=== PATIENT | male | born 1955 | race Caucasian/White ===

== ENCOUNTER 2016-09-15 01:43 | Inpatient (IN) | payer BC, MEDICARE ==
[2016-09-15] MEDS ORDERED: NITROGLYCERIN-D5W PMX 50 MG in DEXTROSE/WATER 1 250ML.BAG IV STA (02:00)
[2016-09-15 02:36] LABS: Calcium 9.3 mg/dL (8.4-10.2); Potassium 4.6 mmol/L (3.5-5.1); Total Bilirubin 0.5 mg/dL (0.2-1.3); Total Protein 6.8 g/dL (6.3-8.2)
[2016-09-15 02:40] LABS: Basophils # (A) 0.1 k/uL (0-0.2); Basophils % (A) 1 %; CHCM 32.1; Eosinophils # (A) 0.3 k/uL (0-0.7); Eosinophils % (A) 2 %; HCT 48.4 % (39.0-53.0); HDW 2.76; HGB 15.3 gm/dL (13.0-17.5); Luc # (Auto) 0.21; Luc % (Auto) 1; Lymphocytes # (A) 2.2 k/uL (1.0-4.8); Lymphocytes % (A) 15 %; MCH 28.8 pg (25.0-35.0); MCHC 31.6 g/dL (31.0-37.0); MCV 91.2 fL (80.0-100.0); Mean Platelet Volume 7.5; Monocytes # (A) 0.6 k/uL (0-1.0); Monocytes % (A) 4 %; Neutrophils # (A) 11.2 k/uL (1.3-7.7); Neutrophils % (A) 77 %; WBC 14.6 k/uL (3.8-10.6)
[2016-09-15 02:41] LABS: INR 1.1 (<1.1); Prothrombin Time 10.8 sec (9.0-12.0)
[2016-09-15 02:42] LABS: Partial Thromboplastin Time 26.5 sec (22.0-30.0)
[2016-09-15 03:11] LABS: Creatine Kinase MB 5.1 ng/mL (0.0-2.4); Troponin I 0.548 ng/mL (0.000-0.034)
--- NOTE | 2016-09-15 03:36 | XR ---
EXAM: XR Chest, 1 View CLINICAL HISTORY: Reason: dyspnea TECHNIQUE: Frontal view of the chest. COMPARISON: CXR 10/20/15 FINDINGS: Lungs: Pulmonary vascular congestion and interstitial infiltrates suggestive of pulmonary edema in the setting of congestive failure. Pleural space: Small pleural effusions. No pneumothorax. Heart: Unremarkable. No cardiomegaly. Mediastinum: Unremarkable. Bones/joints: Unremarkable. IMPRESSION: Pulmonary vascular congestion and interstitial infiltrates suggestive of pulmonary edema in the setting of congestive failure.
[2016-09-15] MEDS ORDERED: ENOXAPARIN 80 MG/0.8 ML SYRINGE SQ STA (04:02)
[2016-09-15] MEDS ORDERED: FUROSEMIDE 10 MG/ML 4 ML VIAL IV SCH (04:45)
[2016-09-15] MEDS ORDERED: SODIUM CHLORIDE 0.9% 1,000 ML IV SCH (04:45)
[2016-09-15] MEDS ORDERED: MAGNESIUM SULFATE SYG 4.06 MEQ/ML SYRINGE IV ONE (05:00)
[2016-09-15] MEDS ORDERED: ceFAZolin 1,000 MG in SODIUM CHLORIDE 0.9% IRRIGATIO 1,000 ML IRRIGATION ONE (05:00)
[2016-09-15] MEDS ORDERED: ALBUMIN HUMAN 5% 500 ML in EMPTY BAG 1 BAG IVPB ONE ×6 (05:00)
[2016-09-15] MEDS ORDERED: NOREPINEPHRIN 4 MG-0.9% NS PMX 4 MG/250 ML ML IV SCH (05:00)
[2016-09-15] MEDS ORDERED: ceFAZolin 2 GM in SODIUM CHLORIDE 0.9% 30 ML IVPB ONE (05:00)
[2016-09-15] MEDS ORDERED: HEPARIN SODIUM 1,000 UN/ML (10ML VL) IV ONE ×2 (05:00→12:38)
[2016-09-15] MEDS ORDERED: ceFAZolin 2,000 MG in SODIUM CHLORIDE 0.9% 30 ML IVPB ONE (05:00)
[2016-09-15] MEDS ORDERED: PROTAMINE SULFATE 10 MG/ML 25 ML VIAL IV ONE (05:00)
[2016-09-15] MEDS ORDERED: DEXTROSE 5% IN WATER 1,000 ML with POTASSIUM CHLORIDE 25 MEQ, SODIUM CHLORIDE 4MEQ/ML V... IV SCH ×6 (05:00)
[2016-09-15] MEDS ORDERED: ALBUMIN HUMAN 25% 50 ML in EMPTY BAG 1 BAG IVPB ONE (05:00)
[2016-09-15] MEDS ORDERED: AMINOCAPROIC ACID 5,000 MG in DEXTROSE 5% IN WATER 50 ML IV ONE ×4 (05:00)
[2016-09-15] MEDS ORDERED: MANNITOL 25% 12.5 GM/50 ML VIAL IV ONE ×2 (05:00)
[2016-09-15] MEDS ORDERED: PHENYLEPHRINE-0.9% NACL SYG 1 MG/10 ML SYRINGE IV ONE ×4 (05:00)
[2016-09-15] MEDS ORDERED: HEPARIN SODIUM,PORCINE 5,000 UNIT in SODIUM CHLORIDE 0.9% 500 ML IV ONE (05:00)
[2016-09-15] MEDS ORDERED: SODIUM BICARB 8.4% 50 ML SYR (1 MEQ/ML) IV ONE (05:00)
[2016-09-15] MEDS ORDERED: PROTAMINE SULFATE 250 MG in EMPTY BAG 1 BAG IV ONE (05:00)
[2016-09-15] MEDS ORDERED: AMINOCAPROIC ACID 250 MG/ML 20 ML VIAL IV ONE (05:00)
[2016-09-15] MEDS ORDERED: CLEVIDIPINE BUTYRATE 25 MG in EMPTY BAG 1 BAG IV ONE (05:00)
[2016-09-15] MEDS ORDERED: CALCIUM CHLORIDE 100 MG/ML 10 ML SYRINGE IVP ONE (05:00)
[2016-09-15] MEDS ORDERED: PROPOFOL 500 MG in EMPTY BAG 1 BAG IV ONE (05:00)
[2016-09-15] MEDS ORDERED: PHENYLEPHRINE 40 MG in SODIUM CHLORIDE 0.9% 250 ML IV ONE (05:00)
[2016-09-15] MEDS ORDERED: NITROGLYCERIN-D5W PMX 25 MG/250 ML BTL IV ONE (05:00)
[2016-09-15] MEDS ORDERED: INSULIN REGULAR 100 UNIT in SODIUM CHLORIDE 0.9% 100 ML IV ONE (05:00)
[2016-09-15] MEDS ORDERED: DEXTROSE 5% IN WATER 1,000 ML with POTASSIUM CHLORIDE 110 MEQ, MAGNESIUM SULFATE 16 MEQ... IV SCH ×5 (05:00)
[2016-09-15] MEDS ORDERED: PAPAVERINE 360 MG in SODIUM CHLORIDE 0.9% 90 ML IV ONE (05:00)
[2016-09-15] MEDS ORDERED: CHLORHEXIDINE GLUCONATE 15 ML CUP MUCOUS MEM ONE (05:00)
[2016-09-15 06:03] LABS: Glucose,Whole Blood 191 mg/dL (75-99)
[2016-09-15 07:08] LABS: Appearance,Urine Clear (Clear); Bacteria,Urine Rare /hpf; Bilirubin,Urine 2+ (Negative); Glucose,Urine (UA) Negative (Negative); Ketones,Urine Negative (Negative); Leukocyte Esterase,Urine Negative (Negative); Mucus,Urine Rare /hpf; Nitrite,Urine Negative (Negative); PH, Urine 5.5 (5.0-8.0); Particle Count 9445; Protein,Urine 2+ (Negative); Specific Gravity,Urine 1.014 (1.001-1.035); UA Billing (MACRO vs. MICRO) MICRO; Urobilinogen,Urine <2.0 mg/dL (<2.0); WBC,Urine 4 /hpf (0-5)
[2016-09-15] MEDS ORDERED: HEPARIN SODIUM,PORCINE 5,000 UNIT/ML 1 ML VIAL SQ SCH ×2 (08:00→09:00)
[2016-09-15] MEDS ORDERED: MAGNESIUM OXIDE 400 MG TAB PO SCH (09:00)
[2016-09-15] MEDS ORDERED: CLOPIDOGREL 75 MG TAB PO SCH (09:00)
[2016-09-15] MEDS ORDERED: INSULIN DETEMIR 100 UNIT/ML 10 ML VIAL SQ SCH ×2 (09:00→21:00)
[2016-09-15] MEDS ORDERED: NICOTINE 21MG/24HR PATCH TRANSDERM SCH (09:00)
[2016-09-15] MEDS ORDERED: ASPIRIN 81 MG CHEW PO SCH (09:00)
[2016-09-15] MEDS ORDERED: LISINOPRIL 10 MG TAB PO SCH (09:00)
[2016-09-15] MEDS ORDERED: FENOFIBRATE 160 MG TAB PO SCH (09:00)
[2016-09-15] MEDS ORDERED: FLUTICASONE 50MCG/SPRAY NASAL 16GM EA NOSTRIL SCH (09:00)
[2016-09-15] MEDS ORDERED: INSULIN LISPRO (humaLOG) 300 UNIT/3 ML VIAL SQ SCH ×2 (09:00→12:30)
[2016-09-15] MEDS ORDERED: ETODOLAC 300 MG CAPSULE PO SCH (09:00)
[2016-09-15] MEDS ORDERED: INSULIN GLARGINE 100 UNIT/ML 10 ML VIAL SQ SCH (09:00)
[2016-09-15] MEDS ORDERED: PANTOPRAZOLE 40 MG TABLET PO SCH (09:00)
--- NOTE | 2016-09-15 10:38 | ED ---
SOB HPI - General Chief Complaint: Shortness of Breath Stated Complaint: diff breathing Time Seen by Provider: 09/15/16 02:00 Source: family (), EMS Mode of arrival: EMS Limitations: no limitations - History of Present Illness Initial Comments: This patient is a 60-year-old man presenting to the emergency department by EMS for shortness of breath. History from the patient is somewhat limited as he is severely dyspneic. The patient's does provide some additional history. They report that he was in his usual state of health when he went to bed. He woke up approximately an hour and a half ago with the complaint that he was feeling short of breath. His breathing worsened and they called EMS. The patient is denying chest pain. He has not had nausea or vomiting. He is diaphoretic. EMS arrived and transported him here with nebulized treatment as he has history of COPD and also oxygen. The patient states she is not feeling much better. MD Complaint: shortness of breath Onset/Timin -: minutes(s) Improves With: nothing Worsens With: lying flat Known History Of: COPD Associated Symptoms: denies other symptoms - Related Data Home Medications Medication Instructions Recorded Confirmed Cholecalciferol [Vitamin D3] 1,000 unit PO DAILY@1200 10/07/13 09/15/16 Fenofibrate Nanocrystallized 145 mg PO DAILY 10/07/13 09/15/16 [Tricor] Lisinopril [Prinivil] 10 mg PO BID 10/07/13 09/15/16 Magnesium 200 mg PO DAILY 10/07/13 09/15/16 Melatonin 5 mg PO HS 10/07/13 09/15/16 Simvastatin [Zocor] 40 mg PO HS 10/07/13 09/15/16 Etodolac [Lodine] 300 mg PO BID 10/20/15 09/15/16 Fluticasone Nasal [place] [Flonase 1 spray EA NOSTRIL DAILY PRN 10/20/15 09/15/16 Nasal [place]] Insulin Aspart [NovoLOG] See Protocol SQ ACHS 09/15/16 09/15/16 Insulin Detemir [Levemir] 40 units SQ AC-BRKFST 09/15/16 09/15/16 Insulin Detemir [Levemir] 45 unit SQ HS 09/15/16 09/15/16 Previous Rx's Medication Instructions Recorded Clopidogrel [Plavix] 75 mg PO DAILY #30 tab 10/09/13 Aspirin 81 mg PO DAILY chew 10/22/15 Allergies Allergy/AdvReac Type Severity Reaction Status Date / Time No Known Allergies Allergy Verified 09/15/16 07:48 Review of Systems ROS Statement: Those systems with pertinent positive or pertinent negative responses have been documented in the HPI. ROS Other: All systems not noted in ROS Statement are negative. Limitations: ROS unobtainable due to patients medical condition Constitutional: Denies: fever Respiratory: Reports: dyspnea. Denies: cough, hemoptysis Cardiovascular: Reports: orthopnea. Denies: chest pain, edema, syncope Gastrointestinal: Denies: abdominal pain, vomiting, diarrhea Genitourinary: Denies: dysuria Musculoskeletal: Denies: back pain Skin: Denies: rash Neurological: Denies: headache, weakness, numbness Psychiatric: Reports: anxiety Past Medical History Past Medical History: Chest Pain / Angina, COPD, CVA/TIA, Diabetes Mellitus, Hyperlipidemia, Hypertension, Osteoarthritis (OA), Renal Disease, Supraventricular Tachycardia (SVT), Syncope, Vascular Disorder Additional Past Medical History / Comment(s): BACK PAIN History of Any Multi-Drug Resistant Organisms: None Reported Past Surgical History: Appendectomy, Hernia Repair, Joint Replacement Additional Past Surgical History / Comment(s): RIGHT HIP REPLACEMENT Past Anesthesia/Blood Transfusion Reactions: No Reported Reaction Past Psychological History: No Psychological Hx Reported Smoking Status: Current every day smoker Additional Past Alcohol Use History / Comment(s): 3 cigarellos a day - Past Family History Father Family Medical History: Myocardial Infarction ([place]) Mother Family Medical History: Coronary Artery Disease (CAD) Daughter(s) Family Medical History: No Reported History Son(s) Family Medical History: No Reported History General Exam Limitations: no limitations General appearance: alert, in distress Head exam: Present: atraumatic, normocephalic Eye exam: Present: normal appearance. Absent: scleral icterus, conjunctival injection Neck exam: Present: normal inspection, other (No JVD) Respiratory exam: Present: respiratory distress, wheezes, accessory muscle use, other (Patient is tachycardic, rate approximately 36 at my initial evaluation.) . Absent: rales, rhonchi, stridor Cardiovascular Exam: Present: normal rhythm, tachycardia (Rate is approximately 144 at my initial exam), gallop. Absent: systolic murmur, diastolic murmur, rubs GI/Abdominal exam: Present: soft. Absent: distended, tenderness, guarding, rebound, mass Extremities exam: Present: normal inspection, normal capillary refill. Absent: pedal edema, calf tenderness Back exam: Present: normal inspection. Absent: CVA tenderness (R), CVA tenderness (L) Neurological exam: Present: alert Psychiatric exam: Present: anxious Skin exam: Present: warm, intact, normal color, diaphoretic. Absent: rash, cyanosis, erythema, petechiae, pallor, mottled Course Vital Signs 09/15/16 09/15/16 09/15/16 01:51 01:55 01:56 Temperature 97.1 F L Pulse Rate 136 H 134 H 130 H Respiratory 48 H 48 H 46 H Rate Blood Pressure 188/117 176/96 156/87 O2 Sat by Pulse 96 94 L 94 L Oximetry 09/15/16 09/15/16 09/15/16 02:01 02:06 02:11 Temperature Pulse Rate 121 H 118 H 94 Respiratory 40 H 40 H 40 H Rate Blood Pressure 138/75 135/78 90/64 O2 Sat by Pulse 94 L 94 L 95 Oximetry 09/15/16 09/15/16 09/15/16 02:16 02:21 02:25 Temperature Pulse Rate 89 102 H 102 H Respiratory 40 H 28 H 25 H Rate Blood Pressure 81/50 79/52 83/53 O2 Sat by Pulse 95 98 98 Oximetry 09/15/16 09/15/16 09/15/16 02:30 02:35 02:41 Temperature Pulse Rate 102 H 101 H 99 Respiratory 32 H 20 22 Rate Blood Pressure 86/59 95/60 103/61 O2 Sat by Pulse 98 98 98 Oximetry 09/15/16 09/15/16 09/15/16 02:46 02:51 02:56 Temperature Pulse Rate 98 98 96 Respiratory 20 20 20 Rate Blood Pressure 107/63 103/58 101/60 O2 Sat by Pulse 98 99 99 Oximetry 09/15/16 09/15/16 09/15/16 03:06 03:11 03:16 Temperature Pulse Rate 94 92 92 Respiratory 20 20 20 Rate Blood Pressure 97/66 105/63 104/62 O2 Sat by Pulse 98 99 98 Oximetry 09/15/16 09/15/16 09/15/16 03:21 03:26 03:31 Temperature Pulse Rate 94 92 92 Respiratory 18 18 16 Rate Blood Pressure 105/62 105/58 103/57 O2 Sat by Pulse 97 97 97 Oximetry 09/15/16 09/15/16 09/15/16 03:36 03:41 03:46 Temperature Pulse Rate 90 92 90 Respiratory 16 16 16 Rate Blood Pressure 106/59 105/53 103/58 O2 Sat by Pulse 97 96 97 Oximetry 09/15/16 09/15/16 09/15/16 04:06 04:11 04:16 Temperature Pulse Rate 94 88 88 Respiratory 20 20 20 Rate Blood Pressure 101/56 103/55 93/52 O2 Sat by Pulse 92 L 98 97 Oximetry 09/15/16 09/15/16 09/15/16 04:21 04:26 04:36 Temperature Pulse Rate 86 92 86 Respiratory 20 20 20 Rate Blood Pressure 103/55 109/61 106/58 O2 Sat by Pulse 96 99 98 Oximetry 09/15/16 09/15/16 09/15/16 04:41 04:46 04:51 Temperature Pulse Rate 88 86 86 Respiratory 20 20 20 Rate Blood Pressure 101/55 102/58 113/63 O2 Sat by Pulse 98 99 98 Oximetry 09/15/16 09/15/16 04:56 05:16 Temperature 97.6 F Pulse Rate 88 Respiratory 20 Rate Blood Pressure 101/60 O2 Sat by Pulse 98 Oximetry Medical Decision Making - Medical Decision Making Patient is 60-year-old man with severe dyspnea and in congestive heart failure. He is changed over to the nonrebreather mask on arrival and he is given IV nitroglycerin by myself and boluses with reassessment. I did spend an initial 20 minutes at the bed side administering the boluses and reassessing the patient. He has improvement in his blood pressure and respiratory rate. The diaphoresis resolved and he is clinically feeling better. Case D/W Dr. Hidalgo, who will admit with cardiology consultationj. Patient found to have somewhat elevated troponin due to the CHF exacerbation and there may be a component non-STEMI. Patient has mild elevation of d-dimer, but the renal function is slightly elevated. Patient to have VQ scan and given Lovenox as coverage for both possible and STEMI and possible PE though with the resolution of the dyspnea suspect that all symptoms due to the hypertensive emergency with CHF/pulmonary edema. - Lab Data Result diagrams: 09/15/16 02:10 09/15/16 02:10 Lab Results 09/15/16 09/15/16 09/15/16 Range/Units 02:10 02:10 02:10 WBC 14.6 H (3.8-10.6) k/uL RBC 5.30 (4.30-5.90) m/uL Hgb 15.3 (13.0-17.5) gm/dL Hct 48.4 (39.0-53.0) % MCV 91.2 (80.0-100.0) fL MCH 28.8 (25.0-35.0) pg MCHC 31.6 (31.0-37.0) g/dL RDW 14.0 (11.5-15.5) % Plt Count 254 (150-450) k/uL Neutrophils % 77 % Lymphocytes % 15 % Monocytes % 4 % Eosinophils % 2 % Basophils % 1 % Neutrophils # 11.2 H (1.3-7.7) k/uL Lymphocytes # 2.2 (1.0-4.8) k/uL Monocytes # 0.6 (0-1.0) k/uL Eosinophils # 0.3 (0-0.7) k/uL Basophils # 0.1 (0-0.2) k/uL PT (9.0-12.0) sec INR (<1.1) APTT (22.0-30.0) sec D-Dimer (<0.60) mg/L FEU Sodium 140 (137-145) mmol/L Potassium 4.6 (3.5-5.1) mmol/L Chloride 112 H (98-107) mmol/L Carbon Dioxide 16 L (22-30) mmol/L Anion Gap 12 mmol/L BUN 41 H (9-20) mg/dL Creatinine 1.80 H (0.66-1.25) mg/dL Est GFR (MDRD) Af Amer 47 (>60 ml/min/1.73 sqM) Est GFR (MDRD) Non-Af 38 (>60 ml/min/1.73 sqM) Glucose 166 H (74-99) mg/dL Calcium 9.3 (8.4-10.2) mg/dL Magnesium 2.0 (1.6-2.3) mg/dL Total Bilirubin 0.5 (0.2-1.3) mg/dL AST 80 H (17-59) U/L ALT 119 H (21-72) U/L Alkaline Phosphatase 91 (38-126) U/L Total Creatine Kinase 310 H (55-170) U/L CK-MB (CK-2) 5.1 H* (0.0-2.4) ng/mL CK-MB (CK-2) Rel Index 1.6 Troponin I 0.548 H* (0.000-0.034) ng/mL NT-Pro-B Natriuret Pep pg/mL Total Protein 6.8 (6.3-8.2) g/dL Albumin 4.1 (3.5-5.0) g/dL 09/15/16 09/15/16 Range/Units 02:10 02:10 WBC (3.8-10.6) k/uL RBC (4.30-5.90) m/uL Hgb (13.0-17.5) gm/dL Hct (39.0-53.0) % MCV (80.0-100.0) fL MCH (25.0-35.0) pg MCHC (31.0-37.0) g/dL RDW (11.5-15.5) % Plt Count (150-450) k/uL Neutrophils % % Lymphocytes % % Monocytes % % Eosinophils % % Basophils % % Neutrophils # (1.3-7.7) k/uL Lymphocytes # (1.0-4.8) k/uL Monocytes # (0-1.0) k/uL Eosinophils # (0-0.7) k/uL Basophils # (0-0.2) k/uL PT 10.8 (9.0-12.0) sec INR 1.1 (<1.1) APTT 26.5 (22.0-30.0) sec D-Dimer 1.19 H (<0.60) mg/L FEU Sodium (137-145) mmol/L Potassium (3.5-5.1) mmol/L Chloride (98-107) mmol/L Carbon Dioxide (22-30) mmol/L Anion Gap mmol/L BUN (9-20) mg/dL Creatinine (0.66-1.25) mg/dL Est GFR (MDRD) Af Amer (>60 ml/min/1.73 sqM) Est GFR (MDRD) Non-Af (>60 ml/min/1.73 sqM) Glucose (74-99) mg/dL Calcium (8.4-10.2) mg/dL Magnesium (1.6-2.3) mg/dL Total Bilirubin (0.2-1.3) mg/dL AST (17-59) U/L ALT (21-72) U/L Alkaline Phosphatase (38-126) U/L Total Creatine Kinase (55-170) U/L CK-MB (CK-2) (0.0-2.4) ng/mL CK-MB (CK-2) Rel Index Troponin I (0.000-0.034) ng/mL NT-Pro-B Natriuret Pep 930 pg/mL Total Protein (6.3-8.2) g/dL Albumin (3.5-5.0) g/dL - EKG Data EKG shows normal: sinus rhythm, axis (Left axis), intervals (Normal), QRS complexes (LVH), ST-T waves (There are lateral T inversions) Rate: tachycardia Interpretation: LVH Disposition Clinical Impression: Congestive heart failure, Elevated d-dimer, Elevated troponin I level, Hypertensive emergency, Acute renal failure Disposition: ADMITTED IP TO THIS [facility] Condition: Serious
[2016-09-15] MEDS ORDERED: ALPRAZolam 0.5 MG TAB PO PRN (11:15)
[2016-09-15] MEDS ORDERED: ALPRAZolam 0.25 MG TAB PO PRN (11:15)
[2016-09-15] MEDS ORDERED: SODIUM CHLORIDE 0.9% 1,000 ML in EMPTY BAG 1 BAG IV ONE (11:15)
[2016-09-15] MEDS ORDERED: NITROGLYCERIN SL TABS 0.4 MG TAB SUBLINGUAL PRN (11:15)
[2016-09-15] MEDS ORDERED: ASPIRIN 325 MG TAB PO STA (11:15)
[2016-09-15] MEDS ORDERED: ATORVASTATIN 80 MG TAB PO STA (11:15)
--- NOTE | 2016-09-15 11:20 | P.NPCON ---
History of Present Illness - Reason for Consult acute renal failure - History of Present Illness Reason for consultation: Acute kidney injury on chronic kidney disease History of present illness: Patient is a 60-year-old male seen in renal consultation for acute kidney injury on chronic kidney disease. Patient has chronic kidney disease stage III secondary to diabetic kidney disease. His baseline creatinine appears to be near 1.5. 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 Creatinine on admission is 1.8. Patient presented to the hospital with dyspnea that started last night. Patient states he was unable to take a deep breath. Denies chest pain. His blood pressures have been in the systolic 80s to 100s. Chest x-ray revealed pulmonary edema and is currently maintained on Lasix 40 mg IV twice daily. Patient is a long-standing history of diabetes mellitus. His prior urinalysis revealed 2+ proteinuria without any hematuria. Appetite is good. No vomiting or diarrhea. Denies chest pain. Denies use of NSAIDs. Denies any family history of renal disease. Admits to good urine output without any hematuria or dysuria. No fever or chills. Vital signs are stable. General: The patient appeared well nourished and normally developed. HEENT: Head exam is unremarkable. Neck is without jugular venous distension. LUNGS: No rhonchi or wheezes. Breath sounds decreased. HEART: Rate and Rhythm are regular. First and second heart sounds normal. No murmurs, rubs or gallops. ABDOMEN: Abdominal exam reveals normal bowel sounds. Non-tender and non- distended. No evidence of peritonitis. Obese. EXTREMITITES: Trace edema. Past Medical History Past Medical History: Chest Pain / Angina, COPD, CVA/TIA, Diabetes Mellitus, Hyperlipidemia, Hypertension, Osteoarthritis (OA), Renal Disease, Supraventricular Tachycardia (SVT), Syncope, Vascular Disorder Additional Past Medical History / Comment(s): BACK PAIN History of Any Multi-Drug Resistant Organisms: None Reported Past Surgical History: Appendectomy, Hernia Repair, Joint Replacement Additional Past Surgical History / Comment(s): RIGHT HIP REPLACEMENT Past Anesthesia/Blood Transfusion Reactions: No Reported Reaction Past Psychological History: No Psychological Hx Reported Smoking Status: Current every day smoker Additional Past Alcohol Use History / Comment(s): 3 cigarellos a day - Past Family History Father Family Medical History: Myocardial Infarction ([place]) Mother Family Medical History: Coronary Artery Disease (CAD) Daughter(s) Family Medical History: No Reported History Son(s) Family Medical History: No Reported History Medications and Allergies Home Medications Medication Instructions Recorded Confirmed Type Cholecalciferol [Vitamin D3] 1,000 unit PO DAILY@1200 10/07/13 09/15/16 History Fenofibrate Nanocrystallized 145 mg PO DAILY 10/07/13 09/15/16 History [Tricor] Lisinopril [Prinivil] 10 mg PO BID 10/07/13 09/15/16 History Magnesium 200 mg PO DAILY 10/07/13 09/15/16 History Melatonin 5 mg PO HS 10/07/13 09/15/16 History Simvastatin [Zocor] 40 mg PO HS 10/07/13 09/15/16 History Etodolac [Lodine] 300 mg PO BID 10/20/15 09/15/16 History Fluticasone Nasal [place] [Flonase 1 spray EA NOSTRIL DAILY PRN 10/20/15 09/15/16 History Nasal [place]] Insulin Aspart [NovoLOG] See Protocol SQ ACHS 09/15/16 09/15/16 History Insulin Detemir [Levemir] 40 units SQ AC-BRKFST 09/15/16 09/15/16 History Insulin Detemir [Levemir] 45 unit SQ HS 09/15/16 09/15/16 History Allergies Allergy/AdvReac Type Severity Reaction Status Date / Time No Known Allergies Allergy Verified 09/15/16 07:48 Physical Exam Vitals: Vital Signs Temp Pulse Pulse Resp BP BP Pulse Ox 09/15/16 08:00 97.6 F 88 20 110/64 96 09/15/16 06:32 90 20 09/15/16 05:30 97.1 F L 90 20 115/70 100 09/15/16 05:16 97.6 F 09/15/16 04:56 88 20 101/60 98 09/15/16 04:51 86 20 113/63 98 09/15/16 04:46 86 20 102/58 99 09/15/16 04:41 88 20 101/55 98 09/15/16 04:36 86 20 106/58 98 09/15/16 04:26 92 20 109/61 99 09/15/16 04:21 86 20 103/55 96 09/15/16 04:16 88 20 93/52 97 09/15/16 04:11 88 20 103/55 98 09/15/16 04:06 94 20 101/56 92 L 09/15/16 03:46 90 16 103/58 97 09/15/16 03:41 92 16 105/53 96 09/15/16 03:36 90 16 106/59 97 09/15/16 03:31 92 16 103/57 97 09/15/16 03:26 92 18 105/58 97 09/15/16 03:21 94 18 105/62 97 09/15/16 03:16 92 20 104/62 98 09/15/16 03:11 92 20 105/63 99 09/15/16 03:06 94 20 97/66 98 09/15/16 02:56 96 20 101/60 99 09/15/16 02:51 98 20 103/58 99 09/15/16 02:46 98 20 107/63 98 09/15/16 02:41 99 22 103/61 98 09/15/16 02:35 101 H 20 95/60 98 09/15/16 02:30 102 H 32 H 86/59 98 09/15/16 02:25 102 H 25 H 83/53 98 09/15/16 02:21 102 H 28 H 79/52 98 09/15/16 02:16 89 40 H 81/50 95 09/15/16 02:11 94 40 H 90/64 95 09/15/16 02:06 118 H 40 H 135/78 94 L 09/15/16 02:01 121 H 40 H 138/75 94 L 09/15/16 01:56 130 H 46 H 156/87 94 L 09/15/16 01:55 134 H 48 H 176/96 94 L 09/15/16 01:51 97.1 F L 136 H 48 H 188/117 96 Intake and Output 09/14/16 09/15/16 09/15/16 22:59 06:59 14:59 Intake Total 0.25 Output Total 550 Balance 0.25 -550 Intake: Intake, IV Titration 0.25 Amount Nitroglycerin-D5w Pmx 50 0.25 mg In Dextrose/Water 1 250ml.bag @ 50 MCG/MIN 15 mls/hr IV .[id number] STA Rx#:[id number] Output: Urine 550 Other: Voiding Method Toilet # Voids 1 Weight 81.7 kg Results - Lab Results Most recent lab results Calcium 9.3 mg/dL (8.4-10.2) 09/15/16 02:10 Magnesium 2.0 mg/dL (1.6-2.3) 09/15/16 02:10 09/15/16 02:10 09/15/16 02:10 Assessment and Plan Plan: Assessment: #1. Nonoliguric acute kidney injury mostly prerenal secondary to diuresis and hypotension. Creatinine 1.8 today. #2. Chronic kidney disease stage III secondary to diabetic kidney disease with baseline creatinine near 1.5. #3. Metabolic acidosis secondary to acute kidney injury. #4. Volume overload. #5. Dyspnea related to vascular congestion. Rule out cardiac etiology. And: Continue Lasix 40 mg IV twice daily. Follow-up echocardiogram results. Avoid nephrotoxic agents and hypotensive episodes. Hold lisinopril for now. Add oral sodium bicarbonate 1300 mg twice daily. Maintain low salt diet. Repeat electrolytes in the morning. I did discuss with the patient the risk of developing contrast-induced nephropathy post cardiac catheterization and the potential need for renal replacement therapy. Patient is at a moderate risk due to his underlying CKD as well as diabetes status. Patient understands and agrees. I would recommend holding Lasix the night before and the the day of the cardiac catheterization. Will need to be cautious with IV hydration as he is currently fluid overloaded. Thank you for the consultation. I'll continue to follow the patient with you during his hospital stay.
--- NOTE | 2016-09-15 11:20 | P.PN ---
Progress Note - Text This is an addendum to the dictated cardiology consultation. The patient has a known history of hypertension, hyperlipidemia and diabetes mellitus as well as history of peripheral vessel disease status post CVA and TIA who presents with worsening dyspnea, quite severe on presentation and was EKG changes and T-wave inversion that is new to him there is minimal ST elevation in lead aVR. The patient has no prior document history of coronary disease and in 2016 his systolic function was normal. He denies any history of myocardial infarction or congestive heart failure. On presentation he was in severe pulmonary edema and he had elevated blood pressure. His troponin was minimally elevated and he had an abnormal echocardiogram on the preliminary report. His renal functions are abnormal at baseline but worse today. The patient presents with acute congestive heart failure, pulmonary edema and acute coronary syndrome. I have recommended to proceed with coronary angiography to further assess his status and guide his treatment. His a high risk procedure in view of the baseline renal function abnormality. Those findings and recommendations were discussed with the patient and he is in full understanding and agreement. Thank you for this consult we will follow with you.
--- NOTE | 2016-09-15 11:26 | P.CRDCN ---
History of Present Illness Consult date: 09/15/16 Requesting physician: Ashok Hidalgo Reason for Consult (text): Non-STEMI Chief complaint: Severe shortness of breath History of present illness: This is a 60-year-old gentleman with history of diabetes, hypertension , hyperlipidemia, prior TIA, chronic kidney disease, nicotine dependence, who presents to the hospital with symptoms of severe shortness of breath. He states that for the past couple of days he has had significant exertional shortness of breath to the point where he needed to stop what he was doing just to be able to breathe. He states also that he has noticed some tightness in his chest at the time of his difficulty in breathing. He denies any diaphoresis or nausea. Last night the patient states that he went to bed, woke up gasping for air, states that he thought he was going to . He called EMS and was brought here to the emergency room for further evaluation. We do not have EMS documentation in the chart. EKG on arrival unavailable, no scanned copy in the chart, no hard copy in the chart. No emergency room notes available. White blood cell count 14.6, hemoglobin 15.3, d-dimer 1.1, potassium 4.6, BUN 41, creatinine 1.8. Initial troponin which was drawn at 2 AM 0.54. BNP level 930. Chest x-ray performed on arrival revealed pulmonary vascular congestion and interstitial infiltrates suggestive of pulmonary edema. Blood pressure on arrival here 212/122, heart rate in the 130s, respirations 48, temperature 97.1, he was 95% on a 15% nonrebreather. It appears from the orders that the patient was initiated on a nitro drip at 50 mics, An hour later , the patient's blood pressure went down to 80 systolic. This morning's blood pressure 110/60 with a heart rate in the 80s. Patient was initiated on IV Lasix in the emergency room, and given a one time dose of Lovenox. I did obtain a stat EKG this morning which shows a normal sinus rhythm with ST elevation in aVR, ST depression and T-wave inversion in the lateral leads. We will attempt to obtain EKG performed on arrival in the emergency room as well as ER and EMS notes. At the time of my examination this morning patient continues to have mild shortness of breath, however much from admission. Past Medical History Past Medical History: Chest Pain / Angina, COPD, CVA/TIA, Diabetes Mellitus, Hyperlipidemia, Hypertension, Osteoarthritis (OA), Renal Disease, Supraventricular Tachycardia (SVT), Syncope, Vascular Disorder Additional Past Medical History / Comment(s): BACK PAIN History of Any Multi-Drug Resistant Organisms: None Reported Past Surgical History: Appendectomy, Hernia Repair, Joint Replacement Additional Past Surgical History / Comment(s): RIGHT HIP REPLACEMENT Past Anesthesia/Blood Transfusion Reactions: No Reported Reaction Past Psychological History: No Psychological Hx Reported Smoking Status: Current every day smoker Additional Past Alcohol Use History / Comment(s): 3 cigarellos a day - Past Family History Father Family Medical History: Myocardial Infarction ([place]) Mother Family Medical History: Coronary Artery Disease (CAD) Daughter(s) Family Medical History: No Reported History Son(s) Family Medical History: No Reported History Medications and Allergies Home Medications Medication Instructions Recorded Confirmed Type Cholecalciferol [Vitamin D3] 1,000 unit PO DAILY@1200 10/07/13 09/15/16 History Fenofibrate Nanocrystallized 145 mg PO DAILY 10/07/13 09/15/16 History [Tricor] Lisinopril [Prinivil] 10 mg PO BID 10/07/13 09/15/16 History Magnesium 200 mg PO DAILY 10/07/13 09/15/16 History Melatonin 5 mg PO HS 10/07/13 09/15/16 History Simvastatin [Zocor] 40 mg PO HS 10/07/13 09/15/16 History Etodolac [Lodine] 300 mg PO BID 10/20/15 09/15/16 History Fluticasone Nasal [place] [Flonase 1 spray EA NOSTRIL DAILY PRN 10/20/15 09/15/16 History Nasal [place]] Insulin Aspart [NovoLOG] See Protocol SQ ACHS 09/15/16 09/15/16 History Insulin Detemir [Levemir] 40 units SQ AC-BRKFST 09/15/16 09/15/16 History Insulin Detemir [Levemir] 45 unit SQ HS 09/15/16 09/15/16 History Allergies Allergy/AdvReac Type Severity Reaction Status Date / Time No Known Allergies Allergy Verified 09/15/16 07:48 Physical Exam Vitals: Vital Signs Temp Pulse Pulse Resp BP BP Pulse Ox 09/15/16 06:32 90 20 06/20/17 05:30 97.1 F L 90 20 115/70 100 09/15/16 05:16 97.6 F 09/15/16 04:56 88 20 101/60 98 09/15/16 04:51 86 20 113/63 98 09/15/16 04:46 86 20 102/58 99 09/15/16 04:41 88 20 101/55 98 09/15/16 04:36 86 20 106/58 98 09/15/16 04:26 92 20 109/61 99 09/15/16 04:21 86 20 103/55 96 09/15/16 04:16 88 20 93/52 97 09/15/16 04:11 88 20 103/55 98 09/15/16 04:06 94 20 101/56 92 L 09/15/16 03:46 90 16 103/58 97 09/15/16 03:41 92 16 105/53 96 09/15/16 03:36 90 16 106/59 97 09/15/16 03:31 92 16 103/57 97 09/15/16 03:26 92 18 105/58 97 09/15/16 03:21 94 18 105/62 97 09/15/16 03:16 92 20 104/62 98 09/15/16 03:11 92 20 105/63 99 09/15/16 03:06 94 20 97/66 98 09/15/16 02:56 96 20 101/60 99 09/15/16 02:51 98 20 103/58 99 09/15/16 02:46 98 20 107/63 98 09/15/16 02:41 99 22 103/61 98 09/15/16 02:35 101 H 20 95/60 98 09/15/16 02:30 102 H 32 H 86/59 98 09/15/16 02:25 102 H 25 H 83/53 98 09/15/16 02:21 102 H 28 H 79/52 98 09/15/16 02:16 89 40 H 81/50 95 09/15/16 02:11 94 40 H 90/64 95 09/15/16 02:06 118 H 40 H 135/78 94 L 09/15/16 02:01 121 H 40 H 138/75 94 L 09/15/16 01:56 130 H 46 H 156/87 94 L 09/15/16 01:55 134 H 48 H 176/96 94 L 09/15/16 01:51 97.1 F L 136 H 48 H 188/117 96 Intake and Output 09/14/16 09/15/16 09/15/16 22:59 06:59 14:59 Intake Total 0.25 Balance 0.25 Intake: Intake, IV Titration 0.25 Amount Nitroglycerin-D5w Pmx 50 0.25 mg In Dextrose/Water 1 250ml.bag @ 50 MCG/MIN 15 mls/hr IV .[id number] STA Rx#:[id number] Other: Voiding Method Toilet # Voids 1 Weight 81.7 kg PHYSICAL EXAMINATION: HEENT: Head is atraumatic, normocephalic. Pupils equal, round. Neck is supple. There is elevated jugular venous pressure. HEART EXAMINATION: Heart S1 and S2 systolic murmur is heard CHEST EXAMINATION: Lungs reveal diminished air entry to bilateral bases ABDOMEN: Soft, obese, nontender. Bowel sounds are heard. No organomegaly noted. EXTREMITIES: 2+ peripheral pulses with trace evidence of peripheral edema and no calf tenderness noted. NEUROLOGIC patient is awake, alert and oriented -3. . Results 09/15/16 02:10 09/15/16 02:10 Cardiac Enzymes 09/15/16 09/15/16 Range/Units 02:10 02:10 AST 80 H (17-59) U/L CK-MB (CK-2) 5.1 H* (0.0-2.4) ng/mL Troponin I 0.548 H* (0.000-0.034) ng/mL Coagulation 09/15/16 Range/Units 02:10 PT 10.8 (9.0-12.0) sec APTT 26.5 (22.0-30.0) sec CBC 09/15/16 Range/Units 02:10 WBC 14.6 H (3.8-10.6) k/uL RBC 5.30 (4.30-5.90) m/uL Hgb 15.3 (13.0-17.5) gm/dL Hct 48.4 (39.0-53.0) % Plt Count 254 (150-450) k/uL Comprehensive Metabolic Panel 09/15/16 Range/Units 02:10 Sodium 140 (137-145) mmol/L Potassium 4.6 (3.5-5.1) mmol/L Chloride 112 H (98-107) mmol/L Carbon Dioxide 16 L (22-30) mmol/L BUN 41 H (9-20) mg/dL Creatinine 1.80 H (0.66-1.25) mg/dL Glucose 166 H (74-99) mg/dL Calcium 9.3 (8.4-10.2) mg/dL AST 80 H (17-59) U/L ALT 119 H (21-72) U/L Alkaline Phosphatase 91 (38-126) U/L Total Protein 6.8 (6.3-8.2) g/dL Albumin 4.1 (3.5-5.0) g/dL Current Medications Generic Name Dose Route Start Last Admin Trade Name Freq PRN Reason Stop Dose Admin Ascorbic Acid 500 mg 09/15/16 12:00 Vitamin C PO DAILY@1200 [facility] Aspirin 81 mg 09/15/16 09:00 Aspirin PO DAILY [facility] Atorvastatin Calcium 20 mg 09/15/16 21:00 Lipitor PO HS [facility] Cholecalciferol 1,000 unit 09/15/16 12:00 Vitamin D3 PO DAILY@1200 [facility] Clopidogrel Bisulfate 75 mg 09/15/16 09:00 Plavix PO DAILY [facility] Fenofibrate 160 mg 09/15/16 09:00 Lofibra PO DAILY [facility] Fluticasone Propionate 1 spray 09/15/16 09:00 Flonase Nasal [place] EA NOSTRIL DAILY [facility] Furosemide 40 mg 09/15/16 04:45 09/15/16 06:00 Lasix IV 40 mg Q12H TERESA Administration Heparin Sodium (Porcine) 5,000 unit 09/15/16 09:00 Heparin SQ Q12HR [facility] Nitroglycerin/Dextrose 50 mg/ 250 mls @ 15 mls/hr 09/15/16 02:00 09/15/16 02: 14 IV Solution IV 09/15/16 18:39 10 mcg/min .[id number] STA 3 mls/hr Protocol Titration 50 MCG/MIN Sodium Chloride 1,000 mls @ 20 mls/hr 09/15/16 04:45 09/15/16 04:59 Saline 0.9% IV 20 mls/hr .Q24H TERESA Administration Insulin Detemir 40 unit 09/15/16 09:00 Levemir SQ AC-BRKFST [facility] Insulin Detemir 45 unit 09/15/16 21:00 Levemir SQ HS TERESA Insulin Glargine 44 unit 09/15/16 09:00 Lantus SQ DAILY [facility] Insulin Human Lispro 5 unit 09/15/16 09:00 Humalog SQ TID TER[facility]A Lisinopril 10 mg 09/15/16 09:00 Zestril PO BID TER[facility]A Magnesium Oxide 400 mg 09/15/16 09:00 Mag-Ox PO DAILY TER[facility]A Melatonin 5 mg 09/15/16 21:00 Melatonin PO HS TER[facility]A Nicotine 1 patch 09/15/16 09:00 Habitrol 21mg/24hr Patch TRANSDERM DAILY [facility] Non-Formulary Medication 0 unit 09/15/16 12:30 Insulin Aspart SQ ACHS TER[facility] Pantoprazole Sodium 40 mg 09/15/16 09:00 Protonix PO AC-BRKFST TERESA Intake and Output 09/14/16 09/15/16 09/15/16 22:59 06:59 14:59 Intake Total 0.25 Balance 0.25 Intake: Intake, IV Titration 0.25 Amount Nitroglycerin-D5w Pmx 50 0.25 mg In Dextrose/Water 1 250ml.bag @ 50 MCG/MIN 15 mls/hr IV .[id number] STA Rx#:[id number] Other: Voiding Method Toilet # Voids 1 Weight 81.7 kg 09/15/16 02:10 09/15/16 02:10 EKG Interpretations (text) EKG performed this morning shows a normal sinus rhythm with ST elevation in aVR ST depression and T-wave inversion in the lateral leads. Assessment and Plan Plan: Assessment and plan #1 non-ST elevation myocardial infarction #2 hypertensive urgency #3 history of hypertension #4 congestive cardiac failure systolic acute on chronic #5 diabetes #6 hyperlipidemia #7 nicotine dependence #8 COPD #9 acute on chronic kidney disease #10 prior TIA #11 abnormal liver enzymes likely secondary to congestion Plan We will discontinue the subcu heparin, start the patient on IV heparin drip. Increase Lipitor to 40 mg daily. Continue IV Lasix. Obtain EKGs in the ER notes. Patient will need to undergo cardiac catheterization, however the wrist is increased because of the abnormal renal function. Understanding the risks, and benefits. Dr. Cowan did speak with the patient and the recommendation is to take the patient to the cardiac catheterization lab. Further recommendations to follow... DNP note has been reviewed, I agree with a documented findings and plan of care. Patient was seen and examined.
[2016-09-15] MEDS ORDERED: SODIUM CHLORIDE 0.9% 500 ML IV ONE (11:36)
[2016-09-15] MEDS ORDERED: IV FLUID CONTINUATION 850 ML IV ONE (11:36)
[2016-09-15] MEDS ORDERED: fentaNYL (PF) 50 MCG/ML 2 ML AMP IVP ONE ×2 (11:54→12:00)
[2016-09-15] MEDS ORDERED: LIDOCAINE 2% INJ 20 MG/ML SQ ONE ×2 (11:54→12:02)
[2016-09-15] MEDS ORDERED: diphenhydrAMINE 50 MG/ML 1 ML VIAL IVP ONE ×2 (11:55→12:00)
[2016-09-15 12:00] LABS: Creatine Kinase MB 6.3 ng/mL (0.0-2.4); Troponin I 0.936 ng/mL (0.000-0.034)
[2016-09-15] MEDS ORDERED: ASCORBIC ACID 500 MG TAB PO SCH (12:00)
[2016-09-15] MEDS ORDERED: CHOLECALCIFEROL 1,000 UNIT TAB PO SCH (12:00)
[2016-09-15] MEDS ORDERED: VERAPAMIL SYRINGE (5 MG/10 ML) INTRAARTER ONE (12:02)
[2016-09-15] MEDS ORDERED: INSULIN ASPART SQ SCH (12:30)
[2016-09-15] MEDS ORDERED: MD COMMUNICATION TO PHARMACY 1 EACH MISC PO ONE ×2 (12:32)
--- NOTE | 2016-09-15 12:55 | P.HPIM ---
History of Present Illness H&P Date: 09/15/16 Chief Complaint: Acute pulmonary edema, elevated troponin with possible acute coronary syndr 61-year-old male one of my office patient of known for long time with past medical history of CVA, PAD, CAD, COPD, chronic smoking, diabetes, chronic neuropathy and stage III kidney disease who was the hospital last in September 2015 for CVA. Patient has been doing well his blood sugar has been slightly elevated. Patient went to sleep was feeling well he woke up around 2:00 after midnight gasping for air having significant shortness of breath with mild tightness and pressure with mild cold sweat than slight wheezes and cough. Patient ended up coming to the emergency department at [facility] where was seen and evaluated surprisingly his chest x-ray showed sign of pulmonary edema first EKGs shows slight T waves inversion second EKG had mild change as well and his troponin continued to be mildly elevated. Patient was diagnosed with acute pulmonary edema secondary to congestive heart failure and possible from acute currently syndrome. Patient risk factor of having coronary artery disease extremely high at the time. Patient will be seen cardiology and possible need for an intervention with heart catheter. His chronic kidney disease with the current creatinine is quite bit elevated will involve nephrology diuresis patient and add Nitrol hopefully patient be more stable at this point and I hope creatinine will improve enough to allow him to go for heart catheter when he is ready. Review of Systems Constitutional: Reports chronic pain, Reports lethargy, Reports night sweats, Reports weakness, Reports weight gain, Denies as per HPI, Denies anorexia, Denies chills, Denies chronic headaches, Denies daytime sleepiness, Denies fatigue, Denies fever, Denies malaise, Denies poor appetite, Denies sweats, Denies weight loss Eyes: bilateral as per HPI Ears: bilateral: decreased hearing Ears, nose, mouth and throat: Reports nasal congestion, Reports post-nasal drip , Reports sinus pain, Reports sinus pressure, Denies as per HPI, Denies ant. neck pain, Denies bleeding gums, Denies dental pain, Denies dysphagia, Denies epistaxis, Denies headache, Denies hoarseness, Denies mouth pain, Denies nasal discharge, Denies neck fullness/pressure, Denies neck lump, Denies nose pain, Denies odynophagia, Denies swelling in mouth, Denies swelling in throat, Denies sore throat, Denies vertigo, Denies voice changes Cardiovascular: Reports chest pain, Reports claudication, Reports decreased exercise tolerance, Reports dyspnea on exertion, Reports edema, Reports high blood pressure, Reports irregular heart beat, Reports leg edema, Reports lightheadedness, Reports orthopnea, Reports paroxysmal nocturnal dyspnea, Denies as per HPI, Denies palpitations, Denies phlebitis, Denies rapid heart beat, Denies shortness of breath, Denies syncope Respiratory: Reports congestion, Reports cough, Reports dyspnea, Reports pain on inspiration, Reports sleep apnea, Denies as per HPI, Denies cough with sputum , Denies excessive sputum, Denies hemoptysis, Denies home oxygen, Denies pain, Denies pleurisy, Denies respiratory infections, Denies snoring, Denies wheezing Gastrointestinal: Reports abdominal pain, Reports bloating, Reports change in bowel habits, Reports dyspepsia, Reports indigestion, Reports loss of appetite, Reports nausea, Denies as per HPI, Denies belching, Denies BRBPR, Denies coffee ground emesis, Denies constipation, Denies diarrhea, Denies early satiety, Denies excessive gas, Denies heartburn, Denies hematemesis, Denies hematochezia , Denies jaundice, Denies lactose intolerance, Denies melena, Denies vomiting Genitourinary: Reports urinary frequency, Reports urinary hesitancy, Denies as per HPI, Denies decreased libido, Denies difficulties fathering child, Denies discharge, Denies dysuria, Denies erectile dysfunction, Denies flank pain, Denies genital pain, Denies genital sores, Denies hematuria, Denies impotence, Denies incontinence, Denies kidney stones, Denies nocturia, Denies polyuria, Denies testicular lump, Denies testicular pain, Denies urinary retention Musculoskeletal: Reports low back pain, Reports myalgias, Reports neck pain, Denies as per HPI, Denies arm numbness/tingling, Denies atrophy, Denies fractures, Denies frequent falls, Denies gait dysfunction, Denies hot joints, Denies leg numbness/tingling, Denies limitation of motion, Denies loss of height , Denies morning stiffness, Denies muscle cramps, Denies muscle weakness, Denies neck stiffness, Denies prior amputations, Denies redness of joints, Denies shooting arm pain, Denies shooting leg pain Musculoskeletal: bilateral: ankle pain Integumentary: Reports pruritus, Reports rash, Denies as per HPI, Denies acne, Denies boils, Denies brittle nails, Denies change in hair/nails, Denies color changes, Denies darkening of skin, Denies depigmentation, Denies dryness, Denies foot/leg ulcers, Denies growths, Denies hirsutism, Denies lesions, Denies onychomycosis, Denies sores, Denies striae, Denies unusual bruising, Denies wounds Neurological: Reports ataxia, Reports gait dysfunction, Reports memory loss, Reports motor disturbance, Reports paralysis, Reports tingling, Reports weakness , Denies as per HPI, Denies aphasia, Denies balance difficulties, Denies burning pain, Denies change in mentation, Denies change in smell/taste, Denies change in speech, Denies confusion, Denies convulsions, Denies double vision, Denies head injury, Denies headaches, Denies hearing difficulties, Denies lack of coordination, Denies loss of vision, Denies migraines, Denies numbness, Denies paresthesias, Denies seizures, Denies sensory deficit, Denies spasticity , Denies syncope, Denies tic, Denies transient paralysis, Denies tremors, Denies vertigo, Denies visual changes Psychiatric: Reports anhedonia, Reports anxiety, Reports change in sleep habits , Reports irritability, Denies as per HPI, Denies anxiety attacks, Denies change in appetite, Denies change in libido, Denies confusion, Denies depression , Denies difficulty concentrating, Denies disorientation, Denies hallucinations , Denies hopelessness, Denies hypersomnia, Denies insomnia, Denies memory loss, Denies mood swings, Denies paranoia, Denies sadness/tearfulness, Denies sleep disturbances, Denies suicidal ideation Endocrine: Reports cold intolerance, Reports excessive thirst, Reports nocturia , Denies as per HPI, Denies deepening of the voice, Denies excessive sweating, Denies fatigue, Denies flushing, Denies heat intolerance, Denies high blood sugars, Denies increase in ring/shoe/hat size, Denies low blood sugars, Denies palpitations, Denies polydipsia, Denies polyphagia, Denies polyuria, Denies proptosis, Denies recent glucocorticoid use, Denies thyroid mass, Denies weight change Hematologic/Lymphatic: Reports easy bruising, Denies as per HPI, Denies easy bleeding, Denies lymphadenopathy, Denies lymphedema, Denies thrombophilia Allergic/Immunologic: Denies as per HPI, Denies allergic rhinitis, Denies anaphylaxis, Denies angioedema, Denies gluten intolerance, Denies persistent infections, Denies seasonal allergies, Denies urticaria, Denies wheezing Past Medical History Past Medical History: Chest Pain / Angina, COPD, CVA/TIA, Diabetes Mellitus, Hyperlipidemia, Hypertension, Osteoarthritis (OA), Renal Disease, Supraventricular Tachycardia (SVT), Syncope, Vascular Disorder Additional Past Medical History / Comment(s): BACK PAIN History of Any Multi-Drug Resistant Organisms: None Reported Past Surgical History: Appendectomy, Hernia Repair, Joint Replacement Additional Past Surgical History / Comment(s): RIGHT HIP REPLACEMENT Past Anesthesia/Blood Transfusion Reactions: No Reported Reaction Past Psychological History: No Psychological Hx Reported Smoking Status: Current every day smoker Additional Past Alcohol Use History / Comment(s): 3 cigarellos a day - Past Family History Father Family Medical History: Myocardial Infarction ([place]) Mother Family Medical History: Coronary Artery Disease (CAD) Daughter(s) Family Medical History: No Reported History Son(s) Family Medical History: No Reported History Medications and Allergies Home Medications Medication Instructions Recorded Confirmed Type Cholecalciferol [Vitamin D3] 1,000 unit PO DAILY@1200 10/07/13 09/15/16 History Fenofibrate Nanocrystallized 145 mg PO DAILY 10/07/13 09/15/16 History [Tricor] Lisinopril [Prinivil] 10 mg PO BID 10/07/13 09/15/16 History Magnesium 200 mg PO DAILY 10/07/13 09/15/16 History Melatonin 5 mg PO HS 10/07/13 09/15/16 History Simvastatin [Zocor] 40 mg PO HS 10/07/13 09/15/16 History Etodolac [Lodine] 300 mg PO BID 10/20/15 09/15/16 History Fluticasone Nasal [place] [Flonase 1 spray EA NOSTRIL DAILY PRN 10/20/15 09/15/16 History Nasal [place]] Insulin Aspart [NovoLOG] See Protocol SQ ACHS 09/15/16 09/15/16 History Insulin Detemir [Levemir] 40 units SQ AC-BRKFST 09/15/16 09/15/16 History Insulin Detemir [Levemir] 45 unit SQ HS 09/15/16 09/15/16 History Allergies Allergy/AdvReac Type Severity Reaction Status Date / Time No Known Allergies Allergy Verified 09/15/16 07:48 Physical Exam Vitals: Vital Signs Temp Pulse Pulse Resp BP BP Pulse Ox 09/15/16 11:26 97.6 F 88 20 110/64 96 09/15/16 08:00 97.6 F 88 20 110/64 96 09/15/16 06:32 90 20 09/15/16 05:30 97.1 F L 90 20 115/70 100 09/15/16 05:16 97.6 F 09/15/16 04:56 88 20 101/60 98 09/15/16 04:51 86 20 113/63 98 09/15/16 04:46 86 20 102/58 99 09/15/16 04:41 88 20 101/55 98 09/15/16 04:36 86 20 106/58 98 09/15/16 04:26 92 20 109/61 99 09/15/16 04:21 86 20 103/55 96 09/15/16 04:16 88 20 93/52 97 09/15/16 04:11 88 20 103/55 98 09/15/16 04:06 94 20 101/56 92 L 09/15/16 03:46 90 16 103/58 97 09/15/16 03:41 92 16 105/53 96 09/15/16 03:36 90 16 106/59 97 09/15/16 03:31 92 16 103/57 97 09/15/16 03:26 92 18 105/58 97 09/15/16 03:21 94 18 105/62 97 09/15/16 03:16 92 20 104/62 98 09/15/16 03:11 92 20 105/63 99 09/15/16 03:06 94 20 97/66 98 09/15/16 02:56 96 20 101/60 99 09/15/16 02:51 98 20 103/58 99 09/15/16 02:46 98 20 107/63 98 06/20/17 02:41 99 22 103/61 98 09/15/16 02:35 101 H 20 95/60 98 09/15/16 02:30 102 H 32 H 86/59 98 09/15/16 02:25 102 H 25 H 83/53 98 09/15/16 02:21 102 H 28 H 79/52 98 09/15/16 02:16 89 40 H 81/50 95 09/15/16 02:11 94 40 H 90/64 95 09/15/16 02:06 118 H 40 H 135/78 94 L 09/15/16 02:01 121 H 40 H 138/75 94 L 09/15/16 01:56 130 H 46 H 156/87 94 L 09/15/16 01:55 134 H 48 H 176/96 94 L 09/15/16 01:51 97.1 F L 136 H 48 H 188/117 96 Intake and Output 09/14/16 09/15/16 09/15/16 22:59 06:59 14:59 Intake Total 0.25 Output Total 550 Balance 0.25 -550 Intake: Intake, IV Titration 0.25 Amount Nitroglycerin-D5w Pmx 50 0.25 mg In Dextrose/Water 1 250ml.bag @ 50 MCG/MIN 15 mls/hr IV .[id number] STA Rx#:[id number] Output: Urine 550 Other: Voiding Method Toilet # Voids 1 Weight 81.7 kg - Constitutional General appearance: no average body habitus, cooperative, disheveled, no mild distress, no morbidly obese, no acute distress, no obese, no severe distress, no thin - EENT Eyes: abnormal pupil, no anicteric sclerae, no disc margins sharp, no edentulous , no EOMI, no PERRLA, no fundus normal, no photophobia, no dentition normal, no poor dentition, no ptosis, no scleral icterus, normal appearance ENT: hard of hearing, no hearing grossly normal, no NA/AT, normal oropharynx, no other, no pharyngeal erythema, no thrush, no tonsillar exudates, no tonsillar swelling Ears: bilateral: normal - Neck Neck: no lymphadenopathy, normal ROM, no other, no rigidity, no stridor, no thyromegaly Carotids: bilateral: upstroke normal Thyroid: bilateral: normal size - Respiratory Respiratory: bilateral: diminished, dullness, rales, rhonchi, wheezing - Cardiovascular Rhythm: regular Heart sounds: normal: S1, S2 Abnormal Heart Sounds: systolic murmur, S3 Gallop - Gastrointestinal General gastrointestinal: no absent bowel sounds, decreased bowel sounds, no distended, no hepatomegaly, no hyperactive bowel sounds, normal bowel sounds, no organomegaly, no rigid, no scaphoid, soft, no splenomegaly, no tenderness, no umbilical hernia, no ventral hernia - Integumentary Integumentary: no calor, no cellulitis, no cyanotic, no decreased turgor, no flushed, no jaundiced, normal, no normal turgor, pale, rash, no ulcer - Neurologic Neurologic: CNII-XII intact - Musculoskeletal Musculoskeletal: no gait normal, generalized weakness, no strength equal bilaterally, no right sided weakness, no left sided weakness - Psychiatric Psychiatric: A&O x's 3, no appropriate affect, no intact judgment & insight Results CBC & Chem 7: 09/15/16 02:10 09/15/16 02:10 Labs: Abnormal Lab Results - Last 24 Hours (Table) 09/15/16 09/15/16 09/15/16 Range/Units 02:10 02:10 02:10 WBC 14.6 H (3.8-10.6) k/uL Neutrophils # 11.2 H (1.3-7.7) k/uL D-Dimer (<0.60) mg/L FEU Chloride 112 H (98-107) mmol/L Carbon Dioxide 16 L (22-30) mmol/L BUN 41 H (9-20) mg/dL Creatinine 1.80 H (0.66-1.25) mg/dL Glucose 166 H (74-99) mg/dL POC Glucose (mg/dL) (75-99) mg/dL AST 80 H (17-59) U/L ALT 119 H (21-72) U/L Total Creatine Kinase 310 H (55-170) U/L CK-MB (CK-2) 5.1 H* (0.0-2.4) ng/mL Troponin I 0.548 H* (0.000-0.034) ng/mL Urine Protein (Negative) Urine Bilirubin (Negative) Urine Bacteria (None) /hpf Hyaline Casts (0-2) /lpf Urine Mucus (None) /hpf 09/15/16 09/15/16 09/15/16 Range/Units 02:10 06:02 06:05 WBC (3.8-10.6) k/uL Neutrophils # (1.3-7.7) k/uL D-Dimer 1.19 H (<0.60) mg/L FEU Chloride (98-107) mmol/L Carbon Dioxide (22-30) mmol/L BUN (9-20) mg/dL Creatinine (0.66-1.25) mg/dL Glucose (74-99) mg/dL POC Glucose (mg/dL) 191 H (75-99) mg/dL AST (17-59) U/L ALT (21-72) U/L Total Creatine Kinase (55-170) U/L CK-MB (CK-2) (0.0-2.4) ng/mL Troponin I (0.000-0.034) ng/mL Urine Protein 2+ H (Negative) Urine Bilirubin 2+ H (Negative) Urine Bacteria Rare H (None) /hpf Hyaline Casts 8 H (0-2) /lpf Urine Mucus Rare H (None) /hpf 09/15/16 Range/Units 10:51 WBC (3.8-10.6) k/uL Neutrophils # (1.3-7.7) k/uL D-Dimer (<0.60) mg/L FEU Chloride (98-107) mmol/L Carbon Dioxide (22-30) mmol/L BUN (9-20) mg/dL Creatinine (0.66-1.25) mg/dL Glucose (74-99) mg/dL POC Glucose (mg/dL) (75-99) mg/dL AST (17-59) U/L ALT (21-72) U/L Total Creatine Kinase (55-170) U/L CK-MB (CK-2) 6.3 H* (0.0-2.4) ng/mL Troponin I 0.936 H* (0.000-0.034) ng/mL Urine Protein (Negative) Urine Bilirubin (Negative) Urine Bacteria (None) /hpf Hyaline Casts (0-2) /lpf Urine Mucus (None) /hpf Thrombosis Risk Factor Assmnt - DVT/VTE Prophylaxis DVT/VTE Prophylaxis: Pharmacologic Prophylaxis ordered, Mechanical Prophylaxis ordered - Choose All That Apply Each Risk Factor Represents 3 Points: History of DVT/PE Thrombosis Risk Factor Assessment Total Risk Factor Score: 3 Thrombosis Risk Factor Assessment Level: Moderate Risk Assessment and Plan Plan: 1 acute coronary syndrome: With mildly elevated troponin slight change in his EKG. Patient will be seen cardiology continue CK with troponin 3, continue patient conservative management and prepare for heart catheter as well. Echocardiogram was order and we will continue beta chandu and aspirin, antiplatelet agent, and add Nitrol. 2 acute pulmonary edema: Patient be continue on furosemide 40 mg IV every 8, continue Nitrol repeat chest x-ray echo and BNP in the next 24 hours. 3 severe dyspnea and shortness of breath acute on a chronic respiratory failure with advanced COPD: Continue patient on O2 continue updraft treatment and if needed will start patient on smaller dose of steroid. 4 chronic kidney disease stage III: Continue patient on mild hydration, consult nephrology continue current management for going for heart catheter I/O was creatinine with abdominal lower 1.5. 5 type 2 diabetes: Patient is on oral agent side insulin, continue Levemir on twice a day basis will continue Humalog 8-10 units before meals meals plus a sliding scales coverage. 6 COPD: Continue patient on O2, DuoNeb and Pulmicort. 7 hyperlipidemia: Remain on simvastatin 40 mg a day and TriCor 54 mg daily. 8 BPH: Continue to watch for any urinary retention. 9 chronic tobacco use and dependency: We will add nicotine patch 21 milligrams daily. 10 history of CVA: Still with slight residual. 11 hypertension: Patient has been on lisinopril 10 mg twice a day along with smaller doses of beta chandu. GI prophylaxis: Continue patient on pantoprazole 40 mg daily. DVT prophylaxis: Patient be on heparin 5000 units continues twice a day. CODE STATUS: Full code. Expectation from's admission: Patient in the hospital for more than 2 nights.
[2016-09-15] MEDS ORDERED: IODIXANOL 320 MG/ML 100 ML INTRAARTER ONE (13:03)
[2016-09-15] MEDS ORDERED: METOPROLOL TARTRATE 12.5 MG TAB PO ONE (13:05)
[2016-09-15] MEDS ORDERED: ASPIRIN 325 MG TAB PO ONE (13:08)
[2016-09-15 13:11] LABS: Cholesterol 173 mg/dL (<200); HDL Cholesterol 29 mg/dL (40-60); Triglycerides 356 mg/dL (<150)
[2016-09-15 13:21] LABS: Appearance,Urine Clear (Clear); Bilirubin,Urine 1+ (Negative); Glucose,Urine (UA) Negative (Negative); Ketones,Urine Negative (Negative); Leukocyte Esterase,Urine Negative (Negative); Nitrite,Urine Negative (Negative); Protein,Urine Trace (Negative); Specific Gravity,Urine 1.008 (1.001-1.035); UA Billing (MACRO vs. MICRO) CHEM; Urobilinogen,Urine <2.0 mg/dL (<2.0)
[2016-09-15 13:25] LABS: Hemoglobin A1C 7.3 % (4.2-6.1)
[2016-09-15] MEDS ORDERED: MIDAZOLAM 2 MG/2 ML VIAL IV ONE ×2 (13:39→13:41)
[2016-09-15 13:43] LABS: Hepatitis B Surface Ag Index 0.05
[2016-09-15 13:49] LABS: Hepatitis B Core IgM Index 0.02
--- NOTE | 2016-09-15 13:54 | P.GSCN ---
History of Present Illness Consult date: 09/15/16 Reason for Consult: Urgent consult for severe left main disease Requesting physician: Anup Cowan History of present illness: Patient is a 61's old gentleman with several comorbidities admitted with a picture of flash pulmonary edema and non-ST elevation myocardial infarction. 2- D echo showed moderate to severe left ventricular dysfunction which is a change compared to his previous echo in 2016 showing a normal left ventricular function. Urgent cardiac catheterization today showed more than 90% diffuse left main stenosis with moderate stenosis of the right coronary artery with some collaterals through the septals to the left system. Urgent cardiac breast surgical consult was placed. Patient had an intraoperative balloon pump inserted in view of his critical anatomy. Currently he is pain-free with EKG changes showing diffuse ST depression. Patient had a stroke in 2016 has a known occluded left carotid system. It took several months of rehabilitation to improve motor function of his right side of the body. He states that he walks with a limp at this point. He admits to dyspnea on exertion over the last several months. Review of Systems Negative except for the history of present illness Past Medical History Past Medical History: Chest Pain / Angina, COPD, CVA/TIA, Diabetes Mellitus, Hyperlipidemia, Hypertension, Osteoarthritis (OA), Renal Disease, Supraventricular Tachycardia (SVT), Syncope, Vascular Disorder Additional Past Medical History / Comment(s): BACK PAIN History of Any Multi-Drug Resistant Organisms: None Reported Past Surgical History: Appendectomy, Hernia Repair, Joint Replacement Additional Past Surgical History / Comment(s): RIGHT HIP REPLACEMENT Past Anesthesia/Blood Transfusion Reactions: No Reported Reaction Past Psychological History: No Psychological Hx Reported Smoking Status: Current every day smoker Additional Past Alcohol Use History / Comment(s): 3 cigarellos a day - Past Family History Father Family Medical History: Myocardial Infarction ([place]) Mother Family Medical History: Coronary Artery Disease (CAD) Daughter(s) Family Medical History: No Reported History Son(s) Family Medical History: No Reported History Medications and Allergies Home Medications Medication Instructions Recorded Confirmed Type Cholecalciferol [Vitamin D3] 1,000 unit PO DAILY@1200 10/07/13 09/15/16 History Fenofibrate Nanocrystallized 145 mg PO DAILY 10/07/13 09/15/16 History [Tricor] Lisinopril [Prinivil] 10 mg PO BID 10/07/13 09/15/16 History Magnesium 200 mg PO DAILY 10/07/13 09/15/16 History Melatonin 5 mg PO HS 10/07/13 09/15/16 History Simvastatin [Zocor] 40 mg PO HS 10/07/13 09/15/16 History Etodolac [Lodine] 300 mg PO BID 10/20/15 09/15/16 History Fluticasone Nasal [place] [Flonase 1 spray EA NOSTRIL DAILY PRN 10/20/15 09/15/16 History Nasal [place]] Insulin Aspart [NovoLOG] See Protocol SQ ACHS 09/15/16 09/15/16 History Insulin Detemir [Levemir] 40 units SQ AC-BRKFST 09/15/16 09/15/16 History Insulin Detemir [Levemir] 45 unit SQ HS 09/15/16 09/15/16 History Allergies Allergy/AdvReac Type Severity Reaction Status Date / Time No Known Allergies Allergy Verified 09/15/16 07:48 Surgical - Exam Vital Signs Temp Pulse Resp BP Pulse Ox 97.1 F L 134 H 48 H 212/122 95 09/15/16 01:51 09/15/16 01:51 09/15/16 01:51 09/15/16 01:51 09/15/16 01:51 - General no distress - Respiratory normal expansion - Cardiovascular Rhythm: regular Heart Sounds: normal: S1, S2 - Abdomen Abdomen: distended - Genitourinary Deferred - Rectum Deferred - Neurologic Unable to complete a full motor exam however patient has 4 over 5 motor strength in his right body and normal cord urination. Results - Labs 09/15/16 02:10 09/15/16 02:10 Abnormal Lab Results - Last 24 Hours (Table) 09/15/16 09/15/16 09/15/16 Range/Units 02:10 02:10 02:10 WBC 14.6 H (3.8-10.6) k/uL Neutrophils # 11.2 H (1.3-7.7) k/uL D-Dimer (<0.60) mg/L FEU Chloride 112 H (98-107) mmol/L Carbon Dioxide 16 L (22-30) mmol/L BUN 41 H (9-20) mg/dL Creatinine 1.80 H (0.66-1.25) mg/dL Glucose 166 H (74-99) mg/dL POC Glucose (mg/dL) (75-99) mg/dL AST 80 H (17-59) U/L ALT 119 H (21-72) U/L Total Creatine Kinase 310 H (55-170) U/L CK-MB (CK-2) 5.1 H* (0.0-2.4) ng/mL Troponin I 0.548 H* (0.000-0.034) ng/mL Urine Protein (Negative) Urine Bilirubin (Negative) Urine Bacteria (None) /hpf Hyaline Casts (0-2) /lpf Urine Mucus (None) /hpf 09/15/16 09/15/16 09/15/16 Range/Units 02:10 06:02 06:05 WBC (3.8-10.6) k/uL Neutrophils # (1.3-7.7) k/uL D-Dimer 1.19 H (<0.60) mg/L FEU Chloride (98-107) mmol/L Carbon Dioxide (22-30) mmol/L BUN (9-20) mg/dL Creatinine (0.66-1.25) mg/dL Glucose (74-99) mg/dL POC Glucose (mg/dL) 191 H (75-99) mg/dL AST (17-59) U/L ALT (21-72) U/L Total Creatine Kinase (55-170) U/L CK-MB (CK-2) (0.0-2.4) ng/mL Troponin I (0.000-0.034) ng/mL Urine Protein 2+ H (Negative) Urine Bilirubin 2+ H (Negative) Urine Bacteria Rare H (None) /hpf Hyaline Casts 8 H (0-2) /lpf Urine Mucus Rare H (None) /hpf 09/15/16 09/15/16 Range/Units 10:51 13:00 WBC (3.8-10.6) k/uL Neutrophils # (1.3-7.7) k/uL D-Dimer (<0.60) mg/L FEU Chloride (98-107) mmol/L Carbon Dioxide (22-30) mmol/L BUN (9-20) mg/dL Creatinine (0.66-1.25) mg/dL Glucose (74-99) mg/dL POC Glucose (mg/dL) (75-99) mg/dL AST (17-59) U/L ALT (21-72) U/L Total Creatine Kinase (55-170) U/L CK-MB (CK-2) 6.3 H* (0.0-2.4) ng/mL Troponin I 0.936 H* (0.000-0.034) ng/mL Urine Protein Trace H (Negative) Urine Bilirubin 1+ H (Negative) Urine Bacteria (None) /hpf Hyaline Casts (0-2) /lpf Urine Mucus (None) /hpf Diabetes panel 09/15/16 Range/Units 02:10 Sodium 140 (137-145) mmol/L Potassium 4.6 (3.5-5.1) mmol/L Chloride 112 H (98-107) mmol/L Carbon Dioxide 16 L (22-30) mmol/L BUN 41 H (9-20) mg/dL Creatinine 1.80 H (0.66-1.25) mg/dL Glucose 166 H (74-99) mg/dL Calcium 9.3 (8.4-10.2) mg/dL AST 80 H (17-59) U/L ALT 119 H (21-72) U/L Alkaline Phosphatase 91 (38-126) U/L Total Protein 6.8 (6.3-8.2) g/dL Albumin 4.1 (3.5-5.0) g/dL Calcium panel 09/15/16 Range/Units 02:10 Calcium 9.3 (8.4-10.2) mg/dL Albumin 4.1 (3.5-5.0) g/dL Pituitary panel 09/15/16 Range/Units 02:10 Sodium 140 (137-145) mmol/L Potassium 4.6 (3.5-5.1) mmol/L Chloride 112 H (98-107) mmol/L Carbon Dioxide 16 L (22-30) mmol/L BUN 41 H (9-20) mg/dL Creatinine 1.80 H (0.66-1.25) mg/dL Glucose 166 H (74-99) mg/dL Calcium 9.3 (8.4-10.2) mg/dL Adrenal panel 09/15/16 Range/Units 02:10 Sodium 140 (137-145) mmol/L Potassium 4.6 (3.5-5.1) mmol/L Chloride 112 H (98-107) mmol/L Carbon Dioxide 16 L (22-30) mmol/L BUN 41 H (9-20) mg/dL Creatinine 1.80 H (0.66-1.25) mg/dL Glucose 166 H (74-99) mg/dL Calcium 9.3 (8.4-10.2) mg/dL Total Bilirubin 0.5 (0.2-1.3) mg/dL AST 80 H (17-59) U/L ALT 119 H (21-72) U/L Alkaline Phosphatase 91 (38-126) U/L Total Protein 6.8 (6.3-8.2) g/dL Albumin 4.1 (3.5-5.0) g/dL - Imaging EKG: report reviewed, image reviewed Additional studies: 2-D echo shows reportedly an EF of 30% with no significant valvular abnormality Cardiac catheterization shows severe left main disease with moderate right coronary artery stenosis. Intervertebral pump is in good position Assessment and Plan Plan: 61's old gentleman with several comorbidities including and not limited to previous CVA (documented [place] infar[place] 02022) known occluded left carotid system , CKD stage III, chronic plavix intake , with presently severe critical left main disease presenting as flash pulmonary edema, moderate to severe LV dysfunction, warranting emergent coronary artery bypass grafting. Patient evidently at high risk of mortality, stroke, dialysis, bleeding etc .... This has been discussed with him and his over the phone. He seemed to understood them and agreed to proceed. Thank you Dr. Cowan for the privilege of this consult
[2016-09-15 14:00] LABS: Hepatitis C Virus IgG Ab Negative (Negative); Hepatitis C Virus IgG Index 0.04
[2016-09-15] MEDS ORDERED: MUPIROCIN 2% OINT 22 GM TUBE TOPICAL SCH (14:00)
[2016-09-15] MEDS ORDERED: ALBUMIN HUMAN 5% 500 ML VIAL IVPB ONE (14:23)
[2016-09-15] MEDS ORDERED: SODIUM BICARB 8.4% 50 ML SYR (1 MEQ/ML) ONE (14:23)
[2016-09-15] MEDS ORDERED: HEPARIN SODIUM,PORCINE 10,000 UNIT/ML 1 ML VIAL ONE (14:23)
[2016-09-15] MEDS ORDERED: ePHEDrine 50 MG/ML 1 ML AMP ONE (14:23)
[2016-09-15] MEDS ORDERED: SUCCINYLCHOLINE CHLORIDE 100 MG/5 ML SYR IV ONE (14:23)
[2016-09-15] MEDS ORDERED: VECURONIUM 10 MG VIAL IV ONE (14:23)
[2016-09-15] MEDS ORDERED: MIDAZOLAM 2 MG/2 ML VIAL ONE (14:23)
[2016-09-15] MEDS ORDERED: ETOMIDATE 2 MG/ML 10 ML VIAL ONE (14:23)
[2016-09-15] MEDS ORDERED: fentaNYL (PF) 50 MCG/ML 50 ML VIAL ONE (14:23)
[2016-09-15] MEDS ORDERED: PROTAMINE SULFATE 10 MG/ML 5 ML VIAL IV ONE (14:23)
[2016-09-15] MEDS ORDERED: PHENYLEPHRINE-0.9% NACL SYG 1 MG/10 ML SYRINGE ONE (14:23)
[2016-09-15] MEDS ORDERED: HEPARIN SODIUM 1,000 UN/ML (10ML VL) ONE (14:23)
[2016-09-15] MEDS ORDERED: LIDOCAINE 2% SYG (PF) 100 MG/5 ML ONE (14:23)
[2016-09-15 15:14] LABS: Glucose,Whole Blood 142 mg/dL (75-99)
[2016-09-15 17:12] LABS: Glucose,Whole Blood 145 mg/dL (75-99)
--- NOTE | 2016-09-15 17:44 | P.CNPUL ---
History of Present Illness Consult date: 09/15/16 Chief complaint: Shortness of breath History of present illness: 61-year-old male with past medical history of CVA, PAD, CAD, COPD, chronic smoking, diabetes, chronic neuropathy and stage III kidney disease who was the hospital last in September 2015 for CVA. The patient presented to the ER complaining of sudden onset shortness of breath that awoke him from sleep. The chest x-ray showed sign of pulmonary edema. EKGs shows slight T waves inversion second EKG had mild change as well and his troponin continued to be mildly elevated. Patient was diagnosed with acute pulmonary edema secondary to congestive heart failure. The patient was taken to the cardiac catheter lab and found to have left main disease. The patient was subsequently put on a balloon pump. The patient is seen and examined in the recovery unit. The patient is currently being prepped for a CABG this evening. Further history is difficult to obtain at this time. Review of Systems All systems: negative Past Medical History Past Medical History: Chest Pain / Angina, COPD, CVA/TIA, Diabetes Mellitus, Hyperlipidemia, Hypertension, Osteoarthritis (OA), Renal Disease, Supraventricular Tachycardia (SVT), Syncope, Vascular Disorder Additional Past Medical History / Comment(s): BACK PAIN History of Any Multi-Drug Resistant Organisms: None Reported Past Surgical History: Appendectomy, Hernia Repair, Joint Replacement Additional Past Surgical History / Comment(s): RIGHT HIP REPLACEMENT Past Anesthesia/Blood Transfusion Reactions: No Reported Reaction Past Psychological History: No Psychological Hx Reported Smoking Status: Current every day smoker Additional Past Alcohol Use History / Comment(s): 3 cigarellos a day - Past Family History Father Family Medical History: Myocardial Infarction ([place]) Mother Family Medical History: Coronary Artery Disease (CAD) Daughter(s) Family Medical History: No Reported History Son(s) Family Medical History: No Reported History Medications and Allergies Home Medications Medication Instructions Recorded Confirmed Type Cholecalciferol [Vitamin D3] 1,000 unit PO DAILY@1200 10/07/13 09/15/16 History Fenofibrate Nanocrystallized 145 mg PO DAILY 10/07/13 09/15/16 History [Tricor] Lisinopril [Prinivil] 10 mg PO BID 10/07/13 09/15/16 History Magnesium 200 mg PO DAILY 10/07/13 09/15/16 History Melatonin 5 mg PO HS 10/07/13 09/15/16 History Simvastatin [Zocor] 40 mg PO HS 10/07/13 09/15/16 History Etodolac [Lodine] 300 mg PO BID 10/20/15 09/15/16 History Fluticasone Nasal [place] [Flonase 1 spray EA NOSTRIL DAILY PRN 10/20/15 09/15/16 History Nasal [place]] Insulin Aspart [NovoLOG] See Protocol SQ ACHS 09/15/16 09/15/16 History Insulin Detemir [Levemir] 40 units SQ AC-BRKFST 09/15/16 09/15/16 History Insulin Detemir [Levemir] 45 unit SQ HS 09/15/16 09/15/16 History Allergies Allergy/AdvReac Type Severity Reaction Status Date / Time No Known Allergies Allergy Verified 09/15/16 07:48 Physical Exam Osteopathic Statement: *. No significant issues noted on an osteopathic structural exam other than those noted in the History and Physical/Consult. Vitals: Vital Signs Temp Pulse Pulse Resp BP BP Pulse Ox 09/15/16 11:26 97.6 F 88 20 110/64 96 09/15/16 08:00 97.6 F 88 20 110/64 96 09/15/16 06:32 90 20 09/15/16 05:30 97.1 F L 90 20 115/70 100 09/15/16 05:16 97.6 F 09/15/16 04:56 88 20 101/60 98 09/15/16 04:51 86 20 113/63 98 09/15/16 04:46 86 20 102/58 99 09/15/16 04:41 88 20 101/55 98 09/15/16 04:36 86 20 106/58 98 09/15/16 04:26 92 20 109/61 99 09/15/16 04:21 86 20 103/55 96 09/15/16 04:16 88 20 93/52 97 09/15/16 04:11 88 20 103/55 98 09/15/16 04:06 94 20 101/56 92 L 09/15/16 03:46 90 16 103/58 97 09/15/16 03:41 92 16 105/53 96 09/15/16 03:36 90 16 106/59 97 09/15/16 03:31 92 16 103/57 97 09/15/16 03:26 92 18 105/58 97 09/15/16 03:21 94 18 105/62 97 09/15/16 03:16 92 20 104/62 98 09/15/16 03:11 92 20 105/63 99 09/15/16 03:06 94 20 97/66 98 09/15/16 02:56 96 20 101/60 99 09/15/16 02:51 98 20 103/58 99 09/15/16 02:46 98 20 107/63 98 09/15/16 02:41 99 22 103/61 98 09/15/16 02:35 101 H 20 95/60 98 09/15/16 02:30 102 H 32 H 86/59 98 09/15/16 02:25 102 H 25 H 83/53 98 09/15/16 02:21 102 H 28 H 79/52 98 09/15/16 02:16 89 40 H 81/50 95 09/15/16 02:11 94 40 H 90/64 95 09/15/16 02:06 118 H 40 H 135/78 94 L 09/15/16 02:01 121 H 40 H 138/75 94 L 09/15/16 01:56 130 H 46 H 156/87 94 L 09/15/16 01:55 134 H 48 H 176/96 94 L 09/15/16 01:51 97.1 F L 136 H 48 H 188/117 96 Intake and Output 09/15/16 09/15/16 09/15/16 06:59 14:59 22:59 Intake Total 0.25 450 Output Total 550 Balance 0.25 -100 Intake: IV 450 Intake, IV Titration 0.25 Amount Nitroglycerin-D5w Pmx 50 0.25 mg In Dextrose/Water 1 250ml.bag @ 50 MCG/MIN 15 mls/hr IV .[id number] STA Rx#:[id number] Output: Urine 550 Other: Voiding Method Toilet # Voids 1 Weight 81.7 kg Gen.: Patient is alert and oriented 3, he appears to be emotionally upset and tearful Cardiovascular: Regular rate and rhythm, S1/S2 Lungs: Diminished at the bases otherwise clear Abdomen: Soft nontender nondistended positive bowel sounds Extremities: + Edema Results - Laboratory Findings CBC and BMP: 09/15/16 02:10 09/15/16 02:10 PT/INR, D-dimer PT 10.8 sec (9.0-12.0) 09/15/16 02:10 INR 1.1 (<1.1) 09/15/16 02:10 D-Dimer 1.19 mg/L FEU (<0.60) H 09/15/16 02:10 Abnormal lab findings: Abnormal Labs 09/15/16 09/15/16 09/15/16 02:10 02:10 02:10 WBC 14.6 H Neutrophils # 11.2 H D-Dimer Chloride 112 H Carbon Dioxide 16 L BUN 41 H Creatinine 1.80 H Glucose 166 H POC Glucose (mg/dL) Hemoglobin A1c AST 80 H ALT 119 H Total Creatine Kinase 310 H CK-MB (CK-2) 5.1 H* Troponin I 0.548 H* Triglycerides HDL Cholesterol TSH Urine Protein Urine Bilirubin Urine Bacteria Hyaline Casts Urine Mucus Crossmatch 09/15/16 09/15/16 09/15/16 02:10 06:02 06:05 WBC Neutrophils # D-Dimer 1.19 H Chloride Carbon Dioxide BUN Creatinine Glucose POC Glucose (mg/dL) 191 H Hemoglobin A1c AST ALT Total Creatine Kinase CK-MB (CK-2) Troponin I Triglycerides HDL Cholesterol TSH Urine Protein 2+ H Urine Bilirubin 2+ H Urine Bacteria Rare H Hyaline Casts 8 H Urine Mucus Rare H Crossmatch 09/15/16 09/15/16 09/15/16 10:51 12:45 12:45 WBC Neutrophils # D-Dimer Chloride Carbon Dioxide BUN Creatinine Glucose POC Glucose (mg/dL) Hemoglobin A1c 7.3 H AST ALT Total Creatine Kinase CK-MB (CK-2) 6.3 H* Troponin I 0.936 H* Triglycerides 356 H HDL Cholesterol 29 L TSH 0.383 L Urine Protein Urine Bilirubin Urine Bacteria Hyaline Casts Urine Mucus Crossmatch 09/15/16 09/15/16 09/15/16 12:45 13:00 15:02 WBC Neutrophils # D-Dimer Chloride Carbon Dioxide BUN Creatinine Glucose POC Glucose (mg/dL) 142 H Hemoglobin A1c AST ALT Total Creatine Kinase CK-MB (CK-2) Troponin I Triglycerides HDL Cholesterol TSH Urine Protein Trace H Urine Bilirubin 1+ H Urine Bacteria Hyaline Casts Urine Mucus Crossmatch See Detail 06/20/17 17:08 WBC Neutrophils # D-Dimer Chloride Carbon Dioxide BUN Creatinine Glucose POC Glucose (mg/dL) 145 H Hemoglobin A1c AST ALT Total Creatine Kinase CK-MB (CK-2) Troponin I Triglycerides HDL Cholesterol TSH Urine Protein Urine Bilirubin Urine Bacteria Hyaline Casts Urine Mucus Crossmatch - Diagnostic Findings Chest x-ray: report reviewed, image reviewed Assessment and Plan Plan: Acute hypoxic respiratory failure Acute exacerbation of CHF, systolic, ejection fraction 30% Pulmonary edema Acute coronary syndrome Coronary artery disease Need for CABG History of CVA History of peripheral arterial disease Active tobacco abuse COPD Peripheral neuropathy CK D3 Diabetes mellitus type 2 BPH Hypertension Dyslipidemia O2 to maintain saturation greater than or equal to 88% Plan for CABG tonight per cardiothoracic surgery Vent management post surgery Pulmicort and DuoNeb's Cardiology recommendations Monitor renal function and urine output Hemodynamics per cardiothoracic surgery Smoking cessation is highly recommended GI and DVT prophylaxis Thank you for this consultation we'll continue to follow along
[2016-09-15 18:23] LABS: Glucose,Whole Blood 163 mg/dL (75-99)
[2016-09-15 19:03] LABS: Glucose,Whole Blood 351 mg/dL (75-99)
[2016-09-15 19:18] LABS: Glucose,Whole Blood 342 mg/dL (75-99)
[2016-09-15] MEDS ORDERED: ALBUMIN HUMAN 5% 250 ML IVPB ONE (19:26)
[2016-09-15 19:51] LABS: Glucose,Whole Blood 325 mg/dL (75-99)
[2016-09-15 20:18] LABS: Glucose,Whole Blood 296 mg/dL (75-99)
[2016-09-15 20:56] LABS: Glucose,Whole Blood 254 mg/dL (75-99)
[2016-09-15] MEDS ORDERED: ATORVASTATIN 20 MG TAB PO SCH (21:00)
[2016-09-15] MEDS ORDERED: SODIUM BICARBONATE TAB 650 MG TAB PO SCH (21:00)
[2016-09-15] MEDS ORDERED: MELATONIN 5 MG TABLET PO SCH (21:00)
[2016-09-15 21:27] LABS: Glucose,Whole Blood 193 mg/dL (75-99)
[2016-09-15] MEDS: NITROGLYCERIN-D5W PMX 50 MG in DEXTROSE/WATER 1 250ML.BAG IV ONE (22:00)
[2016-09-15] MEDS ORDERED: PROPOFOL 50 ML IV ONE (22:16)
[2016-09-15] MEDS ORDERED: METOCLOPRAMIDE 5 MG/ML 2 ML VIAL IVP PRN (22:18)
[2016-09-15] MEDS ORDERED: Magnesium Replacement Protocol 1 EACH MISC MISCELLANE PRN (22:18)
[2016-09-15] MEDS ORDERED: ONDANSETRON 4 MG/2 ML VIAL IVP PRN (22:18)
[2016-09-15] MEDS ORDERED: PROPOFOL 500 MG in EMPTY BAG 1 BAG IV SCH (22:18)
[2016-09-15] MEDS ORDERED: LACTATED RINGERS 1,000 ML IV SCH (22:18)
[2016-09-15] MEDS ORDERED: Potassium Replacement Protocol 1 EACH MISC MISCELLANE PRN (22:18)
[2016-09-15] MEDS ORDERED: BENZOCAINE/MENTHOL LOZENG 1 EACH LOZENGE MUCOUS MEM PRN (22:18)
[2016-09-15] MEDS ORDERED: CALCIUM GLUCONATE 2,000 MG in SODIUM CHLORIDE 0.9% 100 ML IVPB PRN (22:18)
[2016-09-15] MEDS ORDERED: Phosphorus Replacement Protoco 1 EACH MISC MISCELLANE PRN (22:18)
[2016-09-15 22:30] LABS: Glucose,Whole Blood 129 mg/dL (75-99)
[2016-09-15 22:43] LABS: Basophils % (A) 0 %; CH 29.2; Eosinophils % (A) 0 %; HCT 26.2 % (39.0-53.0); Luc # (Auto) 0.06; Luc % (Auto) 1; Lymphocytes # (A) 1.2 k/uL (1.0-4.8); Lymphocytes % (A) 9 %; MCH 29.2 pg (25.0-35.0); MCHC 32.7 g/dL (31.0-37.0); MCV 89.4 fL (80.0-100.0); Mean Platelet Volume 8.6; Monocytes # (A) 0.4 k/uL (0-1.0); Monocytes % (A) 3 %; Neutrophils # (A) 11.5 k/uL (1.3-7.7); Neutrophils % (A) 87 %; RBC 2.93 m/uL (4.30-5.90); RDW 14.1 % (11.5-15.5); WBC 13.2 k/uL (3.8-10.6); WBC (Perox) 13.06
[2016-09-15 22:50] LABS: INR 1.4 (<1.1); Partial Thromboplastin Time 32.3 sec (22.0-30.0); Prothrombin Time 13.3 sec (9.0-12.0)
[2016-09-15 22:52] LABS: HGB 8.6 gm/dL (13.0-17.5)
[2016-09-15] MEDS: IPRATROPIUM-ALBUTEROL 3 ML NEB INHALATION SCH ×2 (22:53→23:17)
--- NOTE | 2016-09-15 22:57 | XR ---
INDICATION: Post open heart COMPARISON: CXR 09/15/16 at 02:50 FINDINGS: Single frontal view of the chest is provided. Status post cardiac surgery with median sternotomy wires and mediastinal surgical clips. Endotracheal tube terminates 2.8 cm above the jun. Right internal jugular venous approach [place] catheter extends to the proximal main pulmonary artery. Endogastric tube extends to the stomach. There are 2 mediastinal drains and a left-sided chest tube. Mildly enlarged cardiac silhouette with pulmonary vascular congestion. Lung volumes are mildly decreased. No significant pleural effusion is evident. There is no pneumothorax. Regional skeleton appears intact. IMPRESSION: 1. Postoperative appearance of the chest with appropriately positioned support lines and tubes.
[2016-09-15 23:02] LABS: Glucose,Whole Blood 109 mg/dL (75-99)
[2016-09-15 23:05] LABS: Ionized Calcium 4.6 mg/dL (4.5-5.3)
[2016-09-15 23:11] LABS: ABG Base Excess -1.1 mmol/L; ABG HCO3 23 mmol/L (21-25); ABG PCO2 37 mmHg (35-45); ABG PH 7.41 (7.35-7.45); ABG PO2 88 mmHg (83-108); ABG TCO2 24 mmol/L (19-24)
[2016-09-15 23:12] LABS: Calcium 7.5 mg/dL (8.4-10.2); Magnesium 2.9 mg/dL (1.6-2.3); Potassium 3.5 mmol/L (3.5-5.1); Total Bilirubin 0.7 mg/dL (0.2-1.3); Total Protein 4.8 g/dL (6.3-8.2)
--- NOTE | 2016-09-15 23:12 | CC ---
DATE OF SERVICE: Mr. Cerna is a 60-year-old male with known history of hypertension, hyperlipidemia, diabetes mellitus, history of cerebrovascular accident, chronic tobacco use, who presented with significant dyspnea on exertion with ST-segment changes with some mild elevation in leads aVR and ST depression across the precordial leads. His troponin was minimally elevated and his creatinine on presentation was 1.8. Patient has a known history of chronic kidney disease. In view of his presentation and the possibility of left main disease, recommendation was made regarding cardiac catheterization, understanding that this is higher risk than average. The procedure as well as risks and complications were discussed with the patient, who was in full understanding and agreement. PROCEDURE: Patient was brought to the label drier in a fasting semi-sedated state after receiving fentanyl and Benadryl and achieving moderate conscious sedated state. Using Xylocaine anesthesia and Seldinger technique, a 6 [place] sheath were introduced in the right radial artery. Selective right and left coronary angiography was performed using 5 [place] 3-1/2 Bend right and left Ingrid catheters. Multiple views were taken of the arteries, including hemiaxial views. Following that, using Xylocaine anesthesia and Seldinger technique, a 6 [place] sheath was introduced in the right femoral artery. Subsequently in intervals the balloon pump was introduced, positioned and secured in place. After that, the sheath in the right radial artery was removed, and hemostasis was obtained with deployment of a TR band. There was no complication. Patient was hemodynamically stable and pain-free at the end of procedure. He received 4000 units of intravenous heparin as well as intra-arterial Verapamil. FINDINGS FLUOROSCOPY: There is calcification involving the left main and the proximal LAD. LEFT MAIN: This vessel has a 99% stenosis at the bifurcation. LEFT ANTERIOR DESCENDING ARTERY: This vessel is large in caliber giving rise to a diagonal branch of small caliber. The left anterior descending artery in the proximal segment has about a 50% plaque. The rest of the vessel has no high-grade stenosis. LEFT CIRCUMFLEX: This is a non-dominant vessel that gives rise to 3 obtuse marginal branches. The first one has about a 60% to 70% stenosis. The second one has an 80% stenosis. The vessel is diffusely diseased proximally. RIGHT CORONARY ARTERY: This vessel is a dominant vessel, large in caliber, bifurcating into PDA, posterolateral segment and branches. The right coronary artery in mid segment has about a 60% to 70% plaque. The rest of the vessel has no high-grade stenosis. COLLATERALS: There is collateral from the right coronary artery toward the LAD. CONCLUSION: 1. Critical left main disease. 2. Moderate to significant disease in the mid right coronary artery. 3. calcified coronary arteries. RECOMMENDATIONS: I have recommended proceeding with emergent coronary artery bypass grafting. Those findings were discussed with Dr. Whatley, who evaluated the patient in the cardiac catheterization laboratory. SWAPNIL
--- NOTE | 2016-09-15 23:15 | LTR ---
September 15, 2016 RE: ErynChema Dear Dr. Hidalgo, I had the pleasure of performing cardiac catheterization on Mr. Cerna at [facility] on September 15, and a full copy of the procedure note will be forwarded to you. He was found to have significant distal left main disease. Based on those findings, I have recommended proceeding with emergent coronary artery bypass grafting. I will keep you updated on his progress. Thank you again for allowing me to participate in this patient's care. Please feel free to call with any questions. Sincerely, SERENE RAWLS MD
[2016-09-15 23:34] LABS: ABG Base Excess -0.3 mmol/L; ABG HCO3 24 mmol/L (21-25); ABG PCO2 39 mmHg (35-45); ABG PH 7.41 (7.35-7.45); ABG PO2 157 mmHg (83-108); ABG TCO2 25 mmol/L (19-24)
[2016-09-16 00:03] LABS: Glucose,Whole Blood 85 mg/dL (75-99)
[2016-09-16] MEDS: POTASSIUM CHLORIDE ORAL LIQUID 40 MEQ/30 ML CUP NG-TUBE SCH ×2 (00:10→01:00)
[2016-09-16] MEDS: NITROGLYCERIN-D5W PMX 50 MG in DEXTROSE/WATER 1 250ML.BAG IV ONE (00:22)
[2016-09-16] MEDS: ACETAMINOPHEN IV (For NPO) 1,000 MG in EMPTY BAG 1 BAG IVPB SCH ×5 (00:23→17:56)
[2016-09-16] MEDS: CLEVIDIPINE BUTYRATE 25 MG in EMPTY BAG 1 BAG IV SCH ×2 (00:24→22:59)
[2016-09-16] MEDS: MUPIROCIN 2% OINT 22 GM TUBE NASAL SCH ×3 (00:25→21:55)
[2016-09-16] MEDS: ceFAZolin 2 GM in SODIUM CHLORIDE 0.9% 100 ML IVPB SCH ×3 (00:26→15:28)
[2016-09-16] MEDS: HEPARIN SODIUM,PORCINE 5,000 UNIT/ML 1 ML VIAL SQ SCH ×4 (00:39→22:56)
[2016-09-16 00:59] LABS: Glucose,Whole Blood 121 mg/dL (75-99)
[2016-09-16] MEDS: INSULIN REGULAR 100 UNIT in SODIUM CHLORIDE 0.9% 100 ML IV SCH (01:00)
[2016-09-16] MEDS: MORPHINE SULFATE 2 MG/ML SYRINGE IVP PRN ×3 (02:00→22:08)
[2016-09-16 02:08] LABS: Glucose,Whole Blood 154 mg/dL (75-99)
[2016-09-16 03:06] LABS: Glucose,Whole Blood 194 mg/dL (75-99)
[2016-09-16] MEDS: IPRATROPIUM-ALBUTEROL 3 ML NEB INHALATION SCH ×5 (03:13→19:56)
[2016-09-16] MEDS: DEXMEDETOMIDINE IN 0.9 % NACL 400 MCG in EMPTY BAG 1 BAG IV SCH ×3 (03:19→14:43)
[2016-09-16 04:02] LABS: Glucose,Whole Blood 200 mg/dL (75-99)
[2016-09-16 04:21] LABS: Basophils % (A) 0 %; CHCM 31.7; Eosinophils % (A) 0 %; HCT 27.3 % (39.0-53.0); HDW 2.89; HGB 8.4 gm/dL (13.0-17.5); Hypochromasia Slight; Luc # (Auto) 0.07; Luc % (Auto) 1; Lymphocytes # (A) 0.6 k/uL (1.0-4.8); Lymphocytes % (A) 4 %; MCH 28.6 pg (25.0-35.0); MCV 92.2 fL (80.0-100.0); Mean Platelet Volume 8.3; Monocytes # (A) 0.6 k/uL (0-1.0); Monocytes % (A) 4 %; Neutrophils # (A) 13.3 k/uL (1.3-7.7); Neutrophils % (A) 91 %; RBC 2.96 m/uL (4.30-5.90); RDW 14.3 % (11.5-15.5); WBC 14.6 k/uL (3.8-10.6); WBC (Perox) 13.59
[2016-09-16] MEDS ORDERED: ASPIRIN 325 MG TAB PO SCH (04:46)
[2016-09-16 05:02] LABS: ABG Base Excess -5.5 mmol/L; ABG HCO3 19 mmol/L (21-25); ABG Oxygen Saturation 96.4 % (94-97); ABG PCO2 35 mmHg (35-45); ABG PH 7.35 (7.35-7.45); ABG PO2 88 mmHg (83-108); ABG TCO2 20 mmol/L (19-24)
[2016-09-16 05:03] LABS: ABG Base Excess -7.6 mmol/L; ABG HCO3 19 mmol/L (21-25); ABG Oxygen Saturation 98.5 % (94-97); ABG PCO2 46 mmHg (35-45); ABG PH 7.25 (7.35-7.45); ABG PO2 133 mmHg (83-108); ABG TCO2 21 mmol/L (19-24)
[2016-09-16 05:04] LABS: ABG Base Excess -1.8 mmol/L; ABG HCO3 22 mmol/L (21-25); ABG PCO2 38 mmHg (35-45); ABG PH 7.39 (7.35-7.45); ABG PO2 >420 mmHg (83-108); ABG TCO2 24 mmol/L (19-24)
[2016-09-16 05:05] LABS: Ionized Calcium 4.8 mg/dL (4.5-5.3)
[2016-09-16 05:05] LABS: ABG Base Excess -3.8 mmol/L; ABG HCO3 23 mmol/L (21-25); ABG Oxygen Saturation 99.8 % (94-97); ABG PCO2 51 mmHg (35-45); ABG PH 7.27 (7.35-7.45); ABG PO2 274 mmHg (83-108); ABG TCO2 24 mmol/L (19-24)
[2016-09-16 05:06] LABS: ABG Base Excess -4.7 mmol/L; ABG HCO3 21 mmol/L (21-25); ABG Oxygen Saturation 99.9 % (94-97); ABG PCO2 44 mmHg (35-45); ABG PO2 326 mmHg (83-108); ABG TCO2 22 mmol/L (19-24)
[2016-09-16 05:07] LABS: Glucose,Whole Blood 189 mg/dL (75-99)
[2016-09-16 05:08] LABS: ABG Base Excess -2.8 mmol/L; ABG HCO3 22 mmol/L (21-25); ABG Oxygen Saturation 99.9 % (94-97); ABG PCO2 42 mmHg (35-45); ABG PH 7.34 (7.35-7.45); ABG PO2 314 mmHg (83-108); ABG TCO2 24 mmol/L (19-24)
[2016-09-16 05:10] LABS: ABG HCO3 20 mmol/L (21-25); ABG PCO2 44 mmHg (35-45); ABG PH 7.28 (7.35-7.45); ABG PO2 290 mmHg (83-108); ABG TCO2 21 mmol/L (19-24)
[2016-09-16 05:11] LABS: ABG Oxygen Saturation 99.9 % (94-97)
[2016-09-16 05:11] LABS: ABG Base Excess -2.8 mmol/L; ABG HCO3 23 mmol/L (21-25); ABG Oxygen Saturation 97.2 % (94-97); ABG PCO2 44 mmHg (35-45); ABG PH 7.33 (7.35-7.45); ABG PO2 100 mmHg (83-108); ABG TCO2 24 mmol/L (19-24)
[2016-09-16 05:12] LABS: ABG Base Excess -2.8 mmol/L; ABG HCO3 22 mmol/L (21-25); ABG Oxygen Saturation 95.6 % (94-97); ABG PCO2 40 mmHg (35-45); ABG PH 7.35 (7.35-7.45); ABG PO2 83 mmHg (83-108); ABG TCO2 23 mmol/L (19-24)
[2016-09-16 05:34] LABS: Calcium 7.9 mg/dL (8.4-10.2); Magnesium 2.6 mg/dL (1.6-2.3); Potassium 5.2 mmol/L (3.5-5.1); Total Bilirubin 0.4 mg/dL (0.2-1.3); Total Protein 4.5 g/dL (6.3-8.2)
[2016-09-16 05:48] LABS: ABG Base Excess -1.6 mmol/L; ABG HCO3 22 mmol/L (21-25); ABG PCO2 30 mmHg (35-45); ABG PH 7.47 (7.35-7.45); ABG PO2 82 mmHg (83-108); ABG TCO2 23 mmol/L (19-24)
[2016-09-16 06:01] LABS: Glucose,Whole Blood 166 mg/dL (75-99)
[2016-09-16] MEDS: MILRINONE-D5W PMX 20 MG in DEXTROSE/WATER 1 100ML.BAG IV SCH ×2 (06:12→14:07)
[2016-09-16] MEDS ORDERED: NOREPINEPHRIN 16 MG-0.9%NS PMX 16 MG/250 ML ML IV SCH (06:15)
[2016-09-16] MEDS: ALBUMIN HUMAN 5% 250 ML in EMPTY BAG 1 BAG IVPB PRN ×3 (07:00→14:40)
[2016-09-16 07:10] LABS: Glucose,Whole Blood 164 mg/dL (75-99)
--- NOTE | 2016-09-16 07:53 | XR ---
EXAMINATION TYPE: XR chest 1V portable DATE OF EXAM: 09/16/2016 HISTORY: Post Operative Cardiac Surgery. REFERENCE: Previous study dated 09/15/2016. FINDINGS: There has been a midline sternotomy. The patient is ET tube and NG tube as well as the patient's [place] catheter remain in place, uncha nged in appearance. There appears to be a counter pulsation aortic balloon pump in place, unchanged i n appearance. There is a left pleural drain. The heart is mildly prominent. There is vascular congestion and mild edema. There is left basilar air space disease. No definite pleural fluid is seen. Overall aeration has improved. IMPRESSION: IMPROVING POSTOPERATIVE CHANGES.
[2016-09-16 08:06] LABS: Glucose,Whole Blood 132 mg/dL (75-99)
--- NOTE | 2016-09-16 08:29 | OP ---
DATE OF SERVICE: 09/15/2016 SURGEON: Aundrea Whatley MD FLAKER OPERATOR: Tanner SALMON and Derrick Linares, nurse practitioner. 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 OPERATION: 1. Quadruple coronary artery bypass grafting using the left internal mammary artery to the intramyocardial left anterior descending artery, reverse saphenous vein graft connected to the aorta using the PAS-Port device and connected distally to the right coronary artery after local endarterectomy, reverse saphenous vein graft connected to the aorta using the PAS-Port device and anastomosed sequentially to the second obtuse marginal artery in a [id number] fashion then the third obtuse marginal artery in an end-to-side fashion. 2. Endoscopic harvesting of the left greater saphenous vein. 3. Intraoperative transesophageal echocardiogram and epiaortic scanning. 4. Intraoperative graft flow measurements using the [id number].comstim system. ANESTHESIA: ESTIMATED BLOOD LOSS: SPECIMENS REMOVED: N/A COMPLICATIONS: OPERATIVE FINDINGS: as per post-op diagnosis INDICATION FOR SURGERY: Patient is a 60-year-old gentleman with above comorbidities, who was admitted with a picture of flash pulmonary edema and had positive cardiac enzymes. He had deep ST changes and for that was taken to the cardiac catheterization where severe left main disease was discovered, warranting insertion of an intra-aortic balloon pump. The right coronary artery had moderate disease in it. The ejection fraction was estimated at around 30%. His ejection fraction was normal around one year ago. Patient will be taken for emergent surgery with an increased risk in view of chronic Plavix intake, prior stroke and known occluded left CCA, left ventricular dysfunction and left main disease with diffuse atherosclerotic burden and kidney dysfunction. Risks, benefits, and alternatives were discussed with him and his . They understood them and agreed to proceed. DESCRIPTION OF THE PROCEDURE: Patient had a left brachial arterial line inserted in the preoperative holding area and had a right internal jugular Mere[place]-Myrtle catheter inserted. His PA pressure was 35/20, his cardiac index was 2. Subsequently, he was brought to the operating room and as I mentioned he had an intra-aortic balloon pump already inserted in the micro lab analyst and general endotracheal anesthesia was induced uneventfully. Chan catheter had been also inserted in the micro lab analyst. Patient received 2 grams of cefazolin intravenously. The chest, abdomen and both lower extremities were prepped and draped using ChloraPrep. Ioban was used to cover the skin. Transesophageal echocardiogram revealed evidence of global moderate to severe left ventricular dysfunction. No significant valvular abnormality at this point. The aorta appeared to be diseased. Midline sternotomy was performed and the bone was bit osteopenic. No bone wax was used. The left raya-sternum was elevated and left internal mammary artery was harvested in a semi-skeletonized fashion. The left pleura was intentionally opened in this process and was drained with 28 Dutch chest tube. I made a small breech in the right pleura intentionally at the end of the case to decompress any potential pneumothorax and the right pleura was not drained. In the same setting, the left greater saphenous vein was harvested endoscopically from groin to above ankle level after administration of 1000 units of heparin as the patient's baseline ACT was 187. All the branches were tied. The leg incisions were closed over a drain. Mediastinal fat was transected between 2 ties and epiaortic scanning revealed disease of ascending aorta. There was no protruding atheroma. However, we identified several wall calcification. Pericardium was opened in an inverted T fashion and pericardial cradle was created. Findings included a fatty heart with diffuse coronary artery disease and intramyocardial left anterior descending artery. The aorta was very short. It had a calcific plaque proximally up to midway more towards the left. There was another calcific plaque that started in the proximal arch on the convex side. After thorough assessment, we had room for clamping the aorta but limited residual space for proximals.. After administration of systemic heparin and placement of respective pledgeted pursestring at the level of the inner arch for the aortic cannulation and the level of the right atrial appendage for the venous cannulatio, a 21 Dutch soft flow aortic cannula and a 29/37 venous cannula were inserted. . Antegrade as well as retrograde cardioplegia catheters were placed. The mammary artery was double clipped distally and transected, had an excellent pulsatile flow in it; however it was thin-walled, spastic and around 1.5 mm in diameter. The vein was prepared and appeared to be of good quality, around 4 mm in diameter. We initiated cardiopulmonary bypass and with the heart empty, we remained warm. We looked at the target and it appeared that the LAD was totally intramyocardial. Using the epiaortic probe, I was able to locate it and found it deep in the myocardium and despite that position, it appeared to have also some wall disease in it, reflection of his advanced atherosclerotic burden. The right coronary artery wall appeared to be diseased and it was uncovered in the groove before it bifurcated as the branches were small. Looking at the lateral wall, the first obtuse marginal artery was very small by the time it came out of the groove and I was able to locate the second and the third obtuse marginal arteries, which will be the site for bypass. Judging the narrow space to work with on the aorta, I decided to perform my proximal anastomosis using the PAS-Port system. Two vein grafts long enough to reach the inferior wall and the lateral wall were fashioned, loaded on 2 PAS-Port device and deployed on the soft part of the mid ascending aorta for the left and on the anterior aspect of the proximal aorta for the right. Both proximal anastomoses were hemostatic. There was excellent flow from both ends. At this point, we initiated cardiopulmonary bypass and kept the intra-aortic balloon pump on internal pulsatile mode. The aorta was clamped and myocardial protection was achieved with an initial dose of 1 L of antegrade cold blood cardioplegia followed by 500 mL of retrograde cold blood cardioplegia with good arrest at 350cc. Subsequent doses were given combined retrograde and antegrade. The first distal anastomosis was between the vein graft already connected to the aorta and the right coronary artery, which was opened, had a wall disease in the form of a plaque that detached easily and required local endarterectomy. There was injury to its posterior wall that was repaired with 2 Prolene 7-0 tied on the outside. The anastomosis at this point was completed using Prolene 7-0 in continuous fashion. The second distal anastomosis between the vein graft already connected to the aorta and the second obtuse marginal artery in a trfi-fw-[id number] fashion. That artery was opened, it was around 1.5 mm in diameter and diseased and the anastomosis was completed using Prolene 7-0 in continuous fashion. The third distal anastomosis was between the end of that vein and the side of the third obtuse marginal artery, which was a thin wall vessel. I used a 1 mm shunt to better define the edges as I performed the anastomosis. The fourth and last distal anastomosis was between the left internal mammary artery and the mid aspect of the left anterior descending artery in a deep intramyocardial position using Prolene 7-0 in continuous fashion. The LAD was around 1.5 mm in diameter. The mammary pedicle was affixed to the epicardium with 2 Prolene 6-0. Rewarming had been started as we were performing the last distal anastomosis and after half load with Primacor we unclamped the aorta. After a period of reperfusion, we were able to wean off cardiopulmonary bypass on IABP , primacor at 0.3 and levophed.. The anastomosis appeared to be hemostatic. I elected to use some CoSeal over the right coronary artery anastomosis in view of the known posterior injury for any potential leak but that appeared very satisfactory. One ventricular pacing wire was placed on the inferior aspect of the RV. Graft flow revealed excellent flow in all 3 grafts. MARLENE showed improved left ventricular function and good RV function. Test dose than full dose protamine was given. Patient received 10 units of platelets in view of his chronic Plavix intake. Two substernal 32 Dutch chest tubes were placed. A groove was made in the left pleural pericardial fat to accommodate the mammary artery medial to the lung and away from the posterior sternal table. Mediastinal fat was approximated over the aorta and the proximal grafts. After ensuring adequate hemostasis and hemodynamics and after correct sponge, instrument and needle count, the sternum was approximated using 5 adyenk-ax-npahi [place] cable after interposing fibrillar between the sternal edges. Thorough irrigation with cefazolin followed. The rest of the closure proceeded in layers. Skin glue was applied. Patient was transferred to the ICU in stable condition with a mean arterial pressure of 84 on intra-aortic balloon pump one-to-one, PA pressure of 34/21, cardiac index of 3 on 0.25 Primacor and low-dose Levophed. [facility]
--- NOTE | 2016-09-16 08:34 | OP ---
DATE OF SERVICE: SURGEON: Aundrea Whatley MD CONTINUATION: The anastomosis appeared to be hemostatic. I elected to use some CoSeal over the right coronary artery anastomosis in view of the known posterior injury for any potential leak, that was satisfactory. One ventricular pacing wire was placed. Graft flow revealed excellent flow in all 3 grafts. With that again and weaned off ( ) bypass with a MARLENE showing improved left ventricular function and good LV function. Test dose and full dose protamine was given. Patient received 10 units of platelets in view of his chronic Plavix intake. Two substernal 32 [place] chest tubes were placed. A groove was made in the left pleural pericardial fat to accommodate the mammary artery medial to the lung and away from the posterior sternal table. After ensuring adequate hemostasis and hemodynamics and after correct sponge, instrument and needle count, the sternum was approximated using 5 [id number] [place] cable after interposing fibrillar between the sternal edges. Thorough irrigation with cefazolin followed. The rest of the closure proceeded in layers. Skin glue was applied. Patient was transferred to the ICU in stable condition with a mean arterial pressure of 84 on intra-aortic balloon pump one-to-one, PA pressure of 34/21, cardiac index of 3 on 0.25 Primacor and low-dose Levophed.
[2016-09-16] MEDS ORDERED: CALCIUM GLUCONATE 1,000 MG in SODIUM CHLORIDE 0.9% 100 ML IVPB ONE (09:00)
[2016-09-16] MEDS ORDERED: ATORVASTATIN 40 MG TAB PO SCH (09:00)
[2016-09-16 09:03] LABS: Glucose,Whole Blood 120 mg/dL (75-99)
[2016-09-16 10:01] LABS: Glucose,Whole Blood 118 mg/dL (75-99)
--- NOTE | 2016-09-16 10:18 | P.PN ---
Subjective Principal diagnosis: Non-STEMI with left main disease requiring placement of intra-aortic balloon pump, flash pulmonary edema. History of hypertension, hyperlipidemia, COPD, CVA , left carotid occlusion, SVT, chronic kidney disease stage III, and current tobacco dependence. POD #1 emergent myocardial revascularization with the OJEDA to the LAD, reverse saphenous vein graft to the RCA, reverse saphenous vein graft to the OM 2 sequentially to the OM 3. Endoscopic harvesting of the left greater saphenous vein. Epi-aortic scanning. Intraoperative transesophageal echocardiogram. Acute postoperative hypoxic respiratory failure requiring mechanical ventilation , an expected outcome of surgical procedure. The patient is currently sedated on mechanical ventilation. Does open eyes but with increase agitation requiring increased sedation. Objective - Vital Signs Vital signs: Vital Signs Temp 99.3 F 09/16/16 08:00 Pulse 103 H 09/16/16 08:00 Resp 20 09/16/16 04:00 BP 110/64 09/15/16 11:26 Pulse Ox 99 09/16/16 08:00 Intake & Output 09/15/16 09/16/16 09/16/16 18:59 06:59 18:59 Intake Total 450 1118.183 95.083 Output Total 550 4301 140 Balance -100 -3182.817 -44.917 Weight 88.9 kg Intake: IV 450 863.6 85.2 ACETAMINOPHEN IV (For NPO 200 ) 1,000 mg In Empty Bag 1 bag @ 400 mls/hr IVPB Q6HR [facility] Rx#:[id number] CO/CI 100 20 Lactated Ringers 1,000 ml 330 50 @ 50 mls/hr IV .Q20H [facility] Rx#:[id number] Nitroglycerin-D5w Pmx 50 12.0 mg In Dextrose/Water 1 250ml.bag @ 5 MCG/MIN 1.5 mls/hr IV .Q24H [facility] Rx#: [id number] Pressure Bag 72 9 Primacor 49.6 6.2 ceFAZolin 2 gm In Sodium 100 Chloride 0.9% 100 ml @ 100 mls/hr IVPB Q8HR [facility] Rx#:[id number] Intake, IV Titration 49.583 9.883 Amount Dexmedetomidine in 0.9 % 5.583 NaCl 400 mcg In Empty Bag 1 bag @ Titrate IV .Q0M [facility] Rx#:[id number] Insulin Regular 100 unit 16.638 6.383 In Sodium Chloride 0.9% 100 ml @ Per Protocol IV .Q0M [facility] Rx#:[id number] Norepinephrin 16 mg-0.9% 3.5 Ns Pmx 16 mg In 250 ml @ Titrate IV .Q0M [facility] Rx#: [id number] Propofol 500 mg In Empty 27.362 Bag 1 bag @ Titrate IV . Q0M [facility] Rx#:[id number] Blood Product 205 Platelet Pheresis Acda2 205 Unit [id number] Platelet Pheresis Acda3 0 Unit [id number] Output: Chest Tube Drainage 396 25 Bilateral Mediastinal 291 20 Left Pleural 105 5 Drainage 15 Left [place] 15 Urine 550 1905 100 Estimated Blood Loss 2000 Other: Voiding Method Indwelling Catheter # Voids 1 ABP, PAP, CO, CI - Last Documented Arterial Blood Pressure 114/59 Pulmonary Artery Pressure 36/21 Cardiac Output 5.3 Cardiac Index 3.1 - Constitutional General appearance: Present: no acute distress, obese - Respiratory Details: Lungs sounds diminished and coarse bilaterally. Respirations even, nonlabored on mechanical ventilation. Current ventilator settings: SIMV mode, FiO2 60%, tidal volume 550, respiratory rate 18, PEEP 10. Mediastinal chest tube to -20 cm wall suction, drained 320 mL serosanguineous fluid since surgery. Left pleural chest tube to -20 cm wall suction, drained 75 mL serosanguineous drainage since surgery. No air leak at this time. - Cardiovascular Details: S1, S2 present. Regular rate and rhythm, sinus rhythm to low sinus tach on telemetry. Sternum stable. Left brachial a line, right IJ [place] present. Right femoral intra-aortic balloon pump present. Ventricular epicardial pacemaker wire present, connected to generator, VVI mode backup rate 50 bpm. Bilateral radial, DP pulses palpable. No edema present. Teds/SCDs present. - Gastrointestinal Gastrointestinal Comment(s): abdomen soft, nontender, nondistended, round. Hypoactive bowel sounds present. OG tube present to low intermittent suction with minimal yellow output. - Genitourinary Genitourinary Comment(s): Chan present draining clear, yellow urine. Output 80-395 mL per hour overnight. - Integumentary Integumentary Comment(s): Anterior chest wall on approximated and covered with dry intact dressing. Left lower extremity EVH site well approximated, Dermabond present, MARTIN drain present draining minimal drainage. - Neurologic Neurologic Comment(s): Sedated on mechanical ventilation. Does open eyes to command but with increased agitation. Does move all 4 extremities. - Allied health notes Allied health notes reviewed: nursing - Labs CBC & Chem 7: 09/16/16 04:00 09/16/16 04:00 Labs: Abnormal Lab Results - Last 24 Hours (Table) 09/15/16 09/15/16 09/15/16 Range/Units 10:51 12:45 12:45 WBC (3.8-10.6) k/uL RBC (4.30-5.90) m/uL Hgb (13.0-17.5) gm/dL Hct (39.0-53.0) % Neutrophils # (1.3-7.7) k/uL Lymphocytes # (1.0-4.8) k/uL PT (9.0-12.0) sec APTT (22.0-30.0) sec ABG pH (7.35-7.45) ABG pCO2 (35-45) mmHg ABG pO2 (83-108) mmHg ABG HCO3 (21-25) mmol/L ABG Total CO2 (19-24) mmol/L ABG O2 Saturation (94-97) % ABG Hematocrit (34.0-46.0) % ABG Potassium (3.4-4.5) mmol/L Potassium (3.5-5.1) mmol/L Chloride (98-107) mmol/L Carbon Dioxide (22-30) mmol/L BUN (9-20) mg/dL Creatinine (0.66-1.25) mg/dL Glucose (74-99) mg/dL POC Glucose (mg/dL) (75-99) mg/dL Hemoglobin A1c 7.3 H (4.2-6.1) % Calcium (8.4-10.2) mg/dL Magnesium (1.6-2.3) mg/dL AST (17-59) U/L Alkaline Phosphatase (38-126) U/L CK-MB (CK-2) 6.3 H* (0.0-2.4) ng/mL Troponin I 0.936 H* (0.000-0.034) ng/mL Total Protein (6.3-8.2) g/dL Albumin (3.5-5.0) g/dL Triglycerides 356 H (<150) mg/dL HDL Cholesterol 29 L (40-60) mg/dL TSH 0.383 L (0.465-4.680) mIU/L Arterial Blood Potassium (3.4-4.5) mmol/L Urine Protein (Negative) Urine Bilirubin (Negative) Crossmatch 09/15/16 09/15/16 09/15/16 Range/Units 12:45 13:00 15:02 WBC (3.8-10.6) k/uL RBC (4.30-5.90) m/uL Hgb (13.0-17.5) gm/dL Hct (39.0-53.0) % Neutrophils # (1.3-7.7) k/uL Lymphocytes # (1.0-4.8) k/uL PT (9.0-12.0) sec APTT (22.0-30.0) sec ABG pH (7.35-7.45) ABG pCO2 (35-45) mmHg ABG pO2 (83-108) mmHg ABG HCO3 (21-25) mmol/L ABG Total CO2 (19-24) mmol/L ABG O2 Saturation (94-97) % ABG Hematocrit (34.0-46.0) % ABG Potassium (3.4-4.5) mmol/L Potassium (3.5-5.1) mmol/L Chloride (98-107) mmol/L Carbon Dioxide (22-30) mmol/L BUN (9-20) mg/dL Creatinine (0.66-1.25) mg/dL Glucose (74-99) mg/dL POC Glucose (mg/dL) 142 H (75-99) mg/dL Hemoglobin A1c (4.2-6.1) % Calcium (8.4-10.2) mg/dL Magnesium (1.6-2.3) mg/dL AST (17-59) U/L Alkaline Phosphatase (38-126) U/L CK-MB (CK-2) (0.0-2.4) ng/mL Troponin I (0.000-0.034) ng/mL Total Protein (6.3-8.2) g/dL Albumin (3.5-5.0) g/dL Triglycerides (<150) mg/dL HDL Cholesterol (40-60) mg/dL TSH (0.465-4.680) mIU/L Arterial Blood Potassium (3.4-4.5) mmol/L Urine Protein Trace H (Negative) Urine Bilirubin 1+ H (Negative) Crossmatch See Detail 09/15/16 09/15/16 09/15/16 Range/Units 15:02 17:08 17:09 WBC (3.8-10.6) k/uL RBC (4.30-5.90) m/uL Hgb (13.0-17.5) gm/dL Hct (39.0-53.0) % Neutrophils # (1.3-7.7) k/uL Lymphocytes # (1.0-4.8) k/uL PT (9.0-12.0) sec APTT (22.0-30.0) sec ABG pH 7.25 L (7.35-7.45) ABG pCO2 46 H (35-45) mmHg ABG pO2 133 H (83-108) mmHg ABG HCO3 19 L 19 L (21-25) mmol/L ABG Total CO2 (19-24) mmol/L ABG O2 Saturation 98.5 H (94-97) % ABG Hematocrit (34.0-46.0) % ABG Potassium 4.6 H 4.9 H (3.4-4.5) mmol/L Potassium (3.5-5.1) mmol/L Chloride (98-107) mmol/L Carbon Dioxide (22-30) mmol/L BUN (9-20) mg/dL Creatinine (0.66-1.25) mg/dL Glucose (74-99) mg/dL POC Glucose (mg/dL) 145 H (75-99) mg/dL Hemoglobin A1c (4.2-6.1) % Calcium (8.4-10.2) mg/dL Magnesium (1.6-2.3) mg/dL AST (17-59) U/L Alkaline Phosphatase (38-126) U/L CK-MB (CK-2) (0.0-2.4) ng/mL Troponin I (0.000-0.034) ng/mL Total Protein (6.3-8.2) g/dL Albumin (3.5-5.0) g/dL Triglycerides (<150) mg/dL HDL Cholesterol (40-60) mg/dL TSH (0.465-4.680) mIU/L Arterial Blood Potassium 4.6 H 4.9 H (3.4-4.5) mmol/L Urine Protein (Negative) Urine Bilirubin (Negative) Crossmatch 09/15/16 09/15/16 09/15/16 Range/Units 18:09 18:09 18:48 WBC (3.8-10.6) k/uL RBC (4.30-5.90) m/uL Hgb (13.0-17.5) gm/dL Hct (39.0-53.0) % Neutrophils # (1.3-7.7) k/uL Lymphocytes # (1.0-4.8) k/uL PT (9.0-12.0) sec APTT (22.0-30.0) sec ABG pH (7.35-7.45) ABG pCO2 (35-45) mmHg ABG pO2 >420 H (83-108) mmHg ABG HCO3 (21-25) mmol/L ABG Total CO2 (19-24) mmol/L ABG O2 Saturation 100.0 H (94-97) % ABG Hematocrit 33 L (34.0-46.0) % ABG Potassium 4.7 H (3.4-4.5) mmol/L Potassium (3.5-5.1) mmol/L Chloride (98-107) mmol/L Carbon Dioxide (22-30) mmol/L BUN (9-20) mg/dL Creatinine (0.66-1.25) mg/dL Glucose (74-99) mg/dL POC Glucose (mg/dL) 163 H 351 H (75-99) mg/dL Hemoglobin A1c (4.2-6.1) % Calcium (8.4-10.2) mg/dL Magnesium (1.6-2.3) mg/dL AST (17-59) U/L Alkaline Phosphatase (38-126) U/L CK-MB (CK-2) (0.0-2.4) ng/mL Troponin I (0.000-0.034) ng/mL Total Protein (6.3-8.2) g/dL Albumin (3.5-5.0) g/dL Triglycerides (<150) mg/dL HDL Cholesterol (40-60) mg/dL TSH (0.465-4.680) mIU/L Arterial Blood Potassium 4.7 H (3.4-4.5) mmol/L Urine Protein (Negative) Urine Bilirubin (Negative) Crossmatch 09/15/16 09/15/16 09/15/16 Range/Units 18:48 19:14 19:18 WBC (3.8-10.6) k/uL RBC (4.30-5.90) m/uL Hgb (13.0-17.5) gm/dL Hct (39.0-53.0) % Neutrophils # (1.3-7.7) k/uL Lymphocytes # (1.0-4.8) k/uL PT (9.0-12.0) sec APTT (22.0-30.0) sec ABG pH 7.27 L 7.30 L (7.35-7.45) ABG pCO2 51 H (35-45) mmHg ABG pO2 274 H 326 H (83-108) mmHg ABG HCO3 (21-25) mmol/L ABG Total CO2 (19-24) mmol/L ABG O2 Saturation 99.8 H 99.9 H (94-97) % ABG Hematocrit 31 L 30 L (34.0-46.0) % ABG Potassium 7.6 H* 7.4 H* (3.4-4.5) mmol/L Potassium (3.5-5.1) mmol/L Chloride (98-107) mmol/L Carbon Dioxide (22-30) mmol/L BUN (9-20) mg/dL Creatinine (0.66-1.25) mg/dL Glucose (74-99) mg/dL POC Glucose (mg/dL) 342 H (75-99) mg/dL Hemoglobin A1c (4.2-6.1) % Calcium (8.4-10.2) mg/dL Magnesium (1.6-2.3) mg/dL AST (17-59) U/L Alkaline Phosphatase (38-126) U/L CK-MB (CK-2) (0.0-2.4) ng/mL Troponin I (0.000-0.034) ng/mL Total Protein (6.3-8.2) g/dL Albumin (3.5-5.0) g/dL Triglycerides (<150) mg/dL HDL Cholesterol (40-60) mg/dL TSH (0.465-4.680) mIU/L Arterial Blood Potassium 7.6 H* 7.4 H* (3.4-4.5) mmol/L Urine Protein (Negative) Urine Bilirubin (Negative) Crossmatch 09/15/16 09/15/16 09/15/16 Range/Units 19:37 19:37 20:15 WBC (3.8-10.6) k/uL RBC (4.30-5.90) m/uL Hgb (13.0-17.5) gm/dL Hct (39.0-53.0) % Neutrophils # (1.3-7.7) k/uL Lymphocytes # (1.0-4.8) k/uL PT (9.0-12.0) sec APTT (22.0-30.0) sec ABG pH 7.34 L (7.35-7.45) ABG pCO2 (35-45) mmHg ABG pO2 314 H (83-108) mmHg ABG HCO3 (21-25) mmol/L ABG Total CO2 (19-24) mmol/L ABG O2 Saturation 99.9 H (94-97) % ABG Hematocrit 29 L (34.0-46.0) % ABG Potassium 6.7 H* (3.4-4.5) mmol/L Potassium (3.5-5.1) mmol/L Chloride (98-107) mmol/L Carbon Dioxide (22-30) mmol/L BUN (9-20) mg/dL Creatinine (0.66-1.25) mg/dL Glucose (74-99) mg/dL POC Glucose (mg/dL) 325 H 296 H (75-99) mg/dL Hemoglobin A1c (4.2-6.1) % Calcium (8.4-10.2) mg/dL Magnesium (1.6-2.3) mg/dL AST (17-59) U/L Alkaline Phosphatase (38-126) U/L CK-MB (CK-2) (0.0-2.4) ng/mL Troponin I (0.000-0.034) ng/mL Total Protein (6.3-8.2) g/dL Albumin (3.5-5.0) g/dL Triglycerides (<150) mg/dL HDL Cholesterol (40-60) mg/dL TSH (0.465-4.680) mIU/L Arterial Blood Potassium 6.7 H* (3.4-4.5) mmol/L Urine Protein (Negative) Urine Bilirubin (Negative) Crossmatch 09/15/16 09/15/16 09/15/16 Range/Units 20:15 20:42 20:43 WBC (3.8-10.6) k/uL RBC (4.30-5.90) m/uL Hgb (13.0-17.5) gm/dL Hct (39.0-53.0) % Neutrophils # (1.3-7.7) k/uL Lymphocytes # (1.0-4.8) k/uL PT (9.0-12.0) sec APTT (22.0-30.0) sec ABG pH 7.28 L 7.33 L (7.35-7.45) ABG pCO2 (35-45) mmHg ABG pO2 290 H (83-108) mmHg ABG HCO3 20 L (21-25) mmol/L ABG Total CO2 (19-24) mmol/L ABG O2 Saturation 99.9 H 97.2 H (94-97) % ABG Hematocrit 29 L 31 L (34.0-46.0) % ABG Potassium 5.5 H (3.4-4.5) mmol/L Potassium (3.5-5.1) mmol/L Chloride (98-107) mmol/L Carbon Dioxide (22-30) mmol/L BUN (9-20) mg/dL Creatinine (0.66-1.25) mg/dL Glucose (74-99) mg/dL POC Glucose (mg/dL) 254 H (75-99) mg/dL Hemoglobin A1c (4.2-6.1) % Calcium (8.4-10.2) mg/dL Magnesium (1.6-2.3) mg/dL AST (17-59) U/L Alkaline Phosphatase (38-126) U/L CK-MB (CK-2) (0.0-2.4) ng/mL Troponin I (0.000-0.034) ng/mL Total Protein (6.3-8.2) g/dL Albumin (3.5-5.0) g/dL Triglycerides (<150) mg/dL HDL Cholesterol (40-60) mg/dL TSH (0.465-4.680) mIU/L Arterial Blood Potassium 5.5 H (3.4-4.5) mmol/L Urine Protein (Negative) Urine Bilirubin (Negative) Crossmatch 09/15/16 09/15/16 09/15/16 Range/Units 21:24 21:24 22:27 WBC (3.8-10.6) k/uL RBC (4.30-5.90) m/uL Hgb (13.0-17.5) gm/dL Hct (39.0-53.0) % Neutrophils # (1.3-7.7) k/uL Lymphocytes # (1.0-4.8) k/uL PT (9.0-12.0) sec APTT (22.0-30.0) sec ABG pH (7.35-7.45) ABG pCO2 (35-45) mmHg ABG pO2 (83-108) mmHg ABG HCO3 (21-25) mmol/L ABG Total CO2 (19-24) mmol/L ABG O2 Saturation (94-97) % ABG Hematocrit 32 L (34.0-46.0) % ABG Potassium (3.4-4.5) mmol/L Potassium (3.5-5.1) mmol/L Chloride (98-107) mmol/L Carbon Dioxide (22-30) mmol/L BUN (9-20) mg/dL Creatinine (0.66-1.25) mg/dL Glucose (74-99) mg/dL POC Glucose (mg/dL) 193 H 129 H (75-99) mg/dL Hemoglobin A1c (4.2-6.1) % Calcium (8.4-10.2) mg/dL Magnesium (1.6-2.3) mg/dL AST (17-59) U/L Alkaline Phosphatase (38-126) U/L CK-MB (CK-2) (0.0-2.4) ng/mL Troponin I (0.000-0.034) ng/mL Total Protein (6.3-8.2) g/dL Albumin (3.5-5.0) g/dL Triglycerides (<150) mg/dL HDL Cholesterol (40-60) mg/dL TSH (0.465-4.680) mIU/L Arterial Blood Potassium (3.4-4.5) mmol/L Urine Protein (Negative) Urine Bilirubin (Negative) Crossmatch 09/15/16 09/15/16 09/15/16 Range/Units 22:30 22:30 22:30 WBC 13.2 H (3.8-10.6) k/uL RBC 2.93 L (4.30-5.90) m/uL Hgb 8.6 L D (13.0-17.5) gm/dL Hct 26.2 L (39.0-53.0) % Neutrophils # 11.5 H (1.3-7.7) k/uL Lymphocytes # (1.0-4.8) k/uL PT 13.3 H (9.0-12.0) sec APTT 32.3 H (22.0-30.0) sec ABG pH (7.35-7.45) ABG pCO2 (35-45) mmHg ABG pO2 (83-108) mmHg ABG HCO3 (21-25) mmol/L ABG Total CO2 (19-24) mmol/L ABG O2 Saturation (94-97) % ABG Hematocrit (34.0-46.0) % ABG Potassium (3.4-4.5) mmol/L Potassium (3.5-5.1) mmol/L Chloride 112 H (98-107) mmol/L Carbon Dioxide (22-30) mmol/L BUN 41 H (9-20) mg/dL Creatinine 1.78 H (0.66-1.25) mg/dL Glucose 108 H (74-99) mg/dL POC Glucose (mg/dL) (75-99) mg/dL Hemoglobin A1c (4.2-6.1) % Calcium 7.5 L (8.4-10.2) mg/dL Magnesium 2.9 H (1.6-2.3) mg/dL AST (17-59) U/L Alkaline Phosphatase 30 L (38-126) U/L CK-MB (CK-2) (0.0-2.4) ng/mL Troponin I (0.000-0.034) ng/mL Total Protein 4.8 L (6.3-8.2) g/dL Albumin 3.2 L (3.5-5.0) g/dL Triglycerides (<150) mg/dL HDL Cholesterol (40-60) mg/dL TSH (0.465-4.680) mIU/L Arterial Blood Potassium (3.4-4.5) mmol/L Urine Protein (Negative) Urine Bilirubin (Negative) Crossmatch 09/15/16 09/15/16 09/16/16 Range/Units 22:59 23:25 00:57 WBC (3.8-10.6) k/uL RBC (4.30-5.90) m/uL Hgb (13.0-17.5) gm/dL Hct (39.0-53.0) % Neutrophils # (1.3-7.7) k/uL Lymphocytes # (1.0-4.8) k/uL PT (9.0-12.0) sec APTT (22.0-30.0) sec ABG pH (7.35-7.45) ABG pCO2 (35-45) mmHg ABG pO2 157 H (83-108) mmHg ABG HCO3 (21-25) mmol/L ABG Total CO2 25 H (19-24) mmol/L ABG O2 Saturation 99.0 H (94-97) % ABG Hematocrit (34.0-46.0) % ABG Potassium (3.4-4.5) mmol/L Potassium (3.5-5.1) mmol/L Chloride (98-107) mmol/L Carbon Dioxide (22-30) mmol/L BUN (9-20) mg/dL Creatinine (0.66-1.25) mg/dL Glucose (74-99) mg/dL POC Glucose (mg/dL) 109 H 121 H (75-99) mg/dL Hemoglobin A1c (4.2-6.1) % Calcium (8.4-10.2) mg/dL Magnesium (1.6-2.3) mg/dL AST (17-59) U/L Alkaline Phosphatase (38-126) U/L CK-MB (CK-2) (0.0-2.4) ng/mL Troponin I (0.000-0.034) ng/mL Total Protein (6.3-8.2) g/dL Albumin (3.5-5.0) g/dL Triglycerides (<150) mg/dL HDL Cholesterol (40-60) mg/dL TSH (0.465-4.680) mIU/L Arterial Blood Potassium (3.4-4.5) mmol/L Urine Protein (Negative) Urine Bilirubin (Negative) Crossmatch 09/16/16 09/16/16 09/16/16 Range/Units 02:05 03:04 04:00 WBC 14.6 H (3.8-10.6) k/uL RBC 2.96 L (4.30-5.90) m/uL Hgb 8.4 L (13.0-17.5) gm/dL Hct 27.3 L (39.0-53.0) % Neutrophils # 13.3 H (1.3-7.7) k/uL Lymphocytes # 0.6 L (1.0-4.8) k/uL PT (9.0-12.0) sec APTT (22.0-30.0) sec ABG pH (7.35-7.45) ABG pCO2 (35-45) mmHg ABG pO2 (83-108) mmHg ABG HCO3 (21-25) mmol/L ABG Total CO2 (19-24) mmol/L ABG O2 Saturation (94-97) % ABG Hematocrit (34.0-46.0) % ABG Potassium (3.4-4.5) mmol/L Potassium (3.5-5.1) mmol/L Chloride (98-107) mmol/L Carbon Dioxide (22-30) mmol/L BUN (9-20) mg/dL Creatinine (0.66-1.25) mg/dL Glucose (74-99) mg/dL POC Glucose (mg/dL) 154 H 194 H (75-99) mg/dL Hemoglobin A1c (4.2-6.1) % Calcium (8.4-10.2) mg/dL Magnesium (1.6-2.3) mg/dL AST (17-59) U/L Alkaline Phosphatase (38-126) U/L CK-MB (CK-2) (0.0-2.4) ng/mL Troponin I (0.000-0.034) ng/mL Total Protein (6.3-8.2) g/dL Albumin (3.5-5.0) g/dL Triglycerides (<150) mg/dL HDL Cholesterol (40-60) mg/dL TSH (0.465-4.680) mIU/L Arterial Blood Potassium (3.4-4.5) mmol/L Urine Protein (Negative) Urine Bilirubin (Negative) Crossmatch 09/16/16 09/16/16 09/16/16 Range/Units 04:00 04:00 05:05 WBC (3.8-10.6) k/uL RBC (4.30-5.90) m/uL Hgb (13.0-17.5) gm/dL Hct (39.0-53.0) % Neutrophils # (1.3-7.7) k/uL Lymphocytes # (1.0-4.8) k/uL PT (9.0-12.0) sec APTT (22.0-30.0) sec ABG pH (7.35-7.45) ABG pCO2 (35-45) mmHg ABG pO2 (83-108) mmHg ABG HCO3 (21-25) mmol/L ABG Total CO2 (19-24) mmol/L ABG O2 Saturation (94-97) % ABG Hematocrit (34.0-46.0) % ABG Potassium (3.4-4.5) mmol/L Potassium 5.2 H (3.5-5.1) mmol/L Chloride 113 H (98-107) mmol/L Carbon Dioxide 21 L (22-30) mmol/L BUN 40 H (9-20) mg/dL Creatinine 2.00 H (0.66-1.25) mg/dL Glucose 172 H (74-99) mg/dL POC Glucose (mg/dL) 200 H 189 H (75-99) mg/dL Hemoglobin A1c (4.2-6.1) % Calcium 7.9 L (8.4-10.2) mg/dL Magnesium 2.6 H (1.6-2.3) mg/dL AST 75 H (17-59) U/L Alkaline Phosphatase 37 L (38-126) U/L CK-MB (CK-2) (0.0-2.4) ng/mL Troponin I (0.000-0.034) ng/mL Total Protein 4.5 L (6.3-8.2) g/dL Albumin 3.1 L (3.5-5.0) g/dL Triglycerides (<150) mg/dL HDL Cholesterol (40-60) mg/dL TSH (0.465-4.680) mIU/L Arterial Blood Potassium (3.4-4.5) mmol/L Urine Protein (Negative) Urine Bilirubin (Negative) Crossmatch 09/16/16 09/16/16 09/16/16 Range/Units 05:35 05:59 07:07 WBC (3.8-10.6) k/uL RBC (4.30-5.90) m/uL Hgb (13.0-17.5) gm/dL Hct (39.0-53.0) % Neutrophils # (1.3-7.7) k/uL Lymphocytes # (1.0-4.8) k/uL PT (9.0-12.0) sec APTT (22.0-30.0) sec ABG pH 7.47 H (7.35-7.45) ABG pCO2 30 L (35-45) mmHg ABG pO2 82 L (83-108) mmHg ABG HCO3 (21-25) mmol/L ABG Total CO2 (19-24) mmol/L ABG O2 Saturation (94-97) % ABG Hematocrit (34.0-46.0) % ABG Potassium (3.4-4.5) mmol/L Potassium (3.5-5.1) mmol/L Chloride (98-107) mmol/L Carbon Dioxide (22-30) mmol/L BUN (9-20) mg/dL Creatinine (0.66-1.25) mg/dL Glucose (74-99) mg/dL POC Glucose (mg/dL) 166 H 164 H (75-99) mg/dL Hemoglobin A1c (4.2-6.1) % Calcium (8.4-10.2) mg/dL Magnesium (1.6-2.3) mg/dL AST (17-59) U/L Alkaline Phosphatase (38-126) U/L CK-MB (CK-2) (0.0-2.4) ng/mL Troponin I (0.000-0.034) ng/mL Total Protein (6.3-8.2) g/dL Albumin (3.5-5.0) g/dL Triglycerides (<150) mg/dL HDL Cholesterol (40-60) mg/dL TSH (0.465-4.680) mIU/L Arterial Blood Potassium (3.4-4.5) mmol/L Urine Protein (Negative) Urine Bilirubin (Negative) Crossmatch 09/16/16 Range/Units 08:04 WBC (3.8-10.6) k/uL RBC (4.30-5.90) m/uL Hgb (13.0-17.5) gm/dL Hct (39.0-53.0) % Neutrophils # (1.3-7.7) k/uL Lymphocytes # (1.0-4.8) k/uL PT (9.0-12.0) sec APTT (22.0-30.0) sec ABG pH (7.35-7.45) ABG pCO2 (35-45) mmHg ABG pO2 (83-108) mmHg ABG HCO3 (21-25) mmol/L ABG Total CO2 (19-24) mmol/L ABG O2 Saturation (94-97) % ABG Hematocrit (34.0-46.0) % ABG Potassium (3.4-4.5) mmol/L Potassium (3.5-5.1) mmol/L Chloride (98-107) mmol/L Carbon Dioxide (22-30) mmol/L BUN (9-20) mg/dL Creatinine (0.66-1.25) mg/dL Glucose (74-99) mg/dL POC Glucose (mg/dL) 132 H (75-99) mg/dL Hemoglobin A1c (4.2-6.1) % Calcium (8.4-10.2) mg/dL Magnesium (1.6-2.3) mg/dL AST (17-59) U/L Alkaline Phosphatase (38-126) U/L CK-MB (CK-2) (0.0-2.4) ng/mL Troponin I (0.000-0.034) ng/mL Total Protein (6.3-8.2) g/dL Albumin (3.5-5.0) g/dL Triglycerides (<150) mg/dL HDL Cholesterol (40-60) mg/dL TSH (0.465-4.680) mIU/L Arterial Blood Potassium (3.4-4.5) mmol/L Urine Protein (Negative) Urine Bilirubin (Negative) Crossmatch Microbiology - Last 24 Hours (Table) 09/15/16 13:00 Urine Culture - Preliminary Urine,Catheterized - Imaging and Cardiology Chest x-ray: report reviewed, image reviewed Assessment and Plan (1) Non-STEMI (non-ST elevated myocardial infarction) Status: Acute (2) Left main coronary artery disease Status: Acute (3) History of CVA (cerebrovascular accident) Status: Acute (4) Left carotid artery occlusion Status: Acute (5) COPD (chronic obstructive pulmonary disease) Status: Acute (6) Uncontrolled type 2 diabetes mellitus Status: Acute (7) Hyperlipidemia Status: Acute (8) Chronic kidney disease, stage III (moderate) Status: Acute (9) History of paroxysmal supraventricular tachycardia Status: Acute (10) Tobacco dependence Status: Acute (11) Obesity (BMI 30.0-34.9) Status: Acute (12) Hypertension Status: Acute Plan: 1. Continue aspirin, plavix, statin, beta chandu, heparin subcu. 2. Wean mechanical ventilation as tolerated. [employer] to manage. 3. Intra-aortic balloon pump placed to 1:2 frequency. Keep mean pressure greater than 75. Avoid episodes of hypotension. 4. Will wean levo and Primacor as tolerated. 5. Avoid nephrotoxins. [employer] on consult. 6. Insulin drip/diabetic management per primary care service. 7. Monitor daily labs, chest x-rays. 8. GI/DVT prophylaxis. 9. More recommendations as patient progresses. Time with Patient: Greater than 30
--- NOTE | 2016-09-16 10:55 | P.PN ---
Subjective Patient is seen in follow-up for acute kidney injury on chronic kidney disease. Patient has chronic kidney disease stage III secondary to diabetic kidney disease with baseline creatinine near 1.5. Creatinine is up to 2 today. Patient presented with dyspnea and flash pulmonary edema. Patient underwent a cardiac catheterization on September 16 which revealed triple-vessel disease and subsequently underwent emergent CABG on September 16. He is currently intubated and sedated in the intensive care unit. He is requiring 11 mics of levofed and is also on a Primacor drip. He is nonoliguric. Vital signs are stable. General: The patient appeared well nourished and normally developed. Intubated. HEENT: Head exam is unremarkable. Neck is without jugular venous distension. LUNGS: Scattered rhonchi. Breath sounds decreased. HEART: Rate and Rhythm are regular. First and second heart sounds normal. No murmurs, rubs or gallops. ABDOMEN: Abdominal exam reveals normal bowel sounds. Non-tender and non- distended. No evidence of peritonitis. EXTREMITITES: No clubbing, cyanosis, or edema. Objective - Vital Signs Vital signs: Vital Signs Temp 99.3 F 09/16/16 08:00 Pulse 115 H 09/16/16 10:00 Resp 21 09/16/16 09:00 BP 110/64 09/15/16 11:26 Pulse Ox 97 09/16/16 10:00 Intake & Output 09/15/16 09/16/16 09/16/16 18:59 06:59 18:59 Intake Total 450 1118.183 580.006 Output Total 550 4301 490 Balance -100 -3182.817 90.006 Weight 88.9 kg 88.9 kg Intake: IV 450 863.6 392.2 ACETAMINOPHEN IV (For NPO 200 ) 1,000 mg In Empty Bag 1 bag @ 400 mls/hr IVPB Q6HR [facility] Rx#:[id number] CO/CI 100 50 Lactated Ringers 1,000 ml 330 200 @ 50 mls/hr IV .Q20H [facility] Rx#:[id number] Nitroglycerin-D5w Pmx 50 12.0 mg In Dextrose/Water 1 250ml.bag @ 5 MCG/MIN 1.5 mls/hr IV .Q24H [facility] Rx#: [id number] Pressure Bag 72 36 Primacor 49.6 6.2 ceFAZolin 2 gm In Sodium 100 100 Chloride 0.9% 100 ml @ 100 mls/hr IVPB Q8HR [facility] Rx#:[id number] Intake, IV Titration 49.583 187.806 Amount Calcium Gluconate 1,000 100 mg In Sodium Chloride 0.9 % 100 ml @ 100 mls/hr IVPB ONCE [facility] Rx#: [id number] Dexmedetomidine in 0.9 % 5.583 45.094 NaCl 400 mcg In Empty Bag 1 bag @ Titrate IV .Q0M [facility] Rx#:[id number] Insulin Regular 100 unit 16.638 18.025 In Sodium Chloride 0.9% 100 ml @ Per Protocol IV .Q0M [facility] Rx#:[id number] Norepinephrin 16 mg-0.9% 24.687 Ns Pmx 16 mg In 250 ml @ Titrate IV .Q0M [facility] Rx#: [id number] Propofol 500 mg In Empty 27.362 Bag 1 bag @ Titrate IV . Q0M [facility] Rx#:[id number] Blood Product 205 Platelet Pheresis Acda2 205 Unit [id number] Platelet Pheresis Acda3 0 Unit [id number] Output: Chest Tube Drainage 396 130 Bilateral Mediastinal 291 100 Left Pleural 105 30 Drainage 15 Left [place] 15 Urine 550 1905 345 Estimated Blood Loss 1999 Other: Voiding Method Indwelling Catheter Indwelling Catheter # Voids 1 ABP, PAP, CO, CI - Last Documented Arterial Blood Pressure 95/59 Pulmonary Artery Pressure 33/21 Cardiac Output 7.6 Cardiac Index 4.0 - Labs CBC & Chem 7: 09/16/16 04:00 09/16/16 04:00 Labs: Abnormal Lab Results - Last 24 Hours (Table) 09/15/16 09/15/16 09/15/16 Range/Units 10:51 12:45 12:45 WBC (3.8-10.6) k/uL RBC (4.30-5.90) m/uL Hgb (13.0-17.5) gm/dL Hct (39.0-53.0) % Neutrophils # (1.3-7.7) k/uL Lymphocytes # (1.0-4.8) k/uL PT (9.0-12.0) sec APTT (22.0-30.0) sec ABG pH (7.35-7.45) ABG pCO2 (35-45) mmHg ABG pO2 (83-108) mmHg ABG HCO3 (21-25) mmol/L ABG Total CO2 (19-24) mmol/L ABG O2 Saturation (94-97) % ABG Hematocrit (34.0-46.0) % ABG Potassium (3.4-4.5) mmol/L Potassium (3.5-5.1) mmol/L Chloride (98-107) mmol/L Carbon Dioxide (22-30) mmol/L BUN (9-20) mg/dL Creatinine (0.66-1.25) mg/dL Glucose (74-99) mg/dL POC Glucose (mg/dL) (75-99) mg/dL Hemoglobin A1c 7.3 H (4.2-6.1) % Calcium (8.4-10.2) mg/dL Magnesium (1.6-2.3) mg/dL AST (17-59) U/L Alkaline Phosphatase (38-126) U/L CK-MB (CK-2) 6.3 H* (0.0-2.4) ng/mL Troponin I 0.936 H* (0.000-0.034) ng/mL Total Protein (6.3-8.2) g/dL Albumin (3.5-5.0) g/dL Triglycerides 356 H (<150) mg/dL HDL Cholesterol 29 L (40-60) mg/dL TSH 0.383 L (0.465-4.680) mIU/L Arterial Blood Potassium (3.4-4.5) mmol/L Urine Protein (Negative) Urine Bilirubin (Negative) Crossmatch 09/15/16 09/15/16 09/15/16 Range/Units 12:45 13:00 15:02 WBC (3.8-10.6) k/uL RBC (4.30-5.90) m/uL Hgb (13.0-17.5) gm/dL Hct (39.0-53.0) % Neutrophils # (1.3-7.7) k/uL Lymphocytes # (1.0-4.8) k/uL PT (9.0-12.0) sec APTT (22.0-30.0) sec ABG pH (7.35-7.45) ABG pCO2 (35-45) mmHg ABG pO2 (83-108) mmHg ABG HCO3 (21-25) mmol/L ABG Total CO2 (19-24) mmol/L ABG O2 Saturation (94-97) % ABG Hematocrit (34.0-46.0) % ABG Potassium (3.4-4.5) mmol/L Potassium (3.5-5.1) mmol/L Chloride (98-107) mmol/L Carbon Dioxide (22-30) mmol/L BUN (9-20) mg/dL Creatinine (0.66-1.25) mg/dL Glucose (74-99) mg/dL POC Glucose (mg/dL) 142 H (75-99) mg/dL Hemoglobin A1c (4.2-6.1) % Calcium (8.4-10.2) mg/dL Magnesium (1.6-2.3) mg/dL AST (17-59) U/L Alkaline Phosphatase (38-126) U/L CK-MB (CK-2) (0.0-2.4) ng/mL Troponin I (0.000-0.034) ng/mL Total Protein (6.3-8.2) g/dL Albumin (3.5-5.0) g/dL Triglycerides (<150) mg/dL HDL Cholesterol (40-60) mg/dL TSH (0.465-4.680) mIU/L Arterial Blood Potassium (3.4-4.5) mmol/L Urine Protein Trace H (Negative) Urine Bilirubin 1+ H (Negative) Crossmatch See Detail 09/15/16 09/15/16 09/15/16 Range/Units 15:02 17:08 17:09 WBC (3.8-10.6) k/uL RBC (4.30-5.90) m/uL Hgb (13.0-17.5) gm/dL Hct (39.0-53.0) % Neutrophils # (1.3-7.7) k/uL Lymphocytes # (1.0-4.8) k/uL PT (9.0-12.0) sec APTT (22.0-30.0) sec ABG pH 7.25 L (7.35-7.45) ABG pCO2 46 H (35-45) mmHg ABG pO2 133 H (83-108) mmHg ABG HCO3 19 L 19 L (21-25) mmol/L ABG Total CO2 (19-24) mmol/L ABG O2 Saturation 98.5 H (94-97) % ABG Hematocrit (34.0-46.0) % ABG Potassium 4.6 H 4.9 H (3.4-4.5) mmol/L Potassium (3.5-5.1) mmol/L Chloride (98-107) mmol/L Carbon Dioxide (22-30) mmol/L BUN (9-20) mg/dL Creatinine (0.66-1.25) mg/dL Glucose (74-99) mg/dL POC Glucose (mg/dL) 145 H (75-99) mg/dL Hemoglobin A1c (4.2-6.1) % Calcium (8.4-10.2) mg/dL Magnesium (1.6-2.3) mg/dL AST (17-59) U/L Alkaline Phosphatase (38-126) U/L CK-MB (CK-2) (0.0-2.4) ng/mL Troponin I (0.000-0.034) ng/mL Total Protein (6.3-8.2) g/dL Albumin (3.5-5.0) g/dL Triglycerides (<150) mg/dL HDL Cholesterol (40-60) mg/dL TSH (0.465-4.680) mIU/L Arterial Blood Potassium 4.6 H 4.9 H (3.4-4.5) mmol/L Urine Protein (Negative) Urine Bilirubin (Negative) Crossmatch 09/15/16 09/15/16 09/15/16 Range/Units 18:09 18:09 18:48 WBC (3.8-10.6) k/uL RBC (4.30-5.90) m/uL Hgb (13.0-17.5) gm/dL Hct (39.0-53.0) % Neutrophils # (1.3-7.7) k/uL Lymphocytes # (1.0-4.8) k/uL PT (9.0-12.0) sec APTT (22.0-30.0) sec ABG pH (7.35-7.45) ABG pCO2 (35-45) mmHg ABG pO2 >420 H (83-108) mmHg ABG HCO3 (21-25) mmol/L ABG Total CO2 (19-24) mmol/L ABG O2 Saturation 100.0 H (94-97) % ABG Hematocrit 33 L (34.0-46.0) % ABG Potassium 4.7 H (3.4-4.5) mmol/L Potassium (3.5-5.1) mmol/L Chloride (98-107) mmol/L Carbon Dioxide (22-30) mmol/L BUN (9-20) mg/dL Creatinine (0.66-1.25) mg/dL Glucose (74-99) mg/dL POC Glucose (mg/dL) 163 H 351 H (75-99) mg/dL Hemoglobin A1c (4.2-6.1) % Calcium (8.4-10.2) mg/dL Magnesium (1.6-2.3) mg/dL AST (17-59) U/L Alkaline Phosphatase (38-126) U/L CK-MB (CK-2) (0.0-2.4) ng/mL Troponin I (0.000-0.034) ng/mL Total Protein (6.3-8.2) g/dL Albumin (3.5-5.0) g/dL Triglycerides (<150) mg/dL HDL Cholesterol (40-60) mg/dL TSH (0.465-4.680) mIU/L Arterial Blood Potassium 4.7 H (3.4-4.5) mmol/L Urine Protein (Negative) Urine Bilirubin (Negative) Crossmatch 09/15/16 09/15/16 09/15/16 Range/Units 18:48 19:14 19:18 WBC (3.8-10.6) k/uL RBC (4.30-5.90) m/uL Hgb (13.0-17.5) gm/dL Hct (39.0-53.0) % Neutrophils # (1.3-7.7) k/uL Lymphocytes # (1.0-4.8) k/uL PT (9.0-12.0) sec APTT (22.0-30.0) sec ABG pH 7.27 L 7.30 L (7.35-7.45) ABG pCO2 51 H (35-45) mmHg ABG pO2 274 H 326 H (83-108) mmHg ABG HCO3 (21-25) mmol/L ABG Total CO2 (19-24) mmol/L ABG O2 Saturation 99.8 H 99.9 H (94-97) % ABG Hematocrit 31 L 30 L (34.0-46.0) % ABG Potassium 7.6 H* 7.4 H* (3.4-4.5) mmol/L Potassium (3.5-5.1) mmol/L Chloride (98-107) mmol/L Carbon Dioxide (22-30) mmol/L BUN (9-20) mg/dL Creatinine (0.66-1.25) mg/dL Glucose (74-99) mg/dL POC Glucose (mg/dL) 342 H (75-99) mg/dL Hemoglobin A1c (4.2-6.1) % Calcium (8.4-10.2) mg/dL Magnesium (1.6-2.3) mg/dL AST (17-59) U/L Alkaline Phosphatase (38-126) U/L CK-MB (CK-2) (0.0-2.4) ng/mL Troponin I (0.000-0.034) ng/mL Total Protein (6.3-8.2) g/dL Albumin (3.5-5.0) g/dL Triglycerides (<150) mg/dL HDL Cholesterol (40-60) mg/dL TSH (0.465-4.680) mIU/L Arterial Blood Potassium 7.6 H* 7.4 H* (3.4-4.5) mmol/L Urine Protein (Negative) Urine Bilirubin (Negative) Crossmatch 09/15/16 09/15/16 09/15/16 Range/Units 19:37 19:37 20:15 WBC (3.8-10.6) k/uL RBC (4.30-5.90) m/uL Hgb (13.0-17.5) gm/dL Hct (39.0-53.0) % Neutrophils # (1.3-7.7) k/uL Lymphocytes # (1.0-4.8) k/uL PT (9.0-12.0) sec APTT (22.0-30.0) sec ABG pH 7.34 L (7.35-7.45) ABG pCO2 (35-45) mmHg ABG pO2 314 H (83-108) mmHg ABG HCO3 (21-25) mmol/L ABG Total CO2 (19-24) mmol/L ABG O2 Saturation 99.9 H (94-97) % ABG Hematocrit 29 L (34.0-46.0) % ABG Potassium 6.7 H* (3.4-4.5) mmol/L Potassium (3.5-5.1) mmol/L Chloride (98-107) mmol/L Carbon Dioxide (22-30) mmol/L BUN (9-20) mg/dL Creatinine (0.66-1.25) mg/dL Glucose (74-99) mg/dL POC Glucose (mg/dL) 325 H 296 H (75-99) mg/dL Hemoglobin A1c (4.2-6.1) % Calcium (8.4-10.2) mg/dL Magnesium (1.6-2.3) mg/dL AST (17-59) U/L Alkaline Phosphatase (38-126) U/L CK-MB (CK-2) (0.0-2.4) ng/mL Troponin I (0.000-0.034) ng/mL Total Protein (6.3-8.2) g/dL Albumin (3.5-5.0) g/dL Triglycerides (<150) mg/dL HDL Cholesterol (40-60) mg/dL TSH (0.465-4.680) mIU/L Arterial Blood Potassium 6.7 H* (3.4-4.5) mmol/L Urine Protein (Negative) Urine Bilirubin (Negative) Crossmatch 09/15/16 09/15/16 09/15/16 Range/Units 20:15 20:42 20:43 WBC (3.8-10.6) k/uL RBC (4.30-5.90) m/uL Hgb (13.0-17.5) gm/dL Hct (39.0-53.0) % Neutrophils # (1.3-7.7) k/uL Lymphocytes # (1.0-4.8) k/uL PT (9.0-12.0) sec APTT (22.0-30.0) sec ABG pH 7.28 L 7.33 L (7.35-7.45) ABG pCO2 (35-45) mmHg ABG pO2 290 H (83-108) mmHg ABG HCO3 20 L (21-25) mmol/L ABG Total CO2 (19-24) mmol/L ABG O2 Saturation 99.9 H 97.2 H (94-97) % ABG Hematocrit 29 L 31 L (34.0-46.0) % ABG Potassium 5.5 H (3.4-4.5) mmol/L Potassium (3.5-5.1) mmol/L Chloride (98-107) mmol/L Carbon Dioxide (22-30) mmol/L BUN (9-20) mg/dL Creatinine (0.66-1.25) mg/dL Glucose (74-99) mg/dL POC Glucose (mg/dL) 254 H (75-99) mg/dL Hemoglobin A1c (4.2-6.1) % Calcium (8.4-10.2) mg/dL Magnesium (1.6-2.3) mg/dL AST (17-59) U/L Alkaline Phosphatase (38-126) U/L CK-MB (CK-2) (0.0-2.4) ng/mL Troponin I (0.000-0.034) ng/mL Total Protein (6.3-8.2) g/dL Albumin (3.5-5.0) g/dL Triglycerides (<150) mg/dL HDL Cholesterol (40-60) mg/dL TSH (0.465-4.680) mIU/L Arterial Blood Potassium 5.5 H (3.4-4.5) mmol/L Urine Protein (Negative) Urine Bilirubin (Negative) Crossmatch 09/15/16 09/15/16 09/15/16 Range/Units 21:24 21:24 22:27 WBC (3.8-10.6) k/uL RBC (4.30-5.90) m/uL Hgb (13.0-17.5) gm/dL Hct (39.0-53.0) % Neutrophils # (1.3-7.7) k/uL Lymphocytes # (1.0-4.8) k/uL PT (9.0-12.0) sec APTT (22.0-30.0) sec ABG pH (7.35-7.45) ABG pCO2 (35-45) mmHg ABG pO2 (83-108) mmHg ABG HCO3 (21-25) mmol/L ABG Total CO2 (19-24) mmol/L ABG O2 Saturation (94-97) % ABG Hematocrit 32 L (34.0-46.0) % ABG Potassium (3.4-4.5) mmol/L Potassium (3.5-5.1) mmol/L Chloride (98-107) mmol/L Carbon Dioxide (22-30) mmol/L BUN (9-20) mg/dL Creatinine (0.66-1.25) mg/dL Glucose (74-99) mg/dL POC Glucose (mg/dL) 193 H 129 H (75-99) mg/dL Hemoglobin A1c (4.2-6.1) % Calcium (8.4-10.2) mg/dL Magnesium (1.6-2.3) mg/dL AST (17-59) U/L Alkaline Phosphatase (38-126) U/L CK-MB (CK-2) (0.0-2.4) ng/mL Troponin I (0.000-0.034) ng/mL Total Protein (6.3-8.2) g/dL Albumin (3.5-5.0) g/dL Triglycerides (<150) mg/dL HDL Cholesterol (40-60) mg/dL TSH (0.465-4.680) mIU/L Arterial Blood Potassium (3.4-4.5) mmol/L Urine Protein (Negative) Urine Bilirubin (Negative) Crossmatch 09/15/16 09/15/16 09/15/16 Range/Units 22:30 22:30 22:30 WBC 13.2 H (3.8-10.6) k/uL RBC 2.93 L (4.30-5.90) m/uL Hgb 8.6 L D (13.0-17.5) gm/dL Hct 26.2 L (39.0-53.0) % Neutrophils # 11.5 H (1.3-7.7) k/uL Lymphocytes # (1.0-4.8) k/uL PT 13.3 H (9.0-12.0) sec APTT 32.3 H (22.0-30.0) sec ABG pH (7.35-7.45) ABG pCO2 (35-45) mmHg ABG pO2 (83-108) mmHg ABG HCO3 (21-25) mmol/L ABG Total CO2 (19-24) mmol/L ABG O2 Saturation (94-97) % ABG Hematocrit (34.0-46.0) % ABG Potassium (3.4-4.5) mmol/L Potassium (3.5-5.1) mmol/L Chloride 112 H (98-107) mmol/L Carbon Dioxide (22-30) mmol/L BUN 41 H (9-20) mg/dL Creatinine 1.78 H (0.66-1.25) mg/dL Glucose 108 H (74-99) mg/dL POC Glucose (mg/dL) (75-99) mg/dL Hemoglobin A1c (4.2-6.1) % Calcium 7.5 L (8.4-10.2) mg/dL Magnesium 2.9 H (1.6-2.3) mg/dL AST (17-59) U/L Alkaline Phosphatase 30 L (38-126) U/L CK-MB (CK-2) (0.0-2.4) ng/mL Troponin I (0.000-0.034) ng/mL Total Protein 4.8 L (6.3-8.2) g/dL Albumin 3.2 L (3.5-5.0) g/dL Triglycerides (<150) mg/dL HDL Cholesterol (40-60) mg/dL TSH (0.465-4.680) mIU/L Arterial Blood Potassium (3.4-4.5) mmol/L Urine Protein (Negative) Urine Bilirubin (Negative) Crossmatch 09/15/16 09/15/16 09/16/16 Range/Units 22:59 23:25 00:57 WBC (3.8-10.6) k/uL RBC (4.30-5.90) m/uL Hgb (13.0-17.5) gm/dL Hct (39.0-53.0) % Neutrophils # (1.3-7.7) k/uL Lymphocytes # (1.0-4.8) k/uL PT (9.0-12.0) sec APTT (22.0-30.0) sec ABG pH (7.35-7.45) ABG pCO2 (35-45) mmHg ABG pO2 157 H (83-108) mmHg ABG HCO3 (21-25) mmol/L ABG Total CO2 25 H (19-24) mmol/L ABG O2 Saturation 99.0 H (94-97) % ABG Hematocrit (34.0-46.0) % ABG Potassium (3.4-4.5) mmol/L Potassium (3.5-5.1) mmol/L Chloride (98-107) mmol/L Carbon Dioxide (22-30) mmol/L BUN (9-20) mg/dL Creatinine (0.66-1.25) mg/dL Glucose (74-99) mg/dL POC Glucose (mg/dL) 109 H 121 H (75-99) mg/dL Hemoglobin A1c (4.2-6.1) % Calcium (8.4-10.2) mg/dL Magnesium (1.6-2.3) mg/dL AST (17-59) U/L Alkaline Phosphatase (38-126) U/L CK-MB (CK-2) (0.0-2.4) ng/mL Troponin I (0.000-0.034) ng/mL Total Protein (6.3-8.2) g/dL Albumin (3.5-5.0) g/dL Triglycerides (<150) mg/dL HDL Cholesterol (40-60) mg/dL TSH (0.465-4.680) mIU/L Arterial Blood Potassium (3.4-4.5) mmol/L Urine Protein (Negative) Urine Bilirubin (Negative) Crossmatch 09/16/16 09/16/16 09/16/16 Range/Units 02:05 03:04 04:00 WBC 14.6 H (3.8-10.6) k/uL RBC 2.96 L (4.30-5.90) m/uL Hgb 8.4 L (13.0-17.5) gm/dL Hct 27.3 L (39.0-53.0) % Neutrophils # 13.3 H (1.3-7.7) k/uL Lymphocytes # 0.6 L (1.0-4.8) k/uL PT (9.0-12.0) sec APTT (22.0-30.0) sec ABG pH (7.35-7.45) ABG pCO2 (35-45) mmHg ABG pO2 (83-108) mmHg ABG HCO3 (21-25) mmol/L ABG Total CO2 (19-24) mmol/L ABG O2 Saturation (94-97) % ABG Hematocrit (34.0-46.0) % ABG Potassium (3.4-4.5) mmol/L Potassium (3.5-5.1) mmol/L Chloride (98-107) mmol/L Carbon Dioxide (22-30) mmol/L BUN (9-20) mg/dL Creatinine (0.66-1.25) mg/dL Glucose (74-99) mg/dL POC Glucose (mg/dL) 154 H 194 H (75-99) mg/dL Hemoglobin A1c (4.2-6.1) % Calcium (8.4-10.2) mg/dL Magnesium (1.6-2.3) mg/dL AST (17-59) U/L Alkaline Phosphatase (38-126) U/L CK-MB (CK-2) (0.0-2.4) ng/mL Troponin I (0.000-0.034) ng/mL Total Protein (6.3-8.2) g/dL Albumin (3.5-5.0) g/dL Triglycerides (<150) mg/dL HDL Cholesterol (40-60) mg/dL TSH (0.465-4.680) mIU/L Arterial Blood Potassium (3.4-4.5) mmol/L Urine Protein (Negative) Urine Bilirubin (Negative) Crossmatch 09/16/16 09/16/16 09/16/16 Range/Units 04:00 04:00 05:05 WBC (3.8-10.6) k/uL RBC (4.30-5.90) m/uL Hgb (13.0-17.5) gm/dL Hct (39.0-53.0) % Neutrophils # (1.3-7.7) k/uL Lymphocytes # (1.0-4.8) k/uL PT (9.0-12.0) sec APTT (22.0-30.0) sec ABG pH (7.35-7.45) ABG pCO2 (35-45) mmHg ABG pO2 (83-108) mmHg ABG HCO3 (21-25) mmol/L ABG Total CO2 (19-24) mmol/L ABG O2 Saturation (94-97) % ABG Hematocrit (34.0-46.0) % ABG Potassium (3.4-4.5) mmol/L Potassium 5.2 H (3.5-5.1) mmol/L Chloride 113 H (98-107) mmol/L Carbon Dioxide 21 L (22-30) mmol/L BUN 40 H (9-20) mg/dL Creatinine 2.00 H (0.66-1.25) mg/dL Glucose 172 H (74-99) mg/dL POC Glucose (mg/dL) 200 H 189 H (75-99) mg/dL Hemoglobin A1c (4.2-6.1) % Calcium 7.9 L (8.4-10.2) mg/dL Magnesium 2.6 H (1.6-2.3) mg/dL AST 75 H (17-59) U/L Alkaline Phosphatase 37 L (38-126) U/L CK-MB (CK-2) (0.0-2.4) ng/mL Troponin I (0.000-0.034) ng/mL Total Protein 4.5 L (6.3-8.2) g/dL Albumin 3.1 L (3.5-5.0) g/dL Triglycerides (<150) mg/dL HDL Cholesterol (40-60) mg/dL TSH (0.465-4.680) mIU/L Arterial Blood Potassium (3.4-4.5) mmol/L Urine Protein (Negative) Urine Bilirubin (Negative) Crossmatch 09/16/16 09/16/16 09/16/16 Range/Units 05:35 05:59 07:07 WBC (3.8-10.6) k/uL RBC (4.30-5.90) m/uL Hgb (13.0-17.5) gm/dL Hct (39.0-53.0) % Neutrophils # (1.3-7.7) k/uL Lymphocytes # (1.0-4.8) k/uL PT (9.0-12.0) sec APTT (22.0-30.0) sec ABG pH 7.47 H (7.35-7.45) ABG pCO2 30 L (35-45) mmHg ABG pO2 82 L (83-108) mmHg ABG HCO3 (21-25) mmol/L ABG Total CO2 (19-24) mmol/L ABG O2 Saturation (94-97) % ABG Hematocrit (34.0-46.0) % ABG Potassium (3.4-4.5) mmol/L Potassium (3.5-5.1) mmol/L Chloride (98-107) mmol/L Carbon Dioxide (22-30) mmol/L BUN (9-20) mg/dL Creatinine (0.66-1.25) mg/dL Glucose (74-99) mg/dL POC Glucose (mg/dL) 166 H 164 H (75-99) mg/dL Hemoglobin A1c (4.2-6.1) % Calcium (8.4-10.2) mg/dL Magnesium (1.6-2.3) mg/dL AST (17-59) U/L Alkaline Phosphatase (38-126) U/L CK-MB (CK-2) (0.0-2.4) ng/mL Troponin I (0.000-0.034) ng/mL Total Protein (6.3-8.2) g/dL Albumin (3.5-5.0) g/dL Triglycerides (<150) mg/dL HDL Cholesterol (40-60) mg/dL TSH (0.465-4.680) mIU/L Arterial Blood Potassium (3.4-4.5) mmol/L Urine Protein (Negative) Urine Bilirubin (Negative) Crossmatch 09/16/16 09/16/16 09/16/16 Range/Units 08:04 09:01 09:59 WBC (3.8-10.6) k/uL RBC (4.30-5.90) m/uL Hgb (13.0-17.5) gm/dL Hct (39.0-53.0) % Neutrophils # (1.3-7.7) k/uL Lymphocytes # (1.0-4.8) k/uL PT (9.0-12.0) sec APTT (22.0-30.0) sec ABG pH (7.35-7.45) ABG pCO2 (35-45) mmHg ABG pO2 (83-108) mmHg ABG HCO3 (21-25) mmol/L ABG Total CO2 (19-24) mmol/L ABG O2 Saturation (94-97) % ABG Hematocrit (34.0-46.0) % ABG Potassium (3.4-4.5) mmol/L Potassium (3.5-5.1) mmol/L Chloride (98-107) mmol/L Carbon Dioxide (22-30) mmol/L BUN (9-20) mg/dL Creatinine (0.66-1.25) mg/dL Glucose (74-99) mg/dL POC Glucose (mg/dL) 132 H 120 H 118 H (75-99) mg/dL Hemoglobin A1c (4.2-6.1) % Calcium (8.4-10.2) mg/dL Magnesium (1.6-2.3) mg/dL AST (17-59) U/L Alkaline Phosphatase (38-126) U/L CK-MB (CK-2) (0.0-2.4) ng/mL Troponin I (0.000-0.034) ng/mL Total Protein (6.3-8.2) g/dL Albumin (3.5-5.0) g/dL Triglycerides (<150) mg/dL HDL Cholesterol (40-60) mg/dL TSH (0.465-4.680) mIU/L Arterial Blood Potassium (3.4-4.5) mmol/L Urine Protein (Negative) Urine Bilirubin (Negative) Crossmatch Microbiology - Last 24 Hours (Table) 09/15/16 13:00 Urine Culture - Preliminary Urine,Catheterized Assessment and Plan Plan: Assessment: #1. Nonoliguric acute kidney injury secondary to an secondary to hemodynamic instability and acute NH. Patient also received contrast dye from cardiac catheterization in September 15. Creatinine up to 2.0 today. #2. Chronic kidney disease stage III secondary to diabetic kidney disease with baseline creatinine near 1.5. #3. Metabolic acidosis secondary to acute kidney injury. #4. Volume overload. Improved. #5. Coronary artery disease status post cardiac catheterization and emergent CABG on September 15. #6. Hyperkalemia related to acute kidney injury. Lactated Ringer's also richer and potassium compared to Plan: I will change LR to normal saline at 50 mL an hour Avoid nephrotoxic agents and hypotensive episodes. Hold lisinopril for now. Wean FiO2. Continue to monitor renal function and urine output. Repeat electrolytes in the morning.
[2016-09-16 11:11] LABS: ABG HCO3 21 mmol/L (21-25); ABG PCO2 28 mmHg (35-45); ABG PH 7.48 (7.35-7.45); ABG PO2 92 mmHg (83-108); ABG TCO2 22 mmol/L (19-24)
[2016-09-16 11:14] LABS: Glucose,Whole Blood 114 mg/dL (75-99)
[2016-09-16] MEDS: METOPROLOL TARTRATE 12.5 MG TAB PO SCH ×2 (11:41→21:55)
[2016-09-16] MEDS: CLOPIDOGREL 75 MG TAB PO SCH (11:41)
[2016-09-16] MEDS: ASPIRIN 325 MG TAB PO SCH (11:41)
[2016-09-16] MEDS: PANTOPRAZOLE 40 MG/10 ML VIAL IVP SCH (11:42)
[2016-09-16] MEDS: SODIUM CHLORIDE 0.9% 1,000 ML IV SCH (11:42)
--- NOTE | 2016-09-16 12:00 | P.PN ---
Subjective 61-year-old male one of my office patient of known for long time with past medical history of CVA, PAD, CAD, COPD, chronic smoking, diabetes, chronic neuropathy and stage III kidney disease who was the hospital last in September 2015 for CVA. Patient has been doing well his blood sugar has been slightly elevated. Patient went to sleep was feeling well he woke up around 2:00 after midnight gasping for air having significant shortness of breath with mild tightness and pressure with mild cold sweat than slight wheezes and cough. Patient ended up coming to the emergency department at [facility] where was seen and evaluated surprisingly his chest x-ray showed sign of pulmonary edema first EKGs shows slight T waves inversion second EKG had mild change as well and his troponin continued to be mildly elevated. Patient was diagnosed with acute pulmonary edema secondary to congestive heart failure and possible from acute currently syndrome. Patient risk factor of having coronary artery disease extremely high at the time. Patient will be seen cardiology and possible need for an intervention with heart catheter. His chronic kidney disease with the current creatinine is quite bit elevated will involve nephrology diuresis patient and add Nitrol hopefully patient be more stable at this point and I hope creatinine will improve enough to allow him to go for heart catheter when he is ready. 09/16: The patient had worsening dyspnea and flash pulmonary edema. He underwent a cardiac catheterization which revealed more than 90% diffuse left main stenosis with moderate stenosis of the right coronary artery with some collaterals through the septals to the left system. He underwent an emergent CABG and required placement of a intra aortic balloon pump, this was placed by Dr. Cowan in the crime lab analyst. 2-D echo shows ejection fraction of 30% with no significant valvular abnormality. He is currently intubated and and is is on levophed and a primacor drip. He is also being followed by nephrology for his chronic kidney disease stage III. BUN 41, creatinine 1.78. Last chest x-ray showed vascular congestion and mild edema left basilar airspace disease, improving postoperative changes. The patient is also being followed by pulmonology. Objective - Vital Signs Vital signs: Vital Signs Temp 99.3 F 09/16/16 08:00 Pulse 115 H 09/16/16 10:00 Resp 21 09/16/16 09:00 BP 110/64 09/15/16 11:26 Pulse Ox 97 09/16/16 10:00 Intake & Output 09/15/16 09/16/16 09/16/16 18:59 06:59 18:59 Intake Total 450 1118.183 617.111 Output Total 550 4301 490 Balance -100 -3182.817 127.111 Weight 88.9 kg 88.9 kg Intake: IV 450 863.6 392.2 ACETAMINOPHEN IV (For NPO 200 ) 1,000 mg In Empty Bag 1 bag @ 400 mls/hr IVPB Q6HR [facility] Rx#:[id number] CO/CI 100 50 Lactated Ringers 1,000 ml 330 200 @ 50 mls/hr IV .Q20H [facility] Rx#:[id number] Nitroglycerin-D5w Pmx 50 12.0 mg In Dextrose/Water 1 250ml.bag @ 5 MCG/MIN 1.5 mls/hr IV .Q24H [facility] Rx#: [id number] Pressure Bag 72 36 Primacor 49.6 6.2 ceFAZolin 2 gm In Sodium 100 100 Chloride 0.9% 100 ml @ 100 mls/hr IVPB Q8HR [facility] Rx#:[id number] Intake, IV Titration 49.583 224.911 Amount Calcium Gluconate 1,000 100 mg In Sodium Chloride 0.9 % 100 ml @ 100 mls/hr IVPB ONCE [facility] Rx#: [id number] Dexmedetomidine in 0.9 % 5.583 45.094 NaCl 400 mcg In Empty Bag 1 bag @ Titrate IV .Q0M [facility] Rx#:[id number] Insulin Regular 100 unit 16.638 27.786 In Sodium Chloride 0.9% 100 ml @ Per Protocol IV .Q0M [facility] Rx#:[id number] Norepinephrin 16 mg-0.9% 52.031 Ns Pmx 16 mg In 250 ml @ Titrate IV .Q0M [facility] Rx#: [id number] Propofol 500 mg In Empty 27.362 Bag 1 bag @ Titrate IV . Q0M [facility] Rx#:[id number] Blood Product 205 Platelet Pheresis Acda2 205 Unit [id number] Platelet Pheresis Acda3 0 Unit [id number] Output: Chest Tube Drainage 396 130 Bilateral Mediastinal 291 100 Left Pleural 105 30 Drainage 15 Left [place] 15 Urine 550 1905 345 Estimated Blood Loss 1999 Other: Voiding Method Indwelling Catheter Indwelling Catheter # Voids 1 ABP, PAP, CO, CI - Last Documented Arterial Blood Pressure 95/59 Pulmonary Artery Pressure 33/21 Cardiac Output 7.6 Cardiac Index 4.0 - Exam - Constitutional General appearance: no average body habitus, cooperative, disheveled, no mild distress, no morbidly obese, no acute distress, no obese, no severe distress, no thin - EENT Eyes: abnormal pupil, no anicteric sclerae, no disc margins sharp, no edentulous , no EOMI, no PERRLA, no fundus normal, no photophobia, no dentition normal, no poor dentition, no ptosis, no scleral icterus, normal appearance ENT: hard of hearing, no hearing grossly normal, no NA/AT, normal oropharynx, no other, no pharyngeal erythema, no thrush, no tonsillar exudates, no tonsillar swelling Ears: bilateral: normal - Neck Neck: no lymphadenopathy, normal ROM, no other, no rigidity, no stridor, no thyromegaly Carotids: bilateral: upstroke normal Thyroid: bilateral: normal size - Respiratory Respiratory: bilateral: diminished, dullness, rales, rhonchi, wheezing - Cardiovascular Rhythm: regular Heart sounds: normal: S1, S2 Abnormal Heart Sounds: systolic murmur, S3 Gallop - Gastrointestinal General gastrointestinal: no absent bowel sounds, decreased bowel sounds, no distended, no hepatomegaly, no hyperactive bowel sounds, normal bowel sounds, no organomegaly, no rigid, no scaphoid, soft, no splenomegaly, no tenderness, no umbilical hernia, no ventral hernia - Integumentary Integumentary: no calor, no cellulitis, no cyanotic, no decreased turgor, no flushed, no jaundiced, normal, no normal turgor, pale, rash, no ulcer - Neurologic Neurologic: CNII-XII intact - Musculoskeletal Musculoskeletal: no gait normal, generalized weakness, no strength equal bilaterally, no right sided weakness, no left sided weakness - Psychiatric Psychiatric: A&O x's 3, no appropriate affect, no intact judgment & insight - Labs CBC & Chem 7: 09/17/16 04:55 09/17/16 04:55 Labs: Abnormal Lab Results - Last 24 Hours (Table) 09/15/16 09/15/16 09/15/16 Range/Units 10:51 12:45 12:45 WBC (3.8-10.6) k/uL RBC (4.30-5.90) m/uL Hgb (13.0-17.5) gm/dL Hct (39.0-53.0) % Neutrophils # (1.3-7.7) k/uL Lymphocytes # (1.0-4.8) k/uL PT (9.0-12.0) sec APTT (22.0-30.0) sec ABG pH (7.35-7.45) ABG pCO2 (35-45) mmHg ABG pO2 (83-108) mmHg ABG HCO3 (21-25) mmol/L ABG Total CO2 (19-24) mmol/L ABG O2 Saturation (94-97) % ABG Hematocrit (34.0-46.0) % ABG Potassium (3.4-4.5) mmol/L Potassium (3.5-5.1) mmol/L Chloride (98-107) mmol/L Carbon Dioxide (22-30) mmol/L BUN (9-20) mg/dL Creatinine (0.66-1.25) mg/dL Glucose (74-99) mg/dL POC Glucose (mg/dL) (75-99) mg/dL Hemoglobin A1c 7.3 H (4.2-6.1) % Calcium (8.4-10.2) mg/dL Magnesium (1.6-2.3) mg/dL AST (17-59) U/L Alkaline Phosphatase (38-126) U/L CK-MB (CK-2) 6.3 H* (0.0-2.4) ng/mL Troponin I 0.936 H* (0.000-0.034) ng/mL Total Protein (6.3-8.2) g/dL Albumin (3.5-5.0) g/dL Triglycerides 356 H (<150) mg/dL HDL Cholesterol 29 L (40-60) mg/dL TSH 0.383 L (0.465-4.680) mIU/L Arterial Blood Potassium (3.4-4.5) mmol/L Urine Protein (Negative) Urine Bilirubin (Negative) Crossmatch 09/15/16 09/15/16 09/15/16 Range/Units 12:45 13:00 15:02 WBC (3.8-10.6) k/uL RBC (4.30-5.90) m/uL Hgb (13.0-17.5) gm/dL Hct (39.0-53.0) % Neutrophils # (1.3-7.7) k/uL Lymphocytes # (1.0-4.8) k/uL PT (9.0-12.0) sec APTT (22.0-30.0) sec ABG pH (7.35-7.45) ABG pCO2 (35-45) mmHg ABG pO2 (83-108) mmHg ABG HCO3 (21-25) mmol/L ABG Total CO2 (19-24) mmol/L ABG O2 Saturation (94-97) % ABG Hematocrit (34.0-46.0) % ABG Potassium (3.4-4.5) mmol/L Potassium (3.5-5.1) mmol/L Chloride (98-107) mmol/L Carbon Dioxide (22-30) mmol/L BUN (9-20) mg/dL Creatinine (0.66-1.25) mg/dL Glucose (74-99) mg/dL POC Glucose (mg/dL) 142 H (75-99) mg/dL Hemoglobin A1c (4.2-6.1) % Calcium (8.4-10.2) mg/dL Magnesium (1.6-2.3) mg/dL AST (17-59) U/L Alkaline Phosphatase (38-126) U/L CK-MB (CK-2) (0.0-2.4) ng/mL Troponin I (0.000-0.034) ng/mL Total Protein (6.3-8.2) g/dL Albumin (3.5-5.0) g/dL Triglycerides (<150) mg/dL HDL Cholesterol (40-60) mg/dL TSH (0.465-4.680) mIU/L Arterial Blood Potassium (3.4-4.5) mmol/L Urine Protein Trace H (Negative) Urine Bilirubin 1+ H (Negative) Crossmatch See Detail 09/15/16 09/15/16 09/15/16 Range/Units 15:02 17:08 17:09 WBC (3.8-10.6) k/uL RBC (4.30-5.90) m/uL Hgb (13.0-17.5) gm/dL Hct (39.0-53.0) % Neutrophils # (1.3-7.7) k/uL Lymphocytes # (1.0-4.8) k/uL PT (9.0-12.0) sec APTT (22.0-30.0) sec ABG pH 7.25 L (7.35-7.45) ABG pCO2 46 H (35-45) mmHg ABG pO2 133 H (83-108) mmHg ABG HCO3 19 L 19 L (21-25) mmol/L ABG Total CO2 (19-24) mmol/L ABG O2 Saturation 98.5 H (94-97) % ABG Hematocrit (34.0-46.0) % ABG Potassium 4.6 H 4.9 H (3.4-4.5) mmol/L Potassium (3.5-5.1) mmol/L Chloride (98-107) mmol/L Carbon Dioxide (22-30) mmol/L BUN (9-20) mg/dL Creatinine (0.66-1.25) mg/dL Glucose (74-99) mg/dL POC Glucose (mg/dL) 145 H (75-99) mg/dL Hemoglobin A1c (4.2-6.1) % Calcium (8.4-10.2) mg/dL Magnesium (1.6-2.3) mg/dL AST (17-59) U/L Alkaline Phosphatase (38-126) U/L CK-MB (CK-2) (0.0-2.4) ng/mL Troponin I (0.000-0.034) ng/mL Total Protein (6.3-8.2) g/dL Albumin (3.5-5.0) g/dL Triglycerides (<150) mg/dL HDL Cholesterol (40-60) mg/dL TSH (0.465-4.680) mIU/L Arterial Blood Potassium 4.6 H 4.9 H (3.4-4.5) mmol/L Urine Protein (Negative) Urine Bilirubin (Negative) Crossmatch 09/15/16 09/15/16 09/15/16 Range/Units 18:09 18:09 18:48 WBC (3.8-10.6) k/uL RBC (4.30-5.90) m/uL Hgb (13.0-17.5) gm/dL Hct (39.0-53.0) % Neutrophils # (1.3-7.7) k/uL Lymphocytes # (1.0-4.8) k/uL PT (9.0-12.0) sec APTT (22.0-30.0) sec ABG pH (7.35-7.45) ABG pCO2 (35-45) mmHg ABG pO2 >420 H (83-108) mmHg ABG HCO3 (21-25) mmol/L ABG Total CO2 (19-24) mmol/L ABG O2 Saturation 100.0 H (94-97) % ABG Hematocrit 33 L (34.0-46.0) % ABG Potassium 4.7 H (3.4-4.5) mmol/L Potassium (3.5-5.1) mmol/L Chloride (98-107) mmol/L Carbon Dioxide (22-30) mmol/L BUN (9-20) mg/dL Creatinine (0.66-1.25) mg/dL Glucose (74-99) mg/dL POC Glucose (mg/dL) 163 H 351 H (75-99) mg/dL Hemoglobin A1c (4.2-6.1) % Calcium (8.4-10.2) mg/dL Magnesium (1.6-2.3) mg/dL AST (17-59) U/L Alkaline Phosphatase (38-126) U/L CK-MB (CK-2) (0.0-2.4) ng/mL Troponin I (0.000-0.034) ng/mL Total Protein (6.3-8.2) g/dL Albumin (3.5-5.0) g/dL Triglycerides (<150) mg/dL HDL Cholesterol (40-60) mg/dL TSH (0.465-4.680) mIU/L Arterial Blood Potassium 4.7 H (3.4-4.5) mmol/L Urine Protein (Negative) Urine Bilirubin (Negative) Crossmatch 09/15/16 09/15/16 09/15/16 Range/Units 18:48 19:14 19:18 WBC (3.8-10.6) k/uL RBC (4.30-5.90) m/uL Hgb (13.0-17.5) gm/dL Hct (39.0-53.0) % Neutrophils # (1.3-7.7) k/uL Lymphocytes # (1.0-4.8) k/uL PT (9.0-12.0) sec APTT (22.0-30.0) sec ABG pH 7.27 L 7.30 L (7.35-7.45) ABG pCO2 51 H (35-45) mmHg ABG pO2 274 H 326 H (83-108) mmHg ABG HCO3 (21-25) mmol/L ABG Total CO2 (19-24) mmol/L ABG O2 Saturation 99.8 H 99.9 H (94-97) % ABG Hematocrit 31 L 30 L (34.0-46.0) % ABG Potassium 7.6 H* 7.4 H* (3.4-4.5) mmol/L Potassium (3.5-5.1) mmol/L Chloride (98-107) mmol/L Carbon Dioxide (22-30) mmol/L BUN (9-20) mg/dL Creatinine (0.66-1.25) mg/dL Glucose (74-99) mg/dL POC Glucose (mg/dL) 342 H (75-99) mg/dL Hemoglobin A1c (4.2-6.1) % Calcium (8.4-10.2) mg/dL Magnesium (1.6-2.3) mg/dL AST (17-59) U/L Alkaline Phosphatase (38-126) U/L CK-MB (CK-2) (0.0-2.4) ng/mL Troponin I (0.000-0.034) ng/mL Total Protein (6.3-8.2) g/dL Albumin (3.5-5.0) g/dL Triglycerides (<150) mg/dL HDL Cholesterol (40-60) mg/dL TSH (0.465-4.680) mIU/L Arterial Blood Potassium 7.6 H* 7.4 H* (3.4-4.5) mmol/L Urine Protein (Negative) Urine Bilirubin (Negative) Crossmatch 09/15/16 09/15/16 09/15/16 Range/Units 19:37 19:37 20:15 WBC (3.8-10.6) k/uL RBC (4.30-5.90) m/uL Hgb (13.0-17.5) gm/dL Hct (39.0-53.0) % Neutrophils # (1.3-7.7) k/uL Lymphocytes # (1.0-4.8) k/uL PT (9.0-12.0) sec APTT (22.0-30.0) sec ABG pH 7.34 L (7.35-7.45) ABG pCO2 (35-45) mmHg ABG pO2 314 H (83-108) mmHg ABG HCO3 (21-25) mmol/L ABG Total CO2 (19-24) mmol/L ABG O2 Saturation 99.9 H (94-97) % ABG Hematocrit 29 L (34.0-46.0) % ABG Potassium 6.7 H* (3.4-4.5) mmol/L Potassium (3.5-5.1) mmol/L Chloride (98-107) mmol/L Carbon Dioxide (22-30) mmol/L BUN (9-20) mg/dL Creatinine (0.66-1.25) mg/dL Glucose (74-99) mg/dL POC Glucose (mg/dL) 325 H 296 H (75-99) mg/dL Hemoglobin A1c (4.2-6.1) % Calcium (8.4-10.2) mg/dL Magnesium (1.6-2.3) mg/dL AST (17-59) U/L Alkaline Phosphatase (38-126) U/L CK-MB (CK-2) (0.0-2.4) ng/mL Troponin I (0.000-0.034) ng/mL Total Protein (6.3-8.2) g/dL Albumin (3.5-5.0) g/dL Triglycerides (<150) mg/dL HDL Cholesterol (40-60) mg/dL TSH (0.465-4.680) mIU/L Arterial Blood Potassium 6.7 H* (3.4-4.5) mmol/L Urine Protein (Negative) Urine Bilirubin (Negative) Crossmatch 09/15/16 09/15/16 09/15/16 Range/Units 20:15 20:42 20:43 WBC (3.8-10.6) k/uL RBC (4.30-5.90) m/uL Hgb (13.0-17.5) gm/dL Hct (39.0-53.0) % Neutrophils # (1.3-7.7) k/uL Lymphocytes # (1.0-4.8) k/uL PT (9.0-12.0) sec APTT (22.0-30.0) sec ABG pH 7.28 L 7.33 L (7.35-7.45) ABG pCO2 (35-45) mmHg ABG pO2 290 H (83-108) mmHg ABG HCO3 20 L (21-25) mmol/L ABG Total CO2 (19-24) mmol/L ABG O2 Saturation 99.9 H 97.2 H (94-97) % ABG Hematocrit 29 L 31 L (34.0-46.0) % ABG Potassium 5.5 H (3.4-4.5) mmol/L Potassium (3.5-5.1) mmol/L Chloride (98-107) mmol/L Carbon Dioxide (22-30) mmol/L BUN (9-20) mg/dL Creatinine (0.66-1.25) mg/dL Glucose (74-99) mg/dL POC Glucose (mg/dL) 254 H (75-99) mg/dL Hemoglobin A1c (4.2-6.1) % Calcium (8.4-10.2) mg/dL Magnesium (1.6-2.3) mg/dL AST (17-59) U/L Alkaline Phosphatase (38-126) U/L CK-MB (CK-2) (0.0-2.4) ng/mL Troponin I (0.000-0.034) ng/mL Total Protein (6.3-8.2) g/dL Albumin (3.5-5.0) g/dL Triglycerides (<150) mg/dL HDL Cholesterol (40-60) mg/dL TSH (0.465-4.680) mIU/L Arterial Blood Potassium 5.5 H (3.4-4.5) mmol/L Urine Protein (Negative) Urine Bilirubin (Negative) Crossmatch 09/15/16 09/15/16 09/15/16 Range/Units 21:24 21:24 22:27 WBC (3.8-10.6) k/uL RBC (4.30-5.90) m/uL Hgb (13.0-17.5) gm/dL Hct (39.0-53.0) % Neutrophils # (1.3-7.7) k/uL Lymphocytes # (1.0-4.8) k/uL PT (9.0-12.0) sec APTT (22.0-30.0) sec ABG pH (7.35-7.45) ABG pCO2 (35-45) mmHg ABG pO2 (83-108) mmHg ABG HCO3 (21-25) mmol/L ABG Total CO2 (19-24) mmol/L ABG O2 Saturation (94-97) % ABG Hematocrit 32 L (34.0-46.0) % ABG Potassium (3.4-4.5) mmol/L Potassium (3.5-5.1) mmol/L Chloride (98-107) mmol/L Carbon Dioxide (22-30) mmol/L BUN (9-20) mg/dL Creatinine (0.66-1.25) mg/dL Glucose (74-99) mg/dL POC Glucose (mg/dL) 193 H 129 H (75-99) mg/dL Hemoglobin A1c (4.2-6.1) % Calcium (8.4-10.2) mg/dL Magnesium (1.6-2.3) mg/dL AST (17-59) U/L Alkaline Phosphatase (38-126) U/L CK-MB (CK-2) (0.0-2.4) ng/mL Troponin I (0.000-0.034) ng/mL Total Protein (6.3-8.2) g/dL Albumin (3.5-5.0) g/dL Triglycerides (<150) mg/dL HDL Cholesterol (40-60) mg/dL TSH (0.465-4.680) mIU/L Arterial Blood Potassium (3.4-4.5) mmol/L Urine Protein (Negative) Urine Bilirubin (Negative) Crossmatch 09/15/16 09/15/16 09/15/16 Range/Units 22:30 22:30 22:30 WBC 13.2 H (3.8-10.6) k/uL RBC 2.93 L (4.30-5.90) m/uL Hgb 8.6 L D (13.0-17.5) gm/dL Hct 26.2 L (39.0-53.0) % Neutrophils # 11.5 H (1.3-7.7) k/uL Lymphocytes # (1.0-4.8) k/uL PT 13.3 H (9.0-12.0) sec APTT 32.3 H (22.0-30.0) sec ABG pH (7.35-7.45) ABG pCO2 (35-45) mmHg ABG pO2 (83-108) mmHg ABG HCO3 (21-25) mmol/L ABG Total CO2 (19-24) mmol/L ABG O2 Saturation (94-97) % ABG Hematocrit (34.0-46.0) % ABG Potassium (3.4-4.5) mmol/L Potassium (3.5-5.1) mmol/L Chloride 112 H (98-107) mmol/L Carbon Dioxide (22-30) mmol/L BUN 41 H (9-20) mg/dL Creatinine 1.78 H (0.66-1.25) mg/dL Glucose 108 H (74-99) mg/dL POC Glucose (mg/dL) (75-99) mg/dL Hemoglobin A1c (4.2-6.1) % Calcium 7.5 L (8.4-10.2) mg/dL Magnesium 2.9 H (1.6-2.3) mg/dL AST (17-59) U/L Alkaline Phosphatase 30 L (38-126) U/L CK-MB (CK-2) (0.0-2.4) ng/mL Troponin I (0.000-0.034) ng/mL Total Protein 4.8 L (6.3-8.2) g/dL Albumin 3.2 L (3.5-5.0) g/dL Triglycerides (<150) mg/dL HDL Cholesterol (40-60) mg/dL TSH (0.465-4.680) mIU/L Arterial Blood Potassium (3.4-4.5) mmol/L Urine Protein (Negative) Urine Bilirubin (Negative) Crossmatch 09/15/16 09/15/16 09/16/16 Range/Units 22:59 23:25 00:57 WBC (3.8-10.6) k/uL RBC (4.30-5.90) m/uL Hgb (13.0-17.5) gm/dL Hct (39.0-53.0) % Neutrophils # (1.3-7.7) k/uL Lymphocytes # (1.0-4.8) k/uL PT (9.0-12.0) sec APTT (22.0-30.0) sec ABG pH (7.35-7.45) ABG pCO2 (35-45) mmHg ABG pO2 157 H (83-108) mmHg ABG HCO3 (21-25) mmol/L ABG Total CO2 25 H (19-24) mmol/L ABG O2 Saturation 99.0 H (94-97) % ABG Hematocrit (34.0-46.0) % ABG Potassium (3.4-4.5) mmol/L Potassium (3.5-5.1) mmol/L Chloride (98-107) mmol/L Carbon Dioxide (22-30) mmol/L BUN (9-20) mg/dL Creatinine (0.66-1.25) mg/dL Glucose (74-99) mg/dL POC Glucose (mg/dL) 109 H 121 H (75-99) mg/dL Hemoglobin A1c (4.2-6.1) % Calcium (8.4-10.2) mg/dL Magnesium (1.6-2.3) mg/dL AST (17-59) U/L Alkaline Phosphatase (38-126) U/L CK-MB (CK-2) (0.0-2.4) ng/mL Troponin I (0.000-0.034) ng/mL Total Protein (6.3-8.2) g/dL Albumin (3.5-5.0) g/dL Triglycerides (<150) mg/dL HDL Cholesterol (40-60) mg/dL TSH (0.465-4.680) mIU/L Arterial Blood Potassium (3.4-4.5) mmol/L Urine Protein (Negative) Urine Bilirubin (Negative) Crossmatch 09/16/16 09/16/16 09/16/16 Range/Units 02:05 03:04 04:00 WBC 14.6 H (3.8-10.6) k/uL RBC 2.96 L (4.30-5.90) m/uL Hgb 8.4 L (13.0-17.5) gm/dL Hct 27.3 L (39.0-53.0) % Neutrophils # 13.3 H (1.3-7.7) k/uL Lymphocytes # 0.6 L (1.0-4.8) k/uL PT (9.0-12.0) sec APTT (22.0-30.0) sec ABG pH (7.35-7.45) ABG pCO2 (35-45) mmHg ABG pO2 (83-108) mmHg ABG HCO3 (21-25) mmol/L ABG Total CO2 (19-24) mmol/L ABG O2 Saturation (94-97) % ABG Hematocrit (34.0-46.0) % ABG Potassium (3.4-4.5) mmol/L Potassium (3.5-5.1) mmol/L Chloride (98-107) mmol/L Carbon Dioxide (22-30) mmol/L BUN (9-20) mg/dL Creatinine (0.66-1.25) mg/dL Glucose (74-99) mg/dL POC Glucose (mg/dL) 154 H 194 H (75-99) mg/dL Hemoglobin A1c (4.2-6.1) % Calcium (8.4-10.2) mg/dL Magnesium (1.6-2.3) mg/dL AST (17-59) U/L Alkaline Phosphatase (38-126) U/L CK-MB (CK-2) (0.0-2.4) ng/mL Troponin I (0.000-0.034) ng/mL Total Protein (6.3-8.2) g/dL Albumin (3.5-5.0) g/dL Triglycerides (<150) mg/dL HDL Cholesterol (40-60) mg/dL TSH (0.465-4.680) mIU/L Arterial Blood Potassium (3.4-4.5) mmol/L Urine Protein (Negative) Urine Bilirubin (Negative) Crossmatch 09/16/16 09/16/16 09/16/16 Range/Units 04:00 04:00 05:05 WBC (3.8-10.6) k/uL RBC (4.30-5.90) m/uL Hgb (13.0-17.5) gm/dL Hct (39.0-53.0) % Neutrophils # (1.3-7.7) k/uL Lymphocytes # (1.0-4.8) k/uL PT (9.0-12.0) sec APTT (22.0-30.0) sec ABG pH (7.35-7.45) ABG pCO2 (35-45) mmHg ABG pO2 (83-108) mmHg ABG HCO3 (21-25) mmol/L ABG Total CO2 (19-24) mmol/L ABG O2 Saturation (94-97) % ABG Hematocrit (34.0-46.0) % ABG Potassium (3.4-4.5) mmol/L Potassium 5.2 H (3.5-5.1) mmol/L Chloride 113 H (98-107) mmol/L Carbon Dioxide 21 L (22-30) mmol/L BUN 40 H (9-20) mg/dL Creatinine 2.00 H (0.66-1.25) mg/dL Glucose 172 H (74-99) mg/dL POC Glucose (mg/dL) 200 H 189 H (75-99) mg/dL Hemoglobin A1c (4.2-6.1) % Calcium 7.9 L (8.4-10.2) mg/dL Magnesium 2.6 H (1.6-2.3) mg/dL AST 75 H (17-59) U/L Alkaline Phosphatase 37 L (38-126) U/L CK-MB (CK-2) (0.0-2.4) ng/mL Troponin I (0.000-0.034) ng/mL Total Protein 4.5 L (6.3-8.2) g/dL Albumin 3.1 L (3.5-5.0) g/dL Triglycerides (<150) mg/dL HDL Cholesterol (40-60) mg/dL TSH (0.465-4.680) mIU/L Arterial Blood Potassium (3.4-4.5) mmol/L Urine Protein (Negative) Urine Bilirubin (Negative) Crossmatch 09/16/16 09/16/16 09/16/16 Range/Units 05:35 05:59 07:07 WBC (3.8-10.6) k/uL RBC (4.30-5.90) m/uL Hgb (13.0-17.5) gm/dL Hct (39.0-53.0) % Neutrophils # (1.3-7.7) k/uL Lymphocytes # (1.0-4.8) k/uL PT (9.0-12.0) sec APTT (22.0-30.0) sec ABG pH 7.47 H (7.35-7.45) ABG pCO2 30 L (35-45) mmHg ABG pO2 82 L (83-108) mmHg ABG HCO3 (21-25) mmol/L ABG Total CO2 (19-24) mmol/L ABG O2 Saturation (94-97) % ABG Hematocrit (34.0-46.0) % ABG Potassium (3.4-4.5) mmol/L Potassium (3.5-5.1) mmol/L Chloride (98-107) mmol/L Carbon Dioxide (22-30) mmol/L BUN (9-20) mg/dL Creatinine (0.66-1.25) mg/dL Glucose (74-99) mg/dL POC Glucose (mg/dL) 166 H 164 H (75-99) mg/dL Hemoglobin A1c (4.2-6.1) % Calcium (8.4-10.2) mg/dL Magnesium (1.6-2.3) mg/dL AST (17-59) U/L Alkaline Phosphatase (38-126) U/L CK-MB (CK-2) (0.0-2.4) ng/mL Troponin I (0.000-0.034) ng/mL Total Protein (6.3-8.2) g/dL Albumin (3.5-5.0) g/dL Triglycerides (<150) mg/dL HDL Cholesterol (40-60) mg/dL TSH (0.465-4.680) mIU/L Arterial Blood Potassium (3.4-4.5) mmol/L Urine Protein (Negative) Urine Bilirubin (Negative) Crossmatch 09/16/16 09/16/16 09/16/16 Range/Units 08:04 09:01 09:59 WBC (3.8-10.6) k/uL RBC (4.30-5.90) m/uL Hgb (13.0-17.5) gm/dL Hct (39.0-53.0) % Neutrophils # (1.3-7.7) k/uL Lymphocytes # (1.0-4.8) k/uL PT (9.0-12.0) sec APTT (22.0-30.0) sec ABG pH (7.35-7.45) ABG pCO2 (35-45) mmHg ABG pO2 (83-108) mmHg ABG HCO3 (21-25) mmol/L ABG Total CO2 (19-24) mmol/L ABG O2 Saturation (94-97) % ABG Hematocrit (34.0-46.0) % ABG Potassium (3.4-4.5) mmol/L Potassium (3.5-5.1) mmol/L Chloride (98-107) mmol/L Carbon Dioxide (22-30) mmol/L BUN (9-20) mg/dL Creatinine (0.66-1.25) mg/dL Glucose (74-99) mg/dL POC Glucose (mg/dL) 132 H 120 H 118 H (75-99) mg/dL Hemoglobin A1c (4.2-6.1) % Calcium (8.4-10.2) mg/dL Magnesium (1.6-2.3) mg/dL AST (17-59) U/L Alkaline Phosphatase (38-126) U/L CK-MB (CK-2) (0.0-2.4) ng/mL Troponin I (0.000-0.034) ng/mL Total Protein (6.3-8.2) g/dL Albumin (3.5-5.0) g/dL Triglycerides (<150) mg/dL HDL Cholesterol (40-60) mg/dL TSH (0.465-4.680) mIU/L Arterial Blood Potassium (3.4-4.5) mmol/L Urine Protein (Negative) Urine Bilirubin (Negative) Crossmatch 09/16/16 09/16/16 Range/Units 11:09 11:12 WBC (3.8-10.6) k/uL RBC (4.30-5.90) m/uL Hgb (13.0-17.5) gm/dL Hct (39.0-53.0) % Neutrophils # (1.3-7.7) k/uL Lymphocytes # (1.0-4.8) k/uL PT (9.0-12.0) sec APTT (22.0-30.0) sec ABG pH 7.48 H (7.35-7.45) ABG pCO2 28 L (35-45) mmHg ABG pO2 (83-108) mmHg ABG HCO3 (21-25) mmol/L ABG Total CO2 (19-24) mmol/L ABG O2 Saturation 98.0 H (94-97) % ABG Hematocrit (34.0-46.0) % ABG Potassium (3.4-4.5) mmol/L Potassium (3.5-5.1) mmol/L Chloride (98-107) mmol/L Carbon Dioxide (22-30) mmol/L BUN (9-20) mg/dL Creatinine (0.66-1.25) mg/dL Glucose (74-99) mg/dL POC Glucose (mg/dL) 114 H (75-99) mg/dL Hemoglobin A1c (4.2-6.1) % Calcium (8.4-10.2) mg/dL Magnesium (1.6-2.3) mg/dL AST (17-59) U/L Alkaline Phosphatase (38-126) U/L CK-MB (CK-2) (0.0-2.4) ng/mL Troponin I (0.000-0.034) ng/mL Total Protein (6.3-8.2) g/dL Albumin (3.5-5.0) g/dL Triglycerides (<150) mg/dL HDL Cholesterol (40-60) mg/dL TSH (0.465-4.680) mIU/L Arterial Blood Potassium (3.4-4.5) mmol/L Urine Protein (Negative) Urine Bilirubin (Negative) Crossmatch Microbiology - Last 24 Hours (Table) 09/15/16 13:00 Urine Culture - Preliminary Urine,Catheterized Assessment and Plan Plan: Plan: 1 CABG secondary to acute coronary syndrome with mildly elevated troponin slight change in his EKG: patient underwent cardiac cath, required emergent CABG 2 non-STEMI with left main disease: Patient underwent emergent CABG, with balloon pump continues to be followed by cardiology. 3 acute respiratory failure status post CABG surgery: Patient is intubated. Followed by pulmonology. 4 acute pulmonary edema: Patient be continue on furosemide 40 mg IV every 8, continue Nitrol repeat chest x-ray echo and BNP in the next 24 hours. 5 acute kidney injury secondary to hemodynamic instability and acute AL status post CABG: Continue to watch BUN and creatinine closely 6 Chronic kidney disease stage III: Patient followed by nephrology. We'll continue to monitor BUN and creatinine. 7 type 2 diabetes: Patient is on insulin drip change to long and short acting 8 COPD: Continue patient on O2, DuoNeb and Pulmicort, pulmonary is consulted 9 hyperlipidemia: Remain on simvastatin 40 mg a day and TriCor 54 mg daily. 10 BPH: Continue to watch for any urinary retention. 11 chronic tobacco use and dependency: We will add nicotine patch 21 milligrams daily. 12 history of CVA: Still with slight residual. 13 hypertension: continue metoprolol GI prophylaxis: Continue patient on pantoprazole 40 mg daily. DVT prophylaxis: Patient be on heparin 5000 units continues twice a day. CODE STATUS: Full code. The above impression and plan of care have been discussed and directed by signing physician. Cathie Sprague nurse practitioner acting as scribe for signing physician.
[2016-09-16 12:05] LABS: Glucose,Whole Blood 138 mg/dL (75-99)
[2016-09-16 12:17] LABS: ABG HCO3 21 mmol/L (21-25); ABG PCO2 28 mmHg (35-45); ABG PH 7.48 (7.35-7.45); ABG PO2 101 mmHg (83-108); ABG TCO2 22 mmol/L (19-24)
--- NOTE | 2016-09-16 13:04 | PN ---
Mr. Cerna is a 60-year-old male with a history of peripheral vascular disease who presented with pulmonary edema and evidence of myocardial infarction, underwent cardiac catheterization, was found to have critical left main disease, underwent placement of intraaortic balloon pump and subsequently emergent coronary artery bypass grafting. He remains intubated and sedated. He is on no pressors and Primacor. He is in sinus mechanism. There is no evidence of ventricular ectopic activity. PHYSICAL EXAMINATION: Blood pressure 114/59 with the heart rate in the low 100s. His PA pressure is 36. He is moving all extremities. LUNGS: Clear anteriorly. HEART: Regular rate rhythm. S1, S2, no S3, no rub appreciated. ABDOMEN: Soft, positive bowel sounds. EXTREMITIES: No edema. He has an intraaortic balloon pump placed, ( ) earlier and is being tapered down. His BUN and creatinine at 40 and 2.0. Potassium 5.2. Hemoglobin of 8.4. EKG revealed sinus mechanism with T wave inversion in the anterolateral leads. IMPRESSION: 1. Status post emergent coronary artery bypass grafting with severe left main disease. 2. Cardiomyopathy, ischemic, could be related to a stunned myocardium. 3. Peripheral vascular disease. 4. Chronic tobacco use. 5. Diabetes. 6. Hyperlipidemia. RECOMMENDATIONS: From the cardiac standpoint, will continue supportive care. Wean his intraaortic balloon pump as tolerated. I am hopeful that will see improvement in his left ventricular systolic function. His peak troponin is quite low. He remains quite critical.
[2016-09-16 13:15] LABS: Glucose,Whole Blood 136 mg/dL (75-99)
[2016-09-16 14:06] LABS: Glucose,Whole Blood 124 mg/dL (75-99)
--- NOTE | 2016-09-16 14:50 | P.PCN ---
Date of Procedure: 09/16/16 Preoperative Diagnosis: Severe multivessel coronary artery disease with left main disease requiring intra-aortic balloon pump insertion Postoperative Diagnosis: Same Procedure(s) Performed: Removal of intra-aortic balloon pump Implants: Anesthesia: none Surgeon: Aundrea Whatley Indications for Procedure: This patient is a 60-year-old male who was found to have symptomatic multivessel coronary artery disease with left main disease. An intra-aortic balloon pump was placed in the Phlebotomy Manager by Dr. Cowan. He went for emergent coronary artery bypass yesterday and has done well. Today he is hemodynamically stable and is no longer in need of intra-aortic balloon pump assistance. Removal of the device was recommended. Risks, benefits, alternatives to this procedure were discussed with the patient's family by Dr. Whatley. All questions were answered. Consent was obtained. Operative Findings: Description of Procedure: The right groin was examined. There is no evidence of hematoma. The balloon pump was turned off. The pre-existing sheath and balloon were removed en yuly and artery was allowed to bleed both antegrade and retrograde for several beats. Direct pressure was held over the site for 30 minutes. There is no residual bleeding or hematoma noted. The groin itself was soft. The right lower extremity appears warm and well-perfused. There were no immediate complications. He remained hemodynamically stable with a good follow-up cardiac index of 3.9.
[2016-09-16 15:04] LABS: Glucose,Whole Blood 119 mg/dL (75-99)
[2016-09-16 16:17] LABS: Glucose,Whole Blood 116 mg/dL (75-99)
[2016-09-16] MEDS ORDERED: MAGNESIUM HYDROXIDE 2,400 MG/10 ML CUP PO PRN (16:17)
[2016-09-16] MEDS ORDERED: BISACODYL 10 MG SUPP RECTAL PRN (16:17)
[2016-09-16 16:54] LABS: Glucose,Whole Blood 113 mg/dL (75-99)
[2016-09-16] MEDS: ATORVASTATIN 40 MG TAB PO SCH (16:58)
[2016-09-16 17:56] LABS: Glucose,Whole Blood 143 mg/dL (75-99)
[2016-09-16 19:10] LABS: Glucose,Whole Blood 149 mg/dL (75-99)
[2016-09-16 19:52] LABS: Glucose,Whole Blood 138 mg/dL (75-99)
[2016-09-16 20:05] LABS: ABG Base Excess -2.7 mmol/L; ABG HCO3 20 mmol/L (21-25); ABG PCO2 27 mmHg (35-45); ABG PH 7.49 (7.35-7.45); ABG PO2 84 mmHg (83-108); ABG TCO2 21 mmol/L (19-24)
[2016-09-16 21:00] LABS: Glucose,Whole Blood 126 mg/dL (75-99)
--- NOTE | 2016-09-16 21:07 | P.PN ---
Subjective Principal diagnosis: Coronary artery disease Late entry. Patient seen and examined in the ICU with nursing staff at bedside. Patient is currently on mechanical ventilator with PEEP of 10 and 50% FiO2. ABGs are reviewed. The PEEP will be decreased to 5. The patient remains sedated. He did have an episode of agitation this morning and was breathing over the ventilator. He became alkalotic. The patient is more sedated and comfortable on the ventilator. Case is discussed with the cardiothoracic nurse practitioner. Objective - Vital Signs Vital signs: Vital Signs Temp 99.3 F 09/16/16 08:00 Pulse 111 H 09/16/16 20:10 Resp 24 09/16/16 15:59 BP 95/52 09/16/16 16:00 Pulse Ox 94 L 09/16/16 19:00 Intake & Output 09/16/16 09/16/16 09/17/16 06:59 18:59 06:59 Intake Total 3886.906 7723.031 190.098 Output Total 4301 1515 135 Balance -3182.817 497.031 55.098 Weight 88.9 kg 88.9 kg Intake: IV 863.6 1084.2 159 ACETAMINOPHEN IV (For NPO 200 100 100 ) 1,000 mg In Empty Bag 1 bag @ 400 mls/hr IVPB Q6HR [facility] Rx#:[id number] CO/CI 100 90 Lactated Ringers 1,000 ml 330 580 50 @ 50 mls/hr IV .Q20H [facility] Rx#:[id number] Nitroglycerin-D5w Pmx 50 12.0 mg In Dextrose/Water 1 250ml.bag @ 5 MCG/MIN 1.5 mls/hr IV .Q24H [facility] Rx#: [id number] Pressure Bag 72 108 9 Primacor 49.6 6.2 ceFAZolin 2 gm In Sodium 100 200 Chloride 0.9% 100 ml @ 100 mls/hr IVPB Q8HR [facility] Rx#:[id number] Intake, IV Titration 49.583 723.831 31.098 Amount Albumin Human 5% 250 ml 250 As IVPB .STK-MED [facility] Rx#: [id number] Calcium Gluconate 1,000 100 mg In Sodium Chloride 0.9 % 100 ml @ 100 mls/hr IVPB ONCE [facility] Rx#: [id number] Dexmedetomidine in 0.9 % 5.583 142.429 NaCl 400 mcg In Empty Bag 1 bag @ Titrate IV .Q0M [facility] Rx#:[id number] Insulin Regular 100 unit 16.638 52.294 5.599 In Sodium Chloride 0.9% 100 ml @ Per Protocol IV .Q0M [facility] Rx#:[id number] Milrinone-D5w Pmx 20 mg 52.122 17.733 In Dextrose/Water 1 100ml .bag @ 0.25 MCG/KG/MIN 6. 12 mls/hr IV .[id number] [facility] Rx#:[id number] Norepinephrin 16 mg-0.9% 126.986 7.766 Ns Pmx 16 mg In 250 ml @ Titrate IV .Q0M [facility] Rx#: [id number] Propofol 500 mg In Empty 27.362 Bag 1 bag @ Titrate IV . Q0M [facility] Rx#:[id number] Blood Product 205 204 Platelet Pheresis Acda2 205 Unit [id number] Platelet Pheresis Acda3 0 204 Unit [id number] Output: Chest Tube Drainage 396 370 35 Bilateral Mediastinal 291 265 25 Left Pleural 105 105 10 Drainage 30 Left Whiting 30 Urine 1905 1115 100 Estimated Blood Loss 1999 Other: Voiding Method Indwelling Catheter Indwelling Catheter # Voids 1 1 ABP, PAP, CO, CI - Last Documented Arterial Blood Pressure 108/66 Pulmonary Artery Pressure 48/29 Cardiac Output 7.4 Cardiac Index 3.9 - Exam Gen.: Patient is sedated on mechanical ventilator Cardiovascular: Regular rate and rhythm, S1/S2 Lungs: Coarse breath sounds bilaterally Abdomen: Soft nontender nondistended positive bowel sounds Extremities: + Edema - Labs CBC & Chem 7: 09/16/16 04:00 09/16/16 04:00 Labs: Abnormal Lab Results - Last 24 Hours (Table) 09/15/16 09/15/16 09/15/16 Range/Units 12:45 15:02 17:09 WBC (3.8-10.6) k/uL RBC (4.30-5.90) m/uL Hgb (13.0-17.5) gm/dL Hct (39.0-53.0) % Neutrophils # (1.3-7.7) k/uL Lymphocytes # (1.0-4.8) k/uL PT (9.0-12.0) sec APTT (22.0-30.0) sec ABG pH 7.25 L (7.35-7.45) ABG pCO2 46 H (35-45) mmHg ABG pO2 133 H (83-108) mmHg ABG HCO3 19 L 19 L (21-25) mmol/L ABG Total CO2 (19-24) mmol/L ABG O2 Saturation 98.5 H (94-97) % ABG Hematocrit (34.0-46.0) % ABG Potassium 4.6 H 4.9 H (3.4-4.5) mmol/L Potassium (3.5-5.1) mmol/L Chloride (98-107) mmol/L Carbon Dioxide (22-30) mmol/L BUN (9-20) mg/dL Creatinine (0.66-1.25) mg/dL Glucose (74-99) mg/dL POC Glucose (mg/dL) (75-99) mg/dL Calcium (8.4-10.2) mg/dL Magnesium (1.6-2.3) mg/dL AST (17-59) U/L Alkaline Phosphatase (38-126) U/L Total Protein (6.3-8.2) g/dL Albumin (3.5-5.0) g/dL Arterial Blood Potassium 4.6 H 4.9 H (3.4-4.5) mmol/L Crossmatch See Detail 09/15/16 09/15/16 09/15/16 Range/Units 18:09 18:48 19:18 WBC (3.8-10.6) k/uL RBC (4.30-5.90) m/uL Hgb (13.0-17.5) gm/dL Hct (39.0-53.0) % Neutrophils # (1.3-7.7) k/uL Lymphocytes # (1.0-4.8) k/uL PT (9.0-12.0) sec APTT (22.0-30.0) sec ABG pH 7.27 L 7.30 L (7.35-7.45) ABG pCO2 51 H (35-45) mmHg ABG pO2 >420 H 274 H 326 H (83-108) mmHg ABG HCO3 (21-25) mmol/L ABG Total CO2 (19-24) mmol/L ABG O2 Saturation 100.0 H 99.8 H 99.9 H (94-97) % ABG Hematocrit 33 L 31 L 30 L (34.0-46.0) % ABG Potassium 4.7 H 7.6 H* 7.4 H* (3.4-4.5) mmol/L Potassium (3.5-5.1) mmol/L Chloride (98-107) mmol/L Carbon Dioxide (22-30) mmol/L BUN (9-20) mg/dL Creatinine (0.66-1.25) mg/dL Glucose (74-99) mg/dL POC Glucose (mg/dL) (75-99) mg/dL Calcium (8.4-10.2) mg/dL Magnesium (1.6-2.3) mg/dL AST (17-59) U/L Alkaline Phosphatase (38-126) U/L Total Protein (6.3-8.2) g/dL Albumin (3.5-5.0) g/dL Arterial Blood Potassium 4.7 H 7.6 H* 7.4 H* (3.4-4.5) mmol/L Crossmatch 09/15/16 09/15/16 09/15/16 Range/Units 19:37 20:15 20:43 WBC (3.8-10.6) k/uL RBC (4.30-5.90) m/uL Hgb (13.0-17.5) gm/dL Hct (39.0-53.0) % Neutrophils # (1.3-7.7) k/uL Lymphocytes # (1.0-4.8) k/uL PT (9.0-12.0) sec APTT (22.0-30.0) sec ABG pH 7.34 L 7.28 L 7.33 L (7.35-7.45) ABG pCO2 (35-45) mmHg ABG pO2 314 H 290 H (83-108) mmHg ABG HCO3 20 L (21-25) mmol/L ABG Total CO2 (19-24) mmol/L ABG O2 Saturation 99.9 H 99.9 H 97.2 H (94-97) % ABG Hematocrit 29 L 29 L 31 L (34.0-46.0) % ABG Potassium 6.7 H* 5.5 H (3.4-4.5) mmol/L Potassium (3.5-5.1) mmol/L Chloride (98-107) mmol/L Carbon Dioxide (22-30) mmol/L BUN (9-20) mg/dL Creatinine (0.66-1.25) mg/dL Glucose (74-99) mg/dL POC Glucose (mg/dL) (75-99) mg/dL Calcium (8.4-10.2) mg/dL Magnesium (1.6-2.3) mg/dL AST (17-59) U/L Alkaline Phosphatase (38-126) U/L Total Protein (6.3-8.2) g/dL Albumin (3.5-5.0) g/dL Arterial Blood Potassium 6.7 H* 5.5 H (3.4-4.5) mmol/L Crossmatch 09/15/16 09/15/16 09/15/16 Range/Units 21:24 21:24 22:27 WBC (3.8-10.6) k/uL RBC (4.30-5.90) m/uL Hgb (13.0-17.5) gm/dL Hct (39.0-53.0) % Neutrophils # (1.3-7.7) k/uL Lymphocytes # (1.0-4.8) k/uL PT (9.0-12.0) sec APTT (22.0-30.0) sec ABG pH (7.35-7.45) ABG pCO2 (35-45) mmHg ABG pO2 (83-108) mmHg ABG HCO3 (21-25) mmol/L ABG Total CO2 (19-24) mmol/L ABG O2 Saturation (94-97) % ABG Hematocrit 32 L (34.0-46.0) % ABG Potassium (3.4-4.5) mmol/L Potassium (3.5-5.1) mmol/L Chloride (98-107) mmol/L Carbon Dioxide (22-30) mmol/L BUN (9-20) mg/dL Creatinine (0.66-1.25) mg/dL Glucose (74-99) mg/dL POC Glucose (mg/dL) 193 H 129 H (75-99) mg/dL Calcium (8.4-10.2) mg/dL Magnesium (1.6-2.3) mg/dL AST (17-59) U/L Alkaline Phosphatase (38-126) U/L Total Protein (6.3-8.2) g/dL Albumin (3.5-5.0) g/dL Arterial Blood Potassium (3.4-4.5) mmol/L Crossmatch 09/15/16 09/15/16 09/15/16 Range/Units 22:30 22:30 22:30 WBC 13.2 H (3.8-10.6) k/uL RBC 2.93 L (4.30-5.90) m/uL Hgb 8.6 L D (13.0-17.5) gm/dL Hct 26.2 L (39.0-53.0) % Neutrophils # 11.5 H (1.3-7.7) k/uL Lymphocytes # (1.0-4.8) k/uL PT 13.3 H (9.0-12.0) sec APTT 32.3 H (22.0-30.0) sec ABG pH (7.35-7.45) ABG pCO2 (35-45) mmHg ABG pO2 (83-108) mmHg ABG HCO3 (21-25) mmol/L ABG Total CO2 (19-24) mmol/L ABG O2 Saturation (94-97) % ABG Hematocrit (34.0-46.0) % ABG Potassium (3.4-4.5) mmol/L Potassium (3.5-5.1) mmol/L Chloride 112 H (98-107) mmol/L Carbon Dioxide (22-30) mmol/L BUN 41 H (9-20) mg/dL Creatinine 1.78 H (0.66-1.25) mg/dL Glucose 108 H (74-99) mg/dL POC Glucose (mg/dL) (75-99) mg/dL Calcium 7.5 L (8.4-10.2) mg/dL Magnesium 2.9 H (1.6-2.3) mg/dL AST (17-59) U/L Alkaline Phosphatase 30 L (38-126) U/L Total Protein 4.8 L (6.3-8.2) g/dL Albumin 3.2 L (3.5-5.0) g/dL Arterial Blood Potassium (3.4-4.5) mmol/L Crossmatch 09/15/16 09/15/16 09/16/16 Range/Units 22:59 23:25 00:57 WBC (3.8-10.6) k/uL RBC (4.30-5.90) m/uL Hgb (13.0-17.5) gm/dL Hct (39.0-53.0) % Neutrophils # (1.3-7.7) k/uL Lymphocytes # (1.0-4.8) k/uL PT (9.0-12.0) sec APTT (22.0-30.0) sec ABG pH (7.35-7.45) ABG pCO2 (35-45) mmHg ABG pO2 157 H (83-108) mmHg ABG HCO3 (21-25) mmol/L ABG Total CO2 25 H (19-24) mmol/L ABG O2 Saturation 99.0 H (94-97) % ABG Hematocrit (34.0-46.0) % ABG Potassium (3.4-4.5) mmol/L Potassium (3.5-5.1) mmol/L Chloride (98-107) mmol/L Carbon Dioxide (22-30) mmol/L BUN (9-20) mg/dL Creatinine (0.66-1.25) mg/dL Glucose (74-99) mg/dL POC Glucose (mg/dL) 109 H 121 H (75-99) mg/dL Calcium (8.4-10.2) mg/dL Magnesium (1.6-2.3) mg/dL AST (17-59) U/L Alkaline Phosphatase (38-126) U/L Total Protein (6.3-8.2) g/dL Albumin (3.5-5.0) g/dL Arterial Blood Potassium (3.4-4.5) mmol/L Crossmatch 09/16/16 09/16/16 09/16/16 Range/Units 02:05 03:04 04:00 WBC 14.6 H (3.8-10.6) k/uL RBC 2.96 L (4.30-5.90) m/uL Hgb 8.4 L (13.0-17.5) gm/dL Hct 27.3 L (39.0-53.0) % Neutrophils # 13.3 H (1.3-7.7) k/uL Lymphocytes # 0.6 L (1.0-4.8) k/uL PT (9.0-12.0) sec APTT (22.0-30.0) sec ABG pH (7.35-7.45) ABG pCO2 (35-45) mmHg ABG pO2 (83-108) mmHg ABG HCO3 (21-25) mmol/L ABG Total CO2 (19-24) mmol/L ABG O2 Saturation (94-97) % ABG Hematocrit (34.0-46.0) % ABG Potassium (3.4-4.5) mmol/L Potassium (3.5-5.1) mmol/L Chloride (98-107) mmol/L Carbon Dioxide (22-30) mmol/L BUN (9-20) mg/dL Creatinine (0.66-1.25) mg/dL Glucose (74-99) mg/dL POC Glucose (mg/dL) 154 H 194 H (75-99) mg/dL Calcium (8.4-10.2) mg/dL Magnesium (1.6-2.3) mg/dL AST (17-59) U/L Alkaline Phosphatase (38-126) U/L Total Protein (6.3-8.2) g/dL Albumin (3.5-5.0) g/dL Arterial Blood Potassium (3.4-4.5) mmol/L Crossmatch 09/16/16 09/16/16 09/16/16 Range/Units 04:00 04:00 05:05 WBC (3.8-10.6) k/uL RBC (4.30-5.90) m/uL Hgb (13.0-17.5) gm/dL Hct (39.0-53.0) % Neutrophils # (1.3-7.7) k/uL Lymphocytes # (1.0-4.8) k/uL PT (9.0-12.0) sec APTT (22.0-30.0) sec ABG pH (7.35-7.45) ABG pCO2 (35-45) mmHg ABG pO2 (83-108) mmHg ABG HCO3 (21-25) mmol/L ABG Total CO2 (19-24) mmol/L ABG O2 Saturation (94-97) % ABG Hematocrit (34.0-46.0) % ABG Potassium (3.4-4.5) mmol/L Potassium 5.2 H (3.5-5.1) mmol/L Chloride 113 H (98-107) mmol/L Carbon Dioxide 21 L (22-30) mmol/L BUN 40 H (9-20) mg/dL Creatinine 2.00 H (0.66-1.25) mg/dL Glucose 172 H (74-99) mg/dL POC Glucose (mg/dL) 200 H 189 H (75-99) mg/dL Calcium 7.9 L (8.4-10.2) mg/dL Magnesium 2.6 H (1.6-2.3) mg/dL AST 75 H (17-59) U/L Alkaline Phosphatase 37 L (38-126) U/L Total Protein 4.5 L (6.3-8.2) g/dL Albumin 3.1 L (3.5-5.0) g/dL Arterial Blood Potassium (3.4-4.5) mmol/L Crossmatch 09/16/16 09/16/16 09/16/16 Range/Units 05:35 05:59 07:07 WBC (3.8-10.6) k/uL RBC (4.30-5.90) m/uL Hgb (13.0-17.5) gm/dL Hct (39.0-53.0) % Neutrophils # (1.3-7.7) k/uL Lymphocytes # (1.0-4.8) k/uL PT (9.0-12.0) sec APTT (22.0-30.0) sec ABG pH 7.47 H (7.35-7.45) ABG pCO2 30 L (35-45) mmHg ABG pO2 82 L (83-108) mmHg ABG HCO3 (21-25) mmol/L ABG Total CO2 (19-24) mmol/L ABG O2 Saturation (94-97) % ABG Hematocrit (34.0-46.0) % ABG Potassium (3.4-4.5) mmol/L Potassium (3.5-5.1) mmol/L Chloride (98-107) mmol/L Carbon Dioxide (22-30) mmol/L BUN (9-20) mg/dL Creatinine (0.66-1.25) mg/dL Glucose (74-99) mg/dL POC Glucose (mg/dL) 166 H 164 H (75-99) mg/dL Calcium (8.4-10.2) mg/dL Magnesium (1.6-2.3) mg/dL AST (17-59) U/L Alkaline Phosphatase (38-126) U/L Total Protein (6.3-8.2) g/dL Albumin (3.5-5.0) g/dL Arterial Blood Potassium (3.4-4.5) mmol/L Crossmatch 09/16/16 09/16/16 09/16/16 Range/Units 08:04 09:01 09:59 WBC (3.8-10.6) k/uL RBC (4.30-5.90) m/uL Hgb (13.0-17.5) gm/dL Hct (39.0-53.0) % Neutrophils # (1.3-7.7) k/uL Lymphocytes # (1.0-4.8) k/uL PT (9.0-12.0) sec APTT (22.0-30.0) sec ABG pH (7.35-7.45) ABG pCO2 (35-45) mmHg ABG pO2 (83-108) mmHg ABG HCO3 (21-25) mmol/L ABG Total CO2 (19-24) mmol/L ABG O2 Saturation (94-97) % ABG Hematocrit (34.0-46.0) % ABG Potassium (3.4-4.5) mmol/L Potassium (3.5-5.1) mmol/L Chloride (98-107) mmol/L Carbon Dioxide (22-30) mmol/L BUN (9-20) mg/dL Creatinine (0.66-1.25) mg/dL Glucose (74-99) mg/dL POC Glucose (mg/dL) 132 H 120 H 118 H (75-99) mg/dL Calcium (8.4-10.2) mg/dL Magnesium (1.6-2.3) mg/dL AST (17-59) U/L Alkaline Phosphatase (38-126) U/L Total Protein (6.3-8.2) g/dL Albumin (3.5-5.0) g/dL Arterial Blood Potassium (3.4-4.5) mmol/L Crossmatch 09/16/16 09/16/16 09/16/16 Range/Units 11:09 11:12 12:04 WBC (3.8-10.6) k/uL RBC (4.30-5.90) m/uL Hgb (13.0-17.5) gm/dL Hct (39.0-53.0) % Neutrophils # (1.3-7.7) k/uL Lymphocytes # (1.0-4.8) k/uL PT (9.0-12.0) sec APTT (22.0-30.0) sec ABG pH 7.48 H (7.35-7.45) ABG pCO2 28 L (35-45) mmHg ABG pO2 (83-108) mmHg ABG HCO3 (21-25) mmol/L ABG Total CO2 (19-24) mmol/L ABG O2 Saturation 98.0 H (94-97) % ABG Hematocrit (34.0-46.0) % ABG Potassium (3.4-4.5) mmol/L Potassium (3.5-5.1) mmol/L Chloride (98-107) mmol/L Carbon Dioxide (22-30) mmol/L BUN (9-20) mg/dL Creatinine (0.66-1.25) mg/dL Glucose (74-99) mg/dL POC Glucose (mg/dL) 114 H 138 H (75-99) mg/dL Calcium (8.4-10.2) mg/dL Magnesium (1.6-2.3) mg/dL AST (17-59) U/L Alkaline Phosphatase (38-126) U/L Total Protein (6.3-8.2) g/dL Albumin (3.5-5.0) g/dL Arterial Blood Potassium (3.4-4.5) mmol/L Crossmatch 09/16/16 09/16/16 09/16/16 Range/Units 12:14 13:10 14:04 WBC (3.8-10.6) k/uL RBC (4.30-5.90) m/uL Hgb (13.0-17.5) gm/dL Hct (39.0-53.0) % Neutrophils # (1.3-7.7) k/uL Lymphocytes # (1.0-4.8) k/uL PT (9.0-12.0) sec APTT (22.0-30.0) sec ABG pH 7.48 H (7.35-7.45) ABG pCO2 28 L (35-45) mmHg ABG pO2 (83-108) mmHg ABG HCO3 (21-25) mmol/L ABG Total CO2 (19-24) mmol/L ABG O2 Saturation 98.0 H (94-97) % ABG Hematocrit (34.0-46.0) % ABG Potassium (3.4-4.5) mmol/L Potassium (3.5-5.1) mmol/L Chloride (98-107) mmol/L Carbon Dioxide (22-30) mmol/L BUN (9-20) mg/dL Creatinine (0.66-1.25) mg/dL Glucose (74-99) mg/dL POC Glucose (mg/dL) 136 H 124 H (75-99) mg/dL Calcium (8.4-10.2) mg/dL Magnesium (1.6-2.3) mg/dL AST (17-59) U/L Alkaline Phosphatase (38-126) U/L Total Protein (6.3-8.2) g/dL Albumin (3.5-5.0) g/dL Arterial Blood Potassium (3.4-4.5) mmol/L Crossmatch 09/16/16 09/16/16 09/16/16 Range/Units 15:02 16:16 16:52 WBC (3.8-10.6) k/uL RBC (4.30-5.90) m/uL Hgb (13.0-17.5) gm/dL Hct (39.0-53.0) % Neutrophils # (1.3-7.7) k/uL Lymphocytes # (1.0-4.8) k/uL PT (9.0-12.0) sec APTT (22.0-30.0) sec ABG pH (7.35-7.45) ABG pCO2 (35-45) mmHg ABG pO2 (83-108) mmHg ABG HCO3 (21-25) mmol/L ABG Total CO2 (19-24) mmol/L ABG O2 Saturation (94-97) % ABG Hematocrit (34.0-46.0) % ABG Potassium (3.4-4.5) mmol/L Potassium (3.5-5.1) mmol/L Chloride (98-107) mmol/L Carbon Dioxide (22-30) mmol/L BUN (9-20) mg/dL Creatinine (0.66-1.25) mg/dL Glucose (74-99) mg/dL POC Glucose (mg/dL) 119 H 116 H 113 H (75-99) mg/dL Calcium (8.4-10.2) mg/dL Magnesium (1.6-2.3) mg/dL AST (17-59) U/L Alkaline Phosphatase (38-126) U/L Total Protein (6.3-8.2) g/dL Albumin (3.5-5.0) g/dL Arterial Blood Potassium (3.4-4.5) mmol/L Crossmatch 09/16/16 09/16/16 09/16/16 Range/Units 17:23 17:55 19:08 WBC (3.8-10.6) k/uL RBC (4.30-5.90) m/uL Hgb (13.0-17.5) gm/dL Hct (39.0-53.0) % Neutrophils # (1.3-7.7) k/uL Lymphocytes # (1.0-4.8) k/uL PT (9.0-12.0) sec APTT (22.0-30.0) sec ABG pH 7.49 H (7.35-7.45) ABG pCO2 27 L (35-45) mmHg ABG pO2 (83-108) mmHg ABG HCO3 20 L (21-25) mmol/L ABG Total CO2 (19-24) mmol/L ABG O2 Saturation (94-97) % ABG Hematocrit (34.0-46.0) % ABG Potassium (3.4-4.5) mmol/L Potassium (3.5-5.1) mmol/L Chloride (98-107) mmol/L Carbon Dioxide (22-30) mmol/L BUN (9-20) mg/dL Creatinine (0.66-1.25) mg/dL Glucose (74-99) mg/dL POC Glucose (mg/dL) 143 H 149 H (75-99) mg/dL Calcium (8.4-10.2) mg/dL Magnesium (1.6-2.3) mg/dL AST (17-59) U/L Alkaline Phosphatase (38-126) U/L Total Protein (6.3-8.2) g/dL Albumin (3.5-5.0) g/dL Arterial Blood Potassium (3.4-4.5) mmol/L Crossmatch 09/16/16 09/16/16 Range/Units 19:51 20:49 WBC (3.8-10.6) k/uL RBC (4.30-5.90) m/uL Hgb (13.0-17.5) gm/dL Hct (39.0-53.0) % Neutrophils # (1.3-7.7) k/uL Lymphocytes # (1.0-4.8) k/uL PT (9.0-12.0) sec APTT (22.0-30.0) sec ABG pH (7.35-7.45) ABG pCO2 (35-45) mmHg ABG pO2 (83-108) mmHg ABG HCO3 (21-25) mmol/L ABG Total CO2 (19-24) mmol/L ABG O2 Saturation (94-97) % ABG Hematocrit (34.0-46.0) % ABG Potassium (3.4-4.5) mmol/L Potassium (3.5-5.1) mmol/L Chloride (98-107) mmol/L Carbon Dioxide (22-30) mmol/L BUN (9-20) mg/dL Creatinine (0.66-1.25) mg/dL Glucose (74-99) mg/dL POC Glucose (mg/dL) 138 H 126 H (75-99) mg/dL Calcium (8.4-10.2) mg/dL Magnesium (1.6-2.3) mg/dL AST (17-59) U/L Alkaline Phosphatase (38-126) U/L Total Protein (6.3-8.2) g/dL Albumin (3.5-5.0) g/dL Arterial Blood Potassium (3.4-4.5) mmol/L Crossmatch Microbiology - Last 24 Hours (Table) 09/15/16 13:00 Urine Culture - Preliminary Urine,Catheterized Assessment and Plan Plan: Acute hypoxic respiratory failure present on admission Acute exacerbation of CHF, systolic, ejection fraction 30% Pulmonary edema Acute coronary syndrome Coronary artery disease Need for CABG History of CVA History of peripheral arterial disease Active tobacco abuse COPD Peripheral neuropathy CK D3 Diabetes mellitus type 2 BPH Hypertension Dyslipidemia O2 to maintain saturation greater than or equal to 88% Decrease PEEP to 5, repeat ABG in 1 hour Pulmicort and DuoNeb's Cardiology recommendations Monitor renal function and urine output Hemodynamics per cardiothoracic surgery Smoking cessation is highly recommended GI and DVT prophylaxis Hopeful for possible extubation later today
[2016-09-16] MEDS: SENNOSIDES-DOCUSATE SODIUM 1 EACH TAB PO SCH (21:56)
[2016-09-16 22:21] LABS: Glucose,Whole Blood 107 mg/dL (75-99)
[2016-09-16 22:55] LABS: Glucose,Whole Blood 104 mg/dL (75-99)
[2016-09-16] MEDS: HYDROcodone/APAP 5-325MG 1 EACH TAB PO PRN (22:56)
[2016-09-17 00:22] LABS: Glucose,Whole Blood 136 mg/dL (75-99)
[2016-09-17] MEDS: MORPHINE SULFATE 2 MG/ML SYRINGE IVP PRN ×3 (00:28→05:20)
[2016-09-17] MEDS: INSULIN REGULAR 100 UNIT in SODIUM CHLORIDE 0.9% 100 ML IV SCH (00:29)
[2016-09-17 01:22] LABS: Glucose,Whole Blood 135 mg/dL (75-99)
[2016-09-17] MEDS ORDERED: FUROSEMIDE 10 MG/ML 4 ML VIAL ONE (01:45)
[2016-09-17] MEDS: IPRATROPIUM-ALBUTEROL 3 ML NEB INHALATION PRN ×6 (01:51→19:29)
[2016-09-17 02:06] LABS: Glucose,Whole Blood 125 mg/dL (75-99)
[2016-09-17 03:19] LABS: Glucose,Whole Blood 113 mg/dL (75-99)
[2016-09-17 04:10] LABS: Glucose,Whole Blood 105 mg/dL (75-99)
[2016-09-17 04:57] LABS: Glucose,Whole Blood 120 mg/dL (75-99)
[2016-09-17 05:07] LABS: Basophils % (A) 0 %; CH 29.1; CHCM 31.7; Eosinophils % (A) 0 %; HCT 25.6 % (39.0-53.0); HDW 2.92; HGB 8.2 gm/dL (13.0-17.5); Hypochromasia Slight; Luc # (Auto) 0.14; Luc % (Auto) 1; Lymphocytes % (A) 9 %; MCH 29.5 pg (25.0-35.0); MCHC 31.9 g/dL (31.0-37.0); MCV 92.6 fL (80.0-100.0); Mean Platelet Volume 7.5; Monocytes # (A) 0.5 k/uL (0-1.0); Monocytes % (A) 4 %; Neutrophils # (A) 9.4 k/uL (1.3-7.7); Neutrophils % (A) 85 %; RBC 2.77 m/uL (4.30-5.90); RDW 14.5 % (11.5-15.5); WBC (Perox) 11.27
[2016-09-17 05:10] LABS: Ionized Calcium 4.8 mg/dL (4.5-5.3)
[2016-09-17 05:14] LABS: INR 1.2 (<1.1)
[2016-09-17] MEDS: SODIUM CHLORIDE 0.9% 1,000 ML IV SCH (05:16)
[2016-09-17 05:20] LABS: Calcium 8.2 mg/dL (8.4-10.2); Magnesium 2.6 mg/dL (1.6-2.3); Potassium 4.4 mmol/L (3.5-5.1); Total Bilirubin 0.4 mg/dL (0.2-1.3); Total Protein 5.1 g/dL (6.3-8.2)
[2016-09-17 06:14] LABS: Glucose,Whole Blood 128 mg/dL (75-99)
--- NOTE | 2016-09-17 06:46 | XR ---
EXAMINATION TYPE: XR chest 1V portable DATE OF EXAM: 09/17/2016 HISTORY: sob. REFERENCE: Previous study dated 09/16/2016. FINDINGS: There has been a midline sternotomy. The patient has been extubated. The patient is NG tube is been removed. The patient's [place] catheter remains in place. Its tips in the main pulmonary o utflow tract. A left pleural drain is in place. The heart is enlarged. There is worsening bibasilar infiltrates. There are small, bilateral effusions . There is developing subcutaneous emphysema on the left. IMPRESSION: 1. POSTSURGICAL CHANGE. 2. WORSENING BIBASILAR AIRSPACE DISEASE. 3. SMALL BILATERAL EFFUSIONS. 4. WORSENING SUBCUTANEOUS EMPHYSEMA ON THE LEFT.
[2016-09-17 06:58] LABS: Glucose,Whole Blood 125 mg/dL (75-99)
[2016-09-17 07:25] LABS: ABG HCO3 20 mmol/L (21-25); ABG PCO2 27 mmHg (35-45); ABG PH 7.49 (7.35-7.45); ABG PO2 107 mmHg (83-108); ABG TCO2 21 mmol/L (19-24)
--- NOTE | 2016-09-17 08:11 | P.PN ---
<Lakisha Nesbitt - Last Filed: 09/17/16 07:55> Subjective Principal diagnosis: Non-STEMI, triple vessel coronary artery disease with left main disease requiring preoperative placement of intra-aortic balloon pump, flash pulmonary edema, moderate to severe left ventricular dysfunction. History of hypertension , hyperlipidemia, COPD, CVA, left carotid occlusion, type 2 diabetes, SVT, chronic kidney disease stage III, and current tobacco dependence. Calcified ascending aorta. POD #2 emergent quadruple coronary artery bypass grafting using the left internal mammary artery to the intra-myocardial left anterior descending artery , reverse saphenous vein graft connected to the aorta using the PAS-Port device and connected distally to the right coronary artery after local endarterectomy, reverse saphenous vein graft connected to the aorta using the PAS-Port device and anastomosed sequentially to the second obtuse marginal artery in a side-to- side fashion then the third obtuse marginal artery in an end to side fashion. Endoscopic harvesting of the left greater saphenous vein. Intraoperative transesophageal echocardiogram and epi-aortic scanning. Intraoperative graft flow measurements using the [employer] system. Acute postoperative hypoxic respiratory failure requiring mechanical ventilation , an expected outcome of surgical procedure. The patient was extubated yesterday to a Ventimask. Did have some respiratory distress overnight requiring placement of BiPAP. Currently sitting up in bed in no acute distress with BiPAP mask on. Right femoral intra-aortic balloon pump was removed yesterday. Was weaned off levo overnight, Primacor turned off this morning. Vital signs remain stable. Objective - Vital Signs Vital signs: Vital Signs Temp 98.8 F 09/17/16 04:00 Pulse 97 09/17/16 07:00 Resp 22 09/17/16 07:00 BP 95/52 09/16/16 16:00 Pulse Ox 98 09/17/16 07:00 Intake & Output 09/16/16 09/17/16 09/17/16 18:59 06:59 18:59 Intake Total 2012.031 1111.103 104.504 Output Total 1515 1670 165 Balance 497.031 -558.897 -60.496 Weight 88.9 kg 90.2 kg Intake: IV 1084.2 949.82 59 ACETAMINOPHEN IV (For NPO 100 100 ) 1,000 mg In Empty Bag 1 bag @ 400 mls/hr IVPB Q6HR [facility] Rx#:[id number] CO/CI 90 83 Lactated Ringers 1,000 ml 580 600 50 @ 50 mls/hr IV .Q20H [facility] Rx#:[id number] Nitroglycerin-D5w Pmx 50 6.0 mg In Dextrose/Water 1 250ml.bag @ 5 MCG/MIN 1.5 mls/hr IV .Q24H [facility] Rx#: [id number] Pressure Bag 108 108 9 Primacor 6.2 52.82 ceFAZolin 2 gm In Sodium 200 Chloride 0.9% 100 ml @ 100 mls/hr IVPB Q8HR [facility] Rx#:[id number] Intake, IV Titration 723.831 161.283 45.504 Amount Albumin Human 5% 250 ml 250 As IVPB .STK-MED [facility] Rx#: [id number] Calcium Gluconate 1,000 100 mg In Sodium Chloride 0.9 % 100 ml @ 100 mls/hr IVPB ONCE [facility] Rx#: [id number] Dexmedetomidine in 0.9 % 142.429 24.919 40.8 NaCl 400 mcg In Empty Bag 1 bag @ Titrate IV .Q0M [facility] Rx#:[id number] Insulin Regular 100 unit 52.294 28.780 4.704 In Sodium Chloride 0.9% 100 ml @ Per Protocol IV .Q0M [facility] Rx#:[id number] Milrinone-D5w Pmx 20 mg 52.122 65.066 In Dextrose/Water 1 100ml .bag @ 0.25 MCG/KG/MIN 6. 12 mls/hr IV .[id number] [facility] Rx#:[id number] Norepinephrin 16 mg-0.9% 126.986 42.518 Ns Pmx 16 mg In 250 ml @ Titrate IV .Q0M [facility] Rx#: [id number] Blood Product 204 Platelet Pheresis Acda3 204 Unit [id number] Output: Chest Tube Drainage 370 445 40 Bilateral Mediastinal 265 245 20 Left Pleural 105 200 20 Drainage 30 75 Left Whiting 30 75 Urine 1115 1150 125 Other: Voiding Method Indwelling Catheter Indwelling Catheter # Voids 1 1 ABP, PAP, CO, CI - Last Documented Arterial Blood Pressure 108/63 Pulmonary Artery Pressure 36/21 Cardiac Output 5.6 Cardiac Index 3.1 - Constitutional General appearance: Present: cooperative, no acute distress, obese - Respiratory Details: Lungs sounds diminished and course bilaterally. Respirations even, and non- labored on BiPAP. Current settings FiO2 of 70%, IPAP 12, EPAP 5. Mediastinal chest tube to -20 cm wall suction, drained 130 mL overnight, 500 mL in the last 24 hours. Left pleural chest tube to -27 m wall suction, drained 130 mL overnight, 320 mL in the last 24 hours. No air leaks present. - Cardiovascular Details: S1, S2 present. Regular rate and rhythm, normal sinus rhythm to sinus tach on telemetry. Sternum stable. Heart hugger in place with patient unable to demonstrate appropriate use at this time. Teds/SCDs present. Left brachial A- line, right IJ Cordis/Rosebush remain present. Ventricular epicardial pacemaker wires present, connected to generator, VVI with backup rate 50 bpm. - Gastrointestinal Gastrointestinal Comment(s): Abdomen slightly firm, slightly distended, nontender. Hypoactive bowel sounds present. Minimal positive flatus. - Genitourinary Genitourinary Comment(s): Chan present draining clear, yellow urine. Output 50-175 mL/h overnight. - Integumentary Integumentary Comment(s): Anterior chest incision well approximated and covered with dry intact dressing. Left lower extremity EVH site well approximated, MARTIN drain in place with minimal serosanguineous output overnight. Right groin soft, nontender. - Musculoskeletal Musculoskeletal: Present: strength equal bilaterally - Psychiatric Psychiatric: Present: A&O x's 3, appropriate affect, intact judgment & insight - Allied health notes Allied health notes reviewed: nursing - Labs CBC & Chem 7: 09/17/16 04:55 09/17/16 04:55 Labs: Abnormal Lab Results - Last 24 Hours (Table) 09/15/16 09/16/16 09/16/16 Range/Units 12:45 08:04 09:01 WBC (3.8-10.6) k/uL RBC (4.30-5.90) m/uL Hgb (13.0-17.5) gm/dL Hct (39.0-53.0) % Neutrophils # (1.3-7.7) k/uL ABG pH (7.35-7.45) ABG pCO2 (35-45) mmHg ABG HCO3 (21-25) mmol/L ABG O2 Saturation (94-97) % Sodium (137-145) mmol/L Chloride (98-107) mmol/L BUN (9-20) mg/dL Creatinine (0.66-1.25) mg/dL Glucose (74-99) mg/dL POC Glucose (mg/dL) 132 H 120 H (75-99) mg/dL Calcium (8.4-10.2) mg/dL Magnesium (1.6-2.3) mg/dL AST (17-59) U/L ALT (21-72) U/L Total Protein (6.3-8.2) g/dL Albumin (3.5-5.0) g/dL Crossmatch See Detail 09/16/16 09/16/16 09/16/16 Range/Units 09:59 11:09 11:12 WBC (3.8-10.6) k/uL RBC (4.30-5.90) m/uL Hgb (13.0-17.5) gm/dL Hct (39.0-53.0) % Neutrophils # (1.3-7.7) k/uL ABG pH 7.48 H (7.35-7.45) ABG pCO2 28 L (35-45) mmHg ABG HCO3 (21-25) mmol/L ABG O2 Saturation 98.0 H (94-97) % Sodium (137-145) mmol/L Chloride (98-107) mmol/L BUN (9-20) mg/dL Creatinine (0.66-1.25) mg/dL Glucose (74-99) mg/dL POC Glucose (mg/dL) 118 H 114 H (75-99) mg/dL Calcium (8.4-10.2) mg/dL Magnesium (1.6-2.3) mg/dL AST (17-59) U/L ALT (21-72) U/L Total Protein (6.3-8.2) g/dL Albumin (3.5-5.0) g/dL Crossmatch 09/16/16 09/16/16 09/16/16 Range/Units 12:04 12:14 13:10 WBC (3.8-10.6) k/uL RBC (4.30-5.90) m/uL Hgb (13.0-17.5) gm/dL Hct (39.0-53.0) % Neutrophils # (1.3-7.7) k/uL ABG pH 7.48 H (7.35-7.45) ABG pCO2 28 L (35-45) mmHg ABG HCO3 (21-25) mmol/L ABG O2 Saturation 98.0 H (94-97) % Sodium (137-145) mmol/L Chloride (98-107) mmol/L BUN (9-20) mg/dL Creatinine (0.66-1.25) mg/dL Glucose (74-99) mg/dL POC Glucose (mg/dL) 138 H 136 H (75-99) mg/dL Calcium (8.4-10.2) mg/dL Magnesium (1.6-2.3) mg/dL AST (17-59) U/L ALT (21-72) U/L Total Protein (6.3-8.2) g/dL Albumin (3.5-5.0) g/dL Crossmatch 09/16/16 09/16/16 09/16/16 Range/Units 14:04 15:02 16:16 WBC (3.8-10.6) k/uL RBC (4.30-5.90) m/uL Hgb (13.0-17.5) gm/dL Hct (39.0-53.0) % Neutrophils # (1.3-7.7) k/uL ABG pH (7.35-7.45) ABG pCO2 (35-45) mmHg ABG HCO3 (21-25) mmol/L ABG O2 Saturation (94-97) % Sodium (137-145) mmol/L Chloride (98-107) mmol/L BUN (9-20) mg/dL Creatinine (0.66-1.25) mg/dL Glucose (74-99) mg/dL POC Glucose (mg/dL) 124 H 119 H 116 H (75-99) mg/dL Calcium (8.4-10.2) mg/dL Magnesium (1.6-2.3) mg/dL AST (17-59) U/L ALT (21-72) U/L Total Protein (6.3-8.2) g/dL Albumin (3.5-5.0) g/dL Crossmatch 09/16/16 09/16/16 09/16/16 Range/Units 16:52 17:23 17:55 WBC (3.8-10.6) k/uL RBC (4.30-5.90) m/uL Hgb (13.0-17.5) gm/dL Hct (39.0-53.0) % Neutrophils # (1.3-7.7) k/uL ABG pH 7.49 H (7.35-7.45) ABG pCO2 27 L (35-45) mmHg ABG HCO3 20 L (21-25) mmol/L ABG O2 Saturation (94-97) % Sodium (137-145) mmol/L Chloride (98-107) mmol/L BUN (9-20) mg/dL Creatinine (0.66-1.25) mg/dL Glucose (74-99) mg/dL POC Glucose (mg/dL) 113 H 143 H (75-99) mg/dL Calcium (8.4-10.2) mg/dL Magnesium (1.6-2.3) mg/dL AST (17-59) U/L ALT (21-72) U/L Total Protein (6.3-8.2) g/dL Albumin (3.5-5.0) g/dL Crossmatch 09/16/16 09/16/16 09/16/16 Range/Units 19:08 19:51 20:49 WBC (3.8-10.6) k/uL RBC (4.30-5.90) m/uL Hgb (13.0-17.5) gm/dL Hct (39.0-53.0) % Neutrophils # (1.3-7.7) k/uL ABG pH (7.35-7.45) ABG pCO2 (35-45) mmHg ABG HCO3 (21-25) mmol/L ABG O2 Saturation (94-97) % Sodium (137-145) mmol/L Chloride (98-107) mmol/L BUN (9-20) mg/dL Creatinine (0.66-1.25) mg/dL Glucose (74-99) mg/dL POC Glucose (mg/dL) 149 H 138 H 126 H (75-99) mg/dL Calcium (8.4-10.2) mg/dL Magnesium (1.6-2.3) mg/dL AST (17-59) U/L ALT (21-72) U/L Total Protein (6.3-8.2) g/dL Albumin (3.5-5.0) g/dL Crossmatch 09/16/16 09/16/16 09/17/16 Range/Units 22:19 22:54 00:20 WBC (3.8-10.6) k/uL RBC (4.30-5.90) m/uL Hgb (13.0-17.5) gm/dL Hct (39.0-53.0) % Neutrophils # (1.3-7.7) k/uL ABG pH (7.35-7.45) ABG pCO2 (35-45) mmHg ABG HCO3 (21-25) mmol/L ABG O2 Saturation (94-97) % Sodium (137-145) mmol/L Chloride (98-107) mmol/L BUN (9-20) mg/dL Creatinine (0.66-1.25) mg/dL Glucose (74-99) mg/dL POC Glucose (mg/dL) 107 H 104 H 136 H (75-99) mg/dL Calcium (8.4-10.2) mg/dL Magnesium (1.6-2.3) mg/dL AST (17-59) U/L ALT (21-72) U/L Total Protein (6.3-8.2) g/dL Albumin (3.5-5.0) g/dL Crossmatch 09/17/16 09/17/16 09/17/16 Range/Units 01:20 02:04 03:17 WBC (3.8-10.6) k/uL RBC (4.30-5.90) m/uL Hgb (13.0-17.5) gm/dL Hct (39.0-53.0) % Neutrophils # (1.3-7.7) k/uL ABG pH (7.35-7.45) ABG pCO2 (35-45) mmHg ABG HCO3 (21-25) mmol/L ABG O2 Saturation (94-97) % Sodium (137-145) mmol/L Chloride (98-107) mmol/L BUN (9-20) mg/dL Creatinine (0.66-1.25) mg/dL Glucose (74-99) mg/dL POC Glucose (mg/dL) 135 H 125 H 113 H (75-99) mg/dL Calcium (8.4-10.2) mg/dL Magnesium (1.6-2.3) mg/dL AST (17-59) U/L ALT (21-72) U/L Total Protein (6.3-8.2) g/dL Albumin (3.5-5.0) g/dL Crossmatch 09/17/16 09/17/16 09/17/16 Range/Units 04:08 04:55 04:55 WBC 11.0 H (3.8-10.6) k/uL RBC 2.77 L (4.30-5.90) m/uL Hgb 8.2 L (13.0-17.5) gm/dL Hct 25.6 L (39.0-53.0) % Neutrophils # 9.4 H (1.3-7.7) k/uL ABG pH (7.35-7.45) ABG pCO2 (35-45) mmHg ABG HCO3 (21-25) mmol/L ABG O2 Saturation (94-97) % Sodium 147 H (137-145) mmol/L Chloride 115 H (98-107) mmol/L BUN 34 H (9-20) mg/dL Creatinine 1.90 H (0.66-1.25) mg/dL Glucose 107 H (74-99) mg/dL POC Glucose (mg/dL) 105 H (75-99) mg/dL Calcium 8.2 L (8.4-10.2) mg/dL Magnesium 2.6 H (1.6-2.3) mg/dL AST 115 H (17-59) U/L ALT 78 H (21-72) U/L Total Protein 5.1 L (6.3-8.2) g/dL Albumin 3.4 L (3.5-5.0) g/dL Crossmatch 09/17/16 09/17/16 09/17/16 Range/Units 04:55 06:12 06:56 WBC (3.8-10.6) k/uL RBC (4.30-5.90) m/uL Hgb (13.0-17.5) gm/dL Hct (39.0-53.0) % Neutrophils # (1.3-7.7) k/uL ABG pH (7.35-7.45) ABG pCO2 (35-45) mmHg ABG HCO3 (21-25) mmol/L ABG O2 Saturation (94-97) % Sodium (137-145) mmol/L Chloride (98-107) mmol/L BUN (9-20) mg/dL Creatinine (0.66-1.25) mg/dL Glucose (74-99) mg/dL POC Glucose (mg/dL) 120 H 128 H 125 H (75-99) mg/dL Calcium (8.4-10.2) mg/dL Magnesium (1.6-2.3) mg/dL AST (17-59) U/L ALT (21-72) U/L Total Protein (6.3-8.2) g/dL Albumin (3.5-5.0) g/dL Crossmatch 09/17/16 Range/Units 07:23 WBC (3.8-10.6) k/uL RBC (4.30-5.90) m/uL Hgb (13.0-17.5) gm/dL Hct (39.0-53.0) % Neutrophils # (1.3-7.7) k/uL ABG pH 7.49 H (7.35-7.45) ABG pCO2 27 L (35-45) mmHg ABG HCO3 20 L (21-25) mmol/L ABG O2 Saturation 99.0 H (94-97) % Sodium (137-145) mmol/L Chloride (98-107) mmol/L BUN (9-20) mg/dL Creatinine (0.66-1.25) mg/dL Glucose (74-99) mg/dL POC Glucose (mg/dL) (75-99) mg/dL Calcium (8.4-10.2) mg/dL Magnesium (1.6-2.3) mg/dL AST (17-59) U/L ALT (21-72) U/L Total Protein (6.3-8.2) g/dL Albumin (3.5-5.0) g/dL Crossmatch - Imaging and Cardiology Chest x-ray: report reviewed, image reviewed Assessment and Plan (1) Non-STEMI (non-ST elevated myocardial infarction) Status: Acute (2) Left main coronary artery disease Status: Acute (3) History of CVA (cerebrovascular accident) Status: Acute (4) Left carotid artery occlusion Status: Acute (5) COPD (chronic obstructive pulmonary disease) Status: Acute (6) Uncontrolled type 2 diabetes mellitus Status: Acute (7) Hyperlipidemia Status: Acute (8) Chronic kidney disease, stage III (moderate) Status: Acute (9) History of paroxysmal supraventricular tachycardia Status: Acute (10) Tobacco dependence Status: Acute (11) Obesity (BMI 30.0-34.9) Status: Acute (12) Hypertension Status: Acute Plan: 1. Continue aspirin, plavix, statin, beta chandu, heparin subcu. 2. Wean oxygen as tolerated. Stone Polisher to manage. 3. Discontinue nitro drip today. Discontinue Rosebush. 4. Will discuss adding steroid based inhaler with pulmonology. 5. Avoid nephrotoxins. Decorator Hand on consult. 6. Insulin drip/diabetic management per primary care service. 7. Monitor daily labs, chest x-rays. 8. GI/DVT prophylaxis. 9. More recommendations as patient progresses. Time with Patient: Greater than 30 <Carrillo Hernandez - Last Filed: 09/17/16 10:53> Objective - Vital Signs Vital signs: Vital Signs Temp 98.8 F 09/17/16 04:00 Pulse 98 09/17/16 08:26 Resp 22 09/17/16 07:00 BP 95/52 09/16/16 16:00 Pulse Ox 93 L 09/17/16 09:50 Intake & Output 09/16/16 09/17/16 09/17/16 18:59 06:59 18:59 Intake Total 2011.031 1111.103 109.453 Output Total 1515 1670 165 Balance 497.031 -558.897 -55.547 Weight 88.9 kg 90.2 kg Intake: IV 1084.2 949.82 59 ACETAMINOPHEN IV (For NPO 100 100 ) 1,000 mg In Empty Bag 1 bag @ 400 mls/hr IVPB Q6HR [facility] Rx#:[id number] CO/CI 90 83 Lactated Ringers 1,000 ml 580 600 50 @ 50 mls/hr IV .Q20H [facility] Rx#:[id number] Nitroglycerin-D5w Pmx 50 6.0 mg In Dextrose/Water 1 250ml.bag @ 5 MCG/MIN 1.5 mls/hr IV .Q24H [facility] Rx#: [id number] Pressure Bag 108 108 9 Primacor 6.2 52.82 ceFAZolin 2 gm In Sodium 200 Chloride 0.9% 100 ml @ 100 mls/hr IVPB Q8HR [facility] Rx#:[id number] Intake, IV Titration 723.831 161.283 50.453 Amount Albumin Human 5% 250 ml 250 As IVPB .STK-MED [facility] Rx#: [id number] Calcium Gluconate 1,000 100 mg In Sodium Chloride 0.9 % 100 ml @ 100 mls/hr IVPB ONCE [facility] Rx#: [id number] Dexmedetomidine in 0.9 % 142.429 24.919 40.8 NaCl 400 mcg In Empty Bag 1 bag @ Titrate IV .Q0M [facility] Rx#:[id number] Insulin Regular 100 unit 52.294 28.780 9.653 In Sodium Chloride 0.9% 100 ml @ Per Protocol IV .Q0M [facility] Rx#:[id number] Milrinone-D5w Pmx 20 mg 52.122 65.066 In Dextrose/Water 1 100ml .bag @ 0.25 MCG/KG/MIN 6. 12 mls/hr IV .[id number] [facility] Rx#:[id number] Norepinephrin 16 mg-0.9% 126.986 42.518 Ns Pmx 16 mg In 250 ml @ Titrate IV .Q0M [facility] Rx#: [id number] Blood Product 204 Platelet Pheresis Acda3 204 Unit [id number] Output: Chest Tube Drainage 370 445 40 Bilateral Mediastinal 265 245 20 Left Pleural 105 200 20 Drainage 30 75 Left Whiting 30 75 Urine 1115 1150 125 Other: Voiding Method Indwelling Catheter Indwelling Catheter # Voids 1 1 ABP, PAP, CO, CI - Last Documented Arterial Blood Pressure 108/63 Pulmonary Artery Pressure 36/21 Cardiac Output 5.6 Cardiac Index 3.1 - Labs CBC & Chem 7: 09/17/16 04:55 09/17/16 04:55 Labs: Abnormal Lab Results - Last 24 Hours (Table) 09/15/16 09/16/16 09/16/16 Range/Units 12:45 11:09 11:12 WBC (3.8-10.6) k/uL RBC (4.30-5.90) m/uL Hgb (13.0-17.5) gm/dL Hct (39.0-53.0) % Neutrophils # (1.3-7.7) k/uL ABG pH 7.48 H (7.35-7.45) ABG pCO2 28 L (35-45) mmHg ABG HCO3 (21-25) mmol/L ABG O2 Saturation 98.0 H (94-97) % Sodium (137-145) mmol/L Chloride (98-107) mmol/L BUN (9-20) mg/dL Creatinine (0.66-1.25) mg/dL Glucose (74-99) mg/dL POC Glucose (mg/dL) 114 H (75-99) mg/dL Calcium (8.4-10.2) mg/dL Magnesium (1.6-2.3) mg/dL AST (17-59) U/L ALT (21-72) U/L Total Protein (6.3-8.2) g/dL Albumin (3.5-5.0) g/dL Crossmatch See Detail 09/16/16 09/16/16 09/16/16 Range/Units 12:04 12:14 13:10 WBC (3.8-10.6) k/uL RBC (4.30-5.90) m/uL Hgb (13.0-17.5) gm/dL Hct (39.0-53.0) % Neutrophils # (1.3-7.7) k/uL ABG pH 7.48 H (7.35-7.45) ABG pCO2 28 L (35-45) mmHg ABG HCO3 (21-25) mmol/L ABG O2 Saturation 98.0 H (94-97) % Sodium (137-145) mmol/L Chloride (98-107) mmol/L BUN (9-20) mg/dL Creatinine (0.66-1.25) mg/dL Glucose (74-99) mg/dL POC Glucose (mg/dL) 138 H 136 H (75-99) mg/dL Calcium (8.4-10.2) mg/dL Magnesium (1.6-2.3) mg/dL AST (17-59) U/L ALT (21-72) U/L Total Protein (6.3-8.2) g/dL Albumin (3.5-5.0) g/dL Crossmatch 09/16/16 09/16/16 09/16/16 Range/Units 14:04 15:02 16:16 WBC (3.8-10.6) k/uL RBC (4.30-5.90) m/uL Hgb (13.0-17.5) gm/dL Hct (39.0-53.0) % Neutrophils # (1.3-7.7) k/uL ABG pH (7.35-7.45) ABG pCO2 (35-45) mmHg ABG HCO3 (21-25) mmol/L ABG O2 Saturation (94-97) % Sodium (137-145) mmol/L Chloride (98-107) mmol/L BUN (9-20) mg/dL Creatinine (0.66-1.25) mg/dL Glucose (74-99) mg/dL POC Glucose (mg/dL) 124 H 119 H 116 H (75-99) mg/dL Calcium (8.4-10.2) mg/dL Magnesium (1.6-2.3) mg/dL AST (17-59) U/L ALT (21-72) U/L Total Protein (6.3-8.2) g/dL Albumin (3.5-5.0) g/dL Crossmatch 09/16/16 09/16/16 09/16/16 Range/Units 16:52 17:23 17:55 WBC (3.8-10.6) k/uL RBC (4.30-5.90) m/uL Hgb (13.0-17.5) gm/dL Hct (39.0-53.0) % Neutrophils # (1.3-7.7) k/uL ABG pH 7.49 H (7.35-7.45) ABG pCO2 27 L (35-45) mmHg ABG HCO3 20 L (21-25) mmol/L ABG O2 Saturation (94-97) % Sodium (137-145) mmol/L Chloride (98-107) mmol/L BUN (9-20) mg/dL Creatinine (0.66-1.25) mg/dL Glucose (74-99) mg/dL POC Glucose (mg/dL) 113 H 143 H (75-99) mg/dL Calcium (8.4-10.2) mg/dL Magnesium (1.6-2.3) mg/dL AST (17-59) U/L ALT (21-72) U/L Total Protein (6.3-8.2) g/dL Albumin (3.5-5.0) g/dL Crossmatch 09/16/16 09/16/16 09/16/16 Range/Units 19:08 19:51 20:49 WBC (3.8-10.6) k/uL RBC (4.30-5.90) m/uL Hgb (13.0-17.5) gm/dL Hct (39.0-53.0) % Neutrophils # (1.3-7.7) k/uL ABG pH (7.35-7.45) ABG pCO2 (35-45) mmHg ABG HCO3 (21-25) mmol/L ABG O2 Saturation (94-97) % Sodium (137-145) mmol/L Chloride (98-107) mmol/L BUN (9-20) mg/dL Creatinine (0.66-1.25) mg/dL Glucose (74-99) mg/dL POC Glucose (mg/dL) 149 H 138 H 126 H (75-99) mg/dL Calcium (8.4-10.2) mg/dL Magnesium (1.6-2.3) mg/dL AST (17-59) U/L ALT (21-72) U/L Total Protein (6.3-8.2) g/dL Albumin (3.5-5.0) g/dL Crossmatch 09/16/16 09/16/16 09/17/16 Range/Units 22:19 22:54 00:20 WBC (3.8-10.6) k/uL RBC (4.30-5.90) m/uL Hgb (13.0-17.5) gm/dL Hct (39.0-53.0) % Neutrophils # (1.3-7.7) k/uL ABG pH (7.35-7.45) ABG pCO2 (35-45) mmHg ABG HCO3 (21-25) mmol/L ABG O2 Saturation (94-97) % Sodium (137-145) mmol/L Chloride (98-107) mmol/L BUN (9-20) mg/dL Creatinine (0.66-1.25) mg/dL Glucose (74-99) mg/dL POC Glucose (mg/dL) 107 H 104 H 136 H (75-99) mg/dL Calcium (8.4-10.2) mg/dL Magnesium (1.6-2.3) mg/dL AST (17-59) U/L ALT (21-72) U/L Total Protein (6.3-8.2) g/dL Albumin (3.5-5.0) g/dL Crossmatch 09/17/16 09/17/16 09/17/16 Range/Units 01:20 02:04 03:17 WBC (3.8-10.6) k/uL RBC (4.30-5.90) m/uL Hgb (13.0-17.5) gm/dL Hct (39.0-53.0) % Neutrophils # (1.3-7.7) k/uL ABG pH (7.35-7.45) ABG pCO2 (35-45) mmHg ABG HCO3 (21-25) mmol/L ABG O2 Saturation (94-97) % Sodium (137-145) mmol/L Chloride (98-107) mmol/L BUN (9-20) mg/dL Creatinine (0.66-1.25) mg/dL Glucose (74-99) mg/dL POC Glucose (mg/dL) 135 H 125 H 113 H (75-99) mg/dL Calcium (8.4-10.2) mg/dL Magnesium (1.6-2.3) mg/dL AST (17-59) U/L ALT (21-72) U/L Total Protein (6.3-8.2) g/dL Albumin (3.5-5.0) g/dL Crossmatch 09/17/16 09/17/16 09/17/16 Range/Units 04:08 04:55 04:55 WBC 11.0 H (3.8-10.6) k/uL RBC 2.77 L (4.30-5.90) m/uL Hgb 8.2 L (13.0-17.5) gm/dL Hct 25.6 L (39.0-53.0) % Neutrophils # 9.4 H (1.3-7.7) k/uL ABG pH (7.35-7.45) ABG pCO2 (35-45) mmHg ABG HCO3 (21-25) mmol/L ABG O2 Saturation (94-97) % Sodium 147 H (137-145) mmol/L Chloride 115 H (98-107) mmol/L BUN 34 H (9-20) mg/dL Creatinine 1.90 H (0.66-1.25) mg/dL Glucose 107 H (74-99) mg/dL POC Glucose (mg/dL) 105 H (75-99) mg/dL Calcium 8.2 L (8.4-10.2) mg/dL Magnesium 2.6 H (1.6-2.3) mg/dL AST 115 H (17-59) U/L ALT 78 H (21-72) U/L Total Protein 5.1 L (6.3-8.2) g/dL Albumin 3.4 L (3.5-5.0) g/dL Crossmatch 09/17/16 09/17/16 09/17/16 Range/Units 04:55 06:12 06:56 WBC (3.8-10.6) k/uL RBC (4.30-5.90) m/uL Hgb (13.0-17.5) gm/dL Hct (39.0-53.0) % Neutrophils # (1.3-7.7) k/uL ABG pH (7.35-7.45) ABG pCO2 (35-45) mmHg ABG HCO3 (21-25) mmol/L ABG O2 Saturation (94-97) % Sodium (137-145) mmol/L Chloride (98-107) mmol/L BUN (9-20) mg/dL Creatinine (0.66-1.25) mg/dL Glucose (74-99) mg/dL POC Glucose (mg/dL) 120 H 128 H 125 H (75-99) mg/dL Calcium (8.4-10.2) mg/dL Magnesium (1.6-2.3) mg/dL AST (17-59) U/L ALT (21-72) U/L Total Protein (6.3-8.2) g/dL Albumin (3.5-5.0) g/dL Crossmatch 09/17/16 09/17/16 Range/Units 07:23 08:34 WBC (3.8-10.6) k/uL RBC (4.30-5.90) m/uL Hgb (13.0-17.5) gm/dL Hct (39.0-53.0) % Neutrophils # (1.3-7.7) k/uL ABG pH 7.49 H (7.35-7.45) ABG pCO2 27 L (35-45) mmHg ABG HCO3 20 L (21-25) mmol/L ABG O2 Saturation 99.0 H (94-97) % Sodium (137-145) mmol/L Chloride (98-107) mmol/L BUN (9-20) mg/dL Creatinine (0.66-1.25) mg/dL Glucose (74-99) mg/dL POC Glucose (mg/dL) 108 H (75-99) mg/dL Calcium (8.4-10.2) mg/dL Magnesium (1.6-2.3) mg/dL AST (17-59) U/L ALT (21-72) U/L Total Protein (6.3-8.2) g/dL Albumin (3.5-5.0) g/dL Crossmatch Assessment and Plan Plan: The patient was seen and examined. I agree with the above assessment and plan. He was extubated yesterday and was on BiPAP overnight. This morning he is on 15 L nasal cannula. He was given a dose of Lasix. His creatinine is 1.9. His [place] catheter was removed. His milrinone and Levophed were weaned off. Low-dose beta chandu was initiated. We will get him up in a chair later today.
[2016-09-17 08:37] LABS: Glucose,Whole Blood 108 mg/dL (75-99)
[2016-09-17] MEDS: HEPARIN SODIUM,PORCINE 5,000 UNIT/ML 1 ML VIAL SQ SCH ×2 (08:39→18:27)
[2016-09-17] MEDS: ATORVASTATIN 40 MG TAB PO SCH (08:40)
[2016-09-17] MEDS: ASPIRIN 325 MG TAB PO SCH (08:40)
[2016-09-17] MEDS: PANTOPRAZOLE 40 MG/10 ML VIAL IVP SCH (08:40)
[2016-09-17] MEDS: CLOPIDOGREL 75 MG TAB PO SCH (08:40)
[2016-09-17] MEDS: MUPIROCIN 2% OINT 22 GM TUBE NASAL SCH ×2 (08:40→20:53)
[2016-09-17] MEDS: METOPROLOL TARTRATE 12.5 MG TAB PO SCH ×2 (08:40→20:53)
[2016-09-17] MEDS: HYDROcodone/APAP 5-325MG 1 EACH TAB PO PRN ×4 (08:43→21:11)
[2016-09-17] MEDS ORDERED: FUROSEMIDE 10 MG/ML 4 ML VIAL IV STA (09:05)
--- NOTE | 2016-09-17 10:29 | ECHOF ---
Referral Reason:Heart Failure MEASUREMENTS -------- HEIGHT: 162.6 cm WEIGHT: 81.7 kg BP: 115/70 IVSd: 1.2 cm (0.6 - 1.1) LVIDd: 5.1 cm (3.9 - 5.3) LVPWd: 0.9 cm (0.6 - 1.1) IVSs: 1.8 cm LVIDs: 3.0 cm LVPWs: 1.5 cm LAESV Index (A-L): 30.83 ml/m Ao Diam: 3.7 cm (2.0 - 3.7) AV Cusp: 2.3 cm (1.5 - 2.6) LA Diam: 3.8 cm (2.7 - 3.8) MV EXCURSION: 20.477 mm (> 18.000) MV EF SLOPE: 222 mm/s (70 - 150) EPSS: 1.3 cm MV E Kiko: 1.00 m/s MV DecT: 141 ms MV A Kiko: 0.63 m/s MV E/A Ratio: 1.58 RAP: 5.00 mmHg RVSP: 29.79 mmHg FINDINGS -------- Sinus rhythm. This was a technically good study. There is mild concentric left ventricular hypertrophy. Overall left ventricular systolic function is moderate-severely impaired with, an EF between 30 - 35 %. Mitral Doppler inflow pattern suggests diastolic filling abnormality 18.31. Apical anterior LV wall motion is hypokinetic. Apical lateral LV wall motion is hypokinetic. Apical inferior LV wall motion is hypokinetic. Apical septum LV wall motion is hypokinetic. [place] Hypokinesis. The right ventricle is normal in size and function. LA is midly dilated 29-33ml/m2. The right atrium is normal in size. Aortic valve is trileaflet and is mildly thickened. The mitral valve leaflets are mildly thickened. Mild mitral regurgitation is present. Mild tricuspid regurgitation present. The right ventricular systolic pressure, as measured by Doppler, is 29.79mmHg. Pulmonic valve appears structurally normal. The aortic root, ascending aorta and aortic arch are normal. The pericardium is normal. CONCLUSIONS -------- 1. Sinus rhythm. 2. [place] Hypokinesis. 3. The right ventricle is normal in size and function. 4. LA is midly dilated 29-33ml/m2. 5. The right atrium is normal in size. 6. Aortic valve is trileaflet and is mildly thickened. 7. The mitral valve leaflets are mildly thickened. 8. Mild mitral regurgitation is present. 9. Mild tricuspid regurgitation present. 10. The right ventricular systolic pressure, as measured by Doppler, is 29.79mmHg. 11. Pulmonic valve appears structurally normal. 12. This was a technically good study. 13. The aortic root, ascending aorta and aortic arch are normal. 14. The pericardium is normal. 15. There is mild concentric left ventricular hypertrophy. 16. Overall left ventricular systolic function is moderate-severely impaired with, an EF between 30 - 35 %. 17. Mitral Doppler inflow pattern suggest diastolic filling abnormality 18.31. 18. Apical anterior LV wall motion is hypokinetic. 19. Apical lateral LV wall motion is hypokinetic. 20. Apical inferior LV wall motion is hypokinetic. 21. Apical septum LV wall motion is hypokinetic. BREAST BUFFER: Lakisha Alfred RDCS
[2016-09-17 11:04] LABS: Glucose,Whole Blood 120 mg/dL (75-99)
--- NOTE | 2016-09-17 11:53 | P.PN ---
Subjective 61-year-old male one of my office patient of known for long time with past medical history of CVA, PAD, CAD, COPD, chronic smoking, diabetes, chronic neuropathy and stage III kidney disease who was the hospital last in September 2015 for CVA. Patient has been doing well his blood sugar has been slightly elevated. Patient went to sleep was feeling well he woke up around 2:00 after midnight gasping for air having significant shortness of breath with mild tightness and pressure with mild cold sweat than slight wheezes and cough. Patient ended up coming to the emergency department at [facility] where was seen and evaluated surprisingly his chest x-ray showed sign of pulmonary edema first EKGs shows slight T waves inversion second EKG had mild change as well and his troponin continued to be mildly elevated. Patient was diagnosed with acute pulmonary edema secondary to congestive heart failure and possible from acute currently syndrome. Patient risk factor of having coronary artery disease extremely high at the time. Patient will be seen cardiology and possible need for an intervention with heart catheter. His chronic kidney disease with the current creatinine is quite bit elevated will involve nephrology diuresis patient and add Nitrol hopefully patient be more stable at this point and I hope creatinine will improve enough to allow him to go for heart catheter when he is ready. 09/16: The patient had worsening dyspnea and flash pulmonary edema. He underwent a cardiac catheterization which revealed more than 90% diffuse left main stenosis with moderate stenosis of the right coronary artery with some collaterals through the septals to the left system. He underwent an emergent CABG and required placement of a intra aortic balloon pump, this was placed by Dr. Cowan in the collaborative teacher. 2-D echo shows ejection fraction of 30% with no significant valvular abnormality. He is currently intubated and and is is on levophed and a primacor drip. He is also being followed by nephrology for his chronic kidney disease stage III. BUN 41, creatinine 1.78. Last chest x-ray showed vascular congestion and mild edema left basilar airspace disease, improving postoperative changes. The patient is also being followed by pulmonology. 09/17: The patient was extubated yesterday he did have some respiratory distress overnight and required placement of a BiPAP. Right femoral intra-aortic balloon pump was also removed yesterday he was weaned off levophed in Primacor drip was also turned off. Repeat chest x-ray showed postsurgical change worsening bibasilar airspace disease, small bilateral effusions, and worsening subcutaneous emphysema on the left. The patient continues to be followed by pulmonology. Kidney function slightly improved from yesterday BUN 34 creatinine 1.9. Objective - Vital Signs Vital signs: Vital Signs Temp 98.8 F 09/17/16 04:00 Pulse 92 09/17/16 11:00 Resp 22 09/17/16 08:00 BP 95/52 09/16/16 16:00 Pulse Ox 98 09/17/16 11:00 Intake & Output 09/16/16 09/17/16 09/17/16 18:59 06:59 18:59 Intake Total 2012.031 1111.103 487.453 Output Total 1515 1670 605 Balance 497.031 -558.897 -117.547 Weight 88.9 kg 90.2 kg 90.2 kg Intake: IV 1084.2 949.82 87 ACETAMINOPHEN IV (For NPO 100 100 ) 1,000 mg In Empty Bag 1 bag @ 400 mls/hr IVPB Q6HR [facility] Rx#:[id number] CO/CI 90 83 10 Lactated Ringers 1,000 ml 580 600 50 @ 50 mls/hr IV .Q20H [facility] Rx#:[id number] Nitroglycerin-D5w Pmx 50 6.0 mg In Dextrose/Water 1 250ml.bag @ 5 MCG/MIN 1.5 mls/hr IV .Q24H [facility] Rx#: [id number] Pressure Bag 108 108 27 Primacor 6.2 52.82 ceFAZolin 2 gm In Sodium 200 Chloride 0.9% 100 ml @ 100 mls/hr IVPB Q8HR [facility] Rx#:[id number] Intake, IV Titration 723.831 161.283 160.453 Amount Albumin Human 5% 250 ml 250 As IVPB .STK-MED ONE Rx#: [id number] Calcium Gluconate 1,000 100 mg In Sodium Chloride 0.9 % 100 ml @ 100 mls/hr IVPB ONCE [facility] Rx#: [id number] Dexmedetomidine in 0.9 % 142.429 24.919 40.8 NaCl 400 mcg In Empty Bag 1 bag @ Titrate IV .Q0M [facility] Rx#:[id number] Insulin Regular 100 unit 52.294 28.780 9.653 In Sodium Chloride 0.9% 100 ml @ Per Protocol IV .Q0M [facility] Rx#:[id number] Milrinone-D5w Pmx 20 mg 52.122 65.066 In Dextrose/Water 1 100ml .bag @ 0.25 MCG/KG/MIN 6. 12 mls/hr IV .[id number] [facility] Rx#:[id number] Norepinephrin 16 mg-0.9% 126.986 42.518 Ns Pmx 16 mg In 250 ml @ Titrate IV .Q0M [facility] Rx#: [id number] Sodium Chloride 0.9% 1, 110 000 ml @ 50 mls/hr IV . Q20H [facility] Rx#:[id number] Oral 240 Blood Product 204 Platelet Pheresis Acda3 204 Unit [id number] Output: Chest Tube Drainage 370 445 80 Bilateral Mediastinal 265 245 40 Left Pleural 105 200 40 Drainage 30 75 Left [place] 30 75 Urine 1115 1150 525 Other: Voiding Method Indwelling Catheter Indwelling Catheter Indwelling Catheter # Voids 1 1 ABP, PAP, CO, CI - Last Documented Arterial Blood Pressure 110/60 Pulmonary Artery Pressure 38/22 Cardiac Output 5.6 Cardiac Index 2.9 - Exam - Constitutional General appearance: no average body habitus, cooperative, disheveled, no mild distress, no morbidly obese, no acute distress, no obese, no severe distress, no thin - EENT Eyes: abnormal pupil, no anicteric sclerae, no disc margins sharp, no edentulous , no EOMI, no PERRLA, no fundus normal, no photophobia, no dentition normal, no poor dentition, no ptosis, no scleral icterus, normal appearance ENT: hard of hearing, no hearing grossly normal, no NA/AT, normal oropharynx, no other, no pharyngeal erythema, no thrush, no tonsillar exudates, no tonsillar swelling Ears: bilateral: normal - Neck Neck: no lymphadenopathy, normal ROM, no other, no rigidity, no stridor, no thyromegaly Carotids: bilateral: upstroke normal Thyroid: bilateral: normal size - Respiratory Respiratory: bilateral: diminished, dullness, rales, rhonchi, wheezing - Cardiovascular Rhythm: regular Heart sounds: normal: S1, S2 Abnormal Heart Sounds: systolic murmur, S3 Gallop - Gastrointestinal General gastrointestinal: no absent bowel sounds, decreased bowel sounds, no distended, no hepatomegaly, no hyperactive bowel sounds, normal bowel sounds, no organomegaly, no rigid, no scaphoid, soft, no splenomegaly, no tenderness, no umbilical hernia, no ventral hernia - Integumentary Integumentary: no calor, no cellulitis, no cyanotic, no decreased turgor, no flushed, no jaundiced, normal, no normal turgor, pale, rash, no ulcer - Neurologic Neurologic: CNII-XII intact - Musculoskeletal Musculoskeletal: no gait normal, generalized weakness, no strength equal bilaterally, no right sided weakness, no left sided weakness - Psychiatric Psychiatric: A&O x's 3, no appropriate affect, no intact judgment & insight - Labs CBC & Chem 7: 09/17/16 04:55 09/17/16 04:55 Labs: Abnormal Lab Results - Last 24 Hours (Table) 09/15/16 09/16/16 09/16/16 Range/Units 12:45 12:04 12:14 WBC (3.8-10.6) k/uL RBC (4.30-5.90) m/uL Hgb (13.0-17.5) gm/dL Hct (39.0-53.0) % Neutrophils # (1.3-7.7) k/uL ABG pH 7.48 H (7.35-7.45) ABG pCO2 28 L (35-45) mmHg ABG HCO3 (21-25) mmol/L ABG O2 Saturation 98.0 H (94-97) % Sodium (137-145) mmol/L Chloride (98-107) mmol/L BUN (9-20) mg/dL Creatinine (0.66-1.25) mg/dL Glucose (74-99) mg/dL POC Glucose (mg/dL) 138 H (75-99) mg/dL Calcium (8.4-10.2) mg/dL Magnesium (1.6-2.3) mg/dL AST (17-59) U/L ALT (21-72) U/L Total Protein (6.3-8.2) g/dL Albumin (3.5-5.0) g/dL Crossmatch See Detail 09/16/16 09/16/16 09/16/16 Range/Units 13:10 14:04 15:02 WBC (3.8-10.6) k/uL RBC (4.30-5.90) m/uL Hgb (13.0-17.5) gm/dL Hct (39.0-53.0) % Neutrophils # (1.3-7.7) k/uL ABG pH (7.35-7.45) ABG pCO2 (35-45) mmHg ABG HCO3 (21-25) mmol/L ABG O2 Saturation (94-97) % Sodium (137-145) mmol/L Chloride (98-107) mmol/L BUN (9-20) mg/dL Creatinine (0.66-1.25) mg/dL Glucose (74-99) mg/dL POC Glucose (mg/dL) 136 H 124 H 119 H (75-99) mg/dL Calcium (8.4-10.2) mg/dL Magnesium (1.6-2.3) mg/dL AST (17-59) U/L ALT (21-72) U/L Total Protein (6.3-8.2) g/dL Albumin (3.5-5.0) g/dL Crossmatch 09/16/16 09/16/16 09/16/16 Range/Units 16:16 16:52 17:23 WBC (3.8-10.6) k/uL RBC (4.30-5.90) m/uL Hgb (13.0-17.5) gm/dL Hct (39.0-53.0) % Neutrophils # (1.3-7.7) k/uL ABG pH 7.49 H (7.35-7.45) ABG pCO2 27 L (35-45) mmHg ABG HCO3 20 L (21-25) mmol/L ABG O2 Saturation (94-97) % Sodium (137-145) mmol/L Chloride (98-107) mmol/L BUN (9-20) mg/dL Creatinine (0.66-1.25) mg/dL Glucose (74-99) mg/dL POC Glucose (mg/dL) 116 H 113 H (75-99) mg/dL Calcium (8.4-10.2) mg/dL Magnesium (1.6-2.3) mg/dL AST (17-59) U/L ALT (21-72) U/L Total Protein (6.3-8.2) g/dL Albumin (3.5-5.0) g/dL Crossmatch 09/16/16 09/16/16 09/16/16 Range/Units 17:55 19:08 19:51 WBC (3.8-10.6) k/uL RBC (4.30-5.90) m/uL Hgb (13.0-17.5) gm/dL Hct (39.0-53.0) % Neutrophils # (1.3-7.7) k/uL ABG pH (7.35-7.45) ABG pCO2 (35-45) mmHg ABG HCO3 (21-25) mmol/L ABG O2 Saturation (94-97) % Sodium (137-145) mmol/L Chloride (98-107) mmol/L BUN (9-20) mg/dL Creatinine (0.66-1.25) mg/dL Glucose (74-99) mg/dL POC Glucose (mg/dL) 143 H 149 H 138 H (75-99) mg/dL Calcium (8.4-10.2) mg/dL Magnesium (1.6-2.3) mg/dL AST (17-59) U/L ALT (21-72) U/L Total Protein (6.3-8.2) g/dL Albumin (3.5-5.0) g/dL Crossmatch 09/16/16 09/16/16 09/16/16 Range/Units 20:49 22:19 22:54 WBC (3.8-10.6) k/uL RBC (4.30-5.90) m/uL Hgb (13.0-17.5) gm/dL Hct (39.0-53.0) % Neutrophils # (1.3-7.7) k/uL ABG pH (7.35-7.45) ABG pCO2 (35-45) mmHg ABG HCO3 (21-25) mmol/L ABG O2 Saturation (94-97) % Sodium (137-145) mmol/L Chloride (98-107) mmol/L BUN (9-20) mg/dL Creatinine (0.66-1.25) mg/dL Glucose (74-99) mg/dL POC Glucose (mg/dL) 126 H 107 H 104 H (75-99) mg/dL Calcium (8.4-10.2) mg/dL Magnesium (1.6-2.3) mg/dL AST (17-59) U/L ALT (21-72) U/L Total Protein (6.3-8.2) g/dL Albumin (3.5-5.0) g/dL Crossmatch 09/17/16 09/17/16 09/17/16 Range/Units 00:20 01:20 02:04 WBC (3.8-10.6) k/uL RBC (4.30-5.90) m/uL Hgb (13.0-17.5) gm/dL Hct (39.0-53.0) % Neutrophils # (1.3-7.7) k/uL ABG pH (7.35-7.45) ABG pCO2 (35-45) mmHg ABG HCO3 (21-25) mmol/L ABG O2 Saturation (94-97) % Sodium (137-145) mmol/L Chloride (98-107) mmol/L BUN (9-20) mg/dL Creatinine (0.66-1.25) mg/dL Glucose (74-99) mg/dL POC Glucose (mg/dL) 136 H 135 H 125 H (75-99) mg/dL Calcium (8.4-10.2) mg/dL Magnesium (1.6-2.3) mg/dL AST (17-59) U/L ALT (21-72) U/L Total Protein (6.3-8.2) g/dL Albumin (3.5-5.0) g/dL Crossmatch 09/17/16 09/17/16 09/17/16 Range/Units 03:17 04:08 04:55 WBC (3.8-10.6) k/uL RBC (4.30-5.90) m/uL Hgb (13.0-17.5) gm/dL Hct (39.0-53.0) % Neutrophils # (1.3-7.7) k/uL ABG pH (7.35-7.45) ABG pCO2 (35-45) mmHg ABG HCO3 (21-25) mmol/L ABG O2 Saturation (94-97) % Sodium 147 H (137-145) mmol/L Chloride 115 H (98-107) mmol/L BUN 34 H (9-20) mg/dL Creatinine 1.90 H (0.66-1.25) mg/dL Glucose 107 H (74-99) mg/dL POC Glucose (mg/dL) 113 H 105 H (75-99) mg/dL Calcium 8.2 L (8.4-10.2) mg/dL Magnesium 2.6 H (1.6-2.3) mg/dL AST 115 H (17-59) U/L ALT 78 H (21-72) U/L Total Protein 5.1 L (6.3-8.2) g/dL Albumin 3.4 L (3.5-5.0) g/dL Crossmatch 09/17/16 09/17/16 09/17/16 Range/Units 04:55 04:55 06:12 WBC 11.0 H (3.8-10.6) k/uL RBC 2.77 L (4.30-5.90) m/uL Hgb 8.2 L (13.0-17.5) gm/dL Hct 25.6 L (39.0-53.0) % Neutrophils # 9.4 H (1.3-7.7) k/uL ABG pH (7.35-7.45) ABG pCO2 (35-45) mmHg ABG HCO3 (21-25) mmol/L ABG O2 Saturation (94-97) % Sodium (137-145) mmol/L Chloride (98-107) mmol/L BUN (9-20) mg/dL Creatinine (0.66-1.25) mg/dL Glucose (74-99) mg/dL POC Glucose (mg/dL) 120 H 128 H (75-99) mg/dL Calcium (8.4-10.2) mg/dL Magnesium (1.6-2.3) mg/dL AST (17-59) U/L ALT (21-72) U/L Total Protein (6.3-8.2) g/dL Albumin (3.5-5.0) g/dL Crossmatch 09/17/16 09/17/16 09/17/16 Range/Units 06:56 07:23 08:34 WBC (3.8-10.6) k/uL RBC (4.30-5.90) m/uL Hgb (13.0-17.5) gm/dL Hct (39.0-53.0) % Neutrophils # (1.3-7.7) k/uL ABG pH 7.49 H (7.35-7.45) ABG pCO2 27 L (35-45) mmHg ABG HCO3 20 L (21-25) mmol/L ABG O2 Saturation 99.0 H (94-97) % Sodium (137-145) mmol/L Chloride (98-107) mmol/L BUN (9-20) mg/dL Creatinine (0.66-1.25) mg/dL Glucose (74-99) mg/dL POC Glucose (mg/dL) 125 H 108 H (75-99) mg/dL Calcium (8.4-10.2) mg/dL Magnesium (1.6-2.3) mg/dL AST (17-59) U/L ALT (21-72) U/L Total Protein (6.3-8.2) g/dL Albumin (3.5-5.0) g/dL Crossmatch 09/17/16 Range/Units 11:03 WBC (3.8-10.6) k/uL RBC (4.30-5.90) m/uL Hgb (13.0-17.5) gm/dL Hct (39.0-53.0) % Neutrophils # (1.3-7.7) k/uL ABG pH (7.35-7.45) ABG pCO2 (35-45) mmHg ABG HCO3 (21-25) mmol/L ABG O2 Saturation (94-97) % Sodium (137-145) mmol/L Chloride (98-107) mmol/L BUN (9-20) mg/dL Creatinine (0.66-1.25) mg/dL Glucose (74-99) mg/dL POC Glucose (mg/dL) 120 H (75-99) mg/dL Calcium (8.4-10.2) mg/dL Magnesium (1.6-2.3) mg/dL AST (17-59) U/L ALT (21-72) U/L Total Protein (6.3-8.2) g/dL Albumin (3.5-5.0) g/dL Crossmatch Assessment and Plan Plan: Plan: 1 CABG secondary to acute coronary syndrome with mildly elevated troponin slight change in his EKG: patient underwent cardiac cath, required emergent CABG 2 non-STEMI with left main disease: Patient underwent emergent CABG with balloon pump, balloon pump removed, continues to be followed by cardiology. 3 acute respiratory failure status post CABG surgery: Patient remains stable on BiPAP Followed by pulmonology. 4 acute pulmonary edema: Patient to be continued on furosemide, repeat chest x- ray 5 acute kidney injury secondary to hemodynamic instability and acute [place] status post CABG: Continue to watch BUN and creatinine closely 6 Chronic kidney disease stage III: Patient followed by nephrology. We'll continue to monitor BUN and creatinine. 7 type 2 diabetes: Patient is on insulin drip, plan to wean off insulin drip and change to long and short acting insulin. 8 COPD: Continue patient on O2, DuoNeb and Pulmicort, pulmonary is consulted 9 hyperlipidemia: Remain on simvastatin 40 mg a day and TriCor 54 mg daily. 10 BPH: Continue to watch for any urinary retention. 11 chronic tobacco use and dependency: We will add nicotine patch 21 milligrams daily. 12 history of CVA: Still with slight residual. 13 hypertension: continue metoprolol GI prophylaxis: Continue patient on pantoprazole 40 mg daily. DVT prophylaxis: Patient be on heparin 5000 units continues twice a day. CODE STATUS: Full code. The above impression and plan of care have been discussed and directed by signing physician. Cathie Sprague nurse practitioner acting as scribe for signing physician.
[2016-09-17 12:43] LABS: Glucose,Whole Blood 135 mg/dL (75-99)
--- NOTE | 2016-09-17 12:44 | PN ---
Mr. Cerna is a 60-year-old male who presented with an acute coronary syndrome and was found to have critical left main, underwent emergent coronary artery bypass grafting. He is extubated. His intra-aortic balloon pump has been removed. Hemodynamically, he is in sinus mechanism. There is no evidence of tachy or bradyarrhythmia. He is anxious. His oxygenation is stable. His urine output is stable. He has no dizziness. He has soreness in the chest. He continues to be Lipitor 40 mg daily, aspirin, Plavix, Lopressor 12.5 mg twice a day. PHYSICAL EXAMINATION: Blood pressure 101/50 with the heart rate in the 90s. LUNGS: With decreased breath sound at the bases and a few crackles. HEART: Regular rate and rhythm. S1, S2, no S3, no rub appreciated. ABDOMEN: Soft, nontender, positive bowel sounds. EXTREMITIES: No edema. Lab data revealed a BUN and creatinine of 34 and 1.9. Hemoglobin is 8.2. IMPRESSION: 1. Severe left main disease, status post coronary artery bypass grafting. 2. Ischemic cardiomyopathy, probably stunned myocardium. 3. Chronic kidney disease. 4. Hypertension. 5. Hyperlipidemia. 6. History of cerebrovascular accident and carotid disease. RECOMMENDATION: From the cardiac standpoint, we will continue supportive care. His x-ray shows congestion. I believe he will require diuretics and I will defer to the surgeon in that regard. If his pressure remains stable, then I will increase the dose of his beta blockers to 25 mg twice a day. Depending on his renal function and his blood pressure, further adjustment of his medical regimen can be made. Of note that the patient has been on an MATTY inhibitor prior to admission.
--- NOTE | 2016-09-17 12:55 | P.PN ---
Subjective Patient is seen in follow-up for acute kidney injury on chronic kidney disease. Patient has chronic kidney disease stage III secondary to diabetic kidney disease with baseline creatinine near 1.5. Creatinine peaked at 2 and is down to 1.9 today. Patient presented with dyspnea and flash pulmonary edema. Patient underwent a cardiac catheterization on September 16 which revealed triple- vessel disease and subsequently underwent emergent CABG on September 16. He was extubated on September 16. Balloon pump has been removed and Primacor drip has been discontinued as well. He is nonoliguric. Complains of pain at the surgical site. Vital signs are stable. General: The patient appeared well nourished and normally developed. Intubated. HEENT: Head exam is unremarkable. Neck is without jugular venous distension. LUNGS: Scattered rhonchi. Breath sounds decreased. HEART: Rate and Rhythm are regular. First and second heart sounds normal. No murmurs, rubs or gallops. ABDOMEN: Abdominal exam reveals normal bowel sounds. Non-tender and non- distended. No evidence of peritonitis. EXTREMITITES: No clubbing, cyanosis, or edema. Objective - Vital Signs Vital signs: Vital Signs Temp 99.4 F 09/17/16 12:00 Pulse 93 09/17/16 12:00 Resp 22 09/17/16 08:00 BP 95/52 09/16/16 16:00 Pulse Ox 93 L 09/17/16 12:00 Intake & Output 09/16/16 09/17/16 09/17/16 18:59 06:59 18:59 Intake Total 2012.031 1111.103 487.453 Output Total 1515 1670 695 Balance 497.031 -558.897 -207.547 Weight 88.9 kg 90.2 kg 90.2 kg Intake: IV 1084.2 949.82 87 ACETAMINOPHEN IV (For NPO 100 100 ) 1,000 mg In Empty Bag 1 bag @ 400 mls/hr IVPB Q6HR [facility] Rx#:[id number] CO/CI 90 83 10 Lactated Ringers 1,000 ml 580 600 50 @ 50 mls/hr IV .Q20H [facility] Rx#:[id number] Nitroglycerin-D5w Pmx 50 6.0 mg In Dextrose/Water 1 250ml.bag @ 5 MCG/MIN 1.5 mls/hr IV .Q24H [facility] Rx#: [id number] Pressure Bag 108 108 27 Primacor 6.2 52.82 ceFAZolin 2 gm In Sodium 200 Chloride 0.9% 100 ml @ 100 mls/hr IVPB Q8HR [facility] Rx#:[id number] Intake, IV Titration 723.831 161.283 160.453 Amount Albumin Human 5% 250 ml 250 As IVPB .STK-MED [facility] Rx#: [id number] Calcium Gluconate 1,000 100 mg In Sodium Chloride 0.9 % 100 ml @ 100 mls/hr IVPB ONCE [facility] Rx#: [id number] Dexmedetomidine in 0.9 % 142.429 24.919 40.8 NaCl 400 mcg In Empty Bag 1 bag @ Titrate IV .Q0M [facility] Rx#:[id number] Insulin Regular 100 unit 52.294 28.780 9.653 In Sodium Chloride 0.9% 100 ml @ Per Protocol IV .Q0M [facility] Rx#:[id number] Milrinone-D5w Pmx 20 mg 52.122 65.066 In Dextrose/Water 1 100ml .bag @ 0.25 MCG/KG/MIN 6. 12 mls/hr IV .[id number] [facility] Rx#:[id number] Norepinephrin 16 mg-0.9% 126.986 42.518 Ns Pmx 16 mg In 250 ml @ Titrate IV .Q0M [facility] Rx#: [id number] Sodium Chloride 0.9% 1, 110 000 ml @ 50 mls/hr IV . Q20H [facility] Rx#:[id number] Oral 240 Blood Product 204 Platelet Pheresis Acda3 204 Unit [id number] Output: Chest Tube Drainage 370 445 170 Bilateral Mediastinal 265 245 80 Left Pleural 105 200 90 Drainage 30 75 Left [place] 30 75 Urine 1115 1150 525 Other: Voiding Method Indwelling Catheter Indwelling Catheter Indwelling Catheter # Voids 1 1 ABP, PAP, CO, CI - Last Documented Arterial Blood Pressure 114/62 Pulmonary Artery Pressure 38/22 Cardiac Output 5.6 Cardiac Index 2.9 - Labs CBC & Chem 7: 09/17/16 04:55 09/17/16 04:55 Labs: Abnormal Lab Results - Last 24 Hours (Table) 09/15/16 09/16/16 09/16/16 Range/Units 12:45 13:10 14:04 WBC (3.8-10.6) k/uL RBC (4.30-5.90) m/uL Hgb (13.0-17.5) gm/dL Hct (39.0-53.0) % Neutrophils # (1.3-7.7) k/uL ABG pH (7.35-7.45) ABG pCO2 (35-45) mmHg ABG HCO3 (21-25) mmol/L ABG O2 Saturation (94-97) % Sodium (137-145) mmol/L Chloride (98-107) mmol/L BUN (9-20) mg/dL Creatinine (0.66-1.25) mg/dL Glucose (74-99) mg/dL POC Glucose (mg/dL) 136 H 124 H (75-99) mg/dL Calcium (8.4-10.2) mg/dL Magnesium (1.6-2.3) mg/dL AST (17-59) U/L ALT (21-72) U/L Total Protein (6.3-8.2) g/dL Albumin (3.5-5.0) g/dL Crossmatch See Detail 09/16/16 09/16/16 09/16/16 Range/Units 15:02 16:16 16:52 WBC (3.8-10.6) k/uL RBC (4.30-5.90) m/uL Hgb (13.0-17.5) gm/dL Hct (39.0-53.0) % Neutrophils # (1.3-7.7) k/uL ABG pH (7.35-7.45) ABG pCO2 (35-45) mmHg ABG HCO3 (21-25) mmol/L ABG O2 Saturation (94-97) % Sodium (137-145) mmol/L Chloride (98-107) mmol/L BUN (9-20) mg/dL Creatinine (0.66-1.25) mg/dL Glucose (74-99) mg/dL POC Glucose (mg/dL) 119 H 116 H 113 H (75-99) mg/dL Calcium (8.4-10.2) mg/dL Magnesium (1.6-2.3) mg/dL AST (17-59) U/L ALT (21-72) U/L Total Protein (6.3-8.2) g/dL Albumin (3.5-5.0) g/dL Crossmatch 09/16/16 09/16/16 09/16/16 Range/Units 17:23 17:55 19:08 WBC (3.8-10.6) k/uL RBC (4.30-5.90) m/uL Hgb (13.0-17.5) gm/dL Hct (39.0-53.0) % Neutrophils # (1.3-7.7) k/uL ABG pH 7.49 H (7.35-7.45) ABG pCO2 27 L (35-45) mmHg ABG HCO3 20 L (21-25) mmol/L ABG O2 Saturation (94-97) % Sodium (137-145) mmol/L Chloride (98-107) mmol/L BUN (9-20) mg/dL Creatinine (0.66-1.25) mg/dL Glucose (74-99) mg/dL POC Glucose (mg/dL) 143 H 149 H (75-99) mg/dL Calcium (8.4-10.2) mg/dL Magnesium (1.6-2.3) mg/dL AST (17-59) U/L ALT (21-72) U/L Total Protein (6.3-8.2) g/dL Albumin (3.5-5.0) g/dL Crossmatch 09/16/16 09/16/16 09/16/16 Range/Units 19:51 20:49 22:19 WBC (3.8-10.6) k/uL RBC (4.30-5.90) m/uL Hgb (13.0-17.5) gm/dL Hct (39.0-53.0) % Neutrophils # (1.3-7.7) k/uL ABG pH (7.35-7.45) ABG pCO2 (35-45) mmHg ABG HCO3 (21-25) mmol/L ABG O2 Saturation (94-97) % Sodium (137-145) mmol/L Chloride (98-107) mmol/L BUN (9-20) mg/dL Creatinine (0.66-1.25) mg/dL Glucose (74-99) mg/dL POC Glucose (mg/dL) 138 H 126 H 107 H (75-99) mg/dL Calcium (8.4-10.2) mg/dL Magnesium (1.6-2.3) mg/dL AST (17-59) U/L ALT (21-72) U/L Total Protein (6.3-8.2) g/dL Albumin (3.5-5.0) g/dL Crossmatch 09/16/16 09/17/16 09/17/16 Range/Units 22:54 00:20 01:20 WBC (3.8-10.6) k/uL RBC (4.30-5.90) m/uL Hgb (13.0-17.5) gm/dL Hct (39.0-53.0) % Neutrophils # (1.3-7.7) k/uL ABG pH (7.35-7.45) ABG pCO2 (35-45) mmHg ABG HCO3 (21-25) mmol/L ABG O2 Saturation (94-97) % Sodium (137-145) mmol/L Chloride (98-107) mmol/L BUN (9-20) mg/dL Creatinine (0.66-1.25) mg/dL Glucose (74-99) mg/dL POC Glucose (mg/dL) 104 H 136 H 135 H (75-99) mg/dL Calcium (8.4-10.2) mg/dL Magnesium (1.6-2.3) mg/dL AST (17-59) U/L ALT (21-72) U/L Total Protein (6.3-8.2) g/dL Albumin (3.5-5.0) g/dL Crossmatch 09/17/16 09/17/16 09/17/16 Range/Units 02:04 03:17 04:08 WBC (3.8-10.6) k/uL RBC (4.30-5.90) m/uL Hgb (13.0-17.5) gm/dL Hct (39.0-53.0) % Neutrophils # (1.3-7.7) k/uL ABG pH (7.35-7.45) ABG pCO2 (35-45) mmHg ABG HCO3 (21-25) mmol/L ABG O2 Saturation (94-97) % Sodium (137-145) mmol/L Chloride (98-107) mmol/L BUN (9-20) mg/dL Creatinine (0.66-1.25) mg/dL Glucose (74-99) mg/dL POC Glucose (mg/dL) 125 H 113 H 105 H (75-99) mg/dL Calcium (8.4-10.2) mg/dL Magnesium (1.6-2.3) mg/dL AST (17-59) U/L ALT (21-72) U/L Total Protein (6.3-8.2) g/dL Albumin (3.5-5.0) g/dL Crossmatch 09/17/16 09/17/16 09/17/16 Range/Units 04:55 04:55 04:55 WBC 11.0 H (3.8-10.6) k/uL RBC 2.77 L (4.30-5.90) m/uL Hgb 8.2 L (13.0-17.5) gm/dL Hct 25.6 L (39.0-53.0) % Neutrophils # 9.4 H (1.3-7.7) k/uL ABG pH (7.35-7.45) ABG pCO2 (35-45) mmHg ABG HCO3 (21-25) mmol/L ABG O2 Saturation (94-97) % Sodium 147 H (137-145) mmol/L Chloride 115 H (98-107) mmol/L BUN 34 H (9-20) mg/dL Creatinine 1.90 H (0.66-1.25) mg/dL Glucose 107 H (74-99) mg/dL POC Glucose (mg/dL) 120 H (75-99) mg/dL Calcium 8.2 L (8.4-10.2) mg/dL Magnesium 2.6 H (1.6-2.3) mg/dL AST 115 H (17-59) U/L ALT 78 H (21-72) U/L Total Protein 5.1 L (6.3-8.2) g/dL Albumin 3.4 L (3.5-5.0) g/dL Crossmatch 09/17/16 09/17/16 09/17/16 Range/Units 06:12 06:56 07:23 WBC (3.8-10.6) k/uL RBC (4.30-5.90) m/uL Hgb (13.0-17.5) gm/dL Hct (39.0-53.0) % Neutrophils # (1.3-7.7) k/uL ABG pH 7.49 H (7.35-7.45) ABG pCO2 27 L (35-45) mmHg ABG HCO3 20 L (21-25) mmol/L ABG O2 Saturation 99.0 H (94-97) % Sodium (137-145) mmol/L Chloride (98-107) mmol/L BUN (9-20) mg/dL Creatinine (0.66-1.25) mg/dL Glucose (74-99) mg/dL POC Glucose (mg/dL) 128 H 125 H (75-99) mg/dL Calcium (8.4-10.2) mg/dL Magnesium (1.6-2.3) mg/dL AST (17-59) U/L ALT (21-72) U/L Total Protein (6.3-8.2) g/dL Albumin (3.5-5.0) g/dL Crossmatch 09/17/16 09/17/16 09/17/16 Range/Units 08:34 11:03 12:41 WBC (3.8-10.6) k/uL RBC (4.30-5.90) m/uL Hgb (13.0-17.5) gm/dL Hct (39.0-53.0) % Neutrophils # (1.3-7.7) k/uL ABG pH (7.35-7.45) ABG pCO2 (35-45) mmHg ABG HCO3 (21-25) mmol/L ABG O2 Saturation (94-97) % Sodium (137-145) mmol/L Chloride (98-107) mmol/L BUN (9-20) mg/dL Creatinine (0.66-1.25) mg/dL Glucose (74-99) mg/dL POC Glucose (mg/dL) 108 H 120 H 135 H (75-99) mg/dL Calcium (8.4-10.2) mg/dL Magnesium (1.6-2.3) mg/dL AST (17-59) U/L ALT (21-72) U/L Total Protein (6.3-8.2) g/dL Albumin (3.5-5.0) g/dL Crossmatch Assessment and Plan Plan: Assessment: #1. Nonoliguric acute kidney injury secondary to an secondary to hemodynamic instability and acute OH. Patient also received contrast dye from cardiac catheterization in September 15. Creatinine peaked at 2 and is down to 1.9 today. #2. Chronic kidney disease stage III secondary to diabetic kidney disease with baseline creatinine near 1.5. #3. Metabolic acidosis secondary to acute kidney injury. #4. Volume overload. Improved. Status post 40 mg IV Lasix this morning. #5. Coronary artery disease status post cardiac catheterization and emergent CABG on September 15. #6. Hyperkalemia related to acute kidney injury and use of lactated Ringer's. #7. Hypernatremia secondary to lack of oral water intake. Plan: I will change IV fluids to half-normal saline to be run at 60 mL an hour. Avoid nephrotoxic agents and hypotensive episodes. Hold lisinopril for now. Continue to monitor renal function and urine output. Repeat electrolytes in the morning.
[2016-09-17 14:30] LABS: Glucose,Whole Blood 138 mg/dL (75-99)
[2016-09-17 17:09] LABS: Glucose,Whole Blood 126 mg/dL (75-99)
--- NOTE | 2016-09-17 17:20 | PN ---
DATE OF SERVICE: 09/17/2016 This patient is sleepy but arousable. He has not been using his incentive spirometer. He is breathing quite shallow and had to be on BiPAP. On physical examination, blood pressure is 117/62, respiratory rate of 12, pulse rate of 92, temperature 99.4. Oxygen saturation on 15 L by nasal cannula is 98%. HEENT reveals no new changes. Chest reveals decreased breath sounds at the bases with scattered rhonchi. Cardiovascular system reveals an S1, S2. Abdomen is soft. There is 1+ pedal edema. ABG showed pH of 7.49, pCO2 of 27, pO2 of 107, bicarb of 20, oxygen saturation of 99%. Blood sugar is 106. White count is 11, hemoglobin 8.2. BUN of 34, creatinine of 1.9. IMPRESSION AT THIS TIME: 1. Coronary artery disease, status post coronary artery bypass. 2. Congestive heart failure with cardiomyopathy and ejection fraction of 30%. 3. Pulmonary edema. 4. History of cerebrovascular accident. 5. Chronic obstructive pulmonary disease with previous nicotine abuse. 6. Diabetes mellitus, type 2. At this point in time, continue supplemental oxygen, encourage incentive spirometry and increase his activity level. Use BiPAP as needed. Follow his kidney function. Optimize his fluid status. Depending on how he does, we shall make further changes to his care.
--- NOTE | 2016-09-17 17:41 | P.CONS ---
History of Present Illness - Chief Complaint Cardiac debility - History of Present Illness I had the opportunity to see patient for inpatient rehab consultation with regard to cardiac debility. He was admitted to [facility] September 15 with severe shortness of breath and non-STEMI. Seen by cardiology for same. Seen by Dr. Lester who notes acute kidney injury. Seen by Dr. brown for acute respiratory failure, hypoxic. PT prescribed and I have added OT. Serial chest x-rays followed. Most recent demonstrates surgical change, bibasilar atelectasis and effusions and subcu emphysema. Previous functional history, as elicited from patient and : 60-year-old right-handed white male who is lives and 2 floor home tired/disabled. Independent with cooking and driving. does the laundry and driving. Patient independent with standing shower and gait with occasional need of quad cane. Family history of mother with OR. Review of Systems Review of systems: ENT: Denies sneezes or discharge. Eyes: Denies discharge or photophobia. Cardiac: Sternal chest discomfort. Pulmonary: At least mild shortness of breath. Gastrointestinal: Denies nausea, emesis, constipation, diarrhea. Genitourinary: Denies discharge or frequency. Musculoskeletal: Chronic back pain. Neurologic: Generalized weakness. Endocrine: Denies shakes or sweats. Oncology: Denies cancers. Dermatologic: Denies rash, itching, pruritus. ALLERGY/immunology: Denies sneezes, rashes. Past Medical History Past Medical History: Chest Pain / Angina, COPD, CVA/TIA, Diabetes Mellitus, Hyperlipidemia, Hypertension, Osteoarthritis (OA), Renal Disease, Supraventricular Tachycardia (SVT), Syncope, Vascular Disorder Additional Past Medical History / Comment(s): BACK PAIN History of Any Multi-Drug Resistant Organisms: None Reported Past Surgical History: Appendectomy, Hernia Repair, Joint Replacement Additional Past Surgical History / Comment(s): RIGHT HIP REPLACEMENT Past Anesthesia/Blood Transfusion Reactions: No Reported Reaction Past Psychological History: No Psychological Hx Reported Smoking Status: Current every day smoker Additional Past Alcohol Use History / Comment(s): 3 cigarellos a day - Past Family History Father Family Medical History: Myocardial Infarction (OR) Mother Family Medical History: Coronary Artery Disease (CAD) Daughter(s) Family Medical History: No Reported History Son(s) Family Medical History: No Reported History Medications and Allergies Home Medications Medication Instructions Recorded Confirmed Type Cholecalciferol [Vitamin D3] 1,000 unit PO DAILY@1200 10/07/13 09/15/16 History Fenofibrate Nanocrystallized 145 mg PO DAILY 10/07/13 09/15/16 History [Tricor] Lisinopril [Prinivil] 10 mg PO BID 10/07/13 09/15/16 History Magnesium 200 mg PO DAILY 10/07/13 09/15/16 History Melatonin 5 mg PO HS 10/07/13 09/15/16 History Simvastatin [Zocor] 40 mg PO HS 10/07/13 09/15/16 History Etodolac [Lodine] 300 mg PO BID 10/20/15 09/15/16 History Fluticasone Nasal [place] [Flonase 1 spray EA NOSTRIL DAILY PRN 10/20/15 09/15/16 History Nasal [place]] Insulin Aspart [NovoLOG] See Protocol SQ ACHS 09/15/16 09/15/16 History Insulin Detemir [Levemir] 40 units SQ AC-BRKFST 09/15/16 09/15/16 History Insulin Detemir [Levemir] 45 unit SQ HS 09/15/16 09/15/16 History Allergies Allergy/AdvReac Type Severity Reaction Status Date / Time No Known Allergies Allergy Verified 09/15/16 07:48 Physical Exam Vitals: Vital Signs Temp Pulse Pulse Resp Pulse Ox 09/17/16 17:00 96 96 09/17/16 16:36 98 09/17/16 16:25 96 09/17/16 16:00 99.0 F 96 91 L 09/17/16 15:00 91 94 L 09/17/16 14:00 95 96 09/17/16 13:00 92 98 09/17/16 12:50 92 09/17/16 12:00 99.4 F 93 88 22 93 L 09/17/16 11:00 92 98 09/17/16 10:00 94 94 L 09/17/16 09:50 93 L 09/17/16 09:00 102 H 87 L 09/17/16 08:26 98 09/17/16 08:16 97 09/17/16 08:00 96 88 22 99 09/17/16 07:00 97 22 98 09/17/16 06:00 102 H 20 98 09/17/16 05:06 101 H 09/17/16 05:00 99 19 98 09/17/16 04:53 99 09/17/16 04:00 98.8 F 101 H 19 98 09/17/16 03:20 88 24 09/17/16 03:00 100 22 98 09/17/16 02:00 104 H 44 H 85 L 09/17/16 01:53 106 H 09/17/16 01:40 106 H 09/17/16 01:00 102 H 24 94 L 09/17/16 00:00 99 F 103 H 88 22 96 09/16/16 23:30 106 H 96 09/16/16 23:00 111 H 95 09/16/16 22:32 96 09/16/16 22:00 111 H 94 L 09/16/16 21:00 112 H 94 L 09/16/16 20:10 111 H 09/16/16 20:00 109 H 88 24 95 09/16/16 19:56 111 H 09/16/16 19:00 114 H 94 L 09/16/16 18:00 113 H 94 L Intake and Output 09/17/16 09/17/16 09/17/16 06:59 14:59 22:59 Intake Total 663.103 579.453 Output Total 1160 920 100 Balance -496.897 -340.547 -100 Intake: IV 570.7 99 CO/CI 63 10 Lactated Ringers 1,000 ml 400 50 @ 50 mls/hr IV .Q20H [facility] Rx#:[id number] Nitroglycerin-D5w Pmx 50 1.5 mg In Dextrose/Water 1 250ml.bag @ 5 MCG/MIN 1.5 mls/hr IV .Q24H [facility] Rx#: [id number] Pressure Bag 72 39 Primacor 34.2 Intake, IV Titration 92.403 240.453 Amount Dexmedetomidine in 0.9 % 40.8 NaCl 400 mcg In Empty Bag 1 bag @ Titrate IV .Q0M [facility] Rx#:[id number] Insulin Regular 100 unit 10.318 9.653 In Sodium Chloride 0.9% 100 ml @ Per Protocol IV .Q0M [facility] Rx#:[id number] Milrinone-D5w Pmx 20 mg 47.333 In Dextrose/Water 1 100ml .bag @ 0.25 MCG/KG/MIN 6. 12 mls/hr IV .[id number] [facility] Rx#:[id number] Norepinephrin 16 mg-0.9% 34.752 Ns Pmx 16 mg In 250 ml @ Titrate IV .Q0M [facility] Rx#: [id number] Sodium Chloride 0.45% 1, 80 000 ml @ 60 mls/hr IV . [id number] [facility] Rx#:[id number] Sodium Chloride 0.9% 1, 110 000 ml @ 50 mls/hr IV . Q20H [facility] Rx#:[id number] Oral 240 Output: Chest Tube Drainage 260 170 Bilateral Mediastinal 130 80 Left Pleural 130 90 Drainage 75 Left [place] 75 Urine 825 750 100 Other: Voiding Method Indwelling Catheter Indwelling Catheter # Voids 1 1 Weight 90.2 kg 90.2 kg 90.2 kg Patient Weight 09/18/16 06:59 Weight 90.2 kg ABP, PAP, CO, CI - Last 8 Hours Arterial Blood Pressure 122/58 Arterial Blood Pressure 123/61 Arterial Blood Pressure 106/58 Arterial Blood Pressure 103/54 Arterial Blood Pressure 117/62 Arterial Blood Pressure 114/62 Arterial Blood Pressure 110/60 Arterial Blood Pressure 101/59 Skin: Good color, texture, turgor. General: Overweight and slightly uncomfortable appearance. Head: Normocephalic, atraumatic. Eyes: Symmetric. Pupils equal round. Ears: Symmetric. Hearing within normal limits. Mouth: Clear. Neck: Supple. Carotid without bruit. Cardiac: Midline sternotomy clean and dressed. Wearing harness. Lungs: Clear anteriorly and posteriorly. Abdomen: Soft active nontender overweight. Extremities: Normal tone. Neurological: Mental status: Alert, cooperative, pleasant. Cranial nerves: Symmetric facial tone and trapezius. Motor: Mild to moderate weakness right side as compared to left but generalized weakness with at best about antigravity. Sensation: Intact throughout. DTRs: Symmetric and equal throughout. Mobility: Requires nursing assistance for transfer to bed and chair. Results CBC & Chem 7: 09/17/16 04:55 09/17/16 04:55 Labs: Abnormal Lab Results - Last 24 Hours (Table) 09/15/16 09/16/16 09/16/16 Range/Units 12:45 17:23 17:55 WBC (3.8-10.6) k/uL RBC (4.30-5.90) m/uL Hgb (13.0-17.5) gm/dL Hct (39.0-53.0) % Neutrophils # (1.3-7.7) k/uL ABG pH 7.49 H (7.35-7.45) ABG pCO2 27 L (35-45) mmHg ABG HCO3 20 L (21-25) mmol/L ABG O2 Saturation (94-97) % Sodium (137-145) mmol/L Chloride (98-107) mmol/L BUN (9-20) mg/dL Creatinine (0.66-1.25) mg/dL Glucose (74-99) mg/dL POC Glucose (mg/dL) 143 H (75-99) mg/dL Calcium (8.4-10.2) mg/dL Magnesium (1.6-2.3) mg/dL AST (17-59) U/L ALT (21-72) U/L Total Protein (6.3-8.2) g/dL Albumin (3.5-5.0) g/dL Crossmatch See Detail 09/16/16 09/16/16 09/16/16 Range/Units 19:08 19:51 20:49 WBC (3.8-10.6) k/uL RBC (4.30-5.90) m/uL Hgb (13.0-17.5) gm/dL Hct (39.0-53.0) % Neutrophils # (1.3-7.7) k/uL ABG pH (7.35-7.45) ABG pCO2 (35-45) mmHg ABG HCO3 (21-25) mmol/L ABG O2 Saturation (94-97) % Sodium (137-145) mmol/L Chloride (98-107) mmol/L BUN (9-20) mg/dL Creatinine (0.66-1.25) mg/dL Glucose (74-99) mg/dL POC Glucose (mg/dL) 149 H 138 H 126 H (75-99) mg/dL Calcium (8.4-10.2) mg/dL Magnesium (1.6-2.3) mg/dL AST (17-59) U/L ALT (21-72) U/L Total Protein (6.3-8.2) g/dL Albumin (3.5-5.0) g/dL Crossmatch 09/16/16 09/16/16 09/17/16 Range/Units 22:19 22:54 00:20 WBC (3.8-10.6) k/uL RBC (4.30-5.90) m/uL Hgb (13.0-17.5) gm/dL Hct (39.0-53.0) % Neutrophils # (1.3-7.7) k/uL ABG pH (7.35-7.45) ABG pCO2 (35-45) mmHg ABG HCO3 (21-25) mmol/L ABG O2 Saturation (94-97) % Sodium (137-145) mmol/L Chloride (98-107) mmol/L BUN (9-20) mg/dL Creatinine (0.66-1.25) mg/dL Glucose (74-99) mg/dL POC Glucose (mg/dL) 107 H 104 H 136 H (75-99) mg/dL Calcium (8.4-10.2) mg/dL Magnesium (1.6-2.3) mg/dL AST (17-59) U/L ALT (21-72) U/L Total Protein (6.3-8.2) g/dL Albumin (3.5-5.0) g/dL Crossmatch 09/17/16 09/17/16 09/17/16 Range/Units 01:20 02:04 03:17 WBC (3.8-10.6) k/uL RBC (4.30-5.90) m/uL Hgb (13.0-17.5) gm/dL Hct (39.0-53.0) % Neutrophils # (1.3-7.7) k/uL ABG pH (7.35-7.45) ABG pCO2 (35-45) mmHg ABG HCO3 (21-25) mmol/L ABG O2 Saturation (94-97) % Sodium (137-145) mmol/L Chloride (98-107) mmol/L BUN (9-20) mg/dL Creatinine (0.66-1.25) mg/dL Glucose (74-99) mg/dL POC Glucose (mg/dL) 135 H 125 H 113 H (75-99) mg/dL Calcium (8.4-10.2) mg/dL Magnesium (1.6-2.3) mg/dL AST (17-59) U/L ALT (21-72) U/L Total Protein (6.3-8.2) g/dL Albumin (3.5-5.0) g/dL Crossmatch 09/17/16 09/17/16 09/17/16 Range/Units 04:08 04:55 04:55 WBC 11.0 H (3.8-10.6) k/uL RBC 2.77 L (4.30-5.90) m/uL Hgb 8.2 L (13.0-17.5) gm/dL Hct 25.6 L (39.0-53.0) % Neutrophils # 9.4 H (1.3-7.7) k/uL ABG pH (7.35-7.45) ABG pCO2 (35-45) mmHg ABG HCO3 (21-25) mmol/L ABG O2 Saturation (94-97) % Sodium 147 H (137-145) mmol/L Chloride 115 H (98-107) mmol/L BUN 34 H (9-20) mg/dL Creatinine 1.90 H (0.66-1.25) mg/dL Glucose 107 H (74-99) mg/dL POC Glucose (mg/dL) 105 H (75-99) mg/dL Calcium 8.2 L (8.4-10.2) mg/dL Magnesium 2.6 H (1.6-2.3) mg/dL AST 115 H (17-59) U/L ALT 78 H (21-72) U/L Total Protein 5.1 L (6.3-8.2) g/dL Albumin 3.4 L (3.5-5.0) g/dL Crossmatch 09/17/16 09/17/16 09/17/16 Range/Units 04:55 06:12 06:56 WBC (3.8-10.6) k/uL RBC (4.30-5.90) m/uL Hgb (13.0-17.5) gm/dL Hct (39.0-53.0) % Neutrophils # (1.3-7.7) k/uL ABG pH (7.35-7.45) ABG pCO2 (35-45) mmHg ABG HCO3 (21-25) mmol/L ABG O2 Saturation (94-97) % Sodium (137-145) mmol/L Chloride (98-107) mmol/L BUN (9-20) mg/dL Creatinine (0.66-1.25) mg/dL Glucose (74-99) mg/dL POC Glucose (mg/dL) 120 H 128 H 125 H (75-99) mg/dL Calcium (8.4-10.2) mg/dL Magnesium (1.6-2.3) mg/dL AST (17-59) U/L ALT (21-72) U/L Total Protein (6.3-8.2) g/dL Albumin (3.5-5.0) g/dL Crossmatch 09/17/16 09/17/16 09/17/16 Range/Units 07:23 08:34 11:03 WBC (3.8-10.6) k/uL RBC (4.30-5.90) m/uL Hgb (13.0-17.5) gm/dL Hct (39.0-53.0) % Neutrophils # (1.3-7.7) k/uL ABG pH 7.49 H (7.35-7.45) ABG pCO2 27 L (35-45) mmHg ABG HCO3 20 L (21-25) mmol/L ABG O2 Saturation 99.0 H (94-97) % Sodium (137-145) mmol/L Chloride (98-107) mmol/L BUN (9-20) mg/dL Creatinine (0.66-1.25) mg/dL Glucose (74-99) mg/dL POC Glucose (mg/dL) 108 H 120 H (75-99) mg/dL Calcium (8.4-10.2) mg/dL Magnesium (1.6-2.3) mg/dL AST (17-59) U/L ALT (21-72) U/L Total Protein (6.3-8.2) g/dL Albumin (3.5-5.0) g/dL Crossmatch 09/17/16 09/17/16 09/17/16 Range/Units 12:41 14:28 17:06 WBC (3.8-10.6) k/uL RBC (4.30-5.90) m/uL Hgb (13.0-17.5) gm/dL Hct (39.0-53.0) % Neutrophils # (1.3-7.7) k/uL ABG pH (7.35-7.45) ABG pCO2 (35-45) mmHg ABG HCO3 (21-25) mmol/L ABG O2 Saturation (94-97) % Sodium (137-145) mmol/L Chloride (98-107) mmol/L BUN (9-20) mg/dL Creatinine (0.66-1.25) mg/dL Glucose (74-99) mg/dL POC Glucose (mg/dL) 135 H 138 H 126 H (75-99) mg/dL Calcium (8.4-10.2) mg/dL Magnesium (1.6-2.3) mg/dL AST (17-59) U/L ALT (21-72) U/L Total Protein (6.3-8.2) g/dL Albumin (3.5-5.0) g/dL Crossmatch Chest x-ray: report reviewed (Chest x-rays followed for postsurgical change, bibasilar atelectasis and effusions, subcu emphysema) Assessment and Plan (1) Elevated troponin I level Status: Acute Plan: Impression: 1. Cardiac debility. 2. Non-STEMI. History of chest pain and angina 3. 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 4. COPD. 5. History of stroke and right hemiparesthesias. 6. Diabetes. 7. Hypertension. 8. Dyslipidemia. 9. Syncope. 10. Chronic kidney disease. Comments and plan: At this time PT is prescribed and I have added OT and [employer] 1[employer]. Follow with yourself. Anticipate safety concerns and possible need of inpatient rehab. Patient a past patient of inpatient rehab and both patient and were pleased with that experience.
[2016-09-17] MEDS: SODIUM CHLORIDE 0.45% 1,000 ML IV SCH (18:27)
[2016-09-17] MEDS: BUDESONIDE 0.5 MG/2 ML NEBU INHALATION SCH (19:29)
[2016-09-17 20:08] LABS: Glucose,Whole Blood 184 mg/dL (75-99)
[2016-09-17] MEDS: SENNOSIDES-DOCUSATE SODIUM 1 EACH TAB PO SCH (20:54)
[2016-09-17 22:46] LABS: Glucose,Whole Blood 85 mg/dL (75-99)
[2016-09-18 00:07] LABS: Glucose,Whole Blood 91 mg/dL (75-99)
[2016-09-18] MEDS: HEPARIN SODIUM,PORCINE 5,000 UNIT/ML 1 ML VIAL SQ SCH ×3 (00:28→17:01)
[2016-09-18] MEDS: HYDROcodone/APAP 5-325MG 1 EACH TAB PO PRN ×5 (00:30→21:59)
[2016-09-18] MEDS: MORPHINE SULFATE 2 MG/ML SYRINGE IVP PRN (02:04)
[2016-09-18 02:22] LABS: Glucose,Whole Blood 134 mg/dL (75-99)
[2016-09-18 04:20] LABS: Glucose,Whole Blood 125 mg/dL (75-99)
[2016-09-18 04:39] LABS: Basophils # (A) 0.1 k/uL (0-0.2); Basophils % (A) 0 %; CH 28.7; CHCM 31.5; Eosinophils # (A) 0.1 k/uL (0-0.7); Eosinophils % (A) 1 %; HCT 28.1 % (39.0-53.0); HDW 2.87; HGB 8.8 gm/dL (13.0-17.5); Hypochromasia Slight; Luc # (Auto) 0.13; Luc % (Auto) 1; Lymphocytes # (A) 1.2 k/uL (1.0-4.8); Lymphocytes % (A) 11 %; MCH 28.9 pg (25.0-35.0); MCHC 31.4 g/dL (31.0-37.0); Mean Platelet Volume 7.7; Monocytes # (A) 0.4 k/uL (0-1.0); Monocytes % (A) 3 %; Neutrophils # (A) 9.5 k/uL (1.3-7.7); Neutrophils % (A) 83 %; RBC 3.05 m/uL (4.30-5.90); RDW 14.3 % (11.5-15.5); WBC 11.4 k/uL (3.8-10.6); WBC (Perox) 11.34
[2016-09-18 04:53] LABS: Calcium 8.3 mg/dL (8.4-10.2); Potassium 4.6 mmol/L (3.5-5.1); Total Bilirubin 0.5 mg/dL (0.2-1.3); Total Protein 5.4 g/dL (6.3-8.2)
[2016-09-18 06:23] LABS: Glucose,Whole Blood 90 mg/dL (75-99)
--- NOTE | 2016-09-18 07:06 | XR ---
EXAMINATION TYPE: XR chest 1V portable DATE OF EXAM: 09/18/2016 CLINICAL HISTORY: Difficulty breathing progress study. Post open cardiac surgery. TECHNIQUE: Single AP portable upright view of the chest is obtained. COMPARISON: Chest x-ray from one day earlier FINDINGS: There is interval removal of right internal jugular Flaxton-Myrtle catheter, right sided cordis sheath remains present. There is left basilar chest tube with adjacent subcutaneous emphysema and 2 mediastinal drainage cath eters that remains present. Sternal wires and mediastinal clips are redemonstrated. There is persistent cardiomegaly with moderate central vascular congestion. There is persistent bibas ilar opacity consistent with infiltrate and/or atelectasis and probable small bilateral pleural effus ions. No sizable pneumothorax is seen bilaterally. Osseous structures are intact. IMPRESSION: Persistent cardiomegaly with moderate central vascular congestion and bibasilar infiltrat e and/or atelectasis and likely small bilateral pleural effusions all redemonstrated.
[2016-09-18] MEDS: IPRATROPIUM-ALBUTEROL 3 ML NEB INHALATION PRN (07:12)
[2016-09-18] MEDS: BUDESONIDE 0.5 MG/2 ML NEBU INHALATION SCH ×2 (07:12→20:09)
[2016-09-18 08:37] LABS: Glucose,Whole Blood 123 mg/dL (75-99)
[2016-09-18 08:41] VITALS: BMI 34.7
[2016-09-18] MEDS: INSULIN LISPRO (humaLOG) 300 UNIT/3 ML VIAL SQ SCH ×4 (08:48→21:40)
[2016-09-18] MEDS: ASPIRIN 325 MG TAB PO SCH (08:49)
[2016-09-18] MEDS: ATORVASTATIN 40 MG TAB PO SCH (08:49)
[2016-09-18] MEDS: CLOPIDOGREL 75 MG TAB PO SCH (08:50)
[2016-09-18] MEDS: MUPIROCIN 2% OINT 22 GM TUBE NASAL SCH ×2 (08:53→21:34)
[2016-09-18] MEDS: PANTOPRAZOLE 40 MG/10 ML VIAL IVP SCH (08:54)
[2016-09-18] MEDS ORDERED: METOPROLOL TARTRATE 25 MG TAB PO SCH (09:00)
[2016-09-18] MEDS: METOPROLOL TARTRATE 25 MG TAB PO SCH ×3 (11:03→22:43)
[2016-09-18] MEDS: SODIUM CHLORIDE 0.45% 1,000 ML IV SCH (11:03)
[2016-09-18] MEDS: hydrALAZINE HCL 25 MG TAB PO SCH ×2 (11:08→21:34)
--- NOTE | 2016-09-18 11:37 | P.PN ---
Subjective Patient is seen in follow-up for acute kidney injury on chronic kidney disease. Patient has chronic kidney disease stage III secondary to diabetic kidney disease with baseline creatinine near 1.5. Creatinine peaked at 2 and is down to 1.76 today. Patient presented with dyspnea and flash pulmonary edema. Patient underwent a cardiac catheterization on September 16 which revealed triple- vessel disease and subsequently underwent emergent CABG on September 16. He was extubated on September 16. Balloon pump has been removed and Primacor drip has been discontinued as well. He is nonoliguric. Oral intake has improved. Hemodynamically stable. Vital signs are stable. General: The patient appeared well nourished and normally developed. Intubated. HEENT: Head exam is unremarkable. Neck is without jugular venous distension. LUNGS: Scattered rhonchi. Breath sounds decreased. HEART: Rate and Rhythm are regular. First and second heart sounds normal. No murmurs, rubs or gallops. ABDOMEN: Abdominal exam reveals normal bowel sounds. Non-tender and non- distended. No evidence of peritonitis. EXTREMITITES: No clubbing, cyanosis, or edema. Objective - Vital Signs Vital signs: Vital Signs Temp 98.7 F 09/18/16 08:00 Pulse 81 09/18/16 11:00 Resp 17 09/18/16 11:00 BP 95/52 09/16/16 16:00 Pulse Ox 98 09/18/16 11:00 Intake & Output 09/17/16 09/18/16 09/18/16 18:59 06:59 18:59 Intake Total 433.548 7543.028 170 Output Total 1545 1300 285 Balance -735.547 85.028 -115 Weight 90.2 kg 91.7 kg 91.7 kg Intake: IV 129 72 130 CO/CI 10 Lactated Ringers 1,000 ml 50 100 @ 50 mls/hr IV .Q20H [facility] Rx#:[id number] Pressure Bag 69 72 30 Intake, IV Titration 440.453 513.028 40 Amount Dexmedetomidine in 0.9 % 40.8 NaCl 400 mcg In Empty Bag 1 bag @ Titrate IV .Q0M [facility] Rx#:[id number] Insulin Regular 100 unit 9.653 33.028 In Sodium Chloride 0.9% 100 ml @ Per Protocol IV .Q0M [facility] Rx#:[id number] Sodium Chloride 0.45% 1, 280 40 000 ml @ 60 mls/hr IV . [id number] [facility] Rx#:[id number] Sodium Chloride 0.9% 1, 110 440 40 000 ml @ 50 mls/hr IV . Q20H [facility] Rx#:[id number] Oral 240 800 Output: Chest Tube Drainage 340 460 30 Bilateral Mediastinal 150 140 10 Left Pleural 190 320 20 Drainage 20 80 Left Whiting 20 80 Urine 1185 760 255 Other: Voiding Method Indwelling Catheter Indwelling Catheter Indwelling Catheter # Voids 1 ABP, PAP, CO, CI - Last Documented Arterial Blood Pressure 128/70 Pulmonary Artery Pressure 38/22 Cardiac Output 5.6 Cardiac Index 2.9 - Labs CBC & Chem 7: 09/18/16 04:18 09/18/16 04:18 Labs: Abnormal Lab Results - Last 24 Hours (Table) 09/17/16 09/17/16 09/17/16 Range/Units 12:41 14:28 17:06 WBC (3.8-10.6) k/uL RBC (4.30-5.90) m/uL Hgb (13.0-17.5) gm/dL Hct (39.0-53.0) % Neutrophils # (1.3-7.7) k/uL Chloride (98-107) mmol/L Carbon Dioxide (22-30) mmol/L BUN (9-20) mg/dL Creatinine (0.66-1.25) mg/dL Glucose (74-99) mg/dL POC Glucose (mg/dL) 135 H 138 H 126 H (75-99) mg/dL Calcium (8.4-10.2) mg/dL AST (17-59) U/L ALT (21-72) U/L Total Protein (6.3-8.2) g/dL Albumin (3.5-5.0) g/dL 09/17/16 09/18/16 09/18/16 Range/Units 20:07 02:19 04:18 WBC 11.4 H (3.8-10.6) k/uL RBC 3.05 L (4.30-5.90) m/uL Hgb 8.8 L (13.0-17.5) gm/dL Hct 28.1 L (39.0-53.0) % Neutrophils # 9.5 H (1.3-7.7) k/uL Chloride (98-107) mmol/L Carbon Dioxide (22-30) mmol/L BUN (9-20) mg/dL Creatinine (0.66-1.25) mg/dL Glucose (74-99) mg/dL POC Glucose (mg/dL) 184 H 134 H (75-99) mg/dL Calcium (8.4-10.2) mg/dL AST (17-59) U/L ALT (21-72) U/L Total Protein (6.3-8.2) g/dL Albumin (3.5-5.0) g/dL 09/18/16 09/18/16 09/18/16 Range/Units 04:18 04:18 08:35 WBC (3.8-10.6) k/uL RBC (4.30-5.90) m/uL Hgb (13.0-17.5) gm/dL Hct (39.0-53.0) % Neutrophils # (1.3-7.7) k/uL Chloride 112 H (98-107) mmol/L Carbon Dioxide 20 L (22-30) mmol/L BUN 39 H (9-20) mg/dL Creatinine 1.76 H (0.66-1.25) mg/dL Glucose 111 H (74-99) mg/dL POC Glucose (mg/dL) 125 H 123 H (75-99) mg/dL Calcium 8.3 L (8.4-10.2) mg/dL AST 100 H (17-59) U/L ALT 97 H (21-72) U/L Total Protein 5.4 L (6.3-8.2) g/dL Albumin 3.2 L (3.5-5.0) g/dL Assessment and Plan Plan: Assessment: #1. Nonoliguric acute kidney injury secondary to an secondary to hemodynamic instability and acute AR. Patient also received contrast dye from cardiac catheterization in September 15. Creatinine peaked at 2 and is down to 1.9 today. #2. Chronic kidney disease stage III secondary to diabetic kidney disease with baseline creatinine near 1.5. #3. Metabolic acidosis secondary to acute kidney injury. #4. Volume overload. Improved. #5. Coronary artery disease status post cardiac catheterization and emergent CABG on September 15. #6. Hyperkalemia related to acute kidney injury and use of lactated Ringer's. Resolved. #7. Hypernatremia secondary to lack of oral water intake. Improved. #8. Postoperative anemia. Hemoglobin stable. Plan: Okay to heplock IV fluids if tolerating oral intake. Avoid nephrotoxic agents and hypotensive episodes. Hold lisinopril for now. Continue to monitor renal function and urine output. Repeat electrolytes in the morning.
[2016-09-18 12:26] LABS: Glucose,Whole Blood 236 mg/dL (75-99)
--- NOTE | 2016-09-18 13:00 | P.PN ---
Subjective 61-year-old male one of my office patient of known for long time with past medical history of CVA, PAD, CAD, COPD, chronic smoking, diabetes, chronic neuropathy and stage III kidney disease who was the hospital last in September 2015 for CVA. Patient has been doing well his blood sugar has been slightly elevated. Patient went to sleep was feeling well he woke up around 2:00 after midnight gasping for air having significant shortness of breath with mild tightness and pressure with mild cold sweat than slight wheezes and cough. Patient ended up coming to the emergency department at [facility] where was seen and evaluated surprisingly his chest x-ray showed sign of pulmonary edema first EKGs shows slight T waves inversion second EKG had mild change as well and his troponin continued to be mildly elevated. Patient was diagnosed with acute pulmonary edema secondary to congestive heart failure and possible from acute currently syndrome. Patient risk factor of having coronary artery disease extremely high at the time. Patient will be seen cardiology and possible need for an intervention with heart catheter. His chronic kidney disease with the current creatinine is quite bit elevated will involve nephrology diuresis patient and add Nitrol hopefully patient be more stable at this point and I hope creatinine will improve enough to allow him to go for heart catheter when he is ready. 09/16: The patient had worsening dyspnea and flash pulmonary edema. He underwent a cardiac catheterization which revealed more than 90% diffuse left main stenosis with moderate stenosis of the right coronary artery with some collaterals through the septals to the left system. He underwent an emergent CABG and required placement of a intra aortic balloon pump, this was placed by Dr. Cowan in the geophysical laboratory supervisor. 2-D echo shows ejection fraction of 30% with no significant valvular abnormality. He is currently intubated and and is is on levophed and a primacor drip. He is also being followed by nephrology for his chronic kidney disease stage III. BUN 41, creatinine 1.78. Last chest x-ray showed vascular congestion and mild edema left basilar airspace disease, improving postoperative changes. The patient is also being followed by pulmonology. 09/17: The patient was extubated yesterday he did have some respiratory distress overnight and required placement of a BiPAP. Right femoral intra-aortic balloon pump was also removed yesterday he was weaned off levophed in Primacor drip was also turned off. Repeat chest x-ray showed postsurgical change worsening bibasilar airspace disease, small bilateral effusions, and worsening subcutaneous emphysema on the left. The patient continues to be followed by pulmonology. Kidney function slightly improved from yesterday BUN 34 creatinine 1.9. 09/18: The patient was evaluated today he was sitting up in the chair eating breakfast. The patient is off BiPAP and remains on nasal cannula. BUN/ creatinine remain elevated, but again have improved since yesterday nightly 39, creatinine 1.7. PT/OT was consulted. The patient will be encouraged to get out of bed and start to ambulate. chest x-ray shows persisting cardiomegaly with moderate central vascular congestion and bibasilar infiltrate or atelectasis and likely small bilateral pleural effusions. Left chest tube and two mediastinal drain catheters remain present. Objective - Vital Signs Vital signs: Vital Signs Temp 98.4 F 09/18/16 12:00 Pulse 82 09/18/16 12:00 Resp 14 09/18/16 12:00 BP 95/52 09/16/16 16:00 Pulse Ox 100 09/18/16 12:00 Intake & Output 09/17/16 09/18/16 09/18/16 18:59 06:59 18:59 Intake Total 537.150 4626.028 176 Output Total 1545 1300 385 Balance -735.547 85.028 -209 Weight 90.2 kg 91.7 kg 91.7 kg Intake: IV 129 72 136 CO/CI 10 Lactated Ringers 1,000 ml 50 100 @ 50 mls/hr IV .Q20H [facility] Rx#:[id number] Pressure Bag 69 72 36 Intake, IV Titration 440.453 513.028 40 Amount Dexmedetomidine in 0.9 % 40.8 NaCl 400 mcg In Empty Bag 1 bag @ Titrate IV .Q0M [facility] Rx#:[id number] Insulin Regular 100 unit 9.653 33.028 In Sodium Chloride 0.9% 100 ml @ Per Protocol IV .Q0M [facility] Rx#:[id number] Sodium Chloride 0.45% 1, 280 40 000 ml @ 60 mls/hr IV . [id number] [facility] Rx#:[id number] Sodium Chloride 0.9% 1, 110 440 40 000 ml @ 50 mls/hr IV . Q20H [facility] Rx#:[id number] Oral 240 800 Output: Chest Tube Drainage 340 460 30 Bilateral Mediastinal 150 140 10 Left Pleural 190 320 20 Drainage 20 80 Left Whiting 20 80 Urine 1185 760 355 Other: Voiding Method Indwelling Catheter Indwelling Catheter Indwelling Catheter # Voids 1 ABP, PAP, CO, CI - Last Documented Arterial Blood Pressure 135/75 Pulmonary Artery Pressure 38/22 Cardiac Output 5.6 Cardiac Index 2.9 - Exam - Constitutional General appearance: no average body habitus, cooperative, disheveled, no mild distress, no morbidly obese, no acute distress, no obese, no severe distress, no thin - EENT Eyes: abnormal pupil, no anicteric sclerae, no disc margins sharp, no edentulous , no EOMI, no PERRLA, no fundus normal, no photophobia, no dentition normal, no poor dentition, no ptosis, no scleral icterus, normal appearance ENT: hard of hearing, no hearing grossly normal, no NA/AT, normal oropharynx, no other, no pharyngeal erythema, no thrush, no tonsillar exudates, no tonsillar swelling Ears: bilateral: normal - Neck Neck: no lymphadenopathy, normal ROM, no other, no rigidity, no stridor, no thyromegaly Carotids: bilateral: upstroke normal Thyroid: bilateral: normal size - Respiratory Respiratory: bilateral: diminished, dullness, rales, rhonchi, wheezing - Cardiovascular Rhythm: regular Heart sounds: normal: S1, S2 Abnormal Heart Sounds: systolic murmur, S3 Gallop - Gastrointestinal General gastrointestinal: no absent bowel sounds, decreased bowel sounds, no distended, no hepatomegaly, no hyperactive bowel sounds, normal bowel sounds, no organomegaly, no rigid, no scaphoid, soft, no splenomegaly, no tenderness, no umbilical hernia, no ventral hernia - Integumentary Integumentary: no calor, no cellulitis, no cyanotic, no decreased turgor, no flushed, no jaundiced, normal, no normal turgor, pale, rash, no ulcer - Neurologic Neurologic: CNII-XII intact - Musculoskeletal Musculoskeletal: no gait normal, generalized weakness, no strength equal bilaterally, no right sided weakness, no left sided weakness - Psychiatric Psychiatric: A&O x's 3, no appropriate affect, no intact judgment & insight - Labs CBC & Chem 7: 09/18/16 04:18 09/18/16 04:18 Labs: Abnormal Lab Results - Last 24 Hours (Table) 09/17/16 09/17/16 09/17/16 Range/Units 14:28 17:06 20:07 WBC (3.8-10.6) k/uL RBC (4.30-5.90) m/uL Hgb (13.0-17.5) gm/dL Hct (39.0-53.0) % Neutrophils # (1.3-7.7) k/uL Chloride (98-107) mmol/L Carbon Dioxide (22-30) mmol/L BUN (9-20) mg/dL Creatinine (0.66-1.25) mg/dL Glucose (74-99) mg/dL POC Glucose (mg/dL) 138 H 126 H 184 H (75-99) mg/dL Calcium (8.4-10.2) mg/dL AST (17-59) U/L ALT (21-72) U/L Total Protein (6.3-8.2) g/dL Albumin (3.5-5.0) g/dL 09/18/16 09/18/16 09/18/16 Range/Units 02:19 04:18 04:18 WBC 11.4 H (3.8-10.6) k/uL RBC 3.05 L (4.30-5.90) m/uL Hgb 8.8 L (13.0-17.5) gm/dL Hct 28.1 L (39.0-53.0) % Neutrophils # 9.5 H (1.3-7.7) k/uL Chloride 112 H (98-107) mmol/L Carbon Dioxide 20 L (22-30) mmol/L BUN 39 H (9-20) mg/dL Creatinine 1.76 H (0.66-1.25) mg/dL Glucose 111 H (74-99) mg/dL POC Glucose (mg/dL) 134 H (75-99) mg/dL Calcium 8.3 L (8.4-10.2) mg/dL AST 100 H (17-59) U/L ALT 97 H (21-72) U/L Total Protein 5.4 L (6.3-8.2) g/dL Albumin 3.2 L (3.5-5.0) g/dL 06/23/17 06/23/17 06/23/17 Range/Units 04:18 08:35 12:23 WBC (3.8-10.6) k/uL RBC (4.30-5.90) m/uL Hgb (13.0-17.5) gm/dL Hct (39.0-53.0) % Neutrophils # (1.3-7.7) k/uL Chloride (98-107) mmol/L Carbon Dioxide (22-30) mmol/L BUN (9-20) mg/dL Creatinine (0.66-1.25) mg/dL Glucose (74-99) mg/dL POC Glucose (mg/dL) 125 H 123 H 236 H (75-99) mg/dL Calcium (8.4-10.2) mg/dL AST (17-59) U/L ALT (21-72) U/L Total Protein (6.3-8.2) g/dL Albumin (3.5-5.0) g/dL Assessment and Plan Plan: Plan: 1 CABG secondary to acute coronary syndrome with mildly elevated troponin slight change in his EKG: patient underwent cardiac cath, required emergent CABG 2 non-STEMI with left main disease: Patient underwent emergent CABG with balloon pump, balloon pump removed, continues to be followed by cardiology. 3 acute respiratory failure status post CABG surgery: Patient remains stable on BiPAP Followed by pulmonology. 4 acute pulmonary edema: Patient to be continued on furosemide, repeat chest x- ray 5 acute kidney injury secondary to hemodynamic instability and acute MO status post CABG: Continue to watch BUN and creatinine closely 6 Chronic kidney disease stage III: Patient followed by nephrology. We'll continue to monitor BUN and creatinine. 7 type 2 diabetes: Patient is on insulin drip, plan to wean off insulin drip and change to long and short acting insulin. 8 COPD: Continue patient on O2, DuoNeb and Pulmicort, pulmonary is consulted 9 hyperlipidemia: Remain on simvastatin 40 mg a day and TriCor 54 mg daily. 10 BPH: Continue to watch for any urinary retention. 11 chronic tobacco use and dependency: We will add nicotine patch 21 milligrams daily. 12 history of CVA: Still with slight residual. 13 hypertension: continue metoprolol GI prophylaxis: Continue patient on pantoprazole 40 mg daily. DVT prophylaxis: Patient be on heparin 5000 units continues twice a day. CODE STATUS: Full code. The above impression and plan of care have been discussed and directed by signing physician. Cathie Sprague nurse practitioner acting as scribe for signing physician.
--- NOTE | 2016-09-18 13:40 | P.PN ---
Subjective Principal diagnosis: Non-STEMI, triple vessel coronary artery disease with left main disease requiring preoperative placement of intra-aortic balloon pump, flash pulmonary edema, moderate to severe left ventricular dysfunction. History of hypertension , hyperlipidemia, COPD, CVA, left carotid occlusion, type 2 diabetes, SVT, chronic kidney disease stage III, and current tobacco dependence. Calcified ascending aorta. POD #3 emergent quadruple coronary artery bypass grafting using the left internal mammary artery to the intra-myocardial left anterior descending artery , reverse saphenous vein graft connected to the aorta using the PAS-Port device and connected distally to the right coronary artery after local endarterectomy, reverse saphenous vein graft connected to the aorta using the PAS-Port device and anastomosed sequentially to the second obtuse marginal artery in a side-to- side fashion then the third obtuse marginal artery in an end to side fashion. Endoscopic harvesting of the left greater saphenous vein. Intraoperative transesophageal echocardiogram and epi-aortic scanning. Intraoperative graft flow measurements using the Medistim system. Acute postoperative hypoxic respiratory failure requiring mechanical ventilation , an expected outcome of surgical procedure. Currently sitting up in recliner in no acute distress. No BiPAP required last night. Weaned off levo and Primacor yesterday. Objective - Vital Signs Vital signs: Vital Signs Temp 98.9 F 09/18/16 04:00 Pulse 89 09/18/16 07:27 Resp 18 09/18/16 07:00 BP 95/52 09/16/16 16:00 Pulse Ox 100 09/18/16 07:15 Intake & Output 09/17/16 09/18/16 09/18/16 18:59 06:59 18:59 Intake Total 788.150 8234.028 46 Output Total 1545 1300 115 Balance -735.547 85.028 -69 Weight 90.2 kg 91.7 kg Intake: IV 129 72 6 CO/CI 10 Lactated Ringers 1,000 ml 50 @ 50 mls/hr IV .Q20H [facility] Rx#:[id number] Pressure Bag 69 72 6 Intake, IV Titration 440.453 513.028 40 Amount Dexmedetomidine in 0.9 % 40.8 NaCl 400 mcg In Empty Bag 1 bag @ Titrate IV .Q0M [facility] Rx#:[id number] Insulin Regular 100 unit 9.653 33.028 In Sodium Chloride 0.9% 100 ml @ Per Protocol IV .Q0M [facility] Rx#:[id number] Sodium Chloride 0.45% 1, 280 40 000 ml @ 60 mls/hr IV . [id number] [facility] Rx#:[id number] Sodium Chloride 0.9% 1, 110 440 40 000 ml @ 50 mls/hr IV . Q20H [facility] Rx#:[id number] Oral 240 800 Output: Chest Tube Drainage 340 460 30 Bilateral Mediastinal 150 140 10 Left Pleural 190 320 20 Drainage 20 80 Left Whiting 20 80 Urine 1185 760 85 Other: Voiding Method Indwelling Catheter Indwelling Catheter # Voids 1 ABP, PAP, CO, CI - Last Documented Arterial Blood Pressure 121/68 Pulmonary Artery Pressure 38/22 Cardiac Output 5.6 Cardiac Index 2.9 - Constitutional General appearance: Present: cooperative, no acute distress - Respiratory Details: Lungs sounds diminished and coarse bilaterally. Respirations even, nonlabored. Currently on 15 L high flow oxygen with saturations 98%. Able to achieve 750 mL on his incentive spirometer. Mediastinal chest tube to -20 cm wall suction, 90 mL output overnight, 350 mL in the last 24 hours. Left pleural chest tube to -20 cm wall suction, 220 mL output overnight, 500 mL in the last 24 hours. No air leaks present. - Cardiovascular Details: S1, S2 present. Regular rate and rhythm, normal sinus rhythm on telemetry. Sternum stable. Heart hugger in place with patient demonstrating appropriate use. Teds/SCDs present. Ventricular epicardial pacemaker wires present but grounded. Left brachial reynaldo/right IJ Cordis present. Slight nonpitting edema to bilateral hands. - Gastrointestinal Gastrointestinal Comment(s): Abdomen soft, nontender, nondistended. Hypoactive bowel sounds 4 quadrants. Positive flatus. Tolerating diet. - Genitourinary Genitourinary Comment(s): Chan present draining clear, yellow urine. Output overnight 40-80 mL per hour. - Integumentary Integumentary Comment(s): anterior chest incision well approximated and covered with dry intact dressing. Left lower extremity EVH site well approximated, MARTIN drain present with minimal output. - Musculoskeletal Musculoskeletal: Present: strength equal bilaterally - Psychiatric Psychiatric: Present: A&O x's 3, appropriate affect, intact judgment & insight - Allied health notes Allied health notes reviewed: nursing - Labs CBC & Chem 7: 09/18/16 04:18 09/18/16 04:18 Labs: Abnormal Lab Results - Last 24 Hours (Table) 09/17/16 09/17/16 09/17/16 Range/Units 08:34 11:03 12:41 WBC (3.8-10.6) k/uL RBC (4.30-5.90) m/uL Hgb (13.0-17.5) gm/dL Hct (39.0-53.0) % Neutrophils # (1.3-7.7) k/uL Chloride (98-107) mmol/L Carbon Dioxide (22-30) mmol/L BUN (9-20) mg/dL Creatinine (0.66-1.25) mg/dL Glucose (74-99) mg/dL POC Glucose (mg/dL) 108 H 120 H 135 H (75-99) mg/dL Calcium (8.4-10.2) mg/dL AST (17-59) U/L ALT (21-72) U/L Total Protein (6.3-8.2) g/dL Albumin (3.5-5.0) g/dL 09/17/16 09/17/16 09/17/16 Range/Units 14:28 17:06 20:07 WBC (3.8-10.6) k/uL RBC (4.30-5.90) m/uL Hgb (13.0-17.5) gm/dL Hct (39.0-53.0) % Neutrophils # (1.3-7.7) k/uL Chloride (98-107) mmol/L Carbon Dioxide (22-30) mmol/L BUN (9-20) mg/dL Creatinine (0.66-1.25) mg/dL Glucose (74-99) mg/dL POC Glucose (mg/dL) 138 H 126 H 184 H (75-99) mg/dL Calcium (8.4-10.2) mg/dL AST (17-59) U/L ALT (21-72) U/L Total Protein (6.3-8.2) g/dL Albumin (3.5-5.0) g/dL 09/18/16 09/18/16 09/18/16 Range/Units 02:19 04:18 04:18 WBC 11.4 H (3.8-10.6) k/uL RBC 3.05 L (4.30-5.90) m/uL Hgb 8.8 L (13.0-17.5) gm/dL Hct 28.1 L (39.0-53.0) % Neutrophils # 9.5 H (1.3-7.7) k/uL Chloride 112 H (98-107) mmol/L Carbon Dioxide 20 L (22-30) mmol/L BUN 39 H (9-20) mg/dL Creatinine 1.76 H (0.66-1.25) mg/dL Glucose 111 H (74-99) mg/dL POC Glucose (mg/dL) 134 H (75-99) mg/dL Calcium 8.3 L (8.4-10.2) mg/dL AST 100 H (17-59) U/L ALT 97 H (21-72) U/L Total Protein 5.4 L (6.3-8.2) g/dL Albumin 3.2 L (3.5-5.0) g/dL 09/18/16 Range/Units 04:18 WBC (3.8-10.6) k/uL RBC (4.30-5.90) m/uL Hgb (13.0-17.5) gm/dL Hct (39.0-53.0) % Neutrophils # (1.3-7.7) k/uL Chloride (98-107) mmol/L Carbon Dioxide (22-30) mmol/L BUN (9-20) mg/dL Creatinine (0.66-1.25) mg/dL Glucose (74-99) mg/dL POC Glucose (mg/dL) 125 H (75-99) mg/dL Calcium (8.4-10.2) mg/dL AST (17-59) U/L ALT (21-72) U/L Total Protein (6.3-8.2) g/dL Albumin (3.5-5.0) g/dL - Imaging and Cardiology Chest x-ray: image reviewed Assessment and Plan (1) Non-STEMI (non-ST elevated myocardial infarction) Status: Acute (2) Left main coronary artery disease Status: Acute (3) History of CVA (cerebrovascular accident) Status: Acute (4) Left carotid artery occlusion Status: Acute (5) COPD (chronic obstructive pulmonary disease) Status: Acute (6) Uncontrolled type 2 diabetes mellitus Status: Acute (7) Hyperlipidemia Status: Acute (8) Chronic kidney disease, stage III (moderate) Status: Acute (9) History of paroxysmal supraventricular tachycardia Status: Acute (10) Tobacco dependence Status: Acute (11) Obesity (BMI 30.0-34.9) Status: Acute (12) Hypertension Status: Acute Plan: 1. Continue aspirin, plavix, statin, heparin subcu. Lopressor increased to 25 mg by mouth twice a day. 2. Wean oxygen as tolerated. Encourage incentive spirometer. Pulmicort added by pulmonology. 3. Will discontinue Chan , mediastinal chest tube. 4. Increase activity, ambulate in hallway. Dr. Ashby on consult for rehabilitation recommendations. 5. Avoid nephrotoxins. Neurosurgery Spine Physician on consult. Hold MATTY inhibitor for now per nephrology. 6. Diabetic management per primary care service. 7. Monitor daily labs, chest x-rays. 8. GI/DVT prophylaxis. 9. More recommendations as patient progresses. Mediastinal chest tubes discontinued without incident. Pt theron well, CXR in AM Time with Patient: Greater than 30
--- NOTE | 2016-09-18 13:43 | PN ---
Mr. Cerna is a 60-year-old male who presented with an acute coronary syndrome, myocardial infarction and pulmonary edema, was found to have critical left main disease, underwent coronary bypass grafting. He is extubated, sitting up in the chair, feeling well in sinus mechanism. Denying any chest pain. No dizziness. No palpitation. He denies any nausea. He continues to be on aspirin once a day, Plavix 75 mg daily, Lopressor 25 mg twice a day, Lipitor 40 mg daily. He received one dose of diuretics yesterday. PHYSICAL EXAMINATION: Blood pressure running in the 140s with the heart rate in the 90s. LUNGS: Crackles at the bases. HEART: Regular rate and rhythm. S1, S2, no S3, no rub appreciated. ABDOMEN: Soft, nontender. EXTREMITIES: No edema noted. Lab data revealed a BUN and creatinine of 39 and 1.76, which has improved compared with yesterday. The patient is close to his baseline. His potassium is 4.6. Hemoglobin of 8.8. IMPRESSION: 1. Status post coronary artery bypass grafting with severe ischemic cardiomyopathy, probably stunned myocardium. 2. Prior history of smoking. 3. Hypertension. 4. Hyperlipidemia. 5. Diabetes mellitus. 6. Peripheral vascular disease with prior cerebrovascular accident. 7. Renal failure. RECOMMENDATION: I will increase the dose of his beta chandu. I will add hydralazine 25 mg twice a day because of the cardiomyopathy. We will await the input of the nephrology service to see if we can reinitiate an MATTY inhibitor as he was on prior to the admission. Will follow his renal function closely, increase his level of activity and depending on his progress, further recommendation will be made.
--- NOTE | 2016-09-18 15:48 | PN ---
DATE OF SERVICE: 09/18/2016 The patient is a 60-year-old male who is seen lying in bed in the ICU with nursing at the bedside. The patient is awake, alert, oriented, afebrile, hemodynamically stable, in no acute distress. VITAL SIGNS: Temp is 98.4, heart rate is 82, respiratory 14, blood pressure is 135/75, oxygen saturation is 100% on 15 liters high flow. HEENT: Head is normocephalic, atraumatic. NECK: Supple. Trachea is midline. LUNGS: Coarse breath sounds, decreased bases. HEART: S1 and S2 are heard. Not tachycardic. ABDOMEN: Soft, obese. Bowel sounds are heard. EXTREMITIES: With 1+ edema to upper and lower extremities. NEUROLOGIC: The patient is awake, alert, oriented. LABS: White count 11.4, hemoglobin is 8.8, hematocrit 28.1 with 175,000 platelets. Sodium is 142, potassium is 4.6, chloride 112, CO2 is 20, anion gap is 10, BUN is 39, creatinine is 1.76. Glucose is 111, calcium is 8.3. Total bilirubin 0.5, AST is 100, ALT is 97, alk phos is 42, total protein 5.4. Albumin is 3.2. IMAGING: Chest x-ray done this a.m. shows persistent cardiomegaly with moderate central vascular congestion and bibasilar infiltrates and/or atelectasis and likely small bilateral pleural effusions all redemonstrated IMPRESSION: 1. Coronary artery disease, status post coronary artery bypass graft. 2. Congestive heart failure with cardiomyopathy. An ejection fraction of 30%. 3. Pulmonary edema. 4. History of cerebrovascular accident. 5. Chronic obstructive pulmonary disease with previous nicotine abuse. 6. Diabetes mellitus type 2. PLAN: Continue current medications, which have been reviewed. Continue supplemental oxygen to maintain saturations greater than or equal to 90%. Use BiPAP as needed. Continue incentive spirometry and pulmonary hygiene. Continue to optimize fluid status maintain a negative fluid balance. Increase activity. Patient should be up in a chair t.i.d. Will continue to follow the patient closely with you, making further changes as necessary.
[2016-09-18 17:18] LABS: Glucose,Whole Blood 135 mg/dL (75-99)
[2016-09-18] MEDS: SENNOSIDES-DOCUSATE SODIUM 1 EACH TAB PO SCH (21:34)
[2016-09-18 21:35] LABS: Glucose,Whole Blood 214 mg/dL (75-99)
[2016-09-18] MEDS: INSULIN DETEMIR 100 UNIT/ML 10 ML VIAL SQ SCH (21:43)
[2016-09-19] MEDS: MORPHINE SULFATE 2 MG/ML SYRINGE IVP PRN (00:44)
[2016-09-19] MEDS: HEPARIN SODIUM,PORCINE 5,000 UNIT/ML 1 ML VIAL SQ SCH ×3 (00:44→16:53)
[2016-09-19 02:40] LABS: Glucose,Whole Blood 79 mg/dL (75-99)
[2016-09-19] MEDS: HYDROcodone/APAP 5-325MG 1 EACH TAB PO PRN ×4 (04:26→20:57)
[2016-09-19 05:01] LABS: Basophils % (A) 0 %; CH 28.8; CHCM 31.7; Eosinophils # (A) 0.2 k/uL (0-0.7); Eosinophils % (A) 2 %; HCT 27.3 % (39.0-53.0); HDW 2.88; HGB 8.6 gm/dL (13.0-17.5); Luc # (Auto) 0.16; Luc % (Auto) 2; Lymphocytes # (A) 1.3 k/uL (1.0-4.8); Lymphocytes % (A) 13 %; MCH 28.7 pg (25.0-35.0); MCHC 31.4 g/dL (31.0-37.0); MCV 91.5 fL (80.0-100.0); Mean Platelet Volume 7.5; Monocytes # (A) 0.3 k/uL (0-1.0); Monocytes % (A) 4 %; Neutrophils # (A) 7.5 k/uL (1.3-7.7); Neutrophils % (A) 79 %; RBC 2.98 m/uL (4.30-5.90); RDW 14.2 % (11.5-15.5); WBC 9.5 k/uL (3.8-10.6); WBC (Perox) 9.83
[2016-09-19 05:18] LABS: ALT 67 U/L (21-72); AST 43 U/L (17-59); Alkaline Phosphatase 46 U/L (38-126); Anion Gap 8 mmol/L; Blood Urea Nitrogen 42 mg/dL (9-20); Calcium 8.4 mg/dL (8.4-10.2); Carbon Dioxide 21 mmol/L (22-30); Chloride 109 mmol/L (98-107); Glucose 60 mg/dL (74-99); Non-African American GFR(MDRD) 51 (>60 ml/min/1.73 sqM); Potassium 3.9 mmol/L (3.5-5.1); Sodium 138 mmol/L (137-145); Total Bilirubin 0.3 mg/dL (0.2-1.3); Total Protein 5.1 g/dL (6.3-8.2)
[2016-09-19 06:58] LABS: Glucose,Whole Blood 74 mg/dL (75-99)
--- NOTE | 2016-09-19 07:17 | XR ---
EXAMINATION TYPE: XR chest 1V portable DATE OF EXAM: 09/19/2016 HISTORY: post op cardiac surgery. REFERENCE: Previous study dated 09/18/2016. FINDINGS: There has been a midline sternotomy. The heart is enlarged. The vascular pedicle is widened . There is bibasilar airspace disease. There are bilateral effusions. There is vascular congestion an d mild edema. The patient's right internal jugular sheath is been removed. A left pleural drain remains in place. IMPRESSION: EVOLVING POSTOPERATIVE CHANGE. THERE DOES APPEAR TO BE MILD HEART FAILURE THIS TIME.
[2016-09-19 07:32] LABS: Glucose,Whole Blood 109 mg/dL (75-99)
--- NOTE | 2016-09-19 07:43 | P.PN ---
Subjective Principal diagnosis: Non-STEMI, triple vessel coronary artery disease with left main disease requiring preoperative placement of intra-aortic balloon pump, flash pulmonary edema, moderate to severe left ventricular dysfunction. History of hypertension , hyperlipidemia, COPD, CVA, left carotid occlusion, type 2 diabetes, SVT, chronic kidney disease stage III, and current tobacco dependence. Calcified ascending aorta. POD #4 emergent quadruple coronary artery bypass grafting using the left internal mammary artery to the intra-myocardial left anterior descending artery , reverse saphenous vein graft connected to the aorta using the PAS-Port device and connected distally to the right coronary artery after local endarterectomy, reverse saphenous vein graft connected to the aorta using the PAS-Port device and anastomosed sequentially to the second obtuse marginal artery in a side-to- side fashion then the third obtuse marginal artery in an end to side fashion. Endoscopic harvesting of the left greater saphenous vein. Intraoperative transesophageal echocardiogram and epi-aortic scanning. Intraoperative graft flow measurements using the [employer] system. Acute postoperative hypoxic respiratory failure requiring mechanical ventilation , an expected outcome of surgical procedure. Currently sitting up in recliner in no acute distress. Oxygen able to be weaned down on last night to 4 L nasal cannula. Mediastinal chest tubes removed yesterday. Chan removed yesterday with adequate urine output. Patient 's only complaint is pain in the left lower extremity EVH site. He has ambulated out of the hallway. Objective - Vital Signs Vital signs: Vital Signs Temp 97.7 F 09/19/16 04:00 Pulse 80 09/19/16 07:00 Resp 16 09/19/16 07:00 BP 125/61 09/18/16 16:30 Pulse Ox 95 09/19/16 07:00 Intake & Output 09/18/16 09/19/16 09/19/16 18:59 06:59 18:59 Intake Total 212 836 128 Output Total 645 1505 280 Balance -433 -669 -152 Weight 91.7 kg 89.9 kg Intake: IV 172 36 3 Lactated Ringers 1,000 ml 100 @ 50 mls/hr IV .Q20H TERESA Rx#:[id number] Pressure Bag 72 36 3 Intake, IV Titration 40 Amount Sodium Chloride 0.9% 1, 40 000 ml @ 50 mls/hr IV . Q20H TERESA Rx#:[id number] Oral 800 125 Output: Chest Tube Drainage 190 350 30 Bilateral Mediastinal 10 Left Pleural 180 350 30 Drainage 50 70 Left Whiting 50 70 Urine 405 1085 250 Other: Voiding Method Urinal Urinal # Voids 1 ABP, PAP, CO, CI - Last Documented Arterial Blood Pressure 135/64 Pulmonary Artery Pressure 38/22 Cardiac Output 5.6 Cardiac Index 2.9 - Constitutional General appearance: Present: cooperative, no acute distress - Respiratory Details: Lungs sounds diminished and coarse bilaterally. Respirations even, nonlabored. Currently on 4 L nasal cannula with oxygen saturation 95%. Able to achieve 1000 mL on his incentive spirometry. Left pleural chest tube to -20 cm wall suction, 120 mL serous output in the last 8 hours, 400 mL output in the last 24 hours. No air leak present. - Cardiovascular Details: S1, S2 present. Regular rate and rhythm, normal sinus rhythm on telemetry. Sternum stable. Heart hugger in place with patient demonstrating appropriate use. Teds/SCDs present. Ventricular epicardial pacemaker wires present, grounded. Left brachial a line present. - Gastrointestinal Gastrointestinal Comment(s): Abdomen soft, nontender, nondistended. Active bowel sounds 4 quadrants. Positive flatus. No bowel movement yet. - Genitourinary Genitourinary Comment(s): Voiding clear, yellow urine per urinal. Approximate 260-275 ml every 4 hours. - Integumentary Integumentary Comment(s): Anterior chest incision well approximated covered with dry intact dressing. Left lower extremity EVH site well approximated with MARTIN drain, minimal drainage. - Musculoskeletal Musculoskeletal: Present: gait normal, strength equal bilaterally - Psychiatric Psychiatric: Present: A&O x's 3, appropriate affect, intact judgment & insight - Allied health notes Allied health notes reviewed: nursing - Labs CBC & Chem 7: 09/19/16 04:50 09/19/16 04:50 Labs: Abnormal Lab Results - Last 24 Hours (Table) 09/18/16 09/18/16 09/18/16 Range/Units 08:35 12:23 17:16 RBC (4.30-5.90) m/uL Hgb (13.0-17.5) gm/dL Hct (39.0-53.0) % Chloride (98-107) mmol/L Carbon Dioxide (22-30) mmol/L BUN (9-20) mg/dL Creatinine (0.66-1.25) mg/dL Glucose (74-99) mg/dL POC Glucose (mg/dL) 123 H 236 H 135 H (75-99) mg/dL Total Protein (6.3-8.2) g/dL Albumin (3.5-5.0) g/dL 09/18/16 09/19/16 09/19/16 Range/Units 21:33 04:50 04:50 RBC 2.98 L (4.30-5.90) m/uL Hgb 8.6 L (13.0-17.5) gm/dL Hct 27.3 L (39.0-53.0) % Chloride 109 H (98-107) mmol/L Carbon Dioxide 21 L (22-30) mmol/L BUN 42 H (9-20) mg/dL Creatinine 1.40 H (0.66-1.25) mg/dL Glucose 60 L (74-99) mg/dL POC Glucose (mg/dL) 214 H (75-99) mg/dL Total Protein 5.1 L (6.3-8.2) g/dL Albumin 3.0 L (3.5-5.0) g/dL 09/19/16 09/19/16 Range/Units 06:55 07:30 RBC (4.30-5.90) m/uL Hgb (13.0-17.5) gm/dL Hct (39.0-53.0) % Chloride (98-107) mmol/L Carbon Dioxide (22-30) mmol/L BUN (9-20) mg/dL Creatinine (0.66-1.25) mg/dL Glucose (74-99) mg/dL POC Glucose (mg/dL) 74 L 109 H (75-99) mg/dL Total Protein (6.3-8.2) g/dL Albumin (3.5-5.0) g/dL Microbiology - Last 24 Hours (Table) 09/15/16 13:00 Urine Culture - Final Urine,Catheterized Staphylococcus epidermidis - Imaging and Cardiology Chest x-ray: report reviewed, image reviewed Assessment and Plan (1) Non-STEMI (non-ST elevated myocardial infarction) Status: Acute (2) Left main coronary artery disease Status: Acute (3) History of CVA (cerebrovascular accident) Status: Acute (4) Left carotid artery occlusion Status: Acute (5) COPD (chronic obstructive pulmonary disease) Status: Acute (6) Uncontrolled type 2 diabetes mellitus Status: Acute (7) Hyperlipidemia Status: Acute (8) Chronic kidney disease, stage III (moderate) Status: Acute (9) History of paroxysmal supraventricular tachycardia Status: Acute (10) Tobacco dependence Status: Acute (11) Obesity (BMI 30.0-34.9) Status: Acute (12) Hypertension Status: Acute Plan: 1. Continue aspirin, plavix, statin, heparin subcu. Lopressor increased to 25 mg by mouth 3 times a day by cardiology. Hydralazine added per cardiology. 2. Wean oxygen as tolerated. Encourage incentive spirometer. Pulmicort added by pulmonology. 3. Likely will discontinue left pleural chest tube, MARTIN drain today. 4. Increase activity, ambulate in hallway. Dr. Ashby on consult for rehabilitation recommendations. 5. Avoid nephrotoxins. Manager Fiber on consult. Hold MATTY inhibitor for now per nephrology. 6. Diabetic management per primary care service. 7. Monitor daily labs, chest x-rays. 8. GI/DVT prophylaxis. 9. Likely will transfer to 6 E. selective care today. Time with Patient: Greater than 30
[2016-09-19] MEDS: INSULIN DETEMIR 100 UNIT/ML 10 ML VIAL SQ SCH ×2 (07:46→21:03)
[2016-09-19] MEDS: PANTOPRAZOLE 40 MG TABLET PO SCH (07:47)
[2016-09-19] MEDS: INSULIN LISPRO (humaLOG) 300 UNIT/3 ML VIAL SQ SCH ×4 (07:47→21:04)
[2016-09-19] MEDS: ASPIRIN 325 MG TAB PO SCH (07:48)
[2016-09-19] MEDS: CLOPIDOGREL 75 MG TAB PO SCH (07:49)
[2016-09-19] MEDS: ATORVASTATIN 40 MG TAB PO SCH (07:49)
[2016-09-19] MEDS: METOPROLOL TARTRATE 25 MG TAB PO SCH ×3 (07:49→20:57)
[2016-09-19] MEDS: hydrALAZINE HCL 25 MG TAB PO SCH ×2 (07:50→20:56)
[2016-09-19] MEDS ORDERED: POTASSIUM CHLORIDE ER 20 MEQ TAB.ER PO SCH (08:00)
[2016-09-19] MEDS: IPRATROPIUM-ALBUTEROL 3 ML NEB INHALATION PRN (08:05)
[2016-09-19] MEDS: BUDESONIDE 0.5 MG/2 ML NEBU INHALATION SCH ×2 (08:05→19:05)
--- NOTE | 2016-09-19 10:12 | P.PN ---
Subjective Patient is seen in follow-up for acute kidney injury on chronic kidney disease. Patient has chronic kidney disease stage III secondary to diabetic kidney disease with baseline creatinine near 1.5. Creatinine peaked at 2 and is down to 1.4 today. Patient presented with dyspnea and flash pulmonary edema. Patient underwent a cardiac catheterization on September 16 which revealed triple- vessel disease and subsequently underwent emergent CABG on September 16. He was extubated on September 16. Balloon pump has been removed and Primacor drip has been discontinued as well. He is nonoliguric. Oral intake has improved. Hemodynamically stable. Vital signs are stable. General: The patient appeared well nourished and normally developed. Intubated. HEENT: Head exam is unremarkable. Neck is without jugular venous distension. LUNGS: Scattered rhonchi. Breath sounds decreased. HEART: Rate and Rhythm are regular. First and second heart sounds normal. No murmurs, rubs or gallops. ABDOMEN: Abdominal exam reveals normal bowel sounds. Non-tender and non- distended. No evidence of peritonitis. EXTREMITITES: No clubbing, cyanosis, or edema. Objective - Vital Signs Vital signs: Vital Signs Temp 97.7 F 09/19/16 04:00 Pulse 80 09/19/16 08:13 Resp 20 09/19/16 08:00 BP 125/61 09/18/16 16:30 Pulse Ox 95 09/19/16 08:00 Intake & Output 09/18/16 09/19/16 09/19/16 18:59 06:59 18:59 Intake Total 212 836 134 Output Total 645 1505 300 Balance -433 -669 -166 Weight 91.7 kg 89.9 kg Intake: IV 172 36 9 Lactated Ringers 1,000 ml 100 @ 50 mls/hr IV .Q20H [facility] Rx#:[id number] Pressure Bag 72 36 9 Intake, IV Titration 40 Amount Sodium Chloride 0.9% 1, 40 000 ml @ 50 mls/hr IV . Q20H [facility] Rx#:[id number] Oral 800 125 Output: Chest Tube Drainage 190 350 50 Bilateral Mediastinal 10 Left Pleural 180 350 50 Drainage 50 70 Left Whiting 50 70 Urine 405 1085 250 Other: Voiding Method Urinal Urinal Urinal # Voids 1 ABP, PAP, CO, CI - Last Documented Arterial Blood Pressure 127/60 Pulmonary Artery Pressure 38/22 Cardiac Output 5.6 Cardiac Index 2.9 - Labs CBC & Chem 7: 09/19/16 04:50 09/19/16 04:50 Labs: Abnormal Lab Results - Last 24 Hours (Table) 09/18/16 09/18/16 09/18/16 Range/Units 12:23 17:16 21:33 RBC (4.30-5.90) m/uL Hgb (13.0-17.5) gm/dL Hct (39.0-53.0) % Chloride (98-107) mmol/L Carbon Dioxide (22-30) mmol/L BUN (9-20) mg/dL Creatinine (0.66-1.25) mg/dL Glucose (74-99) mg/dL POC Glucose (mg/dL) 236 H 135 H 214 H (75-99) mg/dL Total Protein (6.3-8.2) g/dL Albumin (3.5-5.0) g/dL 09/19/16 09/19/16 09/19/16 Range/Units 04:50 04:50 06:55 RBC 2.98 L (4.30-5.90) m/uL Hgb 8.6 L (13.0-17.5) gm/dL Hct 27.3 L (39.0-53.0) % Chloride 109 H (98-107) mmol/L Carbon Dioxide 21 L (22-30) mmol/L BUN 42 H (9-20) mg/dL Creatinine 1.40 H (0.66-1.25) mg/dL Glucose 60 L (74-99) mg/dL POC Glucose (mg/dL) 74 L (75-99) mg/dL Total Protein 5.1 L (6.3-8.2) g/dL Albumin 3.0 L (3.5-5.0) g/dL 09/19/16 Range/Units 07:30 RBC (4.30-5.90) m/uL Hgb (13.0-17.5) gm/dL Hct (39.0-53.0) % Chloride (98-107) mmol/L Carbon Dioxide (22-30) mmol/L BUN (9-20) mg/dL Creatinine (0.66-1.25) mg/dL Glucose (74-99) mg/dL POC Glucose (mg/dL) 109 H (75-99) mg/dL Total Protein (6.3-8.2) g/dL Albumin (3.5-5.0) g/dL Microbiology - Last 24 Hours (Table) 09/15/16 13:00 Urine Culture - Final Urine,Catheterized Staphylococcus epidermidis Assessment and Plan Plan: Assessment: #1. Nonoliguric acute kidney injury secondary to an secondary to hemodynamic instability and acute NH. Patient also received contrast dye from cardiac catheterization in September 15. Creatinine peaked at 2 and is down to 1.4 today. #2. Chronic kidney disease stage III secondary to diabetic kidney disease with baseline creatinine near 1.5. #3. Metabolic acidosis secondary to acute kidney injury. Improving. #4. Volume overload. Improved. #5. Coronary artery disease status post cardiac catheterization and emergent CABG on September 15. #6. Hyperkalemia related to acute kidney injury and use of lactated Ringer's. Resolved. #7. Hypernatremia secondary to lack of oral water intake. Resolved. #8. Postoperative anemia. Hemoglobin stable. Plan: Fluids have been discontinued. Encourage oral intake. Avoid nephrotoxic agents and hypotensive episodes. Hold lisinopril for now. Continue to monitor renal function and urine output. Repeat electrolytes in the morning.
[2016-09-19 12:03] LABS: Appearance,Urine Clear (Clear); Bilirubin,Urine Negative (Negative); Glucose,Urine (UA) 1+ (Negative); Ketones,Urine Negative (Negative); Leukocyte Esterase,Urine Negative (Negative); Nitrite,Urine Negative (Negative); Particle Count 771; Protein,Urine 1+ (Negative); RBC,Urine 1 /hpf (0-5); Specific Gravity,Urine 1.016 (1.001-1.035); Squamous Epithelial Cell,Urine <1 /hpf (0-4); UA Billing (MACRO vs. MICRO) MICRO; Urobilinogen,Urine <2.0 mg/dL (<2.0); WBC,Urine 1 /hpf (0-5)
[2016-09-19] MEDS: CHOLECALCIFEROL 1,000 UNIT TAB PO SCH (12:41)
[2016-09-19 13:00] LABS: Glucose,Whole Blood 67 mg/dL (75-99)
--- NOTE | 2016-09-19 13:00 | PN ---
DATE OF SERVICE: 09/19/2016 This patient is status post coronary artery bypass surgery. Patient is feeling well. He is resting comfortably in the recliner. He has been having some problem with gas, but denies any respiratory distress. Patient is afebrile. Blood pressure is 125/60 mmHg, heart rate is 80 per minute. First and second heart sounds are normal. Lung examination reveals bilateral scattered wheezes. Patient's creatinine is 1.4. FINAL IMPRESSION: Status post coronary artery bypass surgery. At present, there is no evidence of any significant congestive cardiac failure. Patient's creatinine has improved to 1.4. Patient did have a significantly impaired left ventricular systolic function. If the patient's creatinine remains stable for the next couple of days we can consider adding an MATTY inhibitor.
[2016-09-19 13:19] LABS: Glucose,Whole Blood 118 mg/dL (75-99)
--- NOTE | 2016-09-19 13:22 | PN ---
DATE OF SERVICE: 09/19/2016 He is starting to stand up and sit up. His IS is 750 to 1000. On physical examination, his blood pressure 141/77, respiratory rate of 15, pulse rate of 79, O2 sat on high-flow nasal cannula is 93%. HEENT: Unremarkable. Chest reveals decreased breath sounds at the bases. Cardiovascular system reveals an S1, S2. ABDOMEN: Soft. There is 1+ pedal edema. Sodium is 138, potassium 3.9, chloride 109, bicarb 29, BUN 42, creatinine 1.4. White count of 9.5, hemoglobin of 8.6. Chest x-ray shows sternotomy, bilateral pleural effusions and a left pleural drain. IMPRESSION: 1. Coronary artery disease, status post coronary artery bypass. 2. Accelerated hypertension. 3. Cardiomyopathy with congestive heart failure. 4. Previous history of cerebrovascular accident. 5. Diabetes mellitus type 2. Continue BiPAP as needed. Increase his activity. Encourage incentive spirometry. Optimize his fluid status. Nephrology is following as well and we shall defer to their expertise in managing his fluids. His prognosis at this time is fair.
--- NOTE | 2016-09-19 14:36 | P.PN ---
Subjective 61-year-old male one of my office patient of known for long time with past medical history of CVA, PAD, CAD, COPD, chronic smoking, diabetes, chronic neuropathy and stage III kidney disease who was the hospital last in September 2015 for CVA. Patient has been doing well his blood sugar has been slightly elevated. Patient went to sleep was feeling well he woke up around 2:00 after midnight gasping for air having significant shortness of breath with mild tightness and pressure with mild cold sweat than slight wheezes and cough. Patient ended up coming to the emergency department at [facility] where was seen and evaluated surprisingly his chest x-ray showed sign of pulmonary edema first EKGs shows slight T waves inversion second EKG had mild change as well and his troponin continued to be mildly elevated. Patient was diagnosed with acute pulmonary edema secondary to congestive heart failure and possible from acute currently syndrome. Patient risk factor of having coronary artery disease extremely high at the time. Patient will be seen cardiology and possible need for an intervention with heart catheter. His chronic kidney disease with the current creatinine is quite bit elevated will involve nephrology diuresis patient and add Nitrol hopefully patient be more stable at this point and I hope creatinine will improve enough to allow him to go for heart catheter when he is ready. 09/16: The patient had worsening dyspnea and flash pulmonary edema. He underwent a cardiac catheterization which revealed more than 90% diffuse left main stenosis with moderate stenosis of the right coronary artery with some collaterals through the septals to the left system. He underwent an emergent CABG and required placement of a intra aortic balloon pump, this was placed by Dr. Cowan in the mechanical laboratory technician. 2-D echo shows ejection fraction of 30% with no significant valvular abnormality. He is currently intubated and and is is on levophed and a primacor drip. He is also being followed by nephrology for his chronic kidney disease stage III. BUN 41, creatinine 1.78. Last chest x-ray showed vascular congestion and mild edema left basilar airspace disease, improving postoperative changes. The patient is also being followed by pulmonology. 09/17: The patient was extubated yesterday he did have some respiratory distress overnight and required placement of a BiPAP. Right femoral intra-aortic balloon pump was also removed yesterday he was weaned off levophed in Primacor drip was also turned off. Repeat chest x-ray showed postsurgical change worsening bibasilar airspace disease, small bilateral effusions, and worsening subcutaneous emphysema on the left. The patient continues to be followed by pulmonology. Kidney function slightly improved from yesterday BUN 34 creatinine 1.9. 09/18: The patient was evaluated today he was sitting up in the chair eating breakfast. The patient is off BiPAP and remains on nasal cannula. BUN/ creatinine remain elevated, but again have improved since yesterday nightly 39, creatinine 1.7. PT/OT was consulted. The patient will be encouraged to get out of bed and start to ambulate. chest x-ray shows persisting cardiomegaly with moderate central vascular congestion and bibasilar infiltrate or atelectasis and likely small bilateral pleural effusions. Left chest tube and two mediastinal drain catheters remain present. 09/19/2016: Patient is feeling a bit better today, he continues to have some pain in the on and off, he is having a burning sensation in the left lower x-ray , his pacer wire were removed, and the patient will be transferred to [facility] care. Objective - Vital Signs Vital signs: Vital Signs Temp 97.7 F 09/19/16 04:00 Pulse 79 09/19/16 10:00 Resp 15 09/19/16 10:00 BP 141/77 09/19/16 10:00 Pulse Ox 93 L 09/19/16 10:00 Intake & Output 09/18/16 09/19/16 09/19/16 18:59 06:59 18:59 Intake Total 212 836 134 Output Total 645 1505 300 Balance -433 -669 -166 Weight 91.7 kg 89.9 kg Intake: IV 172 36 9 Lactated Ringers 1,000 ml 100 @ 50 mls/hr IV .Q20H TERESA Rx#:[id number] Pressure Bag 72 36 9 Intake, IV Titration 40 Amount Sodium Chloride 0.9% 1, 40 000 ml @ 50 mls/hr IV . Q20H TERESA Rx#:[id number] Oral 800 125 Output: Chest Tube Drainage 190 350 50 Bilateral Mediastinal 10 Left Pleural 180 350 50 Drainage 50 70 Left Whiting 50 70 Urine 405 1085 250 Other: Voiding Method Urinal Urinal Urinal # Voids 1 ABP, PAP, CO, CI - Last Documented Arterial Blood Pressure 109/52 Pulmonary Artery Pressure 38/22 Cardiac Output 5.6 Cardiac Index 2.9 - Exam - Constitutional General appearance: no average body habitus, cooperative, disheveled, no mild distress, no morbidly obese, no acute distress, no obese, no severe distress, no thin - EENT Eyes: abnormal pupil, no anicteric sclerae, no disc margins sharp, no edentulous , no EOMI, no PERRLA, no fundus normal, no photophobia, no dentition normal, no poor dentition, no ptosis, no scleral icterus, normal appearance ENT: hard of hearing, no hearing grossly normal, no NA/AT, normal oropharynx, no other, no pharyngeal erythema, no thrush, no tonsillar exudates, no tonsillar swelling Ears: bilateral: normal - Neck Neck: no lymphadenopathy, normal ROM, no other, no rigidity, no stridor, no thyromegaly Carotids: bilateral: upstroke normal Thyroid: bilateral: normal size - Respiratory Respiratory: bilateral: diminished, dullness, rales, rhonchi, wheezing - Cardiovascular Rhythm: regular Heart sounds: normal: S1, S2 Abnormal Heart Sounds: systolic murmur, S3 Gallop - Gastrointestinal General gastrointestinal: no absent bowel sounds, decreased bowel sounds, no distended, no hepatomegaly, no hyperactive bowel sounds, normal bowel sounds, no organomegaly, no rigid, no scaphoid, soft, no splenomegaly, no tenderness, no umbilical hernia, no ventral hernia - Integumentary Integumentary: no calor, no cellulitis, no cyanotic, no decreased turgor, no flushed, no jaundiced, normal, no normal turgor, pale, rash, no ulcer - Neurologic Neurologic: CNII-XII intact - Musculoskeletal Musculoskeletal: no gait normal, generalized weakness, no strength equal bilaterally, no right sided weakness, no left sided weakness - Psychiatric Psychiatric: A&O x's 3, no appropriate affect, no intact judgment & insight - Labs CBC & Chem 7: 09/19/16 04:50 09/19/16 04:50 Labs: Abnormal Lab Results - Last 24 Hours (Table) 09/18/16 09/18/16 09/18/16 Range/Units 12:23 17:16 21:33 RBC (4.30-5.90) m/uL Hgb (13.0-17.5) gm/dL Hct (39.0-53.0) % Chloride (98-107) mmol/L Carbon Dioxide (22-30) mmol/L BUN (9-20) mg/dL Creatinine (0.66-1.25) mg/dL Glucose (74-99) mg/dL POC Glucose (mg/dL) 236 H 135 H 214 H (75-99) mg/dL Total Protein (6.3-8.2) g/dL Albumin (3.5-5.0) g/dL 09/19/16 09/19/16 09/19/16 Range/Units 04:50 04:50 06:55 RBC 2.98 L (4.30-5.90) m/uL Hgb 8.6 L (13.0-17.5) gm/dL Hct 27.3 L (39.0-53.0) % Chloride 109 H (98-107) mmol/L Carbon Dioxide 21 L (22-30) mmol/L BUN 42 H (9-20) mg/dL Creatinine 1.40 H (0.66-1.25) mg/dL Glucose 60 L (74-99) mg/dL POC Glucose (mg/dL) 74 L (75-99) mg/dL Total Protein 5.1 L (6.3-8.2) g/dL Albumin 3.0 L (3.5-5.0) g/dL 09/19/16 Range/Units 07:30 RBC (4.30-5.90) m/uL Hgb (13.0-17.5) gm/dL Hct (39.0-53.0) % Chloride (98-107) mmol/L Carbon Dioxide (22-30) mmol/L BUN (9-20) mg/dL Creatinine (0.66-1.25) mg/dL Glucose (74-99) mg/dL POC Glucose (mg/dL) 109 H (75-99) mg/dL Total Protein (6.3-8.2) g/dL Albumin (3.5-5.0) g/dL Microbiology - Last 24 Hours (Table) 09/15/16 13:00 Urine Culture - Final Urine,Catheterized Staphylococcus epidermidis Assessment and Plan Plan: Assessment and Plan Plan: Plan: 1 CABG secondary to acute coronary syndrome with mildly elevated troponin slight change in his EKG: patient underwent cardiac cath, required emergent CABG , patient is doing better today his pacer wire were removed, and he would be transferred to selective care. 2 non-STEMI with left main disease: Patient underwent emergent CABG . Continue to monitor the patient very closely. 3 acute respiratory failure status post CABG surgery. Continue nebulized treatment, continue patient on incentive spirometer, early ambulation. 4 acute pulmonary edema: Patient to be continued on furosemide, repeat chest x- ray 5 acute kidney injury secondary to hemodynamic instability and acute [place] status post CABG: Continue to watch BUN and creatinine closely 6 Chronic kidney disease stage III: Patient followed by nephrology. We'll continue to monitor BUN and creatinine. 7 type 2 diabetes: Patient is on insulin drip, plan to wean off insulin drip and change to long and short acting insulin. 8 COPD: Continue patient on O2, DuoNeb and Pulmicort, pulmonary is consulted 9 hyperlipidemia: Remain on simvastatin 40 mg a day and TriCor 54 mg daily. 10 BPH: Continue to watch for any urinary retention. 11 chronic tobacco use and dependency: We will add nicotine patch 21 milligrams daily. 12 history of CVA: Still with slight residual. 13 hypertension: continue metoprolol GI prophylaxis: Continue patient on pantoprazole 40 mg daily. DVT prophylaxis: Patient be on heparin 5000 units continues twice a day. CODE STATUS: Full code. Patient will be transferred to selective care.
[2016-09-19 17:07] LABS: Glucose,Whole Blood 159 mg/dL (75-99)
[2016-09-19 20:48] LABS: Glucose,Whole Blood 185 mg/dL (75-99)
[2016-09-19] MEDS: MUPIROCIN 2% OINT 22 GM TUBE NASAL SCH (20:56)
[2016-09-19] MEDS: SENNOSIDES-DOCUSATE SODIUM 1 EACH TAB PO SCH (21:04)
[2016-09-20] MEDS: HEPARIN SODIUM,PORCINE 5,000 UNIT/ML 1 ML VIAL SQ SCH ×2 (00:09→09:35)
[2016-09-20 02:19] LABS: Glucose,Whole Blood 59 mg/dL (75-99)
[2016-09-20] MEDS: HYDROcodone/APAP 5-325MG 1 EACH TAB PO PRN ×2 (02:21→20:25)
[2016-09-20 02:44] LABS: Glucose,Whole Blood 89 mg/dL (75-99)
[2016-09-20 06:24] LABS: Glucose,Whole Blood 61 mg/dL (75-99)
[2016-09-20 06:27] LABS: Glucose,Whole Blood 91 mg/dL (75-99)
[2016-09-20 06:27] LABS: CH 28.8; CHCM 31.4; HDW 2.96; Hypochromasia Slight; MCH 28.6 pg (25.0-35.0); MCV 92.4 fL (80.0-100.0); Mean Platelet Volume 7.3; RBC 3.14 m/uL (4.30-5.90); RDW 14.3 % (11.5-15.5); WBC 9.9 k/uL (3.8-10.6)
[2016-09-20 06:42] LABS: Calcium 8.4 mg/dL (8.4-10.2); Potassium 4.3 mmol/L (3.5-5.1); Total Bilirubin 0.5 mg/dL (0.2-1.3); Total Protein 5.4 g/dL (6.3-8.2)
--- NOTE | 2016-09-20 08:07 | XR ---
EXAMINATION TYPE: XR chest 1V portable DATE OF EXAM: 09/20/2016 HISTORY: post op cardiac surgery. REFERENCE: Previous study dated 09/19/2016. FINDINGS: There has been a midline sternotomy. There is a left pleural drain in place. There is bibasilar airspace disease. The heart is mildly enlarged. There are small bilateral effusion s. IMPRESSION: CONTINUING POSTOPERATIVE CHANGE.
[2016-09-20] MEDS ORDERED: FUROSEMIDE 10 MG/ML 2 ML VIAL IV ONE (08:55)
--- NOTE | 2016-09-20 08:57 | P.PN ---
Subjective Principal diagnosis: Non-STEMI, triple vessel coronary artery disease with left main disease requiring preoperative placement of intra-aortic balloon pump, flash pulmonary edema, moderate to severe left ventricular dysfunction. History of hypertension , hyperlipidemia, COPD, CVA, left carotid occlusion, type 2 diabetes, SVT, chronic kidney disease stage III, and current tobacco dependence. Calcified ascending aorta. POD #5 emergent quadruple coronary artery bypass grafting using the left internal mammary artery to the intra-myocardial left anterior descending artery , reverse saphenous vein graft connected to the aorta using the PAS-Port device and connected distally to the right coronary artery after local endarterectomy, reverse saphenous vein graft connected to the aorta using the PAS-Port device and anastomosed sequentially to the second obtuse marginal artery in a side-to- side fashion then the third obtuse marginal artery in an end to side fashion. Endoscopic harvesting of the left greater saphenous vein. Intraoperative transesophageal echocardiogram and epi-aortic scanning. Intraoperative graft flow measurements using the Medistim system. Acute postoperative hypoxic respiratory failure requiring mechanical ventilation , an expected outcome of surgical procedure. Patient is currently sitting up in the chair in no acute distress, eating breakfast. Was transferred to [address] [place] [address] yesterday. Objective - Vital Signs Vital signs: Vital Signs Temp 98.1 F 09/20/16 04:00 Pulse 80 09/20/16 04:00 Resp 17 09/20/16 04:00 BP 120/70 09/20/16 04:00 Pulse Ox 95 09/20/16 04:00 Intake & Output 09/19/16 09/20/16 09/20/16 18:59 06:59 18:59 Intake Total 134 Output Total 350 1110 Balance -216 -1110 Weight 90 kg Intake: IV 9 Pressure Bag 9 Oral 125 Output: Chest Tube Drainage 50 Left Pleural 50 Drainage 50 110 Left Whiting 50 110 Urine 250 1000 Other: Voiding Method Urinal Urinal # Voids 1 ABP, PAP, CO, CI - Last Documented Arterial Blood Pressure 109/52 Pulmonary Artery Pressure 38/22 Cardiac Output 5.6 Cardiac Index 2.9 - Constitutional General appearance: Present: cooperative, no acute distress - Respiratory Details: Lungs sounds diminished but coarse bilaterally. Respirations even, nonlabored. Currently on 3 L nasal cannula with oxygen saturation 95%. Able to achieve 1000 mL on his incentive spirometry. Left pleural chest tube to -20 cm wall suction. 300 mL serous fluid in the last 34 hours. No air leak present. - Cardiovascular Details: S1, S2 present. Regular rate and rhythm, normal sinus rhythm on telemetry. Sternum stable. Heart hugger placed patient demonstrating appropriate use. Teds/SCDs present. - Gastrointestinal Gastrointestinal Comment(s): Abdomen soft, nontender, nondistended. Active bowel sounds 4 quadrants. Tolerating diet. Positive bowel movement yesterday. - Genitourinary Genitourinary Comment(s): Continues to void clear, yellow urine per urinal, approximately 250-400 mL at a time. - Integumentary Integumentary Comment(s): Anterior chest incision well approximated covered with dry intact dressing. Left lower extremity EVH site well approximated with MARTIN drain in place, minimal drainage overnight. - Musculoskeletal Musculoskeletal: Present: gait normal, strength equal bilaterally - Psychiatric Psychiatric: Present: A&O x's 3, appropriate affect, intact judgment & insight - Allied health notes Allied health notes reviewed: nursing - Labs CBC & Chem 7: 09/20/16 05:32 09/20/16 05:32 Labs: Abnormal Lab Results - Last 24 Hours (Table) 09/19/16 09/19/16 09/19/16 Range/Units 11:35 12:40 13:01 RBC (4.30-5.90) m/uL Hgb (13.0-17.5) gm/dL Hct (39.0-53.0) % Chloride (98-107) mmol/L BUN (9-20) mg/dL Creatinine (0.66-1.25) mg/dL Glucose (74-99) mg/dL POC Glucose (mg/dL) 67 L 118 H (75-99) mg/dL Total Protein (6.3-8.2) g/dL Albumin (3.5-5.0) g/dL Urine Protein 1+ H (Negative) Urine Glucose (UA) 1+ H (Negative) 09/19/16 09/19/16 09/20/16 Range/Units 16:48 20:37 02:06 RBC (4.30-5.90) m/uL Hgb (13.0-17.5) gm/dL Hct (39.0-53.0) % Chloride (98-107) mmol/L BUN (9-20) mg/dL Creatinine (0.66-1.25) mg/dL Glucose (74-99) mg/dL POC Glucose (mg/dL) 159 H 185 H 59 L (75-99) mg/dL Total Protein (6.3-8.2) g/dL Albumin (3.5-5.0) g/dL Urine Protein (Negative) Urine Glucose (UA) (Negative) 09/20/16 09/20/16 09/20/16 Range/Units 05:32 05:32 06:05 RBC 3.14 L (4.30-5.90) m/uL Hgb 9.0 L (13.0-17.5) gm/dL Hct 29.0 L (39.0-53.0) % Chloride 112 H (98-107) mmol/L BUN 39 H (9-20) mg/dL Creatinine 1.51 H (0.66-1.25) mg/dL Glucose 54 L (74-99) mg/dL POC Glucose (mg/dL) 61 L (75-99) mg/dL Total Protein 5.4 L (6.3-8.2) g/dL Albumin 3.0 L (3.5-5.0) g/dL Urine Protein (Negative) Urine Glucose (UA) (Negative) Microbiology - Last 24 Hours (Table) 09/19/16 11:35 Urine Culture - Preliminary Urine,Clean Catch - Imaging and Cardiology Chest x-ray: image reviewed Assessment and Plan (1) Non-STEMI (non-ST elevated myocardial infarction) Status: Acute (2) Left main coronary artery disease Status: Acute (3) History of CVA (cerebrovascular accident) Status: Acute (4) Left carotid artery occlusion Status: Acute (5) COPD (chronic obstructive pulmonary disease) Status: Acute (6) Uncontrolled type 2 diabetes mellitus Status: Acute (7) Hyperlipidemia Status: Acute (8) Chronic kidney disease, stage III (moderate) Status: Acute (9) History of paroxysmal supraventricular tachycardia Status: Acute (10) Tobacco dependence Status: Acute (11) Obesity (BMI 30.0-34.9) Status: Acute (12) Hypertension Status: Acute Plan: 1. Continue aspirin, plavix, statin, heparin subcu, lopressor, hydralazine. 2. Wean oxygen as tolerated. Encourage incentive spirometer. Continue pulmicort. 3. Will discontinue left pleural chest tube, MARTIN drain today. 4. Will give lasix 20 mg IVP today. 5. Increase activity, ambulate in hallway. Dr. Ashby on consult for rehabilitation recommendations. 6. Avoid nephrotoxins. Bush Hog Operator on consult. Hold MATTY inhibitor for now per nephrology. 7. Diabetic management per primary care service. Episodes of hypoglycemia overnight, may need to adjust long-acting insulin. 8. Monitor daily labs, chest x-rays. 9. GI/DVT prophylaxis. 10. More recommendations as patient progresses. Time with Patient: Greater than 30
[2016-09-20] MEDS ORDERED: PANTOPRAZOLE 40 MG TABLET PO ONE (09:00)
[2016-09-20] MEDS ORDERED: METOPROLOL TARTRATE 25 MG TAB ONE (09:00)
[2016-09-20] MEDS ORDERED: HEPARIN SODIUM,PORCINE 5,000 UNIT/ML 1 ML VIAL ONE (09:00)
[2016-09-20] MEDS ORDERED: CLOPIDOGREL 75 MG TAB ONE (09:00)
[2016-09-20] MEDS ORDERED: hydrALAZINE HCL 25 MG TAB ONE (09:00)
[2016-09-20] MEDS ORDERED: ATORVASTATIN 40 MG TAB ONE (09:00)
[2016-09-20] MEDS ORDERED: ASPIRIN 325 MG TAB ONE (09:00)
[2016-09-20] MEDS: INSULIN LISPRO (humaLOG) 300 UNIT/3 ML VIAL SQ SCH ×4 (09:34→20:34)
[2016-09-20] MEDS: INSULIN DETEMIR 100 UNIT/ML 10 ML VIAL SQ SCH (09:34)
[2016-09-20] MEDS: ATORVASTATIN 40 MG TAB PO SCH (09:35)
[2016-09-20] MEDS: ASPIRIN 325 MG TAB PO SCH (09:35)
[2016-09-20] MEDS: PANTOPRAZOLE 40 MG TABLET PO SCH (09:35)
[2016-09-20] MEDS: METOPROLOL TARTRATE 25 MG TAB PO SCH ×3 (09:35→22:26)
[2016-09-20] MEDS: CLOPIDOGREL 75 MG TAB PO SCH (09:35)
[2016-09-20] MEDS: MUPIROCIN 2% OINT 22 GM TUBE NASAL SCH ×2 (09:35→20:31)
[2016-09-20] MEDS: hydrALAZINE HCL 25 MG TAB PO SCH (09:35)
--- NOTE | 2016-09-20 10:05 | P.PN ---
Subjective Patient is seen in follow-up for acute kidney injury on chronic kidney disease. Patient has chronic kidney disease stage III secondary to diabetic kidney disease with baseline creatinine near 1.5. Creatinine peaked at 2 and is 1.5 today. Patient presented with dyspnea and flash pulmonary edema. Patient underwent a cardiac catheterization on September 16 which revealed triple-vessel disease and subsequently underwent emergent CABG on September 16. He was extubated on September 16. Balloon pump has been removed and Primacor drip has been discontinued as well. He is nonoliguric. Oral intake has improved. Hemodynamically stable. He has been transferred out of the intensive care unit. Vital signs are stable. General: The patient appeared well nourished and normally developed. Intubated. HEENT: Head exam is unremarkable. Neck is without jugular venous distension. LUNGS: Scattered rhonchi. Breath sounds decreased. HEART: Rate and Rhythm are regular. First and second heart sounds normal. No murmurs, rubs or gallops. ABDOMEN: Abdominal exam reveals normal bowel sounds. Non-tender and non- distended. No evidence of peritonitis. EXTREMITITES: No clubbing, cyanosis, or edema. Objective - Vital Signs Vital signs: Vital Signs Temp 97.9 F 09/20/16 08:00 Pulse 88 09/20/16 08:00 Resp 16 09/20/16 08:00 BP 121/68 09/20/16 08:00 Pulse Ox 97 09/20/16 08:00 Intake & Output 09/19/16 09/20/16 09/20/16 18:59 06:59 18:59 Intake Total 134 Output Total 350 1110 490 Balance -216 -1110 -490 Weight 90 kg Intake: IV 9 Pressure Bag 9 Oral 125 Output: Chest Tube Drainage 50 175 Left Pleural 50 175 Drainage 50 110 115 Left Whiting 50 110 115 Urine 250 1000 200 Other: Voiding Method Urinal Urinal # Voids 1 ABP, PAP, CO, CI - Last Documented Arterial Blood Pressure 109/52 Pulmonary Artery Pressure 38/22 Cardiac Output 5.6 Cardiac Index 2.9 - Labs CBC & Chem 7: 09/20/16 05:32 09/20/16 05:32 Labs: Abnormal Lab Results - Last 24 Hours (Table) 09/19/16 09/19/16 09/19/16 Range/Units 11:35 12:40 13:01 RBC (4.30-5.90) m/uL Hgb (13.0-17.5) gm/dL Hct (39.0-53.0) % Chloride (98-107) mmol/L BUN (9-20) mg/dL Creatinine (0.66-1.25) mg/dL Glucose (74-99) mg/dL POC Glucose (mg/dL) 67 L 118 H (75-99) mg/dL Total Protein (6.3-8.2) g/dL Albumin (3.5-5.0) g/dL Urine Protein 1+ H (Negative) Urine Glucose (UA) 1+ H (Negative) 09/19/16 09/19/16 09/20/16 Range/Units 16:48 20:37 02:06 RBC (4.30-5.90) m/uL Hgb (13.0-17.5) gm/dL Hct (39.0-53.0) % Chloride (98-107) mmol/L BUN (9-20) mg/dL Creatinine (0.66-1.25) mg/dL Glucose (74-99) mg/dL POC Glucose (mg/dL) 159 H 185 H 59 L (75-99) mg/dL Total Protein (6.3-8.2) g/dL Albumin (3.5-5.0) g/dL Urine Protein (Negative) Urine Glucose (UA) (Negative) 09/20/16 09/20/16 09/20/16 Range/Units 05:32 05:32 06:05 RBC 3.14 L (4.30-5.90) m/uL Hgb 9.0 L (13.0-17.5) gm/dL Hct 29.0 L (39.0-53.0) % Chloride 112 H (98-107) mmol/L BUN 39 H (9-20) mg/dL Creatinine 1.51 H (0.66-1.25) mg/dL Glucose 54 L (74-99) mg/dL POC Glucose (mg/dL) 61 L (75-99) mg/dL Total Protein 5.4 L (6.3-8.2) g/dL Albumin 3.0 L (3.5-5.0) g/dL Urine Protein (Negative) Urine Glucose (UA) (Negative) Microbiology - Last 24 Hours (Table) 09/19/16 11:35 Urine Culture - Preliminary Urine,Clean Catch Assessment and Plan Plan: Assessment: #1. Nonoliguric acute kidney injury secondary to an secondary to hemodynamic instability and acute [place]. Patient also received contrast dye from cardiac catheterization in September 15. Creatinine peaked at 2 and is 1.5 today. #2. Chronic kidney disease stage III secondary to diabetic kidney disease with baseline creatinine near 1.5. #3. Metabolic acidosis secondary to acute kidney injury. Improving. #4. Volume overload. Improved. #5. Coronary artery disease status post cardiac catheterization and emergent CABG on September 15. #6. Hyperkalemia related to acute kidney injury and use of lactated Ringer's. Resolved. #7. Hypernatremia secondary to lack of oral water intake. Resolved. #8. Postoperative anemia. Hemoglobin stable. Plan: Fluids have been discontinued. Chan catheter also discontinued. Encourage oral intake. Avoid nephrotoxic agents and hypotensive episodes. Hold lisinopril for now. Continue to monitor renal function and urine output. Repeat electrolytes in the morning.
[2016-09-20 11:44] LABS: Glucose,Whole Blood 64 mg/dL (75-99)
[2016-09-20 11:44] LABS: Glucose,Whole Blood 54 mg/dL (75-99)
--- NOTE | 2016-09-20 11:44 | P.PN ---
Subjective 61-year-old male one of my office patient of known for long time with past medical history of CVA, PAD, CAD, COPD, chronic smoking, diabetes, chronic neuropathy and stage III kidney disease who was the hospital last in September 2015 for CVA. Patient has been doing well his blood sugar has been slightly elevated. Patient went to sleep was feeling well he woke up around 2:00 after midnight gasping for air having significant shortness of breath with mild tightness and pressure with mild cold sweat than slight wheezes and cough. Patient ended up coming to the emergency department at [facility] where was seen and evaluated surprisingly his chest x-ray showed sign of pulmonary edema first EKGs shows slight T waves inversion second EKG had mild change as well and his troponin continued to be mildly elevated. Patient was diagnosed with acute pulmonary edema secondary to congestive heart failure and possible from acute currently syndrome. Patient risk factor of having coronary artery disease extremely high at the time. Patient will be seen cardiology and possible need for an intervention with heart catheter. His chronic kidney disease with the current creatinine is quite bit elevated will involve nephrology diuresis patient and add Nitrol hopefully patient be more stable at this point and I hope creatinine will improve enough to allow him to go for heart catheter when he is ready. 09/16: The patient had worsening dyspnea and flash pulmonary edema. He underwent a cardiac catheterization which revealed more than 90% diffuse left main stenosis with moderate stenosis of the right coronary artery with some collaterals through the septals to the left system. He underwent an emergent CABG and required placement of a intra aortic balloon pump, this was placed by Dr. Cowan in the ship laborer. 2-D echo shows ejection fraction of 30% with no significant valvular abnormality. He is currently intubated and and is is on levophed and a primacor drip. He is also being followed by nephrology for his chronic kidney disease stage III. BUN 41, creatinine 1.78. Last chest x-ray showed vascular congestion and mild edema left basilar airspace disease, improving postoperative changes. The patient is also being followed by pulmonology. 09/17: The patient was extubated yesterday he did have some respiratory distress overnight and required placement of a BiPAP. Right femoral intra-aortic balloon pump was also removed yesterday he was weaned off levophed in Primacor drip was also turned off. Repeat chest x-ray showed postsurgical change worsening bibasilar airspace disease, small bilateral effusions, and worsening subcutaneous emphysema on the left. The patient continues to be followed by pulmonology. Kidney function slightly improved from yesterday BUN 34 creatinine 1.9. 09/18: The patient was evaluated today he was sitting up in the chair eating breakfast. The patient is off BiPAP and remains on nasal cannula. BUN/ creatinine remain elevated, but again have improved since yesterday nightly 39, creatinine 1.7. PT/OT was consulted. The patient will be encouraged to get out of bed and start to ambulate. chest x-ray shows persisting cardiomegaly with moderate central vascular congestion and bibasilar infiltrate or atelectasis and likely small bilateral pleural effusions. Left chest tube and two mediastinal drain catheters remain present. 09/19/2016: Patient is feeling a bit better today, he continues to have some pain in the on and off, he is having a burning sensation in the left lower x-ray , his pacer wire were removed, and the patient will be [facility]. 09/20/2016: Patient was transferred out of the intensive care unit yesterday he is sitting up in chair, continue to have some soreness in his left lower extremity, he is using incentive spirometer, patient did have an episode of hypoglycemia, subsequently we'll decrease his Levemir to 32 units subcutaneously at bedtime along with sliding scale insulin. Patient did receive apple juice after his blood glucose level was checked at the bedside at 51. Objective - Vital Signs Vital signs: Vital Signs Temp 97.9 F 09/20/16 08:00 Pulse 88 09/20/16 08:00 Resp 16 09/20/16 08:00 BP 121/68 09/20/16 08:00 Pulse Ox 97 09/20/16 08:00 Intake & Output 09/19/16 09/20/16 09/20/16 18:59 06:59 18:59 Intake Total 134 Output Total 350 1110 490 Balance -216 -1110 -775 Weight 90 kg Intake: IV 9 Pressure Bag 9 Oral 125 Output: Chest Tube Drainage 50 175 Left Pleural 50 175 Drainage 50 110 115 Left Whiting 50 110 115 Urine 250 1000 200 Other: Voiding Method Urinal Urinal # Voids 1 ABP, PAP, CO, CI - Last Documented Arterial Blood Pressure 109/52 Pulmonary Artery Pressure 38/22 Cardiac Output 5.6 Cardiac Index 2.9 - Exam - Constitutional General appearance: no average body habitus, cooperative, disheveled, no mild distress, no morbidly obese, no acute distress, no obese, no severe distress, no thin - EENT Eyes: abnormal pupil, no anicteric sclerae, no disc margins sharp, no edentulous , no EOMI, no PERRLA, no fundus normal, no photophobia, no dentition normal, no poor dentition, no ptosis, no scleral icterus, normal appearance ENT: hard of hearing, no hearing grossly normal, no NA/AT, normal oropharynx, no other, no pharyngeal erythema, no thrush, no tonsillar exudates, no tonsillar swelling Ears: bilateral: normal - Neck Neck: no lymphadenopathy, normal ROM, no other, no rigidity, no stridor, no thyromegaly Carotids: bilateral: upstroke normal Thyroid: bilateral: normal size - Respiratory Respiratory: bilateral: diminished, dullness, rales, rhonchi, wheezing - Cardiovascular Rhythm: regular Heart sounds: normal: S1, S2 Abnormal Heart Sounds: systolic murmur, S3 Gallop - Gastrointestinal General gastrointestinal: no absent bowel sounds, decreased bowel sounds, no distended, no hepatomegaly, no hyperactive bowel sounds, normal bowel sounds, no organomegaly, no rigid, no scaphoid, soft, no splenomegaly, no tenderness, no umbilical hernia, no ventral hernia - Integumentary Integumentary: no calor, no cellulitis, no cyanotic, no decreased turgor, no flushed, no jaundiced, normal, no normal turgor, pale, rash, no ulcer - Neurologic Neurologic: CNII-XII intact - Musculoskeletal Musculoskeletal: no gait normal, generalized weakness, no strength equal bilaterally, no right sided weakness, no left sided weakness - Psychiatric Psychiatric: A&O x's 3, no appropriate affect, no intact judgment & insight - Labs CBC & Chem 7: 09/20/16 05:32 09/20/16 05:32 Labs: Abnormal Lab Results - Last 24 Hours (Table) 09/19/16 09/19/16 09/19/16 Range/Units 11:35 12:40 13:01 RBC (4.30-5.90) m/uL Hgb (13.0-17.5) gm/dL Hct (39.0-53.0) % Chloride (98-107) mmol/L BUN (9-20) mg/dL Creatinine (0.66-1.25) mg/dL Glucose (74-99) mg/dL POC Glucose (mg/dL) 67 L 118 H (75-99) mg/dL Total Protein (6.3-8.2) g/dL Albumin (3.5-5.0) g/dL Urine Protein 1+ H (Negative) Urine Glucose (UA) 1+ H (Negative) 09/19/16 09/19/16 09/20/16 Range/Units 16:48 20:37 02:06 RBC (4.30-5.90) m/uL Hgb (13.0-17.5) gm/dL Hct (39.0-53.0) % Chloride (98-107) mmol/L BUN (9-20) mg/dL Creatinine (0.66-1.25) mg/dL Glucose (74-99) mg/dL POC Glucose (mg/dL) 159 H 185 H 59 L (75-99) mg/dL Total Protein (6.3-8.2) g/dL Albumin (3.5-5.0) g/dL Urine Protein (Negative) Urine Glucose (UA) (Negative) 09/20/16 09/20/16 09/20/16 Range/Units 05:32 05:32 06:05 RBC 3.14 L (4.30-5.90) m/uL Hgb 9.0 L (13.0-17.5) gm/dL Hct 29.0 L (39.0-53.0) % Chloride 112 H (98-107) mmol/L BUN 39 H (9-20) mg/dL Creatinine 1.51 H (0.66-1.25) mg/dL Glucose 54 L (74-99) mg/dL POC Glucose (mg/dL) 61 L (75-99) mg/dL Total Protein 5.4 L (6.3-8.2) g/dL Albumin 3.0 L (3.5-5.0) g/dL Urine Protein (Negative) Urine Glucose (UA) (Negative) Microbiology - Last 24 Hours (Table) 09/19/16 11:35 Urine Culture - Preliminary Urine,Clean Catch Assessment and Plan Plan: Assessment and Plan Plan: Plan: 1 CABG secondary to acute coronary syndrome with mildly elevated troponin slight change in his EKG: patient underwent cardiac cath, required emergent CABG , patient is doing better today his pacer wire were removed, and he would be [facility]. 2 non-STEMI with left main disease: Patient underwent emergent CABG . Continue to monitor the patient very closely. 3 acute respiratory failure status post CABG surgery. Continue nebulized treatment, continue patient on incentive spirometer, early ambulation. 4 acute pulmonary edema: Patient to be continued on furosemide, repeat chest x- ray 5 acute kidney injury secondary to hemodynamic instability and acute IL status post CABG: Continue to watch BUN and creatinine closely 6 Chronic kidney disease stage III: Patient followed by nephrology. We'll continue to monitor BUN and creatinine. 7 type 2 diabetes with episodic hypoglycemia. Decrease Levemir to 30 units at bedtime along with sliding scale insulin. Monitor the patient very closely for hypoglycemia. 8 COPD: Continue patient on O2, DuoNeb and Pulmicort, pulmonary is consulted 9 hyperlipidemia: Remain on simvastatin 40 mg a day and TriCor 54 mg daily. 10 BPH: Continue to watch for any urinary retention. 11 chronic tobacco use and dependency: We will add nicotine patch 21 milligrams daily. 12 history of CVA: Still with slight residual. 13 hypertension: continue metoprolol 14. GI prophylaxis: Continue patient on pantoprazole 40 mg daily. 15. DVT prophylaxis: Patient be on heparin 5000 units continues twice a day. 16. CODE STATUS: Full code.
[2016-09-20] MEDS: CHOLECALCIFEROL 1,000 UNIT TAB PO SCH (11:52)
[2016-09-20 12:01] LABS: Glucose,Whole Blood 104 mg/dL (75-99)
--- NOTE | 2016-09-20 12:03 | P.PN ---
Subjective Principal diagnosis: Non-STEMI This is a 60-year-old gentleman who presented to the hospital with a non-ST elevation myocardial infarction. He underwent coronary artery bypass grafting surgery, feeling overall much better today. Being followed on the telemetry unit. We will repeat a limited echo tomorrow to assess LV function, if the LV function does not improve patient may require a LifeVest prior to discharge. Creatinine is 1.5 today, we will initiate a small dose of MATTY inhibitor. This was discussed with Dr. Lester as well. Blood pressure 120/60 with a heart rate in the 80s. Objective - Vital Signs Vital signs: Vital Signs Temp 97.9 F 09/20/16 08:00 Pulse 88 09/20/16 08:00 Resp 16 09/20/16 08:00 BP 121/68 09/20/16 08:00 Pulse Ox 97 09/20/16 08:00 Intake & Output 09/19/16 09/20/16 09/20/16 18:59 06:59 18:59 Intake Total 134 Output Total 350 1110 490 Balance -216 -1110 -490 Weight 90 kg Intake: IV 9 Pressure Bag 9 Oral 125 Output: Chest Tube Drainage 50 175 Left Pleural 50 175 Drainage 50 110 115 Left Whiting 50 110 115 Urine 250 1000 200 Other: Voiding Method Urinal Urinal # Voids 1 ABP, PAP, CO, CI - Last Documented Arterial Blood Pressure 109/52 Pulmonary Artery Pressure 38/22 Cardiac Output 5.6 Cardiac Index 2.9 - Exam PHYSICAL EXAMINATION: HEENT: Head is atraumatic, normocephalic. Pupils equal, round. Neck is supple. There is no elevated jugular venous pressure. HEART EXAMINATION: Heart S1, S2 normal. No murmur or gallop heard. CHEST EXAMINATION: Circumflex clear with diminished air entry to bilateral bases. ABDOMEN: Soft, nontender. Bowel sounds are heard. No organomegaly noted. EXTREMITIES: 2+ peripheral pulses with evidence of peripheral edema and no calf tenderness noted. Bilateral TRINA hose in place. NEUROLOGIC patient is awake, alert and oriented -3. . - Labs CBC & Chem 7: 09/20/16 05:32 09/20/16 05:32 Labs: Abnormal Lab Results - Last 24 Hours (Table) 09/19/16 09/19/16 09/19/16 Range/Units 11:35 12:40 13:01 RBC (4.30-5.90) m/uL Hgb (13.0-17.5) gm/dL Hct (39.0-53.0) % Chloride (98-107) mmol/L BUN (9-20) mg/dL Creatinine (0.66-1.25) mg/dL Glucose (74-99) mg/dL POC Glucose (mg/dL) 67 L 118 H (75-99) mg/dL Total Protein (6.3-8.2) g/dL Albumin (3.5-5.0) g/dL Urine Protein 1+ H (Negative) Urine Glucose (UA) 1+ H (Negative) 09/19/16 09/19/16 09/20/16 Range/Units 16:48 20:37 02:06 RBC (4.30-5.90) m/uL Hgb (13.0-17.5) gm/dL Hct (39.0-53.0) % Chloride (98-107) mmol/L BUN (9-20) mg/dL Creatinine (0.66-1.25) mg/dL Glucose (74-99) mg/dL POC Glucose (mg/dL) 159 H 185 H 59 L (75-99) mg/dL Total Protein (6.3-8.2) g/dL Albumin (3.5-5.0) g/dL Urine Protein (Negative) Urine Glucose (UA) (Negative) 09/20/16 09/20/16 09/20/16 Range/Units 05:32 05:32 06:05 RBC 3.14 L (4.30-5.90) m/uL Hgb 9.0 L (13.0-17.5) gm/dL Hct 29.0 L (39.0-53.0) % Chloride 112 H (98-107) mmol/L BUN 39 H (9-20) mg/dL Creatinine 1.51 H (0.66-1.25) mg/dL Glucose 54 L (74-99) mg/dL POC Glucose (mg/dL) 61 L (75-99) mg/dL Total Protein 5.4 L (6.3-8.2) g/dL Albumin 3.0 L (3.5-5.0) g/dL Urine Protein (Negative) Urine Glucose (UA) (Negative) 09/20/16 09/20/16 Range/Units 11:12 11:24 RBC (4.30-5.90) m/uL Hgb (13.0-17.5) gm/dL Hct (39.0-53.0) % Chloride (98-107) mmol/L BUN (9-20) mg/dL Creatinine (0.66-1.25) mg/dL Glucose (74-99) mg/dL POC Glucose (mg/dL) 54 L 64 L (75-99) mg/dL Total Protein (6.3-8.2) g/dL Albumin (3.5-5.0) g/dL Urine Protein (Negative) Urine Glucose (UA) (Negative) Microbiology - Last 24 Hours (Table) 09/19/16 11:35 Urine Culture - Preliminary Urine,Clean Catch Assessment and Plan Plan: Assessment and plan #1 non-ST elevation myocardial infarction, status post coronary bypass grafting surgery #2 hypertensive urgency #3 history of hypertension #4 congestive cardiac failure systolic acute on chronic #5 diabetes #6 hyperlipidemia #7 nicotine dependence #8 COPD #9 acute on chronic kidney disease #10 prior TIA #11 abnormal liver enzymes likely secondary to congestion Plan We will repeat limited echo cardiac gram with Doppler study tomorrow to assess the patient's LV function. We will also start the patient on lisinopril 2.5 mg one tablet by mouth daily and discontinue the hydralazine. DNP note has been reviewed, I agree with a documented findings and plan of care. Patient was seen and examined.
--- NOTE | 2016-09-20 15:02 | PN ---
DATE OF SERVICE: 09/20/2016 He has remained hemodynamically stable. He is less short of breath. His IS is up to 1000. On physical examination, blood pressure is 113/65, respiratory rate 16, pulse rate 82, temperature 98 degrees Fahrenheit, O2 sat on 2 liters by nasal cannula is 96%. HEENT reveals pupils that are equal. Chest reveals decreased breath sounds at the bases. Cardiovascular system reveals an S1, S2. ABDOMEN: Soft. There is trace pedal edema. Labs reveal a glucose of 104. IMPRESSION: 1. Coronary artery disease, status post coronary artery bypass. 2. Cardiomyopathy. 3. Accelerated hypertension. PLAN: At this point in time, continue BiPAP only as needed. Increase activity level. Encourage intensive spirometry. Optimize her fluid status.
[2016-09-20] MEDS ORDERED: DEXTROSE 5% IN WATER 100 ML with AMIODARONE 150 MG IV ONE ×4 (15:17→19:00)
[2016-09-20] MEDS ORDERED: HEPARIN SODIUM,PORCINE 5,000 UNIT/ML 1 ML VIAL IV PRN (15:19)
[2016-09-20] MEDS ORDERED: HEPARIN SODIUM,PORCINE 5,000 UNIT/ML 1 ML VIAL IV ONE (15:45)
[2016-09-20] MEDS ORDERED: HEPARIN SODIUM,PORCINE/D5W PMX 25,000 UNIT in DEXTROSE/WATER 1 500ML.BAG IV SCH (16:00)
[2016-09-20 16:11] LABS: Glucose,Whole Blood 109 mg/dL (75-99)
[2016-09-20] MEDS: AMIODARONE 450 MG in DEXTROSE 5% IN WATER 250 ML IV SCH ×4 (16:25→23:51)
[2016-09-20] MEDS: LISINOPRIL 2.5 MG TAB PO SCH (16:44)
[2016-09-20] MEDS: BUDESONIDE 0.5 MG/2 ML NEBU INHALATION SCH ×2 (16:52→21:05)
[2016-09-20 17:13] LABS: Glucose,Whole Blood 106 mg/dL (75-99)
[2016-09-20] MEDS ORDERED: DIGOXIN 250 MCG/ML 2 ML AMP IVP STA (17:40)
[2016-09-20] MEDS: SENNOSIDES-DOCUSATE SODIUM 1 EACH TAB PO SCH (20:27)
[2016-09-20 20:28] LABS: Glucose,Whole Blood 157 mg/dL (75-99)
[2016-09-20] MEDS ORDERED: DIGOXIN 250 MCG/ML 2 ML AMP IVP ONE (21:00)
[2016-09-20] MEDS ORDERED: INSULIN DETEMIR 100 UNIT/ML 10 ML VIAL SQ SCH (21:00)
[2016-09-20] MEDS: IPRATROPIUM-ALBUTEROL 3 ML NEB INHALATION PRN (21:05)
[2016-09-21] MEDS ORDERED: DIGOXIN 250 MCG/ML 2 ML AMP IVP ONE (01:00)
[2016-09-21] MEDS: ALPRAZolam 0.25 MG TAB PO PRN ×2 (03:35→21:31)
[2016-09-21 03:53] LABS: Basophils % (A) 0 %; CH 28.7; CHCM 31.6; Eosinophils # (A) 0.1 k/uL (0-0.7); Eosinophils % (A) 1 %; HCT 29.7 % (39.0-53.0); HDW 2.96; HGB 9.2 gm/dL (13.0-17.5); Hypochromasia Slight; Luc # (Auto) 0.21; Luc % (Auto) 2; Lymphocytes # (A) 1.3 k/uL (1.0-4.8); Lymphocytes % (A) 13 %; MCH 28.3 pg (25.0-35.0); MCHC 30.9 g/dL (31.0-37.0); MCV 91.6 fL (80.0-100.0); Mean Platelet Volume 7.2; Monocytes # (A) 0.5 k/uL (0-1.0); Monocytes % (A) 5 %; Neutrophils # (A) 7.8 k/uL (1.3-7.7); Neutrophils % (A) 79 %; RBC 3.25 m/uL (4.30-5.90); RDW 14.1 % (11.5-15.5); WBC 9.9 k/uL (3.8-10.6); WBC (Perox) 10.66
[2016-09-21 04:11] LABS: Calcium 8.1 mg/dL (8.4-10.2); Potassium 4.1 mmol/L (3.5-5.1); Total Bilirubin 0.6 mg/dL (0.2-1.3); Total Protein 5.4 g/dL (6.3-8.2)
[2016-09-21 04:31] LABS: Glucose,Whole Blood 53 mg/dL (75-99)
[2016-09-21 04:52] LABS: Glucose,Whole Blood 88 mg/dL (75-99)
[2016-09-21] MEDS: HYDROcodone/APAP 5-325MG 1 EACH TAB PO PRN ×3 (06:11→21:31)
[2016-09-21] MEDS: PANTOPRAZOLE 40 MG TABLET PO SCH (06:11)
[2016-09-21] MEDS: INSULIN LISPRO (humaLOG) 300 UNIT/3 ML VIAL SQ SCH ×4 (06:41→21:27)
--- NOTE | 2016-09-21 07:26 | XR ---
EXAMINATION TYPE: XR chest 2V DATE OF EXAM: 09/21/2016 COMPARISON: 09/20/2016 HISTORY: Shortness of breath TECHNIQUE: Frontal and lateral views of the chest are obtained. FINDINGS: Left-sided chest tube has been removed. No evidence for sizable pneumothorax. Venous congestion and scattered infiltrates as well as basilar atelectasis and small effusions persis t. Small amount of subcutaneous air left lower chest wall. Heart size is stable. Mediastinal structures are stable and grossly unremarkable. No evidence for hilar prominence. Degenerative changes dorsal spine. IMPRESSION: 1. Left-sided chest tube has been removed. No evidence for sizable pneumothorax. 2. Venous congestion and scattered infiltrates as well as basilar atelectasis and small effusions per sist.
[2016-09-21] MEDS: AMIODARONE 450 MG in DEXTROSE 5% IN WATER 250 ML IV SCH ×4 (07:36→15:26)
[2016-09-21] MEDS ORDERED: DEXTROSE 5% IN WATER 100 ML with AMIODARONE 150 MG IV ONE (08:00)
[2016-09-21] MEDS: METOPROLOL TARTRATE 25 MG TAB PO SCH ×3 (08:04→19:47)
[2016-09-21] MEDS: ASPIRIN 325 MG TAB PO SCH (08:04)
[2016-09-21] MEDS: HEPARIN SODIUM,PORCINE 5,000 UNIT/ML 1 ML VIAL SQ SCH ×3 (08:04→23:22)
[2016-09-21] MEDS: LISINOPRIL 2.5 MG TAB PO SCH (08:04)
[2016-09-21] MEDS: CLOPIDOGREL 75 MG TAB PO SCH (08:04)
[2016-09-21] MEDS: ATORVASTATIN 40 MG TAB PO SCH (08:04)
[2016-09-21] MEDS: BUDESONIDE 0.5 MG/2 ML NEBU INHALATION SCH ×2 (08:05→20:41)
[2016-09-21] MEDS: MUPIROCIN 2% OINT 22 GM TUBE NASAL SCH ×2 (08:05→19:51)
[2016-09-21] MEDS: IPRATROPIUM-ALBUTEROL 3 ML NEB INHALATION PRN ×2 (08:05→20:41)
[2016-09-21] MEDS ORDERED: FUROSEMIDE 10 MG/ML 2 ML VIAL IV ONE ×2 (08:40→16:32)
--- NOTE | 2016-09-21 08:45 | P.PN ---
Subjective Principal diagnosis: Non-STEMI, triple vessel coronary artery disease with left main disease requiring preoperative placement of intra-aortic balloon pump, flash pulmonary edema, moderate to severe left ventricular dysfunction. History of hypertension , hyperlipidemia, COPD, CVA, left carotid occlusion, type 2 diabetes, SVT, chronic kidney disease stage III, and current tobacco dependence. Calcified ascending aorta. POD #6 emergent quadruple coronary artery bypass grafting using the left internal mammary artery to the intra-myocardial left anterior descending artery , reverse saphenous vein graft connected to the aorta using the PAS-Port device and connected distally to the right coronary artery after local endarterectomy, reverse saphenous vein graft connected to the aorta using the PAS-Port device and anastomosed sequentially to the second obtuse marginal artery in a side-to- side fashion then the third obtuse marginal artery in an end to side fashion. Endoscopic harvesting of the left greater saphenous vein. Intraoperative transesophageal echocardiogram and epi-aortic scanning. Intraoperative graft flow measurements using the Gigmaxstim system. Acute postoperative hypoxic respiratory failure requiring mechanical ventilation , an expected outcome of surgical procedure. Patient is currently sitting up in the chair in no acute distress, eating breakfast. Patient went into A. fib RVR yesterday. Received 1 bolus amiodarone as well as 3 doses of digoxin IV. Continues to be in A. fib RVR with brief episodes of normal sinus rhythm. Objective - Vital Signs Vital signs: Vital Signs Temp 97.8 F 09/21/16 04:00 Pulse 81 09/21/16 04:00 Resp 18 09/21/16 04:00 BP 131/72 09/21/16 04:00 Pulse Ox 94 L 09/21/16 04:00 Intake & Output 09/20/16 09/21/16 09/21/16 18:59 06:59 18:59 Intake Total 249.74 132.614 Output Total 490 200 Balance -490 49.74 132.614 Weight 84.8 kg Intake: Intake, IV Titration 249.74 132.614 Amount Amiodarone 450 mg In 249.74 132.614 Dextrose 5% in Water 250 ml @ 1 MG/MIN 34.53 mls/ hr IV .[id number] TERESA Rx#: [id number] Output: Chest Tube Drainage 175 Left Pleural 175 Drainage 115 Left Whiting 115 Urine 200 200 Other: Voiding Method Urinal # Voids 1 ABP, PAP, CO, CI - Last Documented Arterial Blood Pressure 109/52 Pulmonary Artery Pressure 38/22 Cardiac Output 5.6 Cardiac Index 2.9 - Constitutional General appearance: Present: cooperative, no acute distress - Respiratory Details: Lungs sounds diminished with coarse breath sounds in the bases. Respirations even, nonlabored. Currently on 2 L nasal cannula with oxygen saturation 94%. Able to achieve 1000 mL on his incentive spirometry. - Cardiovascular Details: S1, S2 present. Irregular, tachycardia rate and rhythm, A. fib with RVR on telemetry. Sternum stable. Heart hugger in place with patient demonstrating appropriate use. Trace bilateral lower extremity edema present. Teds/SCDs present. - Gastrointestinal Gastrointestinal Comment(s): Abdomen soft, nontender, nondistended. Active bowel sounds 4 quadrants. Tolerating diet. - Genitourinary Genitourinary Comment(s): Continues to void clear, yellow urine. - Integumentary Integumentary Comment(s): Anterior chest incision well approximated and covered with dry intact dressing. Left lower extremity EVH site well approximated. - Musculoskeletal Musculoskeletal: Present: gait normal, strength equal bilaterally - Psychiatric Psychiatric: Present: A&O x's 3, appropriate affect, intact judgment & insight - Allied health notes Allied health notes reviewed: nursing - Labs CBC & Chem 7: 09/21/16 03:40 09/21/16 03:40 Labs: Abnormal Lab Results - Last 24 Hours (Table) 09/20/16 09/20/16 09/20/16 Range/Units 11:12 11:24 11:46 RBC (4.30-5.90) m/uL Hgb (13.0-17.5) gm/dL Hct (39.0-53.0) % MCHC (31.0-37.0) g/dL Neutrophils # (1.3-7.7) k/uL Chloride (98-107) mmol/L Carbon Dioxide (22-30) mmol/L BUN (9-20) mg/dL Creatinine (0.66-1.25) mg/dL Glucose (74-99) mg/dL POC Glucose (mg/dL) 54 L 64 L 104 H (75-99) mg/dL Calcium (8.4-10.2) mg/dL Total Protein (6.3-8.2) g/dL Albumin (3.5-5.0) g/dL 09/20/16 09/20/16 09/20/16 Range/Units 15:46 17:02 20:27 RBC (4.30-5.90) m/uL Hgb (13.0-17.5) gm/dL Hct (39.0-53.0) % MCHC (31.0-37.0) g/dL Neutrophils # (1.3-7.7) k/uL Chloride (98-107) mmol/L Carbon Dioxide (22-30) mmol/L BUN (9-20) mg/dL Creatinine (0.66-1.25) mg/dL Glucose (74-99) mg/dL POC Glucose (mg/dL) 109 H 106 H 157 H (75-99) mg/dL Calcium (8.4-10.2) mg/dL Total Protein (6.3-8.2) g/dL Albumin (3.5-5.0) g/dL 09/21/16 09/21/16 09/21/16 Range/Units 03:40 03:40 04:20 RBC 3.25 L (4.30-5.90) m/uL Hgb 9.2 L (13.0-17.5) gm/dL Hct 29.7 L (39.0-53.0) % MCHC 30.9 L (31.0-37.0) g/dL Neutrophils # 7.8 H (1.3-7.7) k/uL Chloride 110 H (98-107) mmol/L Carbon Dioxide 19 L (22-30) mmol/L BUN 33 H (9-20) mg/dL Creatinine 1.54 H (0.66-1.25) mg/dL Glucose 49 L* (74-99) mg/dL POC Glucose (mg/dL) 53 L (75-99) mg/dL Calcium 8.1 L (8.4-10.2) mg/dL Total Protein 5.4 L (6.3-8.2) g/dL Albumin 3.0 L (3.5-5.0) g/dL Microbiology - Last 24 Hours (Table) 09/19/16 11:35 Urine Culture - Final Urine,Clean Catch - Imaging and Cardiology Chest x-ray: image reviewed Assessment and Plan (1) Non-STEMI (non-ST elevated myocardial infarction) Status: Acute (2) Left main coronary artery disease Status: Acute (3) History of CVA (cerebrovascular accident) Status: Acute (4) Left carotid artery occlusion Status: Acute (5) COPD (chronic obstructive pulmonary disease) Status: Acute (6) Uncontrolled type 2 diabetes mellitus Status: Acute (7) Hyperlipidemia Status: Acute (8) Chronic kidney disease, stage III (moderate) Status: Acute (9) History of paroxysmal supraventricular tachycardia Status: Acute (10) Tobacco dependence Status: Acute (11) Obesity (BMI 30.0-34.9) Status: Acute (12) Hypertension Status: Acute (13) Paroxysmal atrial fibrillation with rapid ventricular response Status: Acute Plan: 1. Continue aspirin, plavix, statin, heparin subcu, lopressor. MATTY inhibitor restarted per cardiology. 2. Wean oxygen as tolerated. Encourage incentive spirometer. Continue pulmicort. 3. Continue IV amiodarone until present bag is finished. Oral amiodarone to be started this morning. 4. Will give lasix 20 mg IVP today. 5. Will ultrasound right chest for possible thoracentesis. 6. Increase activity, ambulate in hallway. Dr. Ashby on consult for rehabilitation recommendations. 7. Avoid nephrotoxins. Medical/Surgery Registered Nurse on consult. 8. Diabetic management per primary care service. Episodes of hypoglycemia again overnight, may need to adjust long-acting insulin further. 9. Monitor daily labs, chest x-rays. 10. GI/DVT prophylaxis. 11. More recommendations as patient progresses. Time with Patient: Greater than 30
[2016-09-21] MEDS: AMIODARONE 200 MG TAB PO SCH ×2 (09:02→19:47)
--- NOTE | 2016-09-21 10:12 | US ---
EXAMINATION TYPE: US chest DATE OF EXAM: 09/21/2016 COMPARISON: x-ray CLINICAL HISTORY: measure right side for possible thoracentesis. EXAM MEASUREMENTS: Right Pleural Effusion fluid pocket: 1.5 cm Right skin to fluid thickness: 3.2 cm IMPRESSIONS: Right side marked for possible thoracentesis outside the dept. Left side marked for possible thoracentesis outside the dept. Pulmonologists are able to review the images in the patient?s EMR.
--- NOTE | 2016-09-21 10:30 | P.PN ---
Subjective Patient is seen in follow-up for acute kidney injury on chronic kidney disease. Patient has chronic kidney disease stage III secondary to diabetic kidney disease with baseline creatinine near 1.5. Creatinine peaked at 2 and is 1.5 today. Patient presented with dyspnea and flash pulmonary edema. Patient underwent a cardiac catheterization on September 16 which revealed triple-vessel disease and subsequently underwent emergent CABG on September 16. He was extubated on September 16. Balloon pump has been removed and Primacor drip has been discontinued as well. He is nonoliguric. Oral intake has improved. Hemodynamically stable. He has been transferred out of the intensive care unit. No active complaints at this time. Did develop Afib with rvr yesterday and is on amiodarone drip. Vital signs are stable. General: The patient appeared well nourished and normally developed. Intubated. HEENT: Head exam is unremarkable. Neck is without jugular venous distension. LUNGS: Scattered rhonchi. Breath sounds decreased. HEART: Rate and Rhythm are regular. First and second heart sounds normal. No murmurs, rubs or gallops. ABDOMEN: Abdominal exam reveals normal bowel sounds. Non-tender and non- distended. No evidence of peritonitis. EXTREMITITES: No clubbing, cyanosis, or edema. Objective - Vital Signs Vital signs: Vital Signs Temp 97.8 F 09/21/16 08:04 Pulse 80 09/21/16 08:55 Resp 20 09/21/16 08:04 BP 103/56 09/21/16 08:04 Pulse Ox 97 09/21/16 08:04 Intake & Output 09/20/16 09/21/16 09/21/16 18:59 06:59 18:59 Intake Total 249.74 132.614 Output Total 490 200 Balance -490 49.74 132.614 Weight 84.8 kg Intake: Intake, IV Titration 249.74 132.614 Amount Amiodarone 450 mg In 249.74 132.614 Dextrose 5% in Water 250 ml @ 1 MG/MIN 34.53 mls/ hr IV .Q7H31M [facility] Rx#: [id number] Output: Chest Tube Drainage 175 Left Pleural 175 Drainage 115 Left Wh[place] 115 Urine 200 200 Other: Voiding Method Urinal Urinal # Voids 1 ABP, PAP, CO, CI - Last Documented Arterial Blood Pressure 109/52 Pulmonary Artery Pressure 38/22 Cardiac Output 5.6 Cardiac Index 2.9 - Labs CBC & Chem 7: 09/21/16 03:40 09/21/16 03:40 Labs: Abnormal Lab Results - Last 24 Hours (Table) 09/20/16 09/20/16 09/20/16 Range/Units 11:12 11:24 11:46 RBC (4.30-5.90) m/uL Hgb (13.0-17.5) gm/dL Hct (39.0-53.0) % MCHC (31.0-37.0) g/dL Neutrophils # (1.3-7.7) k/uL Chloride (98-107) mmol/L Carbon Dioxide (22-30) mmol/L BUN (9-20) mg/dL Creatinine (0.66-1.25) mg/dL Glucose (74-99) mg/dL POC Glucose (mg/dL) 54 L 64 L 104 H (75-99) mg/dL Calcium (8.4-10.2) mg/dL Total Protein (6.3-8.2) g/dL Albumin (3.5-5.0) g/dL 09/20/16 09/20/16 09/20/16 Range/Units 15:46 17:02 20:27 RBC (4.30-5.90) m/uL Hgb (13.0-17.5) gm/dL Hct (39.0-53.0) % MCHC (31.0-37.0) g/dL Neutrophils # (1.3-7.7) k/uL Chloride (98-107) mmol/L Carbon Dioxide (22-30) mmol/L BUN (9-20) mg/dL Creatinine (0.66-1.25) mg/dL Glucose (74-99) mg/dL POC Glucose (mg/dL) 109 H 106 H 157 H (75-99) mg/dL Calcium (8.4-10.2) mg/dL Total Protein (6.3-8.2) g/dL Albumin (3.5-5.0) g/dL 09/21/16 09/21/16 09/21/16 Range/Units 03:40 03:40 04:20 RBC 3.25 L (4.30-5.90) m/uL Hgb 9.2 L (13.0-17.5) gm/dL Hct 29.7 L (39.0-53.0) % MCHC 30.9 L (31.0-37.0) g/dL Neutrophils # 7.8 H (1.3-7.7) k/uL Chloride 110 H (98-107) mmol/L Carbon Dioxide 19 L (22-30) mmol/L BUN 33 H (9-20) mg/dL Creatinine 1.54 H (0.66-1.25) mg/dL Glucose 49 L* (74-99) mg/dL POC Glucose (mg/dL) 53 L (75-99) mg/dL Calcium 8.1 L (8.4-10.2) mg/dL Total Protein 5.4 L (6.3-8.2) g/dL Albumin 3.0 L (3.5-5.0) g/dL Microbiology - Last 24 Hours (Table) 09/19/16 11:35 Urine Culture - Final Urine,Clean Catch Assessment and Plan Plan: Assessment: #1. Nonoliguric acute kidney injury secondary to an secondary to hemodynamic instability and acute CT. Patient also received contrast dye from cardiac catheterization in September 15. Creatinine peaked at 2 and is 1.5 today. #2. Chronic kidney disease stage III secondary to diabetic kidney disease with baseline creatinine near 1.5. #3. Metabolic acidosis secondary to acute kidney injury. Improving. #4. Volume overload. Improved. #5. Coronary artery disease status post cardiac catheterization and emergent CABG on September 15. #6. Hyperkalemia related to acute kidney injury and use of lactated Ringer's. Resolved. #7. Hypernatremia secondary to lack of oral water intake. Resolved. #8. Postoperative anemia. Hemoglobin stable. #9. Afib with RVR on amiodarone drip. Plan: Remains off IVFs. Lasix 20 mg IV today. Encourage oral intake. Avoid nephrotoxic agents and hypotensive episodes. Low-dose ACEI added 09/20/16. Continue to monitor renal function and urine output. Repeat electrolytes in the morning.
[2016-09-21 11:37] LABS: Glucose,Whole Blood 198 mg/dL (75-99)
[2016-09-21] MEDS: CHOLECALCIFEROL 1,000 UNIT TAB PO SCH (12:35)
[2016-09-21 13:48] VITALS: RESP 18
--- NOTE | 2016-09-21 13:55 | PN ---
DATE OF SERVICE: 09/21/2016 He has been hemodynamically stable. He continues to have shortness of breath and has some difficulty eating when he is lying down. On physical examination, his blood pressure is 103/56, respiratory rate 20, pulse rate of 141, temperature 97.8, O2 sat on 3 L by nasal cannula is 97%. HEENT reveals no new changes. Chest reveals decreased breath sounds at bases. Cardiovascular system reveals an S1, S2. Abdomen is soft. There is 1+ pedal edema. IMPRESSION: 1. Coronary artery disease, status post coronary artery bypass. 2. Bilateral pleural effusions with small effusions, IS is 1000 mL. At this point in time, continue incentive spirometry. Increase the patient's activity level. Keep the patient in negative fluid balance may help. Depending on how he does, we shall make further changes to his care. Agree with possible discharge planning to a rehab unit once he is stable.
[2016-09-21 16:49] LABS: Glucose,Whole Blood 130 mg/dL (75-99)
[2016-09-21] MEDS: SENNOSIDES-DOCUSATE SODIUM 1 EACH TAB PO SCH (19:46)
[2016-09-21 20:58] LABS: Glucose,Whole Blood 231 mg/dL (75-99)
--- NOTE | 2016-09-21 21:11 | PN ---
This patient went into an atrial fibrillation with RVR yesterday. IV amiodarone was started and this morning he converted to normal sinus rhythm. He is feeling better. Denies any shortness of breath. Patient's heart rate now is 73 per minute. Blood pressure is 113/62 mmHg. First and second heart sounds are normal. Lungs revealed a few scattered wheezes. Chest x-ray is suggestive of mild congestive heart failure. The patient has received 2 doses of Lasix and he is on oral amiodarone. Echocardiogram will be repeated today. Creatinine is 1.5. If patient has recurrent episodes of atrial fibrillation, patient would be considered for anticoagulation.
[2016-09-21] MEDS: INSULIN DETEMIR 100 UNIT/ML 10 ML VIAL SQ SCH (21:26)
[2016-09-22 01:51] LABS: Glucose,Whole Blood 139 mg/dL (75-99)
[2016-09-22] MEDS: HYDROcodone/APAP 5-325MG 1 EACH TAB PO PRN ×3 (01:57→21:42)
[2016-09-22 05:59] LABS: Glucose,Whole Blood 89 mg/dL (75-99)
[2016-09-22] MEDS: INSULIN LISPRO (humaLOG) 300 UNIT/3 ML VIAL SQ SCH ×4 (06:43→21:48)
[2016-09-22] MEDS: PANTOPRAZOLE 40 MG TABLET PO SCH (06:44)
--- NOTE | 2016-09-22 07:09 | XR ---
EXAMINATION TYPE: XR chest 2V DATE OF EXAM: 09/22/2016 HISTORY: cardiac surgery, post chest tube removal. REFERENCE: Previous study dated 09/21/2016. FINDINGS: There has been a midline sternotomy. The heart is enlarged. There is bibasilar atelectasis, worse on the left than the right. Overall aeration on the right has i mproved. There are small, bilateral effusions. IMPRESSION: 1. CARDIOMEGALY. 2. BIBASILAR ATELECTASIS. 3. SMALL, BILATERAL EFFUSIONS.
[2016-09-22] MEDS: ASPIRIN 325 MG TAB PO SCH (08:11)
[2016-09-22] MEDS: MUPIROCIN 2% OINT 22 GM TUBE NASAL SCH ×2 (08:11→21:48)
[2016-09-22] MEDS: ATORVASTATIN 40 MG TAB PO SCH (08:11)
[2016-09-22] MEDS: LISINOPRIL 2.5 MG TAB PO SCH (08:11)
[2016-09-22] MEDS: HEPARIN SODIUM,PORCINE 5,000 UNIT/ML 1 ML VIAL SQ SCH ×3 (08:11→23:02)
[2016-09-22] MEDS: AMIODARONE 200 MG TAB PO SCH ×2 (08:11→21:44)
[2016-09-22] MEDS: CLOPIDOGREL 75 MG TAB PO SCH (08:11)
[2016-09-22] MEDS: METOPROLOL TARTRATE 25 MG TAB PO SCH ×3 (08:11→21:44)
[2016-09-22] MEDS: BUDESONIDE 0.5 MG/2 ML NEBU INHALATION SCH ×2 (08:26→21:55)
[2016-09-22 08:53] LABS: Basophils % (A) 0 %; CH 28.6; CHCM 31.8; Eosinophils # (A) 0.3 k/uL (0-0.7); Eosinophils % (A) 3 %; HCT 28.2 % (39.0-53.0); HDW 3.18; Hypochromasia Slight; Luc % (Auto) 2; Lymphocytes # (A) 1.4 k/uL (1.0-4.8); Lymphocytes % (A) 13 %; MCV 90.7 fL (80.0-100.0); Mean Platelet Volume 8.6; Monocytes # (A) 0.7 k/uL (0-1.0); Monocytes % (A) 7 %; Neutrophils # (A) 8.2 k/uL (1.3-7.7); Neutrophils % (A) 76 %; RBC 3.11 m/uL (4.30-5.90); WBC 10.8 k/uL (3.8-10.6); WBC (Perox) 10.92
[2016-09-22 09:11] LABS: Calcium 8.2 mg/dL (8.4-10.2); Potassium 4.7 mmol/L (3.5-5.1); Total Bilirubin 0.6 mg/dL (0.2-1.3); Total Protein 5.8 g/dL (6.3-8.2)
--- NOTE | 2016-09-22 09:36 | ECHOF ---
Referral Reason:limited study assess lvf MEASUREMENTS -------- HEIGHT: 162.6 cm WEIGHT: 84.4 kg BP: 113/62 FINDINGS -------- Sinus rhythm. This was a technically good study. Limited Study TDS due to CABG and Bandages. Overall left ventricular systolic function is low-normal with, an EF between 50 - 55 %. CONCLUSIONS -------- 1. Sinus rhythm. 2. This was a technically good study. 3. Limited Study 4. TDS due to CABG and Bandages. 5. Overall left ventricular systolic function is low-normal with, an EF between 50 - 55 %. DIRECTOR: Aris Vargas RDCS
--- NOTE | 2016-09-22 09:47 | P.PN ---
Subjective Patient is seen in follow-up for acute kidney injury on chronic kidney disease. Patient has chronic kidney disease stage III secondary to diabetic kidney disease with baseline creatinine near 1.5. Creatinine peaked at 2 and is 1.77 today. Patient presented with dyspnea and flash pulmonary edema. Patient underwent a cardiac catheterization on September 16 which revealed triple-vessel disease and subsequently underwent emergent CABG on September 16. He was extubated on September 16. Balloon pump has been removed and Primacor drip has been discontinued as well. He is nonoliguric. Oral intake has improved. Hemodynamically stable. He has been transferred out of the intensive care unit. No active complaints at this time. Did develop Afib with rvr and is on oral amiodarone. Heart rate controlled. Vital signs are stable. General: The patient appeared well nourished and normally developed. Intubated. HEENT: Head exam is unremarkable. Neck is without jugular venous distension. LUNGS: Scattered rhonchi. Breath sounds decreased. HEART: Rate and Rhythm are regular. First and second heart sounds normal. No murmurs, rubs or gallops. ABDOMEN: Abdominal exam reveals normal bowel sounds. Non-tender and non- distended. No evidence of peritonitis. EXTREMITITES: No clubbing, cyanosis, or edema. Objective - Vital Signs Vital signs: Vital Signs Temp 98.8 F 09/22/16 08:00 Pulse 80 09/22/16 08:00 Resp 18 09/22/16 08:00 BP 126/59 09/22/16 08:00 Pulse Ox 94 L 09/22/16 08:00 Intake & Output 09/21/16 09/22/16 09/22/16 18:59 06:59 18:59 Intake Total 409.614 Output Total 950 850 Balance -540.386 -850 Weight 83.6 kg Intake: IV 160 saline 160 Intake, IV Titration 249.614 Amount Amiodarone 450 mg In 132.614 Dextrose 5% in Water 250 ml @ 1 MG/MIN 34.53 mls/ hr IV .Q7H31M [facility] Rx#: [id number] Dextrose 5% in Water 100 117 ml @ 618 mls/hr IV .Q10M [facility] with Amiodarone 150 mg Rx#:[id number] Output: Urine 950 850 Other: Voiding Method Urinal Urinal Urinal # Voids 1 ABP, PAP, CO, CI - Last Documented Arterial Blood Pressure 109/52 Pulmonary Artery Pressure 38/22 Cardiac Output 5.6 Cardiac Index 2.9 - Labs CBC & Chem 7: 09/22/16 08:25 09/22/16 08:25 Labs: Abnormal Lab Results - Last 24 Hours (Table) 09/21/16 09/21/16 09/21/16 Range/Units 11:36 16:33 20:56 WBC (3.8-10.6) k/uL RBC (4.30-5.90) m/uL Hgb (13.0-17.5) gm/dL Hct (39.0-53.0) % Neutrophils # (1.3-7.7) k/uL Chloride (98-107) mmol/L Carbon Dioxide (22-30) mmol/L BUN (9-20) mg/dL Creatinine (0.66-1.25) mg/dL Glucose (74-99) mg/dL POC Glucose (mg/dL) 198 H 130 H 231 H (75-99) mg/dL Calcium (8.4-10.2) mg/dL Total Protein (6.3-8.2) g/dL Albumin (3.5-5.0) g/dL 09/22/16 09/22/16 09/22/16 Range/Units 01:49 08:25 08:25 WBC 10.8 H (3.8-10.6) k/uL RBC 3.11 L (4.30-5.90) m/uL Hgb 9.0 L (13.0-17.5) gm/dL Hct 28.2 L (39.0-53.0) % Neutrophils # 8.2 H (1.3-7.7) k/uL Chloride 109 H (98-107) mmol/L Carbon Dioxide 18 L (22-30) mmol/L BUN 39 H (9-20) mg/dL Creatinine 1.77 H (0.66-1.25) mg/dL Glucose 162 H (74-99) mg/dL POC Glucose (mg/dL) 139 H (75-99) mg/dL Calcium 8.2 L (8.4-10.2) mg/dL Total Protein 5.8 L (6.3-8.2) g/dL Albumin 3.2 L (3.5-5.0) g/dL Assessment and Plan Plan: Assessment: #1. Nonoliguric acute kidney injury secondary to an secondary to hemodynamic instability and acute [place]. Patient also received contrast dye from cardiac catheterization in September 15. Creatinine peaked at 2 and is 1.7 today. #2. Chronic kidney disease stage III secondary to diabetic kidney disease with baseline creatinine near 1.5. #3. Metabolic acidosis secondary to acute kidney injury. Improving. #4. Volume overload. Improved. #5. Coronary artery disease status post cardiac catheterization and emergent CABG on September 15. #6. Hyperkalemia related to acute kidney injury and use of lactated Ringer's. Resolved. #7. Hypernatremia secondary to lack of oral water intake. Resolved. #8. Postoperative anemia. Hemoglobin stable. #9. Afib with RVR on oral amiodarone. Plan: Remains off IVFs. Encourage oral intake. Avoid nephrotoxic agents and hypotensive episodes. Low-dose ACEI added 09/20/16. Continue to monitor renal function and urine output. Repeat electrolytes in the morning. Lasix 40 mg PRN swelling.
--- NOTE | 2016-09-22 10:29 | P.PN ---
Progress Note - Text CV Surgery Nursing Principal diagnosis: Non-STEMI, triple vessel coronary artery disease with left main disease requiring preoperative placement of intra-aortic balloon pump, flash pulmonary edema, moderate to severe left ventricular dysfunction. History of hypertension , hyperlipidemia, COPD, CVA, left carotid occlusion, type 2 diabetes, SVT, chronic kidney disease stage III, and current tobacco dependence. Calcified ascending aorta. POD #7 emergent quadruple coronary artery bypass grafting using the left internal mammary artery to the intra-myocardial left anterior descending artery , reverse saphenous vein graft connected to the aorta using the PAS-Port device and connected distally to the right coronary artery after local endarterectomy, reverse saphenous vein graft connected to the aorta using the PAS-Port device and anastomosed sequentially to the second obtuse marginal artery in a side-to- side fashion then the third obtuse marginal artery in an end to side fashion. Endoscopic harvesting of the left greater saphenous vein. Intraoperative transesophageal echocardiogram and epi-aortic scanning. Intraoperative graft flow measurements using the Medistim system. Acute postoperative hypoxic respiratory failure requiring mechanical ventilation , an expected outcome of surgical procedure. Patient awake and alert, no distress noted, no specific complaints. He is sitting up to the bedside chair. Vital Signs: Afebrile Vital Signs - 24 hr 09/21/16 09/21/16 09/21/16 12:00 16:00 17:04 Temperature 97.0 F L 97.1 F L Pulse Rate Pulse Rate [ 75 73 Pulse Oximetery ] Respiratory 18 18 Rate Blood Pressure [Left Arm Sitting] Blood Pressure 128/64 113/62 [Right Arm] O2 Sat by Pulse 98 95 95 Oximetry 09/21/16 09/21/16 09/21/16 20:00 20:42 20:59 Temperature 97 F L Pulse Rate 84 84 Pulse Rate [ 69 Pulse Oximetery ] Respiratory 18 Rate Blood Pressure 117/67 [Left Arm Sitting] Blood Pressure [Right Arm] O2 Sat by Pulse 96 Oximetry 09/22/16 09/22/16 00:00 04:00 Temperature 97.1 F L 97.2 F L Pulse Rate Pulse Rate [ 73 68 Pulse Oximetery ] Respiratory 18 18 Rate Blood Pressure 111/59 105/63 [Left Arm Sitting] Blood Pressure [Right Arm] O2 Sat by Pulse 95 95 Oximetry Labs: Short CBC 09/22/16 Range/Units 08:25 WBC 10.8 H (3.8-10.6) k/uL Hgb 9.0 L (13.0-17.5) gm/dL Hct 28.2 L (39.0-53.0) % Plt Count 233 (150-450) k/uL Neutrophils # 8.2 H (1.3-7.7) k/uL Lungs: Scattered crackles to his bilateral bases, essentially clear to his upper lobes. Respirations are symmetrical and unlabored. Patient does have a productive cough with yellow tenacious sputum. O2 sat: 93% on room air. I/S: 1000 mL, reviewed with the patient important of using his incentive spirometry every hour while awake. Patient did give a good return demonstration on his incentive spirometry. Heart: S1S2, regular rhythm and rate, negative for S3, gallop or murmur. Remote telemetry showing normal sinus rhythm heart rate 78. No further episodes of atrial fibrillation. Sternum stable, chest incision clean with gauze dressing clean and dry. No drainage noted. Left leg incisions clean dry and well approximated. No drainage noted. Knee-high TRINA hose and sequential compression devices in place to his bilateral lower extremities. Abdomen: Soft, nontender. Positive bowel sounds present in all 4 quadrants. Patient reports she had a bowel movement last p.m. CBGs: 89-231 mg/dL last 24 hours. U/O: Adequate, 575 mL output in the last 8 hours. 24 hr Total: Intake & Output 09/20/16 09/21/16 09/22/16 09/23/16 06:59 06:59 06:59 06:59 Intake Total 134 249.74 409.614 Output Total 4386 281 6559 Balance -1726 -440.26 -1390.386 Weight 90 kg 84.8 kg 83.6 kg Active Medications Hydrocodone Bitart/Acetaminophen ([place] 5-325) 2 each PO Q4HR PRN PRN Reason: Severe Pain Last Admin: 09/22/16 01:57 Dose: 2 each Hydrocodone Bitart/Acetaminophen ([place] 5-325) 1 each PO Q4HR PRN PRN Reason: Moderate Pain Last Admin: 09/21/16 21:31 Dose: 1 each Albuterol/Ipratropium (Duoneb 0.5 Mg-3 Mg/3 Ml Soln) 3 ml INHALATION RT-Q2H PRN PRN Reason: Shortness Of Breath Or Wheezing Last Admin: 09/21/16 20:41 Dose: 3 ml Alprazolam (Xanax) 0.25 mg PO BID PRN PRN Reason: Anxiety Last Admin: 09/21/16 21:31 Dose: 0.25 mg Amiodarone HCl (Cordarone) 400 mg PO BID [facility] Last Admin: 09/22/16 08:11 Dose: 400 mg Aspirin (Aspirin) 325 mg PO DAILY [facility] Last Admin: 09/22/16 08:11 Dose: 325 mg Atorvastatin Calcium (Lipitor) 40 mg PO DAILY [facility] Last Admin: 09/22/16 08:11 Dose: 40 mg Benzocaine/Menthol (Cepacol Lozenge) 1 each MUCOUS MEM Q2H PRN PRN Reason: Sore Throat Bisacodyl (Dulcolax) 10 mg RECTAL DAILY PRN PRN Reason: Constipation Budesonide (Pulmicort) 0.5 mg INHALATION RT-BID [facility] Last Admin: 09/22/16 08:26 Dose: Not Given Cholecalciferol (Vitamin D3) 1,000 unit PO DAILY@1200 [facility] Last Admin: 09/21/16 12:35 Dose: 1,000 unit Clopidogrel Bisulfate (Plavix) 75 mg PO DAILY [facility] Last Admin: 09/22/16 08:11 Dose: 75 mg Heparin Sodium (Porcine) (Heparin) 5,000 unit SQ Q8HR [facility] Last Admin: 09/22/16 08:11 Dose: 5,000 unit Insulin Detemir (Levemir) 27 unit SQ HS [facility] Last Admin: 09/21/16 21:26 Dose: 27 unit Insulin Human Lispro (Humalog) 0 unit SQ ACHS [facility] PRN Reason: Protocol Last Admin: 09/22/16 06:43 Dose: Not Given Lisinopril (Zestril) 2.5 mg PO DAILY [facility] Last Admin: 09/22/16 08:11 Dose: 2.5 mg Magnesium Hydroxide (Milk Of Magnesia) 2,400 mg PO BID PRN PRN Reason: Constipation Metoprolol Tartrate (Lopressor) 25 mg PO TID [facility] Last Admin: 09/22/16 08:11 Dose: 25 mg Miscellaneous Information (Magnesium Per Protocol) 1 each MISCELLANE DAILY PRN ; Protocol PRN Reason: Per Protocol Miscellaneous Information (Phosphorus Per Protocol) 1 each MISCELLANE DAILY PRN ; Protocol PRN Reason: Per Protocol Miscellaneous Information (Potassium Per Protocol) 1 each MISCELLANE DAILY PRN ; Protocol PRN Reason: Per Protocol Mupirocin (Bactroban Oint) 1 applic NASAL BID [facility] Last Admin: 09/22/16 08:11 Dose: 1 applic Ondansetron HCl (Zofran) 4 mg IVP Q6HR PRN PRN Reason: Nausea And Vomiting Pantoprazole Sodium (Protonix) 40 mg PO AC-BRKFST [facility] Last Admin: 09/22/16 06:44 Dose: 40 mg Senna/Docusate Sodium (Senokot-S) 2 each PO HS [facility] Last Admin: 09/21/16 19:46 Dose: 2 each Sodium Chloride (Saline Flush) 10 ml IV Q12HR [facility] Last Admin: 09/22/16 08:11 Dose: 10 ml Plan: 1. Continue aspirin, plavix, statin, heparin subcu, lopressor and MATTY inhibitor. 2. Wean oxygen as tolerated. Encourage incentive spirometer. Continue pulmicort. 3. Continue oral amiodarone 400 mg by mouth twice a day. 4. We will start Lasix 40 mg by mouth daily. 5. Monitor daily labs, chest x-rays. 6. Increase activity as tolerated, ambulate in hallway. Dr. Ashby on consult for rehabilitation recommendations, pending rehab placement. 7. Avoid nephrotoxins. Clinical Nurse Manager on consult. 8. Diabetic management per primary care service. Episodes of hypoglycemia again overnight, may need to adjust long-acting insulin further. 9. GI/DVT prophylaxis. 10. More recommendations as patient progresses. Discharge planning in place, possible discharge to rehab in the a.m.
--- NOTE | 2016-09-22 10:30 | CDI ---
In responding to this query, please exercise your independent professional judgment. The [facility] Coding Staff and Clinical Documentation Specialists appreciate your assistance in clarifying documentation, maintaining compliance with coding guidelines, accurately documenting patients condition and capturing severity of illness. The fact that a question is asked does not imply that any particular answer is desired or expected. Communication forms are a method of clarifying documentation and are not made part of the Legal Health Record. Thank you in advance for your clarification. Last Revision, January 2015 [address]igio [address] [place] [address] Documentation Clarification Form Date: 09/22/2016 10:19:00 AM From: Eden Stubbs CCS, CCDS Admit Date: 09/15/2016 4:06:00 AM Patient Name: Chema Cerna Visit Number: [id number] Discharge Date: Dr. Shiv Lester: A diagnosis of anemia lacks specificity to accurately reflect your patients severity of condition and clarification is needed. Patient history/risk factors: 60 yo male, status post CABG for CAD, also has CKD stage III. Clinical Indicators: Hemoglobin: Preop Hgb: 15.3, Postop Hgb 8.2 Hematocrit: Preop Hct: 48.4, Postop Hct 25.6 Treatment: Received two units Platelets preoperatively, IV fluids, daily CBC In order to capture the severity of condition, please clarify the type of anemia and etiology if known: Acute blood loss anemia o Expected outcome of surgery o Unexpected outcome of surgery Acute on chronic blood loss anemia o Expected outcome of surgery o Unexpected outcome of surgery Chronic blood loss anemia Iron deficiency anemia Hemolytic anemia Drug induced anemia Anemia of chronic kidney disease Unable to determine Other, please specify Please document in your progress notes and discharge summary in order to capture severity of illness and risk of mortality. Include clinical findings that support your diagnosis. FYI: Press F11 to launch patient chart. Place X here if this finding has no clinical significance, is not applicable or if you are not able to provide any additional documentation. Thank You. SWAPNIL
[2016-09-22] MEDS ORDERED: FUROSEMIDE 40 MG TAB PO SCH (10:45)
[2016-09-22 11:39] LABS: Glucose,Whole Blood 120 mg/dL (75-99)
--- NOTE | 2016-09-22 12:29 | P.PN ---
Subjective 61-year-old male one of my office patient of known for long time with past medical history of CVA, PAD, CAD, COPD, chronic smoking, diabetes, chronic neuropathy and stage III kidney disease who was the hospital last in September 2015 for CVA. Patient has been doing well his blood sugar has been slightly elevated. Patient went to sleep was feeling well he woke up around 2:00 after midnight gasping for air having significant shortness of breath with mild tightness and pressure with mild cold sweat than slight wheezes and cough. Patient ended up coming to the emergency department at [facility] where was seen and evaluated surprisingly his chest x-ray showed sign of pulmonary edema first EKGs shows slight T waves inversion second EKG had mild change as well and his troponin continued to be mildly elevated. Patient was diagnosed with acute pulmonary edema secondary to congestive heart failure and possible from acute currently syndrome. Patient risk factor of having coronary artery disease extremely high at the time. Patient will be seen cardiology and possible need for an intervention with heart catheter. His chronic kidney disease with the current creatinine is quite bit elevated will involve nephrology diuresis patient and add Nitrol hopefully patient be more stable at this point and I hope creatinine will improve enough to allow him to go for heart catheter when he is ready. 09/16: The patient had worsening dyspnea and flash pulmonary edema. He underwent a cardiac catheterization which revealed more than 90% diffuse left main stenosis with moderate stenosis of the right coronary artery with some collaterals through the septals to the left system. He underwent an emergent CABG and required placement of a intra aortic balloon pump, this was placed by Dr. Cowan in the laborer salvage. 2-D echo shows ejection fraction of 30% with no significant valvular abnormality. He is currently intubated and and is is on levophed and a primacor drip. He is also being followed by nephrology for his chronic kidney disease stage III. BUN 41, creatinine 1.78. Last chest x-ray showed vascular congestion and mild edema left basilar airspace disease, improving postoperative changes. The patient is also being followed by pulmonology. 09/17: The patient was extubated yesterday he did have some respiratory distress overnight and required placement of a BiPAP. Right femoral intra-aortic balloon pump was also removed yesterday he was weaned off levophed in Primacor drip was also turned off. Repeat chest x-ray showed postsurgical change worsening bibasilar airspace disease, small bilateral effusions, and worsening subcutaneous emphysema on the left. The patient continues to be followed by pulmonology. Kidney function slightly improved from yesterday BUN 34 creatinine 1.9. 09/18: The patient was evaluated today he was sitting up in the chair eating breakfast. The patient is off BiPAP and remains on nasal cannula. BUN/ creatinine remain elevated, but again have improved since yesterday nightly 39, creatinine 1.7. PT/OT was consulted. The patient will be encouraged to get out of bed and start to ambulate. chest x-ray shows persisting cardiomegaly with moderate central vascular congestion and bibasilar infiltrate or atelectasis and likely small bilateral pleural effusions. Left chest tube and two mediastinal drain catheters remain present. 09/19/2016: Patient is feeling a bit better today, he continues to have some pain in the on and off, he is having a burning sensation in the left lower x-ray , his pacer wire were removed, and the patient will be transferred to [facility] care. 09/20/2016: Patient was transferred out of the intensive care unit yesterday he is sitting up in chair, continue to have some soreness in his left lower extremity, he is using incentive spirometer, patient did have an episode of hypoglycemia, subsequently we'll decrease his Levemir to 32 units subcutaneously at bedtime along with sliding scale insulin. Patient did receive apple juice after his blood glucose level was checked at the bedside at 51. 09/21: Blood sugars are running 89-231 after changes made yesterday to insulin. Chest x-ray shows cardiomegaly, bibasilar atelectasis and small bilateral effusions. Patient went into atrial fibrillation with RVR and started on amiodarone IV and digoxin and subsequently converted to normal sinus rhythm. He is now on oral amiodarone. Repeat echocardiogram was ordered and report is pending. Patient is planned for inpatient rehab at [facility] tomorrow. Patient denies any complaints at this time. Objective - Vital Signs Vital signs: Vital Signs Temp 97.2 F L 09/22/16 04:00 Pulse 68 09/22/16 04:00 Resp 18 09/22/16 04:00 BP 105/63 09/22/16 04:00 Pulse Ox 95 09/22/16 04:00 Intake & Output 09/21/16 09/22/16 09/22/16 18:59 06:59 18:59 Intake Total 409.614 Output Total 950 850 Balance -540.386 -850 Weight 83.6 kg Intake: IV 160 saline 160 Intake, IV Titration 249.614 Amount Amiodarone 450 mg In 132.614 Dextrose 5% in Water 250 ml @ 1 MG/MIN 34.53 mls/ hr IV .Q7H31M [facility] Rx#: [id number] Dextrose 5% in Water 100 117 ml @ 618 mls/hr IV .Q10M ONE with Amiodarone 150 mg Rx#:[id number] Output: Urine 950 850 Other: Voiding Method Urinal Urinal # Voids 1 ABP, PAP, CO, CI - Last Documented Arterial Blood Pressure 109/52 Pulmonary Artery Pressure 38/22 Cardiac Output 5.6 Cardiac Index 2.9 - Exam General appearance: no average body habitus, cooperative, disheveled, no mild distress, no morbidly obese, no acute distress, no obese, no severe distress, no thin - EENT Eyes: abnormal pupil, no anicteric sclerae, no disc margins sharp, no edentulous , no EOMI, no PERRLA, no fundus normal, no photophobia, no dentition normal, no poor dentition, no ptosis, no scleral icterus, normal appearance ENT: hard of hearing, no hearing grossly normal, no NA/AT, normal oropharynx, no other, no pharyngeal erythema, no thrush, no tonsillar exudates, no tonsillar swelling Ears: bilateral: normal - Neck Neck: no lymphadenopathy, normal ROM, no other, no rigidity, no stridor, no thyromegaly Carotids: bilateral: upstroke normal Thyroid: bilateral: normal size - Respiratory Respiratory: bilateral: diminished, dullness, rales, rhonchi, wheezing - Cardiovascular Rhythm: regular Heart sounds: normal: S1, S2 Abnormal Heart Sounds: systolic murmur, S3 Gallop - Gastrointestinal General gastrointestinal: no absent bowel sounds, decreased bowel sounds, no distended, no hepatomegaly, no hyperactive bowel sounds, normal bowel sounds, no organomegaly, no rigid, no scaphoid, soft, no splenomegaly, no tenderness, no umbilical hernia, no ventral hernia - Integumentary Integumentary: no calor, no cellulitis, no cyanotic, no decreased turgor, no flushed, no jaundiced, normal, no normal turgor, pale, rash, no ulcer - Neurologic Neurologic: CNII-XII intact - Musculoskeletal Musculoskeletal: no gait normal, generalized weakness, no strength equal bilaterally, no right sided weakness, no left sided weakness - Psychiatric Psychiatric: A&O x's 3, no appropriate affect, no intact judgment & insight - Labs CBC & Chem 7: 09/22/16 08:25 09/22/16 08:25 Labs: Abnormal Lab Results - Last 24 Hours (Table) 09/21/16 09/21/16 09/21/16 Range/Units 11:36 16:33 20:56 POC Glucose (mg/dL) 198 H 130 H 231 H (75-99) mg/dL 09/22/16 Range/Units 01:49 POC Glucose (mg/dL) 139 H (75-99) mg/dL Assessment and Plan Plan: 1 CABG secondary to acute coronary syndrome with mildly elevated troponin slight change in his EKG: patient underwent cardiac cath, required emergent CABG , patient is doing better today his pacer wire were removed, and he would be transferred to selective care. 2 non-STEMI with left main disease: Patient underwent emergent CABG . Continue to monitor the patient very closely. 3 acute respiratory failure status post CABG surgery. Continue nebulized treatment, continue patient on incentive spirometer, early ambulation. 4 acute pulmonary edema: Status post furosemide, repeat chest x-ray 5 acute kidney injury secondary to hemodynamic instability and acute OR status post CABG: Continue to watch BUN and creatinine closely 6 Chronic kidney disease stage III: Patient followed by nephrology. We'll continue to monitor BUN and creatinine. 7 type 2 diabetes with episodic hypoglycemia. Decrease Levemir to 30 units at bedtime along with sliding scale insulin. Monitor the patient very closely for hypoglycemia. 8 COPD: Continue patient on O2, DuoNeb and Pulmicort, pulmonary is consulted 9 hyperlipidemia: Continue Lipitor 40 mg a day. 10 BPH: Continue to watch for any urinary retention. 11 chronic tobacco use and dependency. 12 history of CVA: Still with slight residual. 13 hypertension: continue metoprolol 14. GI prophylaxis: Continue patient on pantoprazole 40 mg daily. 15. DVT prophylaxis: Patient be on heparin 5000 units continues twice a day. 16. Atrial fibrillation with RVR, paroxysmal atrial fibrillation. Patient converted to normal sinus rhythm. IV amiodarone and digoxin was given. Patient is now on oral amiodarone. Repeat echocardiogram has been done CODE STATUS: Full code. Discharge plan: Inpatient Rehab tomorrow Impression and plan of care have been directed as dictated by the signing physician. Lizeth Perea nurse practitioner acting as scribe for signing physician.
[2016-09-22] MEDS: CHOLECALCIFEROL 1,000 UNIT TAB PO SCH (13:17)
--- NOTE | 2016-09-22 15:36 | P.PN ---
Subjective Principal diagnosis: Non-STEMI This is a 60-year-old gentleman who presented to the hospital with a non-ST elevation myocardial infarction. He underwent coronary artery bypass grafting surgery, feeling overall much better today. Being followed on the telemetry unit. Repeat echocardiogram with Doppler study showed an LV function of 50-55%. Objective - Vital Signs Vital signs: Vital Signs Temp 97.9 F 09/22/16 12:00 Pulse 82 09/22/16 12:00 Resp 18 09/22/16 12:00 BP 130/66 09/22/16 12:00 Pulse Ox 93 L 09/22/16 12:00 Intake & Output 09/21/16 09/22/16 09/22/16 18:59 06:59 18:59 Intake Total 409.614 200 Output Total 950 850 500 Balance -540.386 -850 -300 Weight 83.6 kg Intake: IV 160 saline 160 Intake, IV Titration 249.614 Amount Amiodarone 450 mg In 132.614 Dextrose 5% in Water 250 ml @ 1 MG/MIN 34.53 mls/ hr IV .Q7H31M [facility] Rx#: [id number] Dextrose 5% in Water 100 117 ml @ 618 mls/hr IV .Q10M ONE with Amiodarone 150 mg Rx#:[id number] Oral 200 Output: Urine 950 850 500 Other: Voiding Method Urinal Urinal Urinal # Voids 1 2 ABP, PAP, CO, CI - Last Documented Arterial Blood Pressure 109/52 Pulmonary Artery Pressure 38/22 Cardiac Output 5.6 Cardiac Index 2.9 - Exam PHYSICAL EXAMINATION: HEENT: Head is atraumatic, normocephalic. Pupils equal, round. Neck is supple. There is no elevated jugular venous pressure. HEART EXAMINATION: Heart S1, S2 normal. No murmur or gallop heard. CHEST EXAMINATION: Circumflex clear with diminished air entry to bilateral bases. ABDOMEN: Soft, nontender. Bowel sounds are heard. No organomegaly noted. EXTREMITIES: 2+ peripheral pulses with evidence of peripheral edema and no calf tenderness noted. Bilateral TRINA hose in place. NEUROLOGIC patient is awake, alert and oriented -3. . - Labs CBC & Chem 7: 09/22/16 08:25 09/22/16 08:25 Labs: Abnormal Lab Results - Last 24 Hours (Table) 09/21/16 09/21/16 09/22/16 Range/Units 16:33 20:56 01:49 WBC (3.8-10.6) k/uL RBC (4.30-5.90) m/uL Hgb (13.0-17.5) gm/dL Hct (39.0-53.0) % Neutrophils # (1.3-7.7) k/uL Chloride (98-107) mmol/L Carbon Dioxide (22-30) mmol/L BUN (9-20) mg/dL Creatinine (0.66-1.25) mg/dL Glucose (74-99) mg/dL POC Glucose (mg/dL) 130 H 231 H 139 H (75-99) mg/dL Calcium (8.4-10.2) mg/dL Total Protein (6.3-8.2) g/dL Albumin (3.5-5.0) g/dL 09/22/16 09/22/16 09/22/16 Range/Units 08:25 08:25 11:36 WBC 10.8 H (3.8-10.6) k/uL RBC 3.11 L (4.30-5.90) m/uL Hgb 9.0 L (13.0-17.5) gm/dL Hct 28.2 L (39.0-53.0) % Neutrophils # 8.2 H (1.3-7.7) k/uL Chloride 109 H (98-107) mmol/L Carbon Dioxide 18 L (22-30) mmol/L BUN 39 H (9-20) mg/dL Creatinine 1.77 H (0.66-1.25) mg/dL Glucose 162 H (74-99) mg/dL POC Glucose (mg/dL) 120 H (75-99) mg/dL Calcium 8.2 L (8.4-10.2) mg/dL Total Protein 5.8 L (6.3-8.2) g/dL Albumin 3.2 L (3.5-5.0) g/dL Assessment and Plan Plan: Assessment and plan #1 non-ST elevation myocardial infarction, status post coronary bypass grafting surgery #2 hypertensive urgency #3 history of hypertension #4 congestive cardiac failure systolic acute on chronic #5 diabetes #6 hyperlipidemia #7 nicotine dependence #8 COPD #9 acute on chronic kidney disease #10 prior TIA #11 abnormal liver enzymes likely secondary to congestion Plan . Echo cardiac exam with Doppler study revealed an ejection fraction of 50-55% . Patient was again encouraged on the use of his incentive spirometry. Remaining in normal sinus rhythm today, creatinine 1.7. DNP note has been reviewed, I agree with a documented findings and plan of care. Patient was seen and examined.
[2016-09-22 16:55] LABS: Glucose,Whole Blood 181 mg/dL (75-99)
--- NOTE | 2016-09-22 19:44 | PN ---
DATE OF SERVICE: 09/22/2016 This patient is less short of breath. His IS is almost up to 1500. On room air his oxygen saturation is 94%. On physical examination, his blood pressure is 126/59, respiratory rate of 18, pulse of 80, temperature 98.8. HEENT reveals pupils that are equal. Chest reveals scattered crackles in the base with some decreased breath sounds in the bases. Cardiovascular system reveals an S1, S2. Abdomen is soft. There is trace pedal edema. I&O over the last 24 hours is minus 1.3 liters. IMPRESSION AT THIS TIME: 1. Cardiomyopathy with congestive heart failure. 2. Coronary artery disease, status post coronary artery bypass. 3. Atrial fibrillation with rapid ventricular response. 4. Small pleural effusions with atelectatic changes in the bases, for which we would recommend incentive spirometry, increasing his activity level, keeping him in negative fluid balance. Discharge planning, possibly to a rehab unit, may help. He was counseled regarding his condition. Continue him on his other medications, which were reviewed. SWAPNIL
[2016-09-22 21:00] LABS: Glucose,Whole Blood 215 mg/dL (75-99)
[2016-09-22] MEDS: ALPRAZolam 0.25 MG TAB PO PRN (21:42)
[2016-09-22] MEDS: INSULIN DETEMIR 100 UNIT/ML 10 ML VIAL SQ SCH (21:42)
[2016-09-22] MEDS: SENNOSIDES-DOCUSATE SODIUM 1 EACH TAB PO SCH (21:43)
[2016-09-23 02:12] LABS: Glucose,Whole Blood 134 mg/dL (75-99)
[2016-09-23] MEDS: HYDROcodone/APAP 5-325MG 1 EACH TAB PO PRN ×2 (05:03→09:16)
[2016-09-23 05:58] LABS: Glucose,Whole Blood 101 mg/dL (75-99)
[2016-09-23] MEDS: INSULIN LISPRO (humaLOG) 300 UNIT/3 ML VIAL SQ SCH ×2 (06:00→12:43)
[2016-09-23 06:07] LABS: Basophils % (A) 0 %; CH 28.4; CHCM 32.2; Eosinophils # (A) 0.3 k/uL (0-0.7); Eosinophils % (A) 2 %; HCT 28.8 % (39.0-53.0); HDW 3.39; HGB 9.1 gm/dL (13.0-17.5); Hypochromasia Slight; Luc # (Auto) 0.21; Luc % (Auto) 2; Lymphocytes # (A) 1.5 k/uL (1.0-4.8); Lymphocytes % (A) 14 %; MCHC 31.4 g/dL (31.0-37.0); Mean Platelet Volume 7.1; Monocytes # (A) 0.6 k/uL (0-1.0); Monocytes % (A) 5 %; Neutrophils # (A) 8.4 k/uL (1.3-7.7); Neutrophils % (A) 76 %; RBC 3.24 m/uL (4.30-5.90); RDW 14.1 % (11.5-15.5)
[2016-09-23] MEDS: PANTOPRAZOLE 40 MG TABLET PO SCH (06:07)
[2016-09-23 07:01] LABS: Calcium 8.4 mg/dL (8.4-10.2); Potassium 4.4 mmol/L (3.5-5.1); Total Bilirubin 0.4 mg/dL (0.2-1.3); Total Protein 5.7 g/dL (6.3-8.2)
--- NOTE | 2016-09-23 09:10 | P.PN ---
Subjective Patient is seen in follow-up for acute kidney injury on chronic kidney disease. Patient has chronic kidney disease stage III secondary to diabetic kidney disease with baseline creatinine near 1.5. Creatinine peaked at 2 and is 1.66 today. Patient presented with dyspnea and flash pulmonary edema. Patient underwent a cardiac catheterization on September 16 which revealed triple-vessel disease and subsequently underwent emergent CABG on September 16. He was extubated on September 16. Balloon pump has been removed and Primacor drip has been discontinued as well. He is nonoliguric. Oral intake has improved. Hemodynamically stable. He has been transferred out of the intensive care unit. No active complaints at this time. Did develop Afib with rvr and is on oral amiodarone. Heart rate controlled. He has been ambulating. Vital signs are stable. General: The patient appeared well nourished and normally developed. Intubated. HEENT: Head exam is unremarkable. Neck is without jugular venous distension. LUNGS: Scattered rhonchi. Breath sounds decreased. HEART: Rate and Rhythm are regular. First and second heart sounds normal. No murmurs, rubs or gallops. ABDOMEN: Abdominal exam reveals normal bowel sounds. Non-tender and non- distended. No evidence of peritonitis. EXTREMITITES: No clubbing, cyanosis, or edema. Objective - Vital Signs Vital signs: Vital Signs Temp 97.2 F L 09/23/16 04:00 Pulse 72 09/23/16 04:00 Resp 18 09/23/16 04:00 BP 131/65 09/23/16 04:00 Pulse Ox 95 09/23/16 04:00 Intake & Output 09/22/16 09/23/16 09/23/16 18:59 06:59 18:59 Intake Total 200 Output Total 500 225 Balance -300 -225 Weight 83.6 kg Intake: Oral 200 Output: Urine 500 225 Other: Voiding Method Urinal Urinal # Voids 2 1 ABP, PAP, CO, CI - Last Documented Arterial Blood Pressure 109/52 Pulmonary Artery Pressure 38/22 Cardiac Output 5.6 Cardiac Index 2.9 - Labs CBC & Chem 7: 09/23/16 05:43 09/23/16 05:43 Labs: Abnormal Lab Results - Last 24 Hours (Table) 09/22/16 09/22/16 09/22/16 Range/Units 08:25 11:36 16:41 WBC (3.8-10.6) k/uL RBC (4.30-5.90) m/uL Hgb (13.0-17.5) gm/dL Hct (39.0-53.0) % Neutrophils # (1.3-7.7) k/uL Chloride 109 H (98-107) mmol/L Carbon Dioxide 18 L (22-30) mmol/L BUN 39 H (9-20) mg/dL Creatinine 1.77 H (0.66-1.25) mg/dL Glucose 162 H (74-99) mg/dL POC Glucose (mg/dL) 120 H 181 H (75-99) mg/dL Calcium 8.2 L (8.4-10.2) mg/dL Total Protein 5.8 L (6.3-8.2) g/dL Albumin 3.2 L (3.5-5.0) g/dL 09/22/16 09/23/16 09/23/16 Range/Units 20:57 02:09 05:43 WBC 11.0 H (3.8-10.6) k/uL RBC 3.24 L (4.30-5.90) m/uL Hgb 9.1 L (13.0-17.5) gm/dL Hct 28.8 L (39.0-53.0) % Neutrophils # 8.4 H (1.3-7.7) k/uL Chloride (98-107) mmol/L Carbon Dioxide (22-30) mmol/L BUN (9-20) mg/dL Creatinine (0.66-1.25) mg/dL Glucose (74-99) mg/dL POC Glucose (mg/dL) 215 H 134 H (75-99) mg/dL Calcium (8.4-10.2) mg/dL Total Protein (6.3-8.2) g/dL Albumin (3.5-5.0) g/dL 09/23/16 09/23/16 Range/Units 05:43 05:55 WBC (3.8-10.6) k/uL RBC (4.30-5.90) m/uL Hgb (13.0-17.5) gm/dL Hct (39.0-53.0) % Neutrophils # (1.3-7.7) k/uL Chloride 111 H (98-107) mmol/L Carbon Dioxide 20 L (22-30) mmol/L BUN 35 H (9-20) mg/dL Creatinine 1.66 H (0.66-1.25) mg/dL Glucose (74-99) mg/dL POC Glucose (mg/dL) 101 H (75-99) mg/dL Calcium (8.4-10.2) mg/dL Total Protein 5.7 L (6.3-8.2) g/dL Albumin 3.2 L (3.5-5.0) g/dL Assessment and Plan Plan: Assessment: #1. Nonoliguric acute kidney injury secondary to an secondary to hemodynamic instability and acute AK. Patient also received contrast dye from cardiac catheterization in September 15. Creatinine peaked at 2 and is 1.66 today. #2. Chronic kidney disease stage III secondary to diabetic kidney disease with baseline creatinine near 1.5. #3. Metabolic acidosis secondary to acute kidney injury. Improving. #4. Volume overload. Improved. #5. Coronary artery disease status post cardiac catheterization and emergent CABG on September 15. #6. Hyperkalemia related to acute kidney injury and use of lactated Ringer's. Resolved. #7. Hypernatremia secondary to lack of oral water intake. Resolved. #8. Postoperative anemia. Hemoglobin stable. #9. Afib with RVR on oral amiodarone. Plan: Remains off IVFs. Encourage oral intake. Avoid nephrotoxic agents and hypotensive episodes. Low-dose ACEI added 09/20/16. Continue to monitor renal function and urine output. Repeat electrolytes in the morning. Lasix 40 mg daily PRN swelling. Add oral sodium bicarbonate supplementation. Potential discharge to inpatient rehab today.
[2016-09-23] MEDS ORDERED: SODIUM BICARBONATE TAB 650 MG TAB PO SCH (09:15)
[2016-09-23] MEDS: HEPARIN SODIUM,PORCINE 5,000 UNIT/ML 1 ML VIAL SQ SCH (09:16)
[2016-09-23] MEDS: AMIODARONE 200 MG TAB PO SCH (09:16)
[2016-09-23] MEDS: CLOPIDOGREL 75 MG TAB PO SCH (09:17)
[2016-09-23] MEDS: ATORVASTATIN 40 MG TAB PO SCH (09:17)
[2016-09-23] MEDS: LISINOPRIL 2.5 MG TAB PO SCH (09:17)
[2016-09-23] MEDS: MUPIROCIN 2% OINT 22 GM TUBE NASAL SCH (09:18)
[2016-09-23] MEDS: METOPROLOL TARTRATE 25 MG TAB PO SCH (09:18)
[2016-09-23] MEDS: ASPIRIN 325 MG TAB PO SCH (09:18)
[2016-09-23] MEDS: CHOLECALCIFEROL 1,000 UNIT TAB PO SCH (09:19)
[2016-09-23] MEDS: BUDESONIDE 0.5 MG/2 ML NEBU INHALATION SCH (10:52)
[2016-09-23] MEDS: IPRATROPIUM-ALBUTEROL 3 ML NEB INHALATION PRN (10:52)
--- NOTE | 2016-09-23 11:02 | P.DS ---
Providers Date of admission: 09/15/16 04:06 Attending physician: Ashok Hidalgo Consults: 09/15/16 04:44 Consult Physician Routine Consulting Provider: Mike Witt Consult Reason/Comments: CHF (new diagnosis) Do you want consulting provider notified?: Yes 09/15/16 08:56 Consult Physician Routine Consulting Provider: Alina Montenegro Consult Reason/Comments: CKD 3 Do you want consulting provider notified?: Yes 09/15/16 08:58 Consult Physician Routine Consulting Provider: Julián Quan Consult Reason/Comments: COPD Do you want consulting provider notified?: Yes 09/15/16 12:32 Consult Anesthesia Routine Consulting Provider: Anesthesia,Services Consult Reason/Comments: Cardiac Surgery Pre-Op Consult Physician Routine Consulting Provider: Cari Watkins Consult Reason/Comments: Medical Management Do you want consulting provider notified?: Yes 09/15/16 22:18 Consult Physician Routine Consulting Provider: Ashok Hidalgo Consult Reason/Comments: medical management Do you want consulting provider notified?: Already Contacted 09/17/16 09:01 Consult Physician Routine Consulting Provider: Dariusz Ashby Consult Reason/Comments: eval for inpatient rehab Do you want consulting provider notified?: Yes Primary care physician: Ashok [place] [facility] Course: FINAL DIAGNOSIS: 1.[ Non-ST elevation myocardial infarction this admission] 2.[ Triple vessel coronary artery disease with severe left main disease] 3.[ Moderate to severe systolic left ventricular dysfunction with a preoperative ejection fraction of 35%.] 4.[ Flash pulmonary edema] 5.[ Occluded left carotid artery with prior cerebrovascular accident in 2013 and TIA in September 2015] 6.[ Hypertension] 7.[ Hyperlipidemia] 8.[ Diabetes mellitus type 2] 9.[ Chronic obstructive pulmonary disease] 10.[ Chronic kidney disease stage III with baseline creatinine of 1.5] 11.[ Calcified ascending aorta] 12.[ Chronic nicotine dependence] 13.[ History of supraventricular tachycardia] 14.[ Postoperative paroxysmal atrial fibrillation] 15.[ Osteoarthritis] 16.[ Chronic neuropathy] 17.[ Benign prostatic hypertrophy] PRINCIPAL PROCEDURE: 1.[ Selective right and left coronary angiography.] 2.[ Insertion of intra-aortic balloon pump.] 3.[ Emergent quadruple coronary artery bypass grafting using the left internal mammary artery to the left intramyocardial left anterior descending coronary artery, a reverse greater saphenous vein graft connected to the aorta using the PAS-port device and connected distally to the right coronary artery after local endarterectomy, a reverse greater saphenous vein graft connected to the aorta using the PAS-port device and anastomosed sequentially to the second obtuse marginal coronary artery and a [id number] fashion and then the third obtuse marginal coronary artery in an end to side fashion.] 4.[ Endoscopic harvesting of the left greater saphenous vein.] 5.[ Intraoperative transesophageal echocardiogram and epi-aortic scanning.] 6.[ Intraoperative graft flow measurement using the medistim system] HISTORY OF PRESENT ILLNESS: [This is a 60-year-old gentleman who is followed by Dr. Ashok Hidalgo on an outpatient basis. Patient has a previous history significant for hypertension, hyperlipidemia, diabetes mellitus type 2, history of CVA in 2013 and TIA in 2015, chronic kidney disease stage III, and COPD. On 09/15/2016 the patient presented to the emergency department here at [facility] via EMS with complaints of shortness of breath. The patient had been sleeping and woke up around 2 AM was in significant shortness of breath and complaints of chest pressure. The patient's was subsequently called EMS and he was transported to the emergency department. Subsequently a chest x-ray was completed which showed pulmonary vascular congestion and interstitial infiltrates suggestive of pulmonary edema. His 12-lead EKG on arrival showed slight T-wave inversion as well his labs demonstrated elevated troponins as high as 0.936 ng/ml, hemoglobin of 8.6, hematocrit of 26.2, d- dimer of 1.19, BUN of 41, and a creatinine of 1.78. Due to the patient's above- mentioned symptoms, positive troponins he was evaluated by Dr. Cowan from [facility].] HOSPITAL COURSE:[ The patient was admitted to the hospital and after obtaining consent he was taken to the cardiac catheterization lab where he underwent a cardiac catheterization by Dr. Cowan. His cardiac catheterization results demonstrated severe left main stenosis of 99%, 60% stenosis to his right coronary artery, 80% stenosis to his circumflex coronary artery, and a 50% stenosis to his proximal left anterior descending coronary artery. During his heart catheterization, due to his severe left main coronary artery stenosis and intra-aortic balloon pump was placed. The patient also had a 2-D echocardiogram completed which showed mild mitral valve regurgitation, mild tricuspid valve regurgitation, normal aortic root, ascending aorta, mild concentric left ventricular hypertrophy and an overall left ventricular systolic function to be moderate to severely impaired with an ejection fraction between 30 and 35%. The above-mentioned studies were reviewed with the patient and his by Dr. Cowan and by Dr. Whatley from cardiothoracic surgery and an emergent coronary artery bypass grafting surgery was recommended. After obtaining consent, the patient was taken to the operating room where Dr. Aundrea Whatley performed an emergent quadruple coronary artery bypass grafting using the left internal mammary artery to the left intramyocardial left anterior descending coronary artery, a reverse greater saphenous vein graft connected to the aorta using the PAS-port device and connected distally to the right coronary artery after local endarterectomy, a reverse greater saphenous vein graft connected to the aorta using the PAS-port device and anastomosed sequentially to the second obtuse marginal coronary artery and a [id number] fashion and then the third obtuse marginal coronary artery in an end to side fashion. He also underwent endoscopic harvesting of his left greater saphenous vein, an intraoperative transesophageal echocardiogram, epi-aortic scanning, and intraoperative graft flow measurement using the [employer] system. The patient was subsequently transferred to the cardiovascular intensive care unit where he was recovered, monitored hemodynamically, and where he progressed to cardiac rehabilitation phase 1. The patient was extubated on 09/16/2016 at 5: 35 PM, although did require some BiPAP support post extubation. The patient also had some postoperative paroxysmal atrial fibrillation which was treated accordingly. He was subsequently transferred to [address] [place] [address] for further monitoring and postoperative rehabilitation.] COMPLICATIONS: [His postoperative recovery was complicated by some paroxysmal atrial fibrillation which was treated accordingly.] CONSULTATIONS: 1.[ Dr. Cowan for cardiology management] 2.[ Dr. Hidalgo for medical management] 3.[ Dr. Watkins for pulmonary and ventilator management] DISCHARGE INSTRUCTIONS: 1. No driving for 4 weeks, or until physician gives their ok. 2. The patient should sleep in their own bed, no medical bed needed. 3. Stairs are not an issue. If the bedroom is upstairs, it is advised that the patient go up at night and down in the morning for the first week. Go slowly, using handrail and take 1 step at a time. 4. TRINA hose are to be worn for 30 days or until physician discontinues. 5. Heart hugger is to be worn 100% of the time until physician discontinues.( except when showering) 6. No lifting, pushing, or pulling more than 10 pounds for 12 weeks. The physician will advise of any restriction changes. 7. The patient is expected to continue the prescribed walking program. 8. Continue pain control per as needed orders. 9. Continue with incentive spirometry and splinting/heart hugger until otherwise directed by the physician. 10. Must shower daily using liquid antibacterial soap and a separate white washcloth for each individual incision. 11. Routine sternal incision care, no ointments, lotions or powders on the incisions. 12. Please notify surgeon/nurse practitioner for temperature greater than 101F or purulent drainage from incisions. 13. The importance of smoking cessation was discussed with the patient and a smoking cessation pamphlet was offered to the patient. 14. Physical therapy to evaluate and treat. 15. Respiratory therapy to evaluate and treat HOME HEALTH SERVICES TO PROVIDE: RN SKILLED HOME CARE SERVICES FOR POST-OP SURGICAL PATIENTS WITH THE FOLLOWING: Coronary Artery Bypass Surgery (CABG), Mitral Valve Replacement/ Repair ( MVR), Aortic Valve Replacement/Repair (AVR) RN TO CONTINUE EDUCATION FROM ``ROAD TO A HEALTH HEART PATIENT EDUCATION MANUAL (GIVEN TO PATIENT IN THE HOSPITAL) MEDICATION RECONCILIATION WITH EDUCATION NEEDED ON FIRST HOME VISIT EMPHASIZE IMPORTANCE OF WEARING BREAST SUPPORT/HEART HUGGER ENCOURAGE USE OF INCENTIVE SPIROMETER 10 X EVERY HOUR WHILE AWAKE ENCOURAGE UTILIZATION OF LOWER EXTREMITY COMPRESSION STOCKINGS/TRINA HOSE and ELEVATE LEGS ABOVE LEVEL OF HEART WHILE AT REST. ENCOURAGE AMBULATION 3-5x/day INCREASING TOLERATES, WHILE AVOID EXTREMES IN TEMPERATURE REMOVAL OF SUTURES: NURSING SERVICES TO REMOVE SUTURES TWO WEEKS POST SURGICAL DATE 09/29/2016. If any questions regarding suture removal please call the office at [phone]. LABORATORY: CBC, CMP TO BE DRAWN ON THE THIRD DAY POST DISCHARGE, 09/26/2016 (RAN STAT) FAX RESULTS TO [phone]. TELEHEALTH PARAMETERS: WEIGHT: NOTIFY MD OF WEIGHT GAIN OF 2 LBS IN 24 HOURS OR 5 LBS IN ONE WEEK HR: NOTIFY MD OF HR <55 BPM OR HR>100 BPM BP: NOTIFY MD IF BP <90/55 OR BP>140/100 O2 SAT: NOTIFY MD IF PO2<93% ON ROOM AIR SEND HEALTH REPORT TO STONE SANDBLASTER AND CARDIOVASCULAR SURGEON THE FIRST WEEK OF CARE AND THEN BI-WEEKLY. PLEASE ADDITIONALLY COMMUNICATE ANY ABNORMALS AND NEW FINDINGS TO THE SURGEONS OFFICE. Patient Condition at Discharge: Serious Plan - Discharge Summary New Discharge Prescriptions: No Action Cholecalciferol [Vitamin D3] 1,000 unit PO DAILY@1200 Magnesium 200 mg PO DAILY Melatonin 5 mg PO HS Simvastatin [Zocor] 40 mg PO HS Fenofibrate Nanocrystallized [Tricor] 145 mg PO DAILY Lisinopril [Prinivil] 10 mg PO BID Clopidogrel [Plavix] 75 mg PO DAILY #30 tab Fluticasone Nasal Harmony [Flonase Nasal Harmony] 1 spray EA NOSTRIL DAILY PRN PRN Reason: Allergy Symptoms Etodolac [Lodine] 300 mg PO BID Aspirin 81 mg PO DAILY chew Insulin Detemir [Levemir] 45 unit SQ HS Insulin Detemir [Levemir] 40 units SQ AC-BRKFST Insulin Aspart [NovoLOG] See Protocol SQ ACHS Discharge Medication List Cholecalciferol [Vitamin D3] 1,000 unit PO DAILY@1200 10/07/13 [History] Clopidogrel [Plavix] 75 mg PO DAILY #30 tab 10/09/13 [Rx] Amiodarone [Cordarone] 400 mg PO BID tab 09/23/16 [Rx] Aspirin 325 mg PO DAILY tab 09/23/16 [Rx] Atorvastatin [Lipitor] 40 mg PO DAILY tab 09/23/16 [Rx] Benzocaine/Menthol Lozeng [Cepacol lozenge] 1 each MUCOUS MEM Q2H PRN lozenge 09/23/16 [Rx] Budesonide [Pulmicort] 0.5 mg INHALATION RT-BID neb 09/23/16 [Rx] HYDROcodone/APAP 5-325MG [[place] 5-325] 1 - 2 each PO Q6HR PRN #120 tab 09/23/16 [Rx] Heparin Sodium,Porcine [Heparin Sodium] 5,000 unit SQ Q8HR vial 09/23/16 [Rx] INSULIN LISPRO (humaLOG) [humaLOG (formulary)] 0 unit SQ ACHS vial 09/23/16 [Rx ] Insulin Detemir [Levemir] 27 unit SQ HS vial 09/23/16 [Rx] Ipratropium-Albuterol Nebulize [Duoneb 0.5 mg-3 mg/3 ml Soln] 3 ml INHALATION RT -Q2H PRN neb 09/23/16 [Rx] Lisinopril [Zestril] 2.5 mg PO DAILY tab 09/23/16 [Rx] Magnesium Hydroxide [Milk of Magnesia Concentrate] 2,400 mg PO BID PRN dose [Rx] Metoprolol Tartrate [Lopressor] 25 mg PO TID tab 09/23/16 [Rx] Pantoprazole [Protonix] 40 mg PO AC-BRKFST tab 09/23/16 [Rx] Sennosides-Docusate Sodium [Senokot-S] 2 each PO HS tab 09/23/16 [Rx] Sodium Bicarbonate Tab 650 mg PO BID tab 09/23/16 [Rx] Follow up Appointment(s)/Referral(s): Anup Cowan MD [STAFF PHYSICIAN] - 10/02/16 4:00 pm ([facility], not the [facility] [address] address) Aundrea Whatley MD [STAFF PHYSICIAN] - 10/16/16 10:30 am Ashok Hidalgo MD [Primary Care Provider] - 10/06/16 1:00 pm (Appt is with GERARDO Brand) Cari Watkins DO [Doctor of Osteopathic Medicine] - 10/08/16 11:15 am Shiv Lester DO [STAFF PHYSICIAN] - 10/14/16 11:20 am (Appt is with GERARDO Carroll) Ambulatory/Diagnostic Orders: Complete Blood Count w/diff [LAB.AMB] Time Frame: 3 Days, Location: Determined By Patient Comprehensive Metabolic Panel [LAB.AMB] Time Frame: 3 Days, Location: Determined By Patient
[2016-09-23 11:32] LABS: Glucose,Whole Blood 113 mg/dL (75-99)
--- NOTE | 2016-09-23 12:18 | P.PN ---
Subjective 61-year-old male one of my office patient of known for long time with past medical history of CVA, PAD, CAD, COPD, chronic smoking, diabetes, chronic neuropathy and stage III kidney disease who was the hospital last in September 2015 for CVA. Patient has been doing well his blood sugar has been slightly elevated. Patient went to sleep was feeling well he woke up around 2:00 after midnight gasping for air having significant shortness of breath with mild tightness and pressure with mild cold sweat than slight wheezes and cough. Patient ended up coming to the emergency department at [facility] where was seen and evaluated surprisingly his chest x-ray showed sign of pulmonary edema first EKGs shows slight T waves inversion second EKG had mild change as well and his troponin continued to be mildly elevated. Patient was diagnosed with acute pulmonary edema secondary to congestive heart failure and possible from acute currently syndrome. Patient risk factor of having coronary artery disease extremely high at the time. Patient will be seen cardiology and possible need for an intervention with heart catheter. His chronic kidney disease with the current creatinine is quite bit elevated will involve nephrology diuresis patient and add Nitrol hopefully patient be more stable at this point and I hope creatinine will improve enough to allow him to go for heart catheter when he is ready. 09/16: The patient had worsening dyspnea and flash pulmonary edema. He underwent a cardiac catheterization which revealed more than 90% diffuse left main stenosis with moderate stenosis of the right coronary artery with some collaterals through the septals to the left system. He underwent an emergent CABG and required placement of a intra aortic balloon pump, this was placed by Dr. Cowan in the qc lab technician. 2-D echo shows ejection fraction of 30% with no significant valvular abnormality. He is currently intubated and and is is on levophed and a primacor drip. He is also being followed by nephrology for his chronic kidney disease stage III. BUN 41, creatinine 1.78. Last chest x-ray showed vascular congestion and mild edema left basilar airspace disease, improving postoperative changes. The patient is also being followed by pulmonology. 09/17: The patient was extubated yesterday he did have some respiratory distress overnight and required placement of a BiPAP. Right femoral intra-aortic balloon pump was also removed yesterday he was weaned off levophed in Primacor drip was also turned off. Repeat chest x-ray showed postsurgical change worsening bibasilar airspace disease, small bilateral effusions, and worsening subcutaneous emphysema on the left. The patient continues to be followed by pulmonology. Kidney function slightly improved from yesterday BUN 34 creatinine 1.9. 09/18: The patient was evaluated today he was sitting up in the chair eating breakfast. The patient is off BiPAP and remains on nasal cannula. BUN/ creatinine remain elevated, but again have improved since yesterday nightly 39, creatinine 1.7. PT/OT was consulted. The patient will be encouraged to get out of bed and start to ambulate. chest x-ray shows persisting cardiomegaly with moderate central vascular congestion and bibasilar infiltrate or atelectasis and likely small bilateral pleural effusions. Left chest tube and two mediastinal drain catheters remain present. 09/19/2016: Patient is feeling a bit better today, he continues to have some pain in the on and off, he is having a burning sensation in the left lower x-ray , his pacer wire were removed, and the patient will be transferred to [facility] ([facility]3] care. 09/20/2016: Patient was transferred out of the intensive care unit yesterday he is sitting up in chair, continue to have some soreness in his left lower extremity, he is using incentive spirometer, patient did have an episode of hypoglycemia, subsequently we'll decrease his Levemir to 32 units subcutaneously at bedtime along with sliding scale insulin. Patient did receive apple juice after his blood glucose level was checked at the bedside at 51. 09/22: Blood sugars are running 89-231 after changes made yesterday to insulin. Chest x-ray shows cardiomegaly, bibasilar atelectasis and small bilateral effusions. Patient went into atrial fibrillation with RVR and started on amiodarone IV and digoxin and subsequently converted to normal sinus rhythm. He is now on oral amiodarone. Repeat echocardiogram was ordered and report is pending. Patient is planned for inpatient rehab at [facility] tomorrow. Patient denies any complaints at this time. 09/23: A repeat echocardiogram showed an EF of 50-55%. Patient is currently in a normal sinus rhythm. BUN is 3.5 and creatinine 1.66. His blood glucose running between 101 and 215. No changes will be made insulin. He states he had episode of chest discomfort last night but none now. He feels little short of breath after ambulating down [place] and back.He is scheduled for discharge to inpatient rehab at [facility] today. Objective - Vital Signs Vital signs: Vital Signs Temp 97.2 F L 09/23/16 04:00 Pulse 72 09/23/16 04:00 Resp 18 09/23/16 04:00 BP 131/65 09/23/16 04:00 Pulse Ox 95 09/23/16 04:00 Intake & Output 09/22/16 09/23/16 09/23/16 18:59 06:59 18:59 Intake Total 200 Output Total 500 225 Balance -300 -225 Weight 83.6 kg Intake: Oral 200 Output: Urine 500 225 Other: Voiding Method Urinal Urinal # Voids 2 1 ABP, PAP, CO, CI - Last Documented Arterial Blood Pressure 109/52 Pulmonary Artery Pressure 38/22 Cardiac Output 5.6 Cardiac Index 2.9 - Exam General appearance: no average body habitus, cooperative, disheveled, no mild distress, no morbidly obese, no acute distress, no obese, no severe distress, no thin - EENT Eyes: abnormal pupil, no anicteric sclerae, no disc margins sharp, no edentulous , no EOMI, no PERRLA, no fundus normal, no photophobia, no dentition normal, no poor dentition, no ptosis, no scleral icterus, normal appearance ENT: hard of hearing, no hearing grossly normal, no NA/AT, normal oropharynx, no other, no pharyngeal erythema, no thrush, no tonsillar exudates, no tonsillar swelling Ears: bilateral: normal - Neck Neck: no lymphadenopathy, normal ROM, no other, no rigidity, no stridor, no thyromegaly Carotids: bilateral: upstroke normal Thyroid: bilateral: normal size - Respiratory Respiratory: bilateral: diminished, dullness, rales, rhonchi, wheezing - Cardiovascular Rhythm: regular Heart sounds: normal: S1, S2 Abnormal Heart Sounds: systolic murmur, S3 Gallop - Gastrointestinal General gastrointestinal: no absent bowel sounds, decreased bowel sounds, no distended, no hepatomegaly, no hyperactive bowel sounds, normal bowel sounds, no organomegaly, no rigid, no scaphoid, soft, no splenomegaly, no tenderness, no umbilical hernia, no ventral hernia - Integumentary Integumentary: no calor, no cellulitis, no cyanotic, no decreased turgor, no flushed, no jaundiced, normal, no normal turgor, pale, rash, no ulcer - Neurologic Neurologic: CNII-XII intact - Musculoskeletal Musculoskeletal: no gait normal, generalized weakness, no strength equal bilaterally, no right sided weakness, no left sided weakness - Psychiatric Psychiatric: A&O x's 3, no appropriate affect, no intact judgment & insight - Labs CBC & Chem 7: 09/23/16 05:43 09/23/16 05:43 Labs: Abnormal Lab Results - Last 24 Hours (Table) 09/22/16 09/22/16 09/22/16 Range/Units 08:25 08:25 11:36 WBC 10.8 H (3.8-10.6) k/uL RBC 3.11 L (4.30-5.90) m/uL Hgb 9.0 L (13.0-17.5) gm/dL Hct 28.2 L (39.0-53.0) % Neutrophils # 8.2 H (1.3-7.7) k/uL Chloride 109 H (98-107) mmol/L Carbon Dioxide 18 L (22-30) mmol/L BUN 39 H (9-20) mg/dL Creatinine 1.77 H (0.66-1.25) mg/dL Glucose 162 H (74-99) mg/dL POC Glucose (mg/dL) 120 H (75-99) mg/dL Calcium 8.2 L (8.4-10.2) mg/dL Total Protein 5.8 L (6.3-8.2) g/dL Albumin 3.2 L (3.5-5.0) g/dL 09/22/16 09/22/16 09/23/16 Range/Units 16:41 20:57 02:09 WBC (3.8-10.6) k/uL RBC (4.30-5.90) m/uL Hgb (13.0-17.5) gm/dL Hct (39.0-53.0) % Neutrophils # (1.3-7.7) k/uL Chloride (98-107) mmol/L Carbon Dioxide (22-30) mmol/L BUN (9-20) mg/dL Creatinine (0.66-1.25) mg/dL Glucose (74-99) mg/dL POC Glucose (mg/dL) 181 H 215 H 134 H (75-99) mg/dL Calcium (8.4-10.2) mg/dL Total Protein (6.3-8.2) g/dL Albumin (3.5-5.0) g/dL 09/23/16 09/23/16 09/23/16 Range/Units 05:43 05:43 05:55 WBC 11.0 H (3.8-10.6) k/uL RBC 3.24 L (4.30-5.90) m/uL Hgb 9.1 L (13.0-17.5) gm/dL Hct 28.8 L (39.0-53.0) % Neutrophils # 8.4 H (1.3-7.7) k/uL Chloride 111 H (98-107) mmol/L Carbon Dioxide 20 L (22-30) mmol/L BUN 35 H (9-20) mg/dL Creatinine 1.66 H (0.66-1.25) mg/dL Glucose (74-99) mg/dL POC Glucose (mg/dL) 101 H (75-99) mg/dL Calcium (8.4-10.2) mg/dL Total Protein 5.7 L (6.3-8.2) g/dL Albumin 3.2 L (3.5-5.0) g/dL Assessment and Plan Plan: 1 CABG secondary to acute coronary syndrome with mildly elevated troponin slight change in his EKG: patient underwent cardiac cath, required emergent CABG , patient is doing better today his pacer wire were removed, and he would be transferred to selective care. 2 non-STEMI with left main disease: Patient underwent emergent CABG . Continue to monitor the patient very closely. 3 acute respiratory failure status post CABG surgery. Continue nebulized treatment, continue patient on incentive spirometer, early ambulation. 4 acute pulmonary edema: Status post furosemide, repeat chest x-ray 5 acute kidney injury secondary to hemodynamic instability and acute AR status post CABG: Continue to watch BUN and creatinine closely 6 Chronic kidney disease stage III: Patient followed by nephrology. We'll continue to monitor BUN and creatinine. 7 type 2 diabetes with episodic hypoglycemia. Decrease Levemir to 30 units at bedtime along with sliding scale insulin. Monitor the patient very closely for hypoglycemia. 8 COPD: Continue patient on O2, DuoNeb and Pulmicort, pulmonary is consulted 9 hyperlipidemia: Continue Lipitor 40 mg a day. 10 BPH: Continue to watch for any urinary retention. 11 chronic tobacco use and dependency. 12 history of CVA: Still with slight residual. 13 hypertension: continue metoprolol 14. GI prophylaxis: Continue patient on pantoprazole 40 mg daily. 15. DVT prophylaxis: Patient be on heparin 5000 units continues twice a day. 16. Atrial fibrillation with RVR, paroxysmal atrial fibrillation. Patient converted to normal sinus rhythm. IV amiodarone and digoxin was given. Patient is now on oral amiodarone. Repeat echocardiogram has been done CODE STATUS: Full code. Discharge plan: Inpatient Rehab Impression and plan of care have been directed as dictated by the signing physician. Lizeth Perea nurse practitioner acting as scribe for signing physician.
--- NOTE | 2016-09-23 12:21 | CDI ---
In responding to this query, please exercise your independent professional judgment. The [facility] Coding Staff and Clinical Documentation Specialists appreciate your assistance in clarifying documentation, maintaining compliance with coding guidelines, accurately documenting patients condition and capturing severity of illness. The fact that a question is asked does not imply that any particular answer is desired or expected. Communication forms are a method of clarifying documentation and are not made part of the Legal Health Record. Thank you in advance for your clarification. Last Revision, January 2015 Remigio Garay [address] [place] [address] Documentation Clarification Form Date: 09/23/2016 12:05:00 PM From: Eden Stubbs CCS, CCDS Admit Date: 09/15/2016 4:06:00 AM Patient Name: Chema Cerna Visit Number: [id number] Discharge Date: Dr. Aundrea Whatley: Atrial fibrillation is documented in the discharge summary as postoperative paroxysmal atrial fibrillation. History/Risk Factors: NSTEMI, triple vessel CAD status post quadruple CABG this admission. Clinical Indicators: Postoperatively the patient went into atrial fibrillation with RVR and started on Amiodarone IV and Digoxin and subsequently converted to normal sinus rhythm. EKG/telemetry: R 104 - 79 Treatment: IV Amiodarone. Post CABG care. In your professional opinion, is the atrial fibrillation due to or the result of the CABG procedure. Please clarify if the documented paroxysmal atrial fibrillation is: An expected post-procedural or post-surgical condition Integral to the procedure Inherent to the procedure An unexpected post-procedural or post-surgical condition related to surgical care Other, please specify: Clinically unable to determine. Please document in your progress notes and discharge summary in order to capture severity of illness and risk of mortality. Include clinical findings that support your diagnosis. FYI: Press F11 to launch patient chart Place X here if this finding has no clinical significance, is not applicable or if you are not able to provide any additional documentation. Thank You. SWAPNIL
[2016-09-23 12:36] VITALS: BP 131/64; PULSE 74; TEMP 97.8
--- NOTE | 2016-09-23 13:16 | US ---
EXAMINATION TYPE: US carotid duplex BILAT DATE OF EXAM: 09/15/2016 COMPARISON: NONE CLINICAL HISTORY: Pre op cardiac surgery. History of occlusion left CCA EXAM MEASUREMENTS: RIGHT: Peak Systolic Velocity (PSV) cm/sec ----- Right CCA: 73.3 ----- Right ICA: 89.9 ----- Right ECA: 355.5 ICA/CCA ratio: 1.2 RIGHT: End Diastole cm/sec ----- Right CCA: 35.8 ----- Right ICA: 45.8 ----- Right ECA: 120.1 LEFT: Peak Systolic Velocity (PSV) cm/sec ----- Left CCA: not detected VERTEBRALS (direction of flow): Right Vertebral: Antegrade Moderate plaque right bifurcation. Increased velocities right ECA. Internal echoes noted left CCA, un able to obtain color or Doppler signal within left CCA. IMPRESSION: 1. NO HEMODYNAMICALLY SIGNIFICANT STENOSIS ON THE RIGHT. 2. OCCLUSION OR TRICKLE FLOW AT THE LEVEL OF THE CAROTID BULB ON THE LEFT. Criteria for Assigning % of Stenosis / Diameter reduction (Estimation based on the indirect measurements of the internal carotid artery velocities (ICA PSV). 1. Normal (no stenosis)=ICA PSV < 125 cm/s: ratio < 2.0: ICA EDV<40 cm/s. 2. Less than 50% stenosis=ICA PSV < 125 cm/s: ratio < 2.0: ICA EDV<40 cm/s. 3. 50 to 69% stenosis=ICA PSV of 125 to 230 cm/s: ration 2.0 ? 4.0: ICA EDV 40-100 cm/s. 4. Greater than 70% stenosis to near occlusion= ICA PSV > 230 cm/s: ratio > 4.0: ICA EDV > 100 cm/s. 5. Near occlusion= ICA PSV velocities may be low or undetectable: variable ratio and ICA EDV. 6. Total occlusion=unable to detect flow.
--- NOTE | 2016-09-23 13:34 | P.PN ---
Subjective Principal diagnosis: Non-STEMI This is a 60-year-old gentleman who presented to the hospital with a non-ST elevation myocardial infarction. He underwent coronary artery bypass grafting surgery, feeling overall much better today. Being followed on the telemetry unit. Feels well today overall, no complaints. Being transferred to rehab today. Objective - Vital Signs Vital signs: Vital Signs Temp 97.8 F 09/23/16 12:00 Pulse 74 09/23/16 12:00 Resp 18 09/23/16 12:00 BP 131/64 09/23/16 12:00 Pulse Ox 95 09/23/16 12:00 Intake & Output 09/22/16 09/23/16 09/23/16 18:59 06:59 18:59 Intake Total 200 Output Total 500 225 Balance -300 -225 Weight 83.6 kg Intake: Oral 200 Output: Urine 500 225 Other: Voiding Method Urinal Urinal Urinal # Voids 2 1 2 # Bowel Movements 1 ABP, PAP, CO, CI - Last Documented Arterial Blood Pressure 109/52 Pulmonary Artery Pressure 38/22 Cardiac Output 5.6 Cardiac Index 2.9 - Exam PHYSICAL EXAMINATION: HEENT: Head is atraumatic, normocephalic. Pupils equal, round. Neck is supple. There is no elevated jugular venous pressure. HEART EXAMINATION: Heart S1, S2 normal. No murmur or gallop heard. CHEST EXAMINATION: Circumflex clear with diminished air entry to bilateral bases. ABDOMEN: Soft, nontender. Bowel sounds are heard. No organomegaly noted. EXTREMITIES: 2+ peripheral pulses with evidence of peripheral edema and no calf tenderness noted. Bilateral TRINA hose in place. NEUROLOGIC patient is awake, alert and oriented -3. . - Labs CBC & Chem 7: 09/23/16 05:43 09/23/16 05:43 Labs: Abnormal Lab Results - Last 24 Hours (Table) 09/22/16 09/22/16 09/23/16 Range/Units 16:41 20:57 02:09 WBC (3.8-10.6) k/uL RBC (4.30-5.90) m/uL Hgb (13.0-17.5) gm/dL Hct (39.0-53.0) % Neutrophils # (1.3-7.7) k/uL Chloride (98-107) mmol/L Carbon Dioxide (22-30) mmol/L BUN (9-20) mg/dL Creatinine (0.66-1.25) mg/dL POC Glucose (mg/dL) 181 H 215 H 134 H (75-99) mg/dL Total Protein (6.3-8.2) g/dL Albumin (3.5-5.0) g/dL 09/23/16 09/23/16 09/23/16 Range/Units 05:43 05:43 05:55 WBC 11.0 H (3.8-10.6) k/uL RBC 3.24 L (4.30-5.90) m/uL Hgb 9.1 L (13.0-17.5) gm/dL Hct 28.8 L (39.0-53.0) % Neutrophils # 8.4 H (1.3-7.7) k/uL Chloride 111 H (98-107) mmol/L Carbon Dioxide 20 L (22-30) mmol/L BUN 35 H (9-20) mg/dL Creatinine 1.66 H (0.66-1.25) mg/dL POC Glucose (mg/dL) 101 H (75-99) mg/dL Total Protein 5.7 L (6.3-8.2) g/dL Albumin 3.2 L (3.5-5.0) g/dL 09/23/16 Range/Units 11:29 WBC (3.8-10.6) k/uL RBC (4.30-5.90) m/uL Hgb (13.0-17.5) gm/dL Hct (39.0-53.0) % Neutrophils # (1.3-7.7) k/uL Chloride (98-107) mmol/L Carbon Dioxide (22-30) mmol/L BUN (9-20) mg/dL Creatinine (0.66-1.25) mg/dL POC Glucose (mg/dL) 113 H (75-99) mg/dL Total Protein (6.3-8.2) g/dL Albumin (3.5-5.0) g/dL Assessment and Plan Plan: Assessment and plan #1 non-ST elevation myocardial infarction, status post coronary bypass grafting surgery #2 hypertensive urgency #3 history of hypertension #4 congestive cardiac failure systolic acute on chronic #5 diabetes #6 hyperlipidemia #7 nicotine dependence #8 COPD #9 acute on chronic kidney disease #10 prior TIA #11 abnormal liver enzymes likely secondary to congestion Plan . Echo cardiac exam with Doppler study revealed an ejection fraction of 50-55% . Arrangements are being made for the patient to be transferred to rehab today. We'll make him a two-week follow-up appointment in the office post discharge. DNP note has been reviewed, I agree with a documented findings and plan of care. Patient was seen and examined.
--- NOTE | 2016-09-23 15:57 | P.VSCSTY ---
Greater Saphenous Vein Mapping This is bilateral lower extremity greater saphenous vein mapping. Date of service 09/15/2016 Vein quality and ultrasound appearance normal. Vein size groin right 5.4 x 5.8 groin left 5.7 x 7.1 High thigh right [ ] high thigh left 5.2 x 3.8 Mid thigh right [ ] mid thigh left 2.6 x 3.1 Above-knee right [ ] above-knee left 2.5 x 3.6 Below knee right 2.7 x 2.6 below-knee left 2.8 x 3.2 Mid calf right [] mid calf left 2.1 x 2.4 Ankle right [] ankle left 2.3 x 3.0 Impression usable greater saphenous vein left leg. Probably usable vein right leg but limited exposure..
--- NOTE | 2016-10-20 10:08 | CDI ---
In responding to this query, please exercise your independent professional judgment. The [facility] Coding Staff and Clinical Documentation Specialists appreciate your assistance in clarifying documentation, maintaining compliance with coding guidelines, accurately documenting patients condition and capturing severity of illness. The fact that a question is asked does not imply that any particular answer is desired or expected. Communication forms are a method of clarifying documentation and are not made part of the Legal Health Record. Thank you in advance for your clarification. Last Revision, January 2015 Remigio Garay [address] [place] [address] Documentation Clarification Form Date: 09/22/2016 10:19:00 AM Resubmitted 10/26/16 From: Eden Stubbs Admit Date: 09/15/2016 4:06:00 AM Patient Name: Chema Cerna Visit Number: [id number] Discharge Date: 09/23/2016 Dr. Shiv Chandra diagnosis of anemia lacks specificity to accurately reflect your patients severity of condition and clarification is needed. Patient history/risk factors: 60 yo male, status post CABG for CAD, also has CKD stage III. Clinical Indicators: Hemoglobin: Preop Hgb: 15.3, Postop Hgb 8.2 Hematocrit: Preop Hct: 48.4, Postop Hct 25.6 Treatment: Received two units Platelets preoperatively, IV fluids, daily CBC In order to capture the severity of condition, please clarify the type of anemia and etiology if known: Acute blood loss anemia Expected outcome of surgery Unexpected outcome of surgery Acute on chronic blood loss anemia Expected outcome of surgery Unexpected outcome of surgery Chronic blood loss anemia Iron deficiency anemia Hemolytic anemia Drug induced anemia Nutritional anemia Anemia of chronic kidney disease Unable to determine Other, please specify Please document in your progress notes and discharge summary in order to capture severity of illness and risk of mortality. Include clinical findings that support your diagnosis. FYI: Press F11 to launch patient chart. SWAPNIL
== END 2016-09-23 13:24 | DRG 233 ==
LOC: EC 01:43 → 6SEL 04:06 → 6ICU 12:46 → 6SEL 09-19 12:00
PROVIDERS: ADMIT Surgery; ATTEND Internal Medicine Geriatric Medicine
PROC: B211YZZ Fluoroscopy of Multiple Coronary Arteries using Other Contrast (ICD-10-PCS; 2016-09-15)
PROC: 06BQ4ZZ Excision of Left Saphenous Vein, Percutaneous Endoscopic Approach (ICD-10-PCS; 2016-09-15)
PROC: 021209W Bypass Coronary Artery, Three Arteries from Aorta with Autologous Venous Tissue, Open Approach (ICD-10-PCS; 2016-09-15)
PROC: B44HZZZ Ultrasonography of Bilateral Lower Extremity Arteries (ICD-10-PCS; 2016-09-15)
PROC: 5A1221Z Performance of Cardiac Output, Continuous (ICD-10-PCS; 2016-09-15)
PROC: B24BZZ4 Ultrasonography of Heart with Aorta, Transesophageal (ICD-10-PCS; 2016-09-15)
PROC: 30243R1 Transfusion of Nonautologous Platelets into Central Vein, Percutaneous Approach (ICD-10-PCS; 2016-09-15)
PROC: 0D9670Z Drainage of Stomach with Drainage Device, Via Natural or Artificial Opening (ICD-10-PCS; 2016-09-15)
PROC: 5A02210 Assistance with Cardiac Output using Balloon Pump, Continuous (ICD-10-PCS; principal; 2016-09-15 11:36)
PROC: 02100Z9 Bypass Coronary Artery, One Artery from Left Internal Mammary, Open Approach (ICD-10-PCS; 2016-09-15 11:36)
DX: I21.4 Non-ST elevation (NSTEMI) myocardial infarction (principal); I50.23 Acute on chronic systolic (congestive) heart failure; J96.21 Acute and chronic respiratory failure with hypoxia; E87.4 Mixed disorder of acid-base balance; E87.0 Hyperosmolality and hypernatremia; I13.0 Hypertensive heart and chronic kidney disease with heart failure and stage 1 through stage 4 chronic kidney disease, or unspecified chronic kidney disease; I95.9 Hypotension, unspecified; N17.9 Acute kidney failure, unspecified; E11.22 Type 2 diabetes mellitus with diabetic chronic kidney disease; E87.5 Hyperkalemia; N18.3 Chronic kidney disease, stage 3 (moderate); I25.5 Ischemic cardiomyopathy; E11.40 Type 2 diabetes mellitus with diabetic neuropathy, unspecified; E11.51 Type 2 diabetes mellitus with diabetic peripheral angiopathy without gangrene; I25.119 Atherosclerotic heart disease of native coronary artery with unspecified angina pectoris; E11.649 Type 2 diabetes mellitus with hypoglycemia without coma; I48.0 Paroxysmal atrial fibrillation; E11.65 Type 2 diabetes mellitus with hyperglycemia; I08.1 Rheumatic disorders of both mitral and tricuspid valves; I65.22 Occlusion and stenosis of left carotid artery; J44.9 Chronic obstructive pulmonary disease, unspecified; Z68.30 Body mass index [BMI] 30.0-30.9, adult; I16.0 Hypertensive urgency; D64.9 Anemia, unspecified; E78.5 Hyperlipidemia, unspecified; N40.0 Benign prostatic hyperplasia without lower urinary tract symptoms; T81.82XA Emphysema (subcutaneous) resulting from a procedure, initial encounter; R63.3 Feeding difficulties; F17.200 Nicotine dependence, unspecified, uncomplicated; E66.9 Obesity, unspecified; M19.91 Primary osteoarthritis, unspecified site; T50.2X5A Adverse effect of carbonic-anhydrase inhibitors, benzothiadiazides and other diuretics, initial encounter; Z86.73 Personal history of transient ischemic attack (TIA), and cerebral infarction without residual deficits; Z96.641 Presence of right artificial hip joint; Z79.82 Long term (current) use of aspirin; Z79.02 Long term (current) use of antithrombotics/antiplatelets; Z79.4 Long term (current) use of insulin; Z79.899 Other long term (current) drug therapy; Z82.49 Family history of ischemic heart disease and other diseases of the circulatory system
CPT/HCPCS: 33967; 36415; 36430; 36600; 36620; 71010; 71020; 76604; 80053; 80061; 80074; 81001; 81003; 82330; 82550; 82553; 82805; 83036; 83735; 83880; 84443; 84484; 85025; 85027; 85347; 85379; 85520; 85610; 85730; 86850; 86891; 86900; 86901; 86920; 87077; 87086; 87186; 88304; 93005; 93306; 93308; 93454; 93880; 94002; 94003; 94640; 94660; 96365; 96366; 96372; 99285

== ENCOUNTER → 2016-10-29 | Outpatient (CLI) | payer MEDICARE ==
--- NOTE | 2016-10-29 15:14 | US ---
EXAMINATION TYPE: US kidneys/renal and bladder DATE OF EXAM: 10/29/2016 COMPARISON: 07/01/2009 CLINICAL HISTORY: N17.9 ACUTE KIDNEY INJURY. Type 2 diabetes abnormal bloodwork, no injury EXAM MEASUREMENTS: Right Kidney: 11.6 x 5.7 x 5.2 cm Left Kidney: 11.8x 4.9 c 6.5 cm Post Void Residual Volume: 31 mL Right Kidney: cyst medial 1.9 x 1.5 x 1.5 superior, lower pole 5.1 x 3.6 x 4.4 cm cyst Left Kidney: cortical cyst 1.2 x 1.3 x 0.8 cm inferior, superior cyst 1.4 x 0.9 x 1.0 cm Bladder: wnl Bilateral Jets seen: Yes Normal Post Void Residual: Yes There is no evidence for hydronephrosis at this point in time. No nephrolithiasis is seen. No yuly s are identified. The urinary bladder is anechoic. Bilateral ureteral jets are seen. IMPRESSION: 1. No evidence of hydronephrosis or nephrolithiasis. 2. Bilateral renal cysts.
== END | disposition home or self-care (01) ==
LOC: RADUSWWP 14:15
PROVIDERS: ATTEND Internal Medicine Geriatric Medicine
DX: N28.1 Cyst of kidney, acquired (principal)
CPT/HCPCS: 76770

== ENCOUNTER → 2016-12-07 | Outpatient (CLI) | payer MEDICARE ==
[2016-12-07 10:49] LABS: Calcium 9.2 mg/dL (8.4-10.2); Potassium 5.4 mmol/L (3.5-5.1); Total Bilirubin 0.3 mg/dL (0.2-1.3); Total Protein 6.6 g/dL (6.3-8.2)
== END | disposition home or self-care (01) ==
LOC: LABWHC1 09:37
PROVIDERS: ATTEND Internal Medicine Interventional Cardiology
DX: E78.2 Mixed hyperlipidemia (principal)
CPT/HCPCS: 36415; 80053; 80061

== ENCOUNTER → 2017-01-01 | Outpatient (CLI) | payer MEDICARE ==
[2017-01-01 11:28] LABS: Anisocytosis Slight; CH 28.1; CHCM 32.3; HCT 47.1 % (39.0-53.0); HDW 2.72; HGB 14.7 gm/dL (13.0-17.5); MCH 27.3 pg (25.0-35.0); MCHC 31.1 g/dL (31.0-37.0); MCV 87.8 fL (80.0-100.0); Mean Platelet Volume 7.5; RBC 5.37 m/uL (4.30-5.90); RDW 17.6 % (11.5-15.5); WBC 6.9 k/uL (3.8-10.6)
[2017-01-01 11:38] LABS: Calcium 9.4 mg/dL (8.4-10.2); Magnesium 1.6 mg/dL (1.6-2.3); Phosphorous 4.1 mg/dL (2.5-4.5); Potassium 4.8 mmol/L (3.5-5.1); Uric Acid 7.9 mg/dL (3.5-8.5)
[2017-01-01 15:03] LABS: Hemoglobin A1C 7.1 % (4.2-6.1)
[2017-01-01 15:18] LABS: Appearance,Urine Clear (Clear); Bilirubin,Urine Negative (Negative); Glucose,Urine (UA) 3+ (Negative); Ketones,Urine Negative (Negative); Leukocyte Esterase,Urine Negative (Negative); Mucus,Urine Rare /hpf; Nitrite,Urine Negative (Negative); PH, Urine 6.5 (5.0-8.0); Particle Count 375; Protein,Urine 3+ (Negative); RBC,Urine 1 /hpf (0-5); Specific Gravity,Urine 1.011 (1.001-1.035); UA Billing (MACRO vs. MICRO) MICRO; Urobilinogen,Urine <2.0 mg/dL (<2.0)
[2017-01-01 16:18] LABS: Iron Saturation 26.77 (15.00-50.00)
== END | disposition home or self-care (01) ==
LOC: LABWHC1 10:56
PROVIDERS: ATTEND Nurse Practitioner Family
DX: N17.9 Acute kidney failure, unspecified (principal); E11.9 Type 2 diabetes mellitus without complications; N39.0 Urinary tract infection, site not specified; N25.81 Secondary hyperparathyroidism of renal origin; E55.9 Vitamin D deficiency, unspecified; M10.9 Gout, unspecified
CPT/HCPCS: 36415; 80048; 81001; 82306; 82728; 83036; 83540; 83550; 83735; 83970; 84100; 84550; 85027

== ENCOUNTER 2017-01-26 13:13 | Observation (INO) | payer MEDICARE, OTHER ==
--- NOTE | 2017-01-26 13:35 | ED ---
General Adult HPI - General Chief complaint: Arrhythmia/Palpitations Stated complaint: EKG Changes Time Seen by Provider: 01/26/17 13:16 Source: patient, EMS, RN notes reviewed, old records reviewed Mode of arrival: ambulatory Limitations: no limitations - History of Present Illness Initial comments: 61-year-old male presenting from cardiac rehab with EKG changes. Patient was noted to have these changes prior to any exercise. Patient denies chest pain. He has had some shortness of breath which is normal for him. He has history of COPD and emphysema. Patient denies increasing cough. He does admit to intermittent smoking, and not taking his breathing treatments or inhaler at home. Patient states that earlier in the day prior to cardiac related have an episode of lightheadedness when standing from prolonged sitting. This lasted only a few seconds. Patient is currently asymptomatic. Denies abdominal pain. Denies nausea vomiting or diarrhea. Denies fever or chills. - Related Data Home Medications Medication Instructions Recorded Confirmed Cholecalciferol [Vitamin D3] 1,000 unit PO DAILY 10/07/13 01/26/17 Aspirin [Adult Low Dose Aspirin EC] 81 mg PO DAILY 01/26/17 01/26/17 Citalopram Hydrobromide [CeleXA] 10 mg PO DAILY 01/26/17 01/26/17 Gemfibrozil [Lopid] 600 mg PO AC-BID 01/26/17 01/26/17 INSULIN LISPRO (humaLOG) [humaLOG 20 unit SQ AC-TID 01/26/17 01/26/17 (formulary)] Insulin Detemir [Levemir] 45 unit SQ HS 01/26/17 01/26/17 Ipratropium-Albuterol Nebulize 3 ml INHALATION RT-BID PRN 01/26/17 01/26/17 [Duoneb 0.5 mg-3 mg/3 ml Soln] Lisinopril [Zestril] 10 mg PO DAILY 01/26/17 01/26/17 Metoprolol Tartrate [Lopressor] 50 mg PO BID 01/26/17 01/26/17 Sildenafil Citrate [Viagra] 100 mg PO DAILY PRN 01/26/17 01/26/17 Previous Rx's Medication Instructions Recorded Clopidogrel [Plavix] 75 mg PO DAILY #30 tab 10/09/13 Atorvastatin [Lipitor] 40 mg PO DAILY tab 09/23/16 Budesonide [Pulmicort] 0.5 mg INHALATION RT-BID neb 09/23/16 Sodium Bicarbonate Tab 650 mg PO BID tab 09/23/16 Allergies Allergy/AdvReac Type Severity Reaction Status Date / Time No Known Allergies Allergy Verified 01/26/17 14:09 Review of Systems ROS Statement: Those systems with pertinent positive or pertinent negative responses have been documented in the HPI. ROS Other: All systems not noted in ROS Statement are negative. Past Medical History Past Medical History: Chest Pain / Angina, COPD, CVA/TIA, Diabetes Mellitus, Hyperlipidemia, Hypertension, Osteoarthritis (OA), Renal Disease, Supraventricular Tachycardia (SVT), Syncope, Vascular Disorder Additional Past Medical History / Comment(s): BACK PAIN History of Any Multi-Drug Resistant Organisms: None Reported Past Surgical History: Appendectomy, Hernia Repair, Joint Replacement Additional Past Surgical History / Comment(s): RIGHT HIP REPLACEMENT Past Anesthesia/Blood Transfusion Reactions: No Reported Reaction Past Psychological History: No Psychological Hx Reported Smoking Status: Current every day smoker - Past Family History Father Family Medical History: Myocardial Infarction (ID) Mother Family Medical History: Coronary Artery Disease (CAD) Daughter(s) Family Medical History: No Reported History Son(s) Family Medical History: No Reported History General Exam Limitations: no limitations General appearance: alert, in no apparent distress Head exam: Present: atraumatic, normocephalic Eye exam: Present: normal appearance, PERRL ENT exam: Present: normal exam Neck exam: Present: normal inspection. Absent: tenderness, meningismus Respiratory exam: Present: decreased breath sounds. Absent: respiratory distress, wheezes Cardiovascular Exam: Present: regular rate, normal rhythm GI/Abdominal exam: Present: soft. Absent: distended, tenderness Extremities exam: Present: normal inspection, normal capillary refill. Absent: pedal edema Back exam: Present: normal inspection, full ROM Neurological exam: Present: alert, oriented X3, CN II-XII intact, motor sensory deficit (Slight decrease in lead investigator strength right upper extremity, baseline) Psychiatric exam: Present: suicidal ideation Skin exam: Present: warm, dry, intact. 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 Patient denied chest pain. EKG shows ST segment depression and T-wave inversion in the lateral precordium. This appears unchanged from EKG in August 2016. Patient had quadruple bypass in August of this year. studies reveal normal initial troponin, creatinine 1.7, Baseline. Chest x-ray shows no acute findings. Patient remains asymptomatic while in the emergency department. Case is discussed with Dr. Villa, patient will be kept for telemetry, serial cardiac enzymes, and cardiology consult. - Lab Data Result diagrams: 01/26/17 13:25 01/26/17 13:25 Lab Results 01/26/17 01/26/17 01/26/17 Range/Units 13:25 13:25 13:25 WBC 7.8 (3.8-10.6) k/uL RBC 5.88 (4.30-5.90) m/uL Hgb 16.1 (13.0-17.5) gm/dL Hct 50.3 (39.0-53.0) % MCV 85.5 (80.0-100.0) fL MCH 27.3 (25.0-35.0) pg MCHC 32.0 (31.0-37.0) g/dL RDW 18.7 H (11.5-15.5) % Plt Count 210 (150-450) k/uL Neutrophils % 71 % Lymphocytes % 18 % Monocytes % 7 % Eosinophils % 2 % Basophils % 1 % Neutrophils # 5.5 (1.3-7.7) k/uL Lymphocytes # 1.4 (1.0-4.8) k/uL Monocytes # 0.5 (0-1.0) k/uL Eosinophils # 0.1 (0-0.7) k/uL Basophils # 0.1 (0-0.2) k/uL Anisocytosis Slight PT (9.0-12.0) sec INR (<1.2) APTT (22.0-30.0) sec Sodium 139 (137-145) mmol/L Potassium 5.1 (3.5-5.1) mmol/L Chloride 111 H (98-107) mmol/L Carbon Dioxide 18 L (22-30) mmol/L Anion Gap 10 mmol/L BUN 28 H (9-20) mg/dL Creatinine 1.70 H (0.66-1.25) mg/dL Est GFR (MDRD) Af Amer 50 (>60 ml/min/1.73 sqM) Est GFR (MDRD) Non-Af 41 (>60 ml/min/1.73 sqM) Glucose 140 H (74-99) mg/dL Calcium 9.6 (8.4-10.2) mg/dL Magnesium 1.9 (1.6-2.3) mg/dL Total Bilirubin 0.3 (0.2-1.3) mg/dL AST 18 (17-59) U/L ALT 31 (21-72) U/L Alkaline Phosphatase 90 (38-126) U/L Total Creatine Kinase 85 (55-170) U/L CK-MB (CK-2) 2.0 (0.0-2.4) ng/mL CK-MB (CK-2) Rel Index 2.4 Troponin I <0.012 (0.000-0.034) ng/mL NT-Pro-B Natriuret Pep pg/mL Total Protein 6.9 (6.3-8.2) g/dL Albumin 3.9 (3.5-5.0) g/dL 01/26/17 01/26/17 Range/Units 13:25 13:25 WBC (3.8-10.6) k/uL RBC (4.30-5.90) m/uL Hgb (13.0-17.5) gm/dL Hct (39.0-53.0) % MCV (80.0-100.0) fL MCH (25.0-35.0) pg MCHC (31.0-37.0) g/dL RDW (11.5-15.5) % Plt Count (150-450) k/uL Neutrophils % % Lymphocytes % % Monocytes % % Eosinophils % % Basophils % % Neutrophils # (1.3-7.7) k/uL Lymphocytes # (1.0-4.8) k/uL Monocytes # (0-1.0) k/uL Eosinophils # (0-0.7) k/uL Basophils # (0-0.2) k/uL Anisocytosis PT 10.2 (9.0-12.0) sec INR 1.0 (<1.2) APTT 26.9 (22.0-30.0) sec Sodium (137-145) mmol/L Potassium (3.5-5.1) mmol/L Chloride (98-107) mmol/L Carbon Dioxide (22-30) mmol/L Anion Gap mmol/L BUN (9-20) mg/dL Creatinine (0.66-1.25) mg/dL Est GFR (MDRD) Af Amer (>60 ml/min/1.73 sqM) Est GFR (MDRD) Non-Af (>60 ml/min/1.73 sqM) Glucose (74-99) mg/dL Calcium (8.4-10.2) mg/dL Magnesium (1.6-2.3) mg/dL Total Bilirubin (0.2-1.3) mg/dL AST (17-59) U/L ALT (21-72) U/L Alkaline Phosphatase (38-126) U/L Total Creatine Kinase (55-170) U/L CK-MB (CK-2) (0.0-2.4) ng/mL CK-MB (CK-2) Rel Index Troponin I (0.000-0.034) ng/mL NT-Pro-B Natriuret Pep 141 pg/mL Total Protein (6.3-8.2) g/dL Albumin (3.5-5.0) g/dL Disposition Clinical Impression: Acute electrocardiogram changes Disposition: ADMITTED IP TO THIS [facility] Condition: Stable Referrals: Ashok Hidalgo MD [Primary Care Provider] - 1-2 days Decision to Admit Reason: Admit from EC Decision Date: 01/26/17 Decision Time: 15:10
[2017-01-26 13:43] LABS: Anisocytosis Slight; Basophils # (A) 0.1 k/uL (0-0.2); Basophils % (A) 1 %; CHCM 31.9; Eosinophils # (A) 0.1 k/uL (0-0.7); Eosinophils % (A) 2 %; HCT 50.3 % (39.0-53.0); HDW 2.61; HGB 16.1 gm/dL (13.0-17.5); Luc # (Auto) 0.16; Luc % (Auto) 2; Lymphocytes # (A) 1.4 k/uL (1.0-4.8); Lymphocytes % (A) 18 %; MCH 27.3 pg (25.0-35.0); MCV 85.5 fL (80.0-100.0); Mean Platelet Volume 7.4; Monocytes # (A) 0.5 k/uL (0-1.0); Monocytes % (A) 7 %; Neutrophils # (A) 5.5 k/uL (1.3-7.7); Neutrophils % (A) 71 %; RBC 5.88 m/uL (4.30-5.90); RDW 18.7 % (11.5-15.5); WBC 7.8 k/uL (3.8-10.6); WBC (Perox) 7.75
[2017-01-26 13:48] LABS: Calcium 9.6 mg/dL (8.4-10.2); Magnesium 1.9 mg/dL (1.6-2.3); Potassium 5.1 mmol/L (3.5-5.1); Total Bilirubin 0.3 mg/dL (0.2-1.3); Total Protein 6.9 g/dL (6.3-8.2)
[2017-01-26 13:50] LABS: Partial Thromboplastin Time 26.9 sec (22.0-30.0); Prothrombin Time 10.2 sec (9.0-12.0)
--- NOTE | 2017-01-26 13:56 | XR ---
EXAMINATION TYPE: XR chest 2V DATE OF EXAM: 01/26/2017 COMPARISON: 09/15/1716 TECHNIQUE: PA and lateral views submitted. HISTORY: Chest pain FINDINGS: The lungs are clear and there is no pneumothorax, pleural effusion, or focal pneumonia. Postsurgica l changes needed. Arthropathy of the shoulders. Hypertrophic and degenerative change of the spine. IMPRESSION: 1. No acute process.
[2017-01-26 13:59] LABS: Creatine Kinase 85 U/L (55-170)
[2017-01-26 14:12] LABS: Troponin I <0.012 ng/mL (0.000-0.034)
[2017-01-26] MEDS ORDERED: ACETAMINOPHEN TAB 325 MG TAB PO PRN (15:10)
[2017-01-26] MEDS ORDERED: NALOXONE 0.4 MG/ML 1 ML VIAL IV PRN (15:10)
[2017-01-26] MEDS ORDERED: ONDANSETRON 4 MG/2 ML VIAL IVP PRN (15:10)
[2017-01-26] MEDS ORDERED: SODIUM CHLORIDE 0.9% 1,000 ML IV SCH (15:15)
[2017-01-26] MEDS ORDERED: IPRATROPIUM-ALBUTEROL 3 ML NEB INHALATION PRN (16:24)
[2017-01-26] MEDS ORDERED: NON-FORMULARY DRUG (Sildenafil Citrate [Viagra] 100 MG) PO PRN (16:24)
[2017-01-26 17:26] LABS: Glucose,Whole Blood 185 mg/dL (75-99)
[2017-01-26] MEDS: GEMFIBROZIL 600 MG TAB PO SCH (17:59)
[2017-01-26] MEDS: INSULIN LISPRO (humaLOG) 300 UNIT/3 ML VIAL SQ SCH (18:18)
[2017-01-26] MEDS: METOPROLOL TARTRATE 50 MG TAB PO SCH (19:55)
[2017-01-26] MEDS: SODIUM BICARBONATE TAB 650 MG TAB PO SCH (19:55)
[2017-01-26] MEDS: BUDESONIDE 0.5 MG/2 ML NEBU INHALATION SCH (20:32)
[2017-01-26 20:51] LABS: Creatine Kinase 71 U/L (55-170)
[2017-01-26 20:55] LABS: Glucose,Whole Blood 144 mg/dL (75-99)
[2017-01-26] MEDS ORDERED: INSULIN DETEMIR 100 UNIT/ML 10 ML VIAL SQ SCH (21:00)
[2017-01-26] MEDS ORDERED: ATORVASTATIN 40 MG TAB PO SCH (21:00)
[2017-01-26 21:05] LABS: Creatine Kinase MB 1.9 ng/mL (0.0-2.4); Troponin I <0.012 ng/mL (0.000-0.034)
[2017-01-27 02:04] LABS: Creatine Kinase MB 1.6 ng/mL (0.0-2.4); Troponin I 0.013 ng/mL (0.000-0.034)
[2017-01-27 05:50] LABS: Anisocytosis Slight; Basophils # (A) 0.1 k/uL (0-0.2); Basophils % (A) 1 %; CH 27.6; CHCM 31.3; Eosinophils # (A) 0.1 k/uL (0-0.7); Eosinophils % (A) 2 %; HCT 51.2 % (39.0-53.0); HDW 2.59; HGB 15.7 gm/dL (13.0-17.5); Hypochromasia Slight; Luc # (Auto) 0.18; Luc % (Auto) 2; Lymphocytes # (A) 1.8 k/uL (1.0-4.8); Lymphocytes % (A) 22 %; MCH 27.3 pg (25.0-35.0); MCHC 30.6 g/dL (31.0-37.0); MCV 89.1 fL (80.0-100.0); Mean Platelet Volume 7.5; Monocytes # (A) 0.6 k/uL (0-1.0); Monocytes % (A) 7 %; Neutrophils # (A) 5.3 k/uL (1.3-7.7); Neutrophils % (A) 66 %; RBC 5.75 m/uL (4.30-5.90); WBC 8.1 k/uL (3.8-10.6); WBC (Perox) 7.96
[2017-01-27 06:15] LABS: Calcium 9.2 mg/dL (8.4-10.2); Potassium 5.2 mmol/L (3.5-5.1); Total Bilirubin 0.4 mg/dL (0.2-1.3); Total Protein 6.4 g/dL (6.3-8.2)
[2017-01-27 07:04] LABS: Glucose,Whole Blood 89 mg/dL (75-99)
[2017-01-27] MEDS: BUDESONIDE 0.5 MG/2 ML NEBU INHALATION SCH (07:43)
[2017-01-27 08:25] VITALS: RESP 18
[2017-01-27] MEDS ORDERED: CLOPIDOGREL 75 MG TAB PO SCH (09:00)
[2017-01-27] MEDS ORDERED: ASPIRIN 81 MG PO SCH (09:00)
[2017-01-27] MEDS ORDERED: LISINOPRIL 10 MG TAB PO SCH (09:00)
[2017-01-27] MEDS ORDERED: CITALOPRAM HYDROBROMIDE 10 MG TAB PO SCH (09:00)
[2017-01-27] MEDS: INSULIN LISPRO (humaLOG) 300 UNIT/3 ML VIAL SQ SCH ×2 (10:01→12:35)
[2017-01-27] MEDS: SODIUM BICARBONATE TAB 650 MG TAB PO SCH (10:02)
[2017-01-27] MEDS: GEMFIBROZIL 600 MG TAB PO SCH (10:02)
[2017-01-27] MEDS ORDERED: amLODIPine 5 MG TAB PO SCH (10:45)
--- NOTE | 2017-01-27 11:33 | CONS ---
CONSULTATION Mr. Cerna is a 61-year-old male with a known history of coronary artery disease, status post coronary artery bypass grafting in August of 2016, that was done in the setting of an acute coronary artery syndrome and severe left main disease. He at that time received a OJEDA to LAD, saphenous vein graft to the PDA, obtuse marginal branch 2 and 3. He has been doing well. His level of activity has been improving. He was in the cardiac rehab yesterday and he was hooked to the monitor and there was a question of significant EKG changes. He was referred to the emergency room and subsequently admitted. The patient is feeling better overall. He denies any symptoms of chest pain. His breathing has been stable. He denies any dizziness, palpitation, or syncope. No PND, orthopnea, or peripheral edema. He has a prior history of stroke. His coronary risk factors are positive for diabetes, hyperlipidemia, hypertension, and peripheral vascular disease. MEDICATION: At home include insulin, Lopid 600 mg twice a day, Lopressor 50 mg twice a day, Zestril 10 mg daily, aspirin 81 mg daily, sodium bicarb, insulin, Plavix 75 mg daily, Pulmicort, and atorvastatin 40 mg daily. REVIEW OF SYSTEMS: RESPIRATORY SYSTEM: He has no recent wheezing. No cough. No history of obstructive lung disease. GI SYSTEM: No recent GI bleeding. No peptic ulcer disease. SYSTEM: No dysuria or hematuria. He has a history of chronic kidney disease. NERVOUS SYSTEM: He has a prior history of stroke. PHYSICAL EXAMINATION: A 61-year-old male, alert, oriented, in no apparent distress. Blood pressure running in the 140s to 150s with a heart rate in the 60s. LUNGS: Clear. HEAD: Normocephalic. EYES: Sclerae nonicteric. NECK: Good upstroke. No bruit. No jugular venous distention. LUNGS: Clear to auscultation. HEART: Regular rate and rhythm, S1, S2. No S3 with systolic murmur at the base, ejection type, no diastolic murmur. No rub. ABDOMEN: Soft, nontender. Positive bowel sounds, no organomegaly. EXTREMITIES: No edema. Intact distal pulses. LAB DATA: Revealed a BUN and creatinine 28 and 1.8, potassium 5.2, troponin of less than 0.012, 0.013. Hemoglobin of 16.1. EKG revealed a sinus mechanism, normal axis and intervals with T-wave inversion in the inferolateral leads that was noted in the past. IMPRESSION: 1. Status post coronary artery bypass grafting. 2. Abnormal EKG with no acute changes noted in the past. 3. Hypertension. 4. Hyperlipidemia. 5. Diabetes mellitus. 6. Chronic kidney disease. RECOMMENDATION: I will stop his gemfibrozil because of the issue with the renal function and the combination with the statin will increase the risk of rhabdomyolysis. I will decrease the dose of his Zestril to 5 mg daily, and I will add to his regimen amlodipine 5 mg daily to optimize his blood pressure control. From the cardiac standpoint, I would expect he should be able to be discharged home and follow as an outpatient. Thank you for this consult. Will follow with you. ISABEL / ANGY: [id number] /
[2017-01-27] MEDS: METOPROLOL TARTRATE 50 MG TAB PO SCH (11:37)
[2017-01-27 11:43] VITALS: BP 157/86; TEMP 98.3
[2017-01-27 11:56] LABS: Glucose,Whole Blood 172 mg/dL (75-99)
[2017-01-27 12:11] VITALS: PULSE 58
--- NOTE | 2017-01-27 17:03 | P.HPIM ---
History of Present Illness H&P Date: 01/27/17 Chief Complaint: Abnormal EKG This will serve both an H&P and discharge summary 61-year-old male patient of Dr. Hidalgo and Dr. Cowan with past medical history of CVA, PAD, CAD, COPD, chronic smoking, diabetes, chronic neuropathy and stage III kidney disease who was the hospital last in September 2015 for CVA. He had a non-STEMI involving the left main disease, underwent emergent CABG, secondary to triple vessel disease with severe left main disease , he had a OJEDA to the left intramyocardial left anterior descending artery a reverse greater saphenous vein graft connected to the aorta using the PAS- port device and connected distally to the right coronary artery after local endarterectomy, a reverse greater saphenous vein graft connected to the aorta using the PAS-port device and anastomosed sequentially to the second obtuse marginal coronary artery and a [id number] fashion and then the third obtuse marginal coronary artery in an end to side fashion. he was in the outpatient cardiac rehabilitation program and was soaked up on his cardiac lives anticipating his exercise regimen, they have noticed something abnormal with his EKG, patient was not having any symptoms at that time, they have decided to abort the exercise regimen that day and was subsequently recommended to be seen in the emergency room for evaluation. he denied have any chest pain or palpitations no lightheadedness no indigestion no edema. In the emergency room EKG shows asymmetric T-wave inversion in the inferolateral leads, no acute changes were noted, no arrhythmias. Patient was observed with cardiac troponins that was negative, telemetry monitoring failed to reveal any arrhythmias, agent was seen by cardiology and was discharged to home with medication changes to include the start of amlodipine, decrease Zestril to 5 mg daily, and this continued low. The Dr. Cowan cardiology was following him Review of Systems Constitutional: Reports as per HPI, Denies anorexia, Denies chills, Denies chronic headaches, Denies chronic pain, Denies daytime sleepiness, Denies fatigue, Denies fever, Denies lethargy, Denies malaise, Denies night sweats, Denies poor appetite, Denies sweats, Denies weakness, Denies weight gain, Denies weight loss Ears, nose, mouth and throat: Reports as per HPI, Denies ant. neck pain, Denies bleeding gums, Denies dental pain, Denies dysphagia, Denies epistaxis, Denies headache, Denies hoarseness, Denies mouth pain, Denies nasal congestion, Denies nasal discharge, Denies neck fullness/pressure, Denies neck lump, Denies nose pain, Denies odynophagia, Denies post-nasal drip, Denies sinus pain, Denies sinus pressure, Denies swelling in mouth, Denies swelling in throat, Denies sore throat, Denies vertigo, Denies voice changes Cardiovascular: Reports as per HPI, Denies chest pain, Denies claudication, Denies decreased exercise tolerance, Denies dyspnea on exertion, Denies edema, Denies high blood pressure, Denies irregular heart beat, Denies leg edema, Denies lightheadedness, Denies orthopnea, Denies palpitations, Denies paroxysmal nocturnal dyspnea, Denies phlebitis, Denies rapid heart beat, Denies shortness of breath, Denies syncope Respiratory: Reports as per HPI, Denies congestion, Denies cough, Denies cough with sputum, Denies dyspnea, Denies excessive sputum, Denies hemoptysis, Denies home oxygen, Denies pain, Denies pain on inspiration, Denies pleurisy, Denies respiratory infections, Denies sleep apnea, Denies snoring, Denies wheezing Gastrointestinal: Reports as per HPI, Denies abdominal pain, Denies belching, Denies bloating, Denies BRBPR, Denies change in bowel habits, Denies coffee ground emesis, Denies constipation, Denies diarrhea, Denies dyspepsia, Denies early satiety, Denies excessive gas, Denies heartburn, Denies hematemesis, Denies hematochezia, Denies indigestion, Denies jaundice, Denies lactose intolerance, Denies loss of appetite, Denies melena, Denies nausea, Denies vomiting Genitourinary: Reports as per HPI, Denies decreased libido, Denies difficulties fathering child, Denies discharge, Denies dysuria, Denies erectile dysfunction, Denies flank pain, Denies genital pain, Denies genital sores, Denies hematuria, Denies impotence, Denies incontinence, Denies kidney stones, Denies nocturia, Denies polyuria, Denies testicular lump, Denies testicular pain, Denies urinary frequency, Denies urinary hesitancy, Denies urinary retention Musculoskeletal: Reports as per HPI, Denies arm numbness/tingling, Denies atrophy, Denies fractures, Denies frequent falls, Denies gait dysfunction, Denies hot joints, Denies leg numbness/tingling, Denies limitation of motion, Denies loss of height, Denies low back pain, Denies morning stiffness, Denies muscle cramps, Denies muscle weakness, Denies myalgias, Denies neck pain, Denies neck stiffness, Denies prior amputations, Denies redness of joints, Denies shooting arm pain, Denies shooting leg pain Integumentary: Reports as per HPI, Denies acne, Denies boils, Denies brittle nails, Denies change in hair/nails, Denies color changes, Denies darkening of skin, Denies depigmentation, Denies dryness, Denies foot/leg ulcers, Denies growths, Denies hirsutism, Denies lesions, Denies onychomycosis, Denies pruritus , Denies rash, Denies sores, Denies striae, Denies unusual bruising, Denies wounds Neurological: Reports as per HPI, Denies aphasia, Denies ataxia, Denies balance difficulties, Denies burning pain, Denies change in mentation, Denies change in smell/taste, Denies change in speech, Denies confusion, Denies convulsions, Denies double vision, Denies gait dysfunction, Denies head injury, Denies headaches, Denies hearing difficulties, Denies lack of coordination, Denies loss of vision, Denies memory loss, Denies migraines, Denies motor disturbance, Denies numbness, Denies paralysis, Denies paresthesias, Denies seizures, Denies sensory deficit, Denies spasticity, Denies syncope, Denies tic, Denies tingling , Denies transient paralysis, Denies tremors, Denies vertigo, Denies weakness, Denies visual changes Psychiatric: Reports as per HPI Endocrine: Reports as per HPI Hematologic/Lymphatic: Reports as per HPI Allergic/Immunologic: Reports as per HPI Past Medical History Past Medical History: Coronary Artery Disease (CAD), Chest Pain / Angina, Heart Failure, COPD, CVA/TIA, Diabetes Mellitus, Hyperlipidemia, Hypertension, Osteoarthritis (OA), Prostate Disorder, Renal Disease, Supraventricular Tachycardia (SVT), Syncope, Vascular Disorder Additional Past Medical History / Comment(s): BACK PAIN , "cva 2013 and tia 2014 -has shorterm memory problmes, rt side still slightly weaker than lt, occ double vision", 2009 positional vertigo, tinnitus, ?neuropathy History of Any Multi-Drug Resistant Organisms: None Reported Past Surgical History: Appendectomy, Coronary Bypass/CABG, Heart Catheterization , Hernia Repair, Joint Replacement Additional Past Surgical History / Comment(s): RIGHT HIP REPLACEMENT quad cabg Past Anesthesia/Blood Transfusion Reactions: No Reported Reaction Smoking Status: Former smoker - Past Family History Father Family Medical History: Myocardial Infarction ([place]) Mother Family Medical History: Coronary Artery Disease (CAD) Daughter(s) Family Medical History: No Reported History Son(s) Family Medical History: No Reported History Medications and Allergies Home Medications Medication Instructions Recorded Confirmed Type Cholecalciferol [Vitamin D3] 1,000 unit PO DAILY 10/07/13 01/26/17 History Clopidogrel [Plavix] 75 mg PO DAILY #30 tab 10/09/13 01/26/17 Rx Atorvastatin [Lipitor] 40 mg PO DAILY tab 09/23/16 01/26/17 Rx Budesonide [Pulmicort] 0.5 mg INHALATION RT-BID neb 09/23/16 01/26/17 Rx Sodium Bicarbonate Tab 650 mg PO BID tab 09/23/16 01/26/17 Rx Aspirin [Adult Low Dose Aspirin EC] 81 mg PO DAILY 01/26/17 01/26/17 History Citalopram Hydrobromide [CeleXA] 10 mg PO DAILY 01/26/17 01/26/17 History INSULIN LISPRO (humaLOG) [humaLOG 20 unit SQ AC-TID 01/26/17 01/26/17 History (formulary)] Insulin Detemir [Levemir] 45 unit SQ HS 01/26/17 01/26/17 History Ipratropium-Albuterol Nebulize 3 ml INHALATION RT-BID PRN 01/26/17 01/26/17 History [Duoneb 0.5 mg-3 mg/3 ml Soln] Metoprolol Tartrate [Lopressor] 50 mg PO BID 01/26/17 01/26/17 History Sildenafil Citrate [Viagra] 100 mg PO DAILY PRN 01/26/17 01/26/17 History Lisinopril [Zestril] 5 mg PO DAILY #0 01/27/17 01/26/17 Rx amLODIPine [Norvasc] 5 mg PO DAILY #30 tab 01/27/17 Rx Allergies Allergy/AdvReac Type Severity Reaction Status Date / Time No Known Allergies Allergy Verified 01/26/17 14:09 Physical Exam Vitals: Vital Signs Temp Pulse Pulse Pulse Resp BP BP 01/27/17 08:00 98.4 F 58 L 66 18 159/86 01/27/17 04:00 58 L 16 01/27/17 03:57 98.0 F 60 16 144/74 01/27/17 00:00 98.3 F 66 16 161/86 01/26/17 23:52 58 L 16 01/26/17 20:29 01/26/17 20:00 75 16 01/26/17 19:10 98.1 F 71 16 166/81 01/26/17 16:00 97.6 F 65 64 18 174/89 01/26/17 15:32 98.0 F 01/26/17 15:07 66 18 166/83 01/26/17 13:41 68 18 166/80 01/26/17 13:37 65 01/26/17 13:15 98.0 F 69 20 159/87 Pulse Ox 01/27/17 08:00 96 01/27/17 04:00 01/27/17 03:57 96 01/27/17 00:00 96 01/26/17 23:52 01/26/17 20:29 97 01/26/17 20:00 01/26/17 19:10 97 01/26/17 16:00 94 L 01/26/17 15:32 01/26/17 15:07 93 L 01/26/17 13:41 97 01/26/17 13:37 01/26/17 13:15 96 Intake and Output 01/26/17 01/27/17 01/27/17 22:59 06:59 14:59 Other: Voiding Method Toilet Toilet Toilet # Voids 2 2 Weight 82.8 kg - Constitutional General appearance: cooperative, no acute distress - EENT Eyes: anicteric sclerae, EOMI, PERRLA, dentition normal, normal appearance ENT: hard of hearing, NA/AT, normal oropharynx - Neck Neck: no lymphadenopathy, normal ROM, no other, no rigidity, no stridor, no thyromegaly - Respiratory Respiratory: bilateral: CTA, negative: diminished, dullness, rales - Cardiovascular Rhythm: regular Heart sounds: normal: S1, S2 Abnormal Heart Sounds: no systolic murmur, no diastolic murmur, no rub, no S3 Gallop, no S4 Gallop, no click, no other - Gastrointestinal General gastrointestinal: normal bowel sounds, soft - Integumentary Integumentary: normal, normal turgor - Neurologic Neurologic: CNII-XII intact - Musculoskeletal Musculoskeletal: gait normal, strength equal bilaterally - Psychiatric Psychiatric: A&O x's 3, appropriate affect, intact judgment & insight Results CBC & Chem 7: 01/27/17 05:36 01/27/17 05:36 Labs: Abnormal Lab Results - Last 24 Hours (Table) 01/26/17 01/26/17 01/26/17 Range/Units 13:25 13:25 17:21 MCHC (31.0-37.0) g/dL RDW 18.7 H (11.5-15.5) % Potassium (3.5-5.1) mmol/L Chloride 111 H (98-107) mmol/L Carbon Dioxide 18 L (22-30) mmol/L BUN 28 H (9-20) mg/dL Creatinine 1.70 H (0.66-1.25) mg/dL Glucose 140 H (74-99) mg/dL POC Glucose (mg/dL) 185 H (75-99) mg/dL AST (17-59) U/L 01/26/17 01/27/17 01/27/17 Range/Units 20:52 05:36 05:36 MCHC 30.6 L (31.0-37.0) g/dL RDW 19.0 H (11.5-15.5) % Potassium 5.2 H (3.5-5.1) mmol/L Chloride 111 H (98-107) mmol/L Carbon Dioxide 19 L (22-30) mmol/L BUN 28 H (9-20) mg/dL Creatinine 1.80 H (0.66-1.25) mg/dL Glucose (74-99) mg/dL POC Glucose (mg/dL) 144 H (75-99) mg/dL AST 16 L (17-59) U/L Laboratory Results WBC 8.1 k/uL (3.8-10.6) 01/27/17 05:36 RBC 5.75 m/uL (4.30-5.90) 01/27/17 05:36 Hgb 15.7 gm/dL (13.0-17.5) 01/27/17 05:36 Hct 51.2 % (39.0-53.0) 01/27/17 05:36 MCV 89.1 fL (80.0-100.0) 01/27/17 05:36 MCH 27.3 pg (25.0-35.0) 01/27/17 05:36 MCHC 30.6 g/dL (31.0-37.0) L 01/27/17 05:36 RDW 19.0 % (11.5-15.5) H 01/27/17 05:36 Plt Count 198 k/uL (150-450) 01/27/17 05:36 Neutrophils % 66 % 01/27/17 05:36 Lymphocytes % 22 % 01/27/17 05:36 Monocytes % 7 % 01/27/17 05:36 Eosinophils % 2 % 01/27/17 05:36 Basophils % 1 % 01/27/17 05:36 Neutrophils # 5.3 k/uL (1.3-7.7) 01/27/17 05:36 Lymphocytes # 1.8 k/uL (1.0-4.8) 01/27/17 05:36 Monocytes # 0.6 k/uL (0-1.0) 01/27/17 05:36 Eosinophils # 0.1 k/uL (0-0.7) 01/27/17 05:36 Basophils # 0.1 k/uL (0-0.2) 01/27/17 05:36 Hypochromasia Slight 01/27/17 05:36 Anisocytosis Slight 01/27/17 05:36 PT 10.2 sec (9.0-12.0) 01/26/17 13:25 INR 1.0 (<1.2) 01/26/17 13:25 APTT 26.9 sec (22.0-30.0) 01/26/17 13:25 Sodium 139 mmol/L (137-145) 01/27/17 05:36 Potassium 5.2 mmol/L (3.5-5.1) H 01/27/17 05:36 Chloride 111 mmol/L (98-107) H 01/27/17 05:36 Carbon Dioxide 19 mmol/L (22-30) L 01/27/17 05:36 Anion Gap 9 mmol/L 01/27/17 05:36 BUN 28 mg/dL (9-20) H 01/27/17 05:36 Creatinine 1.80 mg/dL (0.66-1.25) H 01/27/17 05:36 Est GFR (MDRD) Af Amer 46 (>60 ml/min/1.73 sqM) 01/27/17 05:36 Est GFR (MDRD) Non-Af 38 (>60 ml/min/1.73 sqM) 01/27/17 05:36 Glucose 95 mg/dL (74-99) 01/27/17 05:36 POC Glucose (mg/dL) 172 mg/dL (75-99) H 01/27/17 11:53 POC Glu Manager Qa ID Luma Pisano 01/27/17 11:53 Calcium 9.2 mg/dL (8.4-10.2) 01/27/17 05:36 Magnesium 1.9 mg/dL (1.6-2.3) 01/26/17 13:25 Total Bilirubin 0.4 mg/dL (0.2-1.3) 01/27/17 05:36 AST 16 U/L (17-59) L 01/27/17 05:36 ALT 34 U/L (21-72) 01/27/17 05:36 Alkaline Phosphatase 70 U/L (38-126) 01/27/17 05:36 Total Creatine Kinase 71 U/L (55-170) 01/27/17 01:13 CK-MB (CK-2) 1.6 ng/mL (0.0-2.4) 01/27/17 01:13 CK-MB (CK-2) Rel Index 2.3 01/27/17 01:13 Troponin I 0.013 ng/mL (0.000-0.034) 01/27/17 01:13 NT-Pro-B Natriuret Pep 141 pg/mL 01/26/17 13:25 Total Protein 6.4 g/dL (6.3-8.2) 01/27/17 05:36 Albumin 3.5 g/dL (3.5-5.0) 01/27/17 05:36 Assessment and Plan Plan: 1. Abnormal EKG with asymmetric T-wave inversion in the inferolateral leads, no acute changes were made, this is chronic changes, no copies off EKG that was sent over from cardiac rehab, patient was asymptomatic the entire time, patient was cleared by cardiology on discharge patient is stable for discharge to home 2 history of non-STEMI with via left main disease three-vessel disease: Patient underwent emergent CABG last August 2016 . Continue to monitor the patient very closely. 3 Chronic kidney disease stage III: Stable We'll continue to monitor BUN and creatinine. 4 type 2 diabetes with episodic hypoglycemia. On Humalog 20 units 3 times a day and Levemir 45 units at bedtime units at bedtime along with sliding scale insulin. Monitor the patient very closely for hypoglycemia. 5 COPD asymptomatic: Continue albuterol when necessary Pulmicort maintenance twice a day 6 hyperlipidemia: Continue Lipitor 40 mg a day. Lopid discontinued as per cardiology 7 BPH: Continue to watch for any urinary retention. 8 chronic tobacco use and dependency. Quit in August 2016 9 history of CVA: Still with slight residual. 10 hypertension cardiovascular vascular disease: continue metoprolol and Zestril 5 mg decreased as per cardiology amlodipine 5 mg started 11. GI prophylaxis: Continue patient on pantoprazole 40 mg daily. 12. DVT prophylaxis: Patient be on heparin 5000 units continues twice a day. 13. History of Secondary Atrial fibrillation with RVR, paroxysmal atrial fibrillation. Noted postoperatively in August 2016, none currently CODE STATUS: Full code.
[2017-01-28] MEDS ORDERED: LISINOPRIL 5 MG TAB PO SCH (09:00)
== END 2017-01-27 12:35 | disposition home or self-care (01) ==
LOC: EC 13:13 → 3OBS 15:12
PROVIDERS: ADMIT Family Medicine; ATTEND Family Medicine
DX: R94.31 Abnormal electrocardiogram [ECG] [EKG] (principal); I13.10 Hypertensive heart and chronic kidney disease without heart failure, with stage 1 through stage 4 chronic kidney disease, or unspecified chronic kidney disease; E11.22 Type 2 diabetes mellitus with diabetic chronic kidney disease; N18.3 Chronic kidney disease, stage 3 (moderate); F17.200 Nicotine dependence, unspecified, uncomplicated; E11.649 Type 2 diabetes mellitus with hypoglycemia without coma; J44.9 Chronic obstructive pulmonary disease, unspecified; E78.5 Hyperlipidemia, unspecified; N40.0 Benign prostatic hyperplasia without lower urinary tract symptoms; M19.90 Unspecified osteoarthritis, unspecified site; I47.1 Supraventricular tachycardia; I73.9 Peripheral vascular disease, unspecified; I25.2 Old myocardial infarction; Z79.4 Long term (current) use of insulin; Z79.82 Long term (current) use of aspirin; Z79.02 Long term (current) use of antithrombotics/antiplatelets; Z79.51 Long term (current) use of inhaled steroids; Z79.899 Other long term (current) drug therapy; Z95.1 Presence of aortocoronary bypass graft; Z82.49 Family history of ischemic heart disease and other diseases of the circulatory system
CPT/HCPCS: 99285 ×2; 36415; 94760; 93005; 83880; 80053 ×2; 82550 ×2; 82553 ×2; 83735; 84484 ×2; 85025 ×2; 85610; 85730; 83036; 71020; G0378 ×2

== ENCOUNTER → 2017-05-04 | Outpatient (CLI) | payer MEDICARE ==
[2017-05-04 10:11] LABS: HGB 13.7 gm/dL (13.0-17.5); MCH 29.6 pg (25.0-35.0); MCHC 32.6 g/dL (31.0-37.0); MCV 90.9 fL (80.0-100.0); Mean Platelet Volume 6.6; Platelet Count 238 k/uL (150-450); RBC 4.62 m/uL (4.30-5.90); RDW 14.5 % (11.5-15.5); WBC 7.8 k/uL (3.8-10.6)
[2017-05-04 10:35] LABS: Appearance,Urine Clear (Clear); Bilirubin,Urine Negative (Negative); Blood,Urine Negative (Negative); Color,Urine Yellow; Glucose,Urine (UA) Negative (Negative); Ketones,Urine Negative (Negative); Leukocyte Esterase,Urine Negative (Negative); Mucus,Urine Rare /hpf; Nitrite,Urine Negative (Negative); PH, Urine 5.5 (5.0-8.0); Protein,Urine 2+ (Negative); RBC,Urine 1 /hpf (0-5); Specific Gravity,Urine 1.009 (1.001-1.035); Squamous Epithelial Cell,Urine <1 /hpf (0-4); Urobilinogen,Urine <2.0 mg/dL (<2.0); WBC,Urine 1 /hpf (0-5)
[2017-05-04 10:38] LABS: Albumin 3.9 g/dL (3.5-5.0); Calcium 9.5 mg/dL (8.4-10.2); Magnesium 1.8 mg/dL (1.6-2.3); Phosphorus 4.4 mg/dL (2.5-4.5); Potassium 5.6 mmol/L (3.5-5.1); Total Bilirubin 0.3 mg/dL (0.2-1.3); Total Protein 6.6 g/dL (6.3-8.2); Uric Acid 9.2 mg/dL (3.5-8.5)
[2017-05-04 15:04] LABS: Vitamin D 25 Hydroxy 14.2 ng/mL (30.0-100.0)
[2017-05-04 15:07] LABS: Collection Time,Urine 24 hrs; Total Volume 24 Hour,Urine 2000 mls (800-1800)
[2017-05-04 15:21] LABS: Total Protein 24 Hour,Urine 3120 mg/24hr (42.0-225.0)
[2017-05-04 16:00] LABS: Iron Saturation 26.45 (15.00-50.00)
[2017-05-04 17:01] LABS: Hemoglobin A1C 8.1 % (4.0-6.0)
[2017-05-04 17:35] LABS: DNA Double-Stranded NEGATIVE (NEGATIVE)
[2017-05-04 17:47] LABS: Parathyroid Hormone Intact 62.6 pg/mL (14.0-72.0)
[2017-05-05 15:18] LABS: C-ANCA <1:20 Titer (<1:20); P-ANCA <1:20 Titer (<1:20)
== END | disposition home or self-care (01) ==
LOC: LABWHC1 09:11
PROVIDERS: ATTEND Nurse Practitioner Family
DX: N17.9 Acute kidney failure, unspecified (principal); E21.3 Hyperparathyroidism, unspecified; E55.9 Vitamin D deficiency, unspecified; E11.9 Type 2 diabetes mellitus without complications; R80.9 Proteinuria, unspecified; D64.9 Anemia, unspecified; N39.0 Urinary tract infection, site not specified; E78.2 Mixed hyperlipidemia; M10.9 Gout, unspecified
CPT/HCPCS: 36415; 80053; 80061; 81001; 81050; 82306; 82728; 83036; 83516; 83540; 83550; 83735; 83883; 83970; 84100; 84156; 84166; 84550; 85027; 86038; 86160; 86162; 86225; 86255; 86334

== ENCOUNTER → 2017-05-07 | Outpatient (CLI) | payer MEDICARE | END | disposition home or self-care (01) | LOC: LABWHC1 08:52 | PROVIDERS: ATTEND Nurse Practitioner Family | DX: E87.6 Hypokalemia (principal) | CPT/HCPCS: 36415; 84132 ==

== ENCOUNTER → 2017-06-14 | Outpatient (CLI) | payer MEDICARE | END | disposition home or self-care (01) | LOC: LABWHC1 09:51 | PROVIDERS: ATTEND Nurse Practitioner Family | DX: E87.5 Hyperkalemia (principal) | CPT/HCPCS: 36415; 84132 ==

== ENCOUNTER → 2017-08-25 | Outpatient (CLI) | payer MEDICARE ==
[2017-08-25 10:35] LABS: HGB 14.5 gm/dL (13.0-17.5); MCH 29.3 pg (25.0-35.0); MCHC 32.9 g/dL (31.0-37.0); MCV 89.2 fL (80.0-100.0); Platelet Count 210 k/uL (150-450); RBC 4.94 m/uL (4.30-5.90); RDW 14.5 % (11.5-15.5); WBC 8.1 k/uL (3.8-10.6)
[2017-08-25 10:52] LABS: Calcium 9.5 mg/dL (8.4-10.2); Magnesium 1.8 mg/dL (1.6-2.3); Phosphorus 3.8 mg/dL (2.5-4.5); Potassium 5.1 mmol/L (3.5-5.1); Uric Acid 7.2 mg/dL (3.5-8.5)
[2017-08-25 14:52] LABS: Appearance,Urine Clear (Clear); Bilirubin,Urine Negative (Negative); Blood,Urine Negative (Negative); Color,Urine Yellow; Glucose,Urine (UA) Negative (Negative); Ketones,Urine Negative (Negative); Leukocyte Esterase,Urine Negative (Negative); Nitrite,Urine Negative (Negative); PH, Urine 5.5 (5.0-8.0); Protein,Urine 2+ (Negative); RBC,Urine 1 /hpf (0-5); Specific Gravity,Urine 1.012 (1.001-1.035); Urobilinogen,Urine <2.0 mg/dL (<2.0)
[2017-08-25 17:35] LABS: Iron Saturation 24.09 (15.00-50.00)
[2017-08-25 17:57] LABS: Vitamin D 25 Hydroxy 13.7 ng/mL (30.0-100.0)
[2017-08-25 18:10] LABS: Parathyroid Hormone Intact 24.4 pg/mL (14.0-72.0)
[2017-08-25 20:11] LABS: Hemoglobin A1C 7.5 % (4.0-6.0)
== END | disposition home or self-care (01) ==
LOC: LABWHC1 10:00
PROVIDERS: ATTEND Nurse Practitioner Family
DX: E11.65 Type 2 diabetes mellitus with hyperglycemia (principal); N17.9 Acute kidney failure, unspecified; E83.41 Hypermagnesemia; E55.9 Vitamin D deficiency, unspecified; D64.9 Anemia, unspecified; N39.0 Urinary tract infection, site not specified; E21.3 Hyperparathyroidism, unspecified; M10.9 Gout, unspecified
CPT/HCPCS: 36415; 80048; 81001; 82306; 82728; 83036; 83540; 83550; 83735; 83970; 84100; 84550; 85027

== ENCOUNTER → 2018-02-22 | Outpatient (CLI) | payer MEDICARE ==
[2018-02-22 17:47] LABS: ALT 29 U/L (10-49); AST 27 U/L (14-35); Albumin/Globulin Ratio 2.05 (1.20-2.10); Alkaline Phosphatase 95 U/L (41-126); Calcium 8.9 mg/dL (8.7-10.3); Carbon Dioxide 22.2 mmol/L (21.6-31.8); Chloride 109 mmol/L (96-109); Cholesterol 227 mg/dL (0-200); Globulin 1.9 g/dL (2.1-3.7); Glucose 164 mg/dL (70-110); Potassium 4.9 mmol/L (3.5-5.5); Sodium 138 mmol/L (135-145); Total Bilirubin 0.3 mg/dL (0.3-1.2); Total Protein 5.8 g/dL (6.2-8.2)
== END ==
LOC: LABWHC1 07:55
PROVIDERS: ATTEND Internal Medicine Interventional Cardiology
DX: E78.2 Mixed hyperlipidemia (principal)
CPT/HCPCS: 36415; 80053; 80061

== ENCOUNTER → 2018-02-28 | Outpatient (CLI) | payer MEDICARE ==
[2018-02-28 13:18] LABS: Basophils # (A) 0.1 k/uL (0-0.2); Basophils % (A) 1 %; Eosinophils # (A) 0.2 k/uL (0-0.7); Eosinophils % (A) 1 %; HCT 46.5 % (39.0-53.0); HGB 15.2 gm/dL (13.0-17.5); Lymphocytes # (A) 1.6 k/uL (1.0-4.8); Lymphocytes % (A) 14 %; MCH 28.9 pg (25.0-35.0); MCHC 32.8 g/dL (31.0-37.0); MCV 88.2 fL (80.0-100.0); Monocytes # (A) 0.6 k/uL (0-1.0); Monocytes % (A) 6 %; Neutrophils # (A) 8.9 k/uL (1.3-7.7); Neutrophils % (A) 77 %; Platelet Count 203 k/uL (150-450); RBC 5.27 m/uL (4.30-5.90); RDW 14.8 % (11.5-15.5); WBC 11.6 k/uL (3.8-10.6)
[2018-02-28 19:06] LABS: Iron Saturation 29.11 (15.00-50.00)
[2018-02-28 19:15] LABS: Vitamin D 25 Hydroxy 20.6 ng/mL (30.0-100.0)
[2018-02-28 19:21] LABS: Anion Gap 6.2 mmol/L (4.00-12.00); Calcium 9.4 mg/dL (8.7-10.3); Carbon Dioxide 25.8 mmol/L (21.6-31.8); Magnesium 1.6 mg/dL (1.5-2.4); Phosphorus 3.3 mg/dL (2.4-5.1); Potassium 4.7 mmol/L (3.5-5.5); Uric Acid 6.5 mg/dL (3.7-8.7)
[2018-02-28 20:20] LABS: Parathyroid Hormone Intact 28.8 pg/mL (14.0-72.0)
[2018-02-28 22:53] LABS: Hemoglobin A1C 7.1 % (4.0-6.0)
== END | disposition home or self-care (01) ==
LOC: LABWHC1 12:26
PROVIDERS: ATTEND Internal Medicine Nephrology
DX: E78.1 Pure hyperglyceridemia (principal); E55.9 Vitamin D deficiency, unspecified; N18.3 Chronic kidney disease, stage 3 (moderate); D63.1 Anemia in chronic kidney disease; M10.9 Gout, unspecified; N39.0 Urinary tract infection, site not specified
CPT/HCPCS: 36415; 80048; 82306; 82728; 83036; 83540; 83550; 83735; 83970; 84100; 84443; 84550; 85025

== ENCOUNTER → 2018-02-28 | Outpatient (CLI) | payer MEDICARE ==
[2018-03-01 13:04] LABS: Appearance,Urine Clear (Clear); Bacteria,Urine Many /hpf; Bilirubin,Urine Negative (Negative); Blood,Urine Negative (Negative); Color,Urine Yellow; Glucose,Urine (UA) Trace (Negative); Ketones,Urine Negative (Negative); Leukocyte Esterase,Urine Negative (Negative); Mucus,Urine Rare /hpf; Nitrite,Urine Negative (Negative); PH, Urine 6.5 (5.0-8.0); Protein,Urine 3+ (Negative); RBC,Urine 1 /hpf (0-5); Specific Gravity,Urine 1.016 (1.001-1.035); Squamous Epithelial Cell,Urine 1 /hpf (0-4); Urobilinogen,Urine <2.0 mg/dL (<2.0); WBC,Urine 3 /hpf (0-5)
== END | disposition home or self-care (01) ==
LOC: LABWHC1 09:58
PROVIDERS: ATTEND Internal Medicine Nephrology
DX: N18.3 Chronic kidney disease, stage 3 (moderate) (principal); N39.0 Urinary tract infection, site not specified
CPT/HCPCS: 81001

== ENCOUNTER → 2018-08-11 | Outpatient (CLI) | payer MEDICARE ==
[2018-08-11 16:38] LABS: Albumin 4.1 g/dL (3.80-4.90); Albumin/Globulin Ratio 2.16 (1.60-3.17); Anion Gap 7.6 mmol/L (4.00-12.00); BUN/Creat Ratio 22.5 Ratio (12.00-20.00); Carbon Dioxide 20.4 mmol/L (21.6-31.8); Globulin 1.9 g/dL (1.6-3.3); LDL Cholesterol,Calculated 81.6 mg/dL (0.0-131.0); Potassium 4.4 mmol/L (3.5-5.5); Total Bilirubin 0.3 mg/dL (0.3-1.2); VLDL Calculation 70.4 mg/dL (5.00-40.00)
[2018-08-11 16:47] LABS: T4, Free (Free Thyroxine) 1.1 ng/dL (0.80-1.80)
== END | disposition home or self-care (01) ==
LOC: LABWHC1 08:54
PROVIDERS: ATTEND Internal Medicine
DX: E55.9 Vitamin D deficiency, unspecified (principal); E11.65 Type 2 diabetes mellitus with hyperglycemia
CPT/HCPCS: 36415; 80053; 80061; 82043; 82306; 82570; 83036; 84439; 84443

== ENCOUNTER → 2018-08-19 | Outpatient (CLI) | payer MEDICARE ==
[2018-08-19 16:31] LABS: ALT 27 U/L (10-49); AST 21 U/L (14-35); Cholesterol 196 mg/dL (0-200)
== END | disposition home or self-care (01) ==
LOC: LABWHC1 08:54
PROVIDERS: ATTEND Nurse Practitioner Adult Health
DX: E78.2 Mixed hyperlipidemia (principal)
CPT/HCPCS: 36415; 80061; 83721; 84450; 84460

== ENCOUNTER → 2018-08-31 | Outpatient (CLI) | payer MEDICARE ==
[2018-08-31 08:36] LABS: HCT 44.3 % (39.0-53.0); HGB 14.2 gm/dL (13.0-17.5); MCH 28.1 pg (25.0-35.0); MCHC 32.1 g/dL (31.0-37.0); MCV 87.6 fL (80.0-100.0); Mean Platelet Volume 7.2; Platelet Count 249 k/uL (150-450); RBC 5.06 m/uL (4.30-5.90); RDW 14.8 % (11.5-15.5); WBC 9.6 k/uL (3.8-10.6)
[2018-08-31 09:15] LABS: Appearance,Urine Cloudy (Clear); Bacteria,Urine Moderate /hpf; Bilirubin,Urine Negative (Negative); Blood,Urine Small (Negative); Color,Urine Light Yellow; Glucose,Urine (UA) Negative (Negative); Ketones,Urine Negative (Negative); Leukocyte Esterase,Urine Large (Negative); Nitrite,Urine Negative (Negative); Protein,Urine 3+ (Negative); RBC,Urine 19 /hpf (0-5); Specific Gravity,Urine 1.017 (1.001-1.035); Squamous Epithelial Cell,Urine <1 /hpf (0-4); Urobilinogen,Urine <2.0 mg/dL (<2.0); WBC,Urine 125 /hpf (0-5)
[2018-08-31 09:21] LABS: INR 0.9 (<1.2); Partial Thromboplastin Time 27.6 sec (22.0-30.0); Prothrombin Time 10.2 sec (9.0-12.0)
[2018-08-31 11:54] LABS: Albumin 3.9 g/dL (3.5-5.0); Calcium 9.5 mg/dL (8.4-10.2); Potassium 5.5 mmol/L (3.5-5.1); Total Bilirubin 0.3 mg/dL (0.2-1.3); Total Protein 6.4 g/dL (6.3-8.2)
== END | disposition home or self-care (01) ==
LOC: LABPAT 07:29
PROVIDERS: ATTEND Orthopaedic Surgery
DX: Z01.818 Encounter for other preprocedural examination (principal); Z51.81 Encounter for therapeutic drug level monitoring; Z79.01 Long term (current) use of anticoagulants
CPT/HCPCS: 80053; 81001; 85027; 85610; 85730; 87070; 93005

== ENCOUNTER 2018-09-08 07:59 | Inpatient (IN) | payer MEDICARE ==
[~2018-09-08 07:59] MED LIST: HYDROmorphone 0.5 MG/0.5 ML SYRINGE IVP PRN; MIDAZOLAM 2 MG/2 ML VIAL IV PRN; ROPIVACAINE 246.25 MG, EPINEPHrine 0.5 MG, KETOROLAC 30 MG, cloNIDine HCL/PF 80 MCG, WA... MISCELLANE ONE; TRANEXAMIC ACID 1,000 MG in SODIUM CHLORIDE 0.9% 100 ML IVPB ONE; ceFAZolin IN SWFI 2 GM/20 ML SYRINGE IVP ONE
[2018-09-08 08:53] LABS: Glucose,Whole Blood 136 mg/dL (75-99)
[2018-09-08] MEDS: LACTATED RINGERS 1,000 ML IV SCH (08:53)
[2018-09-08] MEDS: ACETAMINOPHEN TAB 500 MG TAB PO ONE ×2 (08:57→13:44)
[2018-09-08] MEDS: ONDANSETRON 4 MG/2 ML VIAL IVP ONE ×2 (08:58→13:45)
[2018-09-08] MEDS: MELOXICAM 7.5 MG TAB PO ONE ×2 (08:58→13:44)
[2018-09-08] MEDS: DEXAMETHASONE SOD PHOSPHATE 10 MG/ML 1 ML VIAL IV ONE ×2 (08:58→13:45)
[2018-09-08] MEDS ORDERED: ePHEDrine SULFATE/0.9% NACL/PF 50 MG/5 ML SYRINGE IV ONE (09:16)
[2018-09-08] MEDS ORDERED: SODIUM CHLORIDE 0.9% 100 ML BAG ONE (09:16)
[2018-09-08] MEDS ORDERED: PHENYLEPHRINE-0.9% NACL SYG 1 MG/10 ML SYRINGE ONE (09:16)
[2018-09-08] MEDS ORDERED: MIDAZOLAM 2 MG/2 ML VIAL ONE (09:16)
[2018-09-08] MEDS ORDERED: HEPARIN SODIUM,PORCINE 10,000 UNIT/ML 1 ML VIAL ONE (09:16)
[2018-09-08] MEDS ORDERED: fentaNYL (PF) 50 MCG/ML 2 ML AMP ONE (09:16)
[2018-09-08] MEDS ORDERED: TRANEXAMIC ACID 1,000 MG/10 ML VIAL ONE (09:16)
[2018-09-08] MEDS ORDERED: LACTATED RINGERS 1,000 ML BAG IV ONE (09:16)
[2018-09-08] MEDS ORDERED: PROPOFOL 10 MG/ML 20 ML VIAL IV ONE (09:16)
[2018-09-08] MEDS ORDERED: ceFAZolin 3,000 MG in SODIUM CHLORIDE 0.9% IRRIGATIO 3,000 ML IRRIGATION ONE (10:02)
[2018-09-08] MEDS ORDERED: LACTATED RINGERS 1,000 ML IV ONE (10:10)
--- NOTE | 2018-09-08 10:48 | P.OP ---
Date of Procedure: 09/08/18 Preoperative Diagnosis: Severe osteoarthritis left hip Postoperative Diagnosis: Severe osteoarthritis left hip Procedure(s) Performed: Left total hip arthroplasty with a direct anterior approach Implants: Wall and nephew Polarstem size 3 standard Wall & Nephew R3, 3 hole acetabular shell, 52 mm Wall [employer] Nephew reflection 6.5 mm cancellus screw, 20 mm 2 Wall [employer] Nephew R3, XLPE 20 acetabular liner Wall & Nephew Oxinium femoral head 36 m, +0 All components were press-fit. The articulation is Oxinium on polyethylene. Anesthesia: spinal Surgeon: Андрей Vilchis Spool Worker #1: Tejal Spring Estimated Blood Loss (ml): 500 (211 mL returned with Cell Saver) Pathology: other (Femoral head) Condition: stable Disposition: PACU Indications for Procedure: After failure of conservative treatment we discussed the surgical and nonsurgical treatment options at length. Patient wishes to proceed with a total hip arthroplasty with a direct anterior approach. Complications specific to this procedure were discussed at length, including but not limited to infection, leg length discrepancy, dislocation, and nerve injury. Patient is aware of all these complications and informed consent was obtained Operative Findings: The operative findings are consistent with severe osteoarthritis of the left hip Description of Procedure: Patient was seen and evaluated in the preoperative area, consent was reviewed, and the surgical site was marked with a skin marker. Patient was then brought to the operating room and given prophylactic antibiotics intravenously. 1 g of Tranexamic acid was also given. A spinal anesthetic was administered by the anesthesia department. The patient was then placed on the Winn table with the bony prominences well-padded. The hip area was then prepped and draped in usual sterile fashion. A universal timeout was then performed, which confirmed the patient's name, surgical site, ALLERGIES, and procedure being performed. Next the incision site was located at 1 cm distal and 1 cm lateral to the anterior superior iliac spine. The skin and subcutaneous tissues were sharply incised. Incision was carefully dissected down to the fascia overlying the tensor fascia manuela muscle. This fascia was then incised in line with the incision. Next, using blunt finger dissection, the tensor fascia manuela muscle was dissected off its investing fascia. The muscle was then carefully retracted laterally with a cobra retractor over the lateral neck of the femur. Next, the circumflex vessels were identified and cauterized using the AquaMantis device. The anterior hip capsule was then exposed. The capsule was then opened and an inverted T fashion. Cobra retractors were then placed intracapsularly. The proximal femur was then vis ualized. The femoral neck was then osteotomized appropriate level above the lesser trochanter. Small amount of traction was placed with the Winn table. A small wedge of bone was then removed from the remaining femoral head. Next, using a corkscrew femoral head was easily removed from the acetabulum. On gross visual inspection, the femoral head had complete loss of articular cartilage in multi ple periarticular osteophytes. Attention was then turned to the acetabulum. the acetabulum was exposed and any remaining labrum was excised. Sequential reaming of the acetabulum was performed using fluoroscopic guidance. When the appropriate size was reached, a trial was then placed. The position and fit of the trial was checked with fluoroscopy. The trial was then removed. Then, using fluoroscopic guidance, the final implant was impacted at 20 of anteversion and 40 of abduction, and fully seated in the acetabulum. 2 screws were then placed in the acetabulum. Again fluoroscopy was used to check position of the screws. Next, the liner was then impacted, with a 20 elevated liner located in the anterior superior quadrant. Component locking was confirmed. Attention was then directed to the femur. With the aid of the Winn table, the femur was externally rotated to approximately 130, extended, and abducted under the opposite leg. A side hook was then placed under the proximal femur, and the side hook elevator was used to elevate the proximal femur. Retractors were then placed. A capsular release was performed, as well as a release of the conjoined tendon, which afforded excellent visualization of the proximal femur. Next, a box osteotome was used to lateralize the proximal femur. A roll handler was then used to locate the femoral canal. Sequential broaching was then performed with appropriate size which afforded excellent fixation in the proximal femur. A trial was then placed with appropriate head and neck, and the hip was gently reduced with the aid of the Winn table. Fluoroscopy was then used to check position of the components, as well as to ensure equal leg lengths. The hip was then gently dislocated and the trials were then removed. Final implants were then impacted and the hip was again reduced. Final fluoroscopic x-rays confirmed that the components were in anatomic position, as well as equal leg lengths. The hip was also taken through range of motion, and found to be stable. The hip was then copiously irrigated with antibiotic solution with pulsatile lavage. The hip was then irrigated with Irrisept solution. The soft tissues were then injected with a ropivacaine solution, which consisted of 246.25 mg of ropivacaine, 0.5 mg of epinephrine, 30 mg of Toradol, 80 g of clonidine, and 48.45 mL of sterile water, for a total of 100 mL of fluid injected. A second dose of 1 g of Tranexamic acid was also given. the fascia was then closed with 2-0 strata fix suture. The subcutaneous tissue was closed with 3-0 Vicryl. The subcuticular tissue was closed with 3-0 strata fix suture. The skin was then closed with Dermabond glue and a sterile silver dressing. The patient was then transferred to the recovery room in stable condi tion. The medical services assistant GLADYS Tam was required due to the complexity of surgery, and the need for skilled surgical attendant for positioning, draping, exposure, retraction, and closure of the wound.
--- NOTE | 2018-09-08 10:59 | FL ---
EXAMINATION TYPE: FL guidance operating room DATE OF EXAM: 09/08/2018 HISTORY: Flouroscopy time 47 seconds of fluoroscopy provided. IMPRESSION: 1. Fluoroscopy time.
--- NOTE | 2018-09-08 11:05 | XR ---
EXAMINATION TYPE: XR Hip Limited LT DATE OF EXAM: 09/08/2018 COMPARISON: NONE HISTORY: Postop TECHNIQUE: One view submitted. FINDINGS: There is postsurgical change in near anatomic alignment. There is soft tissue edema and emphysema. IMPRESSION: 1. Postoperative change. Appears in near-anatomic alignment.
[2018-09-08] MEDS ORDERED: MAGNESIUM HYDROXIDE 2,400 MG/10 ML CUP PO PRN (11:10)
[2018-09-08] MEDS ORDERED: HYDROmorphone 0.5 MG/0.5 ML SYRINGE IVP PRN ×2 (11:10)
[2018-09-08] MEDS ORDERED: HYDROcodone/APAP 5-325MG 1 EACH TAB PO PRN (11:10)
[2018-09-08] MEDS ORDERED: NALOXONE 0.4 MG/ML 1 ML VIAL IV PRN (11:10)
[2018-09-08] MEDS ORDERED: hydrOXYzine PAMOATE 25 MG CAP PO PRN (11:10)
[2018-09-08] MEDS ORDERED: ONDANSETRON 4 MG/2 ML VIAL IVP PRN (11:10)
[2018-09-08] MEDS ORDERED: HYDROmorphone 1 MG/ML 1 ML SYRINGE IVP PRN (11:10)
[2018-09-08] MEDS ORDERED: DIAZEPAM 5 MG TAB PO PRN (11:10)
[2018-09-08 11:37] LABS: Glucose,Whole Blood 195 mg/dL (75-99)
[2018-09-08] MEDS: SODIUM CHLORIDE 0.9% 1,000 ML IV SCH (13:46)
[2018-09-08 14:06] LABS: Glucose,Whole Blood 290 mg/dL (75-99)
[2018-09-08 14:18] VITALS: BMI 29.9
[2018-09-08] MEDS ORDERED: INSULIN ASPART (NovoLOG) 100 UNIT/ML VIAL SQ ONE (15:11)
[2018-09-08] MEDS: HYDROcodone/APAP 5-325MG 1 EACH TAB PO PRN ×2 (17:06→23:24)
[2018-09-08] MEDS: ceFAZolin IN SWFI 2 GM/20 ML SYRINGE IVP SCH (17:07)
[2018-09-08 17:33] LABS: Glucose,Whole Blood 194 mg/dL (75-99)
[2018-09-08] MEDS: INSULIN ASPART (NovoLOG) 100 UNIT/ML VIAL SQ SCH ×3 (17:33→20:37)
[2018-09-08 19:58] LABS: Glucose,Whole Blood 205 mg/dL (75-99)
[2018-09-08] MEDS: VARENICLINE 1 MG TAB PO SCH (20:35)
[2018-09-08] MEDS: ASPIRIN 81 MG PO SCH (20:35)
[2018-09-08] MEDS: SODIUM BICARBONATE TAB 650 MG TAB PO SCH (20:35)
[2018-09-08] MEDS: METOPROLOL TARTRATE 25 MG TAB PO SCH (20:35)
[2018-09-08] MEDS: INSULIN DETEMIR (LEVEMIR) 100 UNIT/ML SYR SQ SCH (20:37)
[2018-09-08] MEDS ORDERED: SENNOSIDES-DOCUSATE SODIUM 1 EACH TAB PO SCH (21:00)
[2018-09-08] MEDS ORDERED: amLODIPine 5 MG TAB PO SCH (21:00)
[2018-09-09] MEDS: SODIUM CHLORIDE 0.9% 1,000 ML IV SCH (02:54)
[2018-09-09] MEDS: ceFAZolin IN SWFI 2 GM/20 ML SYRINGE IVP SCH (02:54)
[2018-09-09] MEDS: LACTATED RINGERS 1,000 ML IV SCH (05:14)
[2018-09-09 07:00] LABS: Glucose,Whole Blood 136 mg/dL (75-99)
[2018-09-09] MEDS: HYDROcodone/APAP 5-325MG 1 EACH TAB PO PRN (08:16)
--- NOTE | 2018-09-09 08:45 | P.DS ---
Providers Date of admission: 09/08/18 07:59 Expected date of discharge: 09/09/18 Attending physician: Андрей Vilchis Consults: 09/08/18 11:10 Consult Physician Routine Consulting Provider: Ashok Hidalgo Reason/Comments: medical management and anticoagulation. Do you want consulting provider notified?: Yes Primary care physician: Ashok Hidalgo - Discharge Diagnosis(es) (1) Osteoarthritis of left hip Current Visit: Yes Status: Acute (2) S/P total hip arthroplasty Current Visit: Yes Status: Acute Hospital Course: This is a 62-year-old male with known history of degenerative arthritis of the left hip. The patient presents for evaluation. After discussion and consideration patient elects to proceed with total hip arthroplasty. The patient is seen preoperatively by Dr. Vilchis and medically cleared for surgery by their primary care physician. Patient is [facility] to [facility] on 09/08/2018 for total hip arthroplasty. The procedures performed without complication or sequelae. The patient is doing well postoperatively. Labs and vital signs are stable on day of discharge. On day of discharge patient's hip incision is healing well. There is minimal erythema. There is no drainage noted at this time. There is minimal soft tissue swelling to the hip and thigh. Patient has full foot and ankle motion without difficulty or pain. Calf is soft and nontender to palpation. Neurovascular status to the left lower extremity is intact. Patient is discharged home in good condition. Opioid start talking form is reviewed and signed at patient bedside. Please see med rec for accurate list of home medications. Plan - Discharge Summary Discharge Rx Participant: No New Discharge Prescriptions: New HYDROcodone/APAP 5-325MG [[place] 5-325] 1 - 2 tab PO Q6HR PRN #56 tab PRN Reason: Pain Sennosides [Senokot] 1 tab PO BID #60 tablet No Action Cholecalciferol [Vitamin D3 (25 Mcg = 1000 Iu)] 2,000 unit PO DAILY Clopidogrel [Plavix] 75 mg PO DAILY #30 tab Atorvastatin [Lipitor] 40 mg PO DAILY tab Sodium Bicarbonate Tab 650 mg PO BID tab Citalopram Hydrobromide [CeleXA] 20 mg PO QAM Sildenafil Citrate [Viagra] 100 mg PO DAILY PRN PRN Reason: SEXUAL ACTIVITY Metoprolol Tartrate [Lopressor] 25 mg PO BID Aspirin [Adult Low Dose Aspirin EC] 81 mg PO DAILY INSULIN LISPRO (humaLOG) [humaLOG] 15 unit SQ AC-BID Insulin Detemir (Levemir) [Levemir] 20 unit SQ BID amLODIPine [Norvasc] 5 mg PO HS Lisinopril [Zestril] 5 mg PO QAM Magnesium Oxide [Mag-Ox] 250 mg PO DAILY diphenhydrAMINE [Benadryl] 50 mg PO HS Fluticasone Nasal [place] [Flonase Nasal [place]] 2 spr EA NOSTRIL DAILY metFORMIN HCL [Glucophage] 500 mg PO BID Allopurinol [Zyloprim] 100 mg PO DAILY Varenicline Tartrate [Chantix Continuing Pack] 1 mg PO BID Turmeric Root Extract [Turmeric] 500 mg PO DAILY Fenofibrate Nanocrystallized [Fenofibrate] 145 mg PO DAILY Discharge Medication List Cholecalciferol [Vitamin D3 (25 Mcg = 1000 Iu)] 2,000 unit PO DAILY 10/07/13 [History] Clopidogrel [Plavix] 75 mg PO DAILY #30 tab 10/09/13 [Rx] Atorvastatin [Lipitor] 40 mg PO DAILY tab 09/23/16 [Rx] Sodium Bicarbonate Tab 650 mg PO BID tab 09/23/16 [Rx] Aspirin [Adult Low Dose Aspirin EC] 81 mg PO DAILY 01/26/17 [History] Citalopram Hydrobromide [CeleXA] 20 mg PO QAM 01/26/17 [History] INSULIN LISPRO (humaLOG) [humaLOG] 15 unit SQ AC-BID 01/26/17 [History] Insulin Detemir (Levemir) [Levemir] 20 unit SQ BID 01/26/17 [History] Metoprolol Tartrate [Lopressor] 25 mg PO BID 01/26/17 [History] Sildenafil Citrate [Viagra] 100 mg PO DAILY PRN 01/26/17 [History] Allopurinol [Zyloprim] 100 mg PO DAILY 09/01/18 [History] Fenofibrate Nanocrystallized [Fenofibrate] 145 mg PO DAILY 09/01/18 [History] Fluticasone Nasal [place] [Flonase Nasal [place]] 2 spr EA NOSTRIL DAILY 09/01/18 [History] Lisinopril [Zestril] 5 mg PO QAM 09/01/18 [History] Magnesium Oxide [Mag-Ox] 250 mg PO DAILY 09/01/18 [History] Turmeric Root Extract [Turmeric] 500 mg PO DAILY 09/01/18 [History] Varenicline Tartrate [Chantix Continuing Pack] 1 mg PO BID 09/01/18 [History] amLODIPine [Norvasc] 5 mg PO HS 09/01/18 [History] diphenhydrAMINE [Benadryl] 50 mg PO HS 09/01/18 [History] metFORMIN HCL [Glucophage] 500 mg PO BID 09/01/18 [History] HYDROcodone/APAP 5-325MG [[place] 5-325] 1 - 2 tab PO Q6HR PRN #56 tab 09/09/18 [Rx] Sennosides [Senokot] 1 tab PO BID #60 tablet 09/09/18 [Rx] Follow up Appointment(s)/Referral(s): Андрей Vilchis DO [Doctor of Osteopathic Medicine] - 2 Weeks Activity/Diet/Wound Care/Special Instructions: Weightbearing as tolerated with walker. Leave dressing intact. Dressing may be removed by home care nurse or by patient in 10 days. May shower with dressing on. Please follow-up with [facility] in 2 weeks and call with any questions or concerns, . Discharge Disposition: HOME WITH HOME HEALTH SERVICES
[2018-09-09 08:46] LABS: Basophils # (A) 0.1 k/uL (0-0.2); Basophils % (A) 0 %; Eosinophils # (A) 0.1 k/uL (0-0.7); Eosinophils % (A) 0 %; HCT 37.9 % (39.0-53.0); HGB 12.1 gm/dL (13.0-17.5); Lymphocytes # (A) 1.9 k/uL (1.0-4.8); Lymphocytes % (A) 11 %; MCHC 31.9 g/dL (31.0-37.0); MCV 87.7 fL (80.0-100.0); Mean Platelet Volume 7.3; Monocytes # (A) 0.8 k/uL (0-1.0); Monocytes % (A) 5 %; Neutrophils # (A) 14.3 k/uL (1.3-7.7); Neutrophils % (A) 83 %; Platelet Count 235 k/uL (150-450); RBC 4.32 m/uL (4.30-5.90); RDW 15.5 % (11.5-15.5); WBC 17.3 k/uL (3.8-10.6)
[2018-09-09] MEDS ORDERED: LISINOPRIL 5 MG TAB PO SCH (09:00)
[2018-09-09] MEDS ORDERED: FENOFIBRATE 160 MG TAB PO SCH (09:00)
[2018-09-09] MEDS ORDERED: CLOPIDOGREL 75 MG TAB PO SCH (09:00)
[2018-09-09] MEDS ORDERED: ALLOPURINOL 100 MG TAB PO SCH (09:00)
[2018-09-09] MEDS ORDERED: FLUTICASONE 50MCG/SPRAY NASAL 16GM EA NOSTRIL SCH (09:00)
[2018-09-09] MEDS ORDERED: ATORVASTATIN 40 MG TAB PO SCH (09:00)
[2018-09-09] MEDS ORDERED: CITALOPRAM HYDROBROMIDE 20 MG TAB PO SCH (09:00)
[2018-09-09] MEDS: METOPROLOL TARTRATE 25 MG TAB PO SCH (10:43)
[2018-09-09] MEDS: SODIUM BICARBONATE TAB 650 MG TAB PO SCH (10:43)
[2018-09-09] MEDS: VARENICLINE 1 MG TAB PO SCH (10:44)
[2018-09-09] MEDS: ASPIRIN 81 MG PO SCH (10:44)
[2018-09-09] MEDS: INSULIN ASPART (NovoLOG) 100 UNIT/ML VIAL SQ SCH ×2 (10:45→10:46)
[2018-09-09] MEDS: INSULIN DETEMIR (LEVEMIR) 100 UNIT/ML SYR SQ SCH (10:47)
[2018-09-09 14:09] VITALS: BP 117/70; PULSE 74; RESP 16; TEMP 97.9
--- NOTE | 2018-09-09 14:25 | P.CONS ---
History of Present Illness - Reason for Consult Consult date: 09/09/18 Medical management - History of Present Illness This is a 62-year-old male patient of Dr. Hidalgo and Dr. Cowan with past medical history of CVA, PAD, CAD, COPD, chronic smoking, diabetes, chronic neuropathy and stage III kidney disease who was the hospital last in September 2015 for CVA. He had a non-STEMI involving the left main disease, underwent emergent CABG, secondary to triple vessel disease with severe left main disease, he had a OJEDA to the left intramyocardial left anterior descending artery a reverse gr eater saphenous vein graft connected to the aorta using the PAS-port device and connected distally to the right coronary artery after local endarterectomy, a reverse greater saphenous vein graft connected to the aorta using the PAS-port device and anastomosed sequentially to the second obtuse marginal coronary artery and a [id number] fashion and then the third obtuse marginal coronary artery in an end to side fashion. Patient has been brought into the hospital for care of Dr. Vilchis status post left hip arthroplasty, anterior approach. Patient gives history that he was treated for UTI and is to complete his antibiotics after discharge. He denies having any dysuria, no fever, no chills, no back pain. No rashes, no cough, no abdominal pain. He does complain of sciatic pain which is chronic. Patient is scheduled for discharge home today. Review of Systems All systems: negative Constitutional: Denies anorexia, Denies chills, Denies fatigue, Denies fever, Denies lethargy, Denies malaise, Denies poor appetite, Denies weakness, Denies weight loss Eyes: denies blurred vision, denies pain Ears, nose, mouth and throat: Denies dental pain, Denies dysphagia, Denies hea dache, Denies sore throat, Denies vertigo Cardiovascular: Denies chest pain, Denies decreased exercise tolerance, Denies dyspnea on exertion, Denies edema, Denies leg edema, Denies lightheadedness, Denies shortness of breath, Denies syncope Respiratory: Denies cough, Denies cough with sputum, Denies dyspnea, Denies excessive sputum, Denies hemoptysis, Denies home oxygen, Denies sleep apnea Gastrointestinal: Denies abdominal pain, Denies diarrhea, Denies loss of appetite, Denies melena, Denies nausea, Denies vomiting Genitourinary: Denies dysuria, Denies urinary frequency Musculoskeletal: Denies frequent falls, Denies gait dysfunction, Denies muscle weakness, Denies myalgias Integumentary: Reports wounds, Denies pruritus, Denies rash Neurological: Denies aphasia, Denies change in mentation, Denies change in speech, Denies numbness, Denies seizures, Denies weakness Psychiatric: Denies anxiety, Denies depression Endocrine: Denies fatigue, Denies weight change Past Medical History Past Medical History: Coronary Artery Disease (CAD), Chest Pain / Angina, Heart Failure, COPD, CVA/TIA, Diabetes Mellitus, GERD/Reflux, Hearing Disorder / Deafness, Hyperlipidemia, Hypertension, Osteoarthritis (OA), Prostate Disorder, Renal Disease, Sleep Apnea/CPAP/BIPAP, Supraventricular Tachycardia (SVT), Vascular Disorder Additional Past Medical History / Comment(s): Left hip pain. "CVA 2013, TIA 2014 with residual short term memory problems, right side still slightly weaker than left, occ double vision". Positional vertigo, tinnitus, ?neuropathy. "Kidney function tests aren't good." No CPAP use. Wears Continuous Glucose Monitor. History of Any Multi-Drug Resistant Organisms: None Reported Past Surgical History: Appendectomy, Coronary Bypass/CABG, Heart Catheterization, Hernia Repair, Joint Replacement Additional Past Surgical History / Comment(s): RIGHT HIP REPLACEMENT 2002. Left hip arthroplasty anterior approach 09/09/2018. Quadruple Bypass . Past Anesthesia/Blood Transfusion Reactions: No Reported Reaction Past Psychological History: Anxiety, Depression Smoking Status: Former smoker Past Alcohol Use History: None Reported Additional Past Alcohol Use History / Comment(s): Started smoking in 1976 and quit smoking 3 weeks ago, smoked 2 2 packs per day for 40 years most recently has been smoking 2 small cigars daily. He denies any alcohol use or abuse. He does not use a nebulizer, oxygen. He does have a CPAP. Past Drug Use History: None Reported Additional Drug Use History / Comment(s): stopped smoking 2013 - Past Family History Father Family Medical History: Myocardial Infarction ([place]) Mother Family Medical History: Coronary Artery Disease (CAD) Daughter(s) Family Medical History: No Reported History Son(s) Family Medical History: No Reported History Medications and Allergies Home Medications Medication Instructions Recorded Confirmed Type Cholecalciferol [Vitamin D3 (25 2,000 unit PO DAILY 10/07/13 09/08/18 History Mcg = 1000 Iu)] Clopidogrel [Plavix] 75 mg PO DAILY #30 tab 10/09/13 09/08/18 Rx Atorvastatin [Lipitor] 40 mg PO DAILY tab 09/23/16 09/08/18 Rx Sodium Bicarbonate Tab 650 mg PO BID tab 09/23/16 09/08/18 Rx Aspirin [Adult Low Dose Aspirin EC] 81 mg PO DAILY 01/26/17 09/08/18 History Citalopram Hydrobromide [CeleXA] 20 mg PO QAM 01/26/17 09/08/18 History INSULIN LISPRO (humaLOG) [humaLOG] 15 unit SQ AC-BID 01/26/17 09/08/18 History Insulin Detemir (Levemir) [Levemir] 20 unit SQ BID 01/26/17 09/08/18 History Metoprolol Tartrate [Lopressor] 25 mg PO BID 01/26/17 09/08/18 History Sildenafil Citrate [Viagra] 100 mg PO DAILY PRN 01/26/17 09/08/18 History Allopurinol [Zyloprim] 100 mg PO DAILY 09/01/18 09/08/18 History Fenofibrate Nanocrystallized 145 mg PO DAILY 09/01/18 09/08/18 History [Fenofibrate] Fluticasone Nasal [place] [Flonase 2 spr EA NOSTRIL DAILY 09/01/18 09/08/18 History Nasal [place]] Lisinopril [Zestril] 5 mg PO QAM 09/01/18 09/08/18 History Magnesium Oxide [Mag-Ox] 250 mg PO DAILY 09/01/18 09/08/18 History Turmeric Root Extract [Turmeric] 500 mg PO DAILY 09/01/18 09/08/18 History Varenicline Tartrate [Chantix 1 mg PO BID 09/01/18 09/08/18 History Continuing Pack] amLODIPine [Norvasc] 5 mg PO HS 09/01/18 09/08/18 History diphenhydrAMINE [Benadryl] 50 mg PO HS 09/01/18 09/08/18 History metFORMIN HCL [Glucophage] 500 mg PO BID 09/01/18 09/08/18 History Aspirin [Adult Low Dose Aspirin EC] 81 mg PO BID 30 Days #60 tablet. 09/09/18 Rx HYDROcodone/APAP 5-325MG [[place] 1 - 2 tab PO Q6HR PRN #56 tab 09/09/18 Rx 5-325] Sennosides [Senokot] 1 tab PO BID #60 tablet 09/09/18 Rx Allergies Allergy/AdvReac Type Severity Reaction Status Date / Time No Known Allergies Allergy Verified 09/08/18 14:15 Physical Exam Vitals: Vital Signs Temp Pulse Pulse Resp BP BP Pulse Ox 09/09/18 07:00 97.8 F 79 14 116/80 98 09/09/18 01:46 97.7 F 84 17 136/64 96 09/08/18 18:53 98.9 F 95 18 122/79 97 09/08/18 14:54 18 09/08/18 14:00 98.4 F 91 15 145/77 96 09/08/18 13:30 89 16 132/72 96 09/08/18 13:15 91 16 135/65 96 09/08/18 12:45 79 16 138/70 96 09/08/18 12:30 70 16 133/62 94 L 09/08/18 12:15 80 16 142/68 92 L 09/08/18 12:00 75 16 136/64 93 L 09/08/18 11:45 69 16 128/60 95 09/08/18 11:30 68 16 110/57 95 09/08/18 11:15 70 15 116/58 96 09/08/18 11:09 97.1 F L 72 12 116/59 96 Intake and Output 09/08/18 09/09/18 09/09/18 22:59 06:59 14:59 Intake Total 762 Output Total 300 600 Balance -300 162 Intake: Oral 762 Output: Urine 300 600 Other: # Voids 1 1 Gen: This is a 62-year-old male. He is sitting up in bed and appears to be comfortable and in no acute distress. HEENT: Head is atraumatic, normocephalic. Pupils equal, round. Sclerae is anicteric. NECK: Supple. No JVD. No lymphadenopathy. No thyromegaly. LUNGS: Clear to auscultation. No wheezes or rhonchi. No intercostal retractions. HEART: Regular rate and rhythm. No murmur. ABDOMEN: Soft. Bowel sounds are present. No masses. No tenderness. EXTREMITIES: No pedal edema. No calf tenderness. Small dressing in place to the left hip anterior with no breakthrough bleeding or drainage. NEUROLOGICAL: Patient is awake, alert and oriented x3. Cranial nerves 2 through 12 are grossly intact. Results CBC & Chem 7: 09/09/18 08:06 09/08/18 08:48 Labs: Abnormal Lab Results - Last 24 Hours (Table) 09/08/18 09/08/18 09/08/18 Range/Units 11:26 14:03 17:31 WBC (3.8-10.6) k/uL Hgb (13.0-17.5) gm/dL Hct (39.0-53.0) % Neutrophils # (1.3-7.7) k/uL POC Glucose (mg/dL) 195 H 290 H 194 H (75-99) mg/dL 09/08/18 09/09/18 09/09/18 Range/Units 19:57 06:56 08:06 WBC 17.3 H (3.8-10.6) k/uL Hgb 12.1 L (13.0-17.5) gm/dL Hct 37.9 L (39.0-53.0) % Neutrophils # 14.3 H (1.3-7.7) k/uL POC Glucose (mg/dL) 205 H 136 H (75-99) mg/dL Assessment and Plan Plan: 1. Osteoarthritis left hip status post left total hip arthroplasty, anterior approach. Patient is been cleared for discharge. DVT prophylaxis is aspirin 81 mg twice daily. Continue current pain management. PT. 2. Hypertension. Continue Lopressor 25 mg twice daily, lisinopril 5 mg daily, amlodipine 5 mg at bedtime. 3. Hyperlipidemia. Continue atorvastatin. 4. Gout. Continue allopurinol. 5. Diabetes mellitus type 2. Continue metformin 500 mg twice daily, Levemir 20 units twice daily, scheduled Humalog 15 units before meals. 6. History of coronary artery disease. Continue Plavix. 7. Tobacco use and dependence. Continue Chantix. 8. Recurrent depression. Continue Celexa 20 mg daily. Discharge plan: home Impression and plan of care have been directed as dictated by the signing physician. Lizeth Perea nurse practitioner acting as scribe for signing physician.
== END 2018-09-09 14:41 | disposition home health service (06) | DRG 470 ==
LOC: 2ORMAIN 07:59 → 4SSUR 13:38
PROVIDERS: ADMIT Orthopaedic Surgery; ATTEND Orthopaedic Surgery
PROC: 30233N0 Transfusion of Autologous Red Blood Cells into Peripheral Vein, Percutaneous Approach (ICD-10-PCS; 2018-09-08)
PROC: 0SRB06A Replacement of Left Hip Joint with Oxidized Zirconium on Polyethylene Synthetic Substitute, Uncemented, Open Approach (ICD-10-PCS; principal; 2018-09-08 09:15)
DX: M16.12 Unilateral primary osteoarthritis, left hip (principal); F33.9 Major depressive disorder, recurrent, unspecified; E11.40 Type 2 diabetes mellitus with diabetic neuropathy, unspecified; N18.3 Chronic kidney disease, stage 3 (moderate); E11.22 Type 2 diabetes mellitus with diabetic chronic kidney disease; E66.9 Obesity, unspecified; Z68.30 Body mass index [BMI] 30.0-30.9, adult; I13.10 Hypertensive heart and chronic kidney disease without heart failure, with stage 1 through stage 4 chronic kidney disease, or unspecified chronic kidney disease; I50.9 Heart failure, unspecified; J44.9 Chronic obstructive pulmonary disease, unspecified; I34.0 Nonrheumatic mitral (valve) insufficiency; M54.30 Sciatica, unspecified side; E78.5 Hyperlipidemia, unspecified; I25.10 Atherosclerotic heart disease of native coronary artery without angina pectoris; G47.30 Sleep apnea, unspecified; F41.9 Anxiety disorder, unspecified; K21.9 Gastro-esophageal reflux disease without esophagitis; I25.2 Old myocardial infarction; H91.90 Unspecified hearing loss, unspecified ear; G47.00 Insomnia, unspecified; E78.00 Pure hypercholesterolemia, unspecified; N42.9 Disorder of prostate, unspecified; M10.9 Gout, unspecified; Z79.82 Long term (current) use of aspirin; Z79.02 Long term (current) use of antithrombotics/antiplatelets; Z79.4 Long term (current) use of insulin; Z79.899 Other long term (current) drug therapy; Z96.641 Presence of right artificial hip joint; Z87.891 Personal history of nicotine dependence; Z99.89 Dependence on other enabling machines and devices; Z86.73 Personal history of transient ischemic attack (TIA), and cerebral infarction without residual deficits; Z95.1 Presence of aortocoronary bypass graft; Z87.440 Personal history of urinary (tract) infections; Z86.79 Personal history of other diseases of the circulatory system; Z98.890 Other specified postprocedural states; Z82.49 Family history of ischemic heart disease and other diseases of the circulatory system
CPT/HCPCS: 73501; 84132; 85025; 86850; 86891; 86900; 86901; 88300

== ENCOUNTER → 2018-10-24 | Outpatient (CLI) | payer MEDICARE ==
[2018-10-24 12:32] LABS: Basophils # (A) 0.1 k/uL (0-0.2); Basophils % (A) 1 %; Eosinophils # (A) 0.1 k/uL (0-0.7); Eosinophils % (A) 1 %; HCT 41.6 % (39.0-53.0); HGB 12.9 gm/dL (13.0-17.5); Hypochromasia Slight; Lymphocytes # (A) 1.4 k/uL (1.0-4.8); Lymphocytes % (A) 14 %; MCH 28.7 pg (25.0-35.0); MCHC 30.9 g/dL (31.0-37.0); Mean Platelet Volume 7.1; Monocytes # (A) 0.6 k/uL (0-1.0); Monocytes % (A) 6 %; Neutrophils # (A) 7.3 k/uL (1.3-7.7); Neutrophils % (A) 76 %; Platelet Count 308 k/uL (150-450); RBC 4.48 m/uL (4.30-5.90); RDW 14.6 % (11.5-15.5); WBC 9.6 k/uL (3.8-10.6)
[2018-10-24 13:19] LABS: MCV 92.8 fL (80.0-100.0)
[2018-10-24 15:58] LABS: Appearance,Urine Clear (Clear); Bilirubin,Urine Negative (Negative); Blood,Urine Negative (Negative); Color,Urine Yellow; Glucose,Urine (UA) 3+ (Negative); Ketones,Urine Negative (Negative); Leukocyte Esterase,Urine Negative (Negative); Nitrite,Urine Negative (Negative); Protein,Urine 3+ (Negative); RBC,Urine 1 /hpf (0-5); Specific Gravity,Urine 1.019 (1.001-1.035); Squamous Epithelial Cell,Urine 1 /hpf (0-4); Urobilinogen,Urine <2.0 mg/dL (<2.0); WBC,Urine 2 /hpf (0-5)
[2018-10-24 17:10] LABS: Iron Saturation 18.75 (15.00-50.00)
[2018-10-24 17:44] LABS: Anion Gap 7.8 mmol/L (4.00-12.00); BUN/Creat Ratio 16.47 Ratio (12.00-20.00); Calcium 9.4 mg/dL (8.7-10.3); Carbon Dioxide 23.2 mmol/L (21.6-31.8); Magnesium 1.7 mg/dL (1.5-2.4); Phosphorus 3.3 mg/dL (2.4-5.1); Potassium 5.4 mmol/L (3.5-5.5); Uric Acid 6.1 mg/dL (3.7-8.7)
== END | disposition home or self-care (01) ==
LOC: LABWHC1 09:51
PROVIDERS: ATTEND Internal Medicine Nephrology
DX: E55.9 Vitamin D deficiency, unspecified (principal); N18.3 Chronic kidney disease, stage 3 (moderate); D63.1 Anemia in chronic kidney disease; N39.0 Urinary tract infection, site not specified; M10.9 Gout, unspecified
CPT/HCPCS: 36415; 80048; 81001; 82728; 83540; 83550; 83735; 83970; 84100; 84550; 85025

== ENCOUNTER → 2019-02-24 | Outpatient (CLI) | payer MEDICARE ==
[2019-02-24 13:26] LABS: Basophils # (A) 0.1 k/uL (0-0.2); Basophils % (A) 1 %; Eosinophils # (A) 0.2 k/uL (0-0.7); Eosinophils % (A) 2 %; HCT 44.6 % (39.0-53.0); HGB 14.1 gm/dL (13.0-17.5); Lymphocytes # (A) 1.7 k/uL (1.0-4.8); Lymphocytes % (A) 15 %; MCH 27.9 pg (25.0-35.0); MCHC 31.6 g/dL (31.0-37.0); MCV 88.5 fL (80.0-100.0); Mean Platelet Volume 6.6; Monocytes # (A) 0.7 k/uL (0-1.0); Monocytes % (A) 6 %; Neutrophils % (A) 76 %; Platelet Count 236 k/uL (150-450); RBC 5.04 m/uL (4.30-5.90); RDW 14.6 % (11.5-15.5); WBC 11.9 k/uL (3.8-10.6)
[2019-02-24 13:27] LABS: Appearance,Urine Clear (Clear); Bilirubin,Urine Negative (Negative); Blood,Urine Trace (Negative); Color,Urine Yellow; Glucose,Urine (UA) Trace (Negative); Ketones,Urine Negative (Negative); Leukocyte Esterase,Urine Negative (Negative); Mucus,Urine Rare /hpf; Nitrite,Urine Negative (Negative); PH, Urine 6.5 (5.0-8.0); Protein,Urine 3+ (Negative); RBC,Urine 3 /hpf (0-5); Specific Gravity,Urine 1.019 (1.001-1.035); Squamous Epithelial Cell,Urine <1 /hpf (0-4); Urobilinogen,Urine <2.0 mg/dL (<2.0); WBC,Urine 1 /hpf (0-5)
[2019-02-24 18:55] LABS: % Iron Saturation 26.79 (15.00-50.00); African American GFR (CKD) 39.4 (60.0-200.0); Anion Gap 5.9 mmol/L (4.00-12.00); BUN/Creat Ratio 16.5 Ratio (12.00-20.00); Calcium 9.2 mg/dL (8.7-10.3); Carbon Dioxide 28.1 mmol/L (21.6-31.8); Magnesium 1.8 mg/dL (1.5-2.4); Phosphorus 3.8 mg/dL (2.4-5.1); Potassium 4.6 mmol/L (3.5-5.5); Uric Acid 5.7 mg/dL (3.7-8.7)
[2019-02-24 19:03] LABS: Ferritin 91.5 ng/mL (22.0-322.0)
== END | disposition home or self-care (01) ==
LOC: LABWHC1 13:05
PROVIDERS: ATTEND Nurse Practitioner Family
DX: N18.3 Chronic kidney disease, stage 3 (moderate) (principal); D63.1 Anemia in chronic kidney disease; E55.9 Vitamin D deficiency, unspecified; M10.9 Gout, unspecified; N39.0 Urinary tract infection, site not specified
CPT/HCPCS: 36415; 80048; 81001; 82306; 82728; 83540; 83550; 83735; 83970; 84100; 84550; 85025

== ENCOUNTER → 2019-03-27 | Outpatient (CLI) | payer MEDICARE ==
[2019-03-27 20:51] LABS: Hemoglobin A1C 7.2 % (4.0-6.0)
== END | disposition home or self-care (01) ==
LOC: LABWHC1 12:18
PROVIDERS: ATTEND Internal Medicine
DX: E11.65 Type 2 diabetes mellitus with hyperglycemia (principal)
CPT/HCPCS: 36415; 83036

== ENCOUNTER 2021-05-20 07:24 | Day surgery (SDC) | payer MEDICARE ==
[2021-05-16 15:55] VITALS: BMI 25.9
[~2021-05-20 07:24] MED LIST changes: -HYDROmorphone 0.5 MG/0.5 ML SYRINGE IVP PRN; +LACTATED RINGERS 1,000 ML IV SCH; +LIDOCAINE 1% (10MG/ML) FOR IV START INTRADERMA PRN; -MIDAZOLAM 2 MG/2 ML VIAL IV PRN; -ROPIVACAINE 246.25 MG, EPINEPHrine 0.5 MG, KETOROLAC 30 MG, cloNIDine HCL/PF 80 MCG, WA... MISCELLANE ONE; -TRANEXAMIC ACID 1,000 MG in SODIUM CHLORIDE 0.9% 100 ML IVPB ONE; -ceFAZolin IN SWFI 2 GM/20 ML SYRINGE IVP ONE
[2021-05-20] MEDS ORDERED: PROPOFOL 10 MG/ML 20 ML VIAL IV ONE (08:02)
[2021-05-20 08:03] VITALS: TEMP 97.9
--- NOTE | 2021-05-20 08:05 | P.GSHP ---
History of Present Illness H&P Date: 05/20/21 Chief Complaint: Abnormal stool test Patient here today for colonoscopy. Last colonoscopy many years ago per the patient. No bowel complaints. No family history of colon cancer. He has not seen any rectal bleeding or melena. Recent stool test was abnormal. Past Medical History Past Medical History: Coronary Artery Disease (CAD), Chest Pain / Angina, Heart Failure, COPD, CVA/TIA, Diabetes Mellitus, Hyperlipidemia, Hypertension, Osteoarthritis (OA), Prostate Disorder, Renal Disease, Sleep Apnea/CPAP/BIPAP, Supraventricular Tachycardia (SVT), Syncope, Vascular Disorder Additional Past Medical History / Comment(s): BACK PAIN , CVA 2013 and TIA 2014- short-term memory problems, rt side still slightly weaker , hx occ double vision & vertigo, tinnitus., sleep apnea (no machine), states kidney disease improving, uses walker prn., states sore on his tailbone.,wears continues glucose monitor on abd., states positive cologard., urine incontinence -wears pads History of Any Multi-Drug Resistant Organisms: None Reported Past Surgical History: Appendectomy, Coronary Bypass/CABG, Heart Catheterization, Hernia Repair, Joint Replacement Additional Past Surgical History / Comment(s): RIGHT HIP REPLACEMENT 2002. Left hip arthroplasty anterior approach 09/09/2018. Quadruple Bypass . Past Anesthesia/Blood Transfusion Reactions: No Reported Reaction Past Psychological History: Anxiety, Depression Smoking Status: Current every day smoker Past Alcohol Use History: Rare Additional Past Alcohol Use History / Comment(s): SMOKES 4 CIGARELLOS/DAY, STARTED SMOKING 1976, QUIT AND RESTARTED., HX OF 2PPD. Past Drug Use History: Marijuana Additional Drug Use History / Comment(s): STATES RARE MARIUANA USE. - Past Family History Father Family Medical History: Myocardial Infarction ([place]) Mother Family Medical History: Coronary Artery Disease (CAD) Daughter(s) Family Medical History: No Reported History Son(s) Family Medical History: No Reported History Medications and Allergies Home Medications Medication Instructions Recorded Confirmed Type Sodium Bicarbonate Tab 650 mg PO BID tab 09/23/16 05/16/21 Rx Aspirin [Adult Low Dose Aspirin EC] 81 mg PO DAILY 01/26/17 05/16/21 History Fenofibrate Nanocrystallized 145 mg PO DAILY 09/01/18 05/16/21 History [Fenofibrate] Turmeric Root Extract [Turmeric] 500 mg PO DAILY 09/01/18 05/16/21 History allopurinoL [Zyloprim] 100 mg PO DAILY 09/01/18 05/16/21 History amLODIPine [Norvasc] 5 mg PO HS 09/01/18 05/16/21 History lisinopriL [Zestril] 5 mg PO QAM 09/01/18 05/16/21 History Atorvastatin [Lipitor] 80 mg PO DAILY 05/16/21 05/16/21 History Cholecalciferol [Vitamin D3 (125 125 mcg PO MOTH 05/16/21 05/16/21 History Mcg = 5000 Iu)] Donepezil [Aricept] 5 mg PO HS 05/16/21 05/16/21 History Ezetimibe [Zetia] 10 mg PO DAILY 05/16/21 05/16/21 History Ferrous Sulfate [Iron] 325 mg PO DAILY 05/16/21 05/16/21 History Insulin Degludec [Tresiba 16 units SQ QAM 05/16/21 05/16/21 History Flextouch U-100 Pen] Mirtazapine [Remeron] 15 mg PO HS 05/16/21 05/16/21 History Naproxen Sodium [Aleve] 440 mg PO DAILY PRN 05/16/21 05/16/21 History Ozempic 1 dose SQ WEEKLY 05/16/21 History Allergies Allergy/AdvReac Type Severity Reaction Status Date / Time No Known Allergies Allergy Verified 05/16/21 15:10 Surgical - Exam Vital Signs Temp Pulse Resp BP Pulse Ox 97.9 F 87 20 189/90 99 05/20/21 08:01 05/20/21 08:01 05/20/21 08:01 05/20/21 08:01 05/20/21 08:01 Physical exam: General: Well-developed, well-nourished HEENT: Normocephalic, sclerae nonicteric Abdomen: Nontender, nondistended Extremities: No edema Neuro: Alert and oriented Assessment and Plan (1) Abnormal stool test Narrative/Plan: Will proceed with colonoscopy at this time. Current Visit: Yes Status: Acute Code(s): R19.5 - OTHER FECAL ABNORMALITIES SNOMED Code(s): 902448386
[2021-05-20 08:06] LABS: Glucose,Whole Blood 113 mg/dL (75-99)
--- NOTE | 2021-05-20 08:26 | P.PCN ---
Date of Procedure: 05/20/21 Procedure(s) Performed: PREOPERATIVE DIAGNOSIS: Abnormal stool test POSTOPERATIVE DIAGNOSIS: Ascending colon polyp, sigmoid colon polyp, diverticulosis PROCEDURE: Colonoscopy with snare polypectomy ANESTHESIA: MAC SURGEON: Deion Bellamy M.D. SPECIMENS: Polyps ENDOSCOPIC PROCEDURE: The patient was placed on the endoscopy table in the left decubitus position. The Olympus colonoscope was inserted into the anus and passed under direct visualization to the base of the cecum. The appendiceal orifice was visualized. From that point the scope was slowly withdrawn inspecting all surfaces carefully. There were no neoplastic inflammatory or polypoid lesions throughout the cecum. The ascending colon a small polyp was seen and removed using the snare with cautery technique. The remainder of the ascending transverse and descending colon appeared normal. In the sigmoid colon another small polyp was removed in a similar fashion. The remainder of the sigmoid and rectum appeared normal. The patient's prep was slightly suboptimal with liquid stool seen scattered throughout. Most of the mucosal surfaces were able to be visualized after irrigation however. The patient had mild diverticulosis scattered throughout the colon as well. Digital rectal examination was normal. The patient was taken to the recovery room in stable condition per anesthesia guidelines. RECOMMENDATIONS: Resume diet. Anticipate follow-up colonoscopy 5 years. We'll call patient with pathology findings.
[2021-05-20 08:34] VITALS: PULSE 76; RESP 16
[2021-05-20 08:49] VITALS: BP 132/77
== END 2021-05-20 09:15 | disposition home or self-care (01) ==
LOC: ORWHC2ENDO 07:24
PROVIDERS: ATTEND Surgery
DX: D12.2 Benign neoplasm of ascending colon (principal); K63.5 Polyp of colon; K57.30 Diverticulosis of large intestine without perforation or abscess without bleeding; I25.10 Atherosclerotic heart disease of native coronary artery without angina pectoris; I11.0 Hypertensive heart disease with heart failure; I50.9 Heart failure, unspecified; J44.9 Chronic obstructive pulmonary disease, unspecified; Z86.73 Personal history of transient ischemic attack (TIA), and cerebral infarction without residual deficits; E11.9 Type 2 diabetes mellitus without complications; E78.5 Hyperlipidemia, unspecified; I10 Essential (primary) hypertension; M19.90 Unspecified osteoarthritis, unspecified site; N42.9 Disorder of prostate, unspecified; N28.9 Disorder of kidney and ureter, unspecified; H93.19 Tinnitus, unspecified ear; G47.33 Obstructive sleep apnea (adult) (pediatric); R32 Unspecified urinary incontinence; I47.1 Supraventricular tachycardia; R55 Syncope and collapse; I69.311 Memory deficit following cerebral infarction; I69.351 Hemiplegia and hemiparesis following cerebral infarction affecting right dominant side; Z90.49 Acquired absence of other specified parts of digestive tract; Z95.1 Presence of aortocoronary bypass graft; Z96.641 Presence of right artificial hip joint; Z98.890 Other specified postprocedural states; F41.9 Anxiety disorder, unspecified; F32.A Depression, unspecified; F17.290 Nicotine dependence, other tobacco product, uncomplicated; Z82.49 Family history of ischemic heart disease and other diseases of the circulatory system; Z79.82 Long term (current) use of aspirin; Z79.899 Other long term (current) drug therapy; Z79.4 Long term (current) use of insulin; Z79.891 Long term (current) use of opiate analgesic
CPT/HCPCS: 88305; 45385; J2704

== ENCOUNTER 2021-07-14 11:16 | Emergency (ER) | payer MEDICARE ==
[2021-07-14 11:22] VITALS: RESP 18
--- NOTE | 2021-07-14 11:30 | ED ---
General Adult HPI - General Chief complaint: Psychiatric Symptoms Stated complaint: EPS eval Time Seen by Provider: 07/14/21 11:25 Source: patient, RN notes reviewed Mode of arrival: ambulatory Limitations: no limitations - History of Present Illness Initial comments: Patient is a pleasant 65-year-old male presenting to the emergency Department with depression. Patient states symptoms have been occurring for years, worse recently. Symptoms have been worse since her stroke in 2013. Patient does have suicidal thoughts. Patient denies having a plan to me. Patient states his face will not allow him to harm himself. No homicidal thoughts. Occasional marijuana use, no other drug use. No alcohol use. No hallucinations. No new physical complaints. - Related Data Home Medications Medication Instructions Recorded Confirmed Aspirin [Adult Low Dose Aspirin EC] 81 mg PO DAILY 01/26/17 05/16/21 Fenofibrate Nanocrystallized 145 mg PO DAILY 09/01/18 05/16/21 [Fenofibrate] Turmeric Root Extract [Turmeric] 500 mg PO DAILY 09/01/18 05/16/21 allopurinoL [Zyloprim] 100 mg PO DAILY 09/01/18 05/16/21 amLODIPine [Norvasc] 5 mg PO HS 09/01/18 05/16/21 lisinopriL [Zestril] 5 mg PO QAM 09/01/18 05/16/21 Atorvastatin [Lipitor] 80 mg PO DAILY 05/16/21 05/16/21 Cholecalciferol [Vitamin D3 (125 125 mcg PO MOTH 05/16/21 05/16/21 Mcg = 5000 Iu)] Donepezil [Aricept] 5 mg PO HS 05/16/21 05/16/21 Ezetimibe [Zetia] 10 mg PO DAILY 05/16/21 05/16/21 Ferrous Sulfate [Iron] 325 mg PO DAILY 05/16/21 05/16/21 Insulin Degludec [Tresiba 16 units SQ QAM 05/16/21 05/16/21 Flextouch U-100 Pen] Mirtazapine [Remeron] 15 mg PO HS 05/16/21 05/16/21 Naproxen Sodium [Aleve] 440 mg PO DAILY PRN 05/16/21 05/16/21 Ozempic 1 dose SQ WEEKLY 05/16/21 Previous Rx's Medication Instructions Recorded Sodium Bicarbonate Tab 650 mg PO BID tab 09/23/16 Allergies Allergy/AdvReac Type Severity Reaction Status Date / Time No Known Allergies Allergy Verified 07/14/21 11:22 Review of Systems ROS Statement: Those systems with pertinent positive or pertinent negative responses have been documented in the HPI. ROS Other: All systems not noted in ROS Statement are negative. Constitutional: Denies: fever Eyes: Denies: eye pain ENT: Denies: ear pain Respiratory: Denies: cough Cardiovascular: Denies: chest pain Endocrine: Denies: fatigue Gastrointestinal: Denies: abdominal pain Genitourinary: Denies: urgency Musculoskeletal: Denies: back pain Skin: Denies: rash Neurological: Denies: weakness Psychiatric: Reports: as per HPI, depression, suicidal thoughts Past Medical History Past Medical History: Coronary Artery Disease (CAD), Chest Pain / Angina, Heart Failure, COPD, CVA/TIA, Diabetes Mellitus, Hyperlipidemia, Hypertension, Osteoarthritis (OA), Prostate Disorder, Renal Disease, Sleep Apnea/CPAP/BIPAP, Supraventricular Tachycardia (SVT), Syncope, Vascular Disorder Additional Past Medical History / Comment(s): BACK PAIN , CVA 2013 and TIA 2014- short-term memory problems, rt side still slightly weaker , hx occ double vision & vertigo, tinnitus., sleep apnea (no machine), states kidney disease improving, uses walker prn., states sore on his tailbone.,wears continues glucose monitor on abd., states positive cologard., urine incontinence -wears pads History of Any Multi-Drug Resistant Organisms: None Reported Past Surgical History: Appendectomy, Coronary Bypass/CABG, Heart Catheterization, Hernia Repair, Joint Replacement Additional Past Surgical History / Comment(s): RIGHT HIP REPLACEMENT 2002. Left hip arthroplasty anterior approach 09/09/2018. Quadruple Bypass . Past Anesthesia/Blood Transfusion Reactions: No Reported Reaction Past Psychological History: Anxiety, Depression Smoking Status: Current every day smoker Past Alcohol Use History: Rare Past Drug Use History: Marijuana - Past Family History Father Family Medical History: Myocardial Infarction ([place]) Mother Family Medical History: Coronary Artery Disease (CAD) Daughter(s) Family Medical History: No Reported History Son(s) Family Medical History: No Reported History General Exam Limitations: no limitations General appearance: alert, in no apparent distress Head exam: Present: normocephalic Eye exam: Present: normal appearance Neck exam: Present: normal inspection Respiratory exam: Present: normal lung sounds bilaterally Cardiovascular Exam: Present: regular rate, normal rhythm GI/Abdominal exam: Present: soft. Absent: tenderness Extremities exam: Present: normal inspection Neurological exam: Present: alert Psychiatric exam: Present: depressed Skin exam: Present: normal color Course Vital Signs 07/14/21 11:19 Temperature 98.1 F Pulse Rate 110 H Respiratory 18 Rate Blood Pressure 186/85 O2 Sat by Pulse 97 Oximetry EKG Findings - EKG Comments: EKG Findings:: Sinus rhythm and 94. OK 174. QRS 102. QT 339. QTC 391. Left axis. Normal QRS. No acute ST change Medical Decision Making - Medical Decision Making Patient seen by mental health services with plan for discharge and follow-up. Patient has safety plan. Patient contracts for safety - Lab Data Result diagrams: 07/14/21 12:10 07/14/21 12:10 Lab Results 07/14/21 07/14/21 07/14/21 Range/Units 12:10 12:10 14:19 WBC 11.7 H (3.8-10.6) k/uL RBC 5.04 (4.30-5.90) m/uL Hgb 14.7 (13.0-17.5) gm/dL Hct 46.0 (39.0-53.0) % MCV 91.3 (80.0-100.0) fL MCH 29.1 (25.0-35.0) pg MCHC 31.9 (31.0-37.0) g/dL RDW 13.6 (11.5-15.5) % Plt Count 312 (150-450) k/uL MPV 7.1 Neutrophils % 83 % Lymphocytes % 11 % Monocytes % 3 % Eosinophils % 1 % Basophils % 1 % Neutrophils # 9.7 H (1.3-7.7) k/uL Lymphocytes # 1.3 (1.0-4.8) k/uL Monocytes # 0.4 (0-1.0) k/uL Eosinophils # 0.1 (0-0.7) k/uL Basophils # 0.1 (0-0.2) k/uL Sodium 137 (137-145) mmol/L Potassium 4.7 (3.5-5.1) mmol/L Chloride 112 H (98-107) mmol/L Carbon Dioxide 19 L (22-30) mmol/L Anion Gap 6 mmol/L BUN 28 H (9-20) mg/dL Creatinine 2.37 H (0.66-1.25) mg/dL Est GFR (CKD-EPI)AfAm 32 (>60 ml/min/1.73 sqM) Est GFR (CKD-EPI)NonAf 27 (>60 ml/min/1.73 sqM) Glucose 188 H (74-99) mg/dL Calcium 8.9 (8.4-10.2) mg/dL Urine Color Yellow Urine Appearance Clear (Clear) Urine pH 6.5 (5.0-8.0) Ur Specific [place] 1.014 (1.001-1.035) Urine Protein 3+ H (Negative) Urine Glucose (UA) 2+ H (Negative) Urine Ketones Negative (Negative) Urine Blood Trace H (Negative) Urine Nitrite Negative (Negative) Urine Bilirubin Negative (Negative) Urine Urobilinogen <2.0 (<2.0) mg/dL Ur Leukocyte Esterase Negative (Negative) Urine RBC 2 (0-5) /hpf Urine WBC 1 (0-5) /hpf Urine Mucus Rare H (None) /hpf Urine Opiates Screen Not Detected (NotDetected) Ur Oxycodone Screen Not Detected (NotDetected) Urine Methadone Screen Not Detected (NotDetected) Ur Propoxyphene Screen Not Detected (NotDetected) Ur Barbiturates Screen Not Detected (NotDetected) U Tricyclic Antidepress Not Detected (NotDetected) Ur Phencyclidine Scrn Not Detected (NotDetected) Ur Amphetamines Screen Not Detected (NotDetected) U Methamphetamines Scrn Not Detected (NotDetected) U Benzodiazepines Scrn Not Detected (NotDetected) Urine Cocaine Screen Not Detected (NotDetected) U Marijuana (THC) Screen Detected H (NotDetected) Serum Alcohol <10 mg/dL Disposition Clinical Impression: Depression Disposition: HOME SELF-CARE Condition: Stable Instructions (If sedation given, give patient instructions): Depression (ED) Additional Instructions: please follow-up with mental health services as directed. Please follow-up with primary care physician next day or 2 for recheck. Return for thoughts of self- harm, worsening or changing symptoms, or other concerns. Is patient prescribed a controlled substance at d/c from ED?: No Referrals: Ashok Hidalgo MD [Primary Care Provider] - 1-2 days Time of Disposition: 15:28
[2021-07-14 12:23] LABS: Basophils # (A) 0.1 k/uL (0-0.2); Basophils % (A) 1 %; Eosinophils # (A) 0.1 k/uL (0-0.7); Eosinophils % (A) 1 %; HGB 14.7 gm/dL (13.0-17.5); Lymphocytes # (A) 1.3 k/uL (1.0-4.8); Lymphocytes % (A) 11 %; MCH 29.1 pg (25.0-35.0); MCHC 31.9 g/dL (31.0-37.0); MCV 91.3 fL (80.0-100.0); Mean Platelet Volume 7.1; Monocytes # (A) 0.4 k/uL (0-1.0); Monocytes % (A) 3 %; Neutrophils # (A) 9.7 k/uL (1.3-7.7); Neutrophils % (A) 83 %; Platelet Count 312 k/uL (150-450); RBC 5.04 m/uL (4.30-5.90); RDW 13.6 % (11.5-15.5); WBC 11.7 k/uL (3.8-10.6)
[2021-07-14 12:46] LABS: African American GFR (CKD) 32 (>60 ml/min/1.73 sqM); Alcohol <10 mg/dL; Anion Gap 6 mmol/L; Blood Urea Nitrogen 28 mg/dL (9-20); Calcium 8.9 mg/dL (8.4-10.2); Carbon Dioxide 19 mmol/L (22-30); Chloride 112 mmol/L (98-107); Glucose 188 mg/dL (74-99); Non-African American GFR(CKD) 27 (>60 ml/min/1.73 sqM); Potassium 4.7 mmol/L (3.5-5.1); Sodium 137 mmol/L (137-145)
[2021-07-14 14:30] LABS: Appearance,Urine Clear (Clear); Bilirubin,Urine Negative (Negative); Blood,Urine Trace (Negative); Color,Urine Yellow; Glucose,Urine (UA) 2+ (Negative); Ketones,Urine Negative (Negative); Leukocyte Esterase,Urine Negative (Negative); Mucus,Urine Rare /hpf; Nitrite,Urine Negative (Negative); PH, Urine 6.5 (5.0-8.0); Protein,Urine 3+ (Negative); RBC,Urine 2 /hpf (0-5); Specific Gravity,Urine 1.014 (1.001-1.035); Urobilinogen,Urine <2.0 mg/dL (<2.0); WBC,Urine 1 /hpf (0-5)
[2021-07-14 15:11] LABS: Amphetamine Screen,Urine Not Detected (NotDetected); Barbiturate Screen,Urine Not Detected (NotDetected); Benzodiazepines Screen,Urine Not Detected (NotDetected); Cocaine Screen,Urine Not Detected (NotDetected); Methadone Screen, Urine Not Detected (NotDetected); Opiate Screen,Urine Not Detected (NotDetected); Oxycodone Screen, Urine Not Detected (NotDetected); Phencyclidine Screen,Urine Not Detected (NotDetected); Tricyclic Antidepressant,Urine Not Detected (NotDetected); Urn Cannabinoid Scrn Detected (NotDetected)
[2021-07-14 15:46] VITALS: BP 191/83; PULSE 80; TEMP 97.9
== END 2021-07-14 15:46 | disposition home or self-care (01) ==
LOC: EC 11:16
DX: F32.A Depression, unspecified (principal); I25.10 Atherosclerotic heart disease of native coronary artery without angina pectoris; I11.0 Hypertensive heart disease with heart failure; I50.9 Heart failure, unspecified; J44.9 Chronic obstructive pulmonary disease, unspecified; E11.9 Type 2 diabetes mellitus without complications; E78.5 Hyperlipidemia, unspecified; M19.90 Unspecified osteoarthritis, unspecified site; F41.9 Anxiety disorder, unspecified; F17.200 Nicotine dependence, unspecified, uncomplicated; F12.90 Cannabis use, unspecified, uncomplicated; Z79.82 Long term (current) use of aspirin; Z79.4 Long term (current) use of insulin; Z86.73 Personal history of transient ischemic attack (TIA), and cerebral infarction without residual deficits; Z90.49 Acquired absence of other specified parts of digestive tract; Z95.1 Presence of aortocoronary bypass graft; Z96.641 Presence of right artificial hip joint
CPT/HCPCS: 99285; 82075; 36415; 93005; 80048; 85025; 81001; 80306; G0480; 80320

== ENCOUNTER 2022-01-23 15:04 | Emergency (ER) | payer MEDICARE ==
[2022-01-23 15:21] VITALS: TEMP 97.8
[2022-01-23 15:53] LABS: Basophils % (A) 0 %; Eosinophils # (A) 0.1 k/uL (0-0.7); Eosinophils % (A) 1 %; HCT 39.2 % (39.0-53.0); HGB 12.9 gm/dL (13.0-17.5); Lymphocytes # (A) 1.3 k/uL (1.0-4.8); Lymphocytes % (A) 14 %; MCH 29.5 pg (25.0-35.0); MCHC 32.9 g/dL (31.0-37.0); MCV 89.8 fL (80.0-100.0); Mean Platelet Volume 7.9; Monocytes # (A) 0.4 k/uL (0-1.0); Monocytes % (A) 5 %; Neutrophils # (A) 7.2 k/uL (1.3-7.7); Neutrophils % (A) 78 %; Platelet Count 201 k/uL (150-450); RBC 4.37 m/uL (4.30-5.90); RDW 14.4 % (11.5-15.5); WBC 9.2 k/uL (3.8-10.6)
[2022-01-23 16:10] LABS: African American GFR (CKD) 37 (>60 ml/min/1.73 sqM); Alcohol <10 mg/dL; Anion Gap 9 mmol/L; Blood Urea Nitrogen 27 mg/dL (9-20); Calcium 8.4 mg/dL (8.4-10.2); Carbon Dioxide 22 mmol/L (22-30); Chloride 108 mmol/L (98-107); Glucose 165 mg/dL (74-99); Non-African American GFR(CKD) 32 (>60 ml/min/1.73 sqM); Potassium 3.8 mmol/L (3.5-5.1); Sodium 139 mmol/L (137-145)
--- NOTE | 2022-01-23 16:16 | ED ---
General Adult HPI - General Chief complaint: Psychiatric Symptoms Stated complaint: Mental Health Time Seen by Provider: 01/23/22 15:25 Source: patient, RN notes reviewed, old records reviewed Mode of arrival: ambulatory Limitations: no limitations - History of Present Illness Initial comments: Patient is a 66-year-old male who presents emergency Department playing of psychiatric symptoms. States she is having suicidal ideations. States he wants to she himself in the head. Denies any attempts. States he does have access to firearms. Denies homicidal ideations, attempts. Denies any homicidal plans. Denies any visual or auditory hallucinations. States he has had these thoughts on again and off again since his stroke multiple years ago, that is left him with residual right-sided weakness. Denies any alcohol or drug use. Denies any other acute complaints at this time. Would like to be evaluated by psychiatry. - Related Data Home Medications Medication Instructions Recorded Confirmed Aspirin [Adult Low Dose Aspirin EC] 81 mg PO DAILY 01/26/17 05/16/21 Fenofibrate Nanocrystallized 145 mg PO DAILY 09/01/18 05/16/21 [Fenofibrate] Turmeric Root Extract [Turmeric] 500 mg PO DAILY 09/01/18 05/16/21 allopurinoL [Zyloprim] 100 mg PO DAILY 09/01/18 05/16/21 amLODIPine [Norvasc] 5 mg PO HS 09/01/18 05/16/21 lisinopriL [Zestril] 5 mg PO QAM 09/01/18 05/16/21 Atorvastatin [Lipitor] 80 mg PO DAILY 05/16/21 05/16/21 Cholecalciferol [Vitamin D3 (125 125 mcg PO MOTH 05/16/21 05/16/21 Mcg = 5000 Iu)] Donepezil [Aricept] 5 mg PO HS 05/16/21 05/16/21 Ezetimibe [Zetia] 10 mg PO DAILY 05/16/21 05/16/21 Ferrous Sulfate [Iron] 325 mg PO DAILY 05/16/21 05/16/21 Insulin Degludec [Tresiba 16 units SQ QAM 05/16/21 05/16/21 Flextouch U-100 Pen] Mirtazapine [Remeron] 15 mg PO HS 05/16/21 05/16/21 Naproxen Sodium [Aleve] 440 mg PO DAILY PRN 05/16/21 05/16/21 Ozempic 1 dose SQ WEEKLY 05/16/21 Previous Rx's Medication Instructions Recorded Sodium Bicarbonate Tab 650 mg PO BID tab 09/23/16 Allergies Allergy/AdvReac Type Severity Reaction Status Date / Time No Known Allergies Allergy Verified 01/23/22 15:22 Review of Systems ROS Statement: Those systems with pertinent positive or pertinent negative responses have been documented in the HPI. Review of Systems: CONST: Denies fever EYES: Denies blurry vision ENT: Denies nasal congestion C/V: Denies Chest pain RESP: Denies shortness of breath GI: Denies abdominal pain : Denies dysuria SKIN: Denies rash. MSK: Denies joint pain. NEURO: Denies headache PSYCH: Denies homicidal ideations/plans/attempts. Denies visual or auditory hallucinations. He endorses suicidal ideations, plan. Denies attempt. ROS Other: All systems not noted in ROS Statement are negative. Past Medical History Past Medical History: Coronary Artery Disease (CAD), Chest Pain / Angina, Heart Failure, COPD, CVA/TIA, Diabetes Mellitus, Hyperlipidemia, Hypertension, Osteoarthritis (OA), Prostate Disorder, Renal Disease, Sleep Apnea/CPAP/BIPAP, Supraventricular Tachycardia (SVT), Syncope, Vascular Disorder Additional Past Medical History / Comment(s): BACK PAIN , CVA 2013 and TIA 2014- short-term memory problems, rt side still slightly weaker , hx occ double vision & vertigo, tinnitus., sleep apnea (no machine), states kidney disease improving, uses walker prn., states sore on his tailbone.,wears continues glucose monitor on abd., states positive cologard., urine incontinence -wears pads History of Any Multi-Drug Resistant Organisms: None Reported Past Surgical History: Appendectomy, Coronary Bypass/CABG, Heart Catheterization, Hernia Repair, Joint Replacement Additional Past Surgical History / Comment(s): RIGHT HIP REPLACEMENT 2002. Left hip arthroplasty anterior approach 09/09/2018. Quadruple Bypass -2016. Past Anesthesia/Blood Transfusion Reactions: No Reported Reaction Past Psychological History: Anxiety, Depression Smoking Status: Current every day smoker Past Alcohol Use History: Rare Past Drug Use History: Marijuana - Past Family History Father Family Medical History: Myocardial Infarction ([place]) Mother Family Medical History: Coronary Artery Disease (CAD) Daughter(s) Family Medical History: No Reported History Son(s) Family Medical History: No Reported History General Exam - General Exam Comments Initial Comments: General: Appears in no acute distress. HEAD: Normal with no signs of head trauma. EYES: PERRLA, EOMI, conjunctiva normal, no discharge. ENT: Hearing grossly intact, normal oropharynx. RESPIRATORY: Clear breath sounds bilaterally. No wheezes, rales, or rhonchi. C/V: Regular rate and rhythm. S1 and S2 auscultated, no edema, peripheral pulses 2+ and intact throughout ABD: Abd is soft, nontender, nondistended EXT: Normal range of motion, no obvious deformity SKIN: No rashes or lesions observed on exposed skin. NEURO: Alert and oriented 4. Residual right-sided weakness secondary to prior stroke. Ambulates with a cane at baseline. Limitations: no limitations Course Vital Signs 01/23/22 15:19 Temperature 97.8 F Pulse Rate 83 Respiratory 16 Rate Blood Pressure 176/70 O2 Sat by Pulse 99 Oximetry Medical Decision Making - Medical Decision Making Based on the patient's presentation and physical exam, I'm concerned for suicidal ideations at this time. He was placed in green scrubs. A sitter was ordered. Suicide precautions were ordered. Due to his age we will obtain basic laboratory studies. Appears to have a history of CKD. Alcohol level will also be obtained in addition to UDS. Patient's vital signs are within acceptable limits. His no other acute complaints at this time. Patient was in agreement this plan. Patient's laboratory studies are remarkable for elevated BUN/creatinine but this is chronic for the patient with a history of CKD. Remainder the labs are unremarkable. Alcohol level is negative. At this time patient is cleared for EPS evaluation. Patient is medically cleared. EPS evaluated the patient and after discussion with psychiatry, the determined the patient does not meet inpatient criteria. He will Be given referrals for outpatient follow-up. Patient will be discharged home at this time. Patient is discharged home in good condition. - Lab Data Result diagrams: 01/23/22 15:46 01/23/22 15:46 Lab Results 01/23/22 01/23/22 Range/Units 15:46 15:46 WBC 9.2 (3.8-10.6) k/uL RBC 4.37 (4.30-5.90) m/uL Hgb 12.9 L (13.0-17.5) gm/dL Hct 39.2 (39.0-53.0) % MCV 89.8 (80.0-100.0) fL MCH 29.5 (25.0-35.0) pg MCHC 32.9 (31.0-37.0) g/dL RDW 14.4 (11.5-15.5) % Plt Count 201 (150-450) k/uL MPV 7.9 Neutrophils % 78 % Lymphocytes % 14 % Monocytes % 5 % Eosinophils % 1 % Basophils % 0 % Neutrophils # 7.2 (1.3-7.7) k/uL Lymphocytes # 1.3 (1.0-4.8) k/uL Monocytes # 0.4 (0-1.0) k/uL Eosinophils # 0.1 (0-0.7) k/uL Basophils # 0.0 (0-0.2) k/uL Sodium 139 (137-145) mmol/L Potassium 3.8 (3.5-5.1) mmol/L Chloride 108 H (98-107) mmol/L Carbon Dioxide 22 (22-30) mmol/L Anion Gap 9 mmol/L BUN 27 H (9-20) mg/dL Creatinine 2.08 H (0.66-1.25) mg/dL Est GFR (CKD-EPI)AfAm 37 (>60 ml/min/1.73 sqM) Est GFR (CKD-EPI)NonAf 32 (>60 ml/min/1.73 sqM) Glucose 165 H (74-99) mg/dL Calcium 8.4 (8.4-10.2) mg/dL Serum Alcohol <10 mg/dL Disposition Clinical Impression: Encounter for psychiatric assessment, CKD (chronic kidney disease) Disposition: HOME SELF-CARE Condition: Good Additional Instructions: See outpatient referrals from EPS. Is patient prescribed a controlled substance at d/c from ED?: No Referrals: Ashok Hidalgo MD [Primary Care Provider] - 1-2 days Time of Disposition: 18:00
[2022-01-23 18:52] VITALS: BP 148/78; PULSE 81; RESP 18
== END 2022-01-23 18:28 | disposition home or self-care (01) ==
LOC: EC 15:04
DX: Z04.6 Encounter for general psychiatric examination, requested by authority (principal); I25.10 Atherosclerotic heart disease of native coronary artery without angina pectoris; J44.9 Chronic obstructive pulmonary disease, unspecified; E11.9 Type 2 diabetes mellitus without complications; E78.5 Hyperlipidemia, unspecified; M19.90 Unspecified osteoarthritis, unspecified site; I13.0 Hypertensive heart and chronic kidney disease with heart failure and stage 1 through stage 4 chronic kidney disease, or unspecified chronic kidney disease; I50.9 Heart failure, unspecified; N18.9 Chronic kidney disease, unspecified; F41.9 Anxiety disorder, unspecified; F32.A Depression, unspecified; F17.200 Nicotine dependence, unspecified, uncomplicated; F12.90 Cannabis use, unspecified, uncomplicated; Z79.4 Long term (current) use of insulin; Z79.899 Other long term (current) drug therapy; Z79.82 Long term (current) use of aspirin; Z79.811 Long term (current) use of aromatase inhibitors
CPT/HCPCS: 36415; 80048; 85025; 99284; G0480; 80320

== ENCOUNTER 2022-07-10 16:06 | Inpatient (IN) | payer MEDICARE ==
--- NOTE | 2022-07-10 17:52 | ED ---
General Adult HPI - General Chief complaint: Recheck/Abnormal Lab/Rx Stated complaint: abnormal labs/sent by doctors Time Seen by Provider: 07/10/22 17:00 Source: patient Mode of arrival: ambulatory Limitations: no limitations - History of Present Illness Initial comments: Dictation was produced using [email or web address] dictation software. please excuse any gr ammatical, word or spelling errors. Chief Complaint: 66-year-old male presents emergency department for abnormal potassium level History of Present Illness: Patient is a 66-year-old male told to come to the emergency department for abnormal potassium level. Patient had routine blood work in anticipation for routine exam next week. He was called told that he has critically high potassium level. Patient states he feels slightly weak. He does have history of kidney disease. Patient's multiple cardiac problems. The ROS documented in this emergency department record has been reviewed and confirmed by me. Those systems with pertinent positive or negative responses have been documented in the HPI. All other systems are other negative and/or noncontributory. - Related Data Home Medications Medication Instructions Recorded Confirmed Aspirin [Adult Low Dose Aspirin EC] 81 mg PO HS 01/26/17 07/10/22 Fenofibrate Nanocrystallized 145 mg PO HS 09/01/18 07/10/22 [Fenofibrate] allopurinoL [Zyloprim] 100 mg PO HS 09/01/18 07/10/22 amLODIPine [Norvasc] 5 mg PO HS 09/01/18 07/10/22 lisinopriL [Zestril] 10 mg PO DAILY 09/01/18 07/10/22 Atorvastatin [Lipitor] 80 mg PO HS 05/16/21 07/10/22 Ezetimibe [Zetia] 10 mg PO HS 05/16/21 07/10/22 Dapagliflozin Propanediol [Farxiga] 5 mg PO HS 07/10/22 07/10/22 Ergocalciferol (Vitamin D2) 1,250 mcg PO MOTH 07/10/22 07/10/22 [Drisdol (50,000 Iu)] Prazosin HCl 2 mg PO HS 07/10/22 07/10/22 Sertraline [Zoloft] 50 mg PO HS 07/10/22 07/10/22 Previous Rx's Medication Instructions Recorded Sodium Bicarbonate Tab 650 mg PO BID tab 09/23/16 Allergies Allergy/AdvReac Type Severity Reaction Status Date / Time No Known Allergies Allergy Verified 07/10/22 18:30 Review of Systems ROS Statement: Those systems with pertinent positive or pertinent negative responses have been documented in the HPI. ROS Other: All systems not noted in ROS Statement are negative. Past Medical History Past Medical History: Coronary Artery Disease (CAD), Chest Pain / Angina, Heart Failure, COPD, CVA/TIA, Diabetes Mellitus, Hyperlipidemia, Hypertension, Osteoarthritis (OA), Prostate Disorder, Renal Disease, Sleep Apnea/CPAP/BIPAP, Supraventricular Tachycardia (SVT), Syncope, Vascular Disorder Additional Past Medical History / Comment(s): BACK PAIN , CVA 2013 and TIA 2014- short-term memory problems, rt side still slightly weaker , hx occ double vision & vertigo, tinnitus., sleep apnea (no machine), states kidney disease improving, uses walker prn., states sore on his tailbone.,wears continues glucose monitor on abd., states positive cologard., urine incontinence -wears pads History of Any Multi-Drug Resistant Organisms: None Reported Past Surgical History: Appendectomy, Coronary Bypass/CABG, Heart Catheterizati on, Hernia Repair, Joint Replacement Additional Past Surgical History / Comment(s): RIGHT HIP REPLACEMENT 2002. Left hip arthroplasty anterior approach 09/09/2018. Quadruple Bypass . Past Anesthesia/Blood Transfusion Reactions: No Reported Reaction Past Psychological History: Anxiety, Depression Smoking Status: Current every day smoker Past Alcohol Use History: Rare Past Drug Use History: Marijuana - Past Family History Father Family Medical History: Myocardial Infarction ([place]) Mother Family Medical History: Coronary Artery Disease (CAD) Daughter(s) Family Medical History: No Reported History Son(s) Family Medical History: No Reported History General Exam - General Exam Comments Initial Comments: PHYSICAL EXAM: General Impression: Alert and oriented x3, not in acute distress HEENT: Normocephalic atraumatic, extra-ocular movements intact, pupils equal and reactive to light bilaterally, mucous membranes moist. Cardiovascular: Heart regular rate and rhythm Chest: Able to complete full sentences, no retractions, no tachypnea Abdomen: abdomen soft, non-tender, non-distended, no organomegaly Musculoskeletal: Pulses present and equal in all extremities, no peripheral edema Motor: no focal deficits noted Neurological: CN II-XII grossly intact, no focal motor or sensory deficits noted Skin: Intact with no visualized rashes Psych: Normal affect and mood Limitations: no limitations Course Vital Signs 07/10/22 07/10/22 16:38 19:38 Temperature 98.1 F Pulse Rate 81 63 Respiratory 20 18 Rate Blood Pressure 144/72 176/79 O2 Sat by Pulse 99 99 Oximetry Medical Decision Making - Medical Decision Making Was pt. sent in by a medical professional or institution (, [facility]AD[facility], BALL ASSEMBLER, urgent care, hospital, or senior living...) When possible be specific @ -Instructed to come to the ER by PCP office Did you speak to anyone other than the patient for history (EMS, parent, family, police, friend...)? What history was obtained from this source @ -No Did you review nursing and triage notes (agree or disagree)? Why? @ -I reviewed and agree with nursing and triage notes Were old charts reviewed (outside hosp., previous admission, EMS record, old EKG, old radiological studies, urgent care reports/EKG's, senior living records)? Report findings @ -No old charts were reviewed Differential Diagnosis (chest pain, altered mental status, abdominal pain women, abdominal pain men, vaginal bleeding, musculoskeletal, weakness, fever, dyspnea, syncope, headache, dizziness, GI bleed, back pain, seizure, CVA, palpatations, mental health)? @ -not applicable EKG interpreted by me (3pts min.). @ -My EKG interpretation: Ventricular rate 63, sinus rhythm,. Interval 177, QRS 100, QTC 380. No MN prolongation, no QTC prolongation, no ST or T-wave changes noted. EKG compared to 07/14/2021 showing no changes. Overall, this EKG is unremarkable X-rays interpreted by me (1pt min.). @ -None done CT interpreted by me (1pt min.). @ -None done U/S interpreted by me (1pt. min.). @ -None done What testing was considered but not performed or refused? (CT, X-rays, U/S, labs)? Why? @ -None What meds were considered but not given or refused? Why? @ -None Did you discuss the management of the patient with other professionals (professionals i.e. , GLADYS, BALL ASSEMBLER, lab, RT, psych nurse, criminal justice social worker, innovation analyst, teacher, bsa/aml compliance officer, patient case manager)? Give summary @ -Discussed with ball assembler, Dr. Montenegro who is aware of patient's clinical presentation. Case also discussed with Dr. granger for admission Was smoking cessation discussed for >3mins.? @ -No Was critical care preformed (if so, how long)? @ -33 minutes Were there social determinants of health that impacted care today? How? (Homelessness, low income, unemployed, alcoholism, drug addiction, transportation, low edu. Level, literacy, decrease access to med. care, senior living, rehab)? @ -No Was there de-escalation of care discussed even if they declined (Discuss DNR or withdrawal of care, Hospice)? DNR status @ -No What co-morbidities impacted this encounter? (DM, HTN, Smoking, COPD, CAD, Cancer, CVA, ARF, Chemo, Hep., AIDS, mental health diagnosis, sleep apnea, morbid obesity)? @ -Chronic kidney disease Was patient admitted / discharged? Hospital course, mention meds given and route, prescriptions, significant lab abnormalities, going to OR and other pertinent info. @ -66-year-old male presents to emergency department after having elevated potassium levels drawn on routine labs. Labs were redrawn here with potassium 6.5. Elevated renal markers above patient's baseline. Case is discussed with ball assembler is aware of patient. Patient given hyperkalemia cocktail. Admitted to [facility] Undiagnosed new problem with uncertain prognosis? @ -No Drug Therapy requiring intensive monitoring for toxicity (Heparin, Nitro, Insulin, Cardizem)? @ -No Were any procedures done? @ -No Diagnosis/symptom? Acute, or Chronic, or Acute on Chronic? Uncomplicated (without systemic symptoms) or Complicated (systemic symptoms)? @ -1. Acute hyperkalemia, 2. Acute kidney injury Side effects of treatment? @ -No Exacerbation, Progression, or Severe Exacerbation? @ -No Poses a threat to life or bodily function? How? (Chest pain, USA, SD, pneumonia, PE, COPD, DKA, ARF, appy, cholecystitis, CVA, Diverticulitis, Homicidal, Suicidal, threat to staff... and all critical care pts) @ -yes - Lab Data Result diagrams: 07/10/22 18:34 07/10/22 18:34 Lab Results 07/10/22 07/10/22 Range/Units 18:34 18:34 WBC 8.1 (3.8-10.6) k/uL RBC 4.49 (4.30-5.90) m/uL Hgb 12.8 L (13.0-17.5) gm/dL Hct 40.6 (39.0-53.0) % MCV 90.4 (80.0-100.0) fL MCH 28.6 (25.0-35.0) pg MCHC 31.6 (31.0-37.0) g/dL RDW 15.0 (11.5-15.5) % Plt Count 190 (150-450) k/uL MPV 7.7 Neutrophils % 74 % Lymphocytes % 16 % Monocytes % 6 % Eosinophils % 1 % Basophils % 0 % Neutrophils # 6.0 (1.3-7.7) k/uL Lymphocytes # 1.3 (1.0-4.8) k/uL Monocytes # 0.5 (0-1.0) k/uL Eosinophils # 0.1 (0-0.7) k/uL Basophils # 0.0 (0-0.2) k/uL Sodium 139 (137-145) mmol/L Potassium 6.5 H* (3.5-5.1) mmol/L Chloride 117 H (98-107) mmol/L Carbon Dioxide 16 L (22-30) mmol/L Anion Gap 6 mmol/L BUN 42 H (9-20) mg/dL Creatinine 3.22 H (0.66-1.25) mg/dL Est GFR (CKD-EPI)AfAm 22 (>60 ml/min/1.73 sqM) Est GFR (CKD-EPI)NonAf 19 (>60 ml/min/1.73 sqM) Glucose 132 H (74-99) mg/dL Calcium 8.8 (8.4-10.2) mg/dL Magnesium 2.4 H (1.6-2.3) mg/dL Disposition Clinical Impression: Hyperkalemia Disposition: ADMITTED IP TO THIS [facility] Condition: Serious Referrals: Ashok Hidalgo MD [Primary Care Provider] - 1-2 days Decision Time: 19:00
[2022-07-10 18:55] LABS: Basophils % (A) 0 %; Eosinophils # (A) 0.1 k/uL (0-0.7); Eosinophils % (A) 1 %; HCT 40.6 % (39.0-53.0); HGB 12.8 gm/dL (13.0-17.5); Lymphocytes # (A) 1.3 k/uL (1.0-4.8); Lymphocytes % (A) 16 %; MCH 28.6 pg (25.0-35.0); MCHC 31.6 g/dL (31.0-37.0); MCV 90.4 fL (80.0-100.0); Mean Platelet Volume 7.7; Monocytes # (A) 0.5 k/uL (0-1.0); Monocytes % (A) 6 %; Neutrophils % (A) 74 %; Platelet Count 190 k/uL (150-450); RBC 4.49 m/uL (4.30-5.90); WBC 8.1 k/uL (3.8-10.6)
[2022-07-10 19:18] LABS: Calcium 8.8 mg/dL (8.4-10.2); Magnesium 2.4 mg/dL (1.6-2.3)
[2022-07-10 19:23] LABS: Potassium 6.5 mmol/L (3.5-5.1)
[2022-07-10] MEDS ORDERED: SODIUM CHLORIDE 0.9% 1,000 ML IV STA (19:32)
[2022-07-10] MEDS ORDERED: INSULIN REGULAR 100 UNIT/ML VIAL (IV) IV ONE (19:58)
[2022-07-10] MEDS ORDERED: DEXTROSE 50% SYRINGE 50 ML IVP ONE (19:58)
[2022-07-10] MEDS ORDERED: ALBUTEROL NEB (CONC) 2.5 MG/0.5 ML INHALATION ONE ×2 (19:58→22:00)
[2022-07-10] MEDS ORDERED: SODIUM BICARB 8.4% 50 ML SYR (1 MEQ/ML) IV ONE (19:58)
[2022-07-10] MEDS ORDERED: NALOXONE 0.4 MG/ML 1 ML VIAL IV PRN (19:59)
[2022-07-10] MEDS ORDERED: SODIUM CHLORIDE 0.9% 1,000 ML IV SCH (20:00)
[2022-07-10] MEDS ORDERED: SODIUM ZIRCONIUM CYCLOSILICATE 10 GM PACKET PO ONE (20:30)
[2022-07-10 21:01] LABS: Glucose,Whole Blood 66 mg/dL (70-110)
[2022-07-10 21:22] LABS: Glucose,Whole Blood 37 mg/dL (70-110)
[2022-07-10 21:29] LABS: Glucose,Whole Blood 195 mg/dL (70-110)
[2022-07-10] MEDS ORDERED: DEXTROSE 50% SYRINGE 50 ML IVP STA (21:29)
[2022-07-11] MEDS: SODIUM BICARBONATE TAB 650 MG TAB PO SCH ×3 (00:17→21:08)
[2022-07-11] MEDS: SERTRALINE 50 MG TAB PO SCH ×3 (00:19→21:08)
[2022-07-11] MEDS: ASPIRIN 81 MG PO SCH ×3 (00:20→21:08)
[2022-07-11] MEDS: FENOFIBRATE 160 MG TAB PO SCH ×3 (00:20→21:08)
[2022-07-11] MEDS: ATORVASTATIN 80 MG TAB PO SCH ×3 (00:20→21:08)
[2022-07-11] MEDS: PRAZOSIN 1 MG CAP PO SCH ×3 (00:20→21:08)
[2022-07-11] MEDS: EZETIMIBE 10 MG TAB PO SCH ×3 (00:21→21:08)
[2022-07-11] MEDS: amLODIPine 5 MG TAB PO SCH ×2 (00:28→21:08)
--- NOTE | 2022-07-11 10:26 | US ---
EXAMINATION TYPE: US kidneys/renal and bladder DATE OF EXAM: 07/11/2022 COMPARISON: US CLINICAL INDICATION: Male, 66 years old with history of Acute kidney injury, hyperkalemia; Abnormal l abs EXAM MEASUREMENTS: Right Kidney: 13.1 x 6.1 x 4.3 cm Left Kidney: 12.6 x 6.3 x 5.4 cm Post Void Residual Volume: 222 mL Multiple grayscale and color Doppler ultrasound images of both kidneys in the urinary bladder were ob tained. Right Kidney: No evidence of hydro, probable multicystic with largest cystic lesion mid/lateral= 5.9 x 3.9 x 4.6 cm Left Kidney: No evidence of hydro, probable multicystic with largest cystic lesion lower pole= 3.4 x 3.3 x 3.3 cm Bladder: wnl Bilateral Jets seen: Only left jet visualized Normal Post Void Residual: No There is no evidence for hydronephrosis at this point in time. No nephrolithiasis is seen. Multiple simple appearing bilateral renal cysts. No solid masses are identified. The urinary bladder is anec hoic. The left ureter jet was only visualized. Abnormal post void residual. IMPRESSION: 1. No hydronephrosis or nephrolithiasis. 2. Multiple bilateral simple appearing renal cysts. 3. Abnormal post void residual of 222 mL.
--- NOTE | 2022-07-11 10:57 | P.NPCON ---
History of Present Illness - Reason for Consult hyperkalemia - History of Present Illness Patient is a 66-year-old male with history of chronic kidney disease NKF stage IIIB to 4 with baseline creatinine around 2 mg/dL secondary to diabetic kidney disease. Patient had about 3 g of proteinuria on workup in 2018. All serologies were negative at that time. Patient is maintained on MATTY inhibitors. I will check office records for etiology of underlying CK D. Patient is admitted to the hospital with abnormal labs with serum potassium at 6.5. Serum creatinine was also elevated at 3.2 mg/dL. Mild acidosis is noted with CO2 at 16. Patient denies any history of use of NSAIDs. He has been voiding okay Blood pressure was not low No history of obvious GI bleed. Patient is maintained on Farxiga as outpatient. Post void bladder volume was 222 mL Review of Systems Awake, comfortable, no acute distress Examination of the heart S1 and S2 Examination of the lungs bilateral breath sounds are heard Abdomen is soft nontender Examination of lower extremity shows no evidence of edema HATCHERY WORKER exam grossly intact Past Medical History Past Medical History: Coronary Artery Disease (CAD), Chest Pain / Angina, Heart Failure, COPD, CVA/TIA, Diabetes Mellitus, Hyperlipidemia, Hypertension, Osteoarthritis (OA), Prostate Disorder, Renal Disease, Sleep Apnea/CPAP/BIPAP, Supraventricular Tachycardia (SVT), Syncope, Vascular Disorder Additional Past Medical History / Comment(s): BACK PAIN , CVA 2013 and TIA 2014- short-term memory problems, rt side still slightly weaker , hx occ double vision & vertigo, tinnitus., sleep apnea (no machine), states kidney disease improving, uses walker prn., states sore on his tailbone.,wears continues glucose monitor on abd., states positive cologard., urine incontinence -wears pads History of Any Multi-Drug Resistant Organisms: None Reported Past Surgical History: Appendectomy, Coronary Bypass/CABG, Heart Catheterization, Hernia Repair, Joint Replacement Additional Past Surgical History / Comment(s): RIGHT HIP REPLACEMENT 2002. Left hip arthroplasty anterior approach 09/09/2018. Quadruple Bypass -2016. Past Anesthesia/Blood Transfusion Reactions: No Reported Reaction Past Psychological History: Anxiety, Depression Smoking Status: Current every day smoker Past Alcohol Use History: Rare Additional Past Alcohol Use History / Comment(s): SMOKES 2 CIGARELLOS/DAY, STARTED SMOKING 1976, QUIT AND RESTARTED., HX OF 2PPD. Past Drug Use History: Marijuana Additional Drug Use History / Comment(s): STATES RARE MARIUANA USE. - Past Family History Father Family Medical History: Myocardial Infarction ([place]) Mother Family Medical History: Coronary Artery Disease (CAD) Daughter(s) Family Medical History: No Reported History Son(s) Family Medical History: No Reported History Medications and Allergies Home Medications Medication Instructions Recorded Confirmed Type Sodium Bicarbonate Tab 650 mg PO BID tab 09/23/16 07/10/22 Rx Aspirin [Adult Low Dose Aspirin EC] 81 mg PO HS 01/26/17 07/10/22 History Fenofibrate Nanocrystallized 145 mg PO HS 09/01/18 07/10/22 History [Fenofibrate] allopurinoL [Zyloprim] 100 mg PO HS 09/01/18 07/10/22 History amLODIPine [Norvasc] 5 mg PO HS 09/01/18 07/10/22 History lisinopriL [Zestril] 10 mg PO DAILY 09/01/18 07/10/22 History Atorvastatin [Lipitor] 80 mg PO HS 05/16/21 07/10/22 History Ezetimibe [Zetia] 10 mg PO HS 05/16/21 07/10/22 History Dapagliflozin Propanediol [Farxiga] 5 mg PO HS 07/10/22 07/10/22 History Ergocalciferol (Vitamin D2) 1,250 mcg PO MOTH 07/10/22 07/10/22 History [Drisdol (50,000 Iu)] Prazosin HCl 2 mg PO HS 07/10/22 07/10/22 History Sertraline [Zoloft] 50 mg PO HS 07/10/22 07/10/22 History Allergies Allergy/AdvReac Type Severity Reaction Status Date / Time No Known Allergies Allergy Verified 07/10/22 18:30 Physical Exam Vitals: Vital Signs Temp Pulse Pulse Resp BP BP Pulse Ox 07/11/22 08:00 98.3 F 83 18 159/69 97 07/11/22 04:00 98.2 F 80 18 149/74 97 07/11/22 02:00 81 18 07/10/22 21:54 97.6 F 81 18 162/73 97 07/10/22 21:02 98.4 F 84 18 150/62 96 07/10/22 20:18 57 L 18 150/62 96 07/10/22 19:38 63 18 176/79 99 07/10/22 16:38 98.1 F 81 20 144/72 99 Intake and Output 07/10/22 07/11/22 07/11/22 22:59 06:59 14:59 Other: Voiding Method Urinal Urinal Urinal Diaper Diaper Diaper Incontinent Incontinent Incontinent # Voids 1 # Bowel Movements 1 Weight 63.503 kg Results - Lab Results Most recent lab results Calcium 8.8 mg/dL (8.4-10.2) 07/10/22 18:34 Magnesium 2.4 mg/dL (1.6-2.3) H 07/10/22 18:34 07/10/22 18:34 07/10/22 21:01 Assessment and Plan Assessment: 1. Acute kidney injury, possibly prerenal. Post void bladder scan was abnormal at 222 mL. No evidence of hydronephrosis on ultrasound. Check urine analysis and continue to hold MATTY inhibitor's 2. CK D stage III B to 4 with baseline creatinine around 2. Etiology is diabetic kidney disease. 24 hour urine showed about 3 g of proteinuria in 2018. 3. Hyperkalemia associated with acute kidney injury, metabolic acidosis in the setting of use of MATTY inhibitor's, currently improved need to monitor for urine retention 4. Non-gap metabolic acidosis associated with acute kidney injury 5. History of COPD Plan: Change IV fluids to IV bicarb Continue with oral sodium bicarb Hold lisinopril Continue to monitor for bladder retention Maintain low potassium diet. Check urine analysis Check random urine protein creatinine ratio next Thank you for the consultation. We will continue to follow the patient with you during his hospitalization
[2022-07-11] MEDS: DEXTROSE 5% IN WATER 1,000 ML with SODIUM BICARB (1 MEQ/ML) 150 ML IV SCH (13:01)
--- NOTE | 2022-07-11 13:58 | P.HPIM ---
History of Present Illness H&P Date: 07/11/22 History of present illness; patient is a 66-year-old gentleman past medical history significant for coronary disease status post CABG, chronic kidney disease, diabetes mellitus who presented to the ER because of abnormal potassium levels. Patient was called in after getting routine blood work that showed elevated potassium levels. Patient didn't mention that he was feeling weak for a few weeks. Denies any problem with urination, denies any burning pain or change in frequency of micturition. Patient was worked up in the ER, initial lab work showed white count of 8.1, hemoglobin 12.8, platelet count 190, sodium 139, potassium 6.5, chloride 117, BUN 42, creatinine 3.22. Patient was given potassium shifters in the ER and was admitted to internal medicine service. REVIEW OF SYSTEMS: CONSTITUTIONAL: Complaining of malaise. No fevers HEENT: No recent visual problems or hearing problems. Denied any sore throat. CARDIOVASCULAR: No chest pain, orthopnea, PND, no palpitations, no syncope. PULMONARY: No shortness of breath, no cough, no hemoptysis. GASTROINTESTINAL: No diarrhea, no nausea, no vomiting, no abdominal pain. NEUROLOGICAL: No headaches, no weakness, no numbness. HEMATOLOGICAL: Denies any bleeding or petechiae. GENITOURINARY: As mentioned in HPI MUSCULOSKELETAL/RHEUMATOLOGICAL: Denies any joint pain, swelling, or any muscle pain. ENDOCRINE: Denies any polyuria or polydipsia. The rest of the 14-point review of systems is negative. PHYSICAL EXAMINATION: GENERAL: The patient is alert and oriented x3, not in any acute distress. Well developed, well nourished. HEENT: Pupils are round and equally reacting to light. EOMI. No scleral icterus. No conjunctival pallor. Normocephalic, atraumatic. No pharyngeal erythema. No thyromegaly. CARDIOVASCULAR: S1 and S2 present. No murmurs, rubs, or gallops. PULMONARY: Chest is clear to auscultation, no wheezing or crackles. ABDOMEN: Soft, nontender, nondistended, normoactive bowel sounds. No palpable organomegaly. MUSCULOSKELETAL: No joint swelling or deformity. EXTREMITIES: No cyanosis, clubbing, or pedal edema. NEUROLOGICAL: Gross neurological examination did not reveal any focal deficits. SKIN: No rashes. Assessment and plan Hyperkalemia Acute on chronic kidney disease Non-anion gap metabolic acidosis Hypertension Hyperlipidemia [id number] diabetes mellitus Depression History of coronary artery disease Plan; Monitor vital signs Monitor CBC Monitor CMP Telemetry monitoring Strict I's and O's Daily weights Avoid nephrotoxic agents DC lisinopril because of hyperkalemia Continue IV fluids, bicarb added Ordered ultrasound of kidneys Avoid hypotension Continue sliding scale insulin Resume home meds Consult nephrology DVT prophylaxis: Past Medical History Past Medical History: Coronary Artery Disease (CAD), Chest Pain / Angina, Heart Failure, COPD, CVA/TIA, Diabetes Mellitus, Hyperlipidemia, Hypertension, Osteoarthritis (OA), Prostate Disorder, Renal Disease, Sleep Apnea/CPAP/BIPAP, Supraventricular Tachycardia (SVT), Syncope, Vascular Disorder Additional Past Medical History / Comment(s): BACK PAIN , CVA 2013 and TIA 2014- short-term memory problems, rt side still slightly weaker , hx occ double vision & vertigo, tinnitus., sleep apnea (no machine), states kidney disease improving, uses walker prn., states sore on his tailbone.,wears continues glucose monitor on abd., states positive cologard., urine incontinence -wears pads History of Any Multi-Drug Resistant Organisms: None Reported Past Surgical History: Appendectomy, Coronary Bypass/CABG, Heart Catheterization, Hernia Repair, Joint Replacement Additional Past Surgical History / Comment(s): RIGHT HIP REPLACEMENT 2002. Left hip arthroplasty anterior approach 09/09/2018. Quadruple Bypass -2016. Past Anesthesia/Blood Transfusion Reactions: No Reported Reaction Past Psychological History: Anxiety, Depression Smoking Status: Current every day smoker Past Alcohol Use History: Rare Additional Past Alcohol Use History / Comment(s): SMOKES 2 CIGARELLOS/DAY, STARTED SMOKING 1976, QUIT AND RESTARTED., HX OF 2PPD. Past Drug Use History: Marijuana Additional Drug Use History / Comment(s): STATES RARE MARIUANA USE. - Past Family History Father Family Medical History: Myocardial Infarction ([place]) Mother Family Medical History: Coronary Artery Disease (CAD) Daughter(s) Family Medical History: No Reported History Son(s) Family Medical History: No Reported History Medications and Allergies Home Medications Medication Instructions Recorded Confirmed Type Sodium Bicarbonate Tab 650 mg PO BID tab 09/23/16 07/10/22 Rx Aspirin [Adult Low Dose Aspirin EC] 81 mg PO HS 01/26/17 07/10/22 History Fenofibrate Nanocrystallized 145 mg PO HS 09/01/18 07/10/22 History [Fenofibrate] allopurinoL [Zyloprim] 100 mg PO HS 09/01/18 07/10/22 History amLODIPine [Norvasc] 5 mg PO HS 09/01/18 07/10/22 History lisinopriL [Zestril] 10 mg PO DAILY 09/01/18 07/10/22 History Atorvastatin [Lipitor] 80 mg PO HS 05/16/21 07/10/22 History Ezetimibe [Zetia] 10 mg PO HS 05/16/21 07/10/22 History Dapagliflozin Propanediol [Farxiga] 5 mg PO HS 07/10/22 07/10/22 History Ergocalciferol (Vitamin D2) 1,250 mcg PO MOTH 07/10/22 07/10/22 History [Drisdol (50,000 Iu)] Prazosin HCl 2 mg PO HS 07/10/22 07/10/22 History Sertraline [Zoloft] 50 mg PO HS 07/10/22 07/10/22 History Allergies Allergy/AdvReac Type Severity Reaction Status Date / Time No Known Allergies Allergy Verified 07/10/22 18:30 Physical Exam Vitals: Vital Signs Temp Pulse Pulse Resp BP BP Pulse Ox 07/11/22 04:00 98.2 F 80 18 149/74 97 07/11/22 02:00 81 18 07/10/22 21:54 97.6 F 81 18 162/73 97 07/10/22 21:02 98.4 F 84 18 150/62 96 07/10/22 20:18 57 L 18 150/62 96 07/10/22 19:38 63 18 176/79 99 07/10/22 16:38 98.1 F 81 20 144/72 99 Intake and Output 07/10/22 07/11/22 07/11/22 22:59 06:59 14:59 Other: Voiding Method Urinal Urinal Diaper Diaper Incontinent Incontinent # Voids 1 # Bowel Movements 1 Weight 63.503 kg Results CBC & Chem 7: 07/10/22 18:34 07/10/22 21:01 Labs: Abnormal Lab Results - Last 24 Hours (Table) 07/10/22 07/10/22 07/10/22 Range/Units 18:34 18:34 20:59 Hgb 12.8 L (13.0-17.5) gm/dL Potassium 6.5 H* (3.5-5.1) mmol/L Chloride 117 H (98-107) mmol/L Carbon Dioxide 16 L (22-30) mmol/L BUN 42 H (9-20) mg/dL Creatinine 3.22 H (0.66-1.25) mg/dL Glucose 132 H (74-99) mg/dL POC Glucose (mg/dL) 66 L (70-110) mg/dL Magnesium 2.4 H (1.6-2.3) mg/dL 07/10/22 07/10/22 07/10/22 Range/Units 21:01 21:16 21:28 Hgb (13.0-17.5) gm/dL Potassium 5.4 H (3.5-5.1) mmol/L Chloride (98-107) mmol/L Carbon Dioxide (22-30) mmol/L BUN (9-20) mg/dL Creatinine (0.66-1.25) mg/dL Glucose (74-99) mg/dL POC Glucose (mg/dL) 37 L 195 H (70-110) mg/dL Magnesium (1.6-2.3) mg/dL Thrombosis Risk Factor Assmnt - Choose All That Apply Any of the Below Risk Factors Present?: No Each Risk Factor Represents 2 Points: Age 61-74 years Thrombosis Risk Factor Assessment Total Risk Factor Score: 2 Thrombosis Risk Factor Assessment Level: Low Risk
[2022-07-11 16:21] LABS: Appearance,Urine Clear (Clear); Bacteria,Urine Rare /hpf; Bilirubin,Urine Negative (Negative); Blood,Urine Trace (Negative); Color,Urine Light Yellow; Glucose,Urine (UA) 4+ (Negative); Ketones,Urine Negative (Negative); Leukocyte Esterase,Urine Negative (Negative); Nitrite,Urine Negative (Negative); Protein,Urine 3+ (Negative); RBC,Urine 1 /hpf (0-5); Specific Gravity,Urine 1.009 (1.001-1.035); Squamous Epithelial Cell,Urine <1 /hpf (0-4); Urobilinogen,Urine <2.0 mg/dL (<2.0); WBC,Urine 1 /hpf (0-5)
[2022-07-11 16:27] LABS: Creatinine,Urine Random 67.7 mg/dL
[2022-07-11 16:42] LABS: Protein/Creatinine Ratio,Urine 5.805
[2022-07-11] MEDS: allopurinoL 100 MG TAB PO SCH (21:08)
[2022-07-12 02:35] LABS: Glucose,Whole Blood 117 mg/dL (70-110)
[2022-07-12] MEDS: DEXTROSE 5% IN WATER 1,000 ML with SODIUM BICARB (1 MEQ/ML) 150 ML IV SCH ×2 (05:35→17:31)
[2022-07-12 06:00] LABS: Glucose,Whole Blood 114 mg/dL (70-110)
[2022-07-12] MEDS: SODIUM BICARBONATE TAB 650 MG TAB PO SCH ×2 (09:17→20:18)
[2022-07-12] MEDS: SODIUM ZIRCONIUM CYCLOSILICATE 10 GM PACKET PO SCH (09:17)
--- NOTE | 2022-07-12 09:48 | P.PN ---
Subjective Patient is seen for follow-up for acute kidney injury on top of chronic kidney disease NKF stage IIIB to 4 with baseline creatinine around 2. Etiology is diabetic kidney disease. Patient was admitted to the hospital with abnormal labs showing a potassium of 6.5 and serum creatinine at 3.2. No evidence of urine retention No history of NSAIDs Blood pressure is not low. Sabas inhibitors on hold Maintained on IV bicarb. No complaints today. Objective - Vital Signs Vital signs: Vital Signs Temp 98.2 F 07/12/22 08:00 Pulse 69 07/12/22 08:00 Resp 18 07/12/22 08:00 BP 169/80 07/12/22 08:00 Pulse Ox 96 07/12/22 08:00 FiO2 Intake & Output 07/11/22 07/12/22 07/12/22 18:59 06:59 18:59 Intake Total 458 898 Output Total 850 Balance 458 -850 898 Intake: Intake, IV Titration 160 Amount Dextrose 5% in Water 1, 160 000 ml @ 80 mls/hr IV . 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 Acute kidney injury, possibly prerenal. Post void bladder scan was abnormal at 222 mL. No evidence of hydronephrosis on ultrasound. UA shows 3+ protein 4+ glucose and trace blood. continue to hold SABAS inhibitor's 2. CK D stage III B to 4 with baseline creatinine around 2. Etiology is diabetic kidney disease. 24 hour urine showed about 3 g of proteinuria in 2018. 3. Hyperkalemia associated with acute kidney injury, metabolic acidosis in the setting of use of SABAS inhibitor's, currently improved need to monitor for urine retention 4. Non-gap metabolic acidosis associated with acute kidney injury 5. History of COPD Plan: Change IV bicarb Continue with oral sodium bicarb Hold lisinopril Continue to monitor for bladder retention Maintain low potassium diet. Check labs today.
[2022-07-12 11:28] LABS: Glucose,Whole Blood 177 mg/dL (70-110)
[2022-07-12 11:42] LABS: Basophils % (A) 0 %; Eosinophils # (A) 0.1 k/uL (0-0.7); Eosinophils % (A) 2 %; HCT 34.7 % (39.0-53.0); HGB 11.4 gm/dL (13.0-17.5); Lymphocytes # (A) 0.9 k/uL (1.0-4.8); Lymphocytes % (A) 14 %; MCH 28.8 pg (25.0-35.0); MCV 87.4 fL (80.0-100.0); Mean Platelet Volume 8.2; Monocytes # (A) 0.3 k/uL (0-1.0); Monocytes % (A) 5 %; Neutrophils # (A) 4.9 k/uL (1.3-7.7); Neutrophils % (A) 78 %; Platelet Count 178 k/uL (150-450); RBC 3.98 m/uL (4.30-5.90); RDW 15.3 % (11.5-15.5); WBC 6.4 k/uL (3.8-10.6)
[2022-07-12 11:43] LABS: Albumin 2.6 g/dL (3.5-5.0); Calcium 7.9 mg/dL (8.4-10.2); Potassium 4.5 mmol/L (3.5-5.1); Total Bilirubin 0.2 mg/dL (0.2-1.3); Total Protein 4.7 g/dL (6.3-8.2)
--- NOTE | 2022-07-12 13:14 | P.PN ---
Subjective Progress Note Date: 07/12/22 patient is a 66-year-old gentleman past medical history significant for coronary disease status post CABG, chronic kidney disease, diabetes mellitus who presented to the ER because of abnormal potassium levels. Patient was called in after getting routine blood work that showed elevated potassium levels. Patient didn't mention that he was feeling weak for a few weeks. Denies any problem with urination, denies any burning pain or change in frequency of micturition. Patient was worked up in the ER, initial lab work showed white count of 8.1, hemoglobin 12.8, platelet count 190, sodium 139, potassium 6.5, chloride 117, BUN 42, creatinine 3.22. Patient was given potassium shifters in the ER and was admitted to internal medicine service. 07/12. Patient seen and examined. States lethargy has improved, denies any lightheadedness or dizziness. Sodium this morning is 134, potassium is 4.5, creatinine is 2.25 REVIEW OF SYSTEMS: CONSTITUTIONAL: No fever, no malaise,. CARDIOVASCULAR: No chest pain, no palpitations, no syncope. PULMONARY: No shortness of breath, no cough, GASTROINTESTINAL: No diarrhea, no nausea, no vomiting, no abdominal pain. NEUROLOGICAL: No headaches, no weakness, PHYSICAL EXAMINATION: GENERAL: The patient is alert and oriented x3, not in any acute distress. Well developed, well nourished. HEENT: Pupils are round and equally reacting to light. EOMI. No scleral icterus. No conjunctival pallor. Normocephalic, atraumatic. No pharyngeal erythema. No thyromegaly. CARDIOVASCULAR: S1 and S2 present. No murmurs, rubs, or gallops. PULMONARY: Chest is clear to auscultation, no wheezing or crackles. ABDOMEN: Soft, nontender, nondistended, normoactive bowel sounds. No palpable organomegaly. MUSCULOSKELETAL: No joint swelling or deformity. EXTREMITIES: No cyanosis, clubbing, or pedal edema. NEUROLOGICAL: Gross neurological examination did not reveal any focal deficits. SKIN: No rashes. Assessment and plan Hyperkalemia Acute on chronic kidney disease Non-anion gap metabolic acidosis Hypertension Hyperlipidemia [id number] diabetes mellitus Depression History of coronary artery disease Plan; Monitor vital signs Monitor CBC Monitor CMP Telemetry monitoring Strict I's and O's Daily weights Avoid nephrotoxic agents DC lisinopril because of hyperkalemia Continue IV fluids, Continue oral sodium bicarb tablets ultrasound of kidneys done showed no hydronephrosis or nephrolithiasis, multiple bilateral simple renal cysts, abnormal post void residual of 222 Avoid hypotension Continue sliding scale insulin Continue home meds Follow-up on nephrology recommendations Objective - Vital Signs Vital signs: Vital Signs Temp 98.2 F 07/12/22 08:00 Pulse 69 07/12/22 08:00 Resp 18 07/12/22 08:00 BP 169/80 07/12/22 08:00 Pulse Ox 96 07/12/22 08:00 FiO2 Intake & Output 07/11/22 07/12/22 07/12/22 18:59 06:59 18:59 Intake Total 458 898 Output Total 850 Balance 458 -850 898 Intake: Intake, IV Titration 160 Amount Dextrose 5% in Water 1, 160 000 ml @ 80 mls/hr IV . [id number] TERESA with Sodium Bicarb (1 Meq/ml) 150 ml Rx#:[id number] Oral 298 898 Output: Urine 850 Other: Voiding Method Urinal Urinal Urinal Diaper Diaper Diaper Incontinent Incontinent Incontinent - Labs CBC & Chem 7: 07/12/22 10:39 07/12/22 10:39 Labs: Abnormal Lab Results - Last 24 Hours (Table) 07/11/22 07/12/22 07/12/22 Range/Units 12:28 02:32 05:55 POC Glucose (mg/dL) 117 H 114 H (70-110) mg/dL Urine Protein 3+ H (Negative) Urine Glucose (UA) 4+ H (Negative) Urine Blood Trace H (Negative) Urine Bacteria Rare H (None) /hpf
[2022-07-12 16:31] LABS: Glucose,Whole Blood 165 mg/dL (70-110)
[2022-07-12] MEDS: ATORVASTATIN 80 MG TAB PO SCH (20:18)
[2022-07-12] MEDS: allopurinoL 100 MG TAB PO SCH (20:18)
[2022-07-12] MEDS: EZETIMIBE 10 MG TAB PO SCH (20:18)
[2022-07-12] MEDS: amLODIPine 5 MG TAB PO SCH (20:18)
[2022-07-12] MEDS: ASPIRIN 81 MG PO SCH (20:18)
[2022-07-12] MEDS: FENOFIBRATE 160 MG TAB PO SCH (20:18)
[2022-07-12] MEDS: PRAZOSIN 1 MG CAP PO SCH (20:18)
[2022-07-12] MEDS: SERTRALINE 50 MG TAB PO SCH (20:18)
[2022-07-12 20:44] LABS: Glucose,Whole Blood 190 mg/dL (70-110)
[2022-07-13 06:04] LABS: Glucose,Whole Blood 135 mg/dL (70-110)
[2022-07-13 06:09] LABS: Basophils % (A) 0 %; Eosinophils # (A) 0.2 k/uL (0-0.7); Eosinophils % (A) 3 %; HCT 33.8 % (39.0-53.0); HGB 11.3 gm/dL (13.0-17.5); Lymphocytes # (A) 1.1 k/uL (1.0-4.8); Lymphocytes % (A) 16 %; MCH 29.3 pg (25.0-35.0); MCHC 33.5 g/dL (31.0-37.0); MCV 87.4 fL (80.0-100.0); Mean Platelet Volume 7.8; Monocytes # (A) 0.5 k/uL (0-1.0); Monocytes % (A) 8 %; Neutrophils # (A) 4.9 k/uL (1.3-7.7); Neutrophils % (A) 71 %; Platelet Count 162 k/uL (150-450); RBC 3.87 m/uL (4.30-5.90); RDW 14.8 % (11.5-15.5); WBC 6.9 k/uL (3.8-10.6)
[2022-07-13] MEDS: DEXTROSE 5% IN WATER 1,000 ML with SODIUM BICARB (1 MEQ/ML) 150 ML IV SCH (06:09)
[2022-07-13 06:22] LABS: Albumin 2.7 g/dL (3.5-5.0); Potassium 4.1 mmol/L (3.5-5.1); Total Bilirubin 0.3 mg/dL (0.2-1.3); Total Protein 4.7 g/dL (6.3-8.2)
[2022-07-13] MEDS: SODIUM BICARBONATE TAB 650 MG TAB PO SCH (07:44)
[2022-07-13] MEDS: SODIUM ZIRCONIUM CYCLOSILICATE 10 GM PACKET PO SCH (07:50)
--- NOTE | 2022-07-13 11:20 | P.PN ---
Subjective Patient is seen in follow-up for acute kidney injury on chronic kidney disease. GFR back to baseline. Oral intake is good. No vomiting or diarrhea. Vital signs are stable. General: No acute distress. HEENT: Head exam is unremarkable. LUNGS: No audible rhonchi or wheezes. HEART: Rate and Rhythm are regular. ABDOMEN: Nontender. EXTREMITITES: No edema. Objective - Vital Signs Vital signs: Vital Signs Temp 98.5 F 07/13/22 07:19 Pulse 61 07/13/22 10:47 Resp 18 07/13/22 09:04 BP 171/74 07/13/22 10:47 Pulse Ox 91 L 07/13/22 10:47 FiO2 Intake & Output 07/12/22 07/13/22 07/13/22 18:59 06:59 18:59 Intake Total 1934 200 Output Total 600 1110 Balance 1334 -1110 200 Intake: Intake, IV Titration 800 Amount Dextrose 5% in Water 1, 800 000 ml @ 80 mls/hr IV . [id number] TERESA with Sodium Bicarb (1 Meq/ml) 150 ml Rx#:[id number] Oral 1134 200 Output: Urine 600 1110 Other: Voiding Method Urinal Urinal Urinal Diaper Diaper Diaper Incontinent Incontinent Incontinent # Voids 1 # Bowel Movements 1 1 - Labs CBC & Chem 7: 07/13/22 05:36 07/13/22 05:36 Labs: Abnormal Lab Results - Last 24 Hours (Table) 07/12/22 07/12/22 07/12/22 Range/Units 10:39 10:39 11:27 RBC 3.98 L (4.30-5.90) m/uL Hgb 11.4 L (13.0-17.5) gm/dL Hct 34.7 L (39.0-53.0) % Lymphocytes # 0.9 L (1.0-4.8) k/uL Sodium 134 L (137-145) mmol/L BUN 28 H (9-20) mg/dL Creatinine 2.25 H (0.66-1.25) mg/dL Glucose 159 H (74-99) mg/dL POC Glucose (mg/dL) 177 H (70-110) mg/dL Calcium 7.9 L (8.4-10.2) mg/dL AST 14 L (17-59) U/L Total Protein 4.7 L (6.3-8.2) g/dL Albumin 2.6 L (3.5-5.0) g/dL 07/12/22 07/12/22 07/13/22 Range/Units 16:27 20:43 05:36 RBC 3.87 L (4.30-5.90) m/uL Hgb 11.3 L (13.0-17.5) gm/dL Hct 33.8 L (39.0-53.0) % Lymphocytes # (1.0-4.8) k/uL Sodium (137-145) mmol/L BUN (9-20) mg/dL Creatinine (0.66-1.25) mg/dL Glucose (74-99) mg/dL POC Glucose (mg/dL) 165 H 190 H (70-110) mg/dL Calcium (8.4-10.2) mg/dL AST (17-59) U/L Total Protein (6.3-8.2) g/dL Albumin (3.5-5.0) g/dL 07/13/22 07/13/22 Range/Units 05:36 06:02 RBC (4.30-5.90) m/uL Hgb (13.0-17.5) gm/dL Hct (39.0-53.0) % Lymphocytes # (1.0-4.8) k/uL Sodium (137-145) mmol/L BUN 26 H (9-20) mg/dL Creatinine 2.14 H (0.66-1.25) mg/dL Glucose 121 H (74-99) mg/dL POC Glucose (mg/dL) 135 H (70-110) mg/dL Calcium 8.0 L (8.4-10.2) mg/dL AST 15 L (17-59) U/L Total Protein 4.7 L (6.3-8.2) g/dL Albumin 2.7 L (3.5-5.0) g/dL Assessment and Plan Plan: Assessment: 1. Acute kidney injury mostly prerenal improved with IV hydration. GFR back to baseline. No hydronephrosis noted on ultrasound. 2. Metabolic acidosis secondary to acute kidney injury maintained on bicarb drip. Resolved. 3. Chronic kidney disease stage IIIB/4 with baseline creatinine near 2 secondary to diabetic kidney disease. 4. Hypertension with chronic kidney disease. 5. Diabetes mellitus. 6. Hyperkalemia secondary to acute kidney injury and acidosis. Resolved. Plan: Hold lisinopril for now. We will consider restarting outpatient if renal function and potassium level stable. Increase amlodipine dose to 5 mg twice daily. Stop IV fluids. Stop oral bicarb. Okay to resume farxiga as well. Patient advised to monitor blood pressure at home and notify physician if staying above 140/90. Follow up outpatient in 1 week post discharge. Repeat BMP and magnesium level 2-3 days post discharge.
[2022-07-13 11:23] LABS: Glucose,Whole Blood 154 mg/dL (70-110)
[2022-07-13] MEDS ORDERED: amLODIPine 10 MG TAB PO SCH (11:30)
[2022-07-13] MEDS ORDERED: amLODIPine 5 MG TAB PO SCH ×2 (11:45→21:00)
[2022-07-13] MEDS ORDERED: hydrALAZINE HCL 20 MG/ML 1 ML VIAL IVP PRN (13:07)
--- NOTE | 2022-07-13 13:14 | P.DS ---
Providers Date of admission: 07/10/22 20:00 Expected date of discharge: 07/13/22 Attending physician: Marcos Crow MD Consults: 07/10/22 19:59 Consult Physician Routine Consulting Provider: Alina Montenegro Consult Reason/Comments: hyperkalemia Do you want consulting provider notified?: Already Contacted Primary care physician: [facility] Course: Discharge diagnoses; Hyperkalemia Acute on chronic kidney disease Non-anion gap metabolic acidosis Hypertension Hyperlipidemia Lak-aflzwwy-cdpxfuyjo diabetes mellitus Depression History of coronary artery disease Hospital course; patient is a 66-year-old gentleman past medical history significant for coronary disease status post CABG, chronic kidney disease, diabetes mellitus who presented to the ER because of abnormal potassium levels. Patient was called in after getting routine blood work that showed elevated potassium levels. Patient didn't mention that he was feeling weak for a few weeks. Denies any problem with urination, denies any burning pain or change in frequency of micturition. Patient was worked up in the ER, initial lab work showed white count of 8.1, hemoglobin 12.8, platelet count 190, sodium 139, potassium 6.5, chloride 117, BUN 42, creatinine 3.22. Patient was given potassium shifters in the ER and was admitted to internal medicine service. 07/12. Patient seen and examined. States lethargy has improved, denies any lightheadedness or dizziness. Sodium this morning is 134, potassium is 4.5, creatinine is 2.25 07/13. Patient seen and examined. Patient blood pressure was elevated, dose of Norvasc increased to 10 mg at discharge. Nephrology recommended discontinuing lisinopril and sodium bicarb tablets at this time PHYSICAL EXAMINATION: GENERAL: The patient is alert and oriented x3, not in any acute distress. Well developed, well nourished. HEENT: Pupils are round and equally reacting to light. EOMI. No scleral icterus. No conjunctival pallor. Normocephalic, atraumatic. No pharyngeal erythema. No thyromegaly. CARDIOVASCULAR: S1 and S2 present. No murmurs, rubs, or gallops. PULMONARY: Chest is clear to auscultation, no wheezing or crackles. ABDOMEN: Soft, nontender, nondistended, normoactive bowel sounds. No palpable organomegaly. MUSCULOSKELETAL: No joint swelling or deformity. EXTREMITIES: No cyanosis, clubbing, or pedal edema. NEUROLOGICAL: Gross neurological examination did not reveal any focal deficits. SKIN: No rashes. Patient Condition at Discharge: Good Plan - Discharge Summary Discharge Rx Participant: No New Discharge Prescriptions: Continue Sodium Bicarbonate Tab 650 mg PO BID tab Aspirin [Adult Low Dose Aspirin EC] 81 mg PO HS allopurinoL [Zyloprim] 100 mg PO HS Fenofibrate Nanocrystallized [Fenofibrate] 145 mg PO HS Ezetimibe [Zetia] 10 mg PO HS Atorvastatin [Lipitor] 80 mg PO HS Dapagliflozin Propanediol [Farxiga] 5 mg PO HS Ergocalciferol (Vitamin D2) [Drisdol (50,000 Iu)] 1,250 mcg PO MOTH Prazosin HCl 2 mg PO HS Sertraline [Zoloft] 50 mg PO HS Changed amLODIPine [Norvasc] 10 mg PO DAILY #30 tab Discontinued lisinopriL [Zestril] 10 mg PO DAILY Discharge Medication List Aspirin [Adult Low Dose Aspirin EC] 81 mg PO HS 01/26/17 [History] Fenofibrate Nanocrystallized [Fenofibrate] 145 mg PO HS 09/01/18 [History] allopurinoL [Zyloprim] 100 mg PO HS 09/01/18 [History] Atorvastatin [Lipitor] 80 mg PO HS 05/16/21 [History] Ezetimibe [Zetia] 10 mg PO HS 05/16/21 [History] Dapagliflozin Propanediol [Farxiga] 5 mg PO HS 07/10/22 [History] Ergocalciferol (Vitamin D2) [Drisdol (50,000 Iu)] 1,250 mcg PO MOTH 07/10/22 [History] Prazosin HCl 2 mg PO HS 07/10/22 [History] Sertraline [Zoloft] 50 mg PO HS 07/10/22 [History] amLODIPine [Norvasc] 10 mg PO DAILY #30 tab 07/13/22 [Rx] Follow up Appointment(s)/Referral(s): Ashok Hidalgo MD [Primary Care Provider] - 1-2 days Alina Montenegro MD [STAFF PHYSICIAN] - 1 Week Discharge Disposition: HOME SELF-CARE
[2022-07-13 13:55] VITALS: BP 167/67; PULSE 68; RESP 17; TEMP 98.9
[2022-07-13 16:30] LABS: Glucose,Whole Blood 116 mg/dL (70-110)
== END 2022-07-13 18:18 | disposition home or self-care (01) | DRG 683 ==
LOC: EC 16:06 → 3SCARD 20:00 → 4SSUR 07-12 22:31
PROVIDERS: ADMIT Internal Medicine; ATTEND Internal Medicine
DX: N17.9 Acute kidney failure, unspecified (principal); E87.20 Acidosis, unspecified; I13.0 Hypertensive heart and chronic kidney disease with heart failure and stage 1 through stage 4 chronic kidney disease, or unspecified chronic kidney disease; E87.5 Hyperkalemia; E78.5 Hyperlipidemia, unspecified; F32.A Depression, unspecified; F41.9 Anxiety disorder, unspecified; N18.32 Chronic kidney disease, stage 3b; E11.22 Type 2 diabetes mellitus with diabetic chronic kidney disease; J44.9 Chronic obstructive pulmonary disease, unspecified; F17.210 Nicotine dependence, cigarettes, uncomplicated; Z71.6 Tobacco abuse counseling; I50.9 Heart failure, unspecified; I25.10 Atherosclerotic heart disease of native coronary artery without angina pectoris; Z86.73 Personal history of transient ischemic attack (TIA), and cerebral infarction without residual deficits; M19.90 Unspecified osteoarthritis, unspecified site; Z95.1 Presence of aortocoronary bypass graft; Z79.4 Long term (current) use of insulin; Z79.84 Long term (current) use of oral hypoglycemic drugs; Z79.82 Long term (current) use of aspirin; Z79.899 Other long term (current) drug therapy; Z96.643 Presence of artificial hip joint, bilateral; Z82.49 Family history of ischemic heart disease and other diseases of the circulatory system; Z87.19 Personal history of other diseases of the digestive system
CPT/HCPCS: 36415; 76770; 80048; 80053; 81001; 82570; 83735; 84132; 84156; 85025; 93005; 96361; 96374; 99291

== ENCOUNTER 2022-07-14 12:45 | Observation (INO) | payer MEDICARE ==
--- NOTE | 2022-07-14 14:45 | ED ---
Dizziness HPI - General Source: patient, family Mode of arrival: ambulatory Limitations: physical limitation <Olga Fletcher - Last Filed: 07/14/22 14:45> - General Source: RN notes reviewed, old records reviewed <Dominic Hand - Last Filed: 07/14/22 19:39> - General Chief Complaint: Dizziness Stated Complaint: feels like passing out Time Seen by Provider: 07/14/22 14:44 - History of Present Illness Initial Comments: 58-year-old male with an extensive past medical history presents the emergency department with a chief complaint of dizziness and "feeling like he is going to pass out." That started this morning. He denies any chest pain, shortness of breath. He does report accompanied symptoms of "chest tightness." (Olga Fletcher) This is a 66-year-old male who presents emergency Department states that he was in the emergency room recently admitted to the hospital for high potassium and then was In hospital couple of days because his blood pressure was high. Patient states she was discharged home yesterday and today at home his blood pressures been fine however he almost passed out at least 4-5 occasions today. Patient states typically occurs when he stands up. Patient states he's had no chest pain palpitations difficulty breathing shortest breath per patient denies any fever chills or cough per patient denies any abdominal pain patient denies any nausea vomiting or diarrhea. Patient states he did eat normally at home and a short time that he was home. (Dominic Hand) - Related Data Home Medications Medication Instructions Recorded Confirmed Aspirin [Adult Low Dose Aspirin EC] 81 mg PO HS 01/26/17 07/14/22 Fenofibrate Nanocrystallized 145 mg PO HS 09/01/18 07/14/22 [Fenofibrate] allopurinoL [Zyloprim] 100 mg PO HS 09/01/18 07/14/22 Atorvastatin [Lipitor] 80 mg PO HS 05/16/21 07/14/22 Ezetimibe [Zetia] 10 mg PO HS 05/16/21 07/14/22 Dapagliflozin Propanediol [Farxiga] 5 mg PO HS 07/10/22 07/14/22 Ergocalciferol (Vitamin D2) 1,250 mcg PO MOTH 07/10/22 07/14/22 [Drisdol (50,000 Iu)] Prazosin HCl 2 mg PO HS 07/10/22 07/14/22 Sertraline [Zoloft] 50 mg PO HS 07/10/22 07/14/22 amLODIPine [Norvasc] 10 mg PO HS 07/14/22 07/14/22 Allergies Allergy/AdvReac Type Severity Reaction Status Date / Time No Known Allergies Allergy Verified 07/14/22 17:04 Review of Systems ROS Other: All systems not noted in ROS Statement are negative. <Olga Fletcher - Last Filed: 07/14/22 14:45> ROS Other: All systems not noted in ROS Statement are negative. <Dominic Hand - Last Filed: 07/14/22 19:39> ROS Statement: Those systems with pertinent positive or pertinent negative responses have been documented in the HPI. Past Medical History Past Medical History: Coronary Artery Disease (CAD), Chest Pain / Angina, Heart Failure, COPD, CVA/TIA, Diabetes Mellitus, Hyperlipidemia, Hypertension, O steoarthritis (OA), Prostate Disorder, Renal Disease, Sleep Apnea/CPAP/BIPAP, Supraventricular Tachycardia (SVT), Syncope, Vascular Disorder Additional Past Medical History / Comment(s): BACK PAIN , CVA 2013 and TIA 2014- short-term memory problems, rt side still slightly weaker , hx occ double vision & vertigo, tinnitus., sleep apnea (no machine), states kidney disease im proving, uses walker prn., states sore on his tailbone.,wears continues glucose monitor on abd., states positive cologard., urine incontinence -wears pads History of Any Multi-Drug Resistant Organisms: None Reported Past Surgical History: Appendectomy, Coronary Bypass/CABG, Heart Catheterization, Hernia Repair, Joint Replacement Additional Past Surgical History / Comment(s): RIGHT HIP REPLACEMENT 2002. Left hip arthroplasty anterior approach 09/09/2018. Quadruple Bypass . Past Anesthesia/Blood Transfusion Reactions: No Reported Reaction Past Psychological History: Anxiety, Depression Smoking Status: Current every day smoker Past Alcohol Use History: Rare Past Drug Use History: Marijuana - Past Family History Father Family Medical History: Myocardial Infarction ([place]) Mother Family Medical History: Coronary Artery Disease (CAD) Daughter(s) Family Medical History: No Reported History Son(s) Family Medical History: No Reported History <Olga Fletcher - Last Filed: 07/14/22 14:45> General Exam Limitations: physical limitation <Olga Fletcher - Last Filed: 07/14/22 14:45> <Dominic Hand - Last Filed: 07/14/22 19:39> - General Exam Comments Initial Comments: Visual Physical Exam Vital signs reviewed General: Well-appearing, nontoxic, no acute distress. Head: Normocephalic, atraumatic Eyes: PERRLA, EOMI ENT: Airway patent Chest: Nonlabored breathing Skin: No visual rash, normal skin tone Neuro: Alert and oriented 3 Musculoskeletal: No gross abnormalities (Olga Fletcher) GENERAL: Patient is well-developed and well-nourished. Patient is nontoxic and well- hydrated and is in no acute distress. ENT: Neck is soft and supple. No significant lymphadenopathy is noted. Oropharynx is clear. Moist mucous membranes. Neck has full range of motion without eliciting any pain. EYES: The sclera were anicteric and conjunctiva were pink and moist. Extraocular movements were intact and pupils were equal round and reactive to light. Ey elids were unremarkable. PULMONARY: Unlabored respirations. Good breath sounds bilaterally. No audible rales rhonchi or wheezing was noted. CARDIOVASCULAR: There is a regular rate and rhythm without any murmurs gallops or rubs. ABDOMEN: Soft and nontender with normal bowel sounds. SKIN: Skin is clear with no lesions or rashes and otherwise unremarkable. NEUROLOGIC: Patient is alert and oriented x3. Cranial nerves II through XII are grossly intact. Motor and sensory are also intact. Normal speech, volume and content. MUSCULOSKELETAL: Normal extremities with adequate strength and full range of motion. No lower extremity swelling or edema. No calf tenderness. LYMPHATICS: No significant lymphadenopathy is noted PSYCHIATRIC: Normal psychiatric evaluation. (Dominic Hand) Course Vital Signs 07/14/22 07/14/22 07/14/22 12:55 16:00 16:03 Temperature 97.7 F Pulse Rate 61 Respiratory 18 Rate Blood Pressure 163/83 Blood Pressure 157/67 184/80 [Right Arm] O2 Sat by Pulse 100 Oximetry 07/14/22 07/14/22 07/14/22 16:05 16:26 17:10 Temperature Pulse Rate 60 65 Respiratory 20 18 Rate Blood Pressure 174/91 182/77 Blood Pressure 160/77 [Right Arm] O2 Sat by Pulse 98 96 Oximetry Medical Decision Making - Lab Data Result diagrams: 07/14/22 15:28 07/14/22 15:28 <Dominic Hand - Last Filed: 07/14/22 19:39> - Medical Decision Making EKG is interpreted by myself shows a sinus bradycardia 57 bpm OR interval 160 QRS is 106 QT interval is 490 QTC is 403. Patient's EKG shows T-wave inversions in II, III, and F aVF as well as V5 and V6 which was seen on previous EKG. Second EKG was interpreted by myself shows a sinus bradycardia 57 bpm OR interval is on a 52 QRS is 102 QT interval is 408 QTC is 41 per patient's EKG shows no T-wave inversions in the inferior leads however there is still an T- wave inversion in the lateral leads V6 Was pt. sent in by a medical professional or institution (, PA, UR COORDINATOR, urgent care, hospital, or [facility]...) When possible be specific @ -No Did you speak to anyone other than the patient for history (EMS, parent, family, police, friend...)? What history was obtained from this source @ - gives quite a bit of a history Did you review nursing and triage notes (agree or disagree)? Why? @ -I reviewed and agree with nursing and triage notes Were old charts reviewed (outside hosp., previous admission, EMS record, old EKG, old radiological studies, urgent care reports/EKG's, chcf records)? Report findings @ -I reviewed prior charts in prior lab work Differential Diagnosis (chest pain, altered mental status, abdominal pain women, abdominal pain men, vaginal bleeding, weakness, fever, dyspnea, syncope, headache, dizziness, GI bleed, back pain, seizure, CVA, palpatations, mental health, musculoskeletal)? @ -Differential Syncope: Valvular disease, hypertrophic cardiomyopathy, pulmonary embolism, tamponade, tachycardia, bradycardia, GA, hypovolemia, hemorrhage, dissection, anemia, intracranial hemorrhage, seizure, hypoglycemia, carbon monoxide poisoning, this is not meant to be an all-inclusive list. EKG interpreted by me (3pts min.). @ -As above X-rays interpreted by me (1pt min.). @ -Chest x-ray was interpreted by myself and shows no acute abnormality CT interpreted by me (1pt min.). @ -None done U/S interpreted by me (1pt. min.). @ -None done What testing was considered but not performed or refused? (CT, X-rays, U/S, labs)? Why? @ -None What meds were considered but not given or refused? Why? @ -None Did you discuss the management of the patient with other professionals (professionals i.e. , PA, UR COORDINATOR, lab, RT, psych nurse, social contact worker, gmat tutor, teacher, global safety officer, case management associate)? Give summary @ -I spoke with [facility] agreed to admit the patient minute the patient wrote admitting orders Was smoking cessation discussed for >3mins.? @ -No Was critical care preformed (if so, how long)? @ -No Were there social determinants of health that impacted care today? How? (Homelessness, low income, unemployed, alcoholism, drug addiction, transportation, low edu. Level, literacy, decrease access to med. care, alf, rehab)? @ -No Was there de-escalation of care discussed even if they declined (Discuss DNR or withdrawal of care, Hospice)? DNR status @ -No What co-morbidities impacted this encounter? (DM, HTN, Smoking, COPD, CAD, Cancer, CVA, ARF, Chemo, Hep., AIDS, mental health diagnosis, sleep apnea, morbid obesity)? @ -None Was patient admitted / discharged? Hospital course, mention meds given and route, prescriptions, significant lab abnormalities, going to OR and other pertinent info. @ -Patient had no near syncopal episodes during the ER visit. Lab work came back it was all within normal range. I spoke with [facility] agreed to admit the patient admitted the patient I consult the neurology Undiagnosed new problem with uncertain prognosis? @ -No Drug Therapy requiring intensive monitoring for toxicity (Heparin, Nitro, Insu marcin, Cardizem)? @ -No Were any procedures done? @ -No Diagnosis/symptom? @ -Multiplenear syncopal episodes Acute, or Chronic, or Acute on Chronic? @ -Acute Uncomplicated (without systemic symptoms) or Complicated (systemic symptoms)? @ -Complicated Side effects of treatment? @ -No Exacerbation, Progression, or Severe Exacerbation? @ -No Poses a threat to life or bodily function? How? (Chest pain, USA, GA, pneumonia, PE, COPD, DKA, ARF, appy, cholecystitis, CVA, Diverticulitis, Homicidal, Suicidal, threat to staff... and all critical care pts) @ -No (Dominic Hand) - Lab Data Lab Results 07/14/22 07/14/22 07/14/22 Range/Units 15:28 15:28 15:28 WBC 10.2 (3.8-10.6) k/uL RBC 4.43 (4.30-5.90) m/uL Hgb 13.0 (13.0-17.5) gm/dL Hct 39.2 (39.0-53.0) % MCV 88.3 (80.0-100.0) fL MCH 29.2 (25.0-35.0) pg MCHC 33.1 (31.0-37.0) g/dL RDW 14.7 (11.5-15.5) % Plt Count 176 (150-450) k/uL MPV 8.0 Neutrophils % 78 % Lymphocytes % 14 % Monocytes % 5 % Eosinophils % 2 % Basophils % 0 % Neutrophils # 7.9 H (1.3-7.7) k/uL Lymphocytes # 1.5 (1.0-4.8) k/uL Monocytes # 0.5 (0-1.0) k/uL Eosinophils # 0.2 (0-0.7) k/uL Basophils # 0.0 (0-0.2) k/uL PT 10.8 (9.0-12.0) sec INR 1.0 (<1.2) APTT 26.3 (22.0-30.0) sec Sodium 138 (137-145) mmol/L Potassium 5.0 (3.5-5.1) mmol/L Chloride 106 (98-107) mmol/L Carbon Dioxide 24 (22-30) mmol/L Anion Gap 8 mmol/L BUN 27 H (9-20) mg/dL Creatinine 2.33 H (0.66-1.25) mg/dL Est GFR (CKD-EPI)AfAm 32 (>60 ml/min/1.73 sqM) Est GFR (CKD-EPI)NonAf 28 (>60 ml/min/1.73 sqM) Glucose 99 (74-99) mg/dL POC Glucose (mg/dL) (70-110) mg/dL POC Glu Nutrition Aide ID Calcium 8.4 (8.4-10.2) mg/dL Total Bilirubin 0.5 (0.2-1.3) mg/dL AST 21 (17-59) U/L ALT 15 (4-49) U/L Alkaline Phosphatase 48 (38-126) U/L Troponin I (0.000-0.034) ng/mL Total Protein 5.7 L (6.3-8.2) g/dL Albumin 3.4 L (3.5-5.0) g/dL Influenza Type A (PCR) (Not Detectd) Influenza Type B (PCR) (Not Detectd) RSV (PCR) (Not Detectd) SARS-CoV-2 (PCR) (Not Detectd) 07/14/22 07/14/22 07/14/22 Range/Units 15:28 15:28 16:42 WBC (3.8-10.6) k/uL RBC (4.30-5.90) m/uL Hgb (13.0-17.5) gm/dL Hct (39.0-53.0) % MCV (80.0-100.0) fL MCH (25.0-35.0) pg MCHC (31.0-37.0) g/dL RDW (11.5-15.5) % Plt Count (150-450) k/uL MPV Neutrophils % % Lymphocytes % % Monocytes % % Eosinophils % % Basophils % % Neutrophils # (1.3-7.7) k/uL Lymphocytes # (1.0-4.8) k/uL Monocytes # (0-1.0) k/uL Eosinophils # (0-0.7) k/uL Basophils # (0-0.2) k/uL PT (9.0-12.0) sec INR (<1.2) APTT (22.0-30.0) sec Sodium (137-145) mmol/L Potassium (3.5-5.1) mmol/L Chloride (98-107) mmol/L Carbon Dioxide (22-30) mmol/L Anion Gap mmol/L BUN (9-20) mg/dL Creatinine (0.66-1.25) mg/dL Est GFR (CKD-EPI)AfAm (>60 ml/min/1.73 sqM) Est GFR (CKD-EPI)NonAf (>60 ml/min/1.73 sqM) Glucose (74-99) mg/dL POC Glucose (mg/dL) 196 H (70-110) mg/dL POC Glu Nutrition Aide ID Lakisha López Calcium (8.4-10.2) mg/dL Total Bilirubin (0.2-1.3) mg/dL AST (17-59) U/L ALT (4-49) U/L Alkaline Phosphatase (38-126) U/L Troponin I 0.017 (0.000-0.034) ng/mL Total Protein (6.3-8.2) g/dL Albumin (3.5-5.0) g/dL Influenza Type A (PCR) Not Detected (Not Detectd) Influenza Type B (PCR) Not Detected (Not Detectd) RSV (PCR) Not Detected (Not Detectd) SARS-CoV-2 (PCR) Not Detected (Not Detectd) Disposition <Olga Fletcher - Last Filed: 07/14/22 14:45> Time of Disposition: 19:39 <Dominic Hand - Last Filed: 07/14/22 19:39> Clinical Impression: Near syncope Disposition: ADMITTED IP TO THIS HOSP Referrals: Ashok Hidalgo MD [Primary Care Provider] - 1-2 days
[2022-07-14 15:49] LABS: Basophils % (A) 0 %; Eosinophils # (A) 0.2 k/uL (0-0.7); Eosinophils % (A) 2 %; HCT 39.2 % (39.0-53.0); Lymphocytes # (A) 1.5 k/uL (1.0-4.8); Lymphocytes % (A) 14 %; MCH 29.2 pg (25.0-35.0); MCHC 33.1 g/dL (31.0-37.0); MCV 88.3 fL (80.0-100.0); Monocytes # (A) 0.5 k/uL (0-1.0); Monocytes % (A) 5 %; Neutrophils # (A) 7.9 k/uL (1.3-7.7); Neutrophils % (A) 78 %; Platelet Count 176 k/uL (150-450); RBC 4.43 m/uL (4.30-5.90); RDW 14.7 % (11.5-15.5); WBC 10.2 k/uL (3.8-10.6)
[2022-07-14 15:58] LABS: Partial Thromboplastin Time 26.3 sec (22.0-30.0); Prothrombin Time 10.8 sec (9.0-12.0)
[2022-07-14 16:26] LABS: Albumin 3.4 g/dL (3.5-5.0); Calcium 8.4 mg/dL (8.4-10.2); Total Bilirubin 0.5 mg/dL (0.2-1.3); Total Protein 5.7 g/dL (6.3-8.2)
[2022-07-14 16:44] LABS: Glucose,Whole Blood 196 mg/dL (70-110)
[2022-07-14] MEDS ORDERED: SODIUM CHLORIDE 0.9% 1,000 ML IV ONE (19:41)
[2022-07-14] MEDS: ATORVASTATIN 80 MG TAB PO SCH ×2 (20:27)
[2022-07-14] MEDS ORDERED: amLODIPine 10 MG TAB PO SCH (21:00)
[2022-07-14] MEDS ORDERED: EZETIMIBE 10 MG TAB PO SCH (21:00)
[2022-07-14] MEDS ORDERED: DAPAGLIFLOZIN PROPANEDIOL 5 MG TABLET PO SCH (21:00)
[2022-07-14] MEDS ORDERED: SERTRALINE 50 MG TAB PO SCH (21:00)
[2022-07-14] MEDS ORDERED: FENOFIBRATE 160 MG TAB PO SCH (21:00)
[2022-07-14] MEDS ORDERED: PRAZOSIN 1 MG CAP PO SCH (21:00)
[2022-07-15 11:38] LABS: Glucose,Whole Blood 210 mg/dL (70-110)
--- NOTE | 2022-07-15 11:44 | P.CNNES ---
History of Present Illness Consult date: 07/15/22 Requesting physician: Dominic Hand Reason for Consult: Near syncope History of Present Illness: Patient is a 66-year-old right-handed male, with history of hypertension, diabetes, previous stroke, with mild residual deficits, renal disease, came to the hospital yesterday at 12:45 PM for dizziness. Patient states that last Wednesday he went for a blood check. He was called by the doctor that his potassium was dangerously high and was told to be admitted to the hospital. Patient says that his medications were adjusted, lisinopril discontinued and started on amlodipine. Patient says that he stayed in the hospital for 3 days and was discharged. However his pre-existing dizziness got worse, felt will almost pass out. Therefore he came to the hospital. He denies any losing consciousness, passing out. Patient says that he has dizziness for a very long time. He gets dizzy when he gets up or if he is standing, or with any physical exertion. It does not happen when he is sitting or laying still. He also gets dizzy when he is rolling over in the bed or looking up, but not looking down. It is more of lightheadedness, not vertigo. He denies any double vision, loss of vision, or any focal symptoms otherwise. Vital signs arrival blood pressure 163/83, pulse rate 61 temperature 97.7. Blood test shows normal CBC, PT/PTT, electrolytes are normal. BUN 27, creatinine 2.33. Hepatic panel is normal, troponin negative. Influenza, RSV and darling virus PCR negative. EKG shows sinus bradycardia with heart rate 57. Patient had a normal EEG on 10/21/2015. Patient states he has history of a stroke which affected his right side of the body in 2013. He still has very mild residual weakness on the right side, and he walks with a limp. He uses either cane or a walker most of the time. He lives with his . He has developed incontinence for which she uses depends for last 1 year. Patient states he has hypertension, diabetes for last 20 years, chronic renal disease. He has smoked 2 packs per day for 40 years, stopped smoking cigarettes and started smoking cigarello, about 4 per day since 2016. He denies any alcohol use. Review of Systems Constitutional: Reports weight loss, Denies chills, Denies chronic headaches, Denies fever Eyes: right bulging eye, denies blurred vision, denies diplopia, denies pain Ears: bilateral: tinnitus, deny: decreased hearing, ear discharge, earache Ears, nose, mouth and throat: Denies headache, Denies sore throat Cardiovascular: Denies chest pain, Denies shortness of breath Respiratory: Denies cough, Denies excessive sputum, Denies wheezing Gastrointestinal: Denies abdominal pain, Denies diarrhea, Denies nausea, Denies vomiting Genitourinary: Reports incontinence, Reports urinary frequency, Denies hematuria Musculoskeletal: Reports low back pain, Denies fractures, Denies myalgias, Denies neck pain Integumentary: Denies pruritus, Denies rash Neurological: Reports as per HPI Psychiatric: Reports anxiety, Reports depression Endocrine: Reports fatigue, Reports weight change Hematologic/Lymphatic: Reports easy bleeding, Reports easy bruising Past Medical History Past Medical History: Coronary Artery Disease (CAD), Chest Pain / Angina, Heart Failure, COPD, CVA/TIA, Diabetes Mellitus, Hyperlipidemia, Hypertension, Osteoarthritis (OA), Prostate Disorder, Renal Disease, Sleep Apnea/CPAP/BIPAP, Supraventricular Tachycardia (SVT), Syncope, Vascular Disorder Additional Past Medical History / Comment(s): BACK PAIN , CVA 2013 and TIA 2014- short-term memory problems, rt side still slightly weaker , hx occ double vision & vertigo, tinnitus., sleep apnea (no machine), states kidney disease improving, uses walker prn., states sore on his tailbone.,wears continues glucose monitor on abd., states positive cologard., urine incontinence -wears pads History of Any Multi-Drug Resistant Organisms: None Reported Past Surgical History: Appendectomy, Coronary Bypass/CABG, Heart Catheterization, Hernia Repair, Joint Replacement Additional Past Surgical History / Comment(s): RIGHT HIP REPLACEMENT 2002. Left hip arthroplasty anterior approach 09/09/2018. Quadruple Bypass . Past Anesthesia/Blood Transfusion Reactions: No Reported Reaction Past Psychological History: Anxiety, Depression Smoking Status: Current every day smoker Past Alcohol Use History: Rare Additional Past Alcohol Use History / Comment(s): SMOKES 2 CIGARELLOS/DAY, STARTED SMOKING 1976, QUIT AND RESTARTED., HX OF 2PPD. Past Drug Use History: Marijuana Additional Drug Use History / Comment(s): STATES RARE MARIUANA USE. - Past Family History Father Family Medical History: Myocardial Infarction ([place]) Mother Family Medical History: Coronary Artery Disease (CAD) Daughter(s) Family Medical History: No Reported History Son(s) Family Medical History: No Reported History Medications and Allergies Home Medications Medication Instructions Recorded Confirmed Type Aspirin [Adult Low Dose Aspirin EC] 81 mg PO HS 01/26/17 07/14/22 History Fenofibrate Nanocrystallized 145 mg PO HS 09/01/18 07/14/22 History [Fenofibrate] allopurinoL [Zyloprim] 100 mg PO HS 09/01/18 07/14/22 History Atorvastatin [Lipitor] 80 mg PO HS 05/16/21 07/14/22 History Ezetimibe [Zetia] 10 mg PO HS 05/16/21 07/14/22 History Dapagliflozin Propanediol [Farxiga] 5 mg PO HS 07/10/22 07/14/22 History Ergocalciferol (Vitamin D2) 1,250 mcg PO MOTH 07/10/22 07/14/22 History [Drisdol (50,000 Iu)] Prazosin HCl 2 mg PO HS 07/10/22 07/14/22 History Sertraline [Zoloft] 50 mg PO HS 07/10/22 07/14/22 History amLODIPine [Norvasc] 10 mg PO HS 07/14/22 07/14/22 History Allergies Allergy/AdvReac Type Severity Reaction Status Date / Time No Known Allergies Allergy Verified 07/14/22 17:04 Physical Examination - Vital Signs Vital Signs: Vital Signs Temp Pulse Pulse Resp BP BP Pulse Ox 07/15/22 08:00 98 F 76 22 155/74 97 07/15/22 04:00 98.1 F 88 17 145/73 95 07/15/22 00:00 64 18 163/87 97 07/14/22 20:39 65 18 209/95 97 07/14/22 17:10 65 18 182/77 96 07/14/22 16:26 60 20 174/91 98 07/14/22 16:05 160/77 07/14/22 16:03 184/80 07/14/22 16:00 157/67 07/14/22 12:55 97.7 F 61 18 163/83 100 Intake and Output 04/18/23 04/19/23 04/19/23 22:59 06:59 14:59 Intake Total 180 Output Total 225 Balance -45 Intake: Oral 180 Output: Urine 225 Other: Voiding Method Toilet Urinal # Voids 1 Weight 63.503 kg Patient is an elderly male, very pleasant in no acute distress. Patient is alert awake oriented to time place and person. Patient knows it is June 2022 and that he is in [facility] in [facility] and name of the current president. Speech and language functions are normal. Patient can name and repeat very well. No aphasia or dysarthria. Attention, concentration and fund of knowledge is adequate. On cranial nerve examination, pupils are equal, round and reacting to light, visual clark are full on confrontation, with no neglect on double simultaneous stimulation. Extraocular muscles are intact with no nystagmus. Face is symmetric, tongue protrudes to the midline. Palatal elevation and sensation normal, hearing is moderately decreased for finger rubbing bilaterally and shoulder shrug normal, facial sensation normal. On muscle strength testing, there is no pronator drift and the strength is normal in arms and legs distally and proximally, except right hip flexion, which is 4 and normal 5 on the left hip flexion. Deep tendon reflexes are (right/left) biceps 2+/2, brachioradialis 2+/2, knee 3/3, ankle 2/2 and plantars probable up on the right, down on the left. Sensory to touch is equal with no neglect on double simultaneous stimulation. Cerebellar function showed very mild ataxia for [id number] testing only on the right. No dysdiadochokinesia. No ataxia for [id number] testing on either side. Tone and bulk of muscles normal. Gait deferred.. On general examination, there is no carotid bruit or murmur, S1-S2 audible. Chest is clear on consultation. Abdomen is soft nontender. No organomegaly, bowel sounds present. Peripheral pulses are present. No edema. Results - Laboratory Findings CBC and BMP: 07/14/22 15:28 07/14/22 15:28 Abnormal Lab Findings: Abnormal Labs 07/14/22 07/14/22 07/14/22 15:28 15:28 16:42 Neutrophils # 7.9 H BUN 27 H Creatinine 2.33 H POC Glucose (mg/dL) 196 H Total Protein 5.7 L Albumin 3.4 L Assessment and Plan Assessment: * Dizziness, lightheadedness for a long time, recently worse. * History of left ICA stenosis/occlusion, did not undergo any surgery. * History of CVA, with very mild residual right-sided weakness. * Hypertension * Diabetes * Hyperlipidemia * Chronic tobacco use, currently smokes 4 cigarello per day. * Chronic incontinence. Plan: * Patient has presented with near syncopal spell, and worsening baseline dizziness. * Check CT head, rule out any structural abnormality. * Carotid Doppler, follow-up on stenosis/occlusion * Check B12, folate, TSH, hemoglobin A1c * Resume aspirin 81 mg daily that he was taking at home. Continue Lipitor 80 mg. * Neurology will follow. Thank you for the consult. Time with Patient: Greater than 30
[2022-07-15] MEDS ORDERED: ASPIRIN 81 MG PO SCH (12:00)
[2022-07-15] MEDS ORDERED: DEXTROSE 50% SYRINGE 50 ML IVP PRN ×2 (12:52)
--- NOTE | 2022-07-15 12:52 | CT ---
EXAMINATION TYPE: CT brain wo con CT DLP: 1142.4 mGycm, Automated exposure control for dose reduction was used. DATE OF EXAM: 07/15/2022 12:44 PM COMPARISON: Prior CT Brain from 10/20/2015 . CLINICAL INDICATION:Male, 66 years old with history of Near syncope, chronic dizziness,, Near syncope , chronic dizziness TECHNIQUE: Brain: Multiple axial CT images of the brain were obtained without IV contrast. Coronal and sagittal reformats reviewed. FINDINGS: Brain: Extra-axial spaces: No abnormal extra-axial fluid collections. Ventricular system: Within normal limits Cerebral parenchyma: Cerebral atrophy. No acute intraparenchymal hemorrhage or mass effect. Remote la cunar injuries to the left basal ganglia and right darling radiata with CSF attenuation. The tirado-whit e junction is well differentiated. Scattered hypoattenuating areas are seen within the white matter. Cerebellum: Unremarkable. Mass effect: No evidence of midline shift. Intracranial vasculature: Atherosclerotic calcifications of the intracranial vessels. Soft tissues: Normal. Calvarium/osseous structures: No depressed skull fracture. Incomplete fusion of posterior arch of C1 redemonstrated. Paranasal sinuses and mastoid air cells: Clear Visualized orbits: Orbital contents are intact. IMPRESSION: 1. No acute intracranial process. 2. Remote appearing lacunar injuries along with nonspecific white matter changes likely secondary to chronic microangiopathy.
[2022-07-15 13:04] VITALS: BP 174/77; PULSE 68; RESP 20; TEMP 97.6
--- NOTE | 2022-07-15 14:14 | US ---
EXAMINATION TYPE: US carotid duplex BILAT DATE OF EXAM: 07/15/2022 COMPARISON: CLINICAL INDICATION: Male, 66 years old with history of Near syncope, chronic dizziness,; HTN. Patie nt states he is dizzy. Portable ultrasound TECHNIQUE: Carotid duplex ultrasound examination. Indirect Doppler criteria was utilized. FINDINGS: EXAM MEASUREMENTS: RIGHT: Peak Systolic Velocity (PSV) cm/sec ----- Right CCA: 94.3 ----- Right ICA: 110.8 ----- Right ECA: 372.1 ICA/CCA ratio: 1.2 RIGHT: End Diastole cm/sec ----- Right CCA: 15.4 ----- Right ICA: 24.1 ----- Right ECA: 20.2 LEFT: Peak Systolic Velocity (PSV) cm/sec ----- Left CCA: 0.0 ----- Left ICA: 65.1 ----- Left ECA: 40.5 ICA/CCA ratio: 0.0 LEFT: End Diastole cm/sec ----- Left CCA: 0.0 ----- Left ICA: 20.0 ----- Left ECA: 6.3 VERTEBRALS (direction of flow): Right Vertebral: Antegrade Left Vertebral: Antegrade Rhythm: Normal CARTRIDGE BELT PUNCHER NOTES: Extensive plaque seen bilaterally. No vascular flow detected in left CCA and appe ars small in size, internal echoes visualized. Elevated right ECA velocity. No retrograde flow is identified. IMPRESSION: 1. No flow is identified within the left common carotid artery. However, flow is evident within the i nternal and external carotid artery. Retrograde flow was not clearly documented. Consider angiograph y for evaluation for minimal residual flow presence. 2. Right common carotid artery is patent without elevated velocity within the internal carotid artery . 3. There is marked increased velocity of the right external carotid artery which may reflect severe s tenosis Criteria for Assigning % of Stenosis / Diameter reduction (Estimation based on the indirect measurements of the internal carotid artery velocities (ICA PSV). 1. Normal (no stenosis)=ICA PSV < 125 cm/s: ratio < 2.0: ICA EDV<40 cm/s. 2. Less than 50% stenosis=ICA PSV < 125 cm/s: ratio < 2.0: ICA EDV<40 cm/s. 3. 50 to 69% stenosis=ICA PSV of 125 to 230 cm/s: ration 2.0 ? 4.0: ICA EDV 40-100 cm/s. 4. Greater than 70% stenosis to near occlusion= ICA PSV > 230 cm/s: ratio > 4.0: ICA EDV > 100 cm/s. 5. Near occlusion= ICA PSV velocities may be low or undetectable: variable ratio and ICA EDV. 6. Total occlusion=unable to detect flow.
--- NOTE | 2022-07-15 15:29 | P.HPIM ---
History of Present Illness H&P Date: 07/15/22 This is a pleasant 66-year-old male who recently presented to the emergency department with family after just being discharged feelings of dizziness and feeling like he has to have a syncopal episode. Patient was recently just discharged a day ago and had had multiple medication adjustments made by cardiology and reports went home okay although when attempting to get up continue to feel dizzy and lightheaded and feeling like he was going to pass out. Patient denies any syncope and denies any falling and does use a cane chronically in the outpatient setting. Patient does follow with Dr. Hidalgo in the outpatient setting with a past medical history of extensive coronary artery disease, chest pain/angina, heart failure, COPD, CVA/TIA, diabetes mellitus, hyperlipidemia, hypertension, osteoarthritis, chronic kidney disease, sleep apnea, history of vertigo with tinnitus, anxiety/depression, continued ongoing nicotine use. Patient denies significant drinking and reports to drinking soc ially and does smoke marijuana on occasion. Patient was admitted for neurology evaluation related to his dizziness and lightheadedness. EKG was done which showed sinus bradycardia. Labs reviewed and CBC within normal limits, sodium 138, potassium 5.0, BUN 27, creatinine 2.33, troponin 0.017 and virology testing was all negative. Review Of Systems: Constitutional: No fever, no chills, no night sweats. No weight change. No weakness, fatigue or lethargy. No daytime sleepiness. EENT: No headache. No blurred vision or double vision, no loss of vision. No loss of Hearing, no ringing in the ears, no dizziness. No nasal drainage or congestion. No epistaxis. No sore throat. Lungs: No shortness of breath, cough, no sputum production. No wheezing. Cardiovascular: No chest pain, no lower extremity edema. No palpitations. No paroxysmal nocturnal dyspnea. No orthopnea. Reports lightheadedness and dizziness that progressively gets worse throughout the day. Reporting pre- syncopal episodes but denies passing out or falling. Abdominal: No abdominal pain. No nausea, vomiting. No diarrhea. No constipation. No bloody or tarry stools.. No loss of appetite. Genitourinary: No dysuria, increased frequency, urgency. No urinary retention. Musculoskeletal: No myalgias. No muscle weakness, no gait dysfunction, no frequent falls. No back pain. No neck pain. Integumentary: No wounds, no lesions. No rash or pruritus. No unusual bruising. No change in hair or nails. Neurologic: No aphasia. No facial droop. No change in mentation. No head injury. No headache. No paralysis. No paresthesia. Psychiatric: No depression. No anxiety. No mood swings. Endocrine: No abnormal blood sugars. No weight change. No excessive sweating or thirst. No cold intolerance. PHYSICAL EXAMINATION: GENERAL: The patient is alert and oriented x4, thin built, elderly appearing HEENT: Pupils are round and equally reacting to light. EOMI. no scleral icterus. No conjunctival pallor. Normocephalic, atraumatic. No pharyngeal erythema. No thyromegaly. CARDIOVASCULAR: S1 and S2 muffled PULMONARY: diminished breath sounds bilaterally with no wheezing or rhonchi noted. ABDOMEN: soft. Nontender on exam. non-distended, normoactive bowel sounds. No palpable organomegaly. MUSCULOSKELETAL: No joint swelling or deformity. EXTREMITIES: No cyanosis, clubbing, or pedal edema. NEUROLOGICAL: Gross neurological examination did not reveal any focal deficits. Diffuse weakness SKIN: No rashes. Assessment: Presyncopal episode 4 while at home with continued lightheadedness and dizzine ss with no falling or loss of consciousness Lightheaded with dizziness, chronic Acute on chronic kidney disease, acute kidney injury, prerenal History of chronic kidney disease stage III b/4 Hypertension History of CVA/TIA in 2013 diabetes mellitus, type II, [id number] History of coronary artery disease with CABG History of depression Hyperlipidemia Continued ongoing nicotine dependence GI prophylaxis DVT prophylaxis No code Plan: Recommend to continue with current medications and management and will have neurology evaluate the patient as neurology was consulted in the ER for pres yncopal event Patient did have a number of medications recently adjusted due to uncontrolled blood pressure and was recently hospitalized and discharged for hyperkalemia with nephrology on consult Patient does have chronic kidney disease stage IIIB to 4 with a creatinine baseline around 1.7 although this was in 2019, creatinine is currently 2.33 and was to follow-up with nephrology outpatient Patient reports to having dizziness for a long time and known cardiac issues. Strongly encouraged the patient follow-up with cardiology outpatient for possible tilt table and further evaluation as well as vascular surgery outpatient for his stenosis and possible ENT outpatient for this continued dizziness as he reports that his position changes including lying down and rolling over with just his head. CT of the brain was done showing no acute process with remote appearing lacunar injuries along with nonspecific white matter changes likely secondary to chronic microangiopathy. Patient did have previous history of stroke Gait was slow although steady independently with a cane on exam Patient will be discharged later today The impression and plan of care has been dictated by Princess Hanna, nurse practitioner as directed. Dr. Gregg MD I have performed a history and examination and MDM of this patient, discussed the same with the dictator, and agree with the dictator's assessment and plan as written ,documented as a scribe. Based on total visit time, I have performed more than 50% of the visit. Any additional findings or plans will be noted. Past Medical History Past Medical History: Coronary Artery Disease (CAD), Chest Pain / Angina, Heart Failure, COPD, CVA/TIA, Diabetes Mellitus, Hyperlipidemia, Hypertension, Osteoarthritis (OA), Prostate Disorder, Renal Disease, Sleep Apnea/CPAP/BIPAP, Supraventricular Tachycardia (SVT), Syncope, Vascular Disorder Additional Past Medical History / Comment(s): BACK PAIN , CVA 2013 and TIA 2014- short-term memory problems, rt side still slightly weaker , hx occ double vision & vertigo, tinnitus., sleep apnea (no machine), states kidney disease improving, uses walker prn., states sore on his tailbone.,wears continues glucose monitor on abd., states positive cologard., urine incontinence -wears pads History of Any Multi-Drug Resistant Organisms: None Reported Past Surgical History: Appendectomy, Coronary Bypass/CABG, Heart Catheterization, Hernia Repair, Joint Replacement Additional Past Surgical History / Comment(s): RIGHT HIP REPLACEMENT 2002. Left hip arthroplasty anterior approach 09/09/2018. Quadruple Bypass -2016. Past Anesthesia/Blood Transfusion Reactions: No Reported Reaction Past Psychological History: Anxiety, Depression Smoking Status: Current every day smoker Past Alcohol Use History: Rare Additional Past Alcohol Use History / Comment(s): SMOKES 2 CIGARELLOS/DAY, STARTED SMOKING 1976, QUIT AND RESTARTED., HX OF 2PPD. Past Drug Use History: Marijuana Additional Drug Use History / Comment(s): STATES RARE MARIUANA USE. - Past Family History Father Family Medical History: Myocardial Infarction ([place]) Mother Family Medical History: Coronary Artery Disease (CAD) Daughter(s) Family Medical History: No Reported History Son(s) Family Medical History: No Reported History Medications and Allergies Home Medications Medication Instructions Recorded Confirmed Type Aspirin [Adult Low Dose Aspirin EC] 81 mg PO HS 01/26/17 07/14/22 History Fenofibrate Nanocrystallized 145 mg PO HS 09/01/18 07/14/22 History [Fenofibrate] allopurinoL [Zyloprim] 100 mg PO HS 09/01/18 07/14/22 History Atorvastatin [Lipitor] 80 mg PO HS 05/16/21 07/14/22 History Ezetimibe [Zetia] 10 mg PO HS 05/16/21 07/14/22 History Dapagliflozin Propanediol [Farxiga] 5 mg PO HS 07/10/22 07/14/22 History Ergocalciferol (Vitamin D2) 1,250 mcg PO MOTH 07/10/22 07/14/22 History [Drisdol (50,000 Iu)] Prazosin HCl 2 mg PO HS 07/10/22 07/14/22 History Sertraline [Zoloft] 50 mg PO HS 07/10/22 07/14/22 History amLODIPine [Norvasc] 10 mg PO DAILY #0 07/15/22 07/14/22 Rx Allergies Allergy/AdvReac Type Severity Reaction Status Date / Time No Known Allergies Allergy Verified 07/14/22 17:04 Physical Exam Vitals: Vital Signs Temp Pulse Pulse Resp BP BP Pulse Ox 07/15/22 08:00 98 F 76 22 155/74 97 07/15/22 04:00 98.1 F 88 17 145/73 95 07/15/22 00:00 64 18 163/87 97 07/14/22 20:39 65 18 209/95 97 07/14/22 17:10 65 18 182/77 96 07/14/22 16:26 60 20 174/91 98 07/14/22 16:05 160/77 07/14/22 16:03 184/80 07/14/22 16:00 157/67 07/14/22 12:55 97.7 F 61 18 163/83 100 Intake and Output 07/14/22 07/15/22 07/15/22 22:59 06:59 14:59 Intake Total 180 Output Total 225 Balance -45 Intake: Oral 180 Output: Urine 225 Other: Voiding Method Toilet Urinal # Voids 1 Weight 63.503 kg Results CBC & Chem 7: 07/14/22 15:28 07/14/22 15:28 Labs: Abnormal Lab Results - Last 24 Hours (Table) 07/14/22 07/14/22 07/14/22 Range/Units 15:28 15:28 16:42 Neutrophils # 7.9 H (1.3-7.7) k/uL BUN 27 H (9-20) mg/dL Creatinine 2.33 H (0.66-1.25) mg/dL POC Glucose (mg/dL) 196 H (70-110) mg/dL Total Protein 5.7 L (6.3-8.2) g/dL Albumin 3.4 L (3.5-5.0) g/dL Thrombosis Risk Factor Assmnt - DVT/VTE Prophylaxis DVT/VTE Prophylaxis: Pharmacologic Prophylaxis ordered - Choose All That Apply Any of the Below Risk Factors Present?: No Other Risk Factors: Yes Each Risk Factor Represents 2 Points: Age 61-74 years Other congenital or acquired thrombophilia - If yes, enter type in comment: No Thrombosis Risk Factor Assessment Total Risk Factor Score: 2 Thrombosis Risk Factor Assessment Level: Low Risk Assessment and Plan Time with Patient: Greater than 30
--- NOTE | 2022-07-15 15:35 | P.DS ---
Providers Date of admission: 07/14/22 19:41 Expected date of discharge: 07/15/22 Attending physician: Dulce Maria Archer Consults: 07/14/22 19:41 Consult Physician Urgent Consulting Provider: Aaliyah Navarro Consult Reason/Comments: Near syncope Do you want consulting provider notified?: Yes Primary care physician: Ashok Hidalgo Hospital Course: Final diagnosis Presyncopal episode 4 while at home with continued lightheadedness and dizziness with no falling or loss of consciousness Lightheaded with dizziness, chronic Acute on chronic kidney disease, acute kidney injury, prerenal History of chronic kidney disease stage III b/4 Hypertension History of CVA/TIA in 2013 diabetes mellitus, type II, [id number] History of coronary artery disease with CABG History of depression Hyperlipidemia Continued ongoing nicotine dependence GI prophylaxis DVT prophylaxis No code Discharge disposition Patient is being discharged in a stable condition with guarded prognosis to home . Patient will follow-up with Dr. Hidalgo in the outpatient setting upon discharge. Patient is to follow-up with cardiology outpatient for possible tilt table along with vascular surgery and nephrology as mentioned previous. Total time taken is greater than 35 minutes. Hospital course This is a 66-year-old male who was recently admitted with dizziness and lightheadedness that have been progressively getting worse over the last few days. Patient reports this is been ongoing for quite some time although could not tolerate the dizziness and came to the emergency department. Patient was recently admitted and discharged with hyperkalemia with acute on chronic kidney disease acute kidney injury with adjustments to blood pressure medications made. Patient reports that his dizziness that he chronically has got worse which prompted him to come back to the emergency department. Patient was admitted for neurological evaluation underwent CT brain showing no acute process with old lacunar injuries from previous CVA. Patient also had a carotid Doppler done which showed no flow identified within the left common carotid artery however flow is evident within the internal and external carotid artery with retrograde flow not clearly documented. Consider angiography for evaluation for minimal residual flow presence, right common carotid artery is patent without elevated velocity within the internal carotid artery and there is marked increased velocity of the right external carotid artery which may reflect severe stenosis. Patient does have known stenosis and did not elect for any surgery would highly recommend follow-up with cardiology along with vascular surgery outpatient. Recommended possible ENT referral outpatient as well and strongly encouraged the patient follow-up with primary care provider this week. Recommend repeat labs in the next few days to monitor kidney functions as adjustments to medications have been made and patient was to follow-up with nephrology outpatient as previously scheduled from last admission one day ago. Patient has been cleared by neurology and will be discharged home today. Currently no reports of chest pain, shortness of breath, or palpitations. Patient is afebrile. No reports of nausea or vomiting and patient is tolerating diet. Patient will be discharged home today with guarded prognosis. High risk for readmissions due to nonc ompliance and multiple comorbidities Physical exam: Gen: This is a 66-year-old male who is awake, alert and oriented 3, thin built, elderly appearing HEENT: normal Head is atraumatic, normocephalic. Pupils equal, round. Sclerae is anicteric. NECK: Supple. No JVD. No lymphadenopathy. No thyromegaly. LUNGS: Clear to auscultation. No wheezes or rhonchi. No intercostal retractions. HEART: Regular rate and rhythm. No murmur. ABDOMEN: Soft. Bowel sounds are present. No masses. No tenderness. EXTREMITIES: No pedal edema. No calf tenderness. NEUROLOGICAL: Patient is awake, alert and oriented x3. Cranial nerves 2 through 12 are grossly intact. Please refer to medication reconciliation sheet for a list of medications. The impression and plan of care has been dictated by Princess Hanna, Nurse Practitioner as directed. Dr. Gregg MD I have performed a history and examination and MDM of this patient, discussed the same with the dictator, and agree with the dictator's assessment and plan as written ,documented as a scribe. Based on total visit time, I have performed more than 50% of the visit. Patient Condition at Discharge: Fair Plan - Discharge Summary Discharge Rx Participant: No New Discharge Prescriptions: Continue Aspirin [Adult Low Dose Aspirin EC] 81 mg PO HS allopurinoL [Zyloprim] 100 mg PO HS Fenofibrate Nanocrystallized [Fenofibrate] 145 mg PO HS Ezetimibe [Zetia] 10 mg PO HS Atorvastatin [Lipitor] 80 mg PO HS Dapagliflozin Propanediol [Farxiga] 5 mg PO HS Ergocalciferol (Vitamin D2) [Drisdol (50,000 Iu)] 1,250 mcg PO MOTH amLODIPine [Norvasc] 10 mg PO DAILY #0 Prazosin HCl 2 mg PO HS Sertraline [Zoloft] 50 mg PO HS Discharge Medication List Aspirin [Adult Low Dose Aspirin EC] 81 mg PO HS 01/26/17 [History] Fenofibrate Nanocrystallized [Fenofibrate] 145 mg PO HS 09/01/18 [History] allopurinoL [Zyloprim] 100 mg PO HS 09/01/18 [History] Atorvastatin [Lipitor] 80 mg PO HS 05/16/21 [History] Ezetimibe [Zetia] 10 mg PO HS 05/16/21 [History] Dapagliflozin Propanediol [Farxiga] 5 mg PO HS 07/10/22 [History] Ergocalciferol (Vitamin D2) [Drisdol (50,000 Iu)] 1,250 mcg PO MOTH 07/10/22 [History] Prazosin HCl 2 mg PO HS 07/10/22 [History] Sertraline [Zoloft] 50 mg PO HS 07/10/22 [History] amLODIPine [Norvasc] 10 mg PO DAILY #0 07/15/22 [Rx] Follow up Appointment(s)/Referral(s): Ashok Hidalgo MD [Primary Care Provider] - 07/20/22 11:00 am ([facility]) Aubree Chan DO [STAFF PHYSICIAN] - 08/04/22 3:00 pm (Dr. Cr) Benjamin Isidro MD [STAFF PHYSICIAN] - 1 Week (Please call for an appointment.) Shiv Lester DO [STAFF PHYSICIAN] - 1 Week (Please call for an appointment.) Jacoby Bolanos MD [STAFF PHYSICIAN] - 07/20/22 4:00 pm Patient Instructions/Handouts: Near Syncope (DC) Activity/Diet/Wound Care/Special Instructions: Activity Limited until follow-up Recommend follow-up with primary care provider on discharge as he may need referral to ENT, nephrology, vascular surgery Recommend follow-up with vascular surgery and nephrology When getting up sitting up at the side of the bed or chair for 1-2 minutes and continue using walker and/or cane Strongly encourage cardiology follow-up to consider possible tilt table test and medication adjustments Discharge Disposition: HOME SELF-CARE
[2022-07-15] MEDS ORDERED: INSULIN ASPART (NovoLOG) 100 UNIT/ML VIAL SQ SCH (17:30)
== END 2022-07-15 16:10 | disposition home or self-care (01) ==
LOC: EC 12:45 → 3SCARD 19:41 → INTOOBSV 19:41 → 3SCARD 23:00
PROVIDERS: ADMIT Hospitalist; ATTEND Hospitalist
DX: R55 Syncope and collapse (principal); N17.9 Acute kidney failure, unspecified; I13.0 Hypertensive heart and chronic kidney disease with heart failure and stage 1 through stage 4 chronic kidney disease, or unspecified chronic kidney disease; I69.351 Hemiplegia and hemiparesis following cerebral infarction affecting right dominant side; I25.10 Atherosclerotic heart disease of native coronary artery without angina pectoris; J44.9 Chronic obstructive pulmonary disease, unspecified; E78.5 Hyperlipidemia, unspecified; G47.30 Sleep apnea, unspecified; F41.9 Anxiety disorder, unspecified; F32.A Depression, unspecified; I50.9 Heart failure, unspecified; N18.32 Chronic kidney disease, stage 3b; E11.22 Type 2 diabetes mellitus with diabetic chronic kidney disease; F17.200 Nicotine dependence, unspecified, uncomplicated; Z20.822 Contact with and (suspected) exposure to COVID-19; Z96.643 Presence of artificial hip joint, bilateral; Z79.82 Long term (current) use of aspirin; Z79.899 Other long term (current) drug therapy; Z79.84 Long term (current) use of oral hypoglycemic drugs; Z82.49 Family history of ischemic heart disease and other diseases of the circulatory system
CPT/HCPCS: 96372; 96360; 99285; 36415; 93005; 80053; 84443; 82607; 82746; 84484; 85025; 85610; 85730; 83036; 87636; 93880; 70450; G0378 ×2

== ENCOUNTER → 2022-08-12 | Outpatient (CLI) | payer MEDICARE | END | disposition home or self-care (01) | LOC: RADCTMAIN 12:19 | PROVIDERS: ATTEND Surgery | DX: I65.29 Occlusion and stenosis of unspecified carotid artery (principal) | CPT/HCPCS: 82565; 84520 ==

== ENCOUNTER → 2022-08-25 | Outpatient (CLI) | payer MEDICARE | END | disposition home or self-care (01) | LOC: RADCTMAIN 09:56 | PROVIDERS: ATTEND Surgery | DX: Z53.9 Procedure and treatment not carried out, unspecified reason (principal) | CPT/HCPCS: 82565; 84520 ==

== ENCOUNTER 2022-08-29 13:03 | Inpatient (IN) | payer MEDICARE ==
--- NOTE | 2022-08-29 13:30 | ED ---
Dizziness HPI - General Chief Complaint: Dizziness Stated Complaint: Dizziness, hypertension Time Seen by Provider: 08/29/22 13:25 Source: patient Mode of arrival: ambulatory Limitations: no limitations - History of Present Illness Initial Comments: 66-year-old male presents to the emergency department with report of high blood pressure and vertiginous symptoms which is positional in nature. Patient has a history of vertigo. States that he woke up this morning and couldn't ambulate due to the dizziness. He did take a meclizine at home and checked his blood pressure. When he noted his blood pressure was high he has taken 2 of his clonidine but continued to have persistent high blood pressure and dizziness. 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 He reports since his last hospitalization that he has not followed up with the ENT or vascular Dr. He adm its to nausea without vomiting. No chest pain. No headache. No other alleviating, precipitating or modifying factors - Related Data Home Medications Medication Instructions Recorded Confirmed Aspirin [Adult Low Dose Aspirin EC] 81 mg PO HS 01/26/17 08/29/22 Fenofibrate Nanocrystallized 145 mg PO HS 09/01/18 08/29/22 [Fenofibrate] allopurinoL [Zyloprim] 100 mg PO HS 09/01/18 08/29/22 Atorvastatin [Lipitor] 80 mg PO HS 05/16/21 08/29/22 Ezetimibe [Zetia] 10 mg PO HS 05/16/21 08/29/22 Dapagliflozin Propanediol [Farxiga] 5 mg PO HS 07/10/22 08/29/22 Ergocalciferol (Vitamin D2) 1,250 mcg PO MOTH 07/10/22 08/29/22 [Drisdol (50,000 Iu)] Prazosin HCl 2 mg PO HS 07/10/22 08/29/22 Sertraline [Zoloft] 50 mg PO HS 07/10/22 08/29/22 ARIPiprazole [Abilify] 5 mg PO DAILY 08/29/22 08/29/22 Donepezil [Aricept] 5 mg PO HS 08/29/22 08/29/22 Meclizine [Antivert] 12.5 mg PO TID PRN 08/29/22 08/29/22 carvediloL phosphate [Carvedilol 10 mg PO DAILY 08/29/22 08/29/22 ER] hydrALAZINE HCL [Apresoline] 25 mg PO TID PRN 08/29/22 08/29/22 Previous Rx's Medication Instructions Recorded Clopidogrel [Plavix] 75 mg PO DAILY #30 tablet 07/15/22 amLODIPine [Norvasc] 10 mg PO DAILY #0 07/15/22 Allergies Allergy/AdvReac Type Severity Reaction Status Date / Time No Known Allergies Allergy Verified 08/29/22 17:03 Review of Systems ROS Statement: Those systems with pertinent positive or pertinent negative responses have been documented in the HPI. ROS Other: All systems not noted in ROS Statement are negative. Past Medical History Past Medical History: Coronary Artery Disease (CAD), Chest Pain / Angina, Heart Failure, COPD, CVA/TIA, Diabetes Mellitus, Hyperlipidemia, Hypertension, Osteoarthritis (OA), Prostate Disorder, Renal Disease, Sleep Apnea/CPAP/BIPAP, Supraventricular Tachycardia (SVT), Syncope, Vascular Disorder Additional Past Medical History / Comment(s): BACK PAIN , CVA 2013 and TIA 2014- short-term memory problems, rt side still slightly weaker , hx occ double vision & vertigo, tinnitus., sleep apnea (no machine), states kidney disease improving, uses walker prn., states sore on his tailbone.,wears continues glucose monitor on abd., states positive cologard., urine incontinence -wears pads History of Any Multi-Drug Resistant Organisms: None Reported Past Surgical History: Appendectomy, Coronary Bypass/CABG, Heart Catheterization, Hernia Repair, Joint Replacement Additional Past Surgical History / Comment(s): RIGHT HIP REPLACEMENT 2002. Left hip arthroplasty anterior approach 09/09/2018. Quadruple Bypass . Past Anesthesia/Blood Transfusion Reactions: No Reported Reaction Past Psychological History: Anxiety, Depression Smoking Status: Current every day smoker Past Alcohol Use History: Rare Past Drug Use History: Marijuana - Past Family History Father Family Medical History: Myocardial Infarction ([place]) Mother Family Medical History: Coronary Artery Disease (CAD) Daughter(s) Family Medical History: No Reported History Son(s) Family Medical History: No Reported History General Exam Limitations: no limitations General appearance: alert, in no apparent distress Head exam: Present: atraumatic, normocephalic, normal inspection Eye exam: Present: normal appearance, PERRL, EOMI. Absent: scleral icterus, conjunctival injection, periorbital swelling ENT exam: Present: normal exam, mucous membranes moist Neck exam: Present: normal inspection. Absent: tenderness, meningismus, lymphadenopathy Respiratory exam: Present: normal lung sounds bilaterally. Absent: respiratory distress, wheezes, rales, rhonchi, stridor Cardiovascular Exam: Present: regular rate, normal rhythm, normal heart sounds. Absent: systolic murmur, diastolic murmur, rubs, gallop, clicks GI/Abdominal exam: Present: soft, normal bowel sounds. Absent: distended, tenderness, guarding, rebound, rigid Extremities exam: Present: normal inspection, full ROM, normal capillary refill. Absent: tenderness, pedal edema, joint swelling, calf tenderness Back exam: Present: normal inspection Neurological exam: Present: alert, oriented X3, CN II-XII intact Psychiatric exam: Present: normal affect, normal mood Skin exam: Present: warm, dry, intact, normal color. Absent: rash Course Vital Signs 08/29/22 08/29/22 08/29/22 13:04 15:48 16:00 Temperature 98.2 F Pulse Rate 77 65 Respiratory 20 16 Rate Blood Pressure 202/71 178/84 184/87 O2 Sat by Pulse 99 98 Oximetry 08/29/22 08/29/22 17:00 18:25 Temperature Pulse Rate 60 66 Respiratory 16 16 Rate Blood Pressure 175/79 174/81 O2 Sat by Pulse 99 99 Oximetry EKG Findings - EKG Comments: EKG Findings:: EKG interpreted by me demonstrates sinus rhythm with a rate of 68. SC interval 158. Contrast 95. QTC of 391. ST depression 2, 3, aVF V4 through V6. No ST elevation. Morphology appears similar to old Medical Decision Making - Medical Decision Making Was pt. sent in by a medical professional or institution (, PA, JOY OPERATOR, urgent care, hospital, or [facility]...) When possible be specific @ -No Did you speak to anyone other than the patient for history (EMS, parent, family, police, friend...)? What history was obtained from this source @ -No Did you review nursing and triage notes (agree or disagree)? Why? @ -I reviewed and agree with nursing and triage notes Were old charts reviewed (outside hosp., previous admission, EMS record, old EKG, old radiological studies, urgent care reports/EKG's, [facility] records)? Report findings @ -Old charts were reviewed. Patient recently hospitalized for similar complaint. Patient has a known carotid disease Differential Diagnosis (chest pain, altered mental status, abdominal pain women, abdominal pain men, vaginal bleeding, weakness, fever, dyspnea, syncope, headache, dizziness, GI bleed, back pain, seizure, CVA, palpatations, mental health, musculoskeletal)? @ -Differential Dizziness: Benign paroxysmal positional Vertigo, Menieres disease, otitis media, acoustic neuroma, vertebrobasilar insufficiency, cerebellar stroke, encephalitis, hypovolemic, arrhythmia, coronary artery syndrome, anemia, this is not meant to be an all-inclusive list EKG interpreted by me (3pts min.). @ -Yes EKG was interpreted by me, please see EKG heading above X-rays interpreted by me (1pt min.). @ -None done CT interpreted by me (1pt min.). @ -None done U/S interpreted by me (1pt. min.). @ -None done What testing was considered but not performed or refused? (CT, X-rays, U/S, labs)? Why? @ -CT was considered however patient has had recent imaging as he has been hospitalized previously for similar complaint What meds were considered but not given or refused? Why? @ -Meclizine however the patient already took this at home Did you discuss the management of the patient with other professionals (professionals i.e. , PA, JOY OPERATOR, lab, RT, psych nurse, family welfare social work professor, clearance cutter, teacher, consumer safety officer, case filler)? Give summary @ -I spoke with Dr. Archer in regards to the patient's for admission Was smoking cessation discussed for >3mins.? @ -No Was critical care preformed (if so, how long)? @ -No Were there social determinants of health that impacted care today? How? (Homelessness, low income, unemployed, alcoholism, drug addiction, transportation, low edu. Level, literacy, decrease access to med. care, [facility], rehab)? @ -No Was there de-escalation of care discussed even if they declined (Discuss DNR or withdrawal of care, Hospice)? DNR status @ -No What co-morbidities impacted this encounter? (DM, HTN, Smoking, COPD, CAD, Cancer, CVA, ARF, Chemo, Hep., AIDS, mental health diagnosis, sleep apnea, morbid obesity)? @ -Vertigo, carotid disease, chronic kidney disease Was patient admitted / discharged? Hospital course, mention meds given and route, prescriptions, significant lab abnormalities, going to OR and other pertinent info. @ -Upon arrival patient is placed into room 18. A thorough history and physical exam was performed. IV is established. He has already taken his hyd ralazine at home as well as a meclizine. He is given 5 of Valium for his vertiginous symptoms and 20 mg of hydralazine for his high blood pressure. He does has improvement in his blood pressure however still reports that he is extremely dizzy and cannot ambulate. Because of this I did recommend admission. Spoke with Dr. Archer who agreed to admit the patient Undiagnosed new problem with uncertain prognosis? @ -No Drug Therapy requiring intensive monitoring for toxicity (Heparin, Nitro, Insulin, Cardizem)? @ -No Were any procedures done? @ -No Diagnosis/symptom? @ -Exacerbation of chronic vertigo, accelerated hypertension Acute, or Chronic, or Acute on Chronic? @ -Acute on chronic Uncomplicated (without systemic symptoms) or Complicated (systemic symptoms)? @ -Complicated Side effects of treatment? @ -Sedation Exacerbation, Progression, or Severe Exacerbation? @ -yes Poses a threat to life or bodily function? How? (Chest pain, USA, CT, pneumonia, PE, COPD, DKA, ARF, appy, cholecystitis, CVA, Diverticulitis, Homicidal, Suicidal, threat to staff... and all critical care pts) @ -No - Lab Data Result diagrams: 08/29/22 13:45 08/29/22 13:45 Lab Results 08/29/22 08/29/22 08/29/22 Range/Units 13:45 13:45 13:45 WBC 6.2 (3.8-10.6) k/uL RBC 3.92 L (4.30-5.90) m/uL Hgb 11.3 L (13.0-17.5) gm/dL Hct 35.8 L (39.0-53.0) % MCV 91.2 (80.0-100.0) fL MCH 28.8 (25.0-35.0) pg MCHC 31.5 (31.0-37.0) g/dL RDW 15.8 H (11.5-15.5) % Plt Count 202 (150-450) k/uL MPV 8.4 Neutrophils % 72 % Lymphocytes % 18 % Monocytes % 7 % Eosinophils % 1 % Basophils % 1 % Neutrophils # 4.5 (1.3-7.7) k/uL Lymphocytes # 1.1 (1.0-4.8) k/uL Monocytes # 0.4 (0-1.0) k/uL Eosinophils # 0.1 (0-0.7) k/uL Basophils # 0.0 (0-0.2) k/uL Hypochromasia Slight PT 11.0 (9.0-12.0) sec INR 1.0 (<1.2) Sodium 138 (137-145) mmol/L Potassium 5.3 H (3.5-5.1) mmol/L Chloride 114 H (98-107) mmol/L Carbon Dioxide 15 L (22-30) mmol/L Anion Gap 9 mmol/L BUN 41 H (9-20) mg/dL Creatinine 2.67 H (0.66-1.25) mg/dL Est GFR (CKD-EPI)AfAm 27 (>60 ml/min/1.73 sqM) Est GFR (CKD-EPI)NonAf 24 (>60 ml/min/1.73 sqM) Glucose 178 H (74-99) mg/dL Calcium 8.2 L (8.4-10.2) mg/dL Magnesium 1.9 (1.6-2.3) mg/dL Total Bilirubin 0.3 (0.2-1.3) mg/dL AST 18 (17-59) U/L ALT 17 (4-49) U/L Alkaline Phosphatase 55 (38-126) U/L Troponin I (0.000-0.034) ng/mL Total Protein 5.7 L (6.3-8.2) g/dL Albumin 3.3 L (3.5-5.0) g/dL TSH 0.785 (0.465-4.680) mIU/L 08/29/22 Range/Units 13:45 WBC (3.8-10.6) k/uL RBC (4.30-5.90) m/uL Hgb (13.0-17.5) gm/dL Hct (39.0-53.0) % MCV (80.0-100.0) fL MCH (25.0-35.0) pg MCHC (31.0-37.0) g/dL RDW (11.5-15.5) % Plt Count (150-450) k/uL MPV Neutrophils % % Lymphocytes % % Monocytes % % Eosinophils % % Basophils % % Neutrophils # (1.3-7.7) k/uL Lymphocytes # (1.0-4.8) k/uL Monocytes # (0-1.0) k/uL Eosinophils # (0-0.7) k/uL Basophils # (0-0.2) k/uL Hypochromasia PT (9.0-12.0) sec INR (<1.2) Sodium (137-145) mmol/L Potassium (3.5-5.1) mmol/L Chloride (98-107) mmol/L Carbon Dioxide (22-30) mmol/L Anion Gap mmol/L BUN (9-20) mg/dL Creatinine (0.66-1.25) mg/dL Est GFR (CKD-EPI)AfAm (>60 ml/min/1.73 sqM) Est GFR (CKD-EPI)NonAf (>60 ml/min/1.73 sqM) Glucose (74-99) mg/dL Calcium (8.4-10.2) mg/dL Magnesium (1.6-2.3) mg/dL Total Bilirubin (0.2-1.3) mg/dL AST (17-59) U/L ALT (4-49) U/L Alkaline Phosphatase (38-126) U/L Troponin I <0.012 (0.000-0.034) ng/mL Total Protein (6.3-8.2) g/dL Albumin (3.5-5.0) g/dL TSH (0.465-4.680) mIU/L Disposition Clinical Impression: Vertigo, Accelerated hypertension, Hyperkalemia Disposition: ADMITTED IP TO THIS [facility] Condition: Stable Is patient prescribed a controlled substance at d/c from ED?: No Time of Disposition: 16:39 Decision to Admit Reason: Admit from EC Decision Date: 08/29/22 Decision Time: 16:39
[2022-08-29 13:55] LABS: Basophils % (A) 1 %; Eosinophils # (A) 0.1 k/uL (0-0.7); Eosinophils % (A) 1 %; HCT 35.8 % (39.0-53.0); HGB 11.3 gm/dL (13.0-17.5); Hypochromasia Slight; Lymphocytes # (A) 1.1 k/uL (1.0-4.8); Lymphocytes % (A) 18 %; MCH 28.8 pg (25.0-35.0); MCHC 31.5 g/dL (31.0-37.0); MCV 91.2 fL (80.0-100.0); Mean Platelet Volume 8.4; Monocytes # (A) 0.4 k/uL (0-1.0); Monocytes % (A) 7 %; Neutrophils # (A) 4.5 k/uL (1.3-7.7); Neutrophils % (A) 72 %; Platelet Count 202 k/uL (150-450); RBC 3.92 m/uL (4.30-5.90); RDW 15.8 % (11.5-15.5); WBC 6.2 k/uL (3.8-10.6)
[2022-08-29 14:07] LABS: ALT 17 U/L (4-49); AST 18 U/L (17-59); African American GFR (CKD) 27 (>60 ml/min/1.73 sqM); Albumin 3.3 g/dL (3.5-5.0); Alkaline Phosphatase 55 U/L (38-126); Anion Gap 9 mmol/L; Blood Urea Nitrogen 41 mg/dL (9-20); Calcium 8.2 mg/dL (8.4-10.2); Carbon Dioxide 15 mmol/L (22-30); Chloride 114 mmol/L (98-107); Glucose 178 mg/dL (74-99); Magnesium 1.9 mg/dL (1.6-2.3); Non-African American GFR(CKD) 24 (>60 ml/min/1.73 sqM); Potassium 5.3 mmol/L (3.5-5.1); Sodium 138 mmol/L (137-145); Total Bilirubin 0.3 mg/dL (0.2-1.3); Total Protein 5.7 g/dL (6.3-8.2)
[2022-08-29] MEDS ORDERED: hydrALAZINE HCL 20 MG/ML 1 ML VIAL IVP STA (14:50)
[2022-08-29] MEDS ORDERED: ONDANSETRON 4 MG/2 ML VIAL IVP STA (14:50)
[2022-08-29] MEDS ORDERED: NALOXONE 0.4 MG/ML 1 ML VIAL IV PRN (16:41)
[2022-08-29] MEDS ORDERED: MECLIZINE 25 MG TAB PO PRN (16:53)
[2022-08-29] MEDS ORDERED: hydrALAZINE HCL 20 MG/ML 1 ML VIAL IVP PRN (19:15)
[2022-08-29] MEDS ORDERED: DEXTROSE 50% SYRINGE 50 ML IVP PRN ×2 (19:19)
[2022-08-29 20:29] LABS: Glucose,Whole Blood 196 mg/dL (70-110)
[2022-08-29] MEDS: carvediloL 12.5 MG TAB PO SCH (20:44)
[2022-08-29] MEDS: DAPAGLIFLOZIN PROPANEDIOL 5 MG TABLET PO SCH (20:44)
[2022-08-29] MEDS: hydrALAZINE HCL 50 MG TAB PO SCH (20:44)
[2022-08-29] MEDS: DONEPEZIL 5 MG TAB PO SCH (20:45)
[2022-08-29] MEDS: EZETIMIBE 10 MG TAB PO SCH (20:45)
[2022-08-29] MEDS: amLODIPine 10 MG TAB PO SCH (20:45)
[2022-08-29] MEDS: INSULIN ASPART (NovoLOG) 100 UNIT/ML VIAL SQ SCH (20:45)
[2022-08-29] MEDS: allopurinoL 100 MG TAB PO SCH (20:45)
[2022-08-29] MEDS: PRAZOSIN 1 MG CAP PO SCH (20:45)
[2022-08-29] MEDS: FENOFIBRATE 160 MG TAB PO SCH (20:45)
[2022-08-29] MEDS: ATORVASTATIN 80 MG TAB PO SCH (20:45)
[2022-08-29] MEDS: SERTRALINE 50 MG TAB PO SCH (20:45)
[2022-08-29] MEDS: ASPIRIN 81 MG PO SCH (20:45)
[2022-08-30 06:24] LABS: Glucose,Whole Blood 126 mg/dL (70-110)
[2022-08-30] MEDS: INSULIN ASPART (NovoLOG) 100 UNIT/ML VIAL SQ SCH ×4 (06:26→20:55)
[2022-08-30] MEDS: carvediloL 12.5 MG TAB PO SCH ×2 (06:29→18:25)
[2022-08-30 06:34] LABS: Basophils % (A) 0 %; Eosinophils # (A) 0.1 k/uL (0-0.7); Eosinophils % (A) 2 %; HCT 36.6 % (39.0-53.0); HGB 11.6 gm/dL (13.0-17.5); Hypochromasia Slight; Lymphocytes # (A) 1.3 k/uL (1.0-4.8); Lymphocytes % (A) 20 %; MCH 29.2 pg (25.0-35.0); MCHC 31.7 g/dL (31.0-37.0); MCV 92.2 fL (80.0-100.0); Mean Platelet Volume 7.7; Monocytes # (A) 0.5 k/uL (0-1.0); Monocytes % (A) 7 %; Neutrophils # (A) 4.5 k/uL (1.3-7.7); Neutrophils % (A) 69 %; Platelet Count 204 k/uL (150-450); Poikilocytosis Slight; RBC 3.97 m/uL (4.30-5.90); RDW 15.7 % (11.5-15.5); WBC 6.5 k/uL (3.8-10.6)
[2022-08-30 07:00] LABS: African American GFR (CKD) 28 (>60 ml/min/1.73 sqM); Anion Gap 5 mmol/L; Blood Urea Nitrogen 41 mg/dL (9-20); Calcium 7.9 mg/dL (8.4-10.2); Carbon Dioxide 15 mmol/L (22-30); Chloride 118 mmol/L (98-107); Glucose 118 mg/dL (74-99); Non-African American GFR(CKD) 25 (>60 ml/min/1.73 sqM); Potassium 5.3 mmol/L (3.5-5.1); Sodium 138 mmol/L (137-145)
[2022-08-30] MEDS: CLOPIDOGREL 75 MG TAB PO SCH (09:17)
[2022-08-30] MEDS: hydrALAZINE HCL 50 MG TAB PO SCH ×3 (09:17→20:56)
[2022-08-30] MEDS: ARIPiprazole 5 MG TAB PO SCH (09:17)
[2022-08-30] MEDS: amLODIPine 10 MG TAB PO SCH (09:17)
[2022-08-30] MEDS: SODIUM CHLORIDE 0.45% 1,000 ML IV SCH ×2 (10:48→23:40)
--- NOTE | 2022-08-30 10:49 | P.HPIM ---
History of Present Illness Patient was [id number] male with chronic kidney disease stage IV came in for a compensative vertigo. Patient was hospitalized in month of June for similar symptoms was diagnosed with peripheral vertigo was discharged with fol low-up with ENT. Patient continued to have symptoms. Patient has some generalized weakness without any ataxia or any other cerebellar signs. Patient does take meclizine at home. Patient had extensive workup during last hospital was CT of the head did not show any abnormality Noted Doppler was done which showed lack of flow in the left common carotid although a fentanyl and carotid did have flow, with a normal flow in the right common carotid. It was also read as increased velocity in the right external carotid artery which may reflect severe stenosis. Considering his chronic kidney disease with an adopted a CT angiogram of the head and neck. Patient's vertigo is persistent preci pitated by movement of the head denied any fullness in the ears but did complain of ringing in the ears. No other focal weakness was evident clearly although patient does have generalized weakness. REVIEW OF SYSTEMS: CONSTITUTIONAL: No fever, no malaise, no fatigue. HEENT: No recent visual problems or hearing problems. Denied any sore throat. CARDIOVASCULAR: No chest pain, orthopnea, PND, no palpitations, no syncope. PULMONARY: No shortness of breath, no cough, no hemoptysis. GASTROINTESTINAL: No diarrhea, no nausea, no vomiting, no abdominal pain. NEUROLOGICAL: No headaches, no weakness, no numbness. HEMATOLOGICAL: Denies any bleeding or petechiae. GENITOURINARY: Denies any burning micturition, frequency, or urgency. MUSCULOSKELETAL/RHEUMATOLOGICAL: Denies any joint pain, swelling, or any muscle pain. ENDOCRINE: Denies any polyuria or polydipsia. The rest of the 14-point review of systems is negative. PHYSICAL EXAMINATION: GENERAL: The patient is alert and oriented x3, not in any acute distress. Well developed, well nourished. HEENT: Pupils are round and equally reacting to light. EOMI. No scleral icterus. No conjunctival pallor. Normocephalic, atraumatic. No pharyngeal erythema. No thyromegaly. CARDIOVASCULAR: S1 and S2 present. No murmurs, rubs, or gallops. PULMONARY: Chest is clear to auscultation, no wheezing or crackles. ABDOMEN: Soft, nontender, nondistended, normoactive bowel sounds. No palpable organomegaly. MUSCULOSKELETAL: No joint swelling or deformity. EXTREMITIES: No cyanosis, clubbing, or pedal edema. NEUROLOGICAL: Gross neurological examination did not reveal any focal deficits. SKIN: No rashes. Assessment and plan -Intractable vertigo: Was believed to have peripheral vertigo most probably benign positional vertigo or labyrinthitis, because of the non-improvement of symptoms aren't consulted neurology. Continue with meclizine. Patient probably will need [facility] as outpatient -Depression: Patient is on Zoloft which will be continued and follow-up with psychiatry as an outpatient patient is not suicidal - generalized weakness due to deconditioning: Physical and outpatient therapy evaluation -Chronic kidney disease stage IV there may be a mild acute renal failure competent patient was started on half-normal saline because of hyperchloremia -Coronary artery disease -COPD next and haven't diabetes mellitus -Hypertension Sleep apnea -History of SVT in the past next -Professor disease DVT prophylaxis: Subcutaneous heparin Past Medical History Past Medical History: Coronary Artery Disease (CAD), Chest Pain / Angina, Heart Failure, COPD, CVA/TIA, Diabetes Mellitus, Hyperlipidemia, Hypertension, Osteoarthritis (OA), Prostate Disorder, Renal Disease, Sleep Apnea/CPAP/BIPAP, Supraventricular Tachycardia (SVT), Syncope, Vascular Disorder Additional Past Medical History / Comment(s): BACK PAIN , CVA 2013 and TIA 2014- short-term memory problems, rt side still slightly weaker , hx occ double vision & vertigo, tinnitus., sleep apnea (no machine), states kidney disease improving, uses walker prn., states sore on his tailbone.,wears continues glucose monitor on abd., states positive cologard., urine incontinence -wears pads History of Any Multi-Drug Resistant Organisms: None Reported Past Surgical History: Appendectomy, Coronary Bypass/CABG, Heart Catheterization, Hernia Repair, Joint Replacement Additional Past Surgical History / Comment(s): RIGHT HIP REPLACEMENT 2002. Left hip arthroplasty anterior approach 09/09/2018. Quadruple Bypass . Past Anesthesia/Blood Transfusion Reactions: No Reported Reaction Past Psychological History: Anxiety, Depression Smoking Status: Current every day smoker Past Alcohol Use History: Rare Past Drug Use History: Marijuana - Past Family History Father Family Medical History: Myocardial Infarction ([place]) Mother Family Medical History: Coronary Artery Disease (CAD) Daughter(s) Family Medical History: No Reported History Son(s) Family Medical History: No Reported History Medications and Allergies Home Medications Medication Instructions Recorded Confirmed Type Aspirin [Adult Low Dose Aspirin EC] 81 mg PO HS 01/26/17 08/29/22 History Fenofibrate Nanocrystallized 145 mg PO HS 09/01/18 08/29/22 History [Fenofibrate] allopurinoL [Zyloprim] 100 mg PO HS 09/01/18 08/29/22 History Atorvastatin [Lipitor] 80 mg PO HS 05/16/21 08/29/22 History Ezetimibe [Zetia] 10 mg PO HS 05/16/21 08/29/22 History Dapagliflozin Propanediol [Farxiga] 5 mg PO HS 07/10/22 08/29/22 History Ergocalciferol (Vitamin D2) 1,250 mcg PO MOTH 07/10/22 08/29/22 History [Drisdol (50,000 Iu)] Prazosin HCl 2 mg PO HS 07/10/22 08/29/22 History Sertraline [Zoloft] 50 mg PO HS 07/10/22 08/29/22 History Clopidogrel [Plavix] 75 mg PO DAILY #30 tablet 07/15/22 08/29/22 Rx amLODIPine [Norvasc] 10 mg PO DAILY #0 07/15/22 08/29/22 Rx ARIPiprazole [Abilify] 5 mg PO DAILY 08/29/22 08/29/22 History Donepezil [Aricept] 5 mg PO HS 08/29/22 08/29/22 History Meclizine [Antivert] 12.5 mg PO TID PRN 08/29/22 08/29/22 History carvediloL phosphate [Carvedilol 10 mg PO DAILY 08/29/22 08/29/22 History ER] hydrALAZINE HCL [Apresoline] 25 mg PO TID PRN 08/29/22 08/29/22 History Allergies Allergy/AdvReac Type Severity Reaction Status Date / Time No Known Allergies Allergy Verified 08/29/22 17:03 Physical Exam Vitals: Vital Signs Temp Pulse Pulse Pulse Pulse Pulse Resp 08/30/22 06:25 97.9 F 72 18 08/30/22 03:01 97.8 F 71 16 08/29/22 20:40 08/29/22 18:52 97.9 F 68 81 63 18 08/29/22 18:25 66 16 08/29/22 17:00 60 16 08/29/22 16:00 08/29/22 15:48 65 16 08/29/22 13:04 98.2 F 77 20 BP BP BP BP BP Pulse Ox 08/30/22 06:25 144/66 95 08/30/22 03:01 144/73 96 08/29/22 20:40 180/73 08/29/22 18:52 177/68 176/86 206/79 98 08/29/22 18:25 174/81 99 08/29/22 17:00 175/79 99 08/29/22 16:00 184/87 08/29/22 15:48 178/84 98 08/29/22 13:04 202/71 99 Intake and Output 08/29/22 08/30/22 08/30/22 22:59 06:59 14:59 Intake Total 236 Output Total 900 275 Balance - -39 Intake: Oral 236 Output: Urine 900 275 Other: Voiding Method Urinal # Voids 0 1 Weight 63.503 kg Results CBC & Chem 7: 08/30/22 05:34 08/30/22 05:34 Labs: Abnormal Lab Results - Last 24 Hours (Table) 08/29/22 08/29/22 08/29/22 Range/Units 13:45 13:45 20:27 RBC 3.92 L (4.30-5.90) m/uL Hgb 11.3 L (13.0-17.5) gm/dL Hct 35.8 L (39.0-53.0) % RDW 15.8 H (11.5-15.5) % Potassium 5.3 H (3.5-5.1) mmol/L Chloride 114 H (98-107) mmol/L Carbon Dioxide 15 L (22-30) mmol/L BUN 41 H (9-20) mg/dL Creatinine 2.67 H (0.66-1.25) mg/dL Glucose 178 H (74-99) mg/dL POC Glucose (mg/dL) 196 H (70-110) mg/dL Calcium 8.2 L (8.4-10.2) mg/dL Total Protein 5.7 L (6.3-8.2) g/dL Albumin 3.3 L (3.5-5.0) g/dL 08/30/22 08/30/22 08/30/22 Range/Units 05:34 05:34 06:23 RBC 3.97 L (4.30-5.90) m/uL Hgb 11.6 L (13.0-17.5) gm/dL Hct 36.6 L (39.0-53.0) % RDW 15.7 H (11.5-15.5) % Potassium 5.3 H (3.5-5.1) mmol/L Chloride 118 H (98-107) mmol/L Carbon Dioxide 15 L (22-30) mmol/L BUN 41 H (9-20) mg/dL Creatinine 2.58 H (0.66-1.25) mg/dL Glucose 118 H (74-99) mg/dL POC Glucose (mg/dL) 126 H (70-110) mg/dL Calcium 7.9 L (8.4-10.2) mg/dL Total Protein (6.3-8.2) g/dL Albumin (3.5-5.0) g/dL Thrombosis Risk Factor Assmnt - Choose All That Apply Each Risk Factor Represents 2 Points: Age 61-74 years Each Risk Factor Represents 3 Points: History of DVT/PE Thrombosis Risk Factor Assessment Total Risk Factor Score: 5 Thrombosis Risk Factor Assessment Level: High Risk
[2022-08-30 12:04] LABS: Glucose,Whole Blood 122 mg/dL (70-110)
[2022-08-30] MEDS: HEPARIN SODIUM,PORCINE/PF 5,000 UNIT/0.5 ML SYRINGE SQ SCH ×2 (15:54→23:41)
--- NOTE | 2022-08-30 16:21 | P.CNNES ---
History of Present Illness Consult date: 08/30/22 History of Present Illness: The patient is a 66-year-old male who is seen in neurologic consultation on August 30, 2042, via teleneurology. The patient is being seen because of intractable vertigo. In review with the chart, the patient reportedly was in the hospital in June, with similar symptoms. He was discharged with meclizine. He reportedly continues to have episodes of vertigo. In discussion with the patient, he describes a feeling of dizziness and off balance. He denies a spinning sensation. He does report that his ears are ringing. He notices that when he is attempting to walk he tends to veer to the left. He also reports poor hand coordination. Patient states that his symptoms get worse with head movement. He describes feeling "dizzy" when he turns his head while laying in the bed. He also gets "dizzy" with sitting and standing. The patient does report an episode of syncope in the past. Patient denies headache. He does report tingling in his arms and legs, left greater than right. He has noticed worsening of his speech. He states that after his stroke of 2013 he had some slurring of his speech. He feels it is worse at this time. The patient also reports blurring of his vision. He reports a generalized decrease in strength. He denies difficulty swallowing. CT scan of the brain was performed in the emergency department. There is no evidence of acute hemorrhage or infarct. CT angiogram has not been performed secondary to poor renal status. Past Medical History Past Medical History: Coronary Artery Disease (CAD), Chest Pain / Angina, Heart Failure, COPD, CVA/TIA, Diabetes Mellitus, Hyperlipidemia, Hypertension, Osteoarthritis (OA), Prostate Disorder, Renal Disease, Sleep Apnea/CPAP/BIPAP, Supraventricular Tachycardia (SVT), Syncope, Vascular Disorder Additional Past Medical History / Comment(s): BACK PAIN , CVA 2013 and TIA 2014- short-term memory problems, rt side still slightly weaker , hx occ double vision & vertigo, tinnitus., sleep apnea (no machine), states kidney disease improving, uses walker prn., states sore on his tailbone.,wears continues glucose monitor on abd., states positive cologard., urine incontinence -wears pads History of Any Multi-Drug Resistant Organisms: None Reported Past Surgical History: Appendectomy, Coronary Bypass/CABG, Heart Catheterization, Hernia Repair, Joint Replacement Additional Past Surgical History / Comment(s): RIGHT HIP REPLACEMENT 2002. Left hip arthroplasty anterior approach 09/09/2018. Quadruple Bypass . Past Anesthesia/Blood Transfusion Reactions: No Reported Reaction Past Psychological History: Anxiety, Depression Smoking Status: Current every day smoker Past Alcohol Use History: Rare Past Drug Use History: Marijuana - Past Family History Father Family Medical History: Myocardial Infarction (SD) Mother Family Medical History: Coronary Artery Disease (CAD) Daughter(s) Family Medical History: No Reported History Son(s) Family Medical History: No Reported History Medications and Allergies Home Medications Medication Instructions Recorded Confirmed Type Aspirin [Adult Low Dose Aspirin EC] 81 mg PO HS 01/26/17 08/29/22 History Fenofibrate Nanocrystallized 145 mg PO HS 09/01/18 08/29/22 History [Fenofibrate] allopurinoL [Zyloprim] 100 mg PO HS 09/01/18 08/29/22 History Atorvastatin [Lipitor] 80 mg PO HS 05/16/21 08/29/22 History Ezetimibe [Zetia] 10 mg PO HS 05/16/21 08/29/22 History Dapagliflozin Propanediol [Farxiga] 5 mg PO HS 07/10/22 08/29/22 History Ergocalciferol (Vitamin D2) 1,250 mcg PO MOTH 07/10/22 08/29/22 History [Drisdol (50,000 Iu)] Prazosin HCl 2 mg PO HS 07/10/22 08/29/22 History Sertraline [Zoloft] 50 mg PO HS 07/10/22 08/29/22 History Clopidogrel [Plavix] 75 mg PO DAILY #30 tablet 07/15/22 08/29/22 Rx amLODIPine [Norvasc] 10 mg PO DAILY #0 07/15/22 08/29/22 Rx ARIPiprazole [Abilify] 5 mg PO DAILY 08/29/22 08/29/22 History Donepezil [Aricept] 5 mg PO HS 08/29/22 08/29/22 History Meclizine [Antivert] 12.5 mg PO TID PRN 08/29/22 08/29/22 History carvediloL phosphate [Carvedilol 10 mg PO DAILY 08/29/22 08/29/22 History ER] hydrALAZINE HCL [Apresoline] 25 mg PO TID PRN 08/29/22 08/29/22 History Allergies Allergy/AdvReac Type Severity Reaction Status Date / Time No Known Allergies Allergy Verified 08/29/22 17:03 Physical Examination - Vital Signs Vital Signs: Vital Signs Temp Pulse Pulse Pulse Pulse Pulse Resp 08/30/22 06:25 97.9 F 72 18 08/30/22 03:01 97.8 F 71 16 08/29/22 20:40 08/29/22 18:52 97.9 F 68 81 63 18 08/29/22 18:25 66 16 08/29/22 17:00 60 16 08/29/22 16:00 08/29/22 15:48 65 16 08/29/22 13:04 98.2 F 77 20 BP BP BP BP BP Pulse Ox 08/30/22 06:25 144/66 95 08/30/22 03:01 144/73 96 08/29/22 20:40 180/73 08/29/22 18:52 177/68 176/86 206/79 98 08/29/22 18:25 174/81 99 08/29/22 17:00 175/79 99 08/29/22 16:00 184/87 08/29/22 15:48 178/84 98 08/29/22 13:04 202/71 99 Intake and Output 08/29/22 08/30/22 08/30/22 22:59 06:59 14:59 Intake Total 236 Output Total 900 275 Balance -900 -39 Intake: Oral 236 Output: Urine 900 275 Other: Voiding Method Urinal # Voids 0 1 Weight 63.503 kg General: The patient is reclining in the bed. He is well-nourished, well- developed and in no acute distress. HEENT: Head is atraumatic, normocephalic. Fundus not visualized. There is no scleral icterus. Mucous membranes are moist. Neck: Supple without carotid bruits Heart: Regular rate and rhythm Lungs: Diminished breath sounds throughout Extremities: Without edema Neurological examination Mental status: The patient is awake, alert and oriented 3. His speech is clear. There is no dysarthria or aphasia. The patient has repetitive movements of his mouth. Cranial nerves: Pupils are equal at 2 mm and reactive. Visual clark are full to confrontation. Extraocular movements are intact. There is no nystagmus. Facial sensation is intact. There is no facial asymmetry. Hearing is grossly intact. Uvula and palate are midline. Shoulder shrug is symmetric. Tongue protrudes midline. Motor: Paving Supervisor strength (right/left) 3/4 triceps 3/3. Ankle dorsiflexors 4/4. Ankle plantar flexors 3/4. Sensation: Grossly intact to light touch. There is no extinction with double simultaneous stimulation Coordination: Finger to nose, rapid alternating movements and [id number] testing are intact. There is a mild bilateral upper extremity intention tremor. There is no asterixis. Deep tendon reflexes 2+/4+ in the bilateral upper extremities. Right patellar reflex 3+/4+. left patellar reflex 2+/4+. Gait: Not assessed Results - Laboratory Findings CBC and BMP: 08/30/22 05:34 08/30/22 05:34 Abnormal Lab Findings: Abnormal Labs 08/29/22 08/29/22 08/29/22 13:45 13:45 20:27 RBC 3.92 L Hgb 11.3 L Hct 35.8 L RDW 15.8 H Potassium 5.3 H Chloride 114 H Carbon Dioxide 15 L BUN 41 H Creatinine 2.67 H Glucose 178 H POC Glucose (mg/dL) 196 H Hemoglobin A1c Calcium 8.2 L Total Protein 5.7 L Albumin 3.3 L 08/30/22 08/30/22 08/30/22 05:34 05:34 05:34 RBC 3.97 L Hgb 11.6 L Hct 36.6 L RDW 15.7 H Potassium 5.3 H Chloride 118 H Carbon Dioxide 15 L BUN 41 H Creatinine 2.58 H Glucose 118 H POC Glucose (mg/dL) Hemoglobin A1c 6.3 H Calcium 7.9 L Total Protein Albumin 08/30/22 08/30/22 06:23 12:02 RBC Hgb Hct RDW Potassium Chloride Carbon Dioxide BUN Creatinine Glucose POC Glucose (mg/dL) 126 H 122 H Hemoglobin A1c Calcium Total Protein Albumin Assessment and Plan Assessment: 1. Continued, recurrent dizziness and ataxia in a patient with multiple comorbidities which put him at high risk for stroke. His current neurological examination is consistent with his reported previous stroke. Acoustic neuroma is also in the differential and must be considered 2. History of stroke in 2013 3. History of hypertension 4. History of hyperlipidemia 5. History of coronary artery disease 6. End-stage renal disease 7. History of diabetes mellitus Plan: 1. MRI of the brain has been ordered to further evaluate for acute ischemia and acoustic neuroma 2. Physical therapy for balance training 3. Check orthostatic vitals 4. Continue current medications at this time Thank you for allowing us to participate in the care of this patient Dr. Carrillo Valdez will assume neurologic coverage of this patient as of August 31 023 Time with Patient: Greater than 30 (Greater than 50 minutes were spent in caring for this patient today including, obtaining a history, examining the patient, reviewing imaging, chart documentation, labs, placing orders and creating this note)
[2022-08-30 17:19] LABS: Glucose,Whole Blood 104 mg/dL (70-110)
[2022-08-30 20:52] LABS: Glucose,Whole Blood 201 mg/dL (70-110)
[2022-08-30] MEDS: PRAZOSIN 1 MG CAP PO SCH (20:56)
[2022-08-30] MEDS: DAPAGLIFLOZIN PROPANEDIOL 5 MG TABLET PO SCH (20:56)
[2022-08-30] MEDS: FENOFIBRATE 160 MG TAB PO SCH (20:56)
[2022-08-30] MEDS: EZETIMIBE 10 MG TAB PO SCH (20:56)
[2022-08-30] MEDS: DONEPEZIL 5 MG TAB PO SCH (20:56)
[2022-08-30] MEDS: ATORVASTATIN 80 MG TAB PO SCH (20:56)
[2022-08-30] MEDS: SERTRALINE 50 MG TAB PO SCH (20:56)
[2022-08-30] MEDS: allopurinoL 100 MG TAB PO SCH (20:56)
[2022-08-30] MEDS: ASPIRIN 81 MG PO SCH (20:56)
[2022-08-30 22:37] LABS: Glucose,Whole Blood 90 mg/dL (70-110)
[2022-08-30 23:08] LABS: Glucose,Whole Blood 80 mg/dL (70-110)
[2022-08-30 23:26] LABS: Glucose,Whole Blood 85 mg/dL (70-110)
[2022-08-30 23:53] LABS: Glucose,Whole Blood 152 mg/dL (70-110)
[2022-08-31 02:49] LABS: Glucose,Whole Blood 135 mg/dL (70-110)
[2022-08-31 06:24] LABS: African American GFR (CKD) 31 (>60 ml/min/1.73 sqM); Anion Gap 6 mmol/L; Blood Urea Nitrogen 34 mg/dL (9-20); Carbon Dioxide 16 mmol/L (22-30); Chloride 112 mmol/L (98-107); Glucose 116 mg/dL (74-99); Non-African American GFR(CKD) 27 (>60 ml/min/1.73 sqM); Potassium 5.8 mmol/L (3.5-5.1); Sodium 134 mmol/L (137-145)
[2022-08-31 07:42] LABS: Glucose,Whole Blood 108 mg/dL (70-110)
[2022-08-31] MEDS: hydrALAZINE HCL 50 MG TAB PO SCH ×3 (08:06→20:25)
[2022-08-31] MEDS: carvediloL 12.5 MG TAB PO SCH ×2 (08:06→17:57)
[2022-08-31] MEDS: ARIPiprazole 5 MG TAB PO SCH (08:07)
[2022-08-31] MEDS: amLODIPine 10 MG TAB PO SCH (08:07)
[2022-08-31] MEDS: CLOPIDOGREL 75 MG TAB PO SCH (08:07)
[2022-08-31] MEDS: ERGOCALCIFEROL 1,250 MCG (50,000 IU) CAPSULE PO SCH (08:08)
[2022-08-31] MEDS: HEPARIN SODIUM,PORCINE/PF 5,000 UNIT/0.5 ML SYRINGE SQ SCH ×2 (08:08→17:57)
[2022-08-31] MEDS: INSULIN ASPART (NovoLOG) 100 UNIT/ML VIAL SQ SCH ×4 (10:43→21:28)
[2022-08-31 12:15] LABS: Glucose,Whole Blood 199 mg/dL (70-110)
[2022-08-31] MEDS ORDERED: SODIUM ZIRCONIUM CYCLOSILICATE 10 GM PACKET PO ONE (12:31)
--- NOTE | 2022-08-31 15:46 | P.PN ---
Subjective Progress Note Date: 08/31/22 I am seeing the patient for the first time during this hospital visit. He continues to have dizziness. Denies of vomiting or any focal weakness. Objective - Vital Signs Vital signs: Vital Signs Temp 97.5 F L 08/31/22 07:00 Pulse 56 L 08/31/22 08:00 Resp 20 08/31/22 08:00 BP 170/85 08/31/22 07:00 Pulse Ox 99 08/31/22 07:00 FiO2 Intake & Output 08/30/22 08/31/22 08/31/22 18:59 06:59 18:59 Intake Total 472 Output Total 950 900 Balance -478 -900 Intake: Oral 472 Output: Urine 950 900 Other: Voiding Method Urinal Urinal - Exam Neuro: Is alert, oriented X3. Following simple commands. No aphasia VFF to confrontation. EOM intact and no nystagmus. No facial weakness. No dysarthria. Motor: Strength is 5/5 throughout. Cerebellar: Normal finger to nose bilaterally. - Labs CBC & Chem 7: 08/30/22 05:34 08/31/22 05:28 Labs: Abnormal Lab Results - Last 24 Hours (Table) 08/30/22 08/30/22 08/31/22 Range/Units 20:51 23:52 02:48 Sodium (137-145) mmol/L Potassium (3.5-5.1) mmol/L Chloride (98-107) mmol/L Carbon Dioxide (22-30) mmol/L BUN (9-20) mg/dL Creatinine (0.66-1.25) mg/dL Glucose (74-99) mg/dL POC Glucose (mg/dL) 201 H 152 H 135 H (70-110) mg/dL Calcium (8.4-10.2) mg/dL 08/31/22 08/31/22 Range/Units 05:28 12:13 Sodium 134 L (137-145) mmol/L Potassium 5.8 H (3.5-5.1) mmol/L Chloride 112 H (98-107) mmol/L Carbon Dioxide 16 L (22-30) mmol/L BUN 34 H (9-20) mg/dL Creatinine 2.37 H (0.66-1.25) mg/dL Glucose 116 H (74-99) mg/dL POC Glucose (mg/dL) 199 H (70-110) mg/dL Calcium 8.0 L (8.4-10.2) mg/dL Assessment and Plan Assessment: 1. Continued, recurrent dizziness and ataxia in a patient with multiple comorbidities which put him at high risk for stroke. His current neurological examination is consistent with his reported previous stroke. Acoustic neuroma i s also in the differential and must be considered--today I did not feel he had ataxia but continue to complain of dizziness. 2. History of stroke in 2013 3. History of hypertension 4. History of hyperlipidemia 5. History of coronary artery disease 6. End-stage renal disease 7. History of diabetes mellitus Plan: 1. Pending MRI of the brain has been ordered to further evaluate for acute ischemia and acoustic neuroma 2. Physical therapy for balance training 3. Will defer the rest of medical management to primary team. Plan is discussed with patient and his nurse. Time with Patient: Less than 30
--- NOTE | 2022-08-31 17:32 | MR ---
EXAMINATION TYPE: MR angio head/neck wo con DATE OF EXAM: 08/31/2022 5:16 PM CLINICAL INDICATION:Male, 66 years old with history of intractable dizziness; Intractable dizziness. COMPARISON: 10/09/2013, ultrasound 07/15/2022 Technical: MRA brain: 2D and 3-D [id number] Axial with MIP and 3-D reconstruction. Performed on a separate w orkstation. MRA neck: Multiplanar, multi-sequence imaging as well as [id number] and phase was performed extra cranial vasculature of the neck. 3-D reformatted images and maximum intensity projection reformatted images were submitted for evaluation, these are performed on a separate workstation. IV Contrast: none Findings: Vertebral arteries: Hypoplastic left vertebral artery. The right vertebral artery is dominant. Basilar artery: The basilar artery is intact. The basilar artery bifurcation is normal. Internal Carotid arteries: The cervical, petrous, cavernous and supraclinoid segments are normal. FORTINO: Patent with no evidence of aneurysm. Hypoplastic left A1 segment. ACOM: Present without evidence of aneurysm. MCA: Patent with no evidence of aneurysm. 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 PCOM: Hypoplastic bilaterally. Some motion limits evaluation of the structures. RIGHT CAROTID SYSTEM: The common carotid artery is patent. The carotid bifurcations demonstrates no e vidence for hemodynamically significant stenosis. The internal carotid artery is patent. LEFT CAROTID SYSTEM: The left common carotid artery is diminutive in size and are absent. The interna l carotid artery and left appears to reconstitute after the bifurcation and extends into the skull wh ich appears patent. The origins of the great vessels and vertebral arteries appear unremarkable. The right vertebral art rohit is dominant. The left vertebral artery is not definitively visualized extending from its origin w ith suspected small vessel reconstituting near the level of C3-C4. IMPRESSION: 1. 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 Findings similar to ultrasound carotid on 07/16/19 23, there is some motion which limits evaluation of the inferior common carotid system which could pr obably be better evaluated with CTA neck. 2. Diminutive and/or absent left vertebral artery system which appears to reconstitute at the level of C3-C4. This can be further evaluated with CT neck given the motion limits resolution.
[2022-08-31 17:35] LABS: Glucose,Whole Blood 131 mg/dL (70-110)
--- NOTE | 2022-08-31 18:05 | MR ---
EXAMINATION TYPE: MR brain wo con DATE OF EXAM: 08/31/2022 5:16 PM COMPARISON: MR Angio neck and head same day. CLINICAL INDICATION:Male, 66 years old with history of intractable dizziness; Intractable dizziness. TECHNIQUE: Multi planar, multi sequence imaging was performed through the brain including: T1, T2, In version recovery, Diffusion weighted imaging, and gradient echo imaging. No gadolinium was given. FINDINGS: Scattered foci of restricted diffusion involving bilateral cerebral hemispheres the right insular cor vandana white matter and left thalamus. There is Generalized cerebral volume loss is present. Proportiona l dilation of the ventricular system is noted. Remote injuries in the right temporal and right darling radiata with hemosiderin deposition with blooming artifact. Additional blooming artifact focus withi n the sophia on the left just off midline suspicious for microhemorrhage. Scattered foci of high T2 sig nal intensity are seen within the periventricular white matter. Midline structures show no abnormalit y. Hypoplastic left vertebral artery as described on same day angiogram. The bone marrow signal is within normal limits. Paranasal sinuses and mastoid air cells: Trace high T2 signal seen within the mastoid air cells. Visualized orbits: Orbital contents are intact. IMPRESSION: 1. Acute/subacute CVA with scattered foci of restricted diffusion seen in the bilateral cerebellar he mispheres, left thalamus and right insular cortex white matter. More remote appearing injury of the r ight basal ganglia and right darling radiata. Correlate for embolic phenomenon. 2. Nonspecific white matter changes, likely secondary to small vessel ischemic disease. 3. Trace bilateral mastoid air cell effusions.
[2022-08-31] MEDS: SODIUM CHLORIDE 0.45% 1,000 ML IV SCH (18:15)
[2022-08-31] MEDS: DAPAGLIFLOZIN PROPANEDIOL 5 MG TABLET PO SCH (20:24)
[2022-08-31] MEDS: ATORVASTATIN 80 MG TAB PO SCH (20:24)
[2022-08-31] MEDS: ASPIRIN 81 MG PO SCH (20:24)
[2022-08-31] MEDS: PRAZOSIN 1 MG CAP PO SCH (20:24)
[2022-08-31] MEDS: DONEPEZIL 5 MG TAB PO SCH (20:24)
[2022-08-31] MEDS: EZETIMIBE 10 MG TAB PO SCH (20:24)
[2022-08-31] MEDS: FENOFIBRATE 160 MG TAB PO SCH (20:24)
[2022-08-31] MEDS: SERTRALINE 50 MG TAB PO SCH (20:24)
[2022-08-31] MEDS: allopurinoL 100 MG TAB PO SCH (20:24)
[2022-08-31 21:11] LABS: Glucose,Whole Blood 187 mg/dL (70-110)
--- NOTE | 2022-08-31 23:55 | P.PN ---
Subjective Progress Note Date: 08/31/22 Patient was [id number] male with chronic kidney disease stage IV came in for a compensative vertigo. Patient was hospitalized in month of June for similar symptoms was diagnosed with peripheral vertigo was discharged with follow-up with ENT. Patient continued to have symptoms. Patient has some generalized weakness without any ataxia or any other cerebellar signs. Patient does take meclizine at home. Patient had extensive workup during last hospital was CT of the head did not show any abnormality Noted Doppler was done which showed lack of flow in the left common carotid although a fentanyl and carotid did have flow, with a normal flow in the right common carotid. It was also read as increased velocity in the right external carotid artery which may reflect severe stenosis. Considering his chronic kidney disease with an adopted a CT angiogram of the head and neck. Patient's vertigo is persistent precipitated by movement of the head denied any fullness in the ears but did complain of ringing in the ears. No other focal weakness was evident clearly although patient does have generalized weakness. 08/31/2022 Patient is seen and evaluated in follow-up is morning continues to report extreme dizziness and feeling awful. Patient has continuous nausea although reports tolerating some diet. Patient being followed by neurology awaiting to undergo MRA and MRI of the brain which is currently pending. Per nursing staff MRI scheduled for sometime after 4:30 this afternoon. Patient will need most likely this tubular rehabilitation in the outpatient setting. Patient is afebrile denies chest pain or shortness of breath. Patient's potassium came back at 5.8 and will give a dose of lokelma and follow-up with repeat labs in the a.m. Await PT/OT therapy evaluation as well. Review of systems: Constitutional: No reports of fatigue, fever, or chills Cardiovascular: No reports of chest pain or palpitations Respiratory: No reports of shortness of breath or cough GI: reports of occasional nausea, no vomiting, or diarrhea : No reports of dysuria or retention Neurovascular: reports of generalized weakness with continued dizziness All medications have been reviewed PHYSICAL EXAMINATION: GENERAL: The patient is alert and oriented x3, not in any acute distres Thin built, elderly appearing HEENT: Pupils are round and equally reacting to light. EOMI. No scleral icterus. No conjunctival pallor. Normocephalic, atraumatic. No pharyngeal erythema. No thyromegaly. CARDIOVASCULAR: S1 and S2 present. No murmurs, rubs, or gallops. PULMONARY: Chest is clear to auscultation, no wheezing or crackles. ABDOMEN: Soft, nontender, nondistended, normoactive bowel sounds. No palpable organomegaly. MUSCULOSKELETAL: No joint swelling or deformity. EXTREMITIES: No cyanosis, clubbing, or pedal edema. NEUROLOGICAL: Gross neurological examination did not reveal any focal deficits. SKIN: No rashes. Assessment: -Intractable vertigo: Was believed to have peripheral vertigo most probably benign positional vertigo or labyrinthitis -Depression history -generalized weakness due to deconditioning -Chronic kidney disease stage IV, possible mild acute renal failure, most recent baseline was 2.1 -Coronary artery disease -COPD, not in exacerbation -diabetes mellitus type 2 history -Hypertension -Sleep apnea -History of SVT in the past -History of CVA/TIA -DVT prophylaxis: Subcutaneous heparin -GI prophylaxis -Full code Plan: Recommend continue with current medications and regimen with neurology following. Patient is awaiting MRA and MRI of the brain Most likely will need vestibular rehab outpatient Recommend monitor Accu-Cheks before meals and at bedtime we'll use current regimen Awaiting PT/OT therapy evaluation Patient's potassium was 5.8 today and will give lokelma and follow-up with repeat labs Will discuss further with neurology once MRI results have been obtained Possible discharge in the next 24-48 hours The impression and plan of care has been dictated by Princess Hanna, Nurse Practitioner as directed. Dr. Gregg MD I have performed a history and examination and MDM of this patient, discussed the same with the dictator, and agree with the dictator's assessment and plan as written ,documented as a scribe. Based on total visit time, I have performed more than 50% of the visit. Objective - Vital Signs Vital signs: Vital Signs Temp 97.5 F L 08/31/22 07:00 Pulse 56 L 08/31/22 08:00 Resp 20 08/31/22 08:00 BP 170/85 08/31/22 07:00 Pulse Ox 99 08/31/22 07:00 FiO2 Intake & Output 08/30/22 08/31/22 08/31/22 18:59 06:59 18:59 Intake Total 472 Output Total 950 900 Balance -478 -900 Intake: Oral 472 Output: Urine 950 900 Other: Voiding Method Urinal Urinal - Labs CBC & Chem 7: 08/30/22 05:34 08/31/22 05:28 Labs: Abnormal Lab Results - Last 24 Hours (Table) 08/30/22 08/30/22 08/30/22 Range/Units 05:34 12:02 20:51 Sodium (137-145) mmol/L Potassium (3.5-5.1) mmol/L Chloride (98-107) mmol/L Carbon Dioxide (22-30) mmol/L BUN (9-20) mg/dL Creatinine (0.66-1.25) mg/dL Glucose (74-99) mg/dL POC Glucose (mg/dL) 122 H 201 H (70-110) mg/dL Hemoglobin A1c 6.3 H % Calcium (8.4-10.2) mg/dL 08/30/22 08/31/22 08/31/22 Range/Units 23:52 02:48 05:28 Sodium 134 L (137-145) mmol/L Potassium 5.8 H (3.5-5.1) mmol/L Chloride 112 H (98-107) mmol/L Carbon Dioxide 16 L (22-30) mmol/L BUN 34 H (9-20) mg/dL Creatinine 2.37 H (0.66-1.25) mg/dL Glucose 116 H (74-99) mg/dL POC Glucose (mg/dL) 152 H 135 H (70-110) mg/dL Hemoglobin A1c % Calcium 8.0 L (8.4-10.2) mg/dL
[2022-09-01] MEDS: HEPARIN SODIUM,PORCINE/PF 5,000 UNIT/0.5 ML SYRINGE SQ SCH ×4 (00:15→20:21)
[2022-09-01] MEDS: SODIUM CHLORIDE 0.45% 1,000 ML IV SCH (02:51)
[2022-09-01 05:09] LABS: Glucose,Whole Blood 106 mg/dL (70-110)
[2022-09-01] MEDS: INSULIN ASPART (NovoLOG) 100 UNIT/ML VIAL SQ SCH ×4 (05:19→21:17)
[2022-09-01] MEDS: carvediloL 12.5 MG TAB PO SCH ×2 (05:29→18:11)
[2022-09-01 07:42] LABS: African American GFR (CKD) 32 (>60 ml/min/1.73 sqM); Anion Gap 8 mmol/L; Blood Urea Nitrogen 30 mg/dL (9-20); Carbon Dioxide 15 mmol/L (22-30); Chloride 114 mmol/L (98-107); Glucose 107 mg/dL (74-99); Non-African American GFR(CKD) 27 (>60 ml/min/1.73 sqM); Potassium 4.9 mmol/L (3.5-5.1); Sodium 137 mmol/L (137-145)
[2022-09-01] MEDS: hydrALAZINE HCL 50 MG TAB PO SCH ×3 (09:15→20:21)
[2022-09-01] MEDS: CLOPIDOGREL 75 MG TAB PO SCH (09:15)
[2022-09-01] MEDS ORDERED: SODIUM BICARBONATE TAB 650 MG TAB PO SCH (09:15)
[2022-09-01] MEDS: amLODIPine 10 MG TAB PO SCH (09:16)
[2022-09-01] MEDS: ARIPiprazole 5 MG TAB PO SCH (09:16)
--- NOTE | 2022-09-01 11:48 | P.GSCN ---
History of Present Illness Consult date: 09/01/22 Reason for Consult: Left carotid occlusion Requesting physician: Princess Hanna History of present illness: The subcu pleasant 58-year-old male who presented to the emergency department on 08/29/2022 with elevated blood pressure and symptoms of vertigo. Patient states he's been suffering from vertigo since June of this year. He states is mostly positional with turning his head or going from lying to sitting or sitting to standing position. He often will also have gait imbalance and states he feels that he is veering to the left. 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 He states that he was supposed to follow-up with ENT however they did not take his insurance. He is still looking for research and development chemist to see for his vertigo. States his last stroke was related to a blood clot. During his last admission in June he did have a carotid duplex on 07/15/2022 that reported a flow identified in the left common carotid artery. However, flow is evident within the internal and external carotid artery. Retrograde flow neck clearly documented. Right common carotid artery is patent with elevated velocity within the internal carotid artery. Marked increased velocity of right external carotid artery may reflect severe st enosis. Vascular surgery was consulted for left common carotid occlusion. Patient is currently on aspirin 81 mg daily, Plavix 75 mg daily, and Lipitor 80 mg daily. During this hospitalization he was seen and evaluated by neurology who ordered an MRA of the head and neck as well as MRI of the brain. MRA of neck reported suspected occlusion of left common carotid artery with reconstitution of the left carotid system at the internal carotid artery in the mid neck. Findings similar to ultrasound carotid and 07/15/2022. Diminutive and/or absent left vertebral artery system which appears to reconstitute at the level of C3-C4. This can be further evaluated with CT neck Motion limits resolution. Brain MRI reported acute/subacute CVA with scattered foci of restricted diffusion seen in bilateral cerebellar hemispheres, left thalamus and right insular cortex white matter. More remote appearing injury of the right basal ganglia and right darling Roddey Bryan. Correlate for embolic phenomenon. Nonspecific white matter changes likely secondary to small vessel ischemic disease. Trace bilateral mastoid air cell effusions. Patient currently denies any shortness of breath, chest pain, irregular heartbeat, abdominal pain, nausea or vomiting, fevers or chills. He states he still has positional vertigo. Has residual right-sided weakness and uses a cane to walk. States that he still feels that when he is walking he is bearing to the left. Denies any visual changes at this time. No loss of vision, difficulty swallowing, or speaking. Review of Systems A 14 point review systems was completed all pertinent positives and negatives as stated in the HPI. Past Medical History Past Medical History: Coronary Artery Disease (CAD), Chest Pain / Angina, Heart Failure, COPD, CVA/TIA, Diabetes Mellitus, Hyperlipidemia, Hypertension, Osteoarthritis (OA), Prostate Disorder, Renal Disease, Sleep Apnea/CPAP/BIPAP, Supraventricular Tachycardia (SVT), Syncope, Vascular Disorder Additional Past Medical History / Comment(s): BACK PAIN , CVA 2013 and TIA 2014- short-term memory problems, rt side still slightly weaker , hx occ double vision & vertigo, tinnitus., sleep apnea (no machine), states kidney disease improving, uses walker prn., states sore on his tailbone.,wears continues glucose monitor on abd., states positive cologard., urine incontinence -wears pads History of Any Multi-Drug Resistant Organisms: None Reported Past Surgical History: Appendectomy, Coronary Bypass/CABG, Heart Catheterization, Hernia Repair, Joint Replacement Additional Past Surgical History / Comment(s): RIGHT HIP REPLACEMENT 2002. Left hip arthroplasty anterior approach 09/09/2018. Quadruple Bypass . Past Anesthesia/Blood Transfusion Reactions: No Reported Reaction Past Psychological History: Anxiety, Depression Smoking Status: Current every day smoker Past Alcohol Use History: Rare Past Drug Use History: Marijuana - Past Family History Father Family Medical History: Myocardial Infarction (ME) Mother Family Medical History: Coronary Artery Disease (CAD) Daughter(s) Family Medical History: No Reported History Son(s) Family Medical History: No Reported History Medications and Allergies Home Medications Medication Instructions Recorded Confirmed Type Aspirin [Adult Low Dose Aspirin EC] 81 mg PO HS 01/26/17 08/29/22 History Fenofibrate Nanocrystallized 145 mg PO HS 09/01/18 08/29/22 History [Fenofibrate] allopurinoL [Zyloprim] 100 mg PO HS 09/01/18 08/29/22 History Atorvastatin [Lipitor] 80 mg PO HS 05/16/21 08/29/22 History Ezetimibe [Zetia] 10 mg PO HS 05/16/21 08/29/22 History Dapagliflozin Propanediol [Farxiga] 5 mg PO HS 07/10/22 08/29/22 History Ergocalciferol (Vitamin D2) 1,250 mcg PO MOTH 07/10/22 08/29/22 History [Drisdol (50,000 Iu)] Prazosin HCl 2 mg PO HS 07/10/22 08/29/22 History Sertraline [Zoloft] 50 mg PO HS 07/10/22 08/29/22 History Clopidogrel [Plavix] 75 mg PO DAILY #30 tablet 07/15/22 08/29/22 Rx amLODIPine [Norvasc] 10 mg PO DAILY #0 07/15/22 08/29/22 Rx ARIPiprazole [Abilify] 5 mg PO DAILY 08/29/22 08/29/22 History Donepezil [Aricept] 5 mg PO HS 08/29/22 08/29/22 History Meclizine [Antivert] 12.5 mg PO TID PRN 08/29/22 08/29/22 History carvediloL phosphate [Carvedilol 10 mg PO DAILY 08/29/22 08/29/22 History ER] hydrALAZINE HCL [Apresoline] 25 mg PO TID PRN 08/29/22 08/29/22 History Allergies Allergy/AdvReac Type Severity Reaction Status Date / Time No Known Allergies Allergy Verified 08/29/22 17:03 Surgical - Exam Vital Signs Temp Pulse Resp BP Pulse Ox 98.2 F 77 20 202/71 99 08/29/22 13:04 08/29/22 13:04 08/29/22 13:04 08/29/22 13:04 08/29/22 13:04 General appearance: The patient is alert, oriented, appears in no acute distress. HET: Head is normocephalic and atraumatic. Pupils are equal and reactive. Neck: Supple. Heart: Regular. Lungs: Equal expansion, normal respiratory effort. Abdomen: Soft, nontender, nondistended. Extremities: Normal skin color and turgor. Neurological: Alert and oriented 3, speech is fluent, has facial symmetry. Patient appears to have some right upper extremity weakness compared to left, good strength and tone bilateral lower extremities. Results - Labs 08/30/22 05:34 09/01/22 06:46 Abnormal Lab Results - Last 24 Hours (Table) 08/31/22 08/31/22 08/31/22 Range/Units 12:13 17:31 21:10 Chloride (98-107) mmol/L Carbon Dioxide (22-30) mmol/L BUN (9-20) mg/dL Creatinine (0.66-1.25) mg/dL Glucose (74-99) mg/dL POC Glucose (mg/dL) 199 H 131 H 187 H (70-110) mg/dL Calcium (8.4-10.2) mg/dL 09/01/22 Range/Units 06:46 Chloride 114 H (98-107) mmol/L Carbon Dioxide 15 L (22-30) mmol/L BUN 30 H (9-20) mg/dL Creatinine 2.35 H (0.66-1.25) mg/dL Glucose 107 H (74-99) mg/dL POC Glucose (mg/dL) (70-110) mg/dL Calcium 8.0 L (8.4-10.2) mg/dL Diabetes panel 09/01/22 Range/Units 06:46 Sodium 137 (137-145) mmol/L Potassium 4.9 (3.5-5.1) mmol/L Chloride 114 H (98-107) mmol/L Carbon Dioxide 15 L (22-30) mmol/L BUN 30 H (9-20) mg/dL Creatinine 2.35 H (0.66-1.25) mg/dL Glucose 107 H (74-99) mg/dL Calcium 8.0 L (8.4-10.2) mg/dL Calcium panel 09/01/22 Range/Units 06:46 Calcium 8.0 L (8.4-10.2) mg/dL Pituitary panel 09/01/22 Range/Units 06:46 Sodium 137 (137-145) mmol/L Potassium 4.9 (3.5-5.1) mmol/L Chloride 114 H (98-107) mmol/L Carbon Dioxide 15 L (22-30) mmol/L BUN 30 H (9-20) mg/dL Creatinine 2.35 H (0.66-1.25) mg/dL Glucose 107 H (74-99) mg/dL Calcium 8.0 L (8.4-10.2) mg/dL Adrenal panel 09/01/22 Range/Units 06:46 Sodium 137 (137-145) mmol/L Potassium 4.9 (3.5-5.1) mmol/L Chloride 114 H (98-107) mmol/L Carbon Dioxide 15 L (22-30) mmol/L BUN 30 H (9-20) mg/dL Creatinine 2.35 H (0.66-1.25) mg/dL Glucose 107 H (74-99) mg/dL Calcium 8.0 L (8.4-10.2) mg/dL - Imaging Comments: See HPI for details Assessment and Plan Assessment: 1. Vertigo, positional 2. Gait imbalance 3. Left common carotid artery occlusion, diminutive left vertebral artery system 4. Acute/subacute CVA with scattered foci in bilateral cerebellar hemispheres, left thalamus and right insular cortex with white matter seen on brain MRI 5. Remote injury of the right basal ganglia and right darling radiata 6. History of CVA 2013 with residual right-sided weakness 7. Coronary artery disease status post CABG 8. Chronic kidney disease 9. Nicotine abuse, one pack per day greater than 40 years 10. History of COPD 11. History of heart failure 12. History of diabetes mellitus 13. History of hypertension and hyperlipidemia Plan: 1. Continue aspirin, Plavix and Lipitor as ordered 2. There is no indication for any vascular surgical intervention at this time 3. Continue with workup and recommendations from neurology 4. Agree with OT/PT consultation for evaluation and treatment for vertigo 5. Patient may follow-up with vascular surgery in the outpatient setting. Thank you for this consultation, we'll continue to follow. The impression and plan of care has been dictated as directed. I performed a history and examination of this patient, discussed the same with the dictator. I agree with the dictator's note ,documented as a scribe. Any additional findings or plans will be noted.
--- NOTE | 2022-09-01 12:34 | P.NPCON ---
History of Present Illness - Reason for Consult chronic renal failure - History of Present Illness Patient is a 66-year-old male with history of CK D stage IV with baseline creatinine around 2.3 mg/dL secondary to diabetic kidney disease with about 3 g of proteinuria upon workup in 2018. All serologies were negative. Patient is admitted to the hospital with complaints of severe dizziness which progressively worsened prior to admission. Initial CT was negative however MRI shows evidence of acute/subacute cerebellar CVA. Neurology is on consult. Patient states that his blood pressure was running high for the past few days as outpatient and meds were increased by PCP SABAS inhibitor's discontinued last hospitalization in June due to hyperkalemia. Patient was maintained on Coreg, hydralazine and amlodipine prior to admission. Renal function has been stable with serum creatinine at 2.3 mg/dL. Review of Systems As per HPI Past Medical History Past Medical History: Coronary Artery Disease (CAD), Chest Pain / Angina, Heart Failure, COPD, CVA/TIA, Diabetes Mellitus, Hyperlipidemia, Hypertension, Osteoarthritis (OA), Prostate Disorder, Renal Disease, Sleep Apnea/CPAP/BIPAP, Supraventricular Tachycardia (SVT), Syncope, Vascular Disorder Additional Past Medical History / Comment(s): BACK PAIN , CVA 2013 and TIA 2014- short-term memory problems, rt side still slightly weaker , hx occ double vision & vertigo, tinnitus., sleep apnea (no machine), states kidney disease improving, uses walker prn., states sore on his tailbone.,wears continues glucose monitor on abd., states positive cologard., urine incontinence -wears pads History of Any Multi-Drug Resistant Organisms: None Reported Past Surgical History: Appendectomy, Coronary Bypass/CABG, Heart Catheterization, Hernia Repair, Joint Replacement Additional Past Surgical History / Comment(s): RIGHT HIP REPLACEMENT 2002. Left hip arthroplasty anterior approach 09/09/2018. Quadruple Bypass . Past Anesthesia/Blood Transfusion Reactions: No Reported Reaction Past Psychological History: Anxiety, Depression Smoking Status: Current every day smoker Past Alcohol Use History: Rare Past Drug Use History: Marijuana - Past Family History Father Family Medical History: Myocardial Infarction (ME) Mother Family Medical History: Coronary Artery Disease (CAD) Daughter(s) Family Medical History: No Reported History Son(s) Family Medical History: No Reported History Medications and Allergies Home Medications Medication Instructions Recorded Confirmed Type Aspirin [Adult Low Dose Aspirin EC] 81 mg PO HS 01/26/17 08/29/22 History Fenofibrate Nanocrystallized 145 mg PO HS 09/01/18 08/29/22 History [Fenofibrate] allopurinoL [Zyloprim] 100 mg PO HS 09/01/18 08/29/22 History Atorvastatin [Lipitor] 80 mg PO HS 05/16/21 08/29/22 History Ezetimibe [Zetia] 10 mg PO HS 05/16/21 08/29/22 History Dapagliflozin Propanediol [Farxiga] 5 mg PO HS 07/10/22 08/29/22 History Ergocalciferol (Vitamin D2) 1,250 mcg PO MOTH 07/10/22 08/29/22 History [Drisdol (50,000 Iu)] Prazosin HCl 2 mg PO HS 07/10/22 08/29/22 History Sertraline [Zoloft] 50 mg PO HS 07/10/22 08/29/22 History Clopidogrel [Plavix] 75 mg PO DAILY #30 tablet 07/15/22 08/29/22 Rx amLODIPine [Norvasc] 10 mg PO DAILY #0 07/15/22 08/29/22 Rx ARIPiprazole [Abilify] 5 mg PO DAILY 08/29/22 08/29/22 History Donepezil [Aricept] 5 mg PO HS 08/29/22 08/29/22 History Meclizine [Antivert] 12.5 mg PO TID PRN 08/29/22 08/29/22 History carvediloL phosphate [Carvedilol 10 mg PO DAILY 08/29/22 08/29/22 History ER] hydrALAZINE HCL [Apresoline] 25 mg PO TID PRN 08/29/22 08/29/22 History Allergies Allergy/AdvReac Type Severity Reaction Status Date / Time No Known Allergies Allergy Verified 08/29/22 17:03 Physical Exam Vitals: Vital Signs Temp Pulse Pulse Pulse Pulse Resp BP 09/01/22 08:00 69 79 79 69 16 09/01/22 07:00 97.9 F 69 16 154/77 09/01/22 02:00 97.8 F 71 14 08/31/22 20:00 97.7 F 75 79 79 18 08/31/22 15:00 97.3 F L 69 18 08/31/22 14:00 65 71 74 69 18 BP BP BP Pulse Ox 09/01/22 08:00 09/01/22 07:00 97 09/01/22 02:00 152/74 98 08/31/22 20:00 127/73 116/69 127/66 98 08/31/22 15:00 151/75 98 08/31/22 14:00 Intake and Output 08/31/22 09/01/22 09/01/22 22:59 06:59 14:59 Output Total 200 400 Balance -200 -400 Output: Urine 200 400 Other: Voiding Method Urinal Urinal Urinal # Voids 1 Patient is awake, comfortable, no acute distress Examination of the heart S1 and S2 Examination of the lungs bilateral breath sounds are heard Abdomen is soft nontender Examination of the lower extremities shows no significant edema No obvious motor deficits noted. Results - Lab Results Most recent lab results Calcium 8.0 mg/dL (8.4-10.2) L 09/01/22 06:46 Magnesium 1.9 mg/dL (1.6-2.3) 08/29/22 13:45 08/30/22 05:34 09/01/22 06:46 Assessment and Plan Assessment: 1. Chronic kidney disease NKF stage IIIB to 4 with baseline creatinine around 2 mg/dL. Etiology is diabetic kidney disease with about 3 g of proteinuria in 2018. Urine protein creatinine ratio was 5.8 on 07/11/2022. Patient is maintained on farxiga. Sabas inhibitors was discontinued last hospitalization in June due to hyperkalemia. 2. Acute cerebellar CVA being followed by neurology. Symptoms of severe dizziness/vertigo. 3. Hypertension uncontrolled, hydralazine does has been increased. Continue off of SABAS inhibitor's due to persistent hyperkalemia. 4. Hyperkalemia associated with advanced CK D. Currently off of SABAS inhibitor's. Underlying metabolic acidosis also contributing to the hype rkalemia. Patient will be maintained on low potassium diet. Low-dose loop diuretics will be beneficial as well. Rule out urine retention 5. Non-gap metabolic acidosis secondary to advanced chronic kidney disease maintained on sodium bicarb. Add IV bicarb for about 24 hours Plan: Change IV fluids to IV bicarb Continue with oral sodium bicarb Continue off of SABAS inhibitor's Increase hydralazine if blood pressure remains uncontrolled. Goal blood pressure systolic about 1:30 to 1 40 mmHg Increase farxiga to 10 mg. Thank you for the consultation. We will continue to follow the patient with you during her hospitalization.
[2022-09-01 12:41] LABS: Glucose,Whole Blood 108 mg/dL (70-110)
[2022-09-01] MEDS: DEXTROSE 5% IN WATER 1,000 ML with SODIUM BICARB (1 MEQ/ML) 100 ML IV SCH (13:30)
--- NOTE | 2022-09-01 17:16 | P.PN ---
Subjective Progress Note Date: 09/01/22 The patient is seen at bedside and feels about the same. Per nurse he is doing better today compared to yesterday ad is sitting up which he could not do yesterday. Patient stated he was taking ASA and Plavix at home. Objective - Vital Signs Vital signs: Vital Signs Temp 98.2 F 09/01/22 15:00 Pulse 75 09/01/22 15:00 Resp 18 09/01/22 15:00 BP 154/76 09/01/22 15:00 Pulse Ox 99 09/01/22 15:00 FiO2 Intake & Output 08/31/22 09/01/22 09/01/22 18:59 06:59 18:59 Intake Total 118 Output Total 300 600 Balance -182 -600 Intake: Oral 118 Output: Urine 300 600 Other: Voiding Method Urinal Urinal Urinal # Voids 3 1 3 - Exam Neuro: Is alert, oriented X3. Following simple commands. No aphasia VFF to confrontation. EOM intact and no nystagmus. No facial weakness. No dysarthria. Motor: Strength is 5/5 throughout. Cerebellar: Normal finger to nose bilaterally. - Labs CBC & Chem 7: 08/30/22 05:34 09/01/22 06:46 Labs: Abnormal Lab Results - Last 24 Hours (Table) 08/31/22 08/31/22 09/01/22 Range/Units 17:31 21:10 06:46 Chloride 114 H (98-107) mmol/L Carbon Dioxide 15 L (22-30) mmol/L BUN 30 H (9-20) mg/dL Creatinine 2.35 H (0.66-1.25) mg/dL Glucose 107 H (74-99) mg/dL POC Glucose (mg/dL) 131 H 187 H (70-110) mg/dL Calcium 8.0 L (8.4-10.2) mg/dL Assessment and Plan Assessment: 1. Continued, recurrent dizziness and ataxia due to acute/subacute left thalamus stroke. No IV tpa since outside window and risk outweigh benefit. 2. Suspected left common carotid artery occlusion on MRA 3. History of stroke in 2013 4. History of hypertension 5. History of hyperlipidemia 6. History of coronary artery disease 7. End-stage renal disease 8. History of diabetes mellitus Plan: 1.MRI of the brain: It is reported as acute/subacute CVA with scattered foci of restricted diffusion seen in bilateral cerebellar hemisphere, left thalamus and the right insular cortex white matter. More remote appearing injury of the right basal ganglia and right darling radiata. Correlate for embolic phenomena. Nonspecific white matter changes likely secondary due to small vessel ischemic disease. There is bilateral mastoid air cell diffusion. I personally reviewed the MRI and I only felt the patient had restricted diffusion over the left thalamus and not cerebellar. I spoke with reading radiologist Dr. Palacios and he agrees and placed an addendum. MRA head and neck is reported as dispenses occlusion on left common carotid ar jovani with reconstitution of the left carotid system at the internal carotid artery and then mid neck. Findings similar to ultrasound carotid on 07/15/2022. There is motion artifact which limits evaluation of the inferior, carotid system which could probably better evaluated with a CTA. Diminutive and/or absent left vertebral artery system which appears to reconstitute at the level of C3-C4. This can be further evaluated the CT and neck given the motion limits resolution. 2. He is on ASA 81mg daily and Plavix 75mg daily which was his home medication so since he failed Plavix, I stopped it and started him on Brilinta 90mg 1 tab bid. Also on Lipitor 80mg qhs. 3. Neuro check 4. Cardiac monitoring. Recommend event monitor for 30days. 5. Ordered Lipid panel and 2D echo. 6. Physical therapy for balance training 7. Vascular surgery is consulted for carotid occlusion. I will get a repeat carotid duplex. 8. Will defer the rest of medical management to primary team. 9. For DVT prophylaxis: on subq heparin. Recommend the patient to follow-up with neurologist as outpatien within 1-2 week s. Plan is discussed with patient and N.P. from primary team's. Time with Patient: Less than 30
[2022-09-01 17:38] LABS: Glucose,Whole Blood 144 mg/dL (70-110)
--- NOTE | 2022-09-01 18:13 | US ---
EXAMINATION TYPE: US carotid duplex BILAT DATE OF EXAM: 09/01/2022 COMPARISON: 07/15/22. MRI 08/31/22 CLINICAL INDICATION: Male, 66 years old with history of stroke. ?left carotid occlusion; Left CCA oc clusion TECHNIQUE: Carotid duplex ultrasound examination. Indirect Doppler criteria was utilized. FINDINGS: EXAM MEASUREMENTS: RIGHT: Peak Systolic Velocity (PSV) cm/sec ----- Right CCA: 88.6 ----- Right ICA: 116.1 ----- Right ECA: 329.7 ICA/CCA ratio: 1.3 RIGHT: End Diastole cm/sec ----- Right CCA: 20.2 ----- Right ICA: 28.9 ----- Right ECA: 38.4 LEFT: Peak Systolic Velocity (PSV) cm/sec ----- Left CCA: 0.0 ----- Left ICA: 57.4 ----- Left ECA: 49.7 LEFT: End Diastole cm/sec ----- Left CCA: 0.0 ----- Left ICA: 21.1 ----- Left ECA: 13.4 VERTEBRALS (direction of flow): Right Vertebral: Antegrade Left Vertebral: Antegrade Rhythm: Normal [employer] NOTES: Right prox ECA has elevated velocities, but mid ECA is normal. Left CCA appears to have little to no flow, but bulb, ICA and ECA appears patent. Similar to previous IMPRESSION: 1. Occlusion of the left common carotid artery there is reconstitution within the internal carotid a rtery on the left. 2. Less than 50% stenosis of the right carotid bifurcation. Criteria for Assigning % of Stenosis / Diameter reduction (Estimation based on the indirect measurements of the internal carotid artery velocities (ICA PSV). 1. Normal (no stenosis)=ICA PSV < 125 cm/s: ratio < 2.0: ICA EDV<40 cm/s. 2. Less than 50% stenosis=ICA PSV < 125 cm/s: ratio < 2.0: ICA EDV<40 cm/s. 3. 50 to 69% stenosis=ICA PSV of 125 to 230 cm/s: ration 2.0 ? 4.0: ICA EDV 40-100 cm/s. 4. Greater than 70% stenosis to near occlusion= ICA PSV > 230 cm/s: ratio > 4.0: ICA EDV > 100 cm/s. 5. Near occlusion= ICA PSV velocities may be low or undetectable: variable ratio and ICA EDV. 6. Total occlusion=unable to detect flow.
[2022-09-01] MEDS: SERTRALINE 50 MG TAB PO SCH (20:21)
[2022-09-01] MEDS: DONEPEZIL 5 MG TAB PO SCH (20:21)
[2022-09-01] MEDS: ASPIRIN 81 MG PO SCH (20:21)
[2022-09-01] MEDS: EZETIMIBE 10 MG TAB PO SCH (20:21)
[2022-09-01] MEDS: allopurinoL 100 MG TAB PO SCH (20:21)
[2022-09-01] MEDS: DAPAGLIFLOZIN PROPANEDIOL 5 MG TABLET PO SCH (20:21)
[2022-09-01] MEDS: ATORVASTATIN 80 MG TAB PO SCH (20:21)
[2022-09-01] MEDS: PRAZOSIN 1 MG CAP PO SCH (20:21)
[2022-09-01] MEDS: FENOFIBRATE 160 MG TAB PO SCH (20:21)
[2022-09-01] MEDS: TICAGRELOR 90 MG TAB PO SCH (20:46)
[2022-09-01 21:01] LABS: Glucose,Whole Blood 143 mg/dL (70-110)
[2022-09-02 02:30] LABS: Chol/HDL Ratio 3.83 Ratio; LDL Cholesterol,Calculated 77.2 mg/dL
[2022-09-02] MEDS: DEXTROSE 5% IN WATER 1,000 ML with SODIUM BICARB (1 MEQ/ML) 100 ML IV SCH ×2 (03:47→17:21)
--- NOTE | 2022-09-02 05:36 | P.PN ---
Subjective Progress Note Date: 09/01/22 Patient was [id number] male with chronic kidney disease stage IV came in for a compensative vertigo. Patient was hospitalized in month of June for similar symptoms was diagnosed with peripheral vertigo was discharged with follow-up with ENT. Patient continued to have symptoms. Patient has some generalized weakness without any ataxia or any other cerebellar signs. Patient does take meclizine at home. Patient had extensive workup during last hospital was CT of the head did not show any abnormality Noted Doppler was done which showed lack of flow in the left common carotid although a fentanyl and carotid did have flow, with a normal flow in the right common carotid. It was also read as increased velocity in the right external carotid artery which may reflect severe stenosis. Considering his chronic kidney disease with an adopted a CT angiogram of the head and neck. Patient's vertigo is persistent precipitated by movement of the head denied any fullness in the ears but did complain of ringing in the ears. No other focal weakness was evident clearly although patient does have generalized weakness. 08/31/2022 Patient is seen and evaluated in follow-up is morning continues to report extreme dizziness and feeling awful. Patient has continuous nausea although reports tolerating some diet. Patient being followed by neurology awaiting to undergo MRA and MRI of the brain which is currently pending. Per nursing staff MRI scheduled for sometime after 4:30 this afternoon. Patient will need most likely this tubular rehabilitation in the outpatient setting. Patient is afebrile denies chest pain or shortness of breath. Patient's potassium came back at 5.8 and will give a dose of lokelma and follow-up with repeat labs in the a.m. Await PT/OT therapy evaluation as well. 09/01/2022 Patient is seen and evaluated in follow-up this morning and had MRI brain which was consistent with acute/subacute infarct noted. Neurology following undergoing extensive workup and repeat carotid Doppler was ordered. Recommending vascular surgery consult has MRA noted left artery occlusion. Patient continues to report dizziness although per nursing staff is more functional today. Will await PT/OT therapy evaluation. Per nursing staff patient is refusing to go to rehab and will discuss further with social work is following. Patient is currently afebrile denies chest pain or shortness of breath. No reports of vomiting patient continues with intermittent nausea. Nephrology placed on consult is kidney functions have worsened being started on bicarb. Recommend follow-up labs in a.m. Review of systems: Constitutional: No reports of fatigue, fever, or chills Cardiovascular: No reports of chest pain or palpitations Respiratory: No reports of shortness of breath or cough GI: reports of occasional nausea, no vomiting, or diarrhea : No reports of dysuria or retention Neurovascular: reports of generalized weakness with continued dizziness All medications have been reviewed PHYSICAL EXAMINATION: GENERAL: The patient is alert and oriented x3, Thin built, elderly appearing HEENT: Pupils are round and equally reacting to light. EOMI. No scleral icterus. No conjunctival pallor. Normocephalic, atraumatic. No pharyngeal erythema. No thyromegaly. CARDIOVASCULAR: S1 and S2 muffled PULMONARY: Chest is clear to auscultation, no wheezing or crackles. ABDOMEN: Soft, nontender, nondistended, normoactive bowel sounds. No palpable organomegaly. MUSCULOSKELETAL: No joint swelling or deformity. EXTREMITIES: No cyanosis, clubbing, or pedal edema. NEUROLOGICAL: Gross neurological examination did not reveal any focal deficits. Diffusely weak SKIN: No rashes. 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 MRI consistent with acute infarct the left thalamus MRA showing of occlusion and vascular surgery consulted with repeat carotid Dopplers ordered Patient was maintained on aspirin and Plavix and being switched over to Brilinta per neurology Kidney function is worsening and will consult nephrology being started on bicarb Recommend follow-up labs in the a.m. Most likely will need vestibular rehab outpatient Recommend monitor Accu-Cheks before meals and at bedtime we'll use current regimen Recommend PT/OT therapy evaluation and daily and will discuss further with soci al work if ECF is required. Currently patient is refusing to go to rehab Due to multiple complex medical issues, prognosis is guarded Possible discharge in the next 24-48 hours The impression and plan of care has been dictated by Princess Hanna, Nurse Practitioner as directed. Dr. Gianni MD I have performed a history and examination and MDM of this patient, discussed the same with the dictator, and agree with the dictator's assessment and plan as written ,documented as a scribe. Based on total visit time, I have performed more than 50% of the visit. Objective - Vital Signs Vital signs: Vital Signs Temp 97.9 F 09/01/22 07:00 Pulse 69 09/01/22 08:00 Resp 16 09/01/22 08:00 BP 154/77 09/01/22 07:00 Pulse Ox 97 09/01/22 07:00 FiO2 Intake & Output 08/31/22 09/01/22 09/01/22 18:59 06:59 18:59 Intake Total 118 Output Total 300 600 Balance -182 -600 Intake: Oral 118 Output: Urine 300 600 Other: Voiding Method Urinal Urinal Urinal # Voids 3 1 - Labs CBC & Chem 7: 08/30/22 05:34 09/01/22 06:46 Labs: Abnormal Lab Results - Last 24 Hours (Table) 08/31/22 08/31/22 09/01/22 Range/Units 17:31 21:10 06:46 Chloride 114 H (98-107) mmol/L Carbon Dioxide 15 L (22-30) mmol/L BUN 30 H (9-20) mg/dL Creatinine 2.35 H (0.66-1.25) mg/dL Glucose 107 H (74-99) mg/dL POC Glucose (mg/dL) 131 H 187 H (70-110) mg/dL Calcium 8.0 L (8.4-10.2) mg/dL
[2022-09-02 06:07] LABS: Glucose,Whole Blood 138 mg/dL (70-110)
[2022-09-02] MEDS: INSULIN ASPART (NovoLOG) 100 UNIT/ML VIAL SQ SCH ×4 (06:24→20:23)
[2022-09-02] MEDS: carvediloL 12.5 MG TAB PO SCH ×2 (06:30→17:20)
[2022-09-02 06:52] LABS: Basophils % (A) 0 %; Eosinophils # (A) 0.1 k/uL (0-0.7); Eosinophils % (A) 1 %; HCT 34.3 % (39.0-53.0); Lymphocytes # (A) 0.9 k/uL (1.0-4.8); Lymphocytes % (A) 10 %; MCH 29.1 pg (25.0-35.0); MCHC 32.1 g/dL (31.0-37.0); MCV 90.7 fL (80.0-100.0); Mean Platelet Volume 7.8; Monocytes # (A) 0.5 k/uL (0-1.0); Monocytes % (A) 6 %; Neutrophils # (A) 6.9 k/uL (1.3-7.7); Neutrophils % (A) 81 %; Platelet Count 191 k/uL (150-450); Poikilocytosis Slight; RBC 3.78 m/uL (4.30-5.90); RDW 15.9 % (11.5-15.5); WBC 8.6 k/uL (3.8-10.6)
[2022-09-02 07:07] LABS: African American GFR (CKD) 30 (>60 ml/min/1.73 sqM); Anion Gap 7 mmol/L; Blood Urea Nitrogen 34 mg/dL (9-20); Carbon Dioxide 20 mmol/L (22-30); Chloride 109 mmol/L (98-107); Glucose 123 mg/dL (74-99); Non-African American GFR(CKD) 26 (>60 ml/min/1.73 sqM); Potassium 4.7 mmol/L (3.5-5.1); Sodium 136 mmol/L (137-145)
[2022-09-02] MEDS: HEPARIN SODIUM,PORCINE/PF 5,000 UNIT/0.5 ML SYRINGE SQ SCH ×2 (07:57→16:24)
[2022-09-02] MEDS: amLODIPine 10 MG TAB PO SCH (07:58)
[2022-09-02] MEDS: TICAGRELOR 90 MG TAB PO SCH ×2 (07:58→20:22)
[2022-09-02] MEDS: ARIPiprazole 5 MG TAB PO SCH (07:58)
[2022-09-02] MEDS: hydrALAZINE HCL 50 MG TAB PO SCH ×3 (07:58→20:22)
--- NOTE | 2022-09-02 10:42 | P.PN ---
Subjective Progress Note Date: 09/02/22 Principal diagnosis: Vertigo, common carotid artery occlusion Patient was seen and examined today as a follow-up. No acute changes through the night. Feels about the same. Yesterday he underwent MRI of brain, MRA of head and neck. Vascular surgery was consulted for common carotid artery occlusion. Yesterday evening he underwent carotid duplex that reported occlusion of the left common carotid artery with reconstitution within the internal carotid artery on the left and less than 50% stenosis of the right carotid bifurcation. Neurology discontinue Plavix and started patient on Brilinta 90 mg twice a day. Objective - Vital Signs Vital signs: Vital Signs Temp 98.1 F 09/02/22 07:00 Pulse 72 09/02/22 08:00 Resp 16 09/02/22 08:00 BP 183/70 09/02/22 07:00 Pulse Ox 99 09/02/22 01:30 FiO2 Intake & Output 09/01/22 09/02/22 09/02/22 18:59 06:59 18:59 Intake Total 90 Output Total 550 200 Balance -550 -110 Intake: Oral 90 Output: Urine 550 200 Other: Voiding Method Urinal Urinal Urinal # Voids 3 1 - Exam General appearance: The patient is alert, oriented, appears in no acute distre ss. HET: Head is normocephalic and atraumatic. Pupils are equal and reactive. Neck: Supple. No carotid bruit. Heart: Regular. Lungs: Equal expansion, normal respiratory effort. Abdomen: Soft, nontender, nondistended. Extremities: Normal skin color and turgor. Neurological: Alert and oriented 3, speech is fluent, has facial symmetry. Patient appears to have some right upper extremity weakness compared to left, good strength and tone bilateral lower extremities. - Labs CBC & Chem 7: 09/02/22 06:07 09/02/22 06:07 Labs: Abnormal Lab Results - Last 24 Hours (Table) 09/01/22 09/01/22 09/01/22 Range/Units 17:12 17:37 21:00 RBC (4.30-5.90) m/uL Hgb (13.0-17.5) gm/dL Hct (39.0-53.0) % RDW (11.5-15.5) % Lymphocytes # (1.0-4.8) k/uL Sodium (137-145) mmol/L Chloride (98-107) mmol/L Carbon Dioxide (22-30) mmol/L BUN (9-20) mg/dL Creatinine (0.66-1.25) mg/dL Glucose (74-99) mg/dL POC Glucose (mg/dL) 144 H 143 H (70-110) mg/dL Calcium (8.4-10.2) mg/dL Triglycerides 168.00 H mg/dL HDL Cholesterol 39.20 L mg/dL 09/02/22 09/02/22 09/02/22 Range/Units 06:06 06:07 06:07 RBC 3.78 L (4.30-5.90) m/uL Hgb 11.0 L (13.0-17.5) gm/dL Hct 34.3 L (39.0-53.0) % RDW 15.9 H (11.5-15.5) % Lymphocytes # 0.9 L (1.0-4.8) k/uL Sodium 136 L (137-145) mmol/L Chloride 109 H (98-107) mmol/L Carbon Dioxide 20 L (22-30) mmol/L BUN 34 H (9-20) mg/dL Creatinine 2.44 H (0.66-1.25) mg/dL Glucose 123 H (74-99) mg/dL POC Glucose (mg/dL) 138 H (70-110) mg/dL Calcium 8.0 L (8.4-10.2) mg/dL Triglycerides mg/dL HDL Cholesterol mg/dL Assessment and Plan Assessment: 1. Vertigo, positional 2. Gait imbalance 3. Left common carotid artery occlusion, diminutive left vertebral artery system 4. Acute/subacute CVA with scattered foci in bilateral cerebellar hemispheres, left thalamus and right insular cortex with white matter seen on brain MRI 5. Remote injury of the right basal ganglia and right darling radiata 6. History of CVA 2013 with residual right-sided weakness 7. Coronary artery disease status post CABG 8. Chronic kidney disease 9. Nicotine abuse, one pack per day greater than 40 years 10. History of COPD 11. History of heart failure 12. History of diabetes mellitus 13. History of hypertension and hyperlipidemia Plan: 1. Continue aspirin, and Lipitor, Plavix changed to Brilinta 90 mg twice a day per nephrology 2. There is no indication for any vascular surgical intervention at this time 3. Continue with workup and recommendations from neurology 4. Agree with OT/PT consultation for evaluation and treatment for vertigo 5. Recommend outpatient follow-up with ENT for further evaluation and workup of vertigo 6. Patient may follow-up with vascular surgery in the outpatient setting after being evaluated by ENT specialist Thank you for this consultation. The impression and plan of care has been dictated as directed. I performed a history and examination of this patient, discussed the same with the dictator. I agree with the dictator's note ,documented as a scribe. Any additional findings or plans will be noted.
--- NOTE | 2022-09-02 11:57 | P.PN ---
Subjective Patient is seen for follow-up for chronic kidney disease. He was admitted with severe dizziness and vertigo and diagnosed to have acute cerebellar CVA on MRI. Renal function is fairly stable. Blood pressure was uncontrolled but much improved, hydralazine has been increased. No significant complaints today except for dizziness Objective - Vital Signs Vital signs: Vital Signs Temp 98.1 F 09/02/22 07:00 Pulse 72 09/02/22 08:00 Resp 16 09/02/22 08:00 BP 183/70 09/02/22 07:00 Pulse Ox 99 09/02/22 01:30 FiO2 Intake & Output 09/01/22 09/02/22 09/02/22 18:59 06:59 18:59 Intake Total 90 Output Total 550 200 Balance -550 -110 Intake: Oral 90 Output: Urine 550 200 Other: Voiding Method Urinal Urinal Urinal # Voids 3 1 - Exam Patient is awake, comfortable, no acute distress Examination of the heart S1 and S2 Examination of the lungs bilateral breath sounds are heard Abdomen is soft nontender Examination of the lower extremities shows no significant edema No obvious motor deficits noted. - Labs CBC & Chem 7: 09/02/22 06:07 09/02/22 06:07 Labs: Abnormal Lab Results - Last 24 Hours (Table) 09/01/22 09/01/22 09/01/22 Range/Units 17:12 17:37 21:00 RBC (4.30-5.90) m/uL Hgb (13.0-17.5) gm/dL Hct (39.0-53.0) % RDW (11.5-15.5) % Lymphocytes # (1.0-4.8) k/uL Sodium (137-145) mmol/L Chloride (98-107) mmol/L Carbon Dioxide (22-30) mmol/L BUN (9-20) mg/dL Creatinine (0.66-1.25) mg/dL Glucose (74-99) mg/dL POC Glucose (mg/dL) 144 H 143 H (70-110) mg/dL Calcium (8.4-10.2) mg/dL Triglycerides 168.00 H mg/dL HDL Cholesterol 39.20 L mg/dL 09/02/22 09/02/22 09/02/22 Range/Units 06:06 06:07 06:07 RBC 3.78 L (4.30-5.90) m/uL Hgb 11.0 L (13.0-17.5) gm/dL Hct 34.3 L (39.0-53.0) % RDW 15.9 H (11.5-15.5) % Lymphocytes # 0.9 L (1.0-4.8) k/uL Sodium 136 L (137-145) mmol/L Chloride 109 H (98-107) mmol/L Carbon Dioxide 20 L (22-30) mmol/L BUN 34 H (9-20) mg/dL Creatinine 2.44 H (0.66-1.25) mg/dL Glucose 123 H (74-99) mg/dL POC Glucose (mg/dL) 138 H (70-110) mg/dL Calcium 8.0 L (8.4-10.2) mg/dL Triglycerides mg/dL HDL Cholesterol mg/dL Assessment and Plan Assessment: 1. Chronic kidney disease NKF stage IIIB to 4 with baseline creatinine around 2 mg/dL. Etiology is diabetic kidney disease with about 3 g of proteinuria in 2018. Urine protein creatinine ratio was 5.8 on 07/11/2022. Patient is maintained on farxiga. Sabas inhibitors was discontinued last hospitalization in June due to hyperkalemia. 2. Acute cerebellar CVA being followed by neurology. Symptoms of severe dizziness/vertigo. 3. Hypertension uncontrolled, hydralazine does has been increased. Continue off of SABAS inhibitor's due to persistent hyperkalemia. 4. Hyperkalemia associated with advanced CK D. Currently off of SABAS inhibitor's. Underlying metabolic acidosis also contributing to the hyperkalemia. Patient will be maintained on low potassium diet. Low-dose loop diuretics will be beneficial as well. Rule out urine retention 5. Non-gap metabolic acidosis secondary to advanced chronic kidney disease maintained on sodium bicarb. Add IV bicarb for about 24 hours Plan: Continue with IV bicarb Continue with oral sodium bicarb Continue off of SABAS inhibitor's Increase hydralazine if blood pressure remains uncontrolled. Goal blood pressure systolic about 130 to 140 mmHg Increase farxiga to 10 mg.
[2022-09-02 12:05] LABS: Glucose,Whole Blood 210 mg/dL (70-110)
--- NOTE | 2022-09-02 12:09 | CA ---
Transthoracic Echo Report Name: Chema Cerna Age: 66 Gender: M : 1955 Exam Date: 09/02/2022 10:32 Exam Location: [facility] Ht (in): 64 Wt (lb): 140 Ordering Physician: Carrillo Valdez MD Attending/Referring Phys: Valve Repairer Reclamation Jessica Phillips RDCS Procedure CPT: Indications: stroke Cardiac Hx: Technical Quality: Fair Contrast 1: Total Dose (mL): Contrast 2: Total Dose (mL): MEASUREMENTS (Male / Female) Normal Values 2D ECHO LV Diastolic Diameter PLAX 4.6 cm 4.2 - 5.9 / 3.9 - 5.3 cm LV Systolic Diameter PLAX 3.0 cm IVS Diastolic Thickness 1.2 cm 0.6 - 1.0 / 0.6 - 0.9 cm LVPW Diastolic Thickness 1.4 cm 0.6 - 1.0 / 0.6 - 0.9 cm LV Relative Wall Thickness 0.6 RV Internal Dim ED PLAX 3.2 cm LA Volume 89.6 cm??? 18 - 58 / 22 - 52 cm??? M-MODE Aortic Root Diameter MM 3.6 cm LA Systolic Diameter MM 4.1 cm LA Ao Ratio MM 1.1 AV Cusp Separation MM 2.2 cm DOPPLER AV Peak Velocity 128.2 cm/s AV Peak Gradient 6.6 mmHg AV Mean Velocity 95.2 cm/s AV Mean Gradient 4.0 mmHg AV Velocity Time Integral 30.4 cm LVOT Peak Velocity 115.9 cm/s LVOT Peak Gradient 5.4 mmHg LVOT Velocity Time Integral 24.6 cm MV Area PHT 3.2 cm??? Mitral E Point Velocity 71.0 cm/s Mitral A Point Velocity 99.8 cm/s Mitral E to A Ratio 0.7 MV Deceleration Time 235.7 ms MV E' Velocity 6.4 cm/s Mitral E to MV E' Ratio 11.2 TR Peak Velocity 222.0 cm/s TR Peak Gradient 19.7 mmHg Right Ventricular Systolic Press 24.7 mmHg FINDINGS Left Ventricle Mildly increased left ventricular wall thickness. Left ventricular cavity size normal. Normal left ventricular systolic function with no obvious regional wall motion abnormalities. Left ventricular ejection fraction is estimated at 55-60 %. Right Ventricle Normal right ventricular size and function. Right ventricular systolic pressure within normal limits. Right Atrium Normal right atrial size. Negative agitated saline bubble study for right to left shunt. Left Atrium Severely increased left atrial volume. Mildly increased left atrial area. Interatrial septal aneurysm. Mitral Valve Structurally normal mitral valve. [id number] mitral regurgitation. Aortic Valve Trileaflet aortic valve. No aortic valve stenosis or regurgitation. Tricuspid Valve Structurally normal tricuspid valve. Mild tricuspid regurgitation. Pulmonic Valve Trace pulmonic regurgitation. Pericardium No pericardial effusion. Aorta Normal size aortic root and proximal ascending aorta. CONCLUSIONS Normal LV systolic function No evidence of interatrial shunt by contrast/bubble study or color Doppler Previewed by: Dr. Enrique Villa MD (Electronically Signed) Final Date: 02 September 2022 12:08
--- NOTE | 2022-09-02 15:31 | P.PN ---
Subjective Progress Note Date: 09/02/22 Patient was [id number] male with chronic kidney disease stage IV came in for a compensative vertigo. Patient was hospitalized in month of June for similar symptoms was diagnosed with peripheral vertigo was discharged with follow-up with ENT. Patient continued to have symptoms. Patient has some generalized weakness without any ataxia or any other cerebellar signs. Patient does take meclizine at home. Patient had extensive workup during last hospital was CT of the head did not show any abnormality Noted Doppler was done which showed lack of flow in the left common carotid although a fentanyl and carotid did have flow, with a normal flow in the right common carotid. It was also read as increased velocity in the right external carotid artery which may reflect severe stenosis. Considering his chronic kidney disease with an adopted a CT angiogram of the head and neck. Patient's vertigo is persistent precipitated by movement of the head denied any fullness in the ears but did complain of ringing in the ears. No other focal weakness was evident clearly although patient does have generalized weakness. 08/31/2022 Patient is seen and evaluated in follow-up is morning continues to report extreme dizziness and feeling awful. Patient has continuous nausea although reports tolerating some diet. Patient being followed by neurology awaiting to undergo MRA and MRI of the brain which is currently pending. Per nursing staff MRI scheduled for sometime after 4:30 this afternoon. Patient will need most likely this tubular rehabilitation in the outpatient setting. Patient is afebrile denies chest pain or shortness of breath. Patient's potassium came back at 5.8 and will give a dose of lokelma and follow-up with repeat labs in the a.m. Await PT/OT therapy evaluation as well. 09/01/2022 Patient is seen and evaluated in follow-up this morning and had MRI brain which was consistent with acute/subacute infarct noted. Neurology following undergoing extensive workup and repeat carotid Doppler was ordered. Recommending vascular surgery consult has MRA noted left artery occlusion. Patient continues to report dizziness although per nursing staff is more functional today. Will await PT/OT therapy evaluation. Per nursing staff patient is refusing to go to rehab and will discuss further with social work is following. Patient is currently afebrile denies chest pain or shortness of breath. No reports of vomiting patient continues with intermittent nausea. Nephrology placed on consult is kidney functions have worsened being started on bicarb. Recommend follow-up labs in a.m. 09/02/2022 Patient is seen and evaluated in follow-up today with multiple medical consultations following including neurology undergoing further workup his MRI was confirming of an acute infarct. 2-D echo ordered and pending and nephrology following maintain on sodium bicarb recommending to continue for another 24 hours and follow-up with repeat labs. Patient continues with dizziness and will await PT recommendations and discuss further about possible rehab. Recommend physical therapy evaluation daily. Patient is afebrile denies chest pain or shortness of breath. Patient tolerating diet with occasional nausea and no vomiting noted. Review of systems: Constitutional: No reports of fatigue, fever, or chills Cardiovascular: No reports of chest pain or palpitations Respiratory: No reports of shortness of breath or cough GI: reports of occasional nausea, no vomiting, or diarrhea : No reports of dysuria or retention Neurovascular: reports of generalized weakness with continued dizziness All medications have been reviewed PHYSICAL EXAMINATION: GENERAL: The patient is alert and oriented x3, Thin built, elderly appearing HEENT: Pupils are round and equally reacting to light. EOMI. No scleral icterus. No conjunctival pallor. Normocephalic, atraumatic. No pharyngeal erythema. No thyromegaly. CARDIOVASCULAR: S1 and S2 muffled PULMONARY: Chest is clear to auscultation, no wheezing or crackles. ABDOMEN: Soft, nontender, nondistended, normoactive bowel sounds. No palpable organomegaly. MUSCULOSKELETAL: No joint swelling or deformity. EXTREMITIES: No cyanosis, clubbing, or pedal edema. NEUROLOGICAL: Gross neurological examination did not reveal any focal deficits. Diffusely weak SKIN: No rashes. 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 MRI consistent with acute infarct the left thalamus MRA showing of occlusion and vascular surgery following recommending no surgical intervention at this time and outpatient follow-up Patient was maintained on aspirin and Plavix and being switched over to Brilinta per neurology Kidney function is worsening and nephrology following maintained on bicarb Recommend follow-up labs in the a.m. Most likely will need vestibular rehab outpatient Recommend monitor Accu-Cheks before meals and at bedtime we'll use current regimen Recommend PT/OT therapy evaluation and daily and will discuss further with social work if ECF is required. Currently patient is refusing to go to rehab Due to multiple complex medical issues, prognosis is guarded Possible discharge in the next 24-48 hours The impression and plan of care has been dictated by Princess Hanna, Nurse Practitioner as directed. Dr. Gianni MD I have performed a history and examination and MDM of this patient, discussed the same with the dictator, and agree with the dictator's assessment and plan as written ,documented as a scribe. Based on total visit time, I have performed more than 50% of the visit. Objective - Vital Signs Vital signs: Vital Signs Temp 98.8 F 09/02/22 14:53 Pulse 68 09/02/22 14:53 Resp 16 09/02/22 14:53 BP 158/76 09/02/22 14:53 Pulse Ox 99 09/02/22 01:30 FiO2 Intake & Output 09/01/22 09/02/22 09/02/22 18:59 06:59 18:59 Intake Total 90 Output Total 550 200 Balance -550 -110 Intake: Oral 90 Output: Urine 550 200 Other: Voiding Method Urinal Urinal Urinal # Voids 3 1 3 # Bowel Movements 2 - Labs CBC & Chem 7: 09/02/22 06:07 09/02/22 06:07 Labs: Abnormal Lab Results - Last 24 Hours (Table) 09/01/22 09/01/22 09/01/22 Range/Units 17:12 17:37 21:00 RBC (4.30-5.90) m/uL Hgb (13.0-17.5) gm/dL Hct (39.0-53.0) % RDW (11.5-15.5) % Lymphocytes # (1.0-4.8) k/uL Sodium (137-145) mmol/L Chloride (98-107) mmol/L Carbon Dioxide (22-30) mmol/L BUN (9-20) mg/dL Creatinine (0.66-1.25) mg/dL Glucose (74-99) mg/dL POC Glucose (mg/dL) 144 H 143 H (70-110) mg/dL Calcium (8.4-10.2) mg/dL Triglycerides 168.00 H mg/dL HDL Cholesterol 39.20 L mg/dL 09/02/22 09/02/22 09/02/22 Range/Units 06:06 06:07 06:07 RBC 3.78 L (4.30-5.90) m/uL Hgb 11.0 L (13.0-17.5) gm/dL Hct 34.3 L (39.0-53.0) % RDW 15.9 H (11.5-15.5) % Lymphocytes # 0.9 L (1.0-4.8) k/uL Sodium 136 L (137-145) mmol/L Chloride 109 H (98-107) mmol/L Carbon Dioxide 20 L (22-30) mmol/L BUN 34 H (9-20) mg/dL Creatinine 2.44 H (0.66-1.25) mg/dL Glucose 123 H (74-99) mg/dL POC Glucose (mg/dL) 138 H (70-110) mg/dL Calcium 8.0 L (8.4-10.2) mg/dL Triglycerides mg/dL HDL Cholesterol mg/dL 09/02/22 Range/Units 12:03 RBC (4.30-5.90) m/uL Hgb (13.0-17.5) gm/dL Hct (39.0-53.0) % RDW (11.5-15.5) % Lymphocytes # (1.0-4.8) k/uL Sodium (137-145) mmol/L Chloride (98-107) mmol/L Carbon Dioxide (22-30) mmol/L BUN (9-20) mg/dL Creatinine (0.66-1.25) mg/dL Glucose (74-99) mg/dL POC Glucose (mg/dL) 210 H (70-110) mg/dL Calcium (8.4-10.2) mg/dL Triglycerides mg/dL HDL Cholesterol mg/dL
--- NOTE | 2022-09-02 16:03 | P.PN ---
Subjective Progress Note Date: 09/02/22 The patient is seen at bedside and feels he is doing well. Continues to have some dizziness but improving. No new neurological deficits. Objective - Vital Signs Vital signs: Vital Signs Temp 98.8 F 09/02/22 14:53 Pulse 68 09/02/22 14:53 Resp 16 09/02/22 14:53 BP 158/76 09/02/22 14:53 Pulse Ox 99 09/02/22 01:30 FiO2 Intake & Output 09/01/22 09/02/22 09/02/22 18:59 06:59 18:59 Intake Total 90 Output Total 550 200 Balance -550 -110 Intake: Oral 90 Output: Urine 550 200 Other: Voiding Method Urinal Urinal Urinal # Voids 3 1 3 # Bowel Movements 2 - Exam Neuro: Is alert, oriented X3. Following simple commands. No aphasia VFF to confrontation. EOM intact and no nystagmus. No facial weakness. No dysarthria. Motor: Strength is 5/5 throughout. Cerebellar: Normal finger to nose bilaterally. - Labs CBC & Chem 7: 09/02/22 06:07 09/02/22 06:07 Labs: Abnormal Lab Results - Last 24 Hours (Table) 09/01/22 09/01/22 09/01/22 Range/Units 17:12 17:37 21:00 RBC (4.30-5.90) m/uL Hgb (13.0-17.5) gm/dL Hct (39.0-53.0) % RDW (11.5-15.5) % Lymphocytes # (1.0-4.8) k/uL Sodium (137-145) mmol/L Chloride (98-107) mmol/L Carbon Dioxide (22-30) mmol/L BUN (9-20) mg/dL Creatinine (0.66-1.25) mg/dL Glucose (74-99) mg/dL POC Glucose (mg/dL) 144 H 143 H (70-110) mg/dL Calcium (8.4-10.2) mg/dL Triglycerides 168.00 H mg/dL HDL Cholesterol 39.20 L mg/dL 09/02/22 09/02/22 09/02/22 Range/Units 06:06 06:07 06:07 RBC 3.78 L (4.30-5.90) m/uL Hgb 11.0 L (13.0-17.5) gm/dL Hct 34.3 L (39.0-53.0) % RDW 15.9 H (11.5-15.5) % Lymphocytes # 0.9 L (1.0-4.8) k/uL Sodium 136 L (137-145) mmol/L Chloride 109 H (98-107) mmol/L Carbon Dioxide 20 L (22-30) mmol/L BUN 34 H (9-20) mg/dL Creatinine 2.44 H (0.66-1.25) mg/dL Glucose 123 H (74-99) mg/dL POC Glucose (mg/dL) 138 H (70-110) mg/dL Calcium 8.0 L (8.4-10.2) mg/dL Triglycerides mg/dL HDL Cholesterol mg/dL 09/02/22 Range/Units 12:03 RBC (4.30-5.90) m/uL Hgb (13.0-17.5) gm/dL Hct (39.0-53.0) % RDW (11.5-15.5) % Lymphocytes # (1.0-4.8) k/uL Sodium (137-145) mmol/L Chloride (98-107) mmol/L Carbon Dioxide (22-30) mmol/L BUN (9-20) mg/dL Creatinine (0.66-1.25) mg/dL Glucose (74-99) mg/dL POC Glucose (mg/dL) 210 H (70-110) mg/dL Calcium (8.4-10.2) mg/dL Triglycerides mg/dL HDL Cholesterol mg/dL Assessment and Plan Assessment: 1. Continued, recurrent dizziness and ataxia due to acute/subacute left thalamus and right insular cortex stroke. Unsure exact etiology. Seems embolic in nature/possible cardioembolic. I would expect left common carotid to give o ne hemispheric stroke but not shower to bilateral side. 2. Left common carotid artery occlusion on MRA and carotid duplex 3. History of stroke in 2013 4. History of hypertension 5. History of hyperlipidemia 6. History of coronary artery disease 7. End-stage renal disease 8. History of diabetes mellitus Plan: 1.MRI of the brain: It is reported as acute/subacute CVA with scattered foci of restricted diffusion seen in bilateral cerebellar hemisphere, left thalamus and the right insular cortex white matter. More remote appearing injury of the right basal ganglia and right darling radiata. Correlate for embolic phenomena. Nonspecific white matter changes likely secondary due to small vessel ischemic disease. There is bilateral mastoid air cell diffusion. I personally reviewed the MRI and I only felt the patient had restricted diffusion over the left thalamus and right insular cortex and not cerebellar. I spoke with reading radiologist Dr. Palacios and he agrees and placed an addendum. MRA head and neck is reported as dispenses occlusion on left common carotid artery with reconstitution of the left carotid system at the internal carotid artery and then mid neck. Findings similar to ultrasound carotid on 07/15/2022. There is motion artifact which limits evaluation of the inferior, carotid system which could probably better evaluated with a CTA. Diminutive and/or absent left vertebral artery system which appears to reconstitute at the level of C3-C4. This can be further evaluated the CT and neck given the motion limits resolution. 2. He is on ASA 81mg daily and Plavix 75mg daily which was his home medication so since he failed Plavix, I stopped it and started him on Brilinta 90mg 1 tab bid. Also on Lipitor 80mg qhs. For lipid panel frontal she was 68, cholesterol 150, LDL 77 and HDL 39. 3. Neuro check 4. Cardiac monitoring. Recommend event monitor for 30days. Consider MARLENE since echo was negative. 5. 2D echo: Reported as normal left ventricle systolic function. No evidence of intracranial shunt by contrast/bubble study or the color Doppler. 6. Physical therapy for balance training 7. Vascular surgery is consulted for carotid occlusion. Carotid duplex: Reported as occlusion left common carotid artery there is reconstitution in the internal carotid artery on the left. Less than 50% stenosis on the right. Per vascular no intervention on carotid. 8. Will defer the rest of medical management to primary team. 9. For DVT prophylaxis: on subq heparin. Recommend the patient to follow-up with neurologist as outpatien within 1-2 weeks. Plan is discussed with patient and N.P. from primary team's. Dr. Navarro will start neurology service tomorrow A.M. Time with Patient: Less than 30
[2022-09-02] MEDS: SODIUM BICARBONATE TAB 650 MG TAB PO SCH ×2 (16:25→20:22)
[2022-09-02 17:28] LABS: Glucose,Whole Blood 125 mg/dL (70-110)
[2022-09-02] MEDS: EZETIMIBE 10 MG TAB PO SCH (20:22)
[2022-09-02] MEDS: allopurinoL 100 MG TAB PO SCH (20:22)
[2022-09-02] MEDS: DONEPEZIL 5 MG TAB PO SCH (20:22)
[2022-09-02] MEDS: ATORVASTATIN 80 MG TAB PO SCH (20:22)
[2022-09-02] MEDS: PRAZOSIN 1 MG CAP PO SCH (20:22)
[2022-09-02] MEDS: DAPAGLIFLOZIN PROPANEDIOL 5 MG TABLET PO SCH (20:22)
[2022-09-02] MEDS: FENOFIBRATE 160 MG TAB PO SCH (20:22)
[2022-09-02] MEDS: ASPIRIN 81 MG PO SCH (20:23)
[2022-09-02] MEDS: SERTRALINE 50 MG TAB PO SCH (20:23)
[2022-09-02 20:25] LABS: Glucose,Whole Blood 236 mg/dL (70-110)
[2022-09-03] MEDS: HEPARIN SODIUM,PORCINE/PF 5,000 UNIT/0.5 ML SYRINGE SQ SCH ×4 (01:42→21:15)
[2022-09-03] MEDS: carvediloL 12.5 MG TAB PO SCH ×2 (06:26→17:51)
[2022-09-03 06:27] LABS: Glucose,Whole Blood 115 mg/dL (70-110)
[2022-09-03] MEDS: INSULIN ASPART (NovoLOG) 100 UNIT/ML VIAL SQ SCH ×4 (06:27→21:14)
[2022-09-03] MEDS: DEXTROSE 5% IN WATER 1,000 ML with SODIUM BICARB (1 MEQ/ML) 100 ML IV SCH ×2 (06:54→19:54)
[2022-09-03 08:54] LABS: African American GFR (CKD) 34 (>60 ml/min/1.73 sqM); Anion Gap 6 mmol/L; Blood Urea Nitrogen 32 mg/dL (9-20); Calcium 8.1 mg/dL (8.4-10.2); Carbon Dioxide 24 mmol/L (22-30); Chloride 105 mmol/L (98-107); Glucose 117 mg/dL (74-99); Non-African American GFR(CKD) 29 (>60 ml/min/1.73 sqM); Potassium 4.3 mmol/L (3.5-5.1); Sodium 135 mmol/L (137-145)
[2022-09-03] MEDS: LOSARTAN 25 MG TAB PO SCH (09:06)
[2022-09-03] MEDS: amLODIPine 10 MG TAB PO SCH (09:06)
[2022-09-03] MEDS: hydrALAZINE HCL 50 MG TAB PO SCH ×3 (09:06→21:15)
[2022-09-03] MEDS: TICAGRELOR 90 MG TAB PO SCH ×2 (09:06→21:15)
[2022-09-03] MEDS: SODIUM BICARBONATE TAB 650 MG TAB PO SCH ×3 (09:06→21:15)
[2022-09-03] MEDS: ERGOCALCIFEROL 1,250 MCG (50,000 IU) CAPSULE PO SCH (09:07)
[2022-09-03] MEDS: ARIPiprazole 5 MG TAB PO SCH (09:07)
--- NOTE | 2022-09-03 09:46 | P.PN ---
Subjective Progress Note Date: 09/03/22 Principal diagnosis: Vertigo, common carotid artery occlusion Patient was seen and examined sitting up in bed. No acute changes through the night. No new complaints. Cardiology was consulted for possible MARLENE however, they do not feel it is necessary. Patient denies any new focal deficits. Has continued right-sided weakness from previous stroke. Objective - Vital Signs Vital signs: Vital Signs Temp 97.6 F 09/03/22 08:43 Pulse 66 09/03/22 08:43 Resp 18 09/03/22 08:43 BP 128/66 09/03/22 08:43 Pulse Ox 99 09/03/22 08:43 FiO2 Intake & Output 09/02/22 09/03/22 09/03/22 18:59 06:59 18:59 Intake Total 298 Output Total 575 200 Balance -277 -200 Intake: Oral 298 Output: Urine 575 200 Other: Voiding Method Urinal Urinal # Voids 3 # Bowel Movements 2 1 - Exam General appearance: The patient is alert, oriented, appears in no acute distress. HET: Head is normocephalic and atraumatic. Pupils are equal and reactive. Neck: Supple. No carotid bruit. Heart: Regular. Lungs: Equal expansion, normal respiratory effort. Abdomen: Soft, nontender, nondistended. Extremities: Normal skin color and turgor. Neurological: Alert and oriented 3, speech is fluent, has facial symmetry. Christos cox appears to have some right upper extremity weakness compared to left, good strength and tone bilateral lower extremities. - Labs CBC & Chem 7: 09/02/22 06:07 09/03/22 08:08 Labs: Abnormal Lab Results - Last 24 Hours (Table) 09/02/22 09/02/22 09/02/22 Range/Units 12:03 17:26 20:23 POC Glucose (mg/dL) 210 H 125 H 236 H (70-110) mg/dL 09/03/22 Range/Units 06:26 POC Glucose (mg/dL) 115 H (70-110) mg/dL Assessment and Plan Assessment: 1. Vertigo, positional 2. Gait imbalance 3. Left common carotid artery occlusion, diminutive left vertebral artery system 4. Acute/subacute CVA with scattered foci in bilateral cerebellar hemispheres, left thalamus and right insular cortex with white matter seen on brain MRI 5. Remote injury of the right basal ganglia and right darling radiata 6. History of CVA 2013 with residual right-sided weakness 7. Coronary artery disease status post CABG 8. Chronic kidney disease 9. Nicotine abuse, one pack per day greater than 40 years 10. History of COPD 11. History of heart failure 12. History of diabetes mellitus 13. History of hypertension and hyperlipidemia Plan: 1. Continue aspirin, and Lipitor, Plavix changed to Brilinta 90 mg twice a day per nephrology 2. There is no indication for any vascular surgical intervention at this time 3. Continue with workup and recommendations from neurology 4. Agree with OT/PT consultation for evaluation and treatment for vertigo 5. Recommend outpatient follow-up with ENT for further evaluation and workup of vertigo 6. Recommend smoking cessation 7. Patient may follow-up with vascular surgery in the outpatient setting after being evaluated by ENT specialist. Symptoms not likely caused by carotid stenosis. Thank you for this consultation. The impression and plan of care has been dictated as directed. Dr. Ruiz I performed a history and examination of this patient, discussed the same with the dictator. I agree with the dictator's note ,documented as a scribe. Any additional findings or plans will be noted.
--- NOTE | 2022-09-03 11:20 | P.CRDCN ---
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 Patient follows in the office with Dr. Cowan. We have been asked to see the patient in consultation for carotid stenosis and possible MARLENE. Patient examined at the bedside. Patient presented to the hospital for dizziness and elevated blood pressure. The patient denies having any chest pain or pressure. He denies any shortness of breath. He reports having weakness in his right leg which is residual from his CVA in 2013. He denies any episodes of syncope. The patient states he has been dealing with symptoms of vertigo and was supposed to follow up with an ENT but he has not done this yet. * EKG reveals sinus mechanism with inferior lateral T-wave inversions * Laboratory data: WBC 8.6. Hemoglobin 11.0. Platelet count 191. Sodium 135. Potassium 4.3. BUN 32. Creatinine 2.24. * Current home cardiac medications include hydralazine 25 mg 3 times a day as needed, carvedilol 10 mg daily, Plavix 75 mg daily, Lipitor 80 mg at night, aspirin 81 mg daily, Zetia 10 mg at night, amlodipine 10 mg daily * Echocardiogram completed revealing ejection fraction 55-60%, negative bubble study, [id number] MR, and mild TR * Patient underwent MRA of the head and neck revealing suspected occlusion of the left common carotid artery with reconstitution of the left carotid system at the internal carotid artery in the mid neck. Findings are similar to ultrasound carotid performed in June 2022. There is some motion which limited evaluation of the inferior common carotid system which could probably be better evaluated with CT of the neck. Diminutive and/or absent left vertebral artery system which appears to reconstitute at the level of C3C4. * MRI of the brain: Acute/subacute CVA with scattered foci of restricted diffusion seen in the bilateral cerebellar hemispheres, left thalamus, and right insular cortex white matter. More remote-appearing injury of the right basal ganglia and right cornea radio. Nonspecific white matter changes. * Carotid Doppler occlusion of the left, carotid artery there is reconstitution within the internal carotid artery and the left. Less than 50% stenosis of the right carotid bifurcation * Patient underwent 4 vessel CABG in August 2016 with OJEDA to LAD, VGPDA, VG-OM2, VG-OM3 REVIEW OF SYSTEMS: At the time of my exam: CONSTITUTIONAL: Denies fever or chills. HEENT: Denies blurred vision, vision changes, or eye pain. Denies hemoptysis CARDIOVASCULAR: Denies chest pain. Denies orthopnea. Denies PND. Denies palpitations RESPIRATORY: Denies shortness of breath. GASTROINTESTINAL: Denies abdominal pain. Denies nausea or vomiting. HEMATOLOGIC: Denies bleeding disorders. GENITOURINARY: Denies any blood in urine. SKIN: Denies pruitis. Denies rash. PHYSICAL EXAM: VITAL SIGNS: Reviewed. GENERAL: Well-developed in no acute distress. HEENT: Head is normocephalic. Pupils are equal, round. Sclerae anicteric. Mucous membranes of the mouth are moist. Neck supple. No JVD or thyromegaly LUNGS: Respirations even and unlabored. Lungs essentially clear to auscultation bilaterally. HEART: Regular rate and rhythm. S1 and S2 heard. ABDOMEN: Soft. Nondistended. Nontender. EXTREMITIES: Normal range of motion. No clubbing or cyanosis. Peripheral pulses intact. No lower extremity edema NEUROLOGIC: Awake and alert. Oriented x 3. ASSESSMENT: Vertigo Hypertensive emergency on admission, improving Coronary artery disease with previous four-vessel CABG in 2017 History of CVA, 2013, with residual right-sided weakness Chronic kidney disease Left common carotid artery occlusion, diminutive left vertebral artery system Acute/subacute CVA with scattered foci and bilateral cerebral hemispheres, left thalamus, and right insular cortex white matter Hyperlipidemia COPD Diabetes Peripheral vascular disease PLAN: Continue current cardiac medications Add Losartan 25 mg daily for optimal blood pressure control as patient has stable CKD and also history of diabetes Patient instructed that he needs better blood pressure control 2-D echo with no evidence of PFO with negative bubble study. No plans for MARLENE at this time Further recommendations pending patient's course Nurse practitioner note has been reviewed by physician. Signing provider agrees with the documented findings, assessment, and plan of care. Past Medical History Past Medical History: Coronary Artery Disease (CAD), Chest Pain / Angina, Heart Failure, COPD, CVA/TIA, Diabetes Mellitus, Hyperlipidemia, Hypertension, Osteoarthritis (OA), Prostate Disorder, Renal Disease, Sleep Apnea/CPAP/BIPAP, Supraventricular Tachycardia (SVT), Syncope, Vascular Disorder Additional Past Medical History / Comment(s): BACK PAIN , CVA 2013 and TIA 2014- short-term memory problems, rt side still slightly weaker , hx occ double vision & vertigo, tinnitus., sleep apnea (no machine), states kidney disease improving, uses walker prn., states sore on his tailbone.,wears continues glucose monitor on abd., states positive cologard., urine incontinence -wears pads History of Any Multi-Drug Resistant Organisms: None Reported Past Surgical History: Appendectomy, Coronary Bypass/CABG, Heart Catheterization, Hernia Repair, Joint Replacement Additional Past Surgical History / Comment(s): RIGHT HIP REPLACEMENT 2002. Left hip arthroplasty anterior approach 09/09/2018. Quadruple Bypass . Past Anesthesia/Blood Transfusion Reactions: No Reported Reaction Past Psychological History: Anxiety, Depression Smoking Status: Current every day smoker Past Alcohol Use History: Rare Past Drug Use History: Marijuana - Past Family History Father Family Medical History: Myocardial Infarction ([place]) Mother Family Medical History: Coronary Artery Disease (CAD) Daughter(s) Family Medical History: No Reported History Son(s) Family Medical History: No Reported History Medications and Allergies Home Medications Medication Instructions Recorded Confirmed Type Aspirin [Adult Low Dose Aspirin EC] 81 mg PO HS 01/26/17 08/29/22 History Fenofibrate Nanocrystallized 145 mg PO HS 09/01/18 08/29/22 History [Fenofibrate] allopurinoL [Zyloprim] 100 mg PO HS 09/01/18 08/29/22 History Atorvastatin [Lipitor] 80 mg PO HS 05/16/21 08/29/22 History Ezetimibe [Zetia] 10 mg PO HS 05/16/21 08/29/22 History Dapagliflozin Propanediol [Farxiga] 5 mg PO HS 07/10/22 08/29/22 History Ergocalciferol (Vitamin D2) 1,250 mcg PO MOTH 07/10/22 08/29/22 History [Drisdol (50,000 Iu)] Prazosin HCl 2 mg PO HS 07/10/22 08/29/22 History Sertraline [Zoloft] 50 mg PO HS 07/10/22 08/29/22 History Clopidogrel [Plavix] 75 mg PO DAILY #30 tablet 07/15/22 08/29/22 Rx amLODIPine [Norvasc] 10 mg PO DAILY #0 07/15/22 08/29/22 Rx ARIPiprazole [Abilify] 5 mg PO DAILY 08/29/22 08/29/22 History Donepezil [Aricept] 5 mg PO HS 08/29/22 08/29/22 History Meclizine [Antivert] 12.5 mg PO TID PRN 08/29/22 08/29/22 History carvediloL phosphate [Carvedilol 10 mg PO DAILY 08/29/22 08/29/22 History ER] hydrALAZINE HCL [Apresoline] 25 mg PO TID PRN 08/29/22 08/29/22 History Allergies Allergy/AdvReac Type Severity Reaction Status Date / Time No Known Allergies Allergy Verified 08/29/22 17:03 Physical Exam Vitals: Vital Signs Temp Pulse Pulse Pulse Pulse Resp BP 09/03/22 01:42 97.4 F L 70 18 09/02/22 19:26 98.0 F 72 75 18 183/74 09/02/22 14:53 98.8 F 77 88 68 16 116/65 09/02/22 14:00 72 79 79 69 16 BP BP Pulse Ox 09/03/22 01:42 142/66 98 09/02/22 19:26 168/70 99 09/02/22 14:53 121/83 158/76 09/02/22 14:00 Intake and Output 09/02/22 09/03/22 09/03/22 22:59 06:59 14:59 Intake Total 118 Output Total 575 Balance -457 Intake: Oral 118 Output: Urine 575 Other: Voiding Method Urinal # Bowel Movements 1 Results 09/02/22 06:07 09/04/22 10:21 Current Medications Generic Name Dose Route Start Last Admin Trade Name Freq PRN Reason Stop Dose Admin Allopurinol 100 mg 08/29/22 21:00 09/02/22 20:22 Allopurinol 100 Mg Tab PO 100 mg HS [facility] Administration Amlodipine Besylate 10 mg 08/29/22 20:00 09/02/22 07:58 Amlodipine 10 Mg Tab PO 10 mg DAILY TERESA Administration Aripiprazole 5 mg 08/30/22 09:00 09/02/22 07:58 Aripiprazole 5 Mg Tab PO 5 mg DAILY TERESA Administration Aspirin 81 mg 08/29/22 21:00 09/02/22 20:23 Aspirin 81 Mg PO 81 mg HS TERESA Administration Atorvastatin Calcium 80 mg 08/29/22 21:00 09/02/22 20:22 Atorvastatin 80 Mg Tab PO 80 mg HS TERESA Administration Carvedilol 25 mg 08/29/22 20:00 09/03/22 06:26 Carvedilol 12.5 Mg Tab PO 25 mg BID-W/MEALS TERESA Administration Dapagliflozin 5 mg 08/29/22 21:00 09/02/22 20:22 Dapagliflozin Propanediol 5 Mg Tablet PO 5 mg HS TERESA Administration Dextrose/Water 25 ml 08/29/22 19:19 08/30/22 23:31 Dextrose 50% Syringe 50 Ml IVP 25 ml PER PROTOCOL PRN Administration Hypoglycemia Protocol Dextrose/Water 50 ml 08/29/22 19:19 Dextrose 50% Syringe 50 Ml IVP PER PROTOCOL PRN Hypoglycemia Protocol Donepezil HCl 5 mg 08/29/22 21:00 09/02/22 20:22 Donepezil 5 Mg Tab PO 5 mg HS TERESA Administration Ezetimibe 10 mg 08/29/22 21:00 09/02/22 20:22 Ezetimibe 10 Mg Tab PO 10 mg HS TERESA Administration Ergocalciferol 1,250 mcg 08/31/22 09:00 08/31/22 08:08 Ergocalciferol 1,250 Mcg (50,000 Iu) Capsule PO 1,250 mcg MoTh@0900 TERESA Administration Fenofibrate 160 mg 08/29/22 21:00 09/02/22 20:22 Fenofibrate 160 Mg Tab PO 160 mg HS TERESA Administration Heparin Sodium (Porcine) 5,000 unit 08/30/22 16:00 09/03/22 01:42 Heparin Sodium,Porcine/Pf 5,000 Unit/0.5 Ml Syringe SQ 5,000 unit Q8HR TERESA Administration Hydralazine HCl 10 mg 08/29/22 19:15 Hydralazine Hcl 20 Mg/Ml 1 Ml Vial IVP Q4HR PRN Blood Pressure - High Hydralazine HCl 50 mg 08/29/22 22:00 09/02/22 20:22 Hydralazine Hcl 50 Mg Tab PO 50 mg TID TERESA Administration Sodium Bicarbonate 100 ml/ 1,100 mls @ 75 mls/hr 09/01/22 12:45 09/03/22 06:54 Dextrose/Water IV 75 mls/hr .[id number] TERESA Administration Insulin Aspart 0 unit 08/29/22 21:00 09/03/22 06:27 Insulin Aspart (Novolog) 100 Unit/Ml Vial SQ Not Given ACHS TERESA Protocol Meclizine HCl 25 mg 08/29/22 16:53 Meclizine 25 Mg Tab PO TID PRN Vertigo Naloxone HCl 0.2 mg 08/29/22 16:41 Naloxone 0.4 Mg/Ml 1 Ml Vial IV Q2M PRN Opioid Reversal Prazosin HCl 2 mg 08/29/22 21:00 09/02/22 20:22 Prazosin 1 Mg Cap PO 2 mg HS TERESA Administration Sertraline HCl 50 mg 08/29/22 21:00 09/02/22 20:23 Sertraline 50 Mg Tab PO 50 mg HS TERESA Administration Sodium Bicarbonate 650 mg 09/02/22 16:00 09/02/22 20:22 Sodium Bicarbonate Tab 650 Mg Tab PO 650 mg TID TERESA Administration Ticagrelor 90 mg 09/01/22 21:00 09/02/22 20:22 Ticagrelor 90 Mg Tab PO 90 mg BID TERESA Administration Intake and Output 09/02/22 09/03/22 09/03/22 22:59 06:59 14:59 Intake Total 118 Output Total 575 Balance -457 Intake: Oral 118 Output: Urine 575 Other: Voiding Method Urinal # Bowel Movements 1 09/02/22 06:07 09/02/22 06:07
[2022-09-03 12:50] LABS: Glucose,Whole Blood 135 mg/dL (70-110)
--- NOTE | 2022-09-03 14:40 | P.PN ---
Subjective Progress Note Date: 09/03/22 Patient was [id number] male with chronic kidney disease stage IV came in for a compensative vertigo. Patient was hospitalized in month of June for similar symptoms was diagnosed with peripheral vertigo was discharged with follow-up with ENT. Patient continued to have symptoms. Patient has some generalized weakness without any ataxia or any other cerebellar signs. Patient does take meclizine at home. Patient had extensive workup during last hospital was CT of the head did not show any abnormality Noted Doppler was done which showed lack of flow in the left common carotid although a fentanyl and carotid did have flow, with a normal flow in the right common carotid. It was also read as increased velocity in the right external carotid artery which may reflect severe stenosis. Considering his chronic kidney disease with an adopted a CT angiogram of the head and neck. Patient's vertigo is persistent precipitated by movement of the head denied any fullness in the ears but did complain of ringing in the ears. No other focal weakness was evident clearly although patient does have generalized weakness. 08/31/2022 Patient is seen and evaluated in follow-up is morning continues to report extreme dizziness and feeling awful. Patient has continuous nausea although reports tolerating some diet. Patient being followed by neurology awaiting to undergo MRA and MRI of the brain which is currently pending. Per nursing staff MRI scheduled for sometime after 4:30 this afternoon. Patient will need most likely this tubular rehabilitation in the outpatient setting. Patient is afebrile denies chest pain or shortness of breath. Patient's potassium came back at 5.8 and will give a dose of lokelma and follow-up with repeat labs in the a.m. Await PT/OT therapy evaluation as well. 09/01/2022 Patient is seen and evaluated in follow-up this morning and had MRI brain which was consistent with acute/subacute infarct noted. Neurology following undergoing extensive workup and repeat carotid Doppler was ordered. Recommending vascular surgery consult has MRA noted left artery occlusion. Patient continues to report dizziness although per nursing staff is more functional today. Will await PT/OT therapy evaluation. Per nursing staff patient is refusing to go to rehab and will discuss further with social work is following. Patient is currently afebrile denies chest pain or shortness of breath. No reports of vomiting patient continues with intermittent nausea. Nephrology placed on consult is kidney functions have worsened being started on bicarb. Recommend follow-up labs in a.m. 09/02/2022 Patient is seen and evaluated in follow-up today with multiple medical consultations following including neurology undergoing further workup his MRI was confirming of an acute infarct. 2-D echo ordered and pending and nephrology following maintain on sodium bicarb recommending to continue for another 24 hours and follow-up with repeat labs. Patient continues with dizziness and will await PT recommendations and discuss further about possible rehab. Recommend physical therapy evaluation daily. Patient is afebrile denies chest pain or shortness of breath. Patient tolerating diet with occasional nausea and no vomiting noted. 09/03/2022 Patient is seen and evaluated in follow-up with vascular surgery, cardiology, nephrology, neurology following. Patient did have acute infarct noted with significant comorbidities and continues with dizziness and generalized weakness. Patient has past medical history of CVA/TIA as well. Patient was evaluated by vascular surgery no plans for surgical intervention at this time and may follow- up outpatient and also recommending ENT consultation outpatient. Patient was evaluated by cardiology as neurology felt possible MARLENE is recommended an echo with bubble study not indicative of any PFO and will not be performing MARLENE at this time. Patient has been switched over to Brilinta and will continue. Patient with weakness recommend physical therapy daily and will follow-up as patient is refusing to go to rehab. Nephrology following as well with kidney function slightly improved at 2.24 today and is continued on sodium bicarb. Will follow-up with repeat labs and discuss with consultations about possible discharge planning in 24 hours. Patient is afebrile with no reports of chest pain or shortness of breath. No reported nausea or vomiting noted and patient is tolerating diet. Review of systems: Constitutional: No reports of fatigue, fever, or chills Cardiovascular: No reports of chest pain or palpitations Respiratory: No reports of shortness of breath or cough GI: reports of occasional nausea, no vomiting, or diarrhea : No reports of dysuria or retention Neurovascular: reports of generalized weakness with continued dizziness All medications have been reviewed PHYSICAL EXAMINATION: GENERAL: The patient is alert and oriented x3, Thin built, elderly appearing HEENT: Pupils are round and equally reacting to light. EOMI. No scleral icterus. No conjunctival pallor. Normocephalic, atraumatic. No pharyngeal erythema. No thyromegaly. CARDIOVASCULAR: S1 and S2 muffled PULMONARY: Chest is clear to auscultation, no wheezing or crackles. ABDOMEN: Soft, nontender, nondistended, normoactive bowel sounds. No palpable organomegaly. MUSCULOSKELETAL: No joint swelling or deformity. EXTREMITIES: No cyanosis, clubbing, or pedal edema. NEUROLOGICAL: Gross neurological examination did not reveal any focal deficits. Diffusely weak SKIN: No rashes. Assessment: -Intractable vertigo: Was believed to have peripheral vertigo most probably benign positional vertigo or labyrinthitis -acute/subacute left thalamus stroke as noted on MRI of the brain -Left artery occlusion as noted on MRA -Depression history -generalized weakness due to deconditioning -Chronic kidney disease stage IV, possible mild acute renal failure, most recent baseline was 2.1 -Coronary artery disease -COPD, not in exacerbation -diabetes mellitus type 2 history -Hypertension -Sleep apnea -History of SVT in the past -History of CVA/TIA -DVT prophylaxis: Subcutaneous heparin -GI prophylaxis -Full code Plan: Recommend continue with current medications and regimen with multiple medical consultations following. MRI consistent with acute infarct the left thalamus and neurology recommending MARLENE and was evaluated by cardiology with no plans for MARLENE at this time. Vascular surgery evaluated the patient recommending outpatient follow-up as well as ENT consultation in the outpatient setting Kidney function is elevated with chronic kidney disease and nephrology following maintained on bicarb, creatinine slightly improved at 2.2 today will continue bicarb another day and follow-up labs Recommend follow-up labs in the a.m. Most likely will need vestibular rehab outpatient Recommend monitor Accu-Cheks before meals and at bedtime we'll use current regimen Recommend PT/OT therapy evaluation and daily and patient continues to refuse rehab Due to multiple complex medical issues, prognosis is guarded Probable discharge in the next 24 hours The impression and plan of care has been dictated by Princess Hanna, Nurse Practitioner as directed. Dr. Gianni MD I have performed a history and examination and MDM of this patient, discussed the same with the dictator, and agree with the dictator's assessment and plan as written ,documented as a scribe. Based on total visit time, I have performed more than 50% of the visit. Objective - Vital Signs Vital signs: Vital Signs Temp 97.6 F 09/03/22 08:43 Pulse 66 09/03/22 08:43 Resp 18 09/03/22 08:43 BP 128/66 09/03/22 08:43 Pulse Ox 99 09/03/22 08:43 FiO2 Intake & Output 09/02/22 09/03/22 09/03/22 18:59 06:59 18:59 Intake Total 298 Output Total 575 200 Balance -277 -200 Intake: Oral 298 Output: Urine 575 200 Other: Voiding Method Urinal Urinal # Voids 3 # Bowel Movements 2 1 - Labs CBC & Chem 7: 09/02/22 06:07 09/03/22 08:08 Labs: Abnormal Lab Results - Last 24 Hours (Table) 09/02/22 09/02/22 09/02/22 Range/Units 12:03 17:26 20:23 Sodium (137-145) mmol/L BUN (9-20) mg/dL Creatinine (0.66-1.25) mg/dL Glucose (74-99) mg/dL POC Glucose (mg/dL) 210 H 125 H 236 H (70-110) mg/dL Calcium (8.4-10.2) mg/dL 09/03/22 09/03/22 Range/Units 06:26 08:08 Sodium 135 L (137-145) mmol/L BUN 32 H (9-20) mg/dL Creatinine 2.24 H (0.66-1.25) mg/dL Glucose 117 H (74-99) mg/dL POC Glucose (mg/dL) 115 H (70-110) mg/dL Calcium 8.1 L (8.4-10.2) mg/dL
--- NOTE | 2022-09-03 15:18 | P.PN ---
Subjective Progress Note Date: 09/03/22 Patient initially seen by Dr. Cordova, then followed up by Dr. Valdez. Please refer to their notes for details. Patient is a 66-year-old male with recent stroke over the left thalamus and right insular region. MARLENE was recommended by Dr. Valdez. Cardiology on board but they do not recommend MARLENE at this time. Patient does have left common carotid artery occlusion but that would not explain bilateral ischemic strokes. Patient currently on Brilinta and aspirin. Patient complaining of feeling dizziness which he describes as spinning. Patient continues to smoke 4 cigarello (small cigars) per day. Patient was recently seen by myself in hospital consultation in June 2022 for syncopal spells. Patient had multiple vascular risk factors. He was recommended to take aspirin and Plavix daily. Patient states that he was compliant with his medication. He came to the hospital because of uncontrolled blood pressure and dizziness. MRI of the brain revealed 2 areas of acute to subacute infarction. Objective - Vital Signs Vital signs: Vital Signs Temp 98.6 F 09/03/22 14:00 Pulse 77 09/03/22 14:00 Resp 18 09/03/22 14:00 BP 175/75 09/03/22 14:00 Pulse Ox 97 09/03/22 14:00 FiO2 Intake & Output 09/02/22 09/03/22 09/03/22 18:59 06:59 18:59 Intake Total 298 Output Total 715 896 7661 Balance -277 -200 -1000 Intake: Oral 298 Output: Urine 482 123 2092 Other: Voiding Method Urinal Urinal # Voids 3 # Bowel Movements 2 1 - Exam Patient's mental status, speech and language functions are normal. Cranial nerves are all normal. Visual clark are full, face is symmetric and tongue protrudes the midline. On muscle strength testing there is no pronator drift. The strength is normal in the upper limbs except left deltoid 5-. In the lower limbs ankle dorsiflexion normal. Hip flexion 4+ 5-right, 5 left. Sensory to touch is equal with no neglect No ataxia for [id number] testing. - Labs CBC & Chem 7: 09/02/22 06:07 09/03/22 08:08 Labs: Abnormal Lab Results - Last 24 Hours (Table) 09/02/22 09/02/22 09/03/22 Range/Units 17:26 20:23 06:26 Sodium (137-145) mmol/L BUN (9-20) mg/dL Creatinine (0.66-1.25) mg/dL Glucose (74-99) mg/dL POC Glucose (mg/dL) 125 H 236 H 115 H (70-110) mg/dL Calcium (8.4-10.2) mg/dL 09/03/22 09/03/22 Range/Units 08:08 12:48 Sodium 135 L (137-145) mmol/L BUN 32 H (9-20) mg/dL Creatinine 2.24 H (0.66-1.25) mg/dL Glucose 117 H (74-99) mg/dL POC Glucose (mg/dL) 135 H (70-110) mg/dL Calcium 8.1 L (8.4-10.2) mg/dL Assessment and Plan Assessment: 1. Continued, recurrent dizziness and ataxia due to acute/subacute left thalamus and right insular cortex stroke. Unsure exact etiology. Seems embolic in nature/possible cardioembolic. I would expect left common carotid to give one hemispheric stroke but not shower to bilateral side. 2. Left common carotid artery occlusion on MRA and carotid duplex 3. History of stroke in 2013 4. History of hypertension 5. History of hyperlipidemia 6. History of coronary artery disease 7. End-stage renal disease 8. History of diabetes mellitus Plan: 1.MRI of the brain: It is reported as acute/subacute CVA with scattered foci of restricted diffusion seen in bilateral cerebellar hemisphere, left thalamus and the right insular cortex white matter. More remote appearing injury of the right basal ganglia and right darling radiata. Correlate for embolic phenomena. Nonspecific white matter changes likely secondary due to small vessel ischemic disease. There is bilateral mastoid air cell diffusion. I personally reviewed the MRI and I only felt the patient had restricted diffusion over the left thalamus and right insular cortex and not cerebellar. Dr. Valdez has spoken to reading radiologist Dr. Palacios and he agrees and placed an addendum. MRA head and neck is reported as dispenses occlusion on left common carotid artery with reconstitution of the left carotid system at the internal carotid artery and then mid neck. Findings similar to ultrasound carotid on 07/15/2022. There is motion artifact which limits evaluation of the inferior, carotid s ystem which could probably better evaluated with a CTA. Diminutive and/or absent left vertebral artery system which appears to reconstitute at the level of C3-C4. This can be further evaluated the CT and neck given the motion limits resolution. 2. He is on ASA 81mg daily and Plavix 75mg daily which was his home medication so since he failed Plavix, Dr. Valdez stop Plavix and started him on Brilinta 90mg 1 tab bid. Also on Lipitor 80mg qhs. For lipid panel, triglycerides 168, cholesterol 150, LDL 77 and HDL 39. 3. Neuro check 4. Cardiac monitoring. Recommend event monitor for 30days. Cardiology do not recommend MARLENE at this time. 5. 2D echo: Reported as normal left ventricle systolic function. No evidence of intracranial shunt by contrast/bubble study or the color Doppler. Left atrium is severely increased in volume. Mildly increased left atrial area. Interatrial septal aneurysm. 6. Physical therapy for balance training 7. Vascular surgery is consulted for carotid occlusion. Carotid duplex: Reported as occlusion left common carotid artery there is reconstitution in the internal carotid artery on the left. Less than 50% stenosis on the right. Per vascular no intervention on carotid. 8. Will defer the rest of medical management to primary team. 9. For DVT prophylaxis: on subq heparin. Recommend the patient to follow-up with neurologist as outpatien within 1-2 weeks. Neurologically clear.
[2022-09-03] MEDS: CYANOCOBALAMIN 500 MCG TAB PO SCH (16:08)
[2022-09-03] MEDS: FOLIC ACID 1 MG TAB PO SCH (16:08)
[2022-09-03 17:34] LABS: Glucose,Whole Blood 109 mg/dL (70-110)
--- NOTE | 2022-09-03 19:03 | P.PN ---
Subjective Patient is seen for follow-up for chronic kidney disease. He was admitted with severe dizziness and vertigo and diagnosed to have acute cerebellar CVA on MRI. Renal function is fairly stable. Blood pressure was uncontrolled but much improved, hydralazine has been increased. No significant complaints today except for dizziness Objective - Vital Signs Vital signs: Vital Signs Temp 98.6 F 09/03/22 14:00 Pulse 77 09/03/22 14:00 Resp 18 09/03/22 14:00 BP 175/75 09/03/22 14:00 Pulse Ox 97 09/03/22 14:00 FiO2 Intake & Output 09/02/22 09/03/22 09/03/22 18:59 06:59 18:59 Intake Total 298 Output Total 025 240 7485 Balance -277 -200 -1000 Intake: Oral 298 Output: Urine 423 155 7673 Other: Voiding Method Urinal Urinal # Voids 3 # Bowel Movements 2 1 - Exam Patient is awake, comfortable, no acute distress Examination of the heart S1 and S2 Examination of the lungs bilateral breath sounds are heard Abdomen is soft nontender Examination of the lower extremities shows no significant edema No obvious motor deficits noted. - Labs CBC & Chem 7: 09/02/22 06:07 09/03/22 08:08 Labs: Abnormal Lab Results - Last 24 Hours (Table) 09/02/22 09/03/22 09/03/22 Range/Units 20:23 06:26 08:08 Sodium 135 L (137-145) mmol/L BUN 32 H (9-20) mg/dL Creatinine 2.24 H (0.66-1.25) mg/dL Glucose 117 H (74-99) mg/dL POC Glucose (mg/dL) 236 H 115 H (70-110) mg/dL Calcium 8.1 L (8.4-10.2) mg/dL 09/03/22 Range/Units 12:48 Sodium (137-145) mmol/L BUN (9-20) mg/dL Creatinine (0.66-1.25) mg/dL Glucose (74-99) mg/dL POC Glucose (mg/dL) 135 H (70-110) mg/dL Calcium (8.4-10.2) mg/dL Assessment and Plan Assessment: 1. Chronic kidney disease NKF stage IIIB to 4 with baseline creatinine around 2 mg/dL. Etiology is diabetic kidney disease with about 3 g of proteinuria in 2 018. Urine protein creatinine ratio was 5.8 on 07/11/2022. Patient is maintained on farxiga. Sabas inhibitors was discontinued last hospitalization in June due to hyperkalemia. 2. Acute cerebellar CVA being followed by neurology. Symptoms of severe dizziness/vertigo. 3. Hypertension uncontrolled, hydralazine does has been increased. Continue off of SABAS inhibitor's due to persistent hyperkalemia. 4. Hyperkalemia associated with advanced CK D. Currently off of SABAS inhibitor's. Underlying metabolic acidosis also contributing to the hyperkalemia. Patient will be maintained on low potassium diet. Low-dose loop diuretics will be beneficial as well. Rule out urine retention 5. Non-gap metabolic acidosis secondary to advanced chronic kidney disease maintained on sodium bicarb. Add IV bicarb for about 24 hours Plan: Need to be careful with ARBs due to significant h/o hyperkalemia previously and on this admission even without SABAS/I Increase hydralazine. D/c IV bicarb Repeat labs in am.
[2022-09-03 21:09] LABS: Glucose,Whole Blood 198 mg/dL (70-110)
[2022-09-03] MEDS: ATORVASTATIN 80 MG TAB PO SCH (21:13)
[2022-09-03] MEDS: DAPAGLIFLOZIN PROPANEDIOL 5 MG TABLET PO SCH (21:13)
[2022-09-03] MEDS: DONEPEZIL 5 MG TAB PO SCH (21:13)
[2022-09-03] MEDS: ASPIRIN 81 MG PO SCH (21:13)
[2022-09-03] MEDS: allopurinoL 100 MG TAB PO SCH (21:13)
[2022-09-03] MEDS: EZETIMIBE 10 MG TAB PO SCH (21:14)
[2022-09-03] MEDS: PRAZOSIN 1 MG CAP PO SCH (21:14)
[2022-09-03] MEDS: SERTRALINE 50 MG TAB PO SCH (21:14)
[2022-09-03] MEDS: FENOFIBRATE 160 MG TAB PO SCH (21:14)
[2022-09-03 22:15] VITALS: RESP 16
[2022-09-04 06:08] LABS: Glucose,Whole Blood 157 mg/dL (70-110)
[2022-09-04] MEDS: INSULIN ASPART (NovoLOG) 100 UNIT/ML VIAL SQ SCH ×2 (06:12→13:09)
[2022-09-04] MEDS: carvediloL 12.5 MG TAB PO SCH (06:34)
[2022-09-04] MEDS: FOLIC ACID 1 MG TAB PO SCH (08:38)
[2022-09-04] MEDS: CYANOCOBALAMIN 500 MCG TAB PO SCH (08:39)
[2022-09-04] MEDS: amLODIPine 10 MG TAB PO SCH (08:39)
[2022-09-04] MEDS: HEPARIN SODIUM,PORCINE/PF 5,000 UNIT/0.5 ML SYRINGE SQ SCH (08:39)
[2022-09-04] MEDS: LOSARTAN 25 MG TAB PO SCH (08:39)
[2022-09-04] MEDS: ARIPiprazole 5 MG TAB PO SCH (08:40)
[2022-09-04] MEDS: hydrALAZINE HCL 50 MG TAB PO SCH (08:40)
[2022-09-04] MEDS: SODIUM BICARBONATE TAB 650 MG TAB PO SCH (08:40)
[2022-09-04] MEDS: TICAGRELOR 90 MG TAB PO SCH (08:41)
[2022-09-04 11:08] LABS: African American GFR (CKD) 29 (>60 ml/min/1.73 sqM); Anion Gap 6 mmol/L; Blood Urea Nitrogen 42 mg/dL (9-20); Calcium 8.1 mg/dL (8.4-10.2); Carbon Dioxide 26 mmol/L (22-30); Chloride 102 mmol/L (98-107); Glucose 215 mg/dL (74-99); Non-African American GFR(CKD) 26 (>60 ml/min/1.73 sqM); Potassium 4.3 mmol/L (3.5-5.1); Sodium 134 mmol/L (137-145)
--- NOTE | 2022-09-04 11:52 | P.PN ---
Subjective HISTORY OF PRESENT ILLNESS: This is a 66-year-old male with a past medical history significant for CVA in 2013 with residual right-sided weakness, hypertension, hyperlipidemia, peripheral vascular disease, diabetes, coronary artery disease with previous four-vessel CABG in 2017, nicotine dependence. Patient follows in the office with Dr. Cowan. We have been asked to see the patient in consultation for carotid stenosis and possible MARLENE. Patient examined at the bedside. Patient presented to the hospital for dizziness and elevated blood pressure. The patient denies having any chest pain or pressure. He denies any shortness of breath. He reports having weakness in his right leg which is residual from his CVA in 2013. He denies any episodes of syncope. The patient states he has been dealing with symptoms of vertigo and was supposed to follow up with an ENT but he has not done this yet. * EKG reveals sinus mechanism with inferior lateral T-wave inversions * Laboratory data: WBC 8.6. Hemoglobin 11.0. Platelet count 191. Sodium 135. Potassium 4.3. BUN 32. Creatinine 2.24. * Current home cardiac medications include hydralazine 25 mg 3 times a day as needed, carvedilol 10 mg daily, Plavix 75 mg daily, Lipitor 80 mg at night, aspirin 81 mg daily, Zetia 10 mg at night, amlodipine 10 mg daily * Echocardiogram completed revealing ejection fraction 55-60%, negative bubble study, [id number] MR, and mild TR * Patient underwent MRA of the head and neck revealing suspected occlusion of the left common carotid artery with reconstitution of the left carotid system at the internal carotid artery in the mid neck. Findings are similar to ultrasound carotid performed in June 2022. There is some motion which limited evaluation of the inferior common carotid system which could probably be better evaluated with CT of the neck. Diminutive and/or absent left vertebral artery system which appears to reconstitute at the level of C3C4. * MRI of the brain: Acute/subacute CVA with scattered foci of restricted diffusion seen in the bilateral cerebellar hemispheres, left thalamus, and right insular cortex white matter. More remote-appearing injury of the right basal ganglia and right cornea radio. Nonspecific white matter changes. * Carotid Doppler occlusion of the left, carotid artery there is reconstitution within the internal carotid artery and the left. Less than 50% stenosis of the right carotid bifurcation * Patient underwent 4 vessel CABG in August 2016 with OJEDA to LAD, VGPDA, VG-OM2, VG-OM3 09/04/2022 Patient examined this morning at the bedside. Patient continues to report dizziness. He denies chest pain or pressure. He denies shortness of breath. Vital signs are stable. PHYSICAL EXAM: VITAL SIGNS: Reviewed. GENERAL: Well-developed in no acute distress. HEENT: Head is normocephalic. Pupils are equal, round. Sclerae anicteric. Mucous membranes of the mouth are moist. Neck supple. No JVD or thyromegaly LUNGS: Respirations even and unlabored. Lungs essentially clear to auscultation bilaterally. HEART: Regular rate and rhythm. S1 and S2 heard. ABDOMEN: Soft. Nondistended. Nontender. EXTREMITIES: Normal range of motion. No clubbing or cyanosis. Peripheral pulses intact. No lower extremity edema NEUROLOGIC: Awake and alert. Oriented x 3. ASSESSMENT: Vertigo Hypertensive emergency on admission, improving Coronary artery disease with previous four-vessel CABG in 2017 History of CVA, 2013, with residual right-sided weakness Chronic kidney disease Left common carotid artery occlusion, diminutive left vertebral artery system Acute/subacute CVA with scattered foci and bilateral cerebral hemispheres, left thalamus, and right insular cortex white matter Hyperlipidemia COPD Diabetes Peripheral vascular disease PLAN: Continue current cardiac medications Losartan 25 mg added yesterday for optimal blood pressure control as patient has stable CKD and also history of diabetes Patient instructed that he needs better blood pressure control Case discussed with neurology, Dr. Navarro who would like MARLENE performed. Patient already ate breakfast this morning. MARLENE not urgent to hold patient over the weekend. He may be discharged home from a cardiac standpoint and will be set up for outpatient MARLENE. Patient has had event monitor placed this morning Patient is stable for discharge home today from a cardiac standpoint Nurse practitioner note has been reviewed by physician. Signing provider agrees with the documented findings, assessment, and plan of care. Objective - Vital Signs Vital signs: Vital Signs Temp 98.1 F 09/04/22 08:00 Pulse 72 09/04/22 08:00 Resp 16 09/04/22 08:00 BP 126/69 09/04/22 08:00 Pulse Ox 98 09/04/22 08:00 FiO2 Intake & Output 09/03/22 09/04/22 09/04/22 18:59 06:59 18:59 Output Total 1000 800 300 Balance -1000 -800 -300 Output: Urine 1000 800 300 Other: Voiding Method Urinal Urinal # Voids 1 # Bowel Movements 1 - Labs CBC & Chem 7: 09/02/22 06:07 09/04/22 10:21 Labs: Abnormal Lab Results - Last 24 Hours (Table) 09/03/22 09/03/22 09/04/22 Range/Units 12:48 21:06 06:07 Sodium (137-145) mmol/L BUN (9-20) mg/dL Creatinine (0.66-1.25) mg/dL Glucose (74-99) mg/dL POC Glucose (mg/dL) 135 H 198 H 157 H (70-110) mg/dL Calcium (8.4-10.2) mg/dL 09/04/22 Range/Units 10:21 Sodium 134 L (137-145) mmol/L BUN 42 H (9-20) mg/dL Creatinine 2.50 H (0.66-1.25) mg/dL Glucose 215 H (74-99) mg/dL POC Glucose (mg/dL) (70-110) mg/dL Calcium 8.1 L (8.4-10.2) mg/dL
--- NOTE | 2022-09-04 12:11 | P.PN ---
Subjective Patient is seen for follow-up for chronic kidney disease. He was admitted with severe dizziness and vertigo and diagnosed to have acute cerebellar CVA on MRI. Renal function is fairly stable. Blood pressure was uncontrolled but much improved, hydralazine has been increased. No significant complaints today except for dizziness Objective - Vital Signs Vital signs: Vital Signs Temp 98.1 F 09/04/22 08:00 Pulse 72 09/04/22 08:00 Resp 16 09/04/22 08:00 BP 126/69 09/04/22 08:00 Pulse Ox 98 09/04/22 08:00 FiO2 Intake & Output 09/03/22 09/04/22 09/04/22 18:59 06:59 18:59 Intake Total 118 Output Total 1000 800 300 Balance -1000 -800 -182 Intake: Oral 118 Output: Urine 1000 800 300 Other: Voiding Method Urinal Urinal # Voids 1 # Bowel Movements 1 - Exam Patient is awake, comfortable, no acute distress Examination of the heart S1 and S2 Examination of the lungs bilateral breath sounds are heard Abdomen is soft nontender Examination of the lower extremities shows no significant edema No obvious motor deficits noted. - Labs CBC & Chem 7: 09/02/22 06:07 09/04/22 10:21 Labs: Abnormal Lab Results - Last 24 Hours (Table) 09/03/22 09/03/22 09/04/22 Range/Units 12:48 21:06 06:07 Sodium (137-145) mmol/L BUN (9-20) mg/dL Creatinine (0.66-1.25) mg/dL Glucose (74-99) mg/dL POC Glucose (mg/dL) 135 H 198 H 157 H (70-110) mg/dL Calcium (8.4-10.2) mg/dL 09/04/22 Range/Units 10:21 Sodium 134 L (137-145) mmol/L BUN 42 H (9-20) mg/dL Creatinine 2.50 H (0.66-1.25) mg/dL Glucose 215 H (74-99) mg/dL POC Glucose (mg/dL) (70-110) mg/dL Calcium 8.1 L (8.4-10.2) mg/dL Assessment and Plan Assessment: 1. Chronic kidney disease NKF stage IIIB to 4 with baseline creatinine around 2 mg/dL. Etiology is diabetic kidney disease with about 3 g of proteinuria in . Urine protein creatinine ratio was 5.8 on 07/11/2022. Patient is maintained on farxiga. Sabas inhibitors was discontinued last hospitalization in June due to hyperkalemia. 2. Acute cerebellar CVA being followed by neurology. Symptoms of severe dizziness/vertigo. 3. Hypertension uncontrolled, hydralazine does has been increased. Continue off of SABAS inhibitor's due to persistent hyperkalemia. 4. Hyperkalemia associated with advanced CK D. Currently off of SABAS inhibitor's. Underlying metabolic acidosis also contributing to the hyperkalemia. Patient will be maintained on low potassium diet. Low-dose loop diuretics will be beneficial as well. Rule out urine retention 5. Non-gap metabolic acidosis secondary to advanced chronic kidney disease maintained on sodium bicarb. Add IV bicarb for about 24 hours Plan: Need to be careful with ARBs due to significant h/o hyperkalemia previously and on this admission even without SABAS/I. Recommend to discontinue Continue with increased dose of hydralazine Follow-up as outpatient
[2022-09-04 12:16] LABS: Glucose,Whole Blood 151 mg/dL (70-110)
[2022-09-04 15:36] VITALS: BP 156/66; PULSE 71; TEMP 98
[2022-09-04] MEDS: DEXTROSE 5% IN WATER 1,000 ML with SODIUM BICARB (1 MEQ/ML) 100 ML IV SCH (15:40)
--- NOTE | 2022-09-06 13:42 | P.PN ---
Subjective Progress Note Date: 09/04/22 09/04/2022: Patient was seen for a follow-up. Patient is laying comfortably in the bed. Patient's was also present today. 09/03/2022: Patient initially seen by Dr. Cordova, then followed up by Dr. Valdez. Please refer to their notes for details. Patient is a 66-year-old male with recent stroke over the left thalamus and right insular region. MARLENE was recommended by Dr. Valdez. Cardiology on board but they do not recommend MARLENE at this time. Patient does have left common carotid artery occlusion but that would not explain bilateral ischemic strokes. Patient currently on Brilinta and aspirin. Patient complaining of feeling dizziness which he describes as spinning. Patient continues to smoke 4 cigarello (small cigars) per day. Patient was recently seen by myself in hospital consultation in June 2022 for syncopal spells. Patient had multiple vascular risk factors. He was recommended to take aspirin and Plavix daily. Patient states that he was compliant with his medication. He came to the hospital because of uncontrolled blood pressure and dizziness. MRI of the brain revealed 2 areas of acute to subacute infarction. Objective - Vital Signs Vital signs: Vital Signs Temp 98.1 F 09/04/22 08:00 Pulse 72 09/04/22 08:00 Resp 16 09/04/22 08:00 BP 126/69 09/04/22 08:00 Pulse Ox 98 09/04/22 08:00 FiO2 Intake & Output 09/03/22 09/04/22 09/04/22 18:59 06:59 18:59 Intake Total 118 Output Total 1000 800 300 Balance -1000 -800 -182 Intake: Oral 118 Output: Urine 1000 800 300 Other: Voiding Method Urinal Urinal # Voids 1 # Bowel Movements 1 - Exam Patient's mental status, speech and language functions are normal. Cranial nerves are all normal. Visual clark are full, face is symmetric and tongue protrudes the midline. On muscle strength testing there is no pronator drift. The strength is normal in the upper limbs except left deltoid 5-. In the lower limbs ankle dorsiflexion normal. Hip flexion 4+ 5-right, 5 left. Sensory to touch is equal with no neglect No ataxia for [id number] testing. - Labs CBC & Chem 7: 09/02/22 06:07 09/04/22 10:21 Labs: Abnormal Lab Results - Last 24 Hours (Table) 09/03/22 09/03/22 09/04/22 Range/Units 12:48 21:06 06:07 Sodium (137-145) mmol/L BUN (9-20) mg/dL Creatinine (0.66-1.25) mg/dL Glucose (74-99) mg/dL POC Glucose (mg/dL) 135 H 198 H 157 H (70-110) mg/dL Calcium (8.4-10.2) mg/dL 09/04/22 09/04/22 Range/Units 10:21 12:14 Sodium 134 L (137-145) mmol/L BUN 42 H (9-20) mg/dL Creatinine 2.50 H (0.66-1.25) mg/dL Glucose 215 H (74-99) mg/dL POC Glucose (mg/dL) 151 H (70-110) mg/dL Calcium 8.1 L (8.4-10.2) mg/dL Assessment and Plan Assessment: 1. Continued, recurrent dizziness and ataxia due to acute/subacute left thalamus and right insular cortex stroke. Unsure exact etiology. Seems embolic in nature/possible cardioembolic. I would expect left common carotid to give one hemispheric stroke but not to bilateral side. 2. Left common carotid artery occlusion on MRA and carotid duplex 3. History of stroke in 2013 4. History of hypertension 5. History of hyperlipidemia 6. History of coronary artery disease 7. End-stage renal disease 8. History of diabetes mellitus Plan: 1.MRI of the brain: It is reported as acute/subacute CVA with scattered foci of restricted diffusion seen in bilateral cerebellar hemisphere, left thalamus and the right insular cortex white matter. More remote appearing injury of the right basal ganglia and right darling radiata. Correlate for embolic phenomena. Nonspecific white matter changes likely secondary due to small vessel ischemic disease. There is bilateral mastoid air cell diffusion. I personally reviewed the MRI and I only felt the patient had restricted diffusion over the left th alamus and right insular cortex and not cerebellar. Dr. Valdez has spoken to reading radiologist Dr. Palacios and he agrees and placed an addendum. MRA head and neck is reported as suspected occlusion of left common carotid artery with reconstitution of the left carotid system at the internal carotid artery in the mid neck. Findings similar to ultrasound carotid on 07/15/2022. There is motion artifact which limits evaluation of the inferior, carotid system which could probably better evaluated with a CTA. Diminutive and/or absent left vertebral artery system which appears to reconstitute at the level of C3-C4. This can be further evaluated the CT and neck given the motion limits resolut ion. 2. He is on ASA 81mg daily and Plavix 75mg daily which was his home medication so since he failed Plavix, Dr. Valdez stopped Plavix and started him on Brilinta 90mg 1 tab bid. 3. Lipid panel showed triglycerides 168, cholesterol 150, LDL 77 and HDL 39. Continue Lipitor 80 mg daily. 4. Cardiac monitoring. Recommend event monitor for 30days. 5. 2D echo: Reported as normal left ventricle systolic function. No evidence of intracranial shunt by contrast/bubble study or the color Doppler. Left atrium is severely increased in volume. Mildly increased left atrial area. Interatrial septal aneurysm. Recommend MARLENE. Discussed with Dr. Terry. Unfortunately patient already has taken breakfast this morning. Dr. Terry recommending to schedule MARLENE outpatient in the very near future. 6. Physical therapy for balance training 7. Vascular surgery is consulted for carotid occlusion. Carotid duplex: Reported as occlusion left common carotid artery there is reconstitution in the internal carotid artery on the left. Less than 50% stenosis on the right. Per vascular no intervention on carotid. 8. Will defer the rest of medical management to primary team. 9. For DVT prophylaxis: on subq heparin. Recommend the patient to follow-up with neurologist as outpatien within 1-2 weeks. Neurologically clear.
--- NOTE | 2022-09-07 15:19 | P.DS ---
Providers Date of admission: 08/31/22 10:14 Expected date of discharge: 09/04/22 Attending physician: Omar Escobedo Consults: 08/30/22 10:07 Consult Physician Routine Consulting Provider: Carrillo Valdez Consult Reason/Comments: Intractable vertigo Do you want consulting provider notified?: Yes 09/01/22 08:58 Consult Physician Urgent Consulting Provider: Alina Montenegro Consult Reason/Comments: latanya Do you want consulting provider notified?: Yes 09/01/22 10:06 Consult Physician Urgent Consulting Provider: Yariel Cr Consult Reason/Comments: left carotid occlusion Do you want consulting provider notified?: Yes 09/02/22 16:04 Consult Physician Urgent Consulting Provider: Enrique Villa Consult Reason/Comments: cva, carotid stenosis, symptomatic, ?? phyllis Do you want consulting provider notified?: Yes [facility] [place] [facility] Course: Final diagnosis -Intractable vertigo: Was believed to have peripheral vertigo most probably benign positional vertigo or labyrinthitis -acute/subacute left thalamus stroke as noted on MRI of the brain -Left artery occlusion as noted on MRA -Depression history -generalized weakness due to deconditioning -Chronic kidney disease stage IV, possible mild acute renal failure, most recent baseline was 2.1 -Coronary artery disease -COPD, not in exacerbation -diabetes mellitus type 2 history -Hypertension -Sleep apnea -History of SVT in the past -History of CVA/TIA -DVT prophylaxis: Subcutaneous heparin -GI prophylaxis -Full code Discharge disposition Patient is being discharged in a stable condition with guarded prognosis to home with home care. Patient will follow-up with Dr. Hidalgo in the outpatient setting upon discharge. Patient is to follow-up closely with neurology, nephrology, ENT in the outpatient setting as scheduled. Total time taken is greater than 35 minutes. Hospital course This is a 66-year-old male who was recently admitted with dizziness and vertigo and being closely monitored. Multiple medical consultations following including nephrology and neurology underwent MRI of the brain which showed an acute subacute left thalamus stroke while on aspirin and Plavix and being transitioned to aspirin and brilinta and has been cleared by consultations for close outpatient follow-up. Patient also needs ENT consultation in the outpatient setting for discontinued dizziness most likely BPPV. Patient continue on sodium chloride tablets with close outpatient follow-up of labs in the next few days and nephrology in 1-2 weeks. Patient will be going home with home care and subacute rehab was suggested although patient refused as patient continues with significant weakness. Please refer to other consultation notes for further HPI. Currently no reports of chest pain, shortness of breath, or palpitations. Patient is afebrile. No reports of nausea or vomiting and patient is tolerating diet. Patient will be discharged home today. Guarded prognosis and high risk for readmissions due to noncompliance with medications and significant comorbidities. Physical exam: Gen: This is a 66-year-old male who is awake, alert and oriented 3, thin built, elderly appearing HEENT: Head is atraumatic, normocephalic. Pupils equal, round. Sclerae is anicteric. NECK: Supple. No JVD. No lymphadenopathy. No thyromegaly. LUNGS: Clear to auscultation. No wheezes or rhonchi. No intercostal retractions. HEART: Regular rate and rhythm. No murmur. ABDOMEN: Soft. Bowel sounds are present. No masses. No tenderness. EXTREMITIES: No pedal edema. No calf tenderness. NEUROLOGICAL: Patient is awake, alert and oriented x3. Cranial nerves 2 through 12 are grossly intact. Diffusely weak Please refer to medication reconciliation sheet for a list of medications. The impression and plan of care has been dictated by Princess Hanna, Nurse Practitioner as directed. Dr. Henrry MD I have performed a history and examination and MDM of this patient, discussed the same with the dictator, and agree with the dictator's assessment and plan as written ,documented as a scribe. Based on total visit time, I have performed more than 50% of the visit. Patient Condition at Discharge: Stable Plan - Discharge Summary New Discharge Prescriptions: New carvediloL [Coreg*] 25 mg PO BID-W/MEALS #60 tab Folic Acid 0.5 mg PO DAILY #15 tab hydrALAZINE HCL [Apresoline] 50 mg PO TID #90 tab Ticagrelor [Brilinta] 90 mg PO BID 30 Days #60 tab Sodium Bicarbonate Tab 650 mg PO TID #90 tab Cyanocobalamin [Vitamin B-12] 500 mcg PO DAILY #30 tab Continue Aspirin [Adult Low Dose Aspirin EC] 81 mg PO HS allopurinoL [Zyloprim] 100 mg PO HS Fenofibrate Nanocrystallized [Fenofibrate] 145 mg PO HS Ezetimibe [Zetia] 10 mg PO HS Atorvastatin [Lipitor] 80 mg PO HS Dapagliflozin Propanediol [Farxiga] 5 mg PO HS Ergocalciferol (Vitamin D2) [Drisdol (50,000 Iu)] 1,250 mcg PO MOTH amLODIPine [Norvasc] 10 mg PO DAILY #0 Meclizine [Antivert] 12.5 mg PO TID PRN PRN Reason: Vertigo ARIPiprazole [Abilify] 5 mg PO DAILY Prazosin HCl 2 mg PO HS Sertraline [Zoloft] 50 mg PO HS Donepezil [Aricept] 5 mg PO HS Discontinued carvediloL phosphate [Carvedilol ER] 10 mg PO DAILY Clopidogrel [Plavix] 75 mg PO DAILY #30 tablet hydrALAZINE HCL [Apresoline] 25 mg PO TID PRN PRN Reason: BP OVER 150/88 Discharge Medication List Aspirin [Adult Low Dose Aspirin EC] 81 mg PO HS 01/26/17 [History] Fenofibrate Nanocrystallized [Fenofibrate] 145 mg PO HS 09/01/18 [History] allopurinoL [Zyloprim] 100 mg PO HS 09/01/18 [History] Atorvastatin [Lipitor] 80 mg PO HS 05/16/21 [History] Ezetimibe [Zetia] 10 mg PO HS 05/16/21 [History] Dapagliflozin Propanediol [Farxiga] 5 mg PO HS 07/10/22 [History] Ergocalciferol (Vitamin D2) [Drisdol (50,000 Iu)] 1,250 mcg PO MOTH 07/10/22 [History] Prazosin HCl 2 mg PO HS 07/10/22 [History] Sertraline [Zoloft] 50 mg PO HS 07/10/22 [History] amLODIPine [Norvasc] 10 mg PO DAILY #0 07/15/22 [Rx] ARIPiprazole [Abilify] 5 mg PO DAILY 08/29/22 [History] Donepezil [Aricept] 5 mg PO HS 08/29/22 [History] Meclizine [Antivert] 12.5 mg PO TID PRN 08/29/22 [History] Cyanocobalamin [Vitamin B-12] 500 mcg PO DAILY #30 tab 09/04/22 [Rx] Folic Acid 0.5 mg PO DAILY #15 tab 09/04/22 [Rx] Sodium Bicarbonate Tab 650 mg PO TID #90 tab 09/04/22 [Rx] Ticagrelor [Brilinta] 90 mg PO BID 30 Days #60 tab 09/04/22 [Rx] carvediloL [Coreg*] 25 mg PO BID-W/MEALS #60 tab 09/04/22 [Rx] hydrALAZINE HCL [Apresoline] 50 mg PO TID #90 tab 09/04/22 [Rx] Follow up Appointment(s)/Referral(s): Alina Montenegro MD [STAFF PHYSICIAN] - 1 Week Anup Cowan MD [STAFF PHYSICIAN] - 1 Week (Office will call with appointment time and date.) Laz Melgoza DO [Doctor of Osteopathic Medicine] - 11/17/22 12:45 pm (Arrive half hour early to fill out paperwork) Gurvinder Ruiz DO [Doctor of Osteopathic Medicine] - 2 Weeks Ashok Hidalgo MD [Primary Care Provider] - 1-2 days Ji Hannah MD [Medical Doctor] - 1 Week [facility] Visiting Nurse, [NON-STAFF] - 1 Week Ambulatory/Diagnostic Orders: Basic Metabolic Panel [LAB.AMB] Time Frame: 3 Days, Location: None Selected Patient Instructions/Handouts: How to Stop Smoking (DC), Vertigo (DC), Cigarette Smoking and Your Health (GEN), Hypertension (DC) Activity/Diet/Wound Care/Special Instructions: Activity Limited until follow-up Follow-up with primary care provider on discharge follow up with neurology outpatient Follow-up with cardiology in 1-2 weeks Follow-up with nephrology in one week Continue low potassium diet Recommend repeat labs in the next 2-3 days Discharge Disposition: HOME WITH HOME HEALTH SERVICES
--- NOTE | 2022-09-08 14:59 | CDI ---
Documentation Clarification Form Date: 09/08/22 From: Basilia Sutton Admit Date: 08/31/2022 10:14:00 AM Patient Name: Chema Cerna Visit Number: [id number] Discharge Date: 09/04/2022 03:40:00 PM ATTENTION: The Clinical Documentation Specialists (CDI) and [facility] Coding Staff appreciate your assistance in clarifying documentation. Please respond to the clarification below the line at the bottom and electronically sign. The CDI & [facility] Coding staff will review the response and follow-up if needed. Please note: Queries are made part of the Legal Health Record. If you have any questions, please contact the author of this message via ITS. Dr. Omar Escobedo, Your patient has CKD documented . Based on this information and the findings below, is there an additional diagnosis that is clinically appropriate for this patient? Patient history/risk factors: Cerebral Infarction, ESRD, HTN, DM, COPD, Depression & Anxiety Historical BUN/Cr/GFR: 07/14/21 28/2.37/27 01/23/22 27/2.08/32 07/12/22 26/2.11/26 Clinical Indicators: BUN/Cr/GFR: U/A Output 08/29 41/2.67/24 08/30 41/2.58/25 900ml 08/31 34/2.37/27 1850ml / 30/2.35/27 900ml 6/7 34/2.44/26 550ml / 32/2.24/29 775ml 09/04 42/2.5/26 1800ml Is there an additional diagnosis that is clinically appropriate for this patient? [ ] Acute Kidney Injury [ x] Acute Renal Failure [ ] Acute on Chronic Renal Failure (please stage) [ ] No additional diagnosis/Not clinically significant [ ] Unable to determine [ ] Other, please specify Reference: KDIGO RICKY Criteria An increase in serum creatinine by greater than or equal to 0.3 mg/dL within 48 hours; An increase in serum creatinine by greater than or equal to 1.5 times baseline, which is known or presumed to have occurred within the prior 7 days; A urine volume less than 0.5 ml/kg/h for 6 hours. When the baseline is unknown the lowest creatinine during admission assumed to be baseline MTDD
== END 2022-09-04 15:40 | disposition home health service (06) | DRG 64 ==
LOC: EC 13:03 → 6NMEDSUR 16:41 → OBSVTOIN 08-31 10:14
PROVIDERS: ADMIT Internal Medicine; ATTEND Internal Medicine
DX: I63.543 Cerebral infarction due to unspecified occlusion or stenosis of bilateral cerebellar arteries (principal); N18.6 End stage renal disease; I13.2 Hypertensive heart and chronic kidney disease with heart failure and with stage 5 chronic kidney disease, or end stage renal disease; I69.351 Hemiplegia and hemiparesis following cerebral infarction affecting right dominant side; I16.1 Hypertensive emergency; E87.20 Acidosis, unspecified; N17.9 Acute kidney failure, unspecified; E11.22 Type 2 diabetes mellitus with diabetic chronic kidney disease; I50.9 Heart failure, unspecified; E11.51 Type 2 diabetes mellitus with diabetic peripheral angiopathy without gangrene; J44.9 Chronic obstructive pulmonary disease, unspecified; Z28.310 Unvaccinated for COVID-19; I65.22 Occlusion and stenosis of left carotid artery; F32.A Depression, unspecified; F41.9 Anxiety disorder, unspecified; H81.399 Other peripheral vertigo, unspecified ear; E87.8 Other disorders of electrolyte and fluid balance, not elsewhere classified; I25.10 Atherosclerotic heart disease of native coronary artery without angina pectoris; H93.13 Tinnitus, bilateral; E78.5 Hyperlipidemia, unspecified; G47.30 Sleep apnea, unspecified; E87.5 Hyperkalemia; N42.9 Disorder of prostate, unspecified; H53.2 Diplopia; F17.210 Nicotine dependence, cigarettes, uncomplicated; M54.9 Dorsalgia, unspecified; M19.90 Unspecified osteoarthritis, unspecified site; M79.89 Other specified soft tissue disorders; R26.9 Unspecified abnormalities of gait and mobility; R41.3 Other amnesia; R32 Unspecified urinary incontinence; Z79.82 Long term (current) use of aspirin; Z79.02 Long term (current) use of antithrombotics/antiplatelets; Z79.84 Long term (current) use of oral hypoglycemic drugs; Z79.899 Other long term (current) drug therapy; Z96.643 Presence of artificial hip joint, bilateral; Z95.1 Presence of aortocoronary bypass graft; Z86.79 Personal history of other diseases of the circulatory system
CPT/HCPCS: 36415; 70544; 70547; 70551; 80048; 80053; 80061; 83036; 83735; 84443; 84484; 85025; 85610; 93005; 93270; 93306; 93880; 96374; 96375; 99285

== ENCOUNTER 2022-10-06 14:37 | Inpatient (IN) | payer MEDICARE ==
[2022-10-06] MEDS ORDERED: SODIUM CHLORIDE 0.9% 1,000 ML IV STA ×2 (15:52→17:20)
[2022-10-06 16:46] LABS: Anisocytosis Slight; Basophils % (A) 0 %; Eosinophils # (A) 0.1 k/uL (0-0.7); Eosinophils % (A) 1 %; HCT 29.4 % (39.0-53.0); Hypochromasia Slight; Lymphocytes # (A) 0.6 k/uL (1.0-4.8); Lymphocytes % (A) 4 %; MCH 29.5 pg (25.0-35.0); MCHC 32.4 g/dL (31.0-37.0); MCV 90.9 fL (80.0-100.0); Mean Platelet Volume 7.9; Monocytes # (A) 0.7 k/uL (0-1.0); Monocytes % (A) 4 %; Neutrophils % (A) 89 %; Platelet Count 246 k/uL (150-450); Poikilocytosis Slight; RBC 3.23 m/uL (4.30-5.90); RDW 16.1 % (11.5-15.5); WBC 16.8 k/uL (3.8-10.6)
[2022-10-06 16:48] LABS: HGB 9.5 gm/dL (13.0-17.5)
[2022-10-06 16:50] LABS: ALT 64 U/L (4-49); AST 42 U/L (17-59); African American GFR (CKD) 22 (>60 ml/min/1.73 sqM); Alkaline Phosphatase 74 U/L (38-126); Anion Gap 13 mmol/L; Blood Urea Nitrogen 54 mg/dL (9-20); Calcium 7.9 mg/dL (8.4-10.2); Carbon Dioxide 10 mmol/L (22-30); Chloride 113 mmol/L (98-107); Glucose 167 mg/dL (74-99); Non-African American GFR(CKD) 19 (>60 ml/min/1.73 sqM); Potassium 5.2 mmol/L (3.5-5.1); Sodium 136 mmol/L (137-145); Total Bilirubin 0.3 mg/dL (0.2-1.3); Total Protein 5.5 g/dL (6.3-8.2)
--- NOTE | 2022-10-06 18:15 | XR ---
EXAMINATION TYPE: XR chest 2V DATE OF EXAM: 10/06/2022 5:57 PM COMPARISON: Chest radiographs from 01/26/2017 TECHNIQUE: XR chest 2V Frontal and lateral views of the chest. CLINICAL INDICATION:Male, 67 years old with history of dizziness; FINDINGS: Lungs/Pleura: There is no evidence of pleural effusion, focal consolidation, or pneumothorax. Pulmonary vascularity: Unremarkable. Heart/mediastinum: Cardiomediastinal silhouette is unremarkable. Atherosclerotic calcifications are seen in the aorta. Musculoskeletal: No acute osseous pathology. Midline sternotomy wires are noted. IMPRESSION: No acute cardiopulmonary disease/process.
--- NOTE | 2022-10-06 18:43 | ED ---
Dizziness HPI - General Chief Complaint: Dizziness Stated Complaint: hypotension Time Seen by Provider: 10/06/22 15:28 Source: patient Mode of arrival: ambulatory Limitations: no limitations - History of Present Illness Initial Comments: C7-year-old male with past medical history significant for hypertension, hyperlipidemia, type 2 diabetes, and chronic kidney disease stage III presents to the ED with a chief complaint of hypotension. Patient states that he went to his PCPs office for a regular checkup due to his diabetes and varied notes that his blood pressure was in the 80s systolic. Due to this, called EMS and had the patient transported here for further evaluation. She reports that he takes many medications and lately has been getting them mixed up notes that he may have took too many of his blood pressure medications. Patient notes some dizziness following that it feels like he going to pass out however denies any syncopal episodes. Denies chest pain shortness of breath. No other complaints. - Related Data Home Medications Medication Instructions Recorded Confirmed Aspirin [Adult Low Dose Aspirin EC] 81 mg PO HS 01/26/17 08/29/22 Fenofibrate Nanocrystallized 145 mg PO HS 09/01/18 08/29/22 [Fenofibrate] allopurinoL [Zyloprim] 100 mg PO HS 09/01/18 08/29/22 Atorvastatin [Lipitor] 80 mg PO HS 05/16/21 08/29/22 Ezetimibe [Zetia] 10 mg PO HS 05/16/21 08/29/22 Dapagliflozin Propanediol [Farxiga] 5 mg PO HS 07/10/22 08/29/22 Ergocalciferol (Vitamin D2) 1,250 mcg PO MOTH 07/10/22 08/29/22 [Drisdol (50,000 Iu)] Prazosin HCl 2 mg PO HS 07/10/22 08/29/22 Sertraline [Zoloft] 50 mg PO HS 07/10/22 08/29/22 ARIPiprazole [Abilify] 5 mg PO DAILY 08/29/22 08/29/22 Donepezil [Aricept] 5 mg PO HS 08/29/22 08/29/22 Meclizine [Antivert] 12.5 mg PO TID PRN 08/29/22 08/29/22 Previous Rx's Medication Instructions Recorded amLODIPine [Norvasc] 10 mg PO DAILY #0 07/15/22 Cyanocobalamin [Vitamin B-12] 500 mcg PO DAILY #30 tab 09/04/22 Folic Acid 0.5 mg PO DAILY #15 tab 09/04/22 Sodium Bicarbonate Tab 650 mg PO TID #90 tab 09/04/22 Ticagrelor [Brilinta] 90 mg PO BID 30 Days #60 tab 09/04/22 carvediloL [Coreg*] 25 mg PO BID-W/MEALS #60 tab 09/04/22 hydrALAZINE HCL [Apresoline] 50 mg PO TID #90 tab 09/04/22 Allergies Allergy/AdvReac Type Severity Reaction Status Date / Time No Known Allergies Allergy Verified 10/06/22 14:48 Review of Systems ROS Statement: Those systems with pertinent positive or pertinent negative responses have been documented in the HPI. ROS Other: All systems not noted in ROS Statement are negative. Past Medical History Past Medical History: Coronary Artery Disease (CAD), Chest Pain / Angina, Heart Failure, COPD, CVA/TIA, Diabetes Mellitus, Hyperlipidemia, Hypertension, Osteoarthritis (OA), Prostate Disorder, Renal Disease, Sleep Apnea/CPAP/BIPAP, Supraventricular Tachycardia (SVT), Syncope, Vascular Disorder Additional Past Medical History / Comment(s): BACK PAIN , CVA 2013 and TIA 2014- short-term memory problems, rt side still slightly weaker , hx occ double vision & vertigo, tinnitus., sleep apnea (no machine), states kidney disease improving, uses walker prn., states sore on his tailbone.,wears continues g lucose monitor on abd., states positive cologard., urine incontinence -wears pads History of Any Multi-Drug Resistant Organisms: None Reported Past Surgical History: Appendectomy, Coronary Bypass/CABG, Heart Catheterization, Hernia Repair, Joint Replacement Additional Past Surgical History / Comment(s): RIGHT HIP REPLACEMENT 2002. Left hip arthroplasty anterior approach 09/09/2018. Quadruple Bypass . Past Anesthesia/Blood Transfusion Reactions: No Reported Reaction Past Psychological History: Anxiety, Depression Smoking Status: Current every day smoker Past Alcohol Use History: Rare Past Drug Use History: Marijuana - Past Family History Father Family Medical History: Myocardial Infarction (OR) Mother Family Medical History: Coronary Artery Disease (CAD) Daughter(s) Family Medical History: No Reported History Son(s) Family Medical History: No Reported History General Exam Limitations: no limitations General appearance: alert Respiratory exam: Present: other (Course breath sounds bilaterally) Cardiovascular Exam: Present: regular rate, normal rhythm GI/Abdominal exam: Present: soft (No tenderness to palpation. No rebound guarding or rigidity.) Neurological exam: Present: alert, oriented X3 Skin exam: Present: warm, dry Course Vital Signs 10/06/22 10/06/22 10/06/22 14:40 16:18 17:16 Temperature 97.9 F Pulse Rate 64 67 Respiratory 18 Rate Blood Pressure 124/65 122/69 95/76 O2 Sat by Pulse 99 Oximetry 10/06/22 17:51 Temperature Pulse Rate 67 Respiratory Rate Blood Pressure 133/65 O2 Sat by Pulse Oximetry Medical Decision Making - Medical Decision Making Was pt. sent in by a medical professional or institution (, PA, CUSTOMER MARKETING MANAGER, urgent care, hospital, or halfway...) When possible be specific @ -Sent in by a medical office Did you speak to anyone other than the patient for history (EMS, parent, family, police, friend...)? What history was obtained from this source @ -No Did you review nursing and triage notes (agree or disagree)? Why? @ -I reviewed and agree with nursing and triage notes Were old charts reviewed (outside hosp., previous admission, EMS record, old EKG, old radiological studies, urgent care reports/EKG's, halfway records)? Report findings @ -Review of previous visit on 09/04/22 shows problems with recurrent dizziness and ataxia due to acute/subacute left thalmus and right insular cortex stroke Differential Diagnosis (chest pain, altered mental status, abdominal pain women, abdominal pain men, vaginal bleeding, weakness, fever, dyspnea, syncope, headache, dizziness, GI bleed, back pain, seizure, CVA, palpatations, mental health, musculoskeletal)? @ -Differential Dizziness: Benign paroxysmal positional Vertigo, Menieres disease, otitis media, acoustic neuroma, vertebrobasilar insufficiency, cerebellar stroke, encephalitis, hypovolemic, arrhythmia, coronary artery syndrome, anemia, this is not meant to be an all-inclusive list EKG interpreted by me (3pts min.). @ -As above X-rays interpreted by me (1pt min.). @ -Chest x-ray showed no acute process CT interpreted by me (1pt min.). @ -None done U/S interpreted by me (1pt. min.). @ -None done What testing was considered but not performed or refused? (CT, X-rays, U/S, labs)? Why? @ -None What meds were considered but not given or refused? Why? @ -None Did you discuss the management of the patient with other professionals (professionals i.e. , PA, CUSTOMER MARKETING MANAGER, lab, RT, psych nurse, social media sr strategy manager, watch repair technician, teacher, unarmed security officer, showcase trimmer)? Give summary @ -Spoke to case management notes patient has proper help at home to keep track of his medications. Spoke to Aravind [facility]ILL[facility] who accepts admission to Was smoking cessation discussed for >3mins.? @ -No Was critical care preformed (if so, how long)? @ -No Were there social determinants of health that impacted care today? How? (Homelessness, low income, unemployed, alcoholism, drug addiction, transportation, low edu. Level, literacy, decrease access to med. care, penitentiary, rehab)? @ -No Was there de-escalation of care discussed even if they declined (Discuss DNR or withdrawal of care, Hospice)? DNR status @ -No What co-morbidities impacted this encounter? (DM, HTN, Smoking, COPD, CAD, Canc er, CVA, ARF, Chemo, Hep., AIDS, mental health diagnosis, sleep apnea, morbid obesity)? @ -Type 2 diabetes, hyperlipidemia, hypertension, and previous CVA Was patient admitted / discharged? Hospital course, mention meds given and route, prescriptions, significant lab abnormalities, going to OR and other pertinent info. @ -Admitted. Laboratory studies significant for a white count of 16.8 and anemia of 9.5 down from baseline of around 11. Chemistry shows worsening of chronic kidney disease with a BUN at 54 and creatinine of 3.18 also significant for a CO2 of 10. At this time urine pending however upon straight cathing the patient patient notes that he is currently being treated for a UTI. He will be admitted due to recurrent dizziness, anemia, RICKY, hypotension, and UTI. Undiagnosed new problem with uncertain prognosis? @ -No Drug Therapy requiring intensive monitoring for toxicity (Heparin, Nitro, Insulin, Cardizem)? @ -No Were any procedures done? @ -No Diagnosis/symptom? @ -Hypotension, RICKY, UTI, anemia, dizziness Acute, or Chronic, or Acute on Chronic? @ -Acute Uncomplicated (without systemic symptoms) or Complicated (systemic symptoms)? @ -Uncomplicated Side effects of treatment? @ -No Exacerbation, Progression, or Severe Exacerbation? @ -No Poses a threat to life or bodily function? How? (Chest pain, USA, OR, pneumonia, PE, COPD, DKA, ARF, appy, cholecystitis, CVA, Diverticulitis, Homicidal, Suicidal, threat to staff... and all critical care pts) @ -No - Lab Data Result diagrams: 10/06/22 16:00 10/06/22 16:00 Lab Results 10/06/22 10/06/22 Range/Units 16:00 16:00 WBC 16.8 H (3.8-10.6) k/uL RBC 3.23 L (4.30-5.90) m/uL Hgb 9.5 L D (13.0-17.5) gm/dL Hct 29.4 L (39.0-53.0) % MCV 90.9 (80.0-100.0) fL MCH 29.5 (25.0-35.0) pg MCHC 32.4 (31.0-37.0) g/dL RDW 16.1 H (11.5-15.5) % Plt Count 246 (150-450) k/uL MPV 7.9 Neutrophils % 89 % Lymphocytes % 4 % Monocytes % 4 % Eosinophils % 1 % Basophils % 0 % Neutrophils # 15.0 H (1.3-7.7) k/uL Lymphocytes # 0.6 L (1.0-4.8) k/uL Monocytes # 0.7 (0-1.0) k/uL Eosinophils # 0.1 (0-0.7) k/uL Basophils # 0.0 (0-0.2) k/uL Hypochromasia Slight Poikilocytosis Slight Anisocytosis Slight Sodium 136 L (137-145) mmol/L Potassium 5.2 H (3.5-5.1) mmol/L Chloride 113 H (98-107) mmol/L Carbon Dioxide 10 L (22-30) mmol/L Anion Gap 13 mmol/L BUN 54 H (9-20) mg/dL Creatinine 3.18 H (0.66-1.25) mg/dL Est GFR (CKD-EPI)AfAm 22 (>60 ml/min/1.73 sqM) Est GFR (CKD-EPI)NonAf 19 (>60 ml/min/1.73 sqM) Glucose 167 H (74-99) mg/dL Calcium 7.9 L (8.4-10.2) mg/dL Total Bilirubin 0.3 (0.2-1.3) mg/dL AST 42 (17-59) U/L ALT 64 H (4-49) U/L Alkaline Phosphatase 74 (38-126) U/L Total Protein 5.5 L (6.3-8.2) g/dL Albumin 3.0 L (3.5-5.0) g/dL - EKG Data EKG Comments: EKG shows a sinus rhythm at [address] or T-wave changes. [place] 163, QRS 93, QT/QTc 403/417 Disposition Clinical Impression: RICKY (acute kidney injury), UTI (urinary tract infection), Hypotension, Dizziness Disposition: ADMITTED IP TO THIS HOSP Referrals: Ashok Hidalgo MD [Primary Care Provider] - 1-2 days Forms: Community Resources, Help In The Home, Personal Business Support Manager Decision Time: 19:00
[2022-10-06] MEDS ORDERED: HYDROmorphone 0.5 MG/0.5 ML SYRINGE IVP PRN (19:17)
[2022-10-06] MEDS ORDERED: NALOXONE 0.4 MG/ML 1 ML VIAL IV PRN (19:17)
[2022-10-06] MEDS ORDERED: ACETAMINOPHEN TAB 325 MG TAB PO PRN (19:17)
[2022-10-06] MEDS ORDERED: HYDROmorphone 1 MG/ML 1 ML SYRINGE IVP PRN (19:17)
[2022-10-06] MEDS ORDERED: ONDANSETRON 4 MG/2 ML VIAL IVP PRN (19:17)
[2022-10-06] MEDS ORDERED: cefTRIAXone IN SWFI 1,000 MG/10 ML SYRINGE IVP STA (19:21)
[2022-10-06 19:23] LABS: Appearance,Urine Clear (Clear); Bacteria,Urine Rare /hpf; Bilirubin,Urine Negative (Negative); Blood,Urine Negative (Negative); Color,Urine Light Yellow; Glucose,Urine (UA) 4+ (Negative); Ketones,Urine Negative (Negative); Leukocyte Esterase,Urine Moderate (Negative); Nitrite,Urine Negative (Negative); PH, Urine 5.5 (5.0-8.0); Protein,Urine 2+ (Negative); RBC,Urine 1 /hpf (0-5); Specific Gravity,Urine 1.006 (1.001-1.035); Squamous Epithelial Cell,Urine 1 /hpf (0-4); Urobilinogen,Urine <2.0 mg/dL (<2.0); WBC,Urine 24 /hpf (0-5)
[2022-10-06] MEDS: SODIUM CHLORIDE 0.9% 1,000 ML IV SCH (20:10)
[2022-10-06] MEDS ORDERED: MECLIZINE 12.5 MG TAB PO PRN (22:09)
[2022-10-06] MEDS: ASPIRIN 81 MG PO SCH (22:35)
[2022-10-06] MEDS: ATORVASTATIN 80 MG TAB PO SCH (22:35)
[2022-10-06] MEDS: allopurinoL 100 MG TAB PO SCH (22:35)
[2022-10-06] MEDS: FOLIC ACID 1 MG TAB PO SCH (22:35)
[2022-10-06] MEDS: DONEPEZIL 5 MG TAB PO SCH (22:36)
[2022-10-06] MEDS: SERTRALINE 50 MG TAB PO SCH (22:38)
[2022-10-07 06:23] LABS: Glucose,Whole Blood 105 mg/dL (70-110)
[2022-10-07] MEDS: SODIUM CHLORIDE 0.9% 1,000 ML IV SCH (07:47)
[2022-10-07] MEDS: ARIPiprazole 5 MG TAB PO SCH (07:48)
[2022-10-07] MEDS: FOLIC ACID 1 MG TAB PO SCH (07:48)
[2022-10-07] MEDS: SODIUM BICARBONATE TAB 650 MG TAB PO SCH ×3 (07:49→21:30)
[2022-10-07] MEDS: TICAGRELOR 90 MG TAB PO SCH ×2 (07:49→21:31)
[2022-10-07] MEDS: METOPROLOL SUCCINATE (ER) 25 MG TAB.ER.24H PO SCH ×2 (07:49→21:30)
[2022-10-07] MEDS: CYANOCOBALAMIN 500 MCG TAB PO SCH (07:49)
[2022-10-07 11:20] LABS: Glucose,Whole Blood 259 mg/dL (70-110)
[2022-10-07] MEDS ORDERED: DEXTROSE 50% SYRINGE 50 ML IVP PRN ×2 (13:42)
--- NOTE | 2022-10-07 14:05 | P.HPIM ---
History of Present Illness H&P Date: 10/07/22 History of present illness; patient is 67-year-old gentleman with past medical h istory significant for hypertension, hyperlipidemia, diabetes mellitus and the ER because of low blood pressure. Patient was sent in by his PCP for low blood pressure. Patient went for regular checkup and was found to have his blood pressure in the 80s. Patient stated that he has been on number of blood pressure medications and may be taking too much of those medications by accident. Patient has been combining of dizziness and feeling of passing out. Denies any fever or chills. Denies any nausea or vomiting. No complaint of recent falls. Because of low blood pressure, patient was sent to ER Initial lab work done in the ER showed WBC 16.8, he was benign 0.5, sodium 136, potassium 5.2, BUN 54, creatinine 3.18 Patient was admitted to medicine service REVIEW OF SYSTEMS: CONSTITUTIONAL: Complaining of lethargy and weakness HEENT: No recent visual problems or hearing problems. Denied any sore throat. CARDIOVASCULAR: No chest pain, orthopnea, PND, no palpitations, no syncope. PULMONARY: No shortness of breath, no cough, no hemoptysis. GASTROINTESTINAL: No diarrhea, no nausea, no vomiting, no abdominal pain. NEUROLOGICAL: No headaches, no weakness, no numbness. HEMATOLOGICAL: Denies any bleeding or petechiae. GENITOURINARY: Denies any burning micturition, frequency, or urgency. MUSCULOSKELETAL/RHEUMATOLOGICAL: Denies any joint pain, swelling, or any muscle pain. ENDOCRINE: Denies any polyuria or polydipsia. The rest of the 14-point review of systems is negative. PHYSICAL EXAMINATION: GENERAL: The patient is alert and oriented x3, not in any acute distress. Well developed, well nourished. HEENT: Pupils are round and equally reacting to light. EOMI. No scleral icterus. No conjunctival pallor. Normocephalic, atraumatic. No pharyngeal erythema. No thyromegaly. CARDIOVASCULAR: S1 and S2 present. No murmurs, rubs, or gallops. PULMONARY: Chest is clear to auscultation, no wheezing or crackles. ABDOMEN: Soft, nontender, nondistended, normoactive bowel sounds. No palpable organomegaly. MUSCULOSKELETAL: No joint swelling or deformity. EXTREMITIES: No cyanosis, clubbing, or pedal edema. NEUROLOGICAL: Gross neurological examination did not reveal any focal deficits. SKIN: No rashes. Assessment and plan Hyperkalemia Acute on chronic kidney disease UTI Hypertension Hyperlipidemia Monitor vital signs Monitor CBC Monitor CMP Continue telemetry monitoring Check orthostatics Avoid nephrotoxic agents Ordered ultrasound of kidneys Continue IV fluids Continue IV Rocephin to complete a 3 day course of antibiotics [employer] nephrology Labs and medication were reviewed.. Continue same treatment. Continue with symptomatic treatment. Resume home medication. Monitor labs and vitals. DVT and GI prophylaxis. Further recommendations as per clinical course of the patient Past Medical History Past Medical History: Coronary Artery Disease (CAD), Chest Pain / Angina, Heart Failure, COPD, CVA/TIA, Diabetes Mellitus, Hyperlipidemia, Hypertension, Osteoarthritis (OA), Prostate Disorder, Renal Disease, Sleep Apnea/CPAP/BIPAP, Supraventricular Tachycardia (SVT), Syncope, Vascular Disorder Additional Past Medical History / Comment(s): BACK PAIN , CVA 2013 and TIA 2014- short-term memory problems, rt side still slightly weaker , hx occ double vision & vertigo, tinnitus., sleep apnea (no machine), states kidney disease improving, uses walker prn., states sore on his tailbone.,wears continues glucose monitor on abd., states positive cologard., urine incontinence -wears pads. stroke 09/18 History of Any Multi-Drug Resistant Organisms: None Reported Past Surgical History: Appendectomy, Coronary Bypass/CABG, Heart C atheterization, Hernia Repair, Joint Replacement Additional Past Surgical History / Comment(s): RIGHT HIP REPLACEMENT 2002. Left hip arthroplasty anterior approach 09/09/2018. Quadruple Bypass . Past Anesthesia/Blood Transfusion Reactions: No Reported Reaction Past Psychological History: Anxiety, Depression Smoking Status: Former smoker Past Alcohol Use History: Rare Additional Past Alcohol Use History / Comment(s): SMOKES 2 CIGARELLOS/DAY, STARTED SMOKING 1976, QUIT AND RESTARTED., HX OF 2PPD. Quit 08/29/22. Past Drug Use History: Marijuana Additional Drug Use History / Comment(s): STATES RARE MARIUANA USE. - Past Family History Father Family Medical History: Myocardial Infarction ([place]) Mother Family Medical History: Coronary Artery Disease (CAD) Daughter(s) Family Medical History: No Reported History Son(s) Family Medical History: No Reported History Medications and Allergies Home Medications Medication Instructions Recorded Confirmed Type RX: Aspirin [Adult Low Dose 81 mg PO HS 01/26/17 10/06/22 History Aspirin EC] RX: Fenofibrate Nanocrystallized 145 mg PO HS 09/01/18 10/06/22 History [Fenofibrate] RX: allopurinoL [Zyloprim] 100 mg PO HS 09/01/18 10/06/22 History RX: Atorvastatin [Lipitor] 80 mg PO HS 05/16/21 10/06/22 History RX: Ezetimibe [Zetia] 10 mg PO HS 05/16/21 10/06/22 History RX: Dapagliflozin Propanediol 5 mg PO HS 07/10/22 10/06/22 History [Farxiga] RX: Ergocalciferol (Vitamin D2) 1,250 mcg PO Q7D 07/10/22 10/06/22 History [Drisdol (50,000 Iu)] RX: Prazosin HCl 2 mg PO HS 07/10/22 10/06/22 History RX: Sertraline [Zoloft] 50 mg PO HS 07/10/22 10/06/22 History RX: ARIPiprazole [Abilify] 5 mg PO DAILY 08/29/22 10/06/22 History RX: Donepezil [Aricept] 5 mg PO HS 08/29/22 10/06/22 History RX: Meclizine [Antivert] 12.5 mg PO TID PRN 08/29/22 10/06/22 History RX: Cyanocobalamin [Vitamin B-12] 500 mcg PO DAILY #30 tab 09/04/22 10/06/22 Rx RX: Folic Acid 0.5 mg PO DAILY #15 tab 09/04/22 10/06/22 Rx RX: Sodium Bicarbonate Tab 650 mg PO TID #90 tab 09/04/22 10/06/22 Rx RX: Ticagrelor [Brilinta] 90 mg PO BID 30 Days #60 tab 09/04/22 10/06/22 Rx RX: hydrALAZINE HCL [Apresoline] 50 mg PO TID #90 tab 09/04/22 10/06/22 Rx Cephalexin [Keflex] 500 mg PO BID 10/06/22 10/06/22 History RX: amLODIPine [Norvasc] 10 mg PO HS 10/06/22 10/06/22 History RX: carvediloL [Coreg*] 25 mg PO DAILY 10/06/22 10/06/22 History RX: tadalafiL 20 mg PO DAILY 10/06/22 10/06/22 History Turmeric Root Extract [Turmeric] 500 mg PO DAILY 10/06/22 10/06/22 History Allergies Allergy/AdvReac Type Severity Reaction Status Date / Time No Known Allergies Allergy Verified 10/06/22 20:24 Physical Exam Vitals: Vital Signs Temp Pulse Pulse Resp BP BP Pulse Ox 10/07/22 02:00 97.9 F 70 17 138/55 99 10/06/22 21:45 98.1 F 73 17 123/51 98 10/06/22 21:04 98.1 F 70 16 123/64 70 L 10/06/22 21:01 98.1 F 70 16 123/64 97 10/06/22 19:53 98.0 F 72 16 124/66 97 10/06/22 17:51 67 133/65 10/06/22 17:16 95/76 10/06/22 16:18 67 122/69 10/06/22 14:40 97.9 F 64 18 124/65 99 Intake and Output 10/06/22 10/07/22 10/07/22 22:59 06:59 14:59 Other: Voiding Method Diaper Diaper Incontinent Incontinent # Voids 1 1 3 # Bowel Movements 1 Weight 58.967 kg Results CBC & Chem 7: 10/06/22 16:00 10/06/22 16:00 Labs: Abnormal Lab Results - Last 24 Hours (Table) 10/06/22 10/06/22 10/06/22 Range/Units 16:00 16:00 18:59 WBC 16.8 H (3.8-10.6) k/uL RBC 3.23 L (4.30-5.90) m/uL Hgb 9.5 L D (13.0-17.5) gm/dL Hct 29.4 L (39.0-53.0) % RDW 16.1 H (11.5-15.5) % Neutrophils # 15.0 H (1.3-7.7) k/uL Lymphocytes # 0.6 L (1.0-4.8) k/uL Sodium 136 L (137-145) mmol/L Potassium 5.2 H (3.5-5.1) mmol/L Chloride 113 H (98-107) mmol/L Carbon Dioxide 10 L (22-30) mmol/L BUN 54 H (9-20) mg/dL Creatinine 3.18 H (0.66-1.25) mg/dL Glucose 167 H (74-99) mg/dL Calcium 7.9 L (8.4-10.2) mg/dL ALT 64 H (4-49) U/L Total Protein 5.5 L (6.3-8.2) g/dL Albumin 3.0 L (3.5-5.0) g/dL Urine Protein 2+ H (Negative) Urine Glucose (UA) 4+ H (Negative) Ur Leukocyte Esterase Moderate H (Negative) Urine WBC 24 H (0-5) /hpf Urine Bacteria Rare H (None) /hpf Thrombosis Risk Factor Assmnt - Choose All That Apply Each Factor Represents 1 point: Abnormal pulmonary function (COPD) Each Risk Factor Represents 2 Points: Age 61-74 years Thrombosis Risk Factor Assessment Total Risk Factor Score: 3 Thrombosis Risk Factor Assessment Level: Moderate Risk
--- NOTE | 2022-10-07 15:01 | P.NPCON ---
History of Present Illness - Reason for Consult chronic renal failure - History of Present Illness Reason for consultation: Acute kidney injury on chronic kidney disease History of present illness: Patient is a 67-year-old male seen in renal consultation for acute kidney injury on chronic kidney disease. Patient has chronic kidney disease stage IIIB with baseline creatinine in the range of 2.1-2.3 secondary to diabetic kidney disease. Patient was sent to the hospital from his PCPs office due to hypo tension. Patient states his blood pressure was in the 80s and he almost passed out. He denies losing any consciousness or falling. He denies use of nonsteroidals. He has long-standing history of diabetes. Denies history of coronary artery disease. Oral intake has been fair. No vomiting or diarrhea. Has been voiding. No gross hematuria. No fever or chills. Blood pressure currently controlled. Most recent reading 133/68. He was on antihypertensives at home which apparently helped. Noted to be quite acidotic on admission yesterday bicarb level of 10. Currently receiving normal saline at 75 mL an hour. Vital signs are stable. General: No acute distress. HEENT: Head exam is unremarkable. LUNGS: No audible rhonchi or wheezes. HEART: Rate and Rhythm are regular. ABDOMEN: Nontender. EXTREMITITES: No edema. Past Medical History Past Medical History: Coronary Artery Disease (CAD), Chest Pain / Angina, Heart Failure, COPD, CVA/TIA, Diabetes Mellitus, Hyperlipidemia, Hypertension, Osteoarthritis (OA), Prostate Disorder, Renal Disease, Sleep Apnea/CPAP/BIPAP, Supraventricular Tachycardia (SVT), Syncope, Vascular Disorder Additional Past Medical History / Comment(s): BACK PAIN , CVA 2013 and TIA 2014- short-term memory problems, rt side still slightly weaker , hx occ double vision & vertigo, tinnitus., sleep apnea (no machine), states kidney disease improving, uses walker prn., states sore on his tailbone.,wears continues glucose monitor on abd., states positive cologard., urine incontinence -wears pads. stroke 09/18 History of Any Multi-Drug Resistant Organisms: None Reported Past Surgical History: Appendectomy, Coronary Bypass/CABG, Heart Catheterization , Hernia Repair, Joint Replacement Additional Past Surgical History / Comment(s): RIGHT HIP REPLACEMENT 2002. Left hip arthroplasty anterior approach 09/09/2018. Quadruple Bypass . Past Anesthesia/Blood Transfusion Reactions: No Reported Reaction Past Psychological History: Anxiety, Depression Smoking Status: Former smoker Past Alcohol Use History: Rare Additional Past Alcohol Use History / Comment(s): SMOKES 2 CIGARELLOS/DAY, STARTED SMOKING 1976, QUIT AND RESTARTED., HX OF 2PPD. Quit 08/29/22. Past Drug Use History: Marijuana Additional Drug Use History / Comment(s): STATES RARE MARIUANA USE. - Past Family History Father Family Medical History: Myocardial Infarction ([place]) Mother Family Medical History: Coronary Artery Disease (CAD) Daughter(s) Family Medical History: No Reported History Son(s) Family Medical History: No Reported History Medications and Allergies Home Medications Medication Instructions Recorded Confirmed Type Aspirin [Adult Low Dose Aspirin EC] 81 mg PO HS 01/26/17 10/06/22 History Fenofibrate Nanocrystallized 145 mg PO HS 09/01/18 10/06/22 History [Fenofibrate] allopurinoL [Zyloprim] 100 mg PO HS 09/01/18 10/06/22 History Atorvastatin [Lipitor] 80 mg PO HS 05/16/21 10/06/22 History Ezetimibe [Zetia] 10 mg PO HS 05/16/21 10/06/22 History Dapagliflozin Propanediol [Farxiga] 5 mg PO HS 07/10/22 10/06/22 History Ergocalciferol (Vitamin D2) 1,250 mcg PO Q7D 07/10/22 10/06/22 History [Drisdol (50,000 Iu)] Prazosin HCl 2 mg PO HS 07/10/22 10/06/22 History Sertraline [Zoloft] 50 mg PO HS 07/10/22 10/06/22 History ARIPiprazole [Abilify] 5 mg PO DAILY 08/29/22 10/06/22 History Donepezil [Aricept] 5 mg PO HS 08/29/22 10/06/22 History Meclizine [Antivert] 12.5 mg PO TID PRN 08/29/22 10/06/22 History Cyanocobalamin [Vitamin B-12] 500 mcg PO DAILY #30 tab 09/04/22 10/06/22 Rx Folic Acid 0.5 mg PO DAILY #15 tab 09/04/22 10/06/22 Rx Sodium Bicarbonate Tab 650 mg PO TID #90 tab 09/04/22 10/06/22 Rx Ticagrelor [Brilinta] 90 mg PO BID 30 Days #60 tab 09/04/22 10/06/22 Rx hydrALAZINE HCL [Apresoline] 50 mg PO TID #90 tab 09/04/22 10/06/22 Rx Cephalexin [Keflex] 500 mg PO BID 10/06/22 10/06/22 History Turmeric Root Extract [Turmeric] 500 mg PO DAILY 10/06/22 10/06/22 History amLODIPine [Norvasc] 10 mg PO HS 10/06/22 10/06/22 History carvediloL [Coreg*] 25 mg PO DAILY 10/06/22 10/06/22 History tadalafiL 20 mg PO DAILY 10/06/22 10/06/22 History Allergies Allergy/AdvReac Type Severity Reaction Status Date / Time No Known Allergies Allergy Verified 10/06/22 20:24 Physical Exam Vitals: Vital Signs Temp Pulse Pulse Resp BP BP Pulse Ox 10/07/22 13:50 98.6 F 75 20 133/68 99 10/07/22 02:00 97.9 F 70 17 138/55 99 10/06/22 21:45 98.1 F 73 17 123/51 98 10/06/22 21:04 98.1 F 70 16 123/64 70 L 10/06/22 21:01 98.1 F 70 16 123/64 97 10/06/22 19:53 98.0 F 72 16 124/66 97 10/06/22 17:51 67 133/65 10/06/22 17:16 95/76 10/06/22 16:18 67 122/69 Intake and Output 10/06/22 10/07/22 10/07/22 22:59 06:59 14:59 Other: Voiding Method Diaper Diaper Incontinent Incontinent # Voids 1 1 1 # Bowel Movements 1 Weight 58.967 kg Results - Lab Results Most recent lab results Calcium 7.9 mg/dL (8.4-10.2) L 10/06/22 16:00 10/06/22 16:00 10/06/22 16:00 Assessment and Plan Plan: Assessment: 1. Acute kidney injury secondary to ATN secondary to hypotension. Creatinine 3.18 on admission. 2. Chronic kidney disease stage IIIB with baseline creatinine 2.1-2.3 secondary to diabetic kidney disease. 3. Metabolic acidosis secondary to acute kidney injury. 4. Diabetes mellitus. 5. Hypertension with chronic kidney disease. Currently controlled. 6. UTI on antibiotics. 7. Anemia of chronic kidney disease. Rule out iron deficiency. Plan: Change IV fluids to bicarb drip at 75 mL an hour. Continue to hold antihypertensives. Follow-up renal ultrasound. Check iron studies. Encourage oral intake. Check bladder scan to rule out urinary retention. Avoid nephrotoxins. Continue to monitor renal function and urine output. Thank you for the consultation. I will continue to follow the patient during his hospital stay.
--- NOTE | 2022-10-07 15:36 | US ---
EXAMINATION TYPE: US kidneys/renal and bladder DATE OF EXAM: 10/07/2022 COMPARISON: US 07/11/2022 CLINICAL INDICATION: Male, 67 years old with history of Raad; RAAD EXAM MEASUREMENTS: Right Kidney: 11.8 x 4.6 x 5.5 cm Left Kidney: 12.0 x 5.2 x 5.8 cm Right Kidney: Numerous anechoic areas seen. Largest seen at mid/lateral: 5.7 x 4.8 x 3.9 cm. Left Kidney: Numerous anechoic areas seen. Largest seen at the lower pole: 3.5 x 3.0 x 3.4 cm. Hyperechoic focus seen at mid: 0.3 x 0.3 x 0.2 cm. Bladder: Appears anechoic. Bilateral Jets seen: Yes IMPRESSION: Bilateral renal cysts and left renal calculus. Cortical medullary differentiation is maintained. No o bstructive uropathy.
[2022-10-07 16:26] LABS: Glucose,Whole Blood 194 mg/dL (70-110)
[2022-10-07] MEDS: INSULIN ASPART (NovoLOG) 100 UNIT/ML VIAL SQ SCH ×2 (17:14→21:30)
[2022-10-07] MEDS: DEXTROSE 5% IN WATER 1,000 ML with SODIUM BICARB (1 MEQ/ML) 150 ML IV SCH (17:14)
[2022-10-07 20:46] LABS: Glucose,Whole Blood 188 mg/dL (70-110)
[2022-10-07] MEDS: ATORVASTATIN 80 MG TAB PO SCH (21:30)
[2022-10-07] MEDS: allopurinoL 100 MG TAB PO SCH (21:30)
[2022-10-07] MEDS: ASPIRIN 81 MG PO SCH (21:30)
[2022-10-07] MEDS: SERTRALINE 50 MG TAB PO SCH (21:30)
[2022-10-07] MEDS: FENOFIBRATE 160 MG TAB PO SCH (21:30)
[2022-10-07] MEDS: EZETIMIBE 10 MG TAB PO SCH (21:30)
[2022-10-07] MEDS: DONEPEZIL 5 MG TAB PO SCH (21:30)
[2022-10-08 00:19] LABS: Creatinine,Urine Random 38.5 mg/dL (39.0-259.0)
[2022-10-08 00:39] LABS: % Iron Saturation 29.12 (15.00-50.00)
[2022-10-08 06:33] LABS: Glucose,Whole Blood 130 mg/dL (70-110)
[2022-10-08] MEDS: INSULIN ASPART (NovoLOG) 100 UNIT/ML VIAL SQ SCH ×4 (06:34→20:57)
[2022-10-08] MEDS: DEXTROSE 5% IN WATER 1,000 ML with SODIUM BICARB (1 MEQ/ML) 150 ML IV SCH ×2 (06:46→20:33)
[2022-10-08] MEDS: SODIUM BICARBONATE TAB 650 MG TAB PO SCH ×3 (08:39→20:33)
[2022-10-08] MEDS: METOPROLOL SUCCINATE (ER) 25 MG TAB.ER.24H PO SCH ×2 (08:39→20:33)
[2022-10-08] MEDS: CYANOCOBALAMIN 500 MCG TAB PO SCH (08:39)
[2022-10-08] MEDS: TICAGRELOR 90 MG TAB PO SCH ×2 (08:39→20:32)
[2022-10-08] MEDS: ARIPiprazole 5 MG TAB PO SCH (08:39)
[2022-10-08] MEDS: FOLIC ACID 1 MG TAB PO SCH (08:39)
[2022-10-08 11:08] LABS: Glucose,Whole Blood 219 mg/dL (70-110)
[2022-10-08] MEDS ORDERED: LOPERAMIDE 2 MG CAP PO PRN (11:18)
[2022-10-08 11:26] LABS: Anisocytosis Slight; Basophils # (A) 0.1 k/uL (0-0.2); Basophils % (A) 0 %; Eosinophils # (A) 0.2 k/uL (0-0.7); Eosinophils % (A) 2 %; HCT 31.2 % (39.0-53.0); HGB 9.9 gm/dL (13.0-17.5); Hypochromasia Moderate; Lymphocytes # (A) 0.9 k/uL (1.0-4.8); Lymphocytes % (A) 8 %; MCH 29.4 pg (25.0-35.0); MCHC 31.6 g/dL (31.0-37.0); Mean Platelet Volume 7.5; Monocytes # (A) 0.7 k/uL (0-1.0); Monocytes % (A) 6 %; Neutrophils # (A) 8.6 k/uL (1.3-7.7); Neutrophils % (A) 81 %; Platelet Count 278 k/uL (150-450); Poikilocytosis Slight; RBC 3.36 m/uL (4.30-5.90); WBC 10.6 k/uL (3.8-10.6)
[2022-10-08 11:36] LABS: African American GFR (CKD) 36 (>60 ml/min/1.73 sqM); Anion Gap 8 mmol/L; Blood Urea Nitrogen 33 mg/dL (9-20); Calcium 8.1 mg/dL (8.4-10.2); Carbon Dioxide 16 mmol/L (22-30); Chloride 114 mmol/L (98-107); Glucose 174 mg/dL (74-99); Non-African American GFR(CKD) 31 (>60 ml/min/1.73 sqM); Potassium 4.5 mmol/L (3.5-5.1); Sodium 138 mmol/L (137-145)
[2022-10-08] MEDS: amLODIPine 10 MG TAB PO SCH (11:51)
--- NOTE | 2022-10-08 12:57 | P.PN ---
Subjective Patient is seen in follow-up for acute kidney injury on chronic kidney disease. Renal function improving. He has been voiding. Oral intake is still poor. No chest pain or shortness of breath. Vital signs are stable. General: No acute distress. HEENT: Head exam is unremarkable. LUNGS: No audible rhonchi or wheezes. HEART: Rate and Rhythm are regular. ABDOMEN: Abdominal exam nontender. EXTREMITITES: No edema. Objective - Vital Signs Vital signs: Vital Signs Temp 98.6 F 10/08/22 07:46 Pulse 81 10/08/22 07:46 Resp 14 10/08/22 07:46 BP 173/71 10/08/22 07:46 Pulse Ox 99 10/08/22 07:46 FiO2 Intake & Output 10/07/22 10/08/22 10/08/22 18:59 06:59 18:59 Output Total 900 1000 Balance -900 -1000 Output: Urine 900 1000 Other: Voiding Method Diaper External Catheter External Catheter Incontinent # Voids 2 # Bowel Movements 1 5 3 - Labs CBC & Chem 7: 10/08/22 10:49 10/08/22 10:49 Labs: Abnormal Lab Results - Last 24 Hours (Table) 10/06/22 10/07/22 10/07/22 Range/Units 16:00 12:50 15:06 RBC (4.30-5.90) m/uL Hgb (13.0-17.5) gm/dL Hct (39.0-53.0) % RDW (11.5-15.5) % Neutrophils # (1.3-7.7) k/uL Lymphocytes # (1.0-4.8) k/uL Chloride (98-107) mmol/L Carbon Dioxide (22-30) mmol/L BUN (9-20) mg/dL Creatinine (0.66-1.25) mg/dL Glucose (74-99) mg/dL POC Glucose (mg/dL) (70-110) mg/dL Hemoglobin A1c 6.1 H (<=6.0) % Calcium (8.4-10.2) mg/dL Iron 53 L (65-175) UG/DL TIBC 182 L (228-460) UG/DL Transferrin 130.0 L (204.0-354.0) mg/dL Ferritin 486.0 H (22.0-322.0) ng/mL Ur Random Creatinine 38.5 L (39.0-259.0) mg/dL 10/07/22 10/07/22 10/08/22 Range/Units 16:25 20:45 06:32 RBC (4.30-5.90) m/uL Hgb (13.0-17.5) gm/dL Hct (39.0-53.0) % RDW (11.5-15.5) % Neutrophils # (1.3-7.7) k/uL Lymphocytes # (1.0-4.8) k/uL Chloride (98-107) mmol/L Carbon Dioxide (22-30) mmol/L BUN (9-20) mg/dL Creatinine (0.66-1.25) mg/dL Glucose (74-99) mg/dL POC Glucose (mg/dL) 194 H 188 H 130 H (70-110) mg/dL Hemoglobin A1c (<=6.0) % Calcium (8.4-10.2) mg/dL Iron (65-175) UG/DL TIBC (228-460) UG/DL Transferrin (204.0-354.0) mg/dL Ferritin (22.0-322.0) ng/mL Ur Random Creatinine (39.0-259.0) mg/dL 10/08/22 10/08/22 10/08/22 Range/Units 10:49 10:49 11:06 RBC 3.36 L (4.30-5.90) m/uL Hgb 9.9 L (13.0-17.5) gm/dL Hct 31.2 L (39.0-53.0) % RDW 16.0 H (11.5-15.5) % Neutrophils # 8.6 H (1.3-7.7) k/uL Lymphocytes # 0.9 L (1.0-4.8) k/uL Chloride 114 H (98-107) mmol/L Carbon Dioxide 16 L (22-30) mmol/L BUN 33 H (9-20) mg/dL Creatinine 2.09 H (0.66-1.25) mg/dL Glucose 174 H (74-99) mg/dL POC Glucose (mg/dL) 219 H (70-110) mg/dL Hemoglobin A1c (<=6.0) % Calcium 8.1 L (8.4-10.2) mg/dL Iron (65-175) UG/DL TIBC (228-460) UG/DL Transferrin (204.0-354.0) mg/dL Ferritin (22.0-322.0) ng/mL Ur Random Creatinine (39.0-259.0) mg/dL Microbiology - Last 24 Hours (Table) 10/06/22 19:44 Blood Culture - Preliminary Blood 10/06/22 19:20 Blood Culture - Preliminary Blood Assessment and Plan Plan: Assessment: 1. Acute kidney injury secondary to ATN secondary to hypotension. Creatinine 3.18 on admission - 2.09 today. No hydronephrosis noted on kidney ultrasound. 2. Chronic kidney disease stage IIIB with baseline creatinine 2.1-2.3 secondary to diabetic kidney disease. 3. Metabolic acidosis secondary to acute kidney injury. Improving with bicarbonate drip. 4. Diabetes mellitus. 5. Hypertension with chronic kidney disease. Blood pressure on the higher side. 6. UTI on antibiotics. 7. Anemia of chronic kidney disease. Iron replete. Plan: Maintain bicarbonate drip. Home antihypertensives resumed. Add Aranesp. Encourage oral intake. Avoid nephrotoxins. Continue to monitor renal function and urine output.
[2022-10-08] MEDS ORDERED: DARBEPOETIN ALFA 40 MCG/0.4 ML SYRINGE SQ SCH (14:00)
--- NOTE | 2022-10-08 14:06 | P.PN ---
Subjective Progress Note Date: 10/08/22 patient is 67-year-old gentleman with past medical history significant for hypertension, hyperlipidemia, diabetes mellitus and the ER because of low blood pressure. Patient was sent in by his PCP for low blood pressure. Patient went for regular checkup and was found to have his blood pressure in the 80s. Patient stated that he has been on number of blood pressure medications and may be taking too much of those medications by accident. Patient has been combining of dizziness and feeling of passing out. Denies any fever or chills. Denies any nausea or vomiting. No complaint of recent falls. Because of low blood pressure, patient was sent to ER Initial lab work done in the ER showed WBC 16.8, he was benign 0.5, sodium 136, potassium 5.2, BUN 54, creatinine 3.18 Patient was admitted to medicine service 10/08. Patient seen and examined. Patient blood pressure elevated this morning, resume hydralazine and Norvasc. Complaining of diarrhea, that started yesterday night REVIEW OF SYSTEMS: CONSTITUTIONAL: No fever, no malaise,. CARDIOVASCULAR: No chest pain, no palpitations, no syncope. PULMONARY: No shortness of breath, no cough, GASTROINTESTINAL: no nausea, no vomiting, no abdominal pain. NEUROLOGICAL: No headaches, no weakness, PHYSICAL EXAMINATION: GENERAL: The patient is alert and oriented x3, not in any acute distress. Well developed, well nourished. HEENT: Pupils are round and equally reacting to light. EOMI. No scleral icterus. No conjunctival pallor. Normocephalic, atraumatic. No pharyngeal erythema. No th yromegaly. CARDIOVASCULAR: S1 and S2 present. No murmurs, rubs, or gallops. PULMONARY: Chest is clear to auscultation, no wheezing or crackles. ABDOMEN: Soft, nontender, nondistended, normoactive bowel sounds. No palpable organomegaly. MUSCULOSKELETAL: No joint swelling or deformity. EXTREMITIES: No cyanosis, clubbing, or pedal edema. NEUROLOGICAL: Gross neurological examination did not reveal any focal deficits. SKIN: No rashes. Assessment and plan Hyperkalemia Acute on chronic kidney disease UTI Hypertension Hyperlipidemia Monitor vital signs Monitor CBC Monitor CMP Check orthostatics Avoid nephrotoxic agents Check stool for C. diff Continue IV fluids Continue IV Rocephin to complete a 3 day course of antibiotics Resume Norvasc and hydralazine Follow-up on nephrology recommendations Labs and medication were reviewed.. Continue same treatment. Continue with symptomatic treatment. Resume home medication. Monitor labs and vitals. DVT and GI prophylaxis. Further recommendations as per clinical course of the patient Objective - Vital Signs Vital signs: Vital Signs Temp 98.6 F 10/08/22 07:46 Pulse 81 10/08/22 07:46 Resp 14 10/08/22 07:46 BP 173/71 10/08/22 07:46 Pulse Ox 99 10/08/22 07:46 FiO2 Intake & Output 10/07/22 10/08/22 10/08/22 18:59 06:59 18:59 Output Total 900 1000 Balance -900 -1000 Output: Urine 900 1000 Other: Voiding Method Diaper External Catheter External Catheter Incontinent # Voids 2 # Bowel Movements 1 5 3 - Labs CBC & Chem 7: 10/08/22 10:49 10/08/22 10:49 Labs: Abnormal Lab Results - Last 24 Hours (Table) 10/06/22 10/07/22 10/07/22 Range/Units 16:00 11:19 12:50 POC Glucose (mg/dL) 259 H (70-110) mg/dL Hemoglobin A1c 6.1 H (<=6.0) % Iron (65-175) UG/DL TIBC (228-460) UG/DL Transferrin (204.0-354.0) mg/dL Ferritin (22.0-322.0) ng/mL Ur Random Creatinine 38.5 L (39.0-259.0) mg/dL 10/07/22 10/07/22 10/07/22 Range/Units 15:06 16:25 20:45 POC Glucose (mg/dL) 194 H 188 H (70-110) mg/dL Hemoglobin A1c (<=6.0) % Iron 53 L (65-175) UG/DL TIBC 182 L (228-460) UG/DL Transferrin 130.0 L (204.0-354.0) mg/dL Ferritin 486.0 H (22.0-322.0) ng/mL Ur Random Creatinine (39.0-259.0) mg/dL 10/08/22 Range/Units 06:32 POC Glucose (mg/dL) 130 H (70-110) mg/dL Hemoglobin A1c (<=6.0) % Iron (65-175) UG/DL TIBC (228-460) UG/DL Transferrin (204.0-354.0) mg/dL Ferritin (22.0-322.0) ng/mL Ur Random Creatinine (39.0-259.0) mg/dL Microbiology - Last 24 Hours (Table) 10/06/22 19:44 Blood Culture - Preliminary Blood 10/06/22 19:20 Blood Culture - Preliminary Blood
[2022-10-08 16:42] LABS: Glucose,Whole Blood 224 mg/dL (70-110)
[2022-10-08] MEDS: hydrALAZINE HCL 50 MG TAB PO SCH ×2 (17:42→20:33)
[2022-10-08] MEDS: ASPIRIN 81 MG PO SCH (20:32)
[2022-10-08] MEDS: ATORVASTATIN 80 MG TAB PO SCH (20:32)
[2022-10-08] MEDS: FENOFIBRATE 160 MG TAB PO SCH (20:32)
[2022-10-08] MEDS: DONEPEZIL 5 MG TAB PO SCH (20:33)
[2022-10-08] MEDS: allopurinoL 100 MG TAB PO SCH (20:33)
[2022-10-08] MEDS: SERTRALINE 50 MG TAB PO SCH (20:33)
[2022-10-08] MEDS: EZETIMIBE 10 MG TAB PO SCH (20:33)
[2022-10-08 20:43] LABS: Glucose,Whole Blood 144 mg/dL (70-110)
[2022-10-08] MEDS ORDERED: amLODIPine 10 MG TAB PO SCH (21:00)
[2022-10-09 03:09] LABS: Magnesium 2.1 mg/dL (1.6-2.3)
[2022-10-09 06:06] LABS: Glucose,Whole Blood 150 mg/dL (70-110)
[2022-10-09] MEDS: INSULIN ASPART (NovoLOG) 100 UNIT/ML VIAL SQ SCH ×4 (06:15→21:11)
[2022-10-09] MEDS: METOPROLOL SUCCINATE (ER) 25 MG TAB.ER.24H PO SCH ×2 (07:40→21:12)
[2022-10-09] MEDS: hydrALAZINE HCL 50 MG TAB PO SCH ×3 (07:40→21:13)
[2022-10-09] MEDS: FOLIC ACID 1 MG TAB PO SCH (07:40)
[2022-10-09] MEDS: CYANOCOBALAMIN 500 MCG TAB PO SCH (07:40)
[2022-10-09] MEDS: TICAGRELOR 90 MG TAB PO SCH ×2 (07:40→21:13)
[2022-10-09] MEDS: amLODIPine 10 MG TAB PO SCH (07:40)
[2022-10-09] MEDS: ARIPiprazole 5 MG TAB PO SCH (07:41)
[2022-10-09] MEDS: SODIUM BICARBONATE TAB 650 MG TAB PO SCH ×3 (07:43→21:13)
[2022-10-09 11:07] LABS: HCT 28.3 % (39.6-50.0); HGB 8.9 d/dL (12.0-15.0); MCH 28.8 pg (27.0-32.0); MCHC 31.4 d/dL (32.0-37.0); MCV 91.6 FL (80.0-97.0); Mean Platelet Volume 9.5 FL (9.5-12.2); NRBC Per 100 WBC 0.02 X 10*3/uL (0.00-0.01); Platelet Count 281 X 10*3/uL (140-440); RBC 3.09 X 10*6/uL (4.40-5.60); RDW 15.7 % (11.5-14.5); WBC 11.51 X 10*3/uL (4.50-10.00)
[2022-10-09 11:22] LABS: Glucose,Whole Blood 192 mg/dL (70-110)
[2022-10-09] MEDS: DEXTROSE 5% IN WATER 1,000 ML with SODIUM BICARB (1 MEQ/ML) 150 ML IV SCH (12:22)
[2022-10-09] MEDS: VANCOMYCIN 125 MG CAPSULE PO SCH ×3 (12:23→21:13)
--- NOTE | 2022-10-09 12:29 | P.PN ---
Subjective Patient is seen in follow-up for acute kidney injury on chronic kidney disease. Renal function improving. He has been voiding. Oral intake is improved. No chest pain or shortness of breath. Vital signs are stable. General: No acute distress. HEENT: Head exam is unremarkable. LUNGS: No audible rhonchi or wheezes. HEART: Rate and Rhythm are regular. ABDOMEN: Abdominal exam nontender. EXTREMITITES: No edema. Objective - Vital Signs Vital signs: Vital Signs Temp 98.5 F 10/09/22 07:00 Pulse 65 10/09/22 07:00 Resp 18 10/09/22 07:00 BP 170/81 10/09/22 07:00 Pulse Ox 98 10/09/22 07:00 FiO2 Intake & Output 10/08/22 10/09/22 10/09/22 18:59 06:59 18:59 Output Total 1950 Balance -1950 Output: Urine 1950 Other: Voiding Method External Catheter External Catheter External Catheter # Voids 1 1 # Bowel Movements 2 1 - Labs CBC & Chem 7: 10/09/22 05:44 10/08/22 10:49 Labs: Abnormal Lab Results - Last 24 Hours (Table) 10/08/22 10/08/22 10/08/22 Range/Units 16:41 18:45 20:42 WBC (4.50-10.00) X 10*3/uL RBC (4.40-5.60) X 10*6/uL Hgb (12.0-15.0) d/dL Hct (39.6-50.0) % MCHC (32.0-37.0) d/dL RDW (11.5-14.5) % NRBC/100 WBC Diff (0.00-0.01) X 10*3/uL POC Glucose (mg/dL) 224 H 144 H (70-110) mg/dL C. difficile (EIA) Intrp Positive A (Negative) 10/09/22 10/09/22 10/09/22 Range/Units 05:44 06:04 11:21 WBC 11.51 H (4.50-10.00) X 10*3/uL RBC 3.09 L (4.40-5.60) X 10*6/uL Hgb 8.9 L (12.0-15.0) d/dL Hct 28.3 L (39.6-50.0) % MCHC 31.4 L (32.0-37.0) d/dL RDW 15.7 H (11.5-14.5) % NRBC/100 WBC Diff 0.02 H (0.00-0.01) X 10*3/uL POC Glucose (mg/dL) 150 H 192 H (70-110) mg/dL C. difficile (EIA) Intrp (Negative) Microbiology - Last 24 Hours (Table) 10/06/22 19:44 Blood Culture - Preliminary Blood 10/06/22 19:20 Blood Culture - Preliminary Blood Assessment and Plan Plan: Assessment: 1. Acute kidney injury secondary to ATN secondary to hypotension. Creatinine 3.18 on admission - 2.09 yesterday. No hydronephrosis noted on kidney ultrasound. 2. Chronic kidney disease stage IIIB with baseline creatinine 2.1-2.3 secondary to diabetic kidney disease. 3. Metabolic acidosis secondary to acute kidney injury and GI losses. Improving with bicarbonate drip. 4. Diabetes mellitus. 5. Hypertension with chronic kidney disease. Blood pressure on the higher side. 6. UTI s/p antibiotics. 7. Anemia of chronic kidney disease. Iron replete. On Aranesp. 8. C. diff on oral vancomycin. Plan: Maintain bicarbonate drip. Encourage oral intake. Avoid nephrotoxins. Continue to monitor renal function and urine output. Increase dose of hydralazine to 100 mg. Hold for systolic blood pressure less than 125.
--- NOTE | 2022-10-09 13:06 | P.PN ---
Subjective Progress Note Date: 10/09/22 patient is 67-year-old gentleman with past medical history significant for hypertension, hyperlipidemia, diabetes mellitus and the ER because of low blood pressure. Patient was sent in by his PCP for low blood pressure. Patient went for regular checkup and was found to have his blood pressure in the 80s. Patient stated that he has been on number of blood pressure medications and may be taking too much of those medications by accident. Patient has been combining of dizziness and feeling of passing out. Denies any fever or chills. Denies any nausea or vomiting. No complaint of recent falls. Because of low blood pressure, patient was sent to ER Initial lab work done in the ER showed WBC 16.8, he was benign 0.5, sodium 136, potassium 5.2, BUN 54, creatinine 3.18 Patient was admitted to medicine service 10/08. Patient seen and examined. Patient blood pressure elevated this morning, resume hydralazine and Norvasc. Complaining of diarrhea, that started yesterday night 10/09. Patient seen and examined. Stool for C. diff is positive. States diarrhea he has improved compared to yesterday REVIEW OF SYSTEMS: CONSTITUTIONAL: No fever, no malaise,. CARDIOVASCULAR: No chest pain, no palpitations, no syncope. PULMONARY: No shortness of breath, no cough, GASTROINTESTINAL: no nausea, no vomiting, no abdominal pain. NEUROLOGICAL: No headaches, no weakness, PHYSICAL EXAMINATION: GENERAL: The patient is alert and oriented x3, not in any acute distress. Well developed, well nourished. HEENT: Pupils are round and equally reacting to light. EOMI. No scleral icterus. No conjunctival pallor. Normocephalic, atraumatic. No pharyngeal erythema. No thyromegaly. CARDIOVASCULAR: S1 and S2 present. No murmurs, rubs, or gallops. PULMONARY: Chest is clear to auscultation, no wheezing or crackles. ABDOMEN: Soft, nontender, nondistended, normoactive bowel sounds. No palpable organomegaly. MUSCULOSKELETAL: No joint swelling or deformity. EXTREMITIES: No cyanosis, clubbing, or pedal edema. NEUROLOGICAL: Gross neurological examination did not reveal any focal deficits. SKIN: No rashes. Assessment and plan Hyperkalemia Acute on chronic kidney disease C. diff colitis UTI Hypertension Hyperlipidemia Monitor vital signs Monitor CBC Monitor CMP Check orthostatics Avoid nephrotoxic agents Start oral vancomycin Start cholestyramine Continue IV fluids Continue Norvasc and hydralazine Follow-up on nephrology recommendations Labs and medication were reviewed.. Continue same treatment. Continue with symptomatic treatment. Resume home medication. Monitor labs and vitals. DVT and GI prophylaxis. Further recommendations as per clinical course of the patient Objective - Vital Signs Vital signs: Vital Signs Temp 98.5 F 10/09/22 07:00 Pulse 65 10/09/22 07:00 Resp 18 10/09/22 07:00 BP 170/81 10/09/22 07:00 Pulse Ox 98 10/09/22 07:00 FiO2 Intake & Output 10/08/22 10/09/22 10/09/22 18:59 06:59 18:59 Output Total 1950 Balance -1950 Output: Urine 1950 Other: Voiding Method External Catheter External Catheter External Catheter # Voids 1 # Bowel Movements 2 - Labs CBC & Chem 7: 10/09/22 05:44 10/08/22 10:49 Labs: Abnormal Lab Results - Last 24 Hours (Table) 10/08/22 10/08/22 10/08/22 Range/Units 10:49 10:49 11:06 RBC 3.36 L (4.30-5.90) m/uL Hgb 9.9 L (13.0-17.5) gm/dL Hct 31.2 L (39.0-53.0) % RDW 16.0 H (11.5-15.5) % Neutrophils # 8.6 H (1.3-7.7) k/uL Lymphocytes # 0.9 L (1.0-4.8) k/uL Chloride 114 H (98-107) mmol/L Carbon Dioxide 16 L (22-30) mmol/L BUN 33 H (9-20) mg/dL Creatinine 2.09 H (0.66-1.25) mg/dL Glucose 174 H (74-99) mg/dL POC Glucose (mg/dL) 219 H (70-110) mg/dL Calcium 8.1 L (8.4-10.2) mg/dL C. difficile (EIA) Intrp (Negative) 10/08/22 10/08/22 10/08/22 Range/Units 16:41 18:45 20:42 RBC (4.30-5.90) m/uL Hgb (13.0-17.5) gm/dL Hct (39.0-53.0) % RDW (11.5-15.5) % Neutrophils # (1.3-7.7) k/uL Lymphocytes # (1.0-4.8) k/uL Chloride (98-107) mmol/L Carbon Dioxide (22-30) mmol/L BUN (9-20) mg/dL Creatinine (0.66-1.25) mg/dL Glucose (74-99) mg/dL POC Glucose (mg/dL) 224 H 144 H (70-110) mg/dL Calcium (8.4-10.2) mg/dL C. difficile (EIA) Intrp Positive A (Negative) 10/09/22 Range/Units 06:04 RBC (4.30-5.90) m/uL Hgb (13.0-17.5) gm/dL Hct (39.0-53.0) % RDW (11.5-15.5) % Neutrophils # (1.3-7.7) k/uL Lymphocytes # (1.0-4.8) k/uL Chloride (98-107) mmol/L Carbon Dioxide (22-30) mmol/L BUN (9-20) mg/dL Creatinine (0.66-1.25) mg/dL Glucose (74-99) mg/dL POC Glucose (mg/dL) 150 H (70-110) mg/dL Calcium (8.4-10.2) mg/dL C. difficile (EIA) Intrp (Negative) Microbiology - Last 24 Hours (Table) 10/06/22 19:44 Blood Culture - Preliminary Blood 10/06/22 19:20 Blood Culture - Preliminary Blood
[2022-10-09] MEDS: CHOLESTYRAMINE (WITH SUGAR) 4 GM PACKET PO SCH ×2 (14:25→18:30)
[2022-10-09 16:25] LABS: Glucose,Whole Blood 211 mg/dL (70-110)
[2022-10-09 20:31] LABS: Glucose,Whole Blood 185 mg/dL (70-110)
[2022-10-09] MEDS: allopurinoL 100 MG TAB PO SCH (21:12)
[2022-10-09] MEDS: DONEPEZIL 5 MG TAB PO SCH (21:12)
[2022-10-09] MEDS: SERTRALINE 50 MG TAB PO SCH (21:12)
[2022-10-09] MEDS: ATORVASTATIN 80 MG TAB PO SCH (21:12)
[2022-10-09] MEDS: FENOFIBRATE 160 MG TAB PO SCH (21:12)
[2022-10-09] MEDS: ASPIRIN 81 MG PO SCH (21:12)
[2022-10-09] MEDS: EZETIMIBE 10 MG TAB PO SCH (21:12)
[2022-10-10 01:45] LABS: ALT 67 U/L (10-49); AST 36 U/L (14-35); Albumin 2.9 d/dL (3.8-4.9); Albumin/Globulin Ratio 1.53 Ratio (1.60-3.17); Alkaline Phosphatase 67 U/L (41-126); BUN/Creat Ratio 12.35 Ratio (12.00-20.00); Blood Urea Nitrogen 28.4 mg/dL (9.0-27.0); Calcium 8.1 mg/dL (8.7-10.3); Carbon Dioxide 23.8 mmol/L (21.6-31.8); Chloride 108 mmol/L (96-109); Globulin 1.9 d/dL (1.6-3.3); Glucose 152 mg/dL (70-110); Potassium 4.1 mmol/L (3.5-5.5); Sodium 142 mmol/L (135-145); Total Bilirubin <0.2 mg/dL (0.3-1.2); Total Protein 4.8 d/dL (6.2-8.2)
[2022-10-10] MEDS: DEXTROSE 5% IN WATER 1,000 ML with SODIUM BICARB (1 MEQ/ML) 150 ML IV SCH (04:15)
[2022-10-10 05:37] LABS: Glucose,Whole Blood 142 mg/dL (70-110)
[2022-10-10] MEDS: INSULIN ASPART (NovoLOG) 100 UNIT/ML VIAL SQ SCH ×4 (05:40→21:32)
[2022-10-10] MEDS: TICAGRELOR 90 MG TAB PO SCH ×2 (08:44→21:32)
[2022-10-10] MEDS: METOPROLOL SUCCINATE (ER) 25 MG TAB.ER.24H PO SCH ×2 (08:44→21:32)
[2022-10-10] MEDS: SODIUM BICARBONATE TAB 650 MG TAB PO SCH ×3 (08:44→21:32)
[2022-10-10] MEDS: VANCOMYCIN 125 MG CAPSULE PO SCH ×4 (08:44→21:32)
[2022-10-10] MEDS: ARIPiprazole 5 MG TAB PO SCH (08:45)
[2022-10-10] MEDS: hydrALAZINE HCL 50 MG TAB PO SCH ×3 (08:45→21:31)
[2022-10-10] MEDS: amLODIPine 10 MG TAB PO SCH (08:45)
[2022-10-10] MEDS: CYANOCOBALAMIN 500 MCG TAB PO SCH (08:45)
[2022-10-10] MEDS: FOLIC ACID 1 MG TAB PO SCH (08:45)
[2022-10-10 09:38] LABS: ALT 44 U/L (10-49); AST 19 U/L (14-35); Alkaline Phosphatase 65 U/L (41-126); Blood Urea Nitrogen 21.4 mg/dL (9.0-27.0); Calcium 8.3 mg/dL (8.7-10.3); Carbon Dioxide 27.4 mmol/L (21.6-31.8); Chloride 103 mmol/L (96-109); Glucose 151 mg/dL (70-110); Magnesium 1.8 mg/dL (1.5-2.4); Potassium 4.3 mmol/L (3.5-5.5); Sodium 139 mmol/L (135-145); Total Bilirubin <0.2 mg/dL (0.3-1.2)
[2022-10-10 10:02] LABS: Basophils # (A) 0.09 X 10*3/uL (0.00-0.10); Basophils % (A) 0.8 %; Eosinophils # (A) 0.26 X 10*3/uL (0.04-0.35); Eosinophils % (A) 2.2 %; HCT 29.9 % (39.6-50.0); HGB 9.7 d/dL (12.0-15.0); Lymphocytes # (A) 1.56 X 10*3/uL (0.90-5.00); Lymphocytes % (A) 13.4 %; MCH 29.4 pg (27.0-32.0); MCHC 32.4 d/dL (32.0-37.0); MCV 90.6 FL (80.0-97.0); Mean Platelet Volume 9.4 FL (9.5-12.2); Monocytes # (A) 0.93 X 10*3/uL (0.20-1.00); NRBC Per 100 WBC 0.03 X 10*3/uL (0.00-0.01); Neutrophils # (A) 8.38 X 10*3/uL (1.80-7.70); Neutrophils % (A) 71.9 %; Platelet Count 267 X 10*3/uL (140-440); RDW 15.5 % (11.5-14.5); WBC 11.65 X 10*3/uL (4.50-10.00)
[2022-10-10] MEDS: CHOLESTYRAMINE (WITH SUGAR) 4 GM PACKET PO SCH ×3 (10:33→17:13)
--- NOTE | 2022-10-10 10:36 | P.PN ---
Subjective Patient is seen in follow-up for acute kidney injury on chronic kidney disease. Renal function improving. He has been voiding. Oral intake is improved. No chest pain or shortness of breath. Working with physical therapy. Feels weak. Vital signs are stable. General: No acute distress. HEENT: Head exam is unremarkable. LUNGS: No audible rhonchi or wheezes. HEART: Rate and Rhythm are regular. ABDOMEN: Abdominal exam nontender. EXTREMITITES: No edema. Objective - Vital Signs Vital signs: Vital Signs Temp 98.3 F 10/10/22 07:04 Pulse 65 10/10/22 07:04 Resp 18 10/10/22 08:44 BP 173/73 10/10/22 07:04 Pulse Ox 97 10/10/22 07:04 FiO2 Intake & Output 10/09/22 10/10/22 10/10/22 18:59 06:59 18:59 Intake Total 1500 Output Total 400 Balance 1500 -400 Intake: Intake, IV Titration 950 Amount Dextrose 5% in Water 1, 900 000 ml @ 75 mls/hr IV . [id number] TERESA with Sodium Bicarb (1 Meq/ml) 150 ml Rx#:[id number] cefTRIAXone 1 gm In 50 Sodium Chloride 0.9% 50 ml @ 100 mls/hr IVPB Q24HR TERESA Rx#:[id number] Oral 550 Output: Urine 400 Other: Voiding Method External Catheter Diaper Diaper External Catheter External Catheter # Voids 1 # Bowel Movements 1 1 - Labs CBC & Chem 7: 10/10/22 06:49 10/10/22 06:49 Labs: Abnormal Lab Results - Last 24 Hours (Table) 10/09/22 10/09/22 10/09/22 Range/Units 02:30 05:44 11:21 WBC 11.51 H (4.50-10.00) X 10*3/uL RBC 3.09 L (4.40-5.60) X 10*6/uL Hgb 8.9 L (12.0-15.0) d/dL Hct 28.3 L (39.6-50.0) % MCHC 31.4 L (32.0-37.0) d/dL RDW 15.7 H (11.5-14.5) % MPV (9.5-12.2) FL Neutrophils # (1.80-7.70) X 10*3/uL NRBC/100 WBC Diff 0.02 H (0.00-0.01) X 10*3/uL BUN 28.4 H (9.0-27.0) mg/dL Creatinine 2.3 H (0.6-1.5) mg/dL Est GFR (CKD-EPI) 30 L (>=60) BUN/Creatinine Ratio (12.00-20.00) Ratio Glucose 152 H (70-110) mg/dL POC Glucose (mg/dL) 192 H (70-110) mg/dL Calcium 8.1 L (8.7-10.3) mg/dL Total Bilirubin <0.2 L (0.3-1.2) mg/dL AST 36 H (14-35) U/L ALT 67 H (10-49) U/L Total Protein 4.8 L (6.2-8.2) d/dL Albumin 2.9 L (3.8-4.9) d/dL Albumin/Globulin Ratio 1.53 L (1.60-3.17) Ratio 10/09/22 10/09/22 10/10/22 Range/Units 16:23 20:30 05:34 WBC (4.50-10.00) X 10*3/uL RBC (4.40-5.60) X 10*6/uL Hgb (12.0-15.0) d/dL Hct (39.6-50.0) % MCHC (32.0-37.0) d/dL RDW (11.5-14.5) % MPV (9.5-12.2) FL Neutrophils # (1.80-7.70) X 10*3/uL NRBC/100 WBC Diff (0.00-0.01) X 10*3/uL BUN (9.0-27.0) mg/dL Creatinine (0.6-1.5) mg/dL Est GFR (CKD-EPI) (>=60) BUN/Creatinine Ratio (12.00-20.00) Ratio Glucose (70-110) mg/dL POC Glucose (mg/dL) 211 H 185 H 142 H (70-110) mg/dL Calcium (8.7-10.3) mg/dL Total Bilirubin (0.3-1.2) mg/dL AST (14-35) U/L ALT (10-49) U/L Total Protein (6.2-8.2) d/dL Albumin (3.8-4.9) d/dL Albumin/Globulin Ratio (1.60-3.17) Ratio 10/10/22 10/10/22 Range/Units 06:49 06:49 WBC 11.65 H (4.50-10.00) X 10*3/uL RBC 3.30 L (4.40-5.60) X 10*6/uL Hgb 9.7 L (12.0-15.0) d/dL Hct 29.9 L (39.6-50.0) % MCHC (32.0-37.0) d/dL RDW 15.5 H (11.5-14.5) % MPV 9.4 L (9.5-12.2) FL Neutrophils # 8.38 H (1.80-7.70) X 10*3/uL NRBC/100 WBC Diff 0.03 H (0.00-0.01) X 10*3/uL BUN (9.0-27.0) mg/dL Creatinine 2.0 H (0.6-1.5) mg/dL Est GFR (CKD-EPI) 35 L (>=60) BUN/Creatinine Ratio 10.70 L (12.00-20.00) Ratio Glucose 151 H (70-110) mg/dL POC Glucose (mg/dL) (70-110) mg/dL Calcium 8.3 L (8.7-10.3) mg/dL Total Bilirubin <0.2 L (0.3-1.2) mg/dL AST (14-35) U/L ALT (10-49) U/L Total Protein 5.0 L (6.2-8.2) d/dL Albumin 3.0 L (3.8-4.9) d/dL Albumin/Globulin Ratio 1.50 L (1.60-3.17) Ratio Microbiology - Last 24 Hours (Table) 10/06/22 19:44 Blood Culture - Preliminary Blood 10/06/22 19:20 Blood Culture - Preliminary Blood Assessment and Plan Plan: Assessment: 1. Acute kidney injury secondary to ATN secondary to hypotension. Creatinine 3.18 on admission - 2.0 today. No hydronephrosis noted on kidney ultrasound. 2. Chronic kidney disease stage IIIB with baseline creatinine 2.1-2.3 secondary to diabetic kidney disease. 3. Metabolic acidosis secondary to acute kidney injury and GI losses. Improving with bicarbonate drip. 4. Diabetes mellitus. 5. Hypertension with chronic kidney disease. Blood pressure on the higher side. 6. UTI s/p antibiotics. 7. Anemia of chronic kidney disease. Iron replete. On Aranesp. 8. C. diff on oral vancomycin. Plan: Hep-Lock IV fluids. Check orthostatic vital signs. Encourage oral intake. Avoid nephrotoxins. Continue to monitor renal function and urine output.
[2022-10-10 11:20] LABS: Glucose,Whole Blood 374 mg/dL (70-110)
--- NOTE | 2022-10-10 14:33 | P.PN ---
Subjective Progress Note Date: 10/10/22 patient is 67-year-old gentleman with past medical history significant for hypertension, hyperlipidemia, diabetes mellitus and the ER because of low blood pressure. Patient was sent in by his PCP for low blood pressure. Patient went for regular checkup and was found to have his blood pressure in the 80s. Patient stated that he has been on number of blood pressure medications and may be taking too much of those medications by accident. Patient has been combining of dizziness and feeling of passing out. Denies any fever or chills. Denies any nausea or vomiting. No complaint of recent falls. Because of low blood pressure, patient was sent to ER Initial lab work done in the ER showed WBC 16.8, he was benign 0.5, sodium 136, potassium 5.2, BUN 54, creatinine 3.18 Patient was admitted to medicine service 10/08. Patient seen and examined. Patient blood pressure elevated this morning, resume hydralazine and Norvasc. Complaining of diarrhea, that started yesterday night 10/09. Patient seen and examined. Stool for C. diff is positive. States diarrhea he has improved compared to yesterday 10/10. Patient seen and examined. Laying comfortably in the bed, diarrhea has resolved. REVIEW OF SYSTEMS: CONSTITUTIONAL: No fever, no malaise,. CARDIOVASCULAR: No chest pain, no palpitations, no syncope. PULMONARY: No shortness of breath, no cough, GASTROINTESTINAL: no nausea, no vomiting, no abdominal pain. NEUROLOGICAL: No headaches, no weakness, PHYSICAL EXAMINATION: GENERAL: The patient is alert and oriented x3, not in any acute distress. Well developed, well nourished. HEENT: Pupils are round and equally reacting to light. EOMI. No scleral icterus. No conjunctival pallor. Normocephalic, atraumatic. No pharyngeal erythema. No thyromegaly. CARDIOVASCULAR: S1 and S2 present. No murmurs, rubs, or gallops. PULMONARY: Chest is clear to auscultation, no wheezing or crackles. ABDOMEN: Soft, nontender, nondistended, normoactive bowel sounds. No palpable organomegaly. MUSCULOSKELETAL: No joint swelling or deformity. EXTREMITIES: No cyanosis, clubbing, or pedal edema. NEUROLOGICAL: Gross neurological examination did not reveal any focal deficits. SKIN: No rashes. Assessment and plan Hyperkalemia Acute on chronic kidney disease C. diff colitis UTI Hypertension Hyperlipidemia Monitor vital signs Monitor CBC Monitor CMP Check orthostatics Avoid nephrotoxic agents Continue oral vancomycin Continue cholestyramine Continue IV fluids Continue Norvasc and hydralazine, does of hydralazine increased 100 mg Follow-up on nephrology recommendations Labs and medication were reviewed.. Continue same treatment. Continue with symptomatic treatment. Resume home medication. Monitor labs and vitals. DVT and GI prophylaxis. Further recommendations as per clinical course of the patient Objective - Vital Signs Vital signs: Vital Signs Temp 98.3 F 10/10/22 07:04 Pulse 65 10/10/22 07:04 Resp 18 10/10/22 08:44 BP 173/73 10/10/22 07:04 Pulse Ox 97 10/10/22 07:04 FiO2 Intake & Output 10/09/22 10/10/22 10/10/22 18:59 06:59 18:59 Intake Total 1500 Output Total 400 Balance 1500 -400 Intake: Intake, IV Titration 950 Amount Dextrose 5% in Water 1, 900 000 ml @ 75 mls/hr IV . [id number] TERESA with Sodium Bicarb (1 Meq/ml) 150 ml Rx#:[id number] cefTRIAXone 1 gm In 50 Sodium Chloride 0.9% 50 ml @ 100 mls/hr IVPB Q24HR TERESA Rx#:[id number] Oral 550 Output: Urine 400 Other: Voiding Method External Catheter Diaper Diaper External Catheter External Catheter # Voids 1 # Bowel Movements 1 1 - Labs CBC & Chem 7: 10/10/22 06:49 10/10/22 06:49 Labs: Abnormal Lab Results - Last 24 Hours (Table) 10/09/22 10/09/22 10/09/22 Range/Units 02:30 05:44 11:21 WBC 11.51 H (4.50-10.00) X 10*3/uL RBC 3.09 L (4.40-5.60) X 10*6/uL Hgb 8.9 L (12.0-15.0) d/dL Hct 28.3 L (39.6-50.0) % MCHC 31.4 L (32.0-37.0) d/dL RDW 15.7 H (11.5-14.5) % NRBC/100 WBC Diff 0.02 H (0.00-0.01) X 10*3/uL BUN 28.4 H (9.0-27.0) mg/dL Creatinine 2.3 H (0.6-1.5) mg/dL Est GFR (CKD-EPI) 30 L (>=60) BUN/Creatinine Ratio (12.00-20.00) Ratio Glucose 152 H (70-110) mg/dL POC Glucose (mg/dL) 192 H (70-110) mg/dL Calcium 8.1 L (8.7-10.3) mg/dL Total Bilirubin <0.2 L (0.3-1.2) mg/dL AST 36 H (14-35) U/L ALT 67 H (10-49) U/L Total Protein 4.8 L (6.2-8.2) d/dL Albumin 2.9 L (3.8-4.9) d/dL Albumin/Globulin Ratio 1.53 L (1.60-3.17) Ratio 10/09/22 10/09/22 10/10/22 Range/Units 16:23 20:30 05:34 WBC (4.50-10.00) X 10*3/uL RBC (4.40-5.60) X 10*6/uL Hgb (12.0-15.0) d/dL Hct (39.6-50.0) % MCHC (32.0-37.0) d/dL RDW (11.5-14.5) % NRBC/100 WBC Diff (0.00-0.01) X 10*3/uL BUN (9.0-27.0) mg/dL Creatinine (0.6-1.5) mg/dL Est GFR (CKD-EPI) (>=60) BUN/Creatinine Ratio (12.00-20.00) Ratio Glucose (70-110) mg/dL POC Glucose (mg/dL) 211 H 185 H 142 H (70-110) mg/dL Calcium (8.7-10.3) mg/dL Total Bilirubin (0.3-1.2) mg/dL AST (14-35) U/L ALT (10-49) U/L Total Protein (6.2-8.2) d/dL Albumin (3.8-4.9) d/dL Albumin/Globulin Ratio (1.60-3.17) Ratio 10/10/22 Range/Units 06:49 WBC (4.50-10.00) X 10*3/uL RBC (4.40-5.60) X 10*6/uL Hgb (12.0-15.0) d/dL Hct (39.6-50.0) % MCHC (32.0-37.0) d/dL RDW (11.5-14.5) % NRBC/100 WBC Diff (0.00-0.01) X 10*3/uL BUN (9.0-27.0) mg/dL Creatinine 2.0 H (0.6-1.5) mg/dL Est GFR (CKD-EPI) 35 L (>=60) BUN/Creatinine Ratio 10.70 L (12.00-20.00) Ratio Glucose 151 H (70-110) mg/dL POC Glucose (mg/dL) (70-110) mg/dL Calcium 8.3 L (8.7-10.3) mg/dL Total Bilirubin <0.2 L (0.3-1.2) mg/dL AST (14-35) U/L ALT (10-49) U/L Total Protein 5.0 L (6.2-8.2) d/dL Albumin 3.0 L (3.8-4.9) d/dL Albumin/Globulin Ratio 1.50 L (1.60-3.17) Ratio Microbiology - Last 24 Hours (Table) 10/06/22 19:44 Blood Culture - Preliminary Blood 10/06/22 19:20 Blood Culture - Preliminary Blood
[2022-10-10 16:24] LABS: Glucose,Whole Blood 170 mg/dL (70-110)
[2022-10-10 20:48] LABS: Glucose,Whole Blood 158 mg/dL (70-110)
[2022-10-10] MEDS: EZETIMIBE 10 MG TAB PO SCH (21:31)
[2022-10-10] MEDS: ASPIRIN 81 MG PO SCH (21:31)
[2022-10-10] MEDS: SERTRALINE 50 MG TAB PO SCH (21:31)
[2022-10-10] MEDS: FENOFIBRATE 160 MG TAB PO SCH (21:31)
[2022-10-10] MEDS: allopurinoL 100 MG TAB PO SCH (21:31)
[2022-10-10] MEDS: ATORVASTATIN 80 MG TAB PO SCH (21:32)
[2022-10-10] MEDS: DONEPEZIL 5 MG TAB PO SCH (21:32)
[2022-10-11 06:04] LABS: Glucose,Whole Blood 119 mg/dL (70-110)
[2022-10-11] MEDS: INSULIN ASPART (NovoLOG) 100 UNIT/ML VIAL SQ SCH ×4 (06:06→21:22)
[2022-10-11] MEDS: TICAGRELOR 90 MG TAB PO SCH ×2 (08:55→20:43)
[2022-10-11] MEDS: FOLIC ACID 1 MG TAB PO SCH (08:55)
[2022-10-11] MEDS: ARIPiprazole 5 MG TAB PO SCH (08:55)
[2022-10-11] MEDS: hydrALAZINE HCL 50 MG TAB PO SCH ×3 (08:55→20:42)
[2022-10-11] MEDS: VANCOMYCIN 125 MG CAPSULE PO SCH ×4 (08:55→20:43)
[2022-10-11] MEDS: METOPROLOL SUCCINATE (ER) 25 MG TAB.ER.24H PO SCH ×2 (08:55→20:43)
[2022-10-11] MEDS: amLODIPine 10 MG TAB PO SCH (08:55)
[2022-10-11] MEDS: SODIUM BICARBONATE TAB 650 MG TAB PO SCH ×3 (08:56→20:43)
[2022-10-11] MEDS: CYANOCOBALAMIN 500 MCG TAB PO SCH (08:56)
[2022-10-11] MEDS: CHOLESTYRAMINE (WITH SUGAR) 4 GM PACKET PO SCH ×3 (10:13→18:23)
[2022-10-11 11:33] LABS: Glucose,Whole Blood 199 mg/dL (70-110)
--- NOTE | 2022-10-11 11:48 | P.PN ---
Subjective Patient is seen in follow-up for acute kidney injury on chronic kidney disease. Renal function improving. Creatinine 2.0 yesterday. He has been voiding. Oral intake is improved. No chest pain or shortness of breath. Feels weak. Orthostatics negative. Vital signs are stable. General: No acute distress. HEENT: Head exam is unremarkable. LUNGS: No audible rhonchi or wheezes. HEART: Rate and Rhythm are regular. ABDOMEN: Abdominal exam nontender. EXTREMITITES: No edema. Objective - Vital Signs Vital signs: Vital Signs Temp 98.4 F 10/11/22 07:35 Pulse 61 10/11/22 07:35 Resp 17 10/11/22 07:35 BP 170/79 10/11/22 07:35 Pulse Ox 97 10/11/22 07:35 FiO2 Intake & Output 10/10/22 10/11/22 10/11/22 18:59 06:59 18:59 Output Total 1100 1000 Balance -1100 -1000 Output: Urine 1100 1000 Other: Voiding Method Diaper Diaper Diaper External Catheter External Catheter External Catheter # Bowel Movements 3 2 - Labs CBC & Chem 7: 10/10/22 06:49 10/10/22 06:49 Labs: Abnormal Lab Results - Last 24 Hours (Table) 10/10/22 10/10/22 10/11/22 Range/Units 16:22 20:43 05:58 POC Glucose (mg/dL) 170 H 158 H 119 H (70-110) mg/dL 10/11/22 Range/Units 11:32 POC Glucose (mg/dL) 199 H (70-110) mg/dL Assessment and Plan Plan: Assessment: 1. Acute kidney injury secondary to ATN secondary to hypotension. Creatinine 3.18 on admission - 2.0 yesterday. No hydronephrosis noted on kidney ultrasound. 2. Chronic kidney disease stage IIIB with baseline creatinine 2.1-2.3 secondary to diabetic kidney disease. 3. Metabolic acidosis secondary to acute kidney injury and GI losses. Improving with bicarbonate drip. 4. Diabetes mellitus. 5. Hypertension with chronic kidney disease. Blood pressure on the higher side. 6. UTI s/p antibiotics. 7. Anemia of chronic kidney disease. Iron replete. On Aranesp. 8. C. diff on oral vancomycin. Plan: Resume home dose prazosin. Add low-dose losartan. Encourage oral intake. Avoid nephrotoxins. Continue to monitor renal function and urine output.
[2022-10-11] MEDS: LOSARTAN 25 MG TAB PO SCH (12:28)
--- NOTE | 2022-10-11 14:00 | P.PN ---
Subjective Progress Note Date: 10/11/22 patient is 67-year-old gentleman with past medical history significant for hypertension, hyperlipidemia, diabetes mellitus and the ER because of low blood pressure. Patient was sent in by his PCP for low blood pressure. Patient went for regular checkup and was found to have his blood pressure in the 80s. Patient stated that he has been on number of blood pressure medications and may be taking too much of those medications by accident. Patient has been combining of dizziness and feeling of passing out. Denies any fever or chills. Denies any nausea or vomiting. No complaint of recent falls. Because of low blood pressure, patient was sent to ER Initial lab work done in the ER showed WBC 16.8, he was benign 0.5, sodium 136, potassium 5.2, BUN 54, creatinine 3.18 Patient was admitted to medicine service 10/08. Patient seen and examined. Patient blood pressure elevated this morning, resume hydralazine and Norvasc. Complaining of diarrhea, that started yesterday night 10/09. Patient seen and examined. Stool for C. diff is positive. States diarrhea he has improved compared to yesterday 10/10. Patient seen and examined. Laying comfortably in the bed, diarrhea has resolved. 10/11. Patient seen and examined. Blood pressure elevated, losartan resumed. REVIEW OF SYSTEMS: CONSTITUTIONAL: No fever, no malaise,. CARDIOVASCULAR: No chest pain, no palpitations, no syncope. PULMONARY: No shortness of breath, no cough, GASTROINTESTINAL: no nausea, no vomiting, no abdominal pain. NEUROLOGICAL: No headaches, no weakness, PHYSICAL EXAMINATION: GENERAL: The patient is alert and oriented x3, not in any acute distress. Well developed, well nourished. HEENT: Pupils are round and equally reacting to light. EOMI. No scleral icterus. No conjunctival pallor. Normocephalic, atraumatic. No pharyngeal erythema. No thyromegaly. CARDIOVASCULAR: S1 and S2 present. No murmurs, rubs, or gallops. PULMONARY: Chest is clear to auscultation, no wheezing or crackles. ABDOMEN: Soft, nontender, nondistended, normoactive bowel sounds. No palpable organomegaly. MUSCULOSKELETAL: No joint swelling or deformity. EXTREMITIES: No cyanosis, clubbing, or pedal edema. NEUROLOGICAL: Gross neurological examination did not reveal any focal deficits. SKIN: No rashes. Assessment and plan Hyperkalemia Acute on chronic kidney disease C. diff colitis UTI Hypertension Hyperlipidemia Monitor vital signs Monitor CBC Monitor CMP Check orthostatics Avoid nephrotoxic agents Continue oral vancomycin Continue cholestyramine Continue Norvasc and hydralazine. Resumed losartan and prazosin Follow-up on nephrology recommendations Labs and medication were reviewed.. Continue same treatment. Continue with symptomatic treatment. Resume home medication. Monitor labs and vitals. DVT and GI prophylaxis. Further recommendations as per clinical course of the patient Objective - Vital Signs Vital signs: Vital Signs Temp 98.4 F 10/11/22 07:35 Pulse 61 10/11/22 07:35 Resp 17 10/11/22 07:35 BP 170/79 10/11/22 07:35 Pulse Ox 97 10/11/22 07:35 FiO2 Intake & Output 10/10/22 10/11/22 10/11/22 18:59 06:59 18:59 Output Total 1100 1000 Balance -1100 -1000 Output: Urine 1100 1000 Other: Voiding Method Diaper Diaper Diaper External Catheter External Catheter External Catheter # Bowel Movements 3 2 - Labs CBC & Chem 7: 10/10/22 06:49 10/10/22 06:49 Labs: Abnormal Lab Results - Last 24 Hours (Table) 10/10/22 10/10/22 10/10/22 Range/Units 11:19 16:22 20:43 POC Glucose (mg/dL) 374 H 170 H 158 H (70-110) mg/dL 10/11/22 Range/Units 05:58 POC Glucose (mg/dL) 119 H (70-110) mg/dL
[2022-10-11 16:21] LABS: Glucose,Whole Blood 231 mg/dL (70-110)
[2022-10-11] MEDS: ASPIRIN 81 MG PO SCH (20:42)
[2022-10-11] MEDS: FENOFIBRATE 160 MG TAB PO SCH (20:42)
[2022-10-11] MEDS: ATORVASTATIN 80 MG TAB PO SCH (20:42)
[2022-10-11] MEDS: SERTRALINE 50 MG TAB PO SCH (20:42)
[2022-10-11] MEDS: allopurinoL 100 MG TAB PO SCH (20:43)
[2022-10-11] MEDS: EZETIMIBE 10 MG TAB PO SCH (20:43)
[2022-10-11] MEDS: DONEPEZIL 5 MG TAB PO SCH (20:43)
[2022-10-11 20:54] LABS: Glucose,Whole Blood 208 mg/dL (70-110)
[2022-10-11] MEDS ORDERED: PANTOPRAZOLE 40 MG/10 ML VIAL ONE (21:19)
[2022-10-12 05:44] LABS: Glucose,Whole Blood 129 mg/dL (70-110)
[2022-10-12] MEDS: INSULIN ASPART (NovoLOG) 100 UNIT/ML VIAL SQ SCH ×2 (05:50→12:26)
[2022-10-12 08:36] VITALS: BP 158/76; PULSE 59; RESP 15; TEMP 97.8
[2022-10-12] MEDS: amLODIPine 10 MG TAB PO SCH (08:50)
[2022-10-12] MEDS: LOSARTAN 25 MG TAB PO SCH (08:50)
[2022-10-12] MEDS: SODIUM BICARBONATE TAB 650 MG TAB PO SCH (08:50)
[2022-10-12] MEDS: FOLIC ACID 1 MG TAB PO SCH (08:50)
[2022-10-12] MEDS: ARIPiprazole 5 MG TAB PO SCH (08:52)
[2022-10-12] MEDS: hydrALAZINE HCL 50 MG TAB PO SCH (08:52)
[2022-10-12] MEDS: CYANOCOBALAMIN 500 MCG TAB PO SCH (08:53)
[2022-10-12] MEDS: VANCOMYCIN 125 MG CAPSULE PO SCH ×2 (08:53→12:27)
[2022-10-12] MEDS: TICAGRELOR 90 MG TAB PO SCH (08:53)
[2022-10-12] MEDS ORDERED: PRAZOSIN 1 MG CAP PO SCH (09:00)
[2022-10-12] MEDS: METOPROLOL SUCCINATE (ER) 25 MG TAB.ER.24H PO SCH (09:05)
[2022-10-12] MEDS: CHOLESTYRAMINE (WITH SUGAR) 4 GM PACKET PO SCH ×2 (09:06→13:08)
[2022-10-12 11:33] LABS: Glucose,Whole Blood 179 mg/dL (70-110)
[2022-10-12 11:54] LABS: Basophils # (A) 0.07 X 10*3/uL (0.00-0.10); Basophils % (A) 0.5 %; Eosinophils # (A) 0.26 X 10*3/uL (0.04-0.35); Eosinophils % (A) 1.8 %; HCT 32.1 % (39.6-50.0); HGB 10.1 d/dL (12.0-15.0); Lymphocytes # (A) 1.38 X 10*3/uL (0.90-5.00); Lymphocytes % (A) 9.4 %; MCH 29.4 pg (27.0-32.0); MCHC 31.5 d/dL (32.0-37.0); MCV 93.3 FL (80.0-97.0); Mean Platelet Volume 9.4 FL (9.5-12.2); Monocytes # (A) 0.95 X 10*3/uL (0.20-1.00); Monocytes % (A) 6.4 %; NRBC Per 100 WBC 0.05 X 10*3/uL (0.00-0.01); Neutrophils # (A) 11.83 X 10*3/uL (1.80-7.70); Neutrophils % (A) 80.2 %; Platelet Count 271 X 10*3/uL (140-440); RBC 3.44 X 10*6/uL (4.40-5.60); RDW 15.4 % (11.5-14.5); WBC 14.74 X 10*3/uL (4.50-10.00)
[2022-10-12 12:25] LABS: BUN/Creat Ratio 11.21 Ratio (12.00-20.00); Blood Urea Nitrogen 26.9 mg/dL (9.0-27.0); Calcium 8.6 mg/dL (8.7-10.3); Carbon Dioxide 24.4 mmol/L (21.6-31.8); Chloride 104 mmol/L (96-109); Glucose 123 mg/dL (70-110); Magnesium 1.9 mg/dL (1.5-2.4); Potassium 5.3 mmol/L (3.5-5.5); Sodium 139 mmol/L (135-145)
--- NOTE | 2022-10-12 13:01 | P.PN ---
Subjective Patient is seen for follow-up for acute kidney injury and top of chronic kidney disease. Baseline creatinine about 2.2-2.5 mg/dL. Serum creatinine at 2.4 today. Peak creatinine 3.1 on initial admission. Currently not on IV fluids or diuretics. No significant complaints today and Maintained on oral vancomycin for C. diff colitis. Continues to have diarrhea. Objective - Vital Signs Vital signs: Vital Signs Temp 97.8 F 10/12/22 08:35 Pulse 59 L 10/12/22 09:39 Resp 15 10/12/22 08:35 BP 158/76 10/12/22 08:35 Pulse Ox 97 10/12/22 08:35 FiO2 Intake & Output 10/11/22 10/12/22 10/12/22 18:59 06:59 18:59 Output Total 500 200 Balance -500 -200 Output: Urine 500 200 Other: Voiding Method Diaper Urinal External Catheter Diaper # Voids 4 4 # Bowel Movements 2 2 - Exam Awake, comfortable, no acute distress Examination of the heart S1 and S2 Examination of the lungs 60s breath sounds at the bases Examination of lower extremities shows no significant edema TICKET CLERK exam grossly intact - Labs CBC & Chem 7: 10/12/22 06:13 10/12/22 06:13 Labs: Abnormal Lab Results - Last 24 Hours (Table) 10/11/22 10/11/22 10/12/22 Range/Units 16:19 20:52 05:40 WBC (4.50-10.00) X 10*3/uL RBC (4.40-5.60) X 10*6/uL Hgb (12.0-15.0) d/dL Hct (39.6-50.0) % MCHC (32.0-37.0) d/dL RDW (11.5-14.5) % MPV (9.5-12.2) FL Neutrophils # (1.80-7.70) X 10*3/uL NRBC/100 WBC Diff (0.00-0.01) X 10*3/uL Creatinine (0.6-1.5) mg/dL Est GFR (CKD-EPI) (>=60) BUN/Creatinine Ratio (12.00-20.00) Ratio Glucose (70-110) mg/dL POC Glucose (mg/dL) 231 H 208 H 129 H (70-110) mg/dL Calcium (8.7-10.3) mg/dL 10/12/22 10/12/22 10/12/22 Range/Units 06:13 06:13 11:32 WBC 14.74 H (4.50-10.00) X 10*3/uL RBC 3.44 L (4.40-5.60) X 10*6/uL Hgb 10.1 L (12.0-15.0) d/dL Hct 32.1 L (39.6-50.0) % MCHC 31.5 L (32.0-37.0) d/dL RDW 15.4 H (11.5-14.5) % MPV 9.4 L (9.5-12.2) FL Neutrophils # 11.83 H (1.80-7.70) X 10*3/uL NRBC/100 WBC Diff 0.05 H (0.00-0.01) X 10*3/uL Creatinine 2.4 H (0.6-1.5) mg/dL Est GFR (CKD-EPI) 28 L (>=60) BUN/Creatinine Ratio 11.21 L (12.00-20.00) Ratio Glucose 123 H (70-110) mg/dL POC Glucose (mg/dL) 179 H (70-110) mg/dL Calcium 8.6 L (8.7-10.3) mg/dL Microbiology - Last 24 Hours (Table) 10/06/22 19:44 Blood Culture - Final Blood 10/06/22 19:20 Blood Culture - Final Blood Assessment and Plan Assessment: 1. Acute kidney injury secondary to ATN secondary to hypotension. Creatinine 3.18 on admission - 2.4 today. No hydronephrosis noted on kidney ultrasound. 2. Chronic kidney disease stage IIIB with baseline creatinine 2.2-2.5 secondary to diabetic kidney disease. 3. Metabolic acidosis secondary to acute kidney injury and GI losses. Improving with bicarbonate drip. 4. Diabetes mellitus. 5. Hypertension with chronic kidney disease. Blood pressure on the higher side. 6. UTI s/p antibiotics. 7. Anemia of chronic kidney disease. Iron replete. On Aranesp. 8. C. diff on oral vancomycin. Plan: Continue with losartan Repeat labs in a.m. Continue with oral vancomycin
--- NOTE | 2022-10-12 13:50 | P.DS ---
Providers Date of admission: 10/12/22 08:18 Expected date of discharge: 10/12/22 Attending physician: Irina Rodriguez Consults: 10/07/22 10:46 Consult Physician Routine Consulting Provider: Shiv Lester Consult Reason/Comments: Acute on chronic kidney disease Do you want consulting provider notified?: Yes Primary care physician: [place] Hospital Course: Discharge diagnoses; Hyperkalemia Acute on chronic kidney disease C. diff colitis UTI Hypertension Hyperlipidemia Hospital course; patient is 67-year-old gentleman with past medical history significant for hypertension, hyperlipidemia, diabetes mellitus and the ER because of low blood pressure. Patient was sent in by his PCP for low blood pressure. Patient went for regular checkup and was found to have his blood pressure in the 80s. Patient stated that he has been on number of blood pressure medications and may be taking too much of those medications by accident. Patient has been combining of dizziness and feeling of passing out. Denies any fever or chills. Denies any nausea or vomiting. No complaint of recent falls. Because of low blood pressure, patient was sent to ER Initial lab work done in the ER showed WBC 16.8, he was benign 0.5, sodium 136, potassium 5.2, BUN 54, creatinine 3.18 Patient was admitted to medicine service 10/08. Patient seen and examined. Patient blood pressure elevated this morning, resume hydralazine and Norvasc. Complaining of diarrhea, that started yesterday night 10/09. Patient seen and examined. Stool for C. diff is positive. States diarrhea he has improved compared to yesterday 10/10. Patient seen and examined. Laying comfortably in the bed, diarrhea has resolved. 10/11. Patient seen and examined. Blood pressure elevated, losartan resumed. 10/12. Patient seen and examined. Blood pressure improved, being discharged on oral vancomycin for 7 days. Losartan resumed by nephrology blood pressure medication adjusted. PHYSICAL EXAMINATION: GENERAL: The patient is alert and oriented x3, not in any acute distress. Well developed, well nourished. HEENT: Pupils are round and equally reacting to light. EOMI. No scleral icterus. No conjunctival pallor. Normocephalic, atraumatic. No pharyngeal erythema. No thyromegaly. CARDIOVASCULAR: S1 and S2 present. No murmurs, rubs, or gallops. PULMONARY: Chest is clear to auscultation, no wheezing or crackles. ABDOMEN: Soft, nontender, nondistended, normoactive bowel sounds. No palpable organomegaly. MUSCULOSKELETAL: No joint swelling or deformity. EXTREMITIES: No cyanosis, clubbing, or pedal edema. NEUROLOGICAL: Gross neurological examination did not reveal any focal deficits. SKIN: No rashes. Patient Condition at Discharge: Stable Plan - Discharge Summary Discharge Rx Participant: No New Discharge Prescriptions: New hydrALAZINE HCL [Apresoline] 100 mg PO TID #60 tab Losartan [Cozaar] 25 mg PO DAILY #30 tab Cholestyramine (with Sugar) [Questran Packet] 4 gm PO TID BETWEEN MEALS 7 Days #21 packet Metoprolol Succinate (ER) [Toprol XL] 25 mg PO BID #30 tab Vancomycin 125 mg PO QID 7 Days #28 cap Continue Aspirin [Adult Low Dose Aspirin EC] 81 mg PO HS allopurinoL [Zyloprim] 100 mg PO HS Fenofibrate Nanocrystallized [Fenofibrate] 145 mg PO HS Ezetimibe [Zetia] 10 mg PO HS Atorvastatin [Lipitor] 80 mg PO HS Dapagliflozin Propanediol [Farxiga] 5 mg PO HS Ergocalciferol (Vitamin D2) [Drisdol (50,000 Iu)] 1,250 mcg PO Q7D Meclizine [Antivert] 12.5 mg PO TID PRN PRN Reason: Vertigo ARIPiprazole [Abilify] 5 mg PO DAILY Folic Acid 0.5 mg PO DAILY #15 tab amLODIPine [Norvasc] 10 mg PO HS tadalafiL 20 mg PO DAILY Prazosin HCl 2 mg PO HS Sertraline [Zoloft] 50 mg PO HS Donepezil [Aricept] 5 mg PO HS Ticagrelor [Brilinta] 90 mg PO BID 30 Days #60 tab Sodium Bicarbonate Tab 650 mg PO TID #90 tab Cyanocobalamin [Vitamin B-12] 500 mcg PO DAILY #30 tab Turmeric Root Extract [Turmeric] 500 mg PO DAILY Discontinued carvediloL [Coreg*] 25 mg PO DAILY hydrALAZINE HCL [Apresoline] 50 mg PO TID #90 tab Cephalexin [Keflex] 500 mg PO BID Discharge Medication List Aspirin [Adult Low Dose Aspirin EC] 81 mg PO HS 01/26/17 [History] Fenofibrate Nanocrystallized [Fenofibrate] 145 mg PO HS 09/01/18 [History] allopurinoL [Zyloprim] 100 mg PO HS 09/01/18 [History] Atorvastatin [Lipitor] 80 mg PO HS 05/16/21 [History] Ezetimibe [Zetia] 10 mg PO HS 05/16/21 [History] Dapagliflozin Propanediol [Farxiga] 5 mg PO HS 07/10/22 [History] Ergocalciferol (Vitamin D2) [Drisdol (50,000 Iu)] 1,250 mcg PO Q7D 07/10/22 [History] Prazosin HCl 2 mg PO HS 07/10/22 [History] Sertraline [Zoloft] 50 mg PO HS 07/10/22 [History] ARIPiprazole [Abilify] 5 mg PO DAILY 08/29/22 [History] Donepezil [Aricept] 5 mg PO HS 08/29/22 [History] Meclizine [Antivert] 12.5 mg PO TID PRN 08/29/22 [History] Cyanocobalamin [Vitamin B-12] 500 mcg PO DAILY #30 tab 09/04/22 [Rx] Folic Acid 0.5 mg PO DAILY #15 tab 09/04/22 [Rx] Sodium Bicarbonate Tab 650 mg PO TID #90 tab 09/04/22 [Rx] Ticagrelor [Brilinta] 90 mg PO BID 30 Days #60 tab 09/04/22 [Rx] Turmeric Root Extract [Turmeric] 500 mg PO DAILY 10/06/22 [History] amLODIPine [Norvasc] 10 mg PO HS 10/06/22 [History] tadalafiL 20 mg PO DAILY 10/06/22 [History] Cholestyramine (with Sugar) [Questran Packet] 4 gm PO TID BETWEEN MEALS 7 Days #21 packet 10/12/22 [Rx] Losartan [Cozaar] 25 mg PO DAILY #30 tab 10/12/22 [Rx] Metoprolol Succinate (ER) [Toprol XL] 25 mg PO BID #30 tab 10/12/22 [Rx] Vancomycin 125 mg PO QID 7 Days #28 cap 10/12/22 [Rx] hydrALAZINE HCL [Apresoline] 100 mg PO TID #60 tab 10/12/22 [Rx] Follow up Appointment(s)/Referral(s): Ashok Hidalgo MD [Primary Care Provider] - 1-2 days [facility] Visiting Nurse, [NON-STAFF] - As Needed Alina Montenegro MD [STAFF PHYSICIAN] - 1 Week Discharge/Stand Alone Forms: Community Resources, Help In The Home, Personal Anime Designer Discharge Disposition: HOME WITH HOME HEALTH SERVICES
== END 2022-10-12 15:06 | disposition home health service (06) | DRG 640 ==
LOC: EC 14:37 → 4SSUR 18:57 → OBSVTOIN 10-12 08:18
PROVIDERS: ADMIT Internal Medicine; ATTEND Internal Medicine
DX: E87.5 Hyperkalemia (principal); N17.0 Acute kidney failure with tubular necrosis; A04.72 Enterocolitis due to Clostridium difficile, not specified as recurrent; I13.0 Hypertensive heart and chronic kidney disease with heart failure and stage 1 through stage 4 chronic kidney disease, or unspecified chronic kidney disease; N39.0 Urinary tract infection, site not specified; I95.9 Hypotension, unspecified; D63.1 Anemia in chronic kidney disease; E11.22 Type 2 diabetes mellitus with diabetic chronic kidney disease; E78.5 Hyperlipidemia, unspecified; F17.210 Nicotine dependence, cigarettes, uncomplicated; F32.A Depression, unspecified; F41.9 Anxiety disorder, unspecified; I25.10 Atherosclerotic heart disease of native coronary artery without angina pectoris; J44.9 Chronic obstructive pulmonary disease, unspecified; M19.90 Unspecified osteoarthritis, unspecified site; Z86.73 Personal history of transient ischemic attack (TIA), and cerebral infarction without residual deficits; I50.9 Heart failure, unspecified; E87.20 Acidosis, unspecified; N18.32 Chronic kidney disease, stage 3b; Z79.02 Long term (current) use of antithrombotics/antiplatelets; Z79.82 Long term (current) use of aspirin; Z79.899 Other long term (current) drug therapy; Z95.1 Presence of aortocoronary bypass graft; Z96.643 Presence of artificial hip joint, bilateral; Z82.49 Family history of ischemic heart disease and other diseases of the circulatory system
CPT/HCPCS: 36415; 71046; 76770; 80048; 80053; 81001; 82088; 82570; 82728; 83036; 83540; 83550; 83735; 83835; 83935; 84244; 84300; 85025; 85027; 87040; 87324; 93005; 96361; 96374; 99285

== ENCOUNTER 2024-06-01 09:47 | Inpatient (IN) | payer MEDICARE ==
[2024-06-01] MEDS: DILTIAZEM 125 MG in SODIUM CHLORIDE 0.9% 100 ML IV SCH (11:00)
[2024-06-01] MEDS: DILTIAZEM DRIP BOLUS FROM BAG 1 MG SOLN IV ONE (11:01)
[2024-06-01] MEDS: SODIUM CHLORIDE 0.9% 500 ML 500 ML IV ONE (11:01)
[2024-06-01] MEDS: PANTOPRAZOLE 40 MG/10 ML VIAL IVP STA (11:04)
--- NOTE | 2024-06-01 11:07 | ED ---
General Adult HPI - General Chief complaint: Altered Mental Status Stated complaint: GI bleed Time Seen by Provider: 06/01/24 09:48 Source: patient, EMS, RN notes reviewed, old records reviewed Mode of arrival: EMS Limitations: no limitations - History of Present Illness Initial comments: 68-year-old male presenting for evaluation of failure to thrive, vomiting, dark stool. Patient has history of CAD, chronic kidney disease, CHF. Apparently the patient has been off of his medications for 1 month. He states he is going to and does not want to take his medications any longer. He was told that he needs to go on dialysis but is currently refusing dialysis. He states that he has had vomiting and diarrhea for the past 24 to 48 hours diarrhea was noted to be black. - Related Data Home Medications Medication Instructions Recorded Confirmed No Known Home Medications 06/01/24 06/01/24 Allergies Allergy/AdvReac Type Severity Reaction Status Date / Time No Known Allergies Allergy Verified 06/01/24 12:17 Review of Systems ROS Statement: Those systems with pertinent positive or pertinent negative responses have been documented in the HPI. ROS Other: All systems not noted in ROS Statement are negative. Past Medical History Past Medical History: Coronary Artery Disease (CAD), Chest Pain / Angina, Heart Failure, COPD, CVA/TIA, Diabetes Mellitus, Hyperlipidemia, Hypertension, Osteoarthritis (OA), Prostate Disorder, Renal Disease, Sleep Apnea/CPAP/BIPAP, Supraventricular Tachycardia (SVT), Syncope, Vascular Disorder Additional Past Medical History / Comment(s): BACK PAIN , CVA 2013 and TIA 2014- short-term memory problems, rt side still slightly weaker , hx occ double vision & vertigo, tinnitus., sleep apnea (no machine), states kidney disease , uses cane states .,wears continues glucose monitor on abd.,, urine incontinence - wears pads. stroke 09/18 History of Any Multi-Drug Resistant Organisms: None Reported Past Surgical History: Appendectomy, Coronary Bypass/CABG, Heart Catheterization, Hernia Repair, Joint Replacement Additional Past Surgical History / Comment(s): RIGHT HIP REPLACEMENT 2002. Left hip arthroplasty anterior approach 09/09/2018. Quadruple Bypass . Past Anesthesia/Blood Transfusion Reactions: No Reported Reaction Past Psychological History: Anxiety, Depression Smoking Status: Former smoker Past Alcohol Use History: Rare Past Drug Use History: Marijuana - Past Family History Father Family Medical History: Myocardial Infarction (NE) Mother Family Medical History: Coronary Artery Disease (CAD) Daughter(s) Family Medical History: No Reported History Son(s) Family Medical History: No Reported History General Exam Limitations: no limitations General appearance: alert, in no apparent distress Head exam: Present: atraumatic, normocephalic Eye exam: Present: normal appearance, PERRL ENT exam: Present: mucous membranes dry Neck exam: Present: normal inspection. Absent: tenderness, meningismus Respiratory exam: Present: normal lung sounds bilaterally. Absent: respiratory distress, wheezes Cardiovascular Exam: Present: tachycardia, irregular rhythm GI/Abdominal exam: Present: soft. Absent: distended, tenderness Rectal exam: Present: bloody stool Extremities exam: Present: normal capillary refill. Absent: pedal edema Neurological exam: Present: alert, oriented X3, CN II-XII intact. Absent: motor sensory deficit Psychiatric exam: Present: depressed Skin exam: Present: warm, dry Course Vital Signs 06/01/24 06/01/24 09:49 10:45 Temperature 97.4 F L Pulse Rate 156 H 105 H Respiratory 22 22 Rate Blood Pressure 128/97 102/86 O2 Sat by Pulse 99 100 Oximetry Medical Decision Making - Medical Decision Making Was pt. sent in by a medical professional or institution (, PA, RETURN TO SERVICE INSPECTOR, urgent care, hospital, or intermediate...) When possible be specific @ -No Did you speak to anyone other than the patient for history (EMS, parent, family, police, friend...)? What history was obtained from this source @ -No Did you review nursing and triage notes (agree or disagree)? Why? @ -I reviewed and agree with nursing and triage notes Were old charts reviewed (outside hosp., previous admission, EMS record, old EKG, old radiological studies, urgent care reports/EKG's, intermediate records)? Report findings @ -No old charts were reviewed Differential Weakness: Hypoglycemia, shock, sepsis, hyponatremia, anemia, infection, NE, ETOH, adverse medicine reaction, overdose, stroke, this is not meant to be an all-inclusive list. EKG interpreted by me (3pts min.). @Atrial fibrillation rate of 143, QRS duration 98, QTc [address] segment elevation. X-rays interpreted by me (1pt min.). @ -[Chest x-ray clear, no signs of CHF CT interpreted by me (1pt min.). @ -None done U/S interpreted by me (1pt. min.). @ -None done What testing was considered but not performed or refused? (CT, X-rays, U/S, labs)? Why? @ -None What meds were considered but not given or refused? Why? @ -None Did you discuss the management of the patient with other professionals (professionals i.e. Dr., PA, RETURN TO SERVICE INSPECTOR, lab, RT, psych nurse, social contact worker, lab rn, teacher, ground defence officer, counseling case manager)? Give summary @ -[facility], and Dr. Montenegro Was smoking cessation discussed for >3mins.? @ -No Was critical care preformed (if so, how long)? @Yes 35 minutes Were there social determinants of health that impacted care today? How? (Homelessness, low income, unemployed, alcoholism, drug addiction, transportation, low edu. Level, literacy, decrease access to med. care, alf, rehab)? @ -No Was there de-escalation of care discussed even if they declined (Discuss DNR or withdrawal of care, Hospice)? DNR status @ -No What co-morbidities impacted this encounter? (DM, HTN, Smoking, COPD, CAD, Cancer, CVA, ARF, Chemo, Hep., AIDS, mental health diagnosis, sleep apnea, morbid obesity)? @ -[Chronic kidney disease, atrial fibrillation, congestive heart failure, diabetes. Was patient admitted / discharged? Hospital course, mention meds given and route, prescriptions, significant lab abnormalities, going to OR and other pertinent info. @ -68-year-old male presenting with multiple concurrent issues, A-fib with RVR, melanotic stool, elevated blood sugar, acute on chronic renal failure. Patient has intentionally been off of his medications for the past 1 month. He has had consultation scheduled with transplant service as well as vascular surgery for possibility of hemodialysis. Today the patient is refused all further medical care including hemodialysis. Today his BUN is 130 creatinine is elevated. He is acidotic with a CO2 of 7. He has mildly elevated troponin which is likely from the demand from A-fib with RVR. He also had melanotic stool. He is treated with IV Protonix. He is anemic but he has a stable hemoglobin compared to prior. I did discuss case with Dr. Lan kohli for nephrology. She will see the patient in consultation, medications have been ordered including bicarb drip repeat potassium has been ordered, results pending. Patient wishes to be a DNR. He will be admitted to [facility]. Undiagnosed new problem with uncertain prognosis? @ -[No Drug Therapy requiring intensive monitoring for toxicity (Heparin, Nitro, Insuli n, Cardizem)? @ -No Were any procedures done? @ -No Diagnosis/symptom? @ -Acute on chronic renal failure, atrial fibrillation with RVR, suspected upper GI bleed with chronic anemia, troponin elevation Acute, or Chronic, or Acute on Chronic? @Acute on chronic Uncomplicated (without systemic symptoms) or Complicated (systemic symptoms)? @ -Complicated Side effects of treatment? @ -No Exacerbation, Progression, or Severe Exacerbation? @ -No Poses a threat to life or bodily function? How? (Chest pain, USA, NE, pneumonia, PE, COPD, DKA, ARF, appy, cholecystitis, CVA, Diverticulitis, Homicidal, Suicidal, threat to staff... and all critical care pts) @ -Yes, arrhythmia, hemorrhagic shock, renal failure - Lab Data Result diagrams: 06/01/24 10:50 06/01/24 10:50 Lab Results 06/01/24 06/01/24 06/01/24 Range/Units 10:50 10:50 10:50 WBC 11.6 H (3.8-10.6) k/uL RBC 2.85 L (4.30-5.90) m/uL Hgb 8.4 L (13.0-17.5) gm/dL Hct 27.0 L (39.0-53.0) % MCV 94.7 (80.0-100.0) fL MCH 29.4 (25.0-35.0) pg MCHC 31.0 (31.0-37.0) g/dL RDW 14.9 (11.5-15.5) % Plt Count 150 (150-450) k/uL MPV 8.4 Neutrophils % 84 % Lymphocytes % 6 % Monocytes % 6 % Eosinophils % 0 % Basophils % 0 % Neutrophils # 9.8 H (1.3-7.7) k/uL Lymphocytes # 0.7 L (1.0-4.8) k/uL Monocytes # 0.7 (0-1.0) k/uL Eosinophils # 0.0 (0-0.7) k/uL Basophils # 0.0 (0-0.2) k/uL Hypochromasia Marked PT 11.9 (10.0-12.5) sec INR 1.1 (<1.2) APTT 24.6 (22.0-30.0) sec Sodium 133 L (137-145) mmol/L Potassium 6.9 H* (3.5-5.1) mmol/L Chloride 110 H (98-107) mmol/L Carbon Dioxide 7 L* (22-30) mmol/L Anion Gap 16 mmol/L BUN 130 H* (9-20) mg/dL Creatinine 5.34 H (0.66-1.25) mg/dL Est GFR (CKD-EPI)AfAm 12 (>60 ml/min/1.73 sqM) Est GFR (CKD-EPI)NonAf 10 (>60 ml/min/1.73 sqM) Glucose 364 H (74-99) mg/dL Calcium 6.9 L (8.4-10.2) mg/dL Magnesium 1.8 (1.6-2.3) mg/dL Total Bilirubin 0.5 (0.2-1.3) mg/dL AST 21 (17-59) U/L ALT 19 (4-49) U/L Alkaline Phosphatase 73 (38-126) U/L Troponin I (0.000-0.034) ng/mL Total Protein 4.9 L (6.3-8.2) g/dL Albumin 2.6 L (3.5-5.0) g/dL Stool Occult Blood (Negative) Influenza Type A (PCR) (Not Detectd) Influenza Type B (PCR) (Not Detectd) RSV (PCR) (Not Detectd) SARS-CoV-2 (PCR) (Not Detectd) Blood Type Blood Type Recheck Bld Type Recheck Status Antibody Screen Spec Expiration Date 06/01/24 06/01/24 06/01/24 Range/Units 10:50 10:50 10:50 WBC (3.8-10.6) k/uL RBC (4.30-5.90) m/uL Hgb (13.0-17.5) gm/dL Hct (39.0-53.0) % MCV (80.0-100.0) fL MCH (25.0-35.0) pg MCHC (31.0-37.0) g/dL RDW (11.5-15.5) % Plt Count (150-450) k/uL MPV Neutrophils % % Lymphocytes % % Monocytes % % Eosinophils % % Basophils % % Neutrophils # (1.3-7.7) k/uL Lymphocytes # (1.0-4.8) k/uL Monocytes # (0-1.0) k/uL Eosinophils # (0-0.7) k/uL Basophils # (0-0.2) k/uL Hypochromasia PT (10.0-12.5) sec INR (<1.2) APTT (22.0-30.0) sec Sodium (137-145) mmol/L Potassium (3.5-5.1) mmol/L Chloride (98-107) mmol/L Carbon Dioxide (22-30) mmol/L Anion Gap mmol/L BUN (9-20) mg/dL Creatinine (0.66-1.25) mg/dL Est GFR (CKD-EPI)AfAm (>60 ml/min/1.73 sqM) Est GFR (CKD-EPI)NonAf (>60 ml/min/1.73 sqM) Glucose (74-99) mg/dL Calcium (8.4-10.2) mg/dL Magnesium (1.6-2.3) mg/dL Total Bilirubin (0.2-1.3) mg/dL AST (17-59) U/L ALT (4-49) U/L Alkaline Phosphatase (38-126) U/L Troponin I 0.047 H* (0.000-0.034) ng/mL Total Protein (6.3-8.2) g/dL Albumin (3.5-5.0) g/dL Stool Occult Blood POSITIVE (Negative) Influenza Type A (PCR) Not Detected (Not Detectd) Influenza Type B (PCR) Not Detected (Not Detectd) RSV (PCR) Not Detected (Not Detectd) SARS-CoV-2 (PCR) Not Detected (Not Detectd) Blood Type Blood Type Recheck Bld Type Recheck Status Antibody Screen Spec Expiration Date 03/06/25 Range/Units 11:25 WBC (3.8-10.6) k/uL RBC (4.30-5.90) m/uL Hgb (13.0-17.5) gm/dL Hct (39.0-53.0) % MCV (80.0-100.0) fL MCH (25.0-35.0) pg MCHC (31.0-37.0) g/dL RDW (11.5-15.5) % Plt Count (150-450) k/uL MPV Neutrophils % % Lymphocytes % % Monocytes % % Eosinophils % % Basophils % % Neutrophils # (1.3-7.7) k/uL Lymphocytes # (1.0-4.8) k/uL Monocytes # (0-1.0) k/uL Eosinophils # (0-0.7) k/uL Basophils # (0-0.2) k/uL Hypochromasia PT (10.0-12.5) sec INR (<1.2) APTT (22.0-30.0) sec Sodium (137-145) mmol/L Potassium (3.5-5.1) mmol/L Chloride (98-107) mmol/L Carbon Dioxide (22-30) mmol/L Anion Gap mmol/L BUN (9-20) mg/dL Creatinine (0.66-1.25) mg/dL Est GFR (CKD-EPI)AfAm (>60 ml/min/1.73 sqM) Est GFR (CKD-EPI)NonAf (>60 ml/min/1.73 sqM) Glucose (74-99) mg/dL Calcium (8.4-10.2) mg/dL Magnesium (1.6-2.3) mg/dL Total Bilirubin (0.2-1.3) mg/dL AST (17-59) U/L ALT (4-49) U/L Alkaline Phosphatase (38-126) U/L Troponin I (0.000-0.034) ng/mL Total Protein (6.3-8.2) g/dL Albumin (3.5-5.0) g/dL Stool Occult Blood (Negative) Influenza Type A (PCR) (Not Detectd) Influenza Type B (PCR) (Not Detectd) RSV (PCR) (Not Detectd) SARS-CoV-2 (PCR) (Not Detectd) Blood Type O Positive Blood Type Recheck O Pos Bld Type Recheck Status No Antibody Screen NEGATIVE Spec Expiration Date 06/04/20242324 Critical Care Time Critical Care Time: Yes Total Critical Care Time: 35 Disposition Clinical Impression: Acute renal failure, Hyperkalemia, Atrial fibrillation with RVR Disposition: ADMITTED IP TO THIS [facility] Condition: Serious Is patient prescribed a controlled substance at d/c from ED?: No Referrals: Ashok Hidalgo MD [Primary Care Provider] - 1-2 days Time of Disposition: 12:49
[2024-06-01 11:14] LABS: Basophils % (A) 0 %; Eosinophils % (A) 0 %; HGB 8.4 gm/dL (13.0-17.5); Hypochromasia Marked; Lymphocytes # (A) 0.7 k/uL (1.0-4.8); Lymphocytes % (A) 6 %; MCH 29.4 pg (25.0-35.0); MCV 94.7 fL (80.0-100.0); Mean Platelet Volume 8.4; Monocytes # (A) 0.7 k/uL (0-1.0); Monocytes % (A) 6 %; Neutrophils # (A) 9.8 k/uL (1.3-7.7); Neutrophils % (A) 84 %; Platelet Count 150 k/uL (150-450); RBC 2.85 m/uL (4.30-5.90); RDW 14.9 % (11.5-15.5); WBC 11.6 k/uL (3.8-10.6)
[2024-06-01 11:16] LABS: ALT 19 U/L (4-49); African American GFR (CKD) 12 (>60 ml/min/1.73 sqM); Albumin 2.6 g/dL (3.5-5.0); Anion Gap 16 mmol/L; Calcium 6.9 mg/dL (8.4-10.2); Chloride 110 mmol/L (98-107); Glucose 364 mg/dL (74-99); Non-African American GFR(CKD) 10 (>60 ml/min/1.73 sqM); Sodium 133 mmol/L (137-145); Total Bilirubin 0.5 mg/dL (0.2-1.3); Total Protein 4.9 g/dL (6.3-8.2)
[2024-06-01 11:21] LABS: INR 1.1 (<1.2); Partial Thromboplastin Time 24.6 sec (22.0-30.0); Prothrombin Time 11.9 sec (10.0-12.5)
[2024-06-01 11:46] LABS: Blood Urea Nitrogen 130 mg/dL (9-20); Carbon Dioxide 7 mmol/L (22-30); Potassium 6.9 mmol/L (3.5-5.1)
[2024-06-01 11:47] LABS: AST 21 U/L (17-59); Alkaline Phosphatase 73 U/L (38-126); Magnesium 1.8 mg/dL (1.6-2.3)
[2024-06-01 11:49] LABS: Influenza A Not Detected (Not Detectd); Influenza B Not Detected (Not Detectd); RSV Not Detected (Not Detectd)
--- NOTE | 2024-06-01 11:55 | XR ---
EXAMINATION TYPE: XR chest 2V DATE OF EXAM: 06/01/2024 11:52 AM COMPARISON: Chest radiographs from 12/16/2022, CT chest 12/17/2022 TECHNIQUE: XR chest 2V Frontal and lateral views of the chest. CLINICAL INDICATION:Male, 68 years old with history of dysrhythmia; FINDINGS: Lungs/Pleura: There is no evidence of pleural effusion, focal consolidation, or pneumothorax. Pulmonary vascularity: Unremarkable. Heart/mediastinum: Cardiomediastinal silhouette is prominent in size. Atherosclerotic calcification of the aorta. Postoperative changes are present in the mediastinum. Musculoskeletal: Multiple level degenerative disc disease changes seen throughout the spine. Midline sternotomy wires are noted and stable. Other: Loop recorder within the anterior left chest. IMPRESSION: Chronic changes without acute pulmonary process. No significant change from prior. [facility], , 06/01/2024 11:53 AM
[2024-06-01] MEDS: CALCIUM GLUCONATE IN NACL 1 GM in SALINE 1 100ML.BAG IVPB ONE (12:33)
[2024-06-01] MEDS: INSULIN REGULAR 100 UNIT/ML VIAL (IV) IV ONE (12:33)
[2024-06-01] MEDS: SODIUM BICARB 8.4% 50 ML SYR (1 MEQ/ML) IV ONE (12:34)
[2024-06-01] MEDS: SODIUM ZIRCONIUM CYCLOSILICATE 10 GM PACKET PO ONE (12:35)
[2024-06-01] MEDS ORDERED: HYDROmorphone 0.5 MG/0.5 ML SYRINGE IVP PRN (12:41)
[2024-06-01] MEDS ORDERED: NALOXONE 0.4 MG/ML 1 ML VIAL IV PRN (12:41)
[2024-06-01] MEDS: DEXTROSE 5% IN WATER 1,000 ML with SODIUM BICARB (1 MEQ/ML) 100 ML IV SCH (13:56)
[2024-06-01 16:24] LABS: Potassium 5.1 mmol/L (3.5-5.1)
--- NOTE | 2024-06-01 16:45 | P.HPIM ---
History of Present Illness H&P Date: 06/01/24 History of present illness: 68-year-old male patient with past medically significant coronary artery disease, history of GI bleed with EGD and colonoscopy in 2022 showing duodenal ulcer, history of CKD, CHF, COPD, hypertension, hyperlipidemia who presented to ER for evaluation of failure to thrive, generalized weakness, vomiting, black tarry stools. Apparently patient had been off his medication for about a month. Patient was told that he needed dialysis but patient refused dialysis in the past.. Patient's poor historian. at the bedside. reported that patient was not taking his medications, because he did not have any quality of life and did not want to go on dialysis. 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 Patient agreeable to try medications, is still undecided about whether he wants to start hemodialysis if needed. Patient is afebrile, heart rate 86, respiratory rate 20, blood pressure 129/65, saturating 100% on room air. Patient was initially tachycardic with A-fib with RVR with heart rate in the 150s, was started on Cardizem drip in the ED. WBC 11.6, hemoglobin 8.4, platelet 150. INR 1.1. Sodium 133, potassium 6.9, chloride 110, CO2 7, anion gap 16, BUN 130, creatinine 5.34 calcium 6.9. Troponin 0.047. FOBT was positive. Viral panel was negative. Chest x-ray showed chronic changes without acute pulmonary process. No significant change from prior. 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 and potassium Lokelma Bladder scan to rule out retention As needed insulin, calcium gluconate, bicarb/albuterol per hyperkalemia protocol Nephrology consult Melena: History of GI bleed History of duodenal ulcer: Presented with melanotic stools, FOBT positive Hemoglobin 8.4 Monitor H&H, transfuse for hemoglobin less than 7.0 IV Protonix GI consulted A-fib with RVR: Elevated troponin: Likely secondary to CKD, demand ischemia Hypertension Hyperlipidemia Hold anticoagulation due to anemia/history of GI bleed Monitor with serial ekg, trops Cardizem drip Cardiology consult DVT prophylaxis SCD Monitor vital signs and labs Labs and medication were reviewed. Continue same treatment. Further recommendations as per clinical course of the patient PHYSICAL EXAMINATION: GENERAL: The patient is A&O x3, NAD HEENT: EOMI, Sclerae anicteric, Moist Mucous membranes Neck: Supple, Non tender, No JVD PULMONARY: Equal breath souds B/L, No wheezing, No crackles. CARDIOVASCULAR: S1, S2 present. No murmurs, rubs, or gallops. ABDOMEN: Soft, nontender, nondistended, normoactive bowel sounds. No guarding or rebound tenderness. MUSCULOSKELETAL: + edema, No cyanosis. No clubbing. Normal ROM. Intact peripheral pulses. NEUROLOGICAL: CN 2-12 grossly intact. No FND REVIEW OF SYSTEMS: CONSTITUTIONAL: Complains of fatigue, malaise. HEENT: No recent visual problems or hearing problems. Denied any sore throat. CARDIOVASCULAR: No chest pain, orthopnea, PND, no palpitations, no syncope. PULMONARY: No shortness of breath, no cough, no hemoptysis. GASTROINTESTINAL: No diarrhea, no nausea, no vomiting, no abdominal pain. NEUROLOGICAL: No headaches, no weakness, no numbness. HEMATOLOGICAL: Denies any bleeding or petechiae. GENITOURINARY: Denies any burning micturition, frequency, or urgency. MUSCULOSKELETAL/RHEUMATOLOGICAL: Denies any joint pain, swelling, or any muscle pain. ENDOCRINE: Denies any polyuria or polydipsia. The rest of the 14-point review of systems is negative. Dictation was produced using Reflektionation software. please excuse any grammatical, word or spelling errors. Past Medical History Past Medical History: Coronary Artery Disease (CAD), Chest Pain / Angina, Heart Failure, COPD, CVA/TIA, Diabetes Mellitus, Hyperlipidemia, Hypertension, O steoarthritis (OA), Prostate Disorder, Renal Disease, Sleep Apnea/CPAP/BIPAP, Supraventricular Tachycardia (SVT), Syncope, Vascular Disorder Additional Past Medical History / Comment(s): BACK PAIN , CVA 2013 and TIA 2014- short-term memory problems, rt side still slightly weaker , hx occ double vision & vertigo, tinnitus., sleep apnea (no machine), states kidney disease , uses cane states .,wears continues glucose monitor on abd.,, urine incontinence - wears pads. stroke 09/18 History of Any Multi-Drug Resistant Organisms: None Reported Past Surgical History: Appendectomy, Coronary Bypass/CABG, Heart Catheterization, Hernia Repair, Joint Replacement Additional Past Surgical History / Comment(s): RIGHT HIP REPLACEMENT 2002. Left hip arthroplasty anterior approach 09/09/2018. Quadruple Bypass . Past Anesthesia/Blood Transfusion Reactions: No Reported Reaction Past Psychological History: Anxiety, Depression Smoking Status: Former smoker Past Alcohol Use History: Rare Past Drug Use History: Marijuana - Past Family History Father Family Medical History: Myocardial Infarction ([place]) Mother Family Medical History: Coronary Artery Disease (CAD) Daughter(s) Family Medical History: No Reported History Son(s) Family Medical History: No Reported History Medications and Allergies Home Medications Medication Instructions Recorded Confirmed Type No Known Home Medications 06/01/24 06/01/24 History Allergies Allergy/AdvReac Type Severity Reaction Status Date / Time No Known Allergies Allergy Verified 06/01/24 12:17 Physical Exam Vitals: Vital Signs Temp Pulse Resp BP Pulse Ox 06/01/24 12:49 98.0 F 86 20 129/65 100 06/01/24 10:45 105 H 22 102/86 100 06/01/24 09:49 97.4 F L 156 H 22 128/97 99 Intake and Output 06/01/24 06/01/24 06/01/24 06:59 14:59 22:59 Other: Weight 63.503 kg Results CBC & Chem 7: 06/02/24 06:04 06/02/24 02:33 Labs: Abnormal Lab Results - Last 24 Hours (Table) 06/01/24 06/01/24 06/01/24 Range/Units 10:50 10:50 10:50 WBC 11.6 H (3.8-10.6) k/uL RBC 2.85 L (4.30-5.90) m/uL Hgb 8.4 L (13.0-17.5) gm/dL Hct 27.0 L (39.0-53.0) % Neutrophils # 9.8 H (1.3-7.7) k/uL Lymphocytes # 0.7 L (1.0-4.8) k/uL Sodium 133 L (137-145) mmol/L Potassium 6.9 H* (3.5-5.1) mmol/L Chloride 110 H (98-107) mmol/L Carbon Dioxide 7 L* (22-30) mmol/L BUN 130 H* (9-20) mg/dL Creatinine 5.34 H (0.66-1.25) mg/dL Glucose 364 H (74-99) mg/dL Calcium 6.9 L (8.4-10.2) mg/dL Troponin I 0.047 H* (0.000-0.034) ng/mL Total Protein 4.9 L (6.3-8.2) g/dL Albumin 2.6 L (3.5-5.0) g/dL
[2024-06-01 17:09] LABS: African American GFR (CKD) 11 (>60 ml/min/1.73 sqM); Anion Gap 14 mmol/L; Calcium 7.3 mg/dL (8.4-10.2); Carbon Dioxide 11 mmol/L (22-30); Chloride 108 mmol/L (98-107); Glucose 222 mg/dL (74-99); Non-African American GFR(CKD) 10 (>60 ml/min/1.73 sqM); Sodium 133 mmol/L (137-145)
[2024-06-01] MEDS: SODIUM ZIRCONIUM CYCLOSILICATE 10 GM PACKET PO SCH (17:09)
[2024-06-01 17:19] LABS: Blood Urea Nitrogen 132 mg/dL (9-20)
[2024-06-01 18:32] LABS: HCT 21.7 % (39.0-53.0); Hypochromasia Moderate; MCHC 30.9 g/dL (31.0-37.0); MCV 93.8 fL (80.0-100.0); Mean Platelet Volume 8.6; Platelet Count 134 k/uL (150-450); RBC 2.31 m/uL (4.30-5.90); RDW 15.3 % (11.5-15.5); WBC 9.6 k/uL (3.8-10.6)
[2024-06-01 18:33] LABS: HGB 6.7 gm/dL (13.0-17.5)
[2024-06-01] MEDS: DEXTROSE 5% IN WATER 1,000 ML with SODIUM BICARB (1 MEQ/ML) 150 ML IV SCH (19:10)
[2024-06-01] MEDS: PANTOPRAZOLE 40 MG/10 ML VIAL IVP SCH (20:19)
[2024-06-02 00:31] LABS: Appearance,Urine Clear (Clear); Bilirubin,Urine Negative (Negative); Blood,Urine Negative (Negative); Color,Urine Colorless; Glucose,Urine (UA) 3+ (Negative); Hyaline Casts,Urine 1 /lpf (0-2); Ketones,Urine Negative (Negative); Leukocyte Esterase,Urine Negative (Negative); Nitrite,Urine Negative (Negative); PH, Urine 5.5 (5.0-8.0); Protein,Urine 1+ (Negative); RBC,Urine 1 /hpf (0-5); Specific Gravity,Urine 1.012 (1.001-1.035); Urobilinogen,Urine <2.0 mg/dL (<2.0); WBC,Urine 1 /hpf (0-5)
[2024-06-02 02:11] LABS: MCH 28.5 pg (25.0-35.0); MCHC 32.2 g/dL (31.0-37.0); MCV 88.7 fL (80.0-100.0); Mean Platelet Volume 7.9; Platelet Count 126 k/uL (150-450); RBC 2.37 m/uL (4.30-5.90); RDW 14.4 % (11.5-15.5); WBC 8.6 k/uL (3.8-10.6)
[2024-06-02 02:25] LABS: HGB 6.8 gm/dL (13.0-17.5)
[2024-06-02 03:21] LABS: African American GFR (CKD) 13 (>60 ml/min/1.73 sqM); Anion Gap 10 mmol/L; Calcium 7.2 mg/dL (8.4-10.2); Carbon Dioxide 16 mmol/L (22-30); Chloride 105 mmol/L (98-107); Glucose 245 mg/dL (74-99); Non-African American GFR(CKD) 11 (>60 ml/min/1.73 sqM); Potassium 4.2 mmol/L (3.5-5.1); Sodium 131 mmol/L (137-145)
[2024-06-02 03:40] LABS: Blood Urea Nitrogen 117 mg/dL (9-20)
[2024-06-02 04:56] VITALS: TEMP 97.7
[2024-06-02 06:22] LABS: Basophils % (A) 0 %; Eosinophils # (A) 0.1 k/uL (0-0.7); Eosinophils % (A) 1 %; HCT 25.7 % (39.0-53.0); HGB 8.2 gm/dL (13.0-17.5); Hypochromasia Slight; Lymphocytes # (A) 1.1 k/uL (1.0-4.8); Lymphocytes % (A) 13 %; MCHC 31.8 g/dL (31.0-37.0); MCV 91.4 fL (80.0-100.0); Mean Platelet Volume 7.6; Monocytes # (A) 0.7 k/uL (0-1.0); Monocytes % (A) 8 %; Neutrophils # (A) 6.6 k/uL (1.3-7.7); Neutrophils % (A) 76 %; Platelet Count 122 k/uL (150-450); RBC 2.82 m/uL (4.30-5.90); RDW 14.3 % (11.5-15.5); WBC 8.6 k/uL (3.8-10.6)
[2024-06-02] MEDS ORDERED: ACETAMINOPHEN TAB 500 MG TAB PO PRN (08:42)
[2024-06-02 10:20] VITALS: RESP 18
--- NOTE | 2024-06-02 10:31 | P.NPCON ---
History of Present Illness - Reason for Consult chronic renal failure - History of Present Illness Patient is a 68-year-old male with history of chronic kidney disease stage V with previous creatinine around 4 to 4.5 mg/dL on 05/05/24. Patient was scheduled for AV graft placement as outpatient however he had to cancel his surgery as he does not want to proceed with renal replacement therapy. Underlying history of CHF COPD hypertension and previous CVA Patient is admitted to the hospital with complaints of increased weakness, nausea and vomiting, decreased oral intake and black stools. No history of fever or chills. Patient was noted to be in A-fib with RVR with heart rate in the 150s and is maintained on Cardizem drip. Blood pressure was not significantly low. Hemoglobin was 6.7 g/dL and patient has been transfused 2 units packed RBCs. Serum creatinine was 5.3 on admission and has decreased to 4.8 with IV hydration.. No active bleeding noted currently. Past Medical History Past Medical History: Coronary Artery Disease (CAD), Chest Pain / Angina, Heart Failure, COPD, CVA/TIA, Diabetes Mellitus, Hyperlipidemia, Hypertension, Osteoarthritis (OA), Prostate Disorder, Renal Disease, Sleep Apnea/CPAP/BIPAP, Supraventricular Tachycardia (SVT), Syncope, Vascular Disorder Additional Past Medical History / Comment(s): BACK PAIN , CVA 2013 and TIA 2014- short-term memory problems, rt side still slightly weaker , hx occ double vision & vertigo, tinnitus., sleep apnea (no machine), states kidney disease , uses cane states .,wears continues glucose monitor on abd.,, urine incontinence - wears pads. stroke 09/18 History of Any Multi-Drug Resistant Organisms: None Reported Past Surgical History: Appendectomy, Coronary Bypass/CABG, Heart Catheterization, Hernia Repair, Joint Replacement Additional Past Surgical History / Comment(s): RIGHT HIP REPLACEMENT 2002. Left hip arthroplasty anterior approach 09/09/2018. Quadruple Bypass . Past Anesthesia/Blood Transfusion Reactions: No Reported Reaction Past Psychological History: Anxiety, Depression Smoking Status: Former smoker Past Alcohol Use History: Rare Past Drug Use History: Marijuana - Past Family History Father Family Medical History: Myocardial Infarction ([place]) Mother Family Medical History: Coronary Artery Disease (CAD) Daughter(s) Family Medical History: No Reported History Son(s) Family Medical History: No Reported History Medications and Allergies Home Medications Medication Instructions Recorded Confirmed Type No Known Home Medications 06/01/24 06/01/24 History Allergies Allergy/AdvReac Type Severity Reaction Status Date / Time No Known Allergies Allergy Verified 06/01/24 12:17 Physical Exam Vitals: Vital Signs Temp Pulse Resp BP Pulse Ox 06/02/24 07:17 66 16 150/67 99 06/02/24 06:00 72 16 145/86 99 06/02/24 04:55 97.7 F 72 16 132/67 98 06/02/24 03:58 97.8 F 71 18 142/74 99 06/02/24 03:38 97.8 F 74 16 132/66 99 06/02/24 03:28 97.8 F 81 18 160/78 99 06/02/24 02:00 74 18 140/68 99 06/02/24 00:05 85 16 156/68 100 06/01/24 21:55 97.9 F 84 16 162/67 100 06/01/24 21:41 84 18 155/69 100 06/01/24 20:45 97.9 F 87 16 148/63 100 06/01/24 20:25 97.9 F 81 18 159/64 100 06/01/24 20:00 85 16 143/70 100 06/01/24 16:16 92 18 144/61 100 06/01/24 12:49 98.0 F 86 20 129/65 100 06/01/24 10:45 105 H 22 102/86 100 Intake and Output 06/01/24 06/02/24 06/02/24 22:59 06:59 14:59 Intake Total 310 310 Balance 310 310 Intake: Blood Product 310 310 As-1 Unit 310 [id number] As-1 Unit 310 [id number] Patient is awake, comfortable, no acute distress Answers questions appropriately Examination of the heart S1 and S2 Examination of the lungs bilateral breath sounds are heard Abdomen is soft nontender Examination of lower extremities shows no evidence of edema CRYSTAL MOUNTER exam shows patient is moving all 4 extremities. Results - Lab Results Most recent lab results Calcium 7.2 mg/dL (8.4-10.2) L 06/02/24 02:33 Magnesium 1.8 mg/dL (1.6-2.3) 06/01/24 10:50 06/02/24 06:04 06/02/24 02:33 Assessment and Plan Assessment: 1. Acute kidney injury, mostly prerenal associated with hypovolemia and component of ATN from severe anemia. Nonoliguric and improving with IV hydration. BUN is disproportionately elevated from underlying GI bleed 2. Chronic kidney disease stage V with previous creatinine 4.5 on 05/05/2024. Etiology is nephrosclerosis. Patient was scheduled for AV graft placement which he has canceled as he states that he did not want to proceed with dialysis. 3. Anemia most likely related to GI bleed along with component of anemia of chronic disease 4. A-fib with RVR maintained on Cardizem drip 5. [place] metabolic acidosis associated with acute kidney injury maintained on bicarb drip 6. GI bleed, GI on consult. Status post 2 units packed RBCs transfusion 7. Hyperkalemia associated with acute kidney injury GI bleed and metabolic acidosis, currently improved Plan: Continue with IV bicarb Will discuss renal replacement therapy again with his . It appears that the patient and his have decided not to proceed with renal replacement therapy. I tried to call her on the 2 numbers provided but I was not able to connect with her. Repeat labs in a.m. Add iron as Transfuse packed RBCs as needed DDAVP x 1 Thank you for the consultation. We will continue to follow the patient with you during his hospitalization.
--- NOTE | 2024-06-02 10:50 | P.CONS ---
History of Present Illness - Reason for Consult Consult date: 06/02/24 Anemia, melena Requesting physician: Bryson Lopez - Chief Complaint Nausea and vomiting, failure to thrive - History of Present Illness This is a pleasant 68-year-old male who came in to the emergency department after his called EMS. Patient states he is really not sure why he came in that his called. There is no family at the bedside. He reportedly has a history of coronary artery disease, chronic kidney disease/end-stage renal disease with recommendation for renal replacement therapy, heart failure, COPD, diabetes mellitus, hyperlipidemia, hypertension, vascular disorder who reportedly has been having nausea and vomiting and dark stool for the last 2 to 3 days. Patient was on anticoagulation in the past but about a month ago he s tates he stopped taking all of his medications because he does not want to live anymore. He was found to be anemic on admission and has been transfused 2 units of blood. He does have a history of anemia with workup for GI bleed. He had a upper endoscopy in November 2022 with findings of a clean-based duodenal ulcer without any evidence of bleeding and gastritis. Last colonoscopy was in [address] Case with findings of colon polyps status post polypectomy and diverticulosis. Patient denies any abdominal pain, he has not had any bowel movement since he has been admitted and no vomiting. Repeat hemoglobin this morning 8.2 platelet count 122,000. Patient with normochromic normocytic anemia. Elevated troponins and acute on chronic kidney failure. Review of Systems REVIEW OF SYSTEMS: CARDIOPULMONARY: No chest pain or shortness of breath. Gastrointestinal: No abdominal pain. Nausea and vomiting for last 2 to 3 days duration. No hematemesis, coffee-ground emesis. Reported black stool for past 2 to 3 days. GENITOURINARY: No dysuria or hematuria. MUSCULOSKELETAL: Reports normal range of motion., Joint pain. SKIN: No rashes. No jaundice. ENDOCRINE: No chills, fevers. No excessive weight gain or loss. No polydipsia or polyuria. PSYCHIATRIC: Patient verbalizes he does not want to live. He stopped all home medications. NEUROLOGY: No change in mental status. Denies dizziness, headache. ENT: Vision unremarkable. CONSTITUTIONAL: No recent weight loss. No fever, chills, night sweats. Past Medical History Past Medical History: Coronary Artery Disease (CAD), Chest Pain / Angina, Heart Failure, COPD, CVA/TIA, Diabetes Mellitus, Hyperlipidemia, Hypertension, Osteoarthritis (OA), Prostate Disorder, Renal Disease, Sleep Apnea/CPAP/BIPAP, Supraventricular Tachycardia (SVT), Syncope, Vascular Disorder Additional Past Medical History / Comment(s): BACK PAIN , CVA 2013 and TIA 2014- short-term memory problems, rt side still slightly weaker , hx occ double vision & vertigo, tinnitus., sleep apnea (no machine), states kidney disease , uses cane states .,wears continues glucose monitor on abd.,, urine incontinence - wears pads. stroke 09/18 History of Any Multi-Drug Resistant Organisms: None Reported Past Surgical History: Appendectomy, Coronary Bypass/CABG, Heart Catheterization, Hernia Repair, Joint Replacement Additional Past Surgical History / Comment(s): RIGHT HIP REPLACEMENT 2002. Left hip arthroplasty anterior approach 09/09/2018. Quadruple Bypass . Past Anesthesia/Blood Transfusion Reactions: No Reported Reaction Past Psychological History: Anxiety, Depression Smoking Status: Former smoker Past Alcohol Use History: Rare Past Drug Use History: Marijuana - Past Family History Father Family Medical History: Myocardial Infarction ([place]) Mother Family Medical History: Coronary Artery Disease (CAD) Daughter(s) Family Medical History: No Reported History Son(s) Family Medical History: No Reported History Medications and Allergies Home Medications Medication Instructions Recorded Confirmed Type No Known Home Medications 06/01/24 06/01/24 History Allergies Allergy/AdvReac Type Severity Reaction Status Date / Time No Known Allergies Allergy Verified 06/01/24 12:17 Physical Exam Vitals: Vital Signs Temp Pulse Resp BP Pulse Ox 06/02/24 06:00 72 16 145/86 99 06/02/24 04:55 97.7 F 72 16 132/67 98 06/02/24 03:58 97.8 F 71 18 142/74 99 06/02/24 03:38 97.8 F 74 16 132/66 99 06/02/24 03:28 97.8 F 81 18 160/78 99 06/02/24 02:00 74 18 140/68 99 06/02/24 00:05 85 16 156/68 100 06/01/24 21:55 97.9 F 84 16 162/67 100 06/01/24 21:41 84 18 155/69 100 06/01/24 20:45 97.9 F 87 16 148/63 100 06/01/24 20:25 97.9 F 81 18 159/64 100 06/01/24 20:00 85 16 143/70 100 06/01/24 16:16 92 18 144/61 100 06/01/24 12:49 98.0 F 86 20 129/65 100 06/01/24 10:45 105 H 22 102/86 100 06/01/24 09:49 97.4 F L 156 H 22 128/97 99 Intake and Output 06/01/24 06/01/24 06/02/24 14:59 22:59 06:59 Intake Total 310 310 Balance 310 310 Intake: Blood Product 310 310 Rc As-1 Unit 310 [id number] Rc As-1 Unit 310 [id number] Other: Weight 63.503 kg General appearance: The patient is alert, oriented, appears in no acute distress. HET: Head is normocephalic and atraumatic. Conjunctiva pink. Sclera anicteric. Neck: Supple without lymphadenopathy. Trachea midline. Heart: Regular. Lungs: Equal expansion, normal respiratory effort. Abdomen: Soft, nontender, nondistended. Skin: No rashes. No jaundice. Extremities: Normal skin color and turgor. No pedal edema. Neurological: No focal deficits. Alert and oriented x3. Results CBC & Chem 7: 06/02/24 06:04 06/02/24 02:33 Labs: Abnormal Lab Results - Last 24 Hours (Table) 06/01/24 06/01/24 06/01/24 Range/Units 10:50 10:50 10:50 WBC 11.6 H (3.8-10.6) k/uL RBC 2.85 L (4.30-5.90) m/uL Hgb 8.4 L (13.0-17.5) gm/dL Hct 27.0 L (39.0-53.0) % MCHC (31.0-37.0) g/dL Plt Count (150-450) k/uL Neutrophils # 9.8 H (1.3-7.7) k/uL Lymphocytes # 0.7 L (1.0-4.8) k/uL Sodium 133 L (137-145) mmol/L Potassium 6.9 H* (3.5-5.1) mmol/L Chloride 110 H (98-107) mmol/L Carbon Dioxide 7 L* (22-30) mmol/L BUN 130 H* (9-20) mg/dL Creatinine 5.34 H (0.66-1.25) mg/dL Glucose 364 H (74-99) mg/dL Calcium 6.9 L (8.4-10.2) mg/dL Troponin I 0.047 H* (0.000-0.034) ng/mL Total Protein 4.9 L (6.3-8.2) g/dL Albumin 2.6 L (3.5-5.0) g/dL Urine Protein (Negative) Urine Glucose (UA) (Negative) Crossmatch 06/01/24 06/01/24 06/01/24 Range/Units 11:25 15:35 15:40 WBC (3.8-10.6) k/uL RBC (4.30-5.90) m/uL Hgb (13.0-17.5) gm/dL Hct (39.0-53.0) % MCHC (31.0-37.0) g/dL Plt Count (150-450) k/uL Neutrophils # (1.3-7.7) k/uL Lymphocytes # (1.0-4.8) k/uL Sodium 133 L (137-145) mmol/L Potassium (3.5-5.1) mmol/L Chloride 108 H (98-107) mmol/L Carbon Dioxide 11 L (22-30) mmol/L BUN 132 H* (9-20) mg/dL Creatinine 5.42 H (0.66-1.25) mg/dL Glucose 222 H (74-99) mg/dL Calcium 7.3 L (8.4-10.2) mg/dL Troponin I 0.057 H* (0.000-0.034) ng/mL Total Protein (6.3-8.2) g/dL Albumin (3.5-5.0) g/dL Urine Protein (Negative) Urine Glucose (UA) (Negative) Crossmatch See Detail 06/01/24 06/01/24 06/02/24 Range/Units 18:04 18:04 00:15 WBC (3.8-10.6) k/uL RBC 2.31 L (4.30-5.90) m/uL Hgb 6.7 L* D (13.0-17.5) gm/dL Hct 21.7 L (39.0-53.0) % MCHC 30.9 L (31.0-37.0) g/dL Plt Count 134 L (150-450) k/uL Neutrophils # (1.3-7.7) k/uL Lymphocytes # (1.0-4.8) k/uL Sodium (137-145) mmol/L Potassium (3.5-5.1) mmol/L Chloride (98-107) mmol/L Carbon Dioxide (22-30) mmol/L BUN (9-20) mg/dL Creatinine (0.66-1.25) mg/dL Glucose (74-99) mg/dL Calcium (8.4-10.2) mg/dL Troponin I 0.067 H* (0.000-0.034) ng/mL Total Protein (6.3-8.2) g/dL Albumin (3.5-5.0) g/dL Urine Protein 1+ H (Negative) Urine Glucose (UA) 3+ H (Negative) Crossmatch 06/02/24 06/02/24 06/02/24 Range/Units 01:55 02:33 06:04 WBC (3.8-10.6) k/uL RBC 2.37 L 2.82 L (4.30-5.90) m/uL Hgb 6.8 L* 8.2 L (13.0-17.5) gm/dL Hct 21.0 L 25.7 L (39.0-53.0) % MCHC (31.0-37.0) g/dL Plt Count 126 L 122 L (150-450) k/uL Neutrophils # (1.3-7.7) k/uL Lymphocytes # (1.0-4.8) k/uL Sodium 131 L (137-145) mmol/L Potassium (3.5-5.1) mmol/L Chloride (98-107) mmol/L Carbon Dioxide 16 L (22-30) mmol/L BUN 117 H* (9-20) mg/dL Creatinine 4.86 H (0.66-1.25) mg/dL Glucose 245 H (74-99) mg/dL Calcium 7.2 L (8.4-10.2) mg/dL Troponin I (0.000-0.034) ng/mL Total Protein (6.3-8.2) g/dL Albumin (3.5-5.0) g/dL Urine Protein (Negative) Urine Glucose (UA) (Negative) Crossmatch Chest x-ray: report reviewed (Chronic changes without acute pulmonary process. No significant change from prior.) Assessment and Plan (1) Anemia Narrative/Plan: 68-year-old male with multiple comorbidities sent into the emergency department by his for unclear etiology. Patient had been experiencing nausea and vomiting and black stools for last 2 to 3 days duration without any hematemesis or coffee-ground emesis reported. Patient has a history of duodenal bulb ulcer diagnosed in November 2022 after undergoing upper endoscopy secondary to anemia. Last colonoscopy in 2021 with no evidence of GI bleed. Patient found to be anemic, normocytic normochromic anemia possiblly secondary to anemia of chronic disease however need to consider possible upper GI bleed as patient has had melanotic stool and history of duodenal bulb ulcer. Patient offered upper endoscopy however he states he cannot make that decision. We have tried to contact patient's on both cell phone and home phone provided in chart with messages left with no response to discuss possibly proceeding with upper endoscopy. Continue symptomatic and supportive care at this time. Protonix 40 mg twice daily, transfuse as needed for hemoglobin less than 7. Current Visit: No Status: Acute Code(s): D64.9 - ANEMIA, UNSPECIFIED SNOMED Code(s): 702105689 (2) Acute renal failure superimposed on chronic kidney disease Current Visit: Yes Status: Acute Code(s): N17.9 - ACUTE KIDNEY FAILURE, UNSPECIFIED; N18.9 - CHRONIC KIDNEY DISEASE, UNSPECIFIED SNOMED Code(s): 618291942 (3) Coronary artery disease Current Visit: Yes Status: Acute Code(s): I25.10 - ATHSCL HEART DISEASE OF [place] CORONARY ARTERY W/O ANG PCTRS SNOMED Code(s): 44368628 (4) History of CVA (cerebrovascular accident) Current Visit: No Status: Acute Code(s): Z86.73 - PRSNL HX OF TIA (TIA), AND CEREB INFRC W/O RESID DEFICITS SNOMED Code(s): 679859054 (5) History of atrial fibrillation Current Visit: No Status: Acute Code(s): Z86.79 - PERSONAL HISTORY OF OTHER DISEASES OF THE CIRCULATORY SYSTEM SNOMED Code(s): 801705141 (6) History of duodenal ulcer Current Visit: Yes Status: Acute Code(s): Z87.19 - PERSONAL HISTORY OF OTHER DISEASES OF THE DIGESTIVE SYSTEM SNOMED Code(s): 663763128 Plan: 1. Continue symptomatic and supportive care 2. Protonix 40 mg twice daily 3. Keep n.p.o. for now 4. Discussed with patient he has history of duodenal ulcer, offered upper endoscopy however patient declining at this time and deferring decision to his who cannot be contacted by phone however message was left to call back 5. Daily CBC, transfuse for hemoglobin less than 7 6. Avoid NSAIDs 7. Rest of medical management per primary medical team. Consider hospice discussion as patient is voicing that he does not want to live and he has stopped taking his medications Thank you for allowing us to participate in the care of the patient, the GI service will sign off, gastroenterology will not be available at the hospital this weekend and through next week. If further evaluation by gastroenterology is required the patient will need transfer as per the primary team's discretion. Dr. Wiliam Bolanos I agree with the dictator's note, documented as a scribe by Ana Figueroa.
[2024-06-02] MEDS: DESMOPRESSIN ACETATE 18 MCG in SODIUM CHLORIDE 0.9% 50 ML IVPB ONE (11:03)
[2024-06-02 12:11] LABS: Magnesium 1.6 mg/dL (1.6-2.3)
[2024-06-02 12:19] LABS: NT-Pro-B-Type Natriuretic Pept 1770 pg/mL
[2024-06-02] MEDS: ASPIRIN 81 MG PO SCH (12:30)
[2024-06-02] MEDS: METOPROLOL TARTRATE 25 MG TAB PO SCH (12:30)
[2024-06-02] MEDS: amLODIPine 5 MG TAB PO SCH (12:30)
--- NOTE | 2024-06-02 12:30 | P.PN ---
Subjective Progress Note Date: 06/02/24 Interval History: 68-year-old male patient with past medically significant coronary artery disease, history of GI bleed with EGD and colonoscopy in 2022 showing duodenal ulcer, history of CKD, CHF, COPD, hypertension, hyperlipidemia who presented to ER for evaluation of failure to thrive, generalized weakness, vomiting, black tarry stools. Apparently patient had been off his medication for about a month. Patient was told that he needed dialysis but patient refused dialysis in the past.. Patient's poor historian. at the bedside. reported that patient was not taking his medications, because he did not have any quality of life and did not want to go on dialysis. Patient reported that he did not have any suicidal ideations or plan, patient reported that he is a Muslim and he would never commit self-harm. Patient agreeable to try medications, is still undecided about whether he wants to start hemodialysis if needed. Patient is afebrile, heart rate 86, respiratory rate 20, blood pressure 129/65, saturating 100% on room air. Patient was initially tachycardic with A-fib with RVR with heart rate in the 150s, was started on Cardizem drip in the ED. WBC 11.6, hemoglobin 8.4, platelet 150. INR 1.1. Sodium 133, potassium 6.9, chloride 110, CO2 7, anion gap 16, BUN 130, creatinine 5.34 calcium 6.9. Troponin 0.047. FOBT was positive. Viral panel was negative. Chest x-ray showed chronic changes without acute pulmonary process. No significant change from prior. 06/02--patient was seen and examined today. Patient is afebrile, heart rate 71, respiratory rate 18, blood pressure 163/68, saturating 99% on room air. WBC 8.6, hemoglobin 8.2, platelet 122. Sodium 131, potassium 4.2, chloride 105, CO2 16, BUN 117, creatinine trended down to 4.86. Magnesium 1.6. NT proBNP 1770. Nephrology following. GI recommended symptomatic and supportive care, Protonix, offered upper endoscopy but patient declined. 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 drip Public Affairs Director BMP and potassium Lokelma Bladder scan to rule out retention As needed insulin, calcium gluconate, bicarb/albuterol per hyperkalemia protocol Nephrology consult Melena: History of GI bleed History of duodenal ulcer: Presented with melanotic stools, FOBT positive Hemoglobin 8.4 Monitor H&H, transfuse for hemoglobin less than 7.0, received 2 units packed RBCs. IV Protonix GI consulted--recommended upper endoscopy, patient currently declining. A-fib with RVR: Elevated troponin: Likely secondary to CKD, demand ischemia Hypertension Hyperlipidemia Hold anticoagulation due to anemia/history of GI bleed Monitor with serial ekg, trops Cardizem drip Cardiology consult DVT prophylaxis SCD Monitor vital signs and labs Labs and medication were reviewed. Continue same treatment. Further recommendations as per clinical course of the patient PHYSICAL EXAMINATION: GENERAL: The patient is A&O x3, NAD HEENT: EOMI, Sclerae anicteric, Moist Mucous membranes Neck: Supple, Non tender, No JVD PULMONARY: Equal breath souds B/L, No wheezing, No crackles. CARDIOVASCULAR: S1, S2 present. No murmurs, rubs, or gallops. ABDOMEN: Soft, nontender, nondistended, normoactive bowel sounds. No guarding or rebound tenderness. MUSCULOSKELETAL: + edema, No cyanosis. No clubbing. Normal ROM. Intact peripheral pulses. NEUROLOGICAL: CN 2-12 grossly intact. No FND REVIEW OF SYSTEMS: CONSTITUTIONAL: No fever or chills. CARDIOVASCULAR: No chest pain, palpitations or syncope. PULMONARY: No shortness of breath, no cough, sore throat. GASTROINTESTINAL: No nausea, vomiting, diarrhea, abdominal pain. : No Dysuria, urgency, frequency. Extremities: No edema. NEUROLOGICAL: No headaches, no weakness, or numbness Dictation was produced using [employer] dictation software. please excuse any gramma tical, word or spelling errors. Objective - Vital Signs Vital signs: Vital Signs Temp 97.7 F 06/02/24 04:55 Pulse 71 06/02/24 10:19 Resp 18 06/02/24 10:19 BP 163/68 06/02/24 10:19 Pulse Ox 99 06/02/24 10:19 FiO2 Intake & Output 06/01/24 06/02/24 06/02/24 18:59 06:59 18:59 Intake Total 620 116.583 Balance 620 116.583 Weight 63.503 kg Intake: Intake, IV Titration 116.583 Amount Diltiazem 125 mg In 116.583 Sodium Chloride 0.9% 100 ml @ 5 MG/HR 5 mls/hr IV .Q24H [facility] Rx#:[id number] Blood Product 620 Rc As-1 Unit 310 [id number] Rc As-1 Unit 310 [id number] - Labs CBC & Chem 7: 06/02/24 06:04 06/02/24 02:33 Labs: Abnormal Lab Results - Last 24 Hours (Table) 06/01/24 06/01/24 06/01/24 Range/Units 11:25 15:35 15:40 RBC (4.30-5.90) m/uL Hgb (13.0-17.5) gm/dL Hct (39.0-53.0) % MCHC (31.0-37.0) g/dL Plt Count (150-450) k/uL Sodium 133 L (137-145) mmol/L Chloride 108 H (98-107) mmol/L Carbon Dioxide 11 L (22-30) mmol/L BUN 132 H* (9-20) mg/dL Creatinine 5.42 H (0.66-1.25) mg/dL Glucose 222 H (74-99) mg/dL Calcium 7.3 L (8.4-10.2) mg/dL Troponin I 0.057 H* (0.000-0.034) ng/mL Urine Protein (Negative) Urine Glucose (UA) (Negative) Crossmatch See Detail 06/01/24 06/01/24 06/02/24 Range/Units 18:04 18:04 00:15 RBC 2.31 L (4.30-5.90) m/uL Hgb 6.7 L* D (13.0-17.5) gm/dL Hct 21.7 L (39.0-53.0) % MCHC 30.9 L (31.0-37.0) g/dL Plt Count 134 L (150-450) k/uL Sodium (137-145) mmol/L Chloride (98-107) mmol/L Carbon Dioxide (22-30) mmol/L BUN (9-20) mg/dL Creatinine (0.66-1.25) mg/dL Glucose (74-99) mg/dL Calcium (8.4-10.2) mg/dL Troponin I 0.067 H* (0.000-0.034) ng/mL Urine Protein 1+ H (Negative) Urine Glucose (UA) 3+ H (Negative) Crossmatch 06/02/24 06/02/24 06/02/24 Range/Units 01:55 02:33 06:04 RBC 2.37 L 2.82 L (4.30-5.90) m/uL Hgb 6.8 L* 8.2 L (13.0-17.5) gm/dL Hct 21.0 L 25.7 L (39.0-53.0) % MCHC (31.0-37.0) g/dL Plt Count 126 L 122 L (150-450) k/uL Sodium 131 L (137-145) mmol/L Chloride (98-107) mmol/L Carbon Dioxide 16 L (22-30) mmol/L BUN 117 H* (9-20) mg/dL Creatinine 4.86 H (0.66-1.25) mg/dL Glucose 245 H (74-99) mg/dL Calcium 7.2 L (8.4-10.2) mg/dL Troponin I (0.000-0.034) ng/mL Urine Protein (Negative) Urine Glucose (UA) (Negative) Crossmatch
--- NOTE | 2024-06-02 15:19 | P.DS ---
Providers Date of admission: 06/01/24 12:43 Attending physician: Dulce Maria Archer Consults: 06/01/24 12:02 Consult Physician Routine Consulting Provider: Alina Montenegro Consult Reason/Comments: Hyperkalemia Do you want consulting provider notified?: Already Contacted 06/01/24 12:41 Consult Physician Routine Consulting Provider: Lang Hopkins Consult Reason/Comments: A-fib with RVR Do you want consulting provider notified?: Yes Consult Physician Routine Consulting Provider: Yeny Bolanos Consult Reason/Comments: Melanotic stool Do you want consulting provider notified?: Yes Primary care physician: [facility] Course: Discharge diagnoses: RICKY on CKD: Hyperkalemia: FTT: History of CKD, has refused hemodialysis in the past, currently pt undecided 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 Melena: History of GI bleed History of duodenal ulcer: Presented with melanotic stools, FOBT positive Hemoglobin 8.4 Monitor H&H, transfuse for hemoglobin less than 7.0, received 2 units packed RBCs. IV Protonix GI consulted--recommended upper endoscopy, patient declined endoscopy Hospice consultedpatient and decided to go home with hospice. A-fib with RVR: Elevated troponin: Likely secondary to CKD, demand ischemia Hypertension Hyperlipidemia Hold anticoagulation due to anemia/history of GI bleed Monitor with serial ekg, trops Cardizem drip Cardiology consulted Hospice consultedpatient and decided to go home with hospice. Hospital course: 68-year-old male patient with past medically significant coronary artery disease, history of GI bleed with EGD and colonoscopy in 2022 showing duodenal ulcer, history of CKD, CHF, COPD, hypertension, hyperlipidemia who presented to ER for evaluation of failure to thrive, generalized weakness, vomiting, black tarry stools. Apparently patient had been off his medication for about a month. Patient was told that he needed dialysis but patient refused dialysis in the past.. Patient's poor historian. at the bedside. reported that patient was not taking his medications, because he did not have any quality of life and did not want to go on dialysis. Patient reported that he did not have any suicidal ideations or plan, patient reported that he is a Jainism and he would never commit self-harm. Patient agreeable to try medications, is still undecided about whether he wants to start hemodialysis if needed. Patient is afebrile, heart rate 86, respiratory rate 20, blood pressure 129/65, saturating 100% on room air. Patient was initially tachycardic with A-fib with RVR with heart rate in the 150s, was started on Cardizem drip in the ED. WBC 11.6, hemoglobin 8.4, platelet 150. INR 1.1. Sodium 133, potassium 6.9, chloride 110, CO2 7, anion gap 16, BUN 130, creatinine 5.34 calcium 6.9. Troponin 0.047. FOBT was positive. Viral panel was negative. Chest x-ray showed chronic changes without acute pulmonary process. No significant change from prior. 06/02--patient was seen and examined today. Patient is afebrile, heart rate 71, respiratory rate 18, blood pressure 163/68, saturating 99% on room air. WBC 8.6, hemoglobin 8.2, platelet 122. Sodium 131, potassium 4.2, chloride 105, CO2 16, BUN 117, creatinine trended down to 4.86. Magnesium 1.6. NT proBNP 1770. Nephrology following. GI recommended symptomatic and supportive care, Protonix, offered upper endoscopy but patient declined. Later on and patient requested hospice consult, and decided to go home with hospice. Patient discharged home with hospice. PHYSICAL EXAMINATION: GENERAL: The patient is A&O x3, chronically ill-appearing. HEENT: EOMI, Sclerae anicteric, Moist Mucous membranes Neck: Supple, Non tender, No JVD PULMONARY: Equal breath souds B/L, No wheezing, No crackles. CARDIOVASCULAR: S1, S2 present. No murmurs, rubs, or gallops. ABDOMEN: Soft, nontender, nondistended, normoactive bowel sounds. No guarding or rebound tenderness. MUSCULOSKELETAL: No edema, No cyanosis. No clubbing. Normal ROM. Intact peripheral pulses. NEUROLOGICAL: CN 2-12 grossly intact. No FND SKIN: No rashes. Dictation was produced using [employer] dictation software. please excuse any grammatical, word or spelling errors. Patient Condition at Discharge: Poor Plan - Discharge Summary New Discharge Prescriptions: New LORazepam [Ativan] 1 mg PO Q6H PRN #12 tab PRN Reason: Anxiety Metoprolol Tartrate [Lopressor] 25 mg PO BID #60 tab MORPHINE ORAL JULIAN 2mg/mL [Morphine Oral Soln 2 MG/ML] 2 - 8 mg PO Q4H PRN 10 Days #60 ml PRN Reason: Pain Acetaminophen Tab [Tylenol] 500 mg PO Q6HR PRN tab PRN Reason: Fever And/ Or Pain Scopolamine [Scopolamine 1 MG/72 HR patch] 1 patch TRANSDERM Q72H PRN #3 patch PRN Reason: Secretions Discharge Medication List Acetaminophen Tab [Tylenol] 500 mg PO Q6HR PRN tab 06/02/24 [Rx] LORazepam [Ativan] 1 mg PO Q6H PRN #12 tab 06/02/24 [Rx] MORPHINE ORAL JULIAN 2mg/mL [Morphine Oral Soln 2 MG/ML] 2 - 8 mg PO Q4H PRN 10 Days #60 ml 06/02/24 [Rx] Metoprolol Tartrate [Lopressor] 25 mg PO BID #60 tab 06/02/24 [Rx] Scopolamine [Scopolamine 1 MG/72 HR patch] 1 patch TRANSDERM Q72H PRN #3 patch 06/02/24 [Rx] Follow up Appointment(s)/Referral(s): Ashok Hidalgo MD [Primary Care Provider] - 1-2 days Discharge Disposition: HOME WITH HOSPICE
[2024-06-02 15:33] LABS: Chol/HDL Ratio 7.82 Ratio; LDL Cholesterol,Calculated 52.6 mg/dL (0.0-131.0)
[2024-06-02 15:35] LABS: % Iron Saturation 51.35 (15.00-50.00)
[2024-06-02] MEDS: DARBEPOETIN ALFA 60 MCG/0.3 ML SYRINGE SQ SCH (15:48)
[2024-06-02 17:54] VITALS: BP 139/67; PULSE 66
--- NOTE | 2024-06-02 18:17 | CA ---
Transthoracic Echo Report Name: Chema Cerna Age: 68 Gender: M : 1955 Exam Date: 06/02/2024 13:15 Exam Location: [facility] Ht (in): 64 Wt (lb): 140 Ordering Physician: Lang Hopkins MD Attending/Referring Phys: Wine And Spirits Clerk Ramya Bailey RDCS Procedure CPT: Indications: Cardiomyopathy, atrial fibrillation Cardiac Hx: Technical Quality: Fair Contrast 1: Total Dose (mL): Contrast 2: Total Dose (mL): MEASUREMENTS (Male / Female) Normal Values 2D ECHO LV Diastolic Diameter PLAX 4.8 cm 4.2 - 5.9 / 3.9 - 5.3 cm LV Systolic Diameter PLAX 3.7 cm IVS Diastolic Thickness 1.4 cm 0.6 - 1.0 / 0.6 - 0.9 cm LVPW Diastolic Thickness 1.3 cm 0.6 - 1.0 / 0.6 - 0.9 cm LV Relative Wall Thickness 0.6 RV Internal Dim ED PLAX 2.3 cm LA Systolic Diameter LX 4.2 cm 3.0 - 4.0 / 2.7 - 3.8 cm LV Diastolic Volume MOD BP 72.8 cm??? 67 - 155 / 56 - 104 cm??? LV Systolic Volume MOD BP 27.8 cm??? 22 - 58 / 19 - 49 cm??? LV Ejection Fraction MOD BP 61.8 % >= 55 % LV Cardiac Index MOD BP 1771.2 cm???/min???m??? LV Diastolic Volume MOD 4C 79.3 cm??? LV Systolic Volume MOD 4C 26.4 cm??? LV Ejection Fraction MOD 4C 66.7 % LV Cardiac Index MOD 4C 2080.4 cm???/min???m??? LV Diastolic Length 4C 7.8 cm LV Systolic Length 4C 6.5 cm LV Diastolic Volume MOD 2C 65.0 cm??? LV Systolic Volume MOD 2C 28.2 cm??? LV Ejection Fraction MOD 2C 56.6 % LV Cardiac Index MOD 2C 1446.8 cm???/min???m??? LV Diastolic Length 2C 7.5 cm LV Systolic Length 2C 6.3 cm LA Volume 101.8 cm??? 18 - 58 / 22 - 52 cm??? LA Volume Index 59.8 cm???/m??? 16 - 28 cm???/m??? M-MODE Aortic Root Diameter MM 3.8 cm LA Systolic Diameter MM 4.4 cm LA Ao Ratio MM 1.2 AV Cusp Separation MM 2.2 cm DOPPLER MV Area PHT 2.7 cm??? Mitral E Point Velocity 112.2 cm/s Mitral A Point Velocity 82.0 cm/s Mitral E to A Ratio 1.4 MV Deceleration Time 281.7 ms TR Peak Velocity 233.5 cm/s TR Peak Gradient 21.8 mmHg Right Ventricular Systolic Press 25.9 mmHg FINDINGS Left Ventricle Left ventricular ejection fraction is estimated at 55-60 %. Mildly increased septal wall thickness. Normal left ventricular systolic function with no obvious regional wall motion abnormalities. Right Ventricle Normal right ventricular size and function. Right ventricular systolic pressure within normal limits. Right Atrium Mild right atrial dilatation. Left Atrium Mildly increased left atrial diameter. Severely increased left atrial volume. Mildly increased left atrial area. Mitral Valve Structurally normal mitral valve. Mild mitral regurgitation. No mitral stenosis. Aortic Valve Trileaflet aortic valve. No aortic valve stenosis or regurgitation. Tricuspid Valve Structurally normal tricuspid valve. Trace to mild tricuspid regurgitation. No tricuspid stenosis. Pulmonic Valve Structurally normal pulmonic valve. Trace pulmonic regurgitation. No pulmonic stenosis. Pericardium No pericardial or pleural effusion. Aorta Mild aortic dilatation at the level of the sinuses of valsalva (root). CONCLUSIONS Diagnosis cardiomyopathy and atrial fibrillation LVH with preserved systolic function Biatrial enlargement Previewed by: Dr. Manny Mayers MD (Electronically Signed) Final Date: 02 June 2024 18:16
--- NOTE | 2024-06-02 19:11 | P.CRDCN ---
History of Present Illness Consult date: 06/02/24 History of present illness: HISTORY OF PRESENTING ILLNESS: 68-year-old male presented to the emergency department because of increased generalized weakness He has prior history of coronary artery disease status post CABG. Also has history of CKD This time he presented to the hospital because of dark stools, nausea vomiting for last 3 to 4 days. On admission he was noticed to have acute anemia with concerns of possible GI bleeding. He also had evidence of acute kidney failure with elevated BUN and creatinine. On admission he was noticed to be in atrial fibrillation with RVR. For this cardiology was consulted. At the time of elevation he was in normal sinus rhythm REVIEW OF SYSTEMS: 14 point review of system is negative except what is mentioned above in HPI. PHYSICAL EXAMINATION: Neck: Brisk carotid upstroke, mildly elevated JVP Lungs: Clear to auscultation. Heart: Regular rate and rhythm, mild systolic murmur audible Abdomen: Soft nontender, positive bowel sounds. Extremities: 1+ pitting edema bilateral lower extremity Neuro: Alert, oritented, appears mildly confused, no focal deficit. Detailed neuro exam was not performed. ASSESSMENT: # Atrial fibrillation with RVR on admission, currently sinus rhythm # CAD status post CABG # Acute on chronic anemia # Acute GI bleeding # RICKY likely because of GI bleeding # CKD # Peripheral arterial disease with carotid disease # Multiple CVA in the past Pertinent cardiac test Echo during this admission shows an EF of 55 to 60%, No obvious regional wall motion abnormality, no significant valvular dysfunction PLAN: Resume aspirin 81 mg Discontinue Cardizem drip Start metoprolol tartrate 25 mg twice daily. Start amlodipine 5 mg daily Obtain updated echocardiogram. If cardiomyopathy consider adding GDMT. Recommend iron supplementation and GI workup for bleeding. Other workup of anemia as per primary team. Hold anticoagulation. Patient would benefit from Watchman device. Evaluation should be done on outpatient basis. Recommend outpatient follow-up however it seems that patient has not followed up since his last hospital visit in the outpatient cardiology office. Monitor renal function and urine output and electrolytes. Patient is cleared from cardiovascular standpoint to undergo EGD and colonoscopy and hemodialysis if needed. Lang Hopkins MD, FACC, RPVI Thank you for allowing [facility] to participate in this patient's care. Feel free to reach out in case of any followup questions. Past Medical History Past Medical History: Coronary Artery Disease (CAD), Chest Pain / Angina, Heart Failure, COPD, CVA/TIA, Diabetes Mellitus, Hyperlipidemia, Hypertension, Osteoarthritis (OA), Prostate Disorder, Renal Disease, Sleep Apnea/CPAP/BIPAP, Supraventricular Tachycardia (SVT), Syncope, Vascular Disorder Additional Past Medical History / Comment(s): BACK PAIN , CVA 2013 and TIA 2014- short-term memory problems, rt side still slightly weaker , hx occ double vision & vertigo, tinnitus., sleep apnea (no machine), states kidney disease , uses cane states .,wears continues glucose monitor on abd.,, urine incontinence - wears pads. stroke 09/18 History of Any Multi-Drug Resistant Organisms: None Reported Past Surgical History: Appendectomy, Coronary Bypass/CABG, Heart Catheterization, Hernia Repair, Joint Replacement Additional Past Surgical History / Comment(s): RIGHT HIP REPLACEMENT 2002. Left hip arthroplasty anterior approach 09/09/2018. Quadruple Bypass . Past Anesthesia/Blood Transfusion Reactions: No Reported Reaction Past Psychological History: Anxiety, Depression Smoking Status: Former smoker Past Alcohol Use History: Rare Past Drug Use History: Marijuana - Past Family History Father Family Medical History: Myocardial Infarction (CT) Mother Family Medical History: Coronary Artery Disease (CAD) Daughter(s) Family Medical History: No Reported History Son(s) Family Medical History: No Reported History Medications and Allergies Home Medications Medication Instructions Recorded Confirmed Type Acetaminophen Tab [Tylenol] 500 mg PO Q6HR PRN tab 06/02/24 Rx LORazepam [Ativan] 1 mg PO Q6H PRN #12 tab 06/02/24 Rx MORPHINE ORAL JULIAN 2mg/mL [Morphine 2 - 8 mg PO Q4H PRN 10 Days #60 ml 06/02/24 Rx Oral Soln 2 MG/ML] Metoprolol Tartrate [Lopressor] 25 mg PO BID #60 tab 06/02/24 Rx Scopolamine [Scopolamine 1 MG/72 1 patch TRANSDERM Q72H PRN #3 patch 06/02/24 Rx HR patch] Allergies Allergy/AdvReac Type Severity Reaction Status Date / Time No Known Allergies Allergy Verified 06/01/24 12:17 Physical Exam Vitals: Vital Signs Temp Pulse Resp BP Pulse Ox 06/02/24 10:19 71 18 163/68 99 06/02/24 07:17 66 16 150/67 99 06/02/24 06:00 72 16 145/86 99 06/02/24 04:55 97.7 F 72 16 132/67 98 06/02/24 03:58 97.8 F 71 18 142/74 99 06/02/24 03:38 97.8 F 74 16 132/66 99 06/02/24 03:28 97.8 F 81 18 160/78 99 06/02/24 02:00 74 18 140/68 99 06/02/24 00:05 85 16 156/68 100 06/01/24 21:55 97.9 F 84 16 162/67 100 06/01/24 21:41 84 18 155/69 100 06/01/24 20:45 97.9 F 87 16 148/63 100 06/01/24 20:25 97.9 F 81 18 159/64 100 06/01/24 20:00 85 16 143/70 100 06/01/24 16:16 92 18 144/61 100 06/01/24 12:49 98.0 F 86 20 129/65 100 Intake and Output 06/01/24 06/02/24 06/02/24 22:59 06:59 14:59 Intake Total 310 310 116.583 Balance 310 310 116.583 Intake: Intake, IV Titration 116.583 Amount Diltiazem 125 mg In 116.583 Sodium Chloride 0.9% 100 ml @ 5 MG/HR 5 mls/hr IV .Q24H [facility] Rx#:[id number] Blood Product 310 310 Rc As-1 Unit 310 [id number] Rc As-1 Unit 310 [id number] Results 06/02/24 06:04 06/02/24 02:33 Cardiac Enzymes 06/01/24 06/01/24 06/01/24 Range/Units 10:50 15:40 18:04 AST 21 (17-59) U/L Troponin I 0.057 H* 0.067 H* (0.000-0.034) ng/mL CBC 06/01/24 06/02/24 06/02/24 Range/Units 18:04 01:55 06:04 WBC 9.6 8.6 8.6 (3.8-10.6) k/uL RBC 2.31 L 2.37 L 2.82 L (4.30-5.90) m/uL Hgb 6.7 L* D 6.8 L* 8.2 L (13.0-17.5) gm/dL Hct 21.7 L 21.0 L 25.7 L (39.0-53.0) % Plt Count 134 L 126 L 122 L (150-450) k/uL Comprehensive Metabolic Panel 06/01/24 06/01/24 06/02/24 Range/Units 10:50 15:35 02:33 Sodium 133 L 133 L 131 L (137-145) mmol/L Potassium 6.9 H* 5.1 4.2 (3.5-5.1) mmol/L Chloride 110 H 108 H 105 (98-107) mmol/L Carbon Dioxide 7 L* 11 L 16 L (22-30) mmol/L BUN 130 H* 132 H* 117 H* (9-20) mg/dL Creatinine 5.34 H 5.42 H 4.86 H (0.66-1.25) mg/dL Glucose 364 H 222 H 245 H (74-99) mg/dL Calcium 6.9 L 7.3 L 7.2 L (8.4-10.2) mg/dL AST 21 (17-59) U/L ALT 19 (4-49) U/L Alkaline Phosphatase 73 (38-126) U/L Total Protein 4.9 L (6.3-8.2) g/dL Albumin 2.6 L (3.5-5.0) g/dL Current Medications Generic Name Dose Route Start Last Admin Trade Name Freq PRN Reason Stop Dose Admin Acetaminophen 500 mg 06/02/24 08:42 Acetaminophen Tab 500 Mg Tab PO Q6HR PRN Fever and/ or Pain Amlodipine Besylate 5 mg 06/02/24 11:45 Amlodipine 5 Mg Tab PO DAILY [facility] Aspirin 81 mg 06/02/24 11:45 Aspirin 81 Mg PO DAILY [facility] Atorvastatin Calcium 40 mg 06/02/24 21:00 Atorvastatin 40 Mg Tab PO HS [facility] Darbepoetin Jason 60 mcg 06/02/24 11:00 Darbepoetin Jason 60 Mcg/0.3 Ml Syringe SQ Q7D [facility] Hydromorphone HCl 0.5 mg 06/01/24 12:41 Hydromorphone 0.5 Mg/0.5 Ml Syringe IVP Q3HR PRN Moderate Pain (Scale 4 to 6) Diltiazem HCl 125 mg/ Sodium 125 mls @ 5 mls/hr 06/01/24 10:15 06/02/24 10:19 Chloride IV 5 mg/hr .Q24H TERESA 5 mls/hr Administration 5 MG/HR Sodium Bicarbonate 150 ml/ 1,150 mls @ 100 mls/hr 06/01/24 18:00 06/02/24 09:29 Dextrose/Water IV 100 mls/hr .[id number] TERESA Administration Metoprolol Tartrate 25 mg 06/02/24 11:45 Metoprolol Tartrate 25 Mg Tab PO BID TERESA Naloxone HCl 0.2 mg 06/01/24 12:41 Naloxone 0.4 Mg/Ml 1 Ml Vial IV Q2M PRN Opioid Reversal Pantoprazole Sodium 40 mg 06/01/24 21:00 06/02/24 07:59 Pantoprazole 40 Mg/10 Ml Vial IVP 40 mg BID TERESA Administration Intake and Output 06/01/24 06/02/24 06/02/24 22:59 06:59 14:59 Intake Total 310 310 116.583 Balance 310 310 116.583 Intake: Intake, IV Titration 116.583 Amount Diltiazem 125 mg In 116.583 Sodium Chloride 0.9% 100 ml @ 5 MG/HR 5 mls/hr IV .Q24H [facility] Rx#:[id number] Blood Product 310 310 As-1 Unit 310 [id number] As-1 Unit 310 [id number] 06/02/24 06:04 06/02/24 02:33
[2024-06-02] MEDS ORDERED: ATORVASTATIN 40 MG TAB PO SCH (21:00)
--- NOTE | 2024-06-06 06:02 | CDI ---
Documentation Clarification Form Date: 06/06/2024 05:34:16 AM From: Violet Anguiano Phone: Admit Date: 06/01/2024 12:43:00 PM Patient Name: Chema Cerna Visit Number: [id number] Discharge Date: 06/02/2024 07:20:00 PM ATTENTION: The Clinical Documentation Specialists (CDI) and [facility] Coding Staff appreciate your assistance in clarifying documentation. Please respond to the clarification below the line at the bottom and electronically sign. The CDI & [facility] Coding staff will review the response and follow-up if needed. Please note: Queries are made part of the Legal Health Record. If you have any questions, please contact the author of this message via ITS. Doctor/Provider: Brayan Caballero., Your patient has demand ischemia, likely secondary to CKD documented in the H&P. Based on this information and the findings below, is there an additional diagnosis that is clinically appropriate for this patient? Patient history/risk factors: Hx of CABG, Hypertensive heart and CKD stage V, T2DM w CKD, COPD, CAD Clinical Indicators: VS:T 97.4, P 156, R 22, BP 128/97 O2 Sat 99 Troponin: 3/6: 0.047, 0.057, 0.067 EKG Results: Atrial fibrillationrate of 143, QRS duration 98, QTc 374noST segment elevation. Treatment: Monitor with serial EGGs & Troponins Is there an additional diagnosis that is clinically appropriate for this patient? [ x ] Type II SD due to Afib with rvr [ ] No additional diagnosis/Not clinically significant [ ] Unable to determine [ ] Other, please specify MTDD
== END 2024-06-02 19:20 | disposition hospice, home (50) | DRG 682 ==
LOC: EC 09:47 → 3SCARD 12:43
PROVIDERS: ADMIT Hospitalist; ATTEND Hospitalist
PROC: 30233N1 Transfusion of Nonautologous Red Blood Cells into Peripheral Vein, Percutaneous Approach (ICD-10-PCS; principal; 2024-06-01)
DX: N17.0 Acute kidney failure with tubular necrosis (principal); I21.A1 Myocardial infarction type 2; I13.2 Hypertensive heart and chronic kidney disease with heart failure and with stage 5 chronic kidney disease, or end stage renal disease; E87.20 Acidosis, unspecified; Z51.5 Encounter for palliative care; D63.1 Anemia in chronic kidney disease; R62.7 Adult failure to thrive; E86.1 Hypovolemia; I48.91 Unspecified atrial fibrillation; N18.5 Chronic kidney disease, stage 5; E11.22 Type 2 diabetes mellitus with diabetic chronic kidney disease; J44.9 Chronic obstructive pulmonary disease, unspecified; F32.A Depression, unspecified; K92.1 Melena; E11.51 Type 2 diabetes mellitus with diabetic peripheral angiopathy without gangrene; I50.9 Heart failure, unspecified; Z91.158 Patient's noncompliance with renal dialysis for other reason; E87.5 Hyperkalemia; Z68.24 Body mass index [BMI] 24.0-24.9, adult; I25.10 Atherosclerotic heart disease of native coronary artery without angina pectoris; F41.9 Anxiety disorder, unspecified; K57.30 Diverticulosis of large intestine without perforation or abscess without bleeding; M54.9 Dorsalgia, unspecified; R32 Unspecified urinary incontinence; G47.30 Sleep apnea, unspecified; H93.19 Tinnitus, unspecified ear; N42.9 Disorder of prostate, unspecified; E78.5 Hyperlipidemia, unspecified; Z91.128 Patient's intentional underdosing of medication regimen for other reason; Z79.899 Other long term (current) drug therapy; Z87.891 Personal history of nicotine dependence; Z95.1 Presence of aortocoronary bypass graft; Z96.643 Presence of artificial hip joint, bilateral; Z86.73 Personal history of transient ischemic attack (TIA), and cerebral infarction without residual deficits
CPT/HCPCS: 36415; 36430; 51798; 71046; 80048; 80053; 80061; 81001; 82272; 83036; 83540; 83550; 83735; 83880; 84443; 84484; 85025; 85027; 85610; 85730; 86850; 86900; 86901; 86920; 87636; 93005; 93306; 96365; 96366; 96367; 96368; 96374; 96375; 96376; 99291